=== PATIENT | male | born 1945 | race Caucasian/White ===

== ENCOUNTER 2016-10-08 14:38 | Inpatient (IN) | payer MEDICARE, OTHER ==
[~2016-10-08] VITALS: Ht 182.9 cm; Wt 84.3 kg
[2016-10-08 14:58] VITALS: BP 161/92; PULSE 96; RESP 22; O2SAT 99
[2016-10-08 15:45] LABS: Mean Corpuscular Hemoglobin 31.3 pg (27.0-35.0); Mean Corpuscular Volume 91.7 fL (81-100)
[2016-10-08 15:46] LABS: Platelet Count 60 bil/L (150-400)
[2016-10-08 15:47] LABS: Magnesium 1.4 mg/dL (1.6-2.6)
[2016-10-08 16:29] LABS: BASOPHILS % (AUTO) 0 % (0-3); EOSINOPHILS % (AUTO) 0 % (0-5); MONOCYTES % (AUTO) 8 % (4-12); NEUTROPHILS % (AUTO) 2 % (40-74)
[2016-10-08] MEDS ORDERED: Sodium Chloride LOK Flush 10 mL Syringe IVFLUSH PRN ×2 (16:40)
[2016-10-08] MEDS ORDERED: Vancomycin Dose per Pharmacist XX SCH (16:45)
[2016-10-08] MEDS: MEROPENEM IV ONE ×2 (16:45→19:00)
[2016-10-08 16:56] LABS: INR 1.32 ratio
[2016-10-08] MEDS ORDERED: Vancomycin Dose per Pharmacist XX ONE (17:04)
[2016-10-08] MEDS ORDERED: Vancomycin Inj 1,500 MG in 0.9% Sodium Chloride 500 ML IV ONE (17:05)
--- NOTE | 2016-10-08 17:06 | PCM.PHAPRO ---
Progress Patient is a 71 y.o. male receiving vancomycin. Concurrent abx include: meropenum. Based on patient parameters vancomycin will receive a one-time dose of 1500mg Please reconsult pharmacy if the patient is admitted and you wish for vancomycin therapy to continue. Thank you for the consult in the care of this patient. RTM PharmD Collin Cohen Oct 08, 2016 17:06
[2016-10-08] MEDS: SODIUM CHLORIDE 0.9% IV SCH ×2 (17:30→19:38)
[2016-10-08] MEDS: SODIUM BICARB IV SCH ×2 (17:30→19:38)
--- NOTE | 2016-10-08 17:34 | ED.REPORT ---
HPI-Abd Pain M 40 and Over Date of Service Oct 08, 2016 ED Provider: Dandre Garcia MD 71 year old male with a hx of HTN presents to the ED due to abdominal pain onset 2 days ago. Associated symptoms include hiccups, fatigue, cough, night sweats, trouble urinating, diarrhea, thirst, fever, and abdominal distension. Patient's relays that he developed a sinus infection in August and went on a course of Augmentin. His stomach irritation began at this time and the infection has never completely resolved. He was put on Doxycycline 10 days ago to try to relieve his symptoms which was not effective. He was seen by his PCP two days ago and his abdominal pain continues to increase in severity. Pt rates his current pain at 5/10 and is not exacerbated by movement. In the past week, he has lost 4 lbs; has decreased, darkly colored urination; intermittent fever; and night sweats. Pt's says that he is slow and confused which is quite abnormal. Nursing Notes Stated Complaint: ABDOMINAL PAIN Chief Complaint: Male Abdominal Pain Nursing Notes Reviewed: Yes ([employer] not reconciled) Allergies: Coded Allergies: atenolol (Verified Allergy, Severe, hives, 10/08/16) doxycycline (Verified Adverse Reaction, Severe, abdominal cramping, ) amlodipine (Verified Adverse Reaction, Intermediate, ankle swelling, ) cetirizine (Verified Adverse Reaction, Intermediate, prostate issues, 10/08) hydrochlorothiazide (Verified Adverse Reaction, Intermediate, headache, ) hydrocodone (Verified Adverse Reaction, Intermediate, upset stomach, ) lisinopril (Verified Adverse Reaction, Intermediate, low sodium, 10/08/16) piroxicam (Verified Adverse Reaction, Intermediate, low iron, 10/08/16) Scheduled Diltiazem ER (Cartia XT) 120 Mg Cap.er.24h 120 MG PO QAM Omeprazole (Omeprazole) 20 Mg Capsule.dr 20 MG PO QAM Scheduled PRN Acetaminophen (Tylenol Arthritis) 650 Mg Tablet.er 1,300 MG PO TID PRN PRN For Pain Clobetasol Propionate (Clobetasol Propionate) 15 Gm Oint...g. 1 APPLIC TOPICAL DAILY PRN PRN scalp itching Naproxen Sodium (Aleve) 220 Mg Capsule 220 MG PO BID PRN PRN For Pain Sildenafil Citrate (Viagra) 100 Mg Tablet 50 MG PO DAILY PRN PRN for sexual activity General Time Seen by MD: 16:16 Chief Complaint Abdominal pain Hx Obtained From: Patient, Spouse Arrived By: Walk-in Sudden in Onset?: Yes Onset Occurred: More than a week ago... 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 Skin: Reports Diaphoresis Psychiatric: Reports: Confusion Physical Exam Initial Vital Signs Vital Signs (First) Date Time Temp Pulse Resp B/P Pulse Ox O2 Delivery O2 Flow Rate FiO2 10/08/16 14:58 37.4 96 22 161/92 99 Initial VS: Reviewed, Vital signs normal (except for mild hypertension) Head / Eyes: Atraumatic, Normocephalic, PERRL Extremities: Vascular intact, Neuro intact, No swelling, No tenderness Skin: Warm, Dry, No cyanosis Neurologic: Alert, Oriented, Nonfocal Psychiatric: Mood/affect normal, Behavior normal, Normal thought content General/Constitutional: Awake, Alert, Cooperative, Not toxic appearing Alertness: Positive: Confused Respiratory / Chest: Atraumatic, Breath sounds NL, Breath sounds = bilat, No respiratory distress Cardiovascular: Heart rate NL, Regular rhythm, Heart sounds NL Abdomen: Atraumatic, Non-tender pt and say abdomen is distended but this is not clinically appartent don't appreciate any masses or hernias Back: Atraumatic, Inspection NL, Full range of motion Interpretation & Diagnostics Interpretation & Diagnostics: BRAIN CT IMPRESSION: 1. No acute intracranial process. 2. Mild to moderate atrophy and chronic microvascular ischemic changes. 3. Right maxillary sinus disease. Dictated by: Fernanda Gaines M.D. on 10/08/2016 at 18:00 Approved by: Fernanda Gaines M.D. on 10/08/2016 at 18:01 Lab Results Interpretation Result Diagram: 10/08/16 1516 10/08/16 1516 Test 10/08/16 15:16 10/08/16 18:05 10/08/16 18:14 White Blood Count 216.8th/mm3 (3.8-10.1) Red Blood Count 2.65mil/mm3 (4.40-5.80) Hemoglobin 8.3g/dL (13.8-17.2) Hematocrit 24.3% (41.0-50.0) Mean Corpuscular Volume 91.7fL (81-100) Mean Corpuscular Hemoglobin 31.3pg (27.0-35.0) Mean Corpuscular Hemoglobin Concent 34.2% (32.0-37.0) Red Cell Distribution Width 19.2% (12.3-15.4) Platelet Count 60bil/L (150-400) Neutrophils (%) (Auto) 2% (40-74) Lymphocytes (%) (Auto) 2% (14-46) Monocytes (%) (Auto) 8% (4-12) Eosinophils (%) (Auto) 0% (0-5) Basophils (%) (Auto) 0% (0-3) Blast Cells % 88% (0-0) Prothrombin Time 14.2sec (8.1-12.5) Prothromb Time International Ratio 1.32ratio Activated Partial Thromboplast Time 29.9sec (22.8-33.0) Fibrinogen 506mg/dL (157-380) Lactic Acid Level 2.3mmol/L (0.4-2.0) Magnesium Level 1.4mg/dL (1.6-2.6) Total Bilirubin 1.7mg/dL (0.0-1.2) Direct Bilirubin 0.8mg/dL (0.0-0.3) Aspartate Amino Transf (AST/SGOT) 45U/L (0-50) Alanine Aminotransferase (ALT/SGPT) 30U/L (0-44) Alkaline Phosphatase 128U/L (25-160) Lactate Dehydrogenase 580U/L (100-190) Total Protein 6.5g/dL (6.4-8.4) Albumin 3.6g/dL (3.4-5.0) Lipase 8U/L (13-60) Hold [place]re Top Tube Received (Received) Urine Color Dark yellow (YELLOW) Urine Appearance Hazy (CLEAR,HAZY) Urine pH 5.5 (5.0-8.0) Urine Specific Frostproof 1.010 (1.003-1.035) Urine Protein 30mg/dL (NEG,TRACE) Urine Glucose (UA) Negativemg/dL (NEGATIVE) Urine Ketones Tracemg/dL (NEGATIVE) Urine Occult Blood Trace (NEGATIVE) Urine Nitrite Negative (NEGATIVE) Urine Bilirubin Negative (NEGATIVE) Urine Urobilinogen 2.0mg/dL (NORMAL) Urine Leukocyte Esterase Negative (NEGATIVE) Urine RBC 0-2/hpf (0-2) Urine WBC 0-5/hpf (0-5) Urine Epithelial Cells Few/hpf (NONE-MOD) Urine Crystals None seen (NONE SEEN) Urine Bacteria Few/hpf (NONE-FEW) Urine Hyaline Casts Rare/lpf (NONE) Urine Granular Casts None seen (NONE SEEN) Urine Waxy Casts None seen (NONE SEEN) Urine Red Blood Cell Casts None seen (NONE SEEN) Urine White Blood Cell Casts None seen (NONE SEEN) Urine Mucus Present (None Seen) Urine Trichomonas None seen (NONE SEEN) Urine Yeast None (NONE SEEN) Urinalysis Comment None Urine Culture Reflexed Not indicated Lab Results Interpretation: CBC low there are severe leukocytosis, 80% blasts in the differential, and pathology called to indicate initials smear's indicates, anemia, thrombocytopenia CMP reveals significant hyponatremia, although there may be a component of pseudohyponatremia secondary to leukocytosis, renal function is normal LDH elevated Fibrinogen elevated Flow cytometry ordered Blood cultures pending Lactic acid marginally elevated CT Abd / Pelvis Interpretation IMPRESSION: 1. Mild dependent changes and trace effusions within the lungs bilaterally. 2. Hepatic steatosis. 3. Mild splenomegaly. 4. Minimal to mild scattered fluid within the abdomen and pelvis as above. 5. Unchanged hypodensity within the pancreatic uncinate process/head. Dictated by: Fernanda Gaines M.D. on 10/08/2016 at 18:06 Approved by: Fernanda Gaines M.D. on 10/08/2016 at 18:10 Study type: Abdominal CT no contrast Interpretation / Wet Read by: Interpret - Radiologist Re-Eval/Medical Decision Med Decision/Clinical Course This is a 71-year-old male presents complaining fevers, chills, sinus discomfort , and now abdominal pain. He has been treated with Augmentin due to sinus symptoms in August, the persisted and then treated with doxycycline which he discontinued to development of some abdominal cramping after 4 days, and that is been having fevers, chills and abdominal cramping and discomfort markedly more severe over the past 2 days. His is no little bit of trace confusional patient's able to give a good history. Has not markedly evident, he has been feeling much more profound fatigue. His chest pain shortness of breath. He has been having sweats that he associates with the fevers, but denies typical night sweats. He has noted mild weight loss. He is also complaining of fairly intractable hiccups past couple days, and then reports that they severely exacerbate the abdominal pain. He was seen by his PCP, referred to the surgeon and referred to the ED for further evaluation. He has normal vitals, but he appears very fatigued. He is not toxic, is not currently febrile, and his abdomen is clinically benign without signs of an acute surgical abdomen. The patient is white both say that his abdomen feels a little distended, but is not clear that clinically evident on my exam, and I do not appreciate overt ascites. I do not appreciate overt adenopathy. Patient's labs are dramatically abnormal, and severe leukocytosis and lasts are indicative of a new onset leukemia. Lab was sent to pathology, the pathologist review also indicates the presence of acute leukemia. Dr. Sai Allred from hematology oncology is involved, and called in with recommendations to facilitate the initial workup and treatment. Flow cytometry has been sent. Additional labs, including cultures are being drawn. The patient's been started on IV fluids with normal saline and 25 mEq of sodium bicarbonate per liter at a rate of 150 mL/h being initiated. Patient received some pain medicine and is significantly improved on reevaluation. When imaging is still reveals a right-sided sinusitis, and chest abdomen pelvis was without the definitive pathology evident on imaging. Dr. Balbuena recommended initiation of posterior 3 g, treatment with meropenem and vancomycin, along with the fluids. For the patient's intractable hiccups and some haloperidol was being administered. The PICC line is being requested, symptomatically recommends either us double or triple lumen PICC line to facilitate the anticipated course of therapy. The patient and are updated as to the findings of the leukemia. Dr. Schneider will see the patient in the morning. The patient is being admitted to the hospitalist service for continued management. Source of Hx: Old records Time of Eval: 18:27 Patient Status: Condition unchanged Re-Evaluation/Progress Note: Pt rechecked. Informed pt and of diagnosis of acute leukemia and initial plan of treatment. Pt will be started on antibiotics, pain meds, and chemotherapy immediately. Dr. Sai Balbuena will accept admit and will see the patient soon. Pt understands and agrees with plan. All questions addressed. Consultation : Referral / Consult Name: Sai Balbuena MD Consulted With: Hospitalist Call Returned at: 18:15 [employer]: Will see patient, Agrees with eval, Agrees with plan, Accepts admit Note: Case discussed with Dr. Balbuena. He will see patient and accept admit. Counseled Regarding: Diagnosis, Lab results, Need for admission Discharge & Departure Primary Impression: Acute leukemia Additional Impressions: Hyponatremia Sinusitis Sinusitis location: unspecified location Chronicity: unspecified Qualified Code: J32.9 - Chronic sinusitis, unspecified Abdominal pain Abdominal location: generalized Qualified Code: R10.84 - Generalized abdominal pain Singultus Disposition: ADMITTED TO HOSPITAL Vital Signs - All Vital Signs Date Time Temp Pulse Resp B/P Pulse Ox O2 Delivery O2 Flow Rate FiO2 10/08/16 14:58 37.4 96 22 161/92 99 )( All Prior VS Reviewed: Yes Condition: Stable Referrals: Bob Velarde MD (PCP) Afua Attestation Portion of this note were transcribed by Lopez Velásquez. I, Dr. Garcia, personally performed the history, physical exam, and medical decision-making: I reviewed and confirmed the accuracy for the information in the transcribed note. Signed by: afua Hernandez, 10/08/16 [id number] copies to: Bob Velarde MD, Matthew F MD Oct 08, 2016 17:34 LOPEZ VELÁSQUEZ 17, 2017 18:33 Counseled Regarding: Diagnosis, Lab results, Need for admission Discharge & Departure Primary Impression: Acute leukemia Additional Impressions: Hyponatremia Sinusitis Sinusitis location: unspecified location Chronicity: unspecified Qualified Code: J32.9 - Chronic sinusitis, unspecified Abdominal pain Abdominal location: generalized Qualified Code: R10.84 - Generalized abdominal pain Singultus Disposition: ADMITTED TO HOSPITAL Vital Signs - All Vital Signs Date Time Temp Pulse Resp B/P Pulse Ox O2 Delivery O2 Flow Rate FiO2 10/08/16 14:58 37.4 96 22 161/92 99 )( All Prior VS Reviewed: Yes Condition: Stable Referrals: Bob Velarde MD (PCP) Scribe Attestation Portion of this note were transcribed by Lopez Velásquez. I, Dr. Garcia, personally performed the history, physical exam, and medical decision-making: I reviewed and confirmed the accuracy for the information in the transcribed note. Signed by: afua Hernandez, 10/08/16 [id number] copies to: Bob Velarde MD, Matthew F MD Oct 08, 2016 17:34 LOPEZ VELÁSQUEZ Oct 08, 2016 18:33
[2016-10-08] MEDS ORDERED: ACET-2766 PO (17:36)
[2016-10-08] MEDS ORDERED: SILD100T PO (17:36)
[2016-10-08] MEDS ORDERED: NAPR220C11 PO (17:36)
[2016-10-08] MEDS ORDERED: CLOB15OI2 TOPICAL (17:36)
[2016-10-08] MEDS ORDERED: DILT120C52 PO (17:36)
[2016-10-08] MEDS ORDERED: OMEP20CA11 PO (17:36)
[2016-10-08] MEDS ORDERED: Ondansetron 2 mg/mL 2 mL Inj IVPUSH ONE (17:40)
--- NOTE | 2016-10-08 18:03 | DRSVH ---
PROCEDURE: CT BRAIN WITHOUT CONTRAST ([id number]) INDICATIONS: confusion TECHNIQUE: Noncontrast 4.5 mm thick angled axial sections acquired from the foramen magnum to the vertex, with c oronal reformats. COMPARISON: None. FINDINGS: Image quality: Excellent. CSF spaces: Basal cisterns are patent. No extra-axial fluid collections. The ventricles are symmet carolyn in size and shape. Brain: No intracranial bleeds or masses. There is cerebral volume loss for age, with resultant vent ricular and sulcal prominence. There are periventricular and deep white matter chronic small vessel ischemic changes. There is intracranial internal carotid artery atherosclerosis. Skull and face: Calvarium and visualized facial bones appear intact, without suspicious lesions. Sinuses: Prominent mucosal thickening and fluid are present within the right maxillary sinus. IMPRESSION: 1. No acute intracranial process. 2. Mild to moderate atrophy and chronic microvascular ischemic changes. 3. Right maxillary sinus disease. Dictated by: Fernanda Gaines M.D. on 10/08/2016 at 18:00 Approved by: Fernanda aGines M.D. on 10/08/2016 at 18:01
[2016-10-08] MEDS: HYDROmorphone 0.5 mg/0.5 mL iSecure Syringe IVPUSH PRN ×2 (18:12→21:42)
--- NOTE | 2016-10-08 18:12 | DRSVH ---
PROCEDURE: CT CHEST, ABDOMEN AND PELVIS WITH CONTRAST ([id number]) INDICATIONS: Fever, pain, bloodwork suggests new leukemia TECHNIQUE: After the administration of intravenous contrast, 5 mm thick sections acquired from the lung apices t o the symphysis. 5 mm coronal and sagittal reformats were performed, with additional 7 mm MIP reform ats through the lungs. For radiation dose reduction, the following was used: automated exposure con trol, adjustment of mA and/or kV according to patient size. COMPARISON: [facility], CT, ABDOMEN W&W/O CONTRAST, 08/17/2011, 12:34. FINDINGS: Image quality: Excellent. CHEST: Lungs and pleura: Mild dependent changes are present with trace effusions. Mediastinum: Heart size is normal. No pericardial effusion. No mediastinal or hilar adenopathy by size criteria. Thoracic aorta and central pulmonary arteries are normal in size. Esophagus is liliana l in caliber. No hiatal hernia. Chest wall: No axillary or supraclavicular adenopathy by size criteria. Thyroid gland is unremarkab le. ABDOMEN: Solid organs: Liver is mildly prominent with steatosis. The spleen is mildly enlarged without focal mass. Gallbladder is unremarkable. Biliary system is non dilated. Pancreas demonstrates an unchange d hypodense focus within hepatic head and uncinate process, compared to 08/17/11. No adrenal nodules. Kidneys demonstrate normal size and enhancement, without hydronephrosis. Peritoneum and bowel: Bowel loops demonstrate normal wall thickness and caliber. There is a minimal appearance of scattered fluid within the abdomen and dependent pelvis. It is seen most prominently in the left lower abdomen. Nodes and vessels: No retroperitoneal or mesenteric adenopathy by size criteria. Aorta and inferior vena cava are normal in size. Miscellaneous: No ventral hernias. PELVIS: Genitourinary: Bladder wall thickness is normal. Portions of the bladder are suboptimally evaluated secondary to metallic streak artifact from bilateral hip arthroplasties. Miscellaneous: No inguinal hernias or adenopathy. Bones: No suspicious bony lesions. No vertebral body compression fractures. IMPRESSION: 1. Mild dependent changes and trace effusions within the lungs bilaterally. 2. Hepatic steatosis. 3. Mild splenomegaly. 4. Minimal to mild scattered fluid within the abdomen and pelvis as above. 5. Unchanged hypodensity within the pancreatic uncinate process/head. Dictated by: Fernanda Gainse M.D. on 10/08/2016 at 18:06 Approved by: Fernanda Gaines M.D. on 10/08/2016 at 18:10
[2016-10-08] MEDS: Haloperidol 5 mg/mL Inj IVPUSH ONE ×2 (18:53→19:00)
[2016-10-08 18:58] LABS: APPEARANCE,URINE HAZY (CLEAR,HAZY); COLOR,URINE DARK YELLOW (YELLOW); OCCULT BLOOD,URINE TRACE (NEGATIVE); PH,URINE 5.5 (5.0-8.0)
[2016-10-08] MEDS ORDERED: HYDROmorphone 0.5 mg/0.5 mL iSecure Syringe IVPUSH PRN (19:30)
[2016-10-08] MEDS ORDERED: Ondansetron 2 mg/mL 2 mL Inj IVPUSH PRN ×2 (19:30)
[2016-10-08] MEDS ORDERED: Alum-Mag Hydrox-Simeth 30 mL Suspension PO PRN (19:30)
[2016-10-08 19:59] VITALS: BP 158/89; PULSE 98; RESP 20; O2SAT 99
[2016-10-08] MEDS ORDERED: Clobetasol Prop 0.05% 15 Gm Ointment TOPICAL PRN (20:00)
[2016-10-08] MEDS ORDERED: Sodium Chloride NAS 45 mL Spray NASAL ONE (20:00)
[2016-10-08] MEDS ORDERED: Sodium Chloride NAS 45 mL Spray NASAL PRN (20:00)
[2016-10-08 20:36] VITALS: BP 137/67; PULSE 99; RESP 20; O2SAT 92
[2016-10-08] MEDS ORDERED: Pantoprazole 4 mg/mL 10 mL Inj IVPUSH SCH (21:15)
[2016-10-08] MEDS ORDERED: Magnesium Sulf 2 Gm/50mL Water 2 GM in IV Premix 1 EACH IV ONE (21:20)
--- NOTE | 2016-10-08 23:38 | PCM.HPMED ---
Subjective Date of Service Oct 08, 2016 Primary Provider: Admitting Physician: May Hayward MD Primary Care Physician: Bob Velarde MD Attending Physician: May Hayward MD Chief Complaint: Fever HISTORY was OBTAINED FROM PATIENT / MEDITECH NOTES History of present illness 71-year-old man presented after 2 week history of sinus congestion/URI symptoms since 08/22/2016, no better with Augmentin and doxycycline stopped due to upset GI, then developed current 2 week history of abdominal discomfort cramping diffusely, bloating, vomiting not blood, diarrhea/ hiccoughs lasting 1+ hours, then developed fever for one day associated w/ confusion per - seen by PCP who sent them to the ER. One week history of 4 pound weight loss, dark urine, night sweats, intermittently confused per . Improved nasal breathing per after meropenem and vancomycin, no sore throat. In the ER 161/92, 92% on nasal cannula, afebrile, heart rate 99, respiratory rate 20, sodium bicarbonate, Dilaudid, Haldol, hydroxyurea, meropenem, vancomycin, Zofran, [facility], PICC line. ER doctor spoke to Dr. Balbuena oncologist, multiple studies and treatment for infection IV fluids were recommended Review of Systems - none of the following - F/C/sick contact / wt change/ STAPLES / no CP no acid reflux / bleeding/bruising / / yeast infections / rash ambulates edema shins due to diltiazem FAMILY HX grandmother unknonw cancer, CAD SOCIAL HX former smoker, intermittent EtOH MEDICATIONS Diltiazem ER (Cartia XT) 120 Mg Cap.er.24h 120 MG PO QAM - for BP Omeprazole (Omeprazole) 20 Mg Capsule. 20 MG PO QAM Scheduled PRN Acetaminophen (Tylenol Arthritis) 650 Mg Tablet.er 1,300 MG PO TID PRN PRN For Pain Clobetasol Propionate (Clobetasol Propionate) 15 Gm Oint...g. 1 APPLIC TOPICAL DAILY PRN PRN scalp itching Naproxen Sodium (Aleve) 220 Mg Capsule 220 MG PO BID PRN PRN For Pain Sildenafil Citrate (Viagra) 100 Mg Tablet 50 MG PO DAILY PRN PRN for sexual activity Past Medical/Surgical HX Hypospadias/erectile dysfunction/BPH History of cervical adenopathy 2003 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 Environmental sinus congestion allergies Hypertension Diverticulitis/acid reflux Arthritis/laminectomy Cataracts /hernia repairs 2 Sigmoidoscopy prior hyopnatremia mild due to HCTZ Allergies Coded Allergies: atenolol (Verified Allergy, Severe, hives, 10/08/16) doxycycline (Verified Adverse Reaction, Severe, abdominal cramping, ) amlodipine (Verified Adverse Reaction, Intermediate, ankle swelling, ) cetirizine (Verified Adverse Reaction, Intermediate, prostate issues, 10/08) hydrochlorothiazide (Verified Adverse Reaction, Intermediate, headache, ) hydrocodone (Verified Adverse Reaction, Intermediate, upset stomach, ) lisinopril (Verified Adverse Reaction, Intermediate, low sodium, 10/08/16) piroxicam (Verified Adverse Reaction, Intermediate, low iron, 10/08/16) PMH Social History Hx Substance Use: No Smoking Status: Former Smoker Exam Vital Signs Vital Sign - Last Date Time Temp Pulse Resp B/P Pulse Ox O2 Delivery O2 Flow Rate FiO2 10/08/16 20:36 37.5 99 20 137/67 92 Nasal Cannula 2.00 Lab and Diagnostics Labs Exam on admission 2L NC NAD A and O x 3 mood affect WNL very drowsy NC/AT no icterus no injected eyes EOMI PERRL // no oral lesions / hearing intact // THRUSH Supple neck CTAB equal chest rise / no accessory muscle use / speaks in full sentences / no rrw RRR S1 S2 / no mrg / 2+ radial pulses Soft nt nd + BS no hepatosplenomegaly No edema no cyanosis no ecchymosis of lower extremities No rash / no jaundice SHIPMAN Blood cultures pending Lactic acid 2.3 UA negative LFT lipase normal//INR 1.3// Bilirubin 1.7 LDH 580 Imaging PROCEDURE: CT CHEST, ABDOMEN AND PELVIS WITH CONTRAST ([id number]) INDICATIONS: Fever, pain, bloodwork suggests new leukemia TECHNIQUE: After the administration of intravenous contrast, 5 mm thick sections acquired from the lung apices to the symphysis. 5 mm coronal and sagittal reformats were performed, with additional 7 mm MIP reformats through the lungs. For radiation dose reduction, the following was used: automated exposure control, adjustment of mA and/or kV according to patient size. COMPARISON: [facility], CT, ABDOMEN W&W/O CONTRAST, 08/17/2011 , 12:34. FINDINGS: Image quality: Excellent. CHEST: Lungs and pleura: Mild dependent changes are present with trace effusions. Mediastinum: Heart size is normal. No pericardial effusion. No mediastinal or hilar adenopathy by size criteria. Thoracic aorta and central pulmonary arteries are normal in size. Esophagus is normal in caliber. No hiatal hernia. Chest wall: No axillary or supraclavicular adenopathy by size criteria. Thyroid gland is unremarkable. ABDOMEN: Solid organs: Liver is mildly prominent with steatosis. The spleen is mildly enlarged without focal mass. Gallbladder is unremarkable. Biliary system is non dilated. Pancreas demonstrates an unchanged hypodense focus within hepatic head and uncinate process, compared to 08/17/11. No adrenal nodules. Kidneys demonstrate normal size and enhancement, without hydronephrosis. Peritoneum and bowel: Bowel loops demonstrate normal wall thickness and caliber. There is a minimal appearance of scattered fluid within the abdomen and dependent pelvis. It is seen most prominently in the left lower abdomen. Nodes and vessels: No retroperitoneal or mesenteric adenopathy by size criteria. Aorta and inferior vena cava are normal in size. Miscellaneous: No ventral hernias. PELVIS: Genitourinary: Bladder wall thickness is normal. Portions of the bladder are suboptimally evaluated secondary to metallic streak artifact from bilateral hip arthroplasties. Miscellaneous: No inguinal hernias or adenopathy. Bones: No suspicious bony lesions. No vertebral body compression fractures. IMPRESSION: 1. Mild dependent changes and trace effusions within the lungs bilaterally. 2. Hepatic steatosis. 3. Mild splenomegaly. 4. Minimal to mild scattered fluid within the abdomen and pelvis as above. 5. Unchanged hypodensity within the pancreatic uncinate process/head. PROCEDURE: CT BRAIN WITHOUT CONTRAST ([id number]) INDICATIONS: confusion TECHNIQUE: Noncontrast 4.5 mm thick angled axial sections acquired from the foramen magnum to the vertex, with coronal reformats. COMPARISON: None. FINDINGS: Image quality: Excellent. CSF spaces: Basal cisterns are patent. No extra-axial fluid collections. The ventricles are symmetric in size and shape. Brain: No intracranial bleeds or masses. There is cerebral volume loss for age , with resultant ventricular and sulcal prominence. There are periventricular and deep white matter chronic small vessel ischemic changes. There is intracranial internal carotid artery atherosclerosis. Skull and face: Calvarium and visualized facial bones appear intact, without suspicious lesions. Sinuses: Prominent mucosal thickening and fluid are present within the right maxillary sinus. IMPRESSION: 1. No acute intracranial process. 2. Mild to moderate atrophy and chronic microvascular ischemic changes. 3. Right maxillary sinus disease. 05/2015 echo Interpretation Summary The left ventricle is normal in size, wall thickness, and systolic function without any focal wall motion abnormalities. The ejection fraction is estimated to be 60-65%. Assessment of diastolic parameters indicates a relaxation abnormality of the left ventricle, consistent with normal filling pressures. The right ventricle is normal in size, thickness and function. Pulmonary artery pressures cannot be estimated because of the lack of a measurable TR jet velocity. The left atrium is moderately dilated. Right atrial size is normal. There is mild mitral regurgitation. There is no other significant valvular heart disease. The aortic root is normal size. Result Diagram: 10/08/16 1516 10/08/16 1516 Assessment & Plan Active issues and reason for admission Acute leukemia, predominantly blasts, mild normocytic anemia with thrombocytopenia, associated lactic acidosis, manage for leukostasis, treating as infection, including thrush/sinusitis. -- Pending flow cytometry/smear pathology- Dr. Balbuena -- Vancomycin and meropenem bicarbonate drip hydroxyurea - Dr. Balbuena --IVF / PRN O2 / monitor hemorrhaging-hypoxia microcirculation Pseudohyponatremia due to elevated WBCs --pending serum osm --prior hx of mild hypona had been likely due to HCTZ at that time though --NS/bicarb gtt Low magnesium -- Replete infection sources pending for diarrhea treating Sinusitis/thrush --Urine nitrite was positive at PCP office today though in ER it was negative --ocean spray --pending c diff/sptum cx/resp viral/urine cx Abdominal pain w/ LLQ fluid on CT --pending fecal occult, monitor for ischemic bowel --hx of diverticulits not currently on CT --CT unremarkable w/ Hepatic steatosis. Mild splenomegaly.unchanged pancreatic focus. --normal lipase --Increase PPI IV, simethicone, maalox Chronic issues known prior to admission, present on admission Hypertension Diverticulitis/acid reflux Arthritis/laminectomy --- Continue diltiazem and hold naproxen Diet general DVT prophylaxis scd ambulate, thrombocytopenia and mild elevated INR Code full Disposition inpatient Assessment and plan were discussed with patient family. May Hayward MD Oct 08, 2016 21:52
[2016-10-08] MEDS ORDERED: Albuterol-Ipratropium 3 mL Inhalation Solution NEB PRN (23:40)
[2016-10-09] VITALS (11 sets, daily range): BP systolic 109–145; BP diastolic 63–80; PULSE 79–99; RESP 18–22; O2SAT 92–97
[2016-10-09] MEDS: Nystatin 100,000 Unit/mL 5 mL Suspension PO SCH ×5 (00:30→23:53)
[2016-10-09] MEDS: SODIUM BICARB IV SCH ×5 (04:11→21:36)
[2016-10-09] MEDS: SODIUM CHLORIDE 0.9% IV SCH ×5 (04:11→21:36)
[2016-10-09] MEDS: Meropenem Inj 500 MG in 0.9% Sodium Chloride 50 ML IV SCH ×3 (04:12→19:43)
--- NOTE | 2016-10-09 06:31 | NUR ---
Admit Admitted to 3012 from ED. Able to ambulate on arrival. Tele SR without c/o CP. 2L NC without SOB except with excessive nasal drainage. Tolerating PO intake without c/o n/v. Abd distended with c/o back pain for which prn Dilaudid was administered and effective. IV antibiotics and fluids administered per orders. Voiding concentrated urine per urinal. Personal belongings at bedside per patient request. Oriented to call light use with return demonstration.
[2016-10-09 06:46] LABS: EOSINOPHILS % (AUTO) 0 % (0-5); Mean Corpuscular Hemoglobin 31.1 pg (27.0-35.0); Mean Corpuscular Volume 90.5 fL (81-100); Platelet Count 51 bil/L (150-400)
[2016-10-09] MEDS ORDERED: Pantoprazole 20 mg ER24 Tablet PO SCH (07:30)
[2016-10-09 07:40] LABS: Magnesium 2.3 mg/dL (1.6-2.6); Phosphorus 3.3 mg/dL (2.5-4.9)
[2016-10-09] MEDS: Diltiazem CD 120 mg ER24 Capsule PO SCH (08:30)
[2016-10-09 08:46] LABS: BASOPHILS % (AUTO) 0 % (0-3); MONOCYTES % (AUTO) 5 % (4-12); NEUTROPHILS % (AUTO) 4 % (40-74)
[2016-10-09] MEDS: Pantoprazole 20 mg ER24 Tablet PO SCH ×2 (09:21→22:04)
--- NOTE | 2016-10-09 09:57 | CONS ---
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 He was in his usual state of good health until about six weeks ago when he developed sinus symptoms with congestion and associated upper respiratory symptoms. He was initially treated with Augmentin and later doxycycline, with minimal change in sinus symptoms. However, with antibiotics he developed GI upset with a crampy abdominal pain and bloating. Laboratory studies at an outside lab showed an elevated white cell count. He was meeting with Dr. Claude Pitt for a sinus evaluation, and complained of abdominal pain and difficulty breathing through his nose. He had also had fevers up to 101.4 degrees at home. He presented to the emergency department yesterday with these symptoms and was seen by Dr. Dandre Garcia. Laboratory studies while there revealed a total white cell count of 216.8 with 88% blasts, 8% monocytes, 2% neutrophils and 2% lymphocytes. Hemoglobin was 8.3 with hematocrit 24.3%, and platelets were 60,000. He denied any bleeding. Given his symptoms, he also underwent CT imaging of the chest, abdomen and pelvis with contrast. This showed mild dependent changes and trace infusions within the lungs bilaterally, as well as hepatic steatosis and mild splenomegaly. There is a small hypodensity in the pancreas, unchanged since July 2011. He is hospitalized for further management. PAST MEDICAL HISTORY: 1. Hypertension. 2. Lumbar surgery with fusion of L4, L5, S1. 3. Bilateral hip replacement. 4. Tonsillectomy. 5. Bilateral inguinal hernia repair. 6. Hypospadia. 7. Cataracts. 8. Hyponatremia. ALLERGIES: 1. ATENOLOL. 2. DOXYCYCLINE. 3. AMLODIPINE. 4. CETIRIZINE (ZYRTEC). 5. HYDROCHLOROTHIAZIDE. 6. HYDROCODONE. 7. LISINOPRIL. 8. PIROXICAM. MEDICATIONS: 1. Diltiazem 120 mg p.o. daily. 2. Simethicone 80 mg p.o. q.h.s. 3. Protonix 20 mg p.o. b.i.d. 4. Meropenem 500 mg IV q.8 h. 5. Nystatin suspension 5,000 units after meals and at bedtime. 6. DuoNeb inhaler p.r.n. 7. Clobetasol 0.05% ointment to scalp p.r.n. 8. Maalox p.r.n. 9. Ondansetron 48 mg IV or p.o. q.4 h. p.r.n. 10. Tylenol p.r.n. 11. Normal saline plus 1 amp bicarb per L at 150 mL/h. FAMILY HISTORY: Unspecified malignancy in his grandmother. SOCIAL HISTORY AND HABITS: The patient and his live in [place]. He was in the but denies any known exposure to radiation or asbestos. He also worked at the [employer] in [place] where he worked in the [employer]. 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 He smoked briefly in the service, but quit in 1964. He rarely drinks alcohol, perhaps most recently last summer. REVIEW OF SYSTEMS: He has had occasional headaches. No dizziness or disequilibrium. He has had some fevers above 101 degrees at home. No chills or sweats. No developing lymphadenopathy. No acute change in vision or hearing but he has had prior cataract surgery. He has had sinus stuffiness and pain over the past six weeks or so. No significant hoarseness or dysphagia. He has had some increased dyspnea on exertion but comfortable at rest. Rare cough, nonproductive. Occasional GE reflux symptoms. He has had nausea since his antibiotics. He has had abdominal bloating and discomfort, primarily cramping. He notes rare loose stool, but not diarrhea. No bleeding or atypical bruising. No dysuria. No significant edema. No acute arthritic complaints, although he has a history of low back pain with prior lumbar surgery. No depression or anxiety. Remaining review of systems is unremarkable. PHYSICAL EXAMINATION: This is a pleasant, healthy-appearing, slightly older gentleman in no acute distress. Vitals: T 36.7, P 83, R 18, BP 123/66, O2 saturation 97% on 2 L oxygen by nasal cannula. Height 72 inches. Weight 200 pounds (91 kg). BSA 2.16 m2. Performance status 0 (100%). HEENT: Pupils equally round, reactive to light. Extraocular muscles intact. Sclerae anicteric. Conjunctivae pale. Mucous membranes moist. No oral lesions. Nodes: Some shotty lymphadenopathy in the neck. No axillary or inguinal lymphadenopathy. Chest: A few basilar crackles, otherwise clear. Cardiac exam: Regular rate and rhythm with normal S1, S2. A 1/6 systolic ejection murmur across the precordium. Abdomen is soft. Mild diffuse tenderness without rebound or guarding. No palpable masses or organomegaly. Extremities: No edema, 2+ distal pulses. No calf tenderness. No cyanosis or clubbing. No petechiae or ecchymoses. Neuro: Alert and cooperative with no gross focal deficits. LABORATORIES: WBC 212.3, with approximately 90% blasts and 2% to 4% neutrophils, hemoglobin 7.5, hematocrit 21.8%, MCV 90, platelets 51,000. Sodium 117, potassium 4.0, BUN 19, creatinine 0.81, glucose 113, calcium 7.8. Albumin 3.6. Phosphorus 3.3, magnesium 2.3. AST 45, ALT 30, alkaline phosphatase 128. LDH 580 (normal 100-190). Uric acid 5.2 (normal). PT 14.2, INR 1.32, PTT 29.9. Fibrinogen 506 (high). ASSESSMENT AND PLAN: Strong suspicion for acute myelogenous leukemia: The patient presented with a 6-week history of sinus and upper respiratory symptoms, unresponsive to oral antibiotics with Augmentin and doxycycline, which led to increased abdominal bloating and discomfort. CT imaging from the emergency department shows no significant abnormality. However, he has a total white count of over 200,000. He received a single dose of hydroxyurea 3 g by mouth yesterday and will receive an additional 4 g by mouth today. He has worsening anemia. Type and cross. Transfuse 2 units irradiated Leukopoor packed red blood cells today after premedication with Tylenol 650 mg by mouth and hydrocortisone 50 mg IV. Await results of cytogenetics and FISH testing, which is being done in [place]. Results should be available later today, and I will discuss this with the patient and the Hospitalist team. This will help to classify his acute myeloid leukemia, which will determine the treatment approach. In addition, he needs bone marrow studies, which I will perform early Tuesday morning. However, anticipate starting intravenous chemotherapy as soon as his leukemic clone is classified. In the meantime, he needs a double-lumen peripherally inserted central catheter line as soon as possible to help administer ongoing and upcoming treatment. Alkalinize his blood and urine with 1 L of normal saline plus 1 amp of sodium bicarb per L at a rate of 150 mL/h. Start allopurinol in anticipation of possible tumor lysis syndrome. Monitor electrolytes and other parameters closely, with daily CBC, differential, platelets, CMP, phosphorus, magnesium and uric acid. Cardiac echo today will assess his left ventricular ejection fraction prior to anthracycline therapy. Fortunately, prior echocardiogram in May 2015, done to evaluate a murmur, was normal with a left ventricular ejection fraction of 60% to 65%. The patient's profound hyponatremia is entirely asymptomatic, and I suspect this is pseudohyponatremia associated with his profoundly abnormal hematologic findings. Manage closely per the Hospitalist team. Despite having a very high white count, he has very few neutrophils, and of these, many may not be functional. I would treat him as a febrile neutropenic, particularly in light of his recent fevers, and he is now on treatment with meropenem and vancomycin. We will continue to monitor this closely. The most likely treatment in this setting is a 7 + 3 regimen, which includes seven days of continuous infusion cytarabine 200 mg/m2 per day with idarubicin 12 mg/m2 IV push on each of the first three days of treatment. However, awaiting final classification of his disease, we will control his white cell count for the time being with daily hydroxyurea. A finding of acute promyelocytic leukemia would significantly change our treatment recommendations. Thank you very much for allowing us to participate in your patient's care. [facility]
[2016-10-09] MEDS ORDERED: Hydrocortisone 50 mg/mL 2 mL Inj IV ONE (11:25)
[2016-10-09] MEDS ORDERED: 0.9% Sodium Chloride 250 ML ONE ×2 (12:32→19:21)
--- NOTE | 2016-10-09 14:45 | DRSVH ---
[facility] [address] [place] [address] Echocardiogram Report Name: JEFF AMEZCUA LStudy Date: 10/09/2016 Height: 72 in Hospital Exam Location: [facility] Weight: 200 lb Gender: Male BSA: 2.1 m2 : 1945 Age: 71 yrs BP: 123/66 mmHg Reason For Study: Pre Chemo (ICD Code V67.2) Ordering Physician: Sai Balbuena Performed By: Dasia Parker Referring Physician: Bob Velarde Interpretation Summary The left ventricle is normal in size. Left ventricular systolic function is normal without focal wall motion abnormalities. The ejection fraction is estimated to be 60-65%. The right ventricle is normal in size and function. The right ventricular systolic pressure is estimated at 44 mmHg assuming a right atrial pressure of 3 mm Hg. The left atrium is moderately dilated. Right atrial size is normal. There is no significant valvular heart disease. The aortic root is normal size. There is a trivial pericardial effusion noted. There are no echocardiographic indications of cardiac tamponade. There is a moderate left-sided pleural effusion. Procedure: A two-dimensional transthoracic echocardiogram with color flow and Doppler was performed. The study quality was technically adequate. Comparison is made with the echocardiogram of 06/03/2015. The patient was in normal sinus rhythm during the exam. Left Ventricle: The left ventricle is normal in size. Left ventricular wall thickness is mildly increased. Left ventricular systolic function is normal without focal wall motion abnormalities. The ejection fraction is estimated to be 60-65%. Assessment of diastolic parameters indicates normal left ventricular diastolic function and normal filling pressures. Right Ventricle: The right ventricle is normal in size and function. Atria: The left atrium is moderately dilated. Right atrial size is normal. The interatrial septum is intact with no evidence for an atrial septal defect. There is no Doppler evidence for an interatrial shunt. Mitral Valve: The mitral valve leaflets are slightly calcified. There is mild mitral regurgitation. Aortic Valve: The aortic valve is trileaflet. The aortic valve is slightly calcified. The aortic valve opens well. No aortic regurgitation is present. Tricuspid Valve: The tricuspid valve is normal. There is mild tricuspid regurgitation. The right ventricular systolic pressure is estimated at 44 mmHg assuming a right atrial pressure of 3 mm Hg. Pulmonic Valve: The pulmonic valve is not well visualized. There is no significant valvular heart disease. Great Vessels: The aortic root is normal size. The ascending aorta is normal in size. The aortic arch is at the upper limits of normal in size. The IVC is of normal diameter and collapses greater than 50% with a sniff. This suggests a low right atrial pressure of 3 mm Hg. Pericardium/ Pleura There is a trivial pericardial effusion noted. There are no echocardiographic indications of cardiac tamponade. There is a moderate left-sided pleural effusion. MMode/2D Measurements & Calculations LVIDd: 4.4 cm LA dimension: 3.8 cm RA long axis LVOT diam: 2.2 cm LVIDs: 2.7 cm Ao root diam FS: 38.8 % LA A2 area: 25.9 cm RA area EPSS: 0.67 cm LA A4 area: 25.6 cm asc Aorta Diam IVSd: 1.1 cm LA length (vol) : 19.3 cm LVPWd: 1.2 cm RA vol Ao Arch Diam (Prox LA vol: 95.2 ml : 49.9 ml Trans): 3.3 cm LA vol index RA : 23.4 mm2 IVC diam: 2.0 cm LV orourke. diameter/BSA LV sys. diameter/BSA RVD1 (basal) (cm/m^2): 2.1 (cm/m^2): 1.3 Doppler Measurements & Calculations Ao V2 max MV E max alfredo MV E/A: 1.1 TR max alfredo : 243.5 cm/sec : 110.1 cm/sec Med Peak E' Alfredo : 318.8 cm/sec Ao max PG MV A max alfredo TR max PG : 23.7 mmHg : 96.1 cm/sec E/E' med: 10.1 : 40.7 mmHg Ao mean PG MV P1/2t: 52.7 msec Pulm A Revs Dur PA V2 max : 10.8 mmHg : 95.4 cm/sec LVOT Max Alfredo MV A dur: 0.08 sec PA mean PG : 144.2 cm/sec PA Accel Time EVAN(I,D): 2.5 cm : 0.11 sec sev ratio MV dec time MV P1/2t max alfredo Ao V2 mean LV V1 max PG : 0.18 sec : 150.4 cm/sec MVA(P1/2t): 4.2 cm2 Ao V2 VTI: 41.7 cm LV V1 VTI EVAN(V,D): 2.2 cm2 : 28.7 cm PA V2 mean EVAN indexed to BSA Pulm A Revs Dur - MV : 66.8 cm/sec (cm^2/m^2): 1.2 A Dur: 0.01 msec Reading Physician:TIFFANY
--- NOTE | 2016-10-09 15:23 | NUR ---
Social Work: Initial Assessment Data: Pt is a 71 y/o male admitted for new acute leukemia. Pt's PCP is Dr Velarde, pt's insurance is Medicare with [employer] supp. EMR reviewed. Readmit score not listed. SUPERVISOR SPEECH met with pt and family at bedside, role explained. Pt states that he lives in [place] with his spouse in a single story home where he uses no DME. Pt states he drives, has hx with [facility], no hx with SNF, no LTC or VA benefits. Pt states he is not a caregiver. Pt does not have AD/DPOA, accepted information provided by SUPERVISOR SPEECH. SUPERVISOR SPEECH will continue to follow for possible HH need. Assessment: Pt who is independent at baseline. Plan: Pt will d/c home via POV with spouse when medically stable. SUPERVISOR SPEECH will continue to follow for possible HH need. JAZMIN Chen Addendum: 10/09/16 at 1525 by JUAN CAMARENA Amended: Links added.
--- NOTE | 2016-10-09 16:57 | DRSVH ---
PROCEDURE: X-RAY PICC LINE PLACEMENT BY NURSE ([id number]) INDICATIONS: New onset Leukemia, chemo COMPARISON: None. FINDINGS: PICC was placed by the intravenous therapy team from the right side. Fluoroscopic spot fi lm demonstrates tip of PICC projects over the mid-SVC. IMPRESSION: Tip of PICC projects over the mid SVC. Dictated by: Fernanda Gaines M.D. on 10/09/2016 at 16:54 Approved by: Fernanda Gaines M.D. on 10/09/2016 at 16:56
[2016-10-09] MEDS ORDERED: Sodium Chloride LOK Flush 10 mL Syringe IVFLUSH PRN ×2 (17:15)
--- NOTE | 2016-10-09 17:19 | PCM.PNMED ---
Subjective Date of Service Oct 09, 2016 Subjective 71-year-old man presented after 2 week history of sinus congestion/URI symptoms since 08/22/2016, no better with Augmentin and doxycycline stopped due to upset GI , then developed current 2 week history of abdominal discomfort cramping diffusely, bloating, vomiting not blood, diarrhea/hiccoughs lasting 1+ hours, then developed fever for one day associated w/ confusion per . Overnight patient had no acute events. This morning patient reports feeling okay, this new diagnosis of Leukemia is a bit of a surprise to him. He states that he is feeling as well as can be expected. His reports that he is much less confused than he had been. His last episode of diarrhea was on and he has not had a bowel movement since that time, He states he has not eaten much either. He reports no headache, no abdominal pain, mild difficulty breathing due to his ongoing sinus issue. Exam Vital Signs Vital Sign - Last Date Time Temp Pulse Resp B/P Pulse Ox O2 Delivery O2 Flow Rate FiO2 10/09/16 05:54 87 10/09/16 01:08 36.8 22 109/63 92 Nasal Cannula 2.00 Intake and Output 10/08/16 10/08/16 10/09/16 Cumulative From/Thru 15:00 23:00 07:00 10/08/16 14:58 - 10/09/16 06:23 Intake Total 2429 ml 2429 ml Output Total 900 ml 900 ml Balance 1529 ml 1529 ml Intake Oral 400 ml 400 ml IV Total 2029 ml 2029 ml Output Urine Total 900 ml 900 ml # Bowel Movements 0 0 Exam General: No acute distress, well-developed, well-nourished, appropriately interactive HEENT: Normocephalic, atraumatic. External ears without defect. Pupils equal, round, and reactive to light and accommodation. Anicteric sclerae, moist conjunctivae, and no lid lag. Oropharynx free of erythema and cobble stoning with moist mucosa. No white exudates visualized Neck: Supple with full range of motion. No jugular venous distension. No bruits. No lymphadenopathy or thyromegaly. Cardiovascular: Regular rate and rhythm with II/ systolic murmur, rubs, or gallops appreciated Pulmonary: Clear to auscultation bilaterally with no crackles, wheezes, or rhonchi. Normal respiratory effort with no use of accessory muscles. Abdomen: Bowel tones present. Full feeling, nontender, nondistended. No hepatosplenomegaly or masses appreciated. Extremities: No clubbing, cyanosis, edema, or lymphadenopathy appreciated. Skin: Normal temperature, turgor, and texture; no rash, ulcers, or subcutaneous nodules appreciated. Neurological: Cranial nerves grossly intact. Normal muscle strength, tone, and bulk. No known gait impairment. Psychiatric: Normal mood and affect. Alert and oriented to person, place, and time. Lab and Diagnostics Result Diagram: 10/08/16 1516 10/08/16 2245 X-Rays, CTs and MRIs CT Chest abdomen pelvis with contrast IMPRESSION: 1. Mild dependent changes and trace effusions within the lungs bilaterally. 2. Hepatic steatosis. 3. Mild splenomegaly. 4. Minimal to mild scattered fluid within the abdomen and pelvis as above. 5. Unchanged hypodensity within the pancreatic uncinate process/head. Dictated by: Fernanda Gaines M.D. on 10/08/2016 at 18:06 CT brain without contrast IMPRESSION: 1. No acute intracranial process. 2. Mild to moderate atrophy and chronic microvascular ischemic changes. 3. Right maxillary sinus disease. Dictated by: Fernanda Gaines M.D. on 10/08/2016 at 18:00 Cardiac Echo Impressions Echocardiogram Report Interpretation Summary The left ventricle is normal in size. Left ventricular systolic function is normal without focal wall motion abnormalities. The ejection fraction is estimated to be 60-65%. The right ventricle is normal in size and function. The right ventricular systolic pressure is estimated at 44 mmHg assuming a right atrial pressure of 3 mm Hg. The left atrium is moderately dilated. Right atrial size is normal. There is no significant valvular heart disease. The aortic root is normal size. There is a trivial pericardial effusion noted. There are no echocardiographic indications of cardiac tamponade. There is a moderate left-sided pleural effusion. Assessment & Plan 71-year-old man presented after 2 week history of sinus congestion/URI symptoms since 08/22/2016, no better with Augmentin and doxycycline which was stopped due to upset GI, then developed current 2 week history of abdominal discomfort, cramping diffusely, bloating, vomiting not blood, diarrhea/hiccoughs lasting 1+ hours, then developed fever for one day associated w/ confusion per . Acute leukemia, predominantly blasts, mild normocytic anemia with thrombocytopenia, associated lactic acidosis, manage for leukostasis, treating as infection, including thrush/sinusitis. -- Pending flow cytometry/smear pathology- Dr. Balbuena -- Vancomycin and meropenem bicarbonate drip hydroxyurea - Dr. Balbuena -- IVF / PRN O2 / monitor hemorrhaging-hypoxia microcirculation -- Blood transfusion of 2 units of leuko-poor packed red blood cells to be given today. -- We will plan for bone marrow studies on Tuesday to be completed by Dr. 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 Balbuena of oncology following, we appreciate his input Pseudohyponatremia due to elevated WBCs -- Serum osmolality low at 247 -- prior hx of mild hyponatremia had been likely due to HCTZ at that time though -- NS/bicarb gtt when 150 mL/h -- Recheck chemistries in the morning Bacteremia, gram-negative variable rods, present on admission, active -- 2 blood culture bottles are growing gram variable rods. -- Patient on meropenem and vancomycin IV. Low magnesium -- 1.4 on admission, 2 g magnesium sulfate given IV which increased magnesium level to 2.6. -- Recheck magnesium in the morning infection sources pending for diarrhea treating Sinusitis/thrush --Urine nitrite was positive at PCP office today though in ER it was negative -- ocean nasal spray -- pending acquisition for stool PCR/sptum cx -- urine culture shows no growth to date -- Viral respiratory panel negative Abdominal pain w/ LLQ fluid on CT --pending acquisition for fecal occult, monitor for ischemic bowel, currently no abdominal pain --hx of diverticulits not currently on CT --CT unremarkable w/ Hepatic steatosis. Mild splenomegaly.unchanged pancreatic focus. --normal lipase --Increase PPI IV, simethicone, maalox Thrush, present on admission, improving -- No sign of white exudate on physical exam today however patient has been using nystatin swish and swallow. -- Risk of thrush with antibiotics will increase therefore continue nystatin for a few days. Chronic issues known prior to admission, present on admission Hypertension Diverticulitis/acid reflux Arthritis/laminectomy --- Continue diltiazem and hold naproxen Diet general DVT prophylaxis scd ambulate, thrombocytopenia and mild elevated INR Code full Disposition inpatient Assessment and plan were discussed with patient family. Pain Evaluation: Adequate Pain Control GI Prophylaxis: Proton Pump Inhibitor VTE Prophylaxis: Other (thrombocytopenic) Resuscitation Status: CPR: Attempt Resuscitation Attending Statement The patient was seen and examined together with Dr. Partida on 10-09-16 and I agree with the history, exam and plan as outlined in the note above. Rhiannon Partida DO Oct 09, 2016 07:15 Tram Friedman MD Oct 10, 2016 17:08
[2016-10-09] MEDS ORDERED: Hydrocortisone 50 mg/mL 2 mL Inj IVPUSH ONE (19:25)
--- NOTE | 2016-10-09 19:32 | NUR ---
PICC line placed Pt. transferred to PICC suite at 1600. Double lumen picc placed by FOURTH MATE. Back to room at 1640. Pt. doing well.
--- NOTE | 2016-10-09 20:16 | NUR ---
Blood transfusion First unit started at 2009. Patient premedicated with Tylenol and Hydrocortisone, per MD order. MD up to sign consent, patient signed before start. Two nurses verified patient and unit. Close monitoring in place. Addendum: 10/10/16 at 0034 by GLEN SCHULTZ RN Second unit finished at 19. Vital signs stable throughout, patient did not have seem to have any reactions to transfusions.
[2016-10-10] VITALS (9 sets, daily range): BP systolic 132–163; BP diastolic 73–90; PULSE 74–92; RESP 16–20; O2SAT 95–99
[2016-10-10] MEDS: SODIUM CHLORIDE 0.9% IV SCH ×3 (01:11→15:30)
[2016-10-10] MEDS ORDERED: 0.9% Sodium Chloride 250 ML ONE (01:11)
[2016-10-10] MEDS: SODIUM BICARB IV SCH ×3 (01:11→15:30)
[2016-10-10] MEDS: Meropenem Inj 500 MG in 0.9% Sodium Chloride 50 ML IV SCH ×3 (03:02→18:35)
[2016-10-10 03:43] LABS: Mean Corpuscular Hemoglobin 30.8 pg (27.0-35.0); Mean Corpuscular Volume 87.5 fL (81-100)
[2016-10-10 03:50] LABS: EOSINOPHILS % (AUTO) 0 % (0-5)
[2016-10-10 04:08] LABS: BASOPHILS % (AUTO) 0 % (0-3); MONOCYTES % (AUTO) 1 % (4-12); NEUTROPHILS % (AUTO) 2 % (40-74)
[2016-10-10 04:11] LABS: Platelet Count 30 bil/L (150-400)
[2016-10-10 04:12] LABS: Magnesium 2.5 mg/dL (1.6-2.6); Phosphorus 3.3 mg/dL (2.5-4.9)
--- NOTE | 2016-10-10 04:28 | NUR ---
Critical labs Patient's platelet count this morning, is 30, decreased from 51 yesterday. WBC is 81.3, decreased from 212 yesterday. MD paged with both results, no new order received and said that they will pass it on to the day oncologist. Patient is stable at this time.
[2016-10-10] MEDS: Diltiazem CD 120 mg ER24 Capsule PO SCH (08:17)
[2016-10-10] MEDS: Nystatin 100,000 Unit/mL 5 mL Suspension PO SCH ×4 (08:17→22:31)
[2016-10-10] MEDS: Pantoprazole 20 mg ER24 Tablet PO SCH ×2 (08:17→20:39)
--- NOTE | 2016-10-10 08:39 | PCM.PNMED ---
Subjective Date of Service Oct 10, 2016 Subjective Uneventful night, no bleeding no further fever. Dr Jiménez here discussing diagnosis with him, AML, to start chemotherapy. On Meropenem and Vanco. Family questions answered. Exam Vital Signs Vital Sign - Last Date Time Temp Pulse Resp B/P Pulse Ox O2 Delivery O2 Flow Rate FiO2 10/10/16 06:27 74 10/10/16 05:37 36.7 20 132/82 99 Room Air 10/09/16 18:03 1.00 Intake and Output 10/09/16 10/09/16 10/10/16 Cumulative From/Thru 15:00 23:00 07:00 10/08/16 14:58 - 10/10/16 06:05 Intake Total 4177 ml 795 ml 7401 ml Output Total 2040 ml 1550 ml 4490 ml Balance 2137 ml -755 ml 2911 ml Intake Oral 200 ml 400 ml 1000 ml IV Total 3706 ml 100 ml 5835 ml Packed Cells 271 ml 295 ml 566 ml Output Urine Total 2040 ml 1550 ml 4490 ml # Bowel Movements 0 0 Exam Eyes; demetri, eom intact ENMT; mouth cavity clear no evidence of yeast, hydrated CV; S1S2 present no murmur Resp; clear to auscultation GI, soft, benign, non-tender Skin; no lessions or rash Neuro; 2-12 intact, no motor or sensory defects noted Lab and Diagnostics Result Diagram: 10/10/16 0330 10/10/16 0330 X-Rays, CTs and MRIs CT Chest abdomen pelvis with contrast IMPRESSION: 1. Mild dependent changes and trace effusions within the lungs bilaterally. 2. Hepatic steatosis. 3. Mild splenomegaly. 4. Minimal to mild scattered fluid within the abdomen and pelvis as above. 5. Unchanged hypodensity within the pancreatic uncinate process/head. Dictated by: Fernanda Gaines M.D. on 10/08/2016 at 18:06 CT brain without contrast IMPRESSION: 1. No acute intracranial process. 2. Mild to moderate atrophy and chronic microvascular ischemic changes. 3. Right maxillary sinus disease. Dictated by: Fernanda Gaines M.D. on 10/08/2016 at 18:00 Cardiac Echo Impressions Echocardiogram Report Interpretation Summary The left ventricle is normal in size. Left ventricular systolic function is normal without focal wall motion abnormalities. The ejection fraction is estimated to be 60-65%. The right ventricle is normal in size and function. The right ventricular systolic pressure is estimated at 44 mmHg assuming a right atrial pressure of 3 mm Hg. The left atrium is moderately dilated. Right atrial size is normal. There is no significant valvular heart disease. The aortic root is normal size. There is a trivial pericardial effusion noted. There are no echocardiographic indications of cardiac tamponade. There is a moderate left-sided pleural effusion. Assessment & Plan 71-year-old man presented after 2 week history of sinus congestion/URI symptoms since 08/22/2016, no better with Augmentin and doxycycline which was stopped due to upset GI, then developed current 2 week history of abdominal discomfort, cramping diffusely, bloating, vomiting not blood, diarrhea/hiccoughs lasting 1+ hours, then developed fever for one day associated w/ confusion per . Acute leukemia, probably AML, present on admission, active -- Pending flow cytometry/smear pathology- Dr. Balbuena, -- bicarbonate drip hydroxyurea - Dr. Balbuena -- IVF / PRN O2 / monitor hemorrhaging-hypoxia microcirculation -- Blood transfusion of 2 units of leuko-poor packed red blood cells given 10-09 -- We will plan for bone marrow studies on Tuesday to be completed by Dr. 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 -- Patient on meropenem and vancomycin IV, day 2, continue await cultures Low magnesium, present on admission, active -- 1.4 on admission, 2 g magnesium sulfate given IV which increased magnesium level to 2.6. -- Recheck magnesium in the morning Abdominal pain w/ LLQ fluid on CT, present on admission, resolved --pending acquisition for fecal occult, monitor for ischemic bowel, currently no abdominal pain --hx of diverticulits not currently on CT --CT unremarkable w/ Hepatic steatosis. Mild splenomegaly.unchanged pancreatic focus. --normal lipase --Increase PPI IV, simethicone, maalox Thrush, present on admission, improving -- No sign of white exudate on physical exam today however patient has been using nystatin swish and swallow. -- Risk of thrush with antibiotics will increase therefore continue nystatin for a few days. Chronic issues known prior to admission, present on admission Hypertension Diverticulitis/acid reflux Arthritis/laminectomy --- Continue diltiazem and hold naproxen Diet general DVT prophylaxis scd ambulate, thrombocytopenia and mild elevated INR Code full Disposition inpatient Assessment and plan were discussed with patient family. GI Prophylaxis: Proton Pump Inhibitor VTE Prophylaxis: Other (thrombocytopenic) Resuscitation Status: CPR: Attempt Resuscitation Tram Friedman MD Oct 10, 2016 08:39 Disposition inpatient Assessment and plan were discussed with patient family. GI Prophylaxis: Proton Pump Inhibitor VTE Prophylaxis: Other (thrombocytopenic) Resuscitation Status: CPR: Attempt Resuscitation Tram Friedman MD Oct 10, 2016 08:39
--- NOTE | 2016-10-10 10:22 | PROG NOTE ---
[address] [address] PROGRESS NOTE PATIENT: JEFF AMEZCUA : 1945 MR#: [id number] ADMIT: 10/08/2016 JOB ID: [id number] DATE: 10/10/2016 SUBJECTIVE: The patient is a 71-year-old gentleman hospitalized with acute myelogenous leukemia. Initial white blood cell count was 216.8 with 88% blasts. Additional FISH testing for PML-ASHLEY was negative for t(15; 17). He has been on oral hydroxyurea, awaiting final hematologic testing. He had a double-lumen PICC line placed in the right arm yesterday. Cardiac echo showed an ejection fraction of 60% to 65%. He has been afebrile. He is in good spirits this morning, anticipating upcoming intravenous chemotherapy. OBJECTIVE: Vitals: T 36.7, P 74, R 20, BP 132/82. O2 saturation 99% on room air. HEENT: Conjunctivae pink, mucous membranes moist. No oral lesions. Chest clear. Cardiac exam regular rate and rhythm. Abdomen soft, nontender. Extremities no edema, 2+ distal pulses. LABORATORIES: WBC 81.3 with 97% blasts, 2% neutrophils, hemoglobin 14.8, hematocrit 42%, platelets 30,000. Sodium 135, potassium 3.7. BUN 21, creatinine 0.69. Glucose 135. Uric acid 6.9. AST 42, ALT 28, alkaline phosphatase 94. LDH 596. Total protein 5.4. Albumin 3.0. ASSESSMENT AND PLAN: Newly-diagnosed de josé miguel acute myelogenous leukemia: The patient presented with a white count of 216 with approximately 90% blasts. Testing for acute promyelocytic leukemia was negative for t(15; 17) by FISH. Bone marrow studies will be obtained tomorrow morning. Administer hydroxyurea 2 g by mouth today. Monitor daily CBC, differential, platelets, and CMP, including uric acid. Transfuse with 2 units irradiated leuko-poor packed red blood cells if hematocrit is less than 25%, or irradiated platelets if platelet count is less than 15,000 or he is bleeding. Anticipate initiation of 7 days continuous infusion cytarabine 200 mg/m2 per day plus idarubicin 12 mg/m2 IV push on each of the 1st 3 days. This will begin after bone marrow studies tomorrow. Monitor for evidence of tumor lysis syndrome. I had an extensive conversation with the patient and his , explaining that he will be in hospital for at least another 8 days and potentially substantially longer in the event of active infection with fevers. Note that blood cultures obtained on October 08, 2016 preliminarily show gram variable rods in 2 cultures. He is currently afebrile on broad-spectrum antibiotic coverage with meropenem. Continue to monitor. MTDD
--- NOTE | 2016-10-10 15:02 | NUR ---
Transfer to [facility] New diagnosis of AML. Oral chemos admin today, IV chemo starting tomorrow. Transfer to [facility] for treatments. Pt transported to room 1010 by RN and CLIENT SERVICE COORDINATOR via w/c. Meds and belongings transferred with pt. Family at bedside. Report given to Zuly Parada RN
[2016-10-11] VITALS (14 sets, daily range): BP systolic 134–178; BP diastolic 72–86; PULSE 16–88; RESP 14–22; O2SAT 96–98
[2016-10-11] MEDS: SODIUM CHLORIDE 0.9% IV SCH ×5 (02:18→21:52)
[2016-10-11] MEDS: SODIUM BICARB IV SCH ×3 (02:18→19:47)
[2016-10-11] MEDS: Meropenem Inj 500 MG in 0.9% Sodium Chloride 50 ML IV SCH (03:46)
--- NOTE | 2016-10-11 03:54 | NUR ---
Anxiety At beginning of shift patient was complaining of some tightness of the chest, and anxiety. Patient appeared very anxious, and was having difficulties sleeping. MD notified of these symptoms and ordered for 0.5mg IV ativan to be given now. Medication was given, and upon reassessment patient was sleeping, and appeared comfortable. When patient later awoke, he was asked about his chest tightness and anxiety, patient stated that he was able to receive relief. Patient is currently sleeping and appears comfortable. Will continue to monitor, and continue Q 1 hour checks.
[2016-10-11 06:45] LABS: Mean Corpuscular Hemoglobin 30.2 pg (27.0-35.0); Mean Corpuscular Volume 91.1 fL (81-100)
[2016-10-11 06:52] LABS: Magnesium 2.1 mg/dL (1.6-2.6); Phosphorus 2.4 mg/dL (2.5-4.9)
[2016-10-11 06:58] LABS: Platelet Count 26 bil/L (150-400)
[2016-10-11] MEDS ORDERED: Heparin 5,000 Unit/mL Inj ONE (07:23)
[2016-10-11 07:32] LABS: BASOPHILS % (AUTO) 0 % (0-3); EOSINOPHILS % (AUTO) 0 % (0-5); MONOCYTES % (AUTO) 2 % (4-12); NEUTROPHILS % (AUTO) 1 % (40-74)
--- NOTE | 2016-10-11 08:42 | PROG NOTE ---
[address] [address] PROGRESS NOTE PATIENT: JEFF AMEZCUA : 1945 MR#: [id number] ADMIT: 10/08/2016 JOB ID: [id number] DATE: 10/11/2016 SUBJECTIVE: The patient is a 71-year-old gentleman, hospitalized for diagnostic testing and treatment of acute myelogenous leukemia. FISH testing for acute promyelocytic leukemia was negative for the T (15;17) translocation. Cardiac echo showed an excellent ejection fraction of 60-65%. He has been afebrile. He complains of dry mouth. Bone marrow studies are being performed today. OBJECTIVE: Vitals: T 36.5, P 80, R 22, BP 178/86, O2 saturation 98% on room air. HEENT: Conjunctivae pale. Mucous membranes moist. No oral lesions. Nodes: No adenopathy in the neck, axilla, or groin. Chest: Clear to auscultation and percussion throughout. Cardiac exam: Regular rate and rhythm with normal S1, S2. Abdomen: Soft, nontender. Normoactive bowel tones. No splenomegaly or masses. Extremities: No edema. 2+ distal pulses. No calf tenderness. LABORATORIES: WBC 136.4, with 95% blasts, hemoglobin 8.8, hematocrit 26.5%, platelets 26,000. Sodium 130, potassium 4.0, BUN 13, creatinine 0.5, glucose 107, calcium 7.4, albumin 2.9, AST 52, ALT 42, alkaline phosphatase 87. ASSESSMENT AND PLAN: De josé miguel acute myelogenous leukemia: The patient presented with a white count of 216 with about 90% blasts. Testing for acute promyelocytic leukemia was negative by FISH testing for T (15;17). Bone marrow studies were obtained today. We will proceed with induction chemotherapy. He has a double-lumen PICC line. Administer cytarabine 200 mg/m2 per day for seven days, plus idarubicin 12 mg/m2 IV push on each of the first three days. Side effects and benefits have been discussed with the patient and his , who agreed to the recommended approach. Monitor for evidence of tumor lysis syndrome. He has increasing shortness of breath today, and falling hemoglobin/hematocrit. Type and cross. Transfuse 2 units irradiated packed red blood cells today after premedication with Tylenol 650 mg by mouth and hydrocortisone 50 mg IV. Continue broad-spectrum antibiotic coverage with meropenem. Note that the two blood cultures were positive for Pseudomonas aeruginosa.
--- NOTE | 2016-10-11 08:46 | PROG NOTE ---
[address] [address] PROGRESS NOTE PATIENT: JEFF AMEZCUA : 1945 MR#: [id number] ADMIT: 10/08/2016 JOB ID: [id number] DATE: 10/11/2016 PROCEDURE: Bone marrow biopsy and aspiration. INDICATION: Evaluation of acute leukemia. DESCRIPTION OF PROCEDURE: The patient was consented. After a brief time-out, he again agreed to the procedure. He was placed in the prone position. The right posterior iliac crest was prepped. He received lidocaine 1% subcutaneously, then down to the bone surface. After adequate local anesthesia, an [place] needle was introduced into the right posterior iliac crest and approximately 8 mL aspirate with spicules removed. Slides were prepared and additional specimen placed in tubes for flow cytometry, cytogenetics, and FISH studies for AML. A Jamshidi needle was then introduced into the right posterior iliac crest and a 0.2 cm core specimen extracted. Touch preps were made and the remainder of the specimen placed in formalin for pathologic review. The patient tolerated the procedure well with minimal blood loss. Results should be available later this week.
--- NOTE | 2016-10-11 09:12 | NUR ---
[facility] signed
[2016-10-11] MEDS: Diltiazem CD 120 mg ER24 Capsule PO SCH (09:35)
[2016-10-11] MEDS: Pantoprazole 20 mg ER24 Tablet PO SCH ×2 (09:36→20:01)
[2016-10-11] MEDS: Nystatin 100,000 Unit/mL 5 mL Suspension PO SCH ×4 (09:38→22:49)
[2016-10-11] MEDS ORDERED: hydrALAZINE 20 mg/mL Inj IV PRN (10:05)
[2016-10-11] MEDS ORDERED: 0.9% Sodium Chloride 250 ML ONE ×4 (11:18→22:18)
[2016-10-11] MEDS ORDERED: [UNRECOGNIZED DRUG - OTHER] IV ONE (13:40)
[2016-10-11] MEDS ORDERED: SODIUM CHLORIDE 0.9% IV ONE (13:40)
[2016-10-11] MEDS ORDERED: Dexamethasone 10 mg/mL Inj IV SCH (13:45)
[2016-10-11] MEDS ORDERED: Palonosetron 0.05 mg/mL 5 mL Inj IV ONE (13:45)
[2016-10-11] MEDS ORDERED: CYTARABINE IV SCH ×2 (14:00→18:30)
[2016-10-11] MEDS ORDERED: IDARUBICIN IV SCH (14:00)
[2016-10-11] MEDS ORDERED: SODIUM CHLORIDE 0.9% IV SCH ×3 (14:00→18:30)
[2016-10-11] MEDS: Meropenem Inj 2,000 MG in 0.9% Sodium Chloride 100 ML IV SCH ×2 (15:47→22:55)
--- NOTE | 2016-10-11 17:37 | PCM.PNMED ---
Subjective Date of Service Oct 11, 2016 Subjective Underwent bone marrow biopsy today. Will be transfused PRBCs irradiated. Will be premedicated with Tylenol and hydrocortisone. Platelet 26. WBC 136. Will be started on induction chemotherapy later today. Had anxiety and started on lorazepam. Elevated BP noted Exam Vital Signs Vital Sign - Last Date Time Temp Pulse Resp B/P Pulse Ox O2 Delivery O2 Flow Rate FiO2 10/11/16 15:35 36.8 87 16 162/74 10/11/16 14:01 96 Room Air 10/09/16 18:03 1.00 Intake and Output 10/10/16 10/10/16 10/11/16 Cumulative From/Thru 15:00 23:00 07:00 10/08/16 14:58 - 10/11/16 06:54 Intake Total 3584 ml 600 ml 79224 ml Output Total 1650 ml 375 ml 6515 ml Balance 1934 ml 225 ml 5070 ml Intake Oral 2300 ml 600 ml 3900 ml IV Total 1284 ml 7119 ml Packed Cells 566 ml Output Urine Total 1650 ml 375 ml 6515 ml # Bowel Movements 2 0 2 Exam Eyes; demetri, eom intact ENMT; mouth cavity clear no evidence of yeast, hydrated CV; S1S2 present no murmur Resp; clear to auscultation GI, soft, benign, non-tender Skin; no lessions or rash Neuro; 2-12 intact, no motor or sensory defects noted IVs and Medications Medications Reviewed: Medications were reviewed in detail Lab and Diagnostics Result Diagram: 10/11/16 0620 10/11/16 0620 X-Rays, CTs and MRIs CT Chest abdomen pelvis with contrast IMPRESSION: 1. Mild dependent changes and trace effusions within the lungs bilaterally. 2. Hepatic steatosis. 3. Mild splenomegaly. 4. Minimal to mild scattered fluid within the abdomen and pelvis as above. 5. Unchanged hypodensity within the pancreatic uncinate process/head. Dictated by: Fernanda Gaines M.D. on 10/08/2016 at 18:06 CT brain without contrast IMPRESSION: 1. No acute intracranial process. 2. Mild to moderate atrophy and chronic microvascular ischemic changes. 3. Right maxillary sinus disease. Dictated by: Fernanda Gaines M.D. on 10/08/2016 at 18:00 Cardiac Echo Impressions Echocardiogram Report Interpretation Summary The left ventricle is normal in size. Left ventricular systolic function is normal without focal wall motion abnormalities. The ejection fraction is estimated to be 60-65%. The right ventricle is normal in size and function. The right ventricular systolic pressure is estimated at 44 mmHg assuming a right atrial pressure of 3 mm Hg. The left atrium is moderately dilated. Right atrial size is normal. There is no significant valvular heart disease. The aortic root is normal size. There is a trivial pericardial effusion noted. There are no echocardiographic indications of cardiac tamponade. There is a moderate left-sided pleural effusion. Assessment & Plan 71-year-old man presented after 2 week history of sinus congestion/URI symptoms since 08/22/2016, no better with Augmentin and doxycycline which was stopped due to upset GI, then developed current 2 week history of abdominal discomfort, cramping diffusely, bloating, vomiting not blood, diarrhea/hiccoughs lasting 1+ hours, then developed fever for one day associated w/ confusion per . 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 Balbuena, status post bone marrow biopsy today 10/11 -- Continue bicarbonate drip a,allupirinol - Dr. Balbuena. Watch out for TLS. Will be started on induction chemotherapy today. Cytarabine and darubicin -- IVF / PRN O2 / monitor hemorrhaging-hypoxia microcirculation -- Blood transfusion of 2 units of leuko-poor packed red blood cells given 10-09. Will be given 2 more PRBCs today 10/11 -- Allopurinol started for treatment of tumor lysis syndrome -- transfuse platelets if < 15,000 or bleeding (all irradiated) -- transfuse blood if Hb< 25 (all irradiated) #Pseudohyponatremia due to elevated WBCs, [id number] on admission, resolving -- Serum osmolality was low at 247 -- prior hx of mild hyponatremia had been likely due to HCTZ at that time though -- NS/bicarb gtt when 150 mL/h -- resolving #Bacteremia, gram-negative variable rods, present on admission, active -- 2 blood culture bottles are growing gram variable rods. -- Patient on meropenem and vancomycin IV, day 2, continue await cultures -ID consulted #Low magnesium, present on admission, active -- 1.4 on admission, 2 g magnesium sulfate given IV which increased magnesium level to 2.6. -- Recheck magnesium in the morning #Abdominal pain w/ LLQ fluid on CT, present on admission, resolved --pending acquisition for fecal occult, monitor for ischemic bowel, currently no abdominal pain --hx of diverticulits not currently on CT --CT unremarkable w/ Hepatic steatosis. Mild splenomegaly.unchanged pancreatic focus. --normal lipase --Increase PPI IV, simethicone, maalox #Thrush, present on admission, improving -- No sign of white exudate on physical exam today however patient has been using nystatin swish and swallow. -- Risk of thrush with antibiotics will increase therefore continue nystatin for a few days. Chronic issues known prior to admission, present on admission Hypertension Diverticulitis/acid reflux Arthritis/laminectomy --- Continue diltiazem and hold naproxen Diet general DVT prophylaxis scd ambulate, thrombocytopenia and mild elevated INR Code full Disposition: Pending hospital course GI Prophylaxis: Proton Pump Inhibitor VTE Prophylaxis: Other (thrombocytopenic) VTE Mechanical Devices: Intermittant Pneumatic CD Resuscitation Status: CPR: Attempt Resuscitation Maksim Miller MD Oct 11, 2016 17:36
[2016-10-11] MEDS: Dexamethasone 10 mg/50 mL NS IV SCH ×2 (18:17)
--- NOTE | 2016-10-11 19:31 | NUR ---
Blood Pt received 2 units of irradiated PRBC, no reactions noted. Pt complaining of difficulty breathing, after first unit of blood pt breathing easily. Pt spent most of the afternoon sitting in chair, had bone biopsy this am, frequently up to the bathroom to void. Pt complained of back pain, gave Tylenol and a hot pack, pt stated pain much better.
[2016-10-11] MEDS: Acyclovir 800 mg Tablet PO SCH (20:42)
[2016-10-11] MEDS: IDARUBICIN IV SCH (20:46)
[2016-10-11] MEDS: CYTARABINE IV SCH (21:52)
[2016-10-11] MEDS: LORazepam 0.5 mg Tablet PO PRN (22:49)
[2016-10-12] VITALS (9 sets, daily range): BP systolic 139–169; BP diastolic 72–83; PULSE 60–86; RESP 16–18; O2SAT 92–99
--- NOTE | 2016-10-12 01:06 | CONS ---
[address] [address] CONSULTATION REPORT PATIENT: JEFF AMEZCUA : 1945 MR#: [id number] ADMIT: 10/08/2016 JOB ID: [id number] DATE OF SERVICE: 10/11/[address] Miller for this timely consult. REASON FOR CONSULT: Pseudomonas sepsis in a patient with AML, newly diagnosed. HISTORY OF PRESENT ILLNESS: The patient is a 71-year-old gentleman who was been in reasonably good health until several weeks ago when he developed the onset of what he believed was a chronic sinus infection. He described generalized weakness, fatigue and occasional sweats and just a progressive debility associated to some degree with some sinus pressure. He sought evaluation and was treated with consecutive courses of oral antibiotics including Augmentin, later doxycycline. These produced GI discomfort, bloating and increased abdominal girth but no resolution of his generalized weakness. Because of these ongoing symptoms, the patient was referred to ENT, but the ENT physician astutely saw that he was too ill and sent him to the emergency department where he was subsequently evaluated and found to have a white blood count greater than 200,000 due to AML. There was no prior history of any hematologic issues. It was notable that on the day of admission, October 08, that he had had some fever which may have been associated with confusion, according to his , along with the increased abdominal girth, one episode of diarrhea, dark urine and just generalized progressive weakness. Following his admission, the patient was emergently transfused because of anemia and was started on broad-spectrum antibiotics. I was contacted over the weekend because his blood cultures are growing Pseudomonas and recommended at that time that meropenem be initiated and I have been formally consulted today. Earlier in the day, I was asked about meropenem dosing and recommended it to be increased somewhat. This afternoon, I had the opportunity to evaluate the patient in detail. The patient reports she is already feeling considerably better than prior to the admission to the hospital. He has received some IV antibiotics as well as multiple units of blood and will be started on chemotherapy later this evening. He reports that he had been having intermittent fevers, chills and sweats going back several weeks though none of these sound especially severe but they were certainly chronic. In association with this, he had some degree of sinus congestion and perhaps at times some dry cough which was not especially severe and led to the diagnosis of presumptive sinusitis. The GI discomfort seems to have been much more recent and it is thought to be a reaction to antibiotics. PAST MEDICAL HISTORY: 1. Hypertension. 2. Diverticulitis. 3. Status post spine surgery for arthritis. 4. Hyponatremia secondary to hydrochlorothiazide. 5. Status post bilateral hip replacements. 6. History of BPH. 7. Possible distant history of herpes lesions on the lips. SOCIAL HISTORY: The patient is an ex-smoker but that was decades ago in the [employer] and none since. He does not drink any significant amount of alcohol. Does not use any illicit drugs. He traveled to [place] about three years ago and took an [employer] cruise recently, but otherwise no travel to the [facility], and no travel to [place], [place] or the developing world. FAMILY HISTORY: Negative for tuberculosis in his parents, grandparents or siblings. He has never been exposed to anyone with TB. Of note, his has had recurrent herpes labialis. REVIEW OF SYSTEMS: The patient has had some headaches, especially frontal headache in the past week. No change in vision, however. He has had an intermittent sore throat which has been fairly minimal. He has had some sinus pressure and drainage at times. No particular problem with the ears. No stiff neck. No sores within the mouth and no lesions on the lips. He has had minimal dry cough which has been an off and on problem for a couple of weeks. Just today for the first time, his cough was productive of some whitish sputum that was sent for a sample. At no point has there been hemoptysis, chest pain or significant shortness of breath though he has just been overall very tired. He does report fevers, chills and sweats intermittently for the past several weeks. He has had anorexia for weeks associated with some weight loss. He has noticed his abdomen has become distended over the past few days and he had one episode of diarrhea on or about the that has not recurred. There has been no vomiting. He has not had dysuria or urgency. He has not noticed swollen lymph nodes in his neck or his groin and no swelling or problems with the joints. Just since he came into the hospital, he has developed tenderness and pain at the site of an IV site in his left antecubital fossa. Also, since he has been here, a PICC line has been placed in his right upper extremity without difficulty. Rest of review of systems is negative. PHYSICAL EXAMINATION: Reveals a fairly comfortable gentleman sitting up in no acute distress. He weighs 90 kg. BMI 27. He is afebrile. Temperature 36.8. He has been afebrile since admission. Pulse 87, respiratory rate 16, blood pressure 162/74. He is saturating well on room air. Examination of the head reveals no evidence of trauma. The sinuses are currently nontender. Conjunctivae surprisingly pink, but, of course, he has just received a couple units of blood. His nose is without eschar or abnormality. His oral cavity is notable for palatal petechia which are quite prominent. There is no thrush seen, pharyngitis or gingival lesions. His teeth are in reasonably good repair. His neck is without adenopathy. His neck is completely supple. His lungs are clear to auscultation posteriorly. Cardiac tones: Regular rate and rhythm without any murmur or rub. A PICC is present in the right upper extremity and it is new. Left upper extremity has a 3 cm area of tender erythematous phlebitis which extends proximally from an IV or phlebotomy puncture site in the middle of the antecubital fossa. This area does not have any surrounding cellulitis and though it is mildly tender, I do not think it is likely to be infected. The abdomen is somewhat protuberant but without appreciable organomegaly, and I cannot palpate a spleen. There is no focal tenderness. No Gill catheter is present. There is no suprapubic tenderness. No inguinal adenopathy is appreciated. His extremities are free of edema. There is no cellulitis or skin breakdown. Peripheral pulses are intact throughout. Neurologically, the patient is intact. The overall impression of the patient is that he looks remarkably healthy for someone just diagnosed with AML who is bacteremic and getting blood transfusions. Will start chemo within the next few hours. LABORATORIES: Include white blood count 212,000 in the ED, now 136,000. Hematocrit is currently 26. Platelet count also 26. Differential white count shows essentially all blast cells. His creatinine is 0.5. AST 52, ALT 42, alk phos 87. Albumin 2.9. Urinalysis without white cells. Fungitell and galactomannan were ordered on the 18th at my suggestion when he 1st arrived and these are still pending. Two of four blood culture bottles from admission have grown Pseudomonas aeruginosa. This Pseudomonas is quite sensitive including completely sensitive to Cipro, meropenem, Zosyn and cefepime. It is also sensitive to aminoglycosides. Urine grew Enterococcus faecalis. That was in the setting, however, of no urinary symptoms and a urinalysis without white cells so it likely represents asymptomatic bacteriuria. The urine does have a penicillin susceptible Enterococcus. Respiratory viral panel is negative. A sputum culture was sent today and shows some mixed johnathan with no polys. X-rays were reviewed carefully and I went over them with the family in the room so they can see the pictures. His chest actually looks pretty clear, though there are some trace pleural effusions. The abdomen is notable for a mildly enlarged gallbladder. The pancreas has a density in it which has been present and not changed in six years. There is some minimal scattered fluid in between the abdomen and dependent pelvis. The bladder wall is normal and no suspicious bony lesions are seen. The liver is somewhat fatty. A brain CT was done because of his confusion he had in the ED and shows right maxillary sinus disease. IMPRESSION: This relatively healthy gentleman presented this past [place], three days ago, acute myeloid leukemia. He is clearly having a blast crisis here with essentially 200,000 blasts seen in his blood along with profound anemia and thrombocytopenia. He was confused and febrile when he initially presented to the ED and turns out to have Pseudomonas in his blood. CT scans show maxillary sinusitis which has been a working diagnosis for several weeks with this man and also some mild splenomegaly and some fluid in the abdomen which should not be there. At this point, the patient looks remarkably stable given the gravity of his current illness and the fact he is bacteremic with Pseudomonas. There has been discussion in the literature going back to the 1980s about whether one or two drugs would be appropriate for Pseudomonas sepsis in a patient like this. Most of the literature now is in agreement that a single drug is adequate unless there is Pseudomonas pneumonia, which there is not here, or the patient is in shock and doing poorly. This situation is quite the opposite here as the patient looks great despite everything else that is going on. This patient is likely in a high-risk category for fungal infections and will benefit from antifungal prophylaxis. Though this is a little controversial, I think most would suggest it for an acute leukemic about to start induction chemo. 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 RECOMMENDATIONS: 1. Will continue with meropenem 2 g q.8 h. which is the increased dose we started this afternoon. 2. I will not add any other antipsuedomonal drugs at this point. 3. Serum for herpes simplex virus 1 and 2 antibodies will be checked tomorrow. 4. Acyclovir 800 mg p.o. b.i.d. will be added as a prophylactic agent while we await the serologies for herpes simplex virus. 5. Posaconazole 200 mg at a suspension every 8 hours Will be added as antifungal prophylaxis. 6. I answered considerable questions from the patient, his and daughter and the total duration of this visit including this morning's discussion with the team amounts to greater than 70 minutes. MTDD
[2016-10-12] MEDS: SODIUM CHLORIDE 0.9% IV SCH ×4 (02:34→23:02)
[2016-10-12] MEDS: SODIUM BICARB IV SCH ×4 (02:34→23:02)
--- NOTE | 2016-10-12 05:33 | NUR ---
Chemo started Pt had first doses of both ordered chemotherapies, tolerating well. PICC line patent with brisk blood return. Started new peripheral IV to accommodate antibiotics. Denies significant pain. Increase in productive cough in am, pt reports feeling better as lungs are clearing up. Voiding high volumes, taking adequate PO. Discussed anticipated side effects of chemo, answered questions, discussed plan of care. Hourly rounding ongoing.
[2016-10-12] MEDS: Meropenem Inj 2,000 MG in 0.9% Sodium Chloride 100 ML IV SCH ×3 (06:32→23:05)
[2016-10-12 07:29] LABS: EOSINOPHILS % (AUTO) 0 % (0-5); Mean Corpuscular Hemoglobin 30.8 pg (27.0-35.0); Mean Corpuscular Volume 90.4 fL (81-100)
[2016-10-12 07:39] LABS: Magnesium 2.2 mg/dL (1.6-2.6)
[2016-10-12 07:48] LABS: Platelet Count 27 bil/L (150-400)
[2016-10-12 08:57] LABS: BASOPHILS % (AUTO) 0 % (0-3); MONOCYTES % (AUTO) 3 % (4-12); NEUTROPHILS % (AUTO) 1 % (40-74)
[2016-10-12] MEDS: POSACONAZOLE PO SCH ×3 (09:02→18:37)
[2016-10-12] MEDS: Diltiazem CD 120 mg ER24 Capsule PO SCH (09:03)
[2016-10-12] MEDS: Pantoprazole 20 mg ER24 Tablet PO SCH ×2 (09:03→22:12)
[2016-10-12] MEDS: Acyclovir 800 mg Tablet PO SCH (09:03)
[2016-10-12] MEDS: Nystatin 100,000 Unit/mL 5 mL Suspension PO SCH ×4 (09:06→22:12)
--- NOTE | 2016-10-12 09:43 | PROG NOTE ---
[address] [address] PROGRESS NOTE PATIENT: JEFF AMEZCUA : 1945 MR#: [id number] ADMIT: 10/08/2016 JOB ID: [id number] DATE: 10/12/2016 SUBJECTIVE: The patient is a 71-year-old gentleman hospitalized for newly diagnosed acute myelogenous leukemia. He began treatment with induction leonor-C plus idarubicin yesterday. No acute nausea or vomiting. He slept well last night. Bone marrow studies were done yesterday, and he subsequently received 2 units of packed red blood cells prior to initiation of his chemotherapy. He is breathing comfortably this morning. OBJECTIVE: Vitals: T 36.5, P 78, R 18, BP 146/82. HEENT: Conjunctivae slightly pale. Mucous membranes moist. No oral lesions. Nodes: No adenopathy in the neck or axillae. Chest: Clear. Cardiac exam: Regular rate and rhythm with normal S1, S2. Abdomen: Soft, nontender. No splenomegaly or masses. Extremities: No edema, 2+ distal pulses. No calf tenderness. LABORATORIES: WBC 55.6 with 1% neutrophils, 92% blasts, hemoglobin 11.2, hematocrit 32.9%, platelets 27,000. Sodium 132, potassium 5.0, BUN 13, creatinine 0.49, glucose 164, calcium 7.2. Albumin 3.1. Magnesium 2.2, phosphorus 3.4, AST 47, ALT 49, alkaline phosphatase 89. Uric acid pending. ASSESSMENT AND PLAN: De josé miguel acute myelogenous leukemia: The patient presented with a white count of 216 with about 90% blasts. Bone marrow studies were obtained yesterday. Await results. He has a double-lumen peripherally inserted central catheter. He is on treatment with cytarabine 100 mg/m2 per day for 7 days plus idarubicin 12 mg/m2 IV push on each of the first three days. This is day 2/7. No significant toxicities at this time. No evidence of tumor lysis syndrome. Hemoglobin and hematocrit improved with the recent transfusion support. No indication for further transfusion with red cells or platelets today, but he is likely to need both in the near future. White cell count is falling rapidly, as expected. Recent blood cultures were positive for Pseudomonas aeruginosa, and urine culture was positive for Enterococcus faecalis. Appreciate input from Dr. Hackett from infectious disease. The patient remains on meropenem, acyclovir and posaconazole. Await results of herpes simplex virus 1 and 2 antibodies. Continue to check daily CBC, differential, platelets, CMP, uric acid, phosphorus and magnesium, and correct electrolytes and other abnormalities appropriately.
[2016-10-12] MEDS: Sodium-Potassium Phosphorus Packet PO SCH ×4 (10:06→22:12)
[2016-10-12 11:07] LABS: PNH Viability 95% (.)
--- NOTE | 2016-10-12 12:53 | PROG NOTE ---
[address] [address] PROGRESS NOTE PATIENT: JEFF AMEZCUA : 1945 MR#: [id number] ADMIT: 10/08/2016 JOB ID: [id number] DATE: 10/12/2016 INFECTIOUS DISEASE FOLLOWUP NOTE: REASON FOR FOLLOWUP: AML with Pseudomonas sepsis. INTERVAL HISTORY: The patient is just finishing up his first day or so of chemotherapy. He reports that he slept great last night and is feeling better than he had been for the past few days. He denies any headache, sore throat, or trouble swallowing. He does still have a cough which is intermittently productive of some thin sputum. No chest pain or shortness of breath. No nausea, vomiting, diarrhea. No pain with defecation or urination. PHYSICAL EXAMINATION: Reveals an afebrile gentleman, in no acute distress. Temp 36.5, pulse 60, respiratory rate 18, blood pressure 162/81, saturating 99% on room air. Mental status unremarkable. Oral cavity without thrush or pharyngitis. The neck is supple. No adenopathy. His lungs are fairly clear posteriorly this morning. Cardiac tones regular rate and rhythm. PICC line in good position, without evidence of inflammation. Abdomen soft and nontender. No skin rash. LABORATORIES: Include a white count down to 56,000, platelets 27,000. Note that he functionally has no neutrophils. Creatinine 0.49. ALT is 49. Interestingly, his HSV-I and 2 IgG serologies are completely negative. Fungitell and galactomannan still pending. Micro studies include a sputum which is basically normal johnathan with very little in the way of white cells. Stool multiplex PCR negative. Nasopharyngeal multiplex PCR negative. Urine had enterococcal is present, but no white cells and no symptoms. Blood cultures have grown Pseudomonas aeruginosa from the . IMAGING: Includes a chest, abdomen, and pelvis CT that was done on the and showed trace effusions and dependent changes in the lungs with some hepatic steatosis and splenomegaly, and some scattered free fluid within the abdominal cavity. IMPRESSION: This patient seems considerably improved, even just over yesterday. He now is sitting up, having just taken a shower, and really looks great. I failed to mention, but the tenderness in his left antecubital fossa has largely resolved, though there is still a palpable vein in that area presumably due to some sterile phlebitis. At this point, we have good control of his Pseudomonas bacteremia but will need some blood cultures since he is neutropenic to go ahead and prove that his Pseudomonas bacteremia has resolved. Because his herpes simplex virus antibodies are negative, we can stop his acyclovir. RECOMMENDATIONS: 1. Blood cultures x2 will be repeated, one through the PICC and one through the skin, to make sure that his bacteremia has resolved. 2. Will stop his acyclovir as he does not need prophylaxis as he is not seropositive. 3. Will continue to very closely follow this patient with you.
[2016-10-12] MEDS: Dexamethasone 10 mg/50 mL NS IV SCH ×2 (14:59)
--- NOTE | 2016-10-12 15:23 | PCM.PNMED ---
Subjective Date of Service Oct 12, 2016 Subjective Patient seen and examined. Patient is on day two of induction chemotherapy. Patient is being treated with cytarabine and ivadrubicin. Patient has no complaints or any problems associated with new on set chemo/. Exam Vital Signs Vital Sign - Last Date Time Temp Pulse Resp B/P Pulse Ox O2 Delivery O2 Flow Rate FiO2 10/12/16 15:06 36.4 69 18 147/72 96 Room Air 10/09/16 18:03 1.00 Intake and Output 10/11/16 10/11/16 10/12/16 Cumulative From/Thru 15:00 23:00 07:00 10/08/16 14:58 - 10/12/16 05:43 Intake Total 4108 ml 1765 ml 3823 ml 67975 ml Output Total 2200 ml 2000 ml 2600 ml 05809 ml Balance 1908 ml -235 ml 1223 ml 7966 ml Intake Oral 2400 ml 1040 ml 1950 ml 9290 ml IV Total 1708 ml 100 ml 1873 ml 88856 ml Packed Cells 625 ml 1191 ml Output Urine Total 2200 ml 2000 ml 2600 ml 95044 ml # Voids 5 5 # Bowel Movements 0 0 0 2 Exam Exam General: No acute distress, well-developed, well-nourished, appropriately interactive HEENT: Normocephalic, atraumatic. External ears without defect. Pupils equal, round, and reactive to light and accommodation. Moist conjunctivae. Oropharynx with moist mucosa. Neck: Supple with full range of motion.No lymphadenopathy Cardiovascular: Regular rate and rhythm with no murmurs, rubs, or gallops appreciated Pulmonary: Clear to auscultation bilaterally with no crackles, wheezes, or rhonchi. Normal respiratory effort with no use of accessory muscles. Abdomen: Bowel tones present. Soft, nontender, nondistended. Ext: No swelling, no edema, Neuro: No focal neurological deficits Lab and Diagnostics Result Diagram: 10/12/16 0500 10/12/16 0500 X-Rays, CTs and MRIs CT Chest abdomen pelvis with contrast IMPRESSION: 1. Mild dependent changes and trace effusions within the lungs bilaterally. 2. Hepatic steatosis. 3. Mild splenomegaly. 4. Minimal to mild scattered fluid within the abdomen and pelvis as above. 5. Unchanged hypodensity within the pancreatic uncinate process/head. Dictated by: Fernanda Gaines M.D. on 10/08/2016 at 18:06 CT brain without contrast IMPRESSION: 1. No acute intracranial process. 2. Mild to moderate atrophy and chronic microvascular ischemic changes. 3. Right maxillary sinus disease. Dictated by: Fernanda Gaines M.D. on 10/08/2016 at 18:00 Cardiac Echo Impressions Echocardiogram Report Interpretation Summary The left ventricle is normal in size. Left ventricular systolic function is normal without focal wall motion abnormalities. The ejection fraction is estimated to be 60-65%. The right ventricle is normal in size and function. The right ventricular systolic pressure is estimated at 44 mmHg assuming a right atrial pressure of 3 mm Hg. The left atrium is moderately dilated. Right atrial size is normal. There is no significant valvular heart disease. The aortic root is normal size. There is a trivial pericardial effusion noted. There are no echocardiographic indications of cardiac tamponade. There is a moderate left-sided pleural effusion. Assessment & Plan 71-year-old man presented after 2 week history of sinus congestion/URI symptoms since 08/22/2016, no better with Augmentin and doxycycline which was stopped due to upset GI, then developed current 2 week history of abdominal discomfort, cramping diffusely, bloating, vomiting not blood, diarrhea/hiccoughs lasting 1+ hours, then developed fever for one day associated w/ confusion per . 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, present on admission, active -- Pending flow cytometry/smear pathology- bone marrow biopsy done yesterday -- Continue bicarbonate drip with allopurinol -- will obtain repeat BMP in the pm to monitor for electrolyte imbalances -- IVF / PRN O2 / monitor hemorrhaging-hypoxia microcirculation -- Pt had an appropriate response to the 2 units of PRBCs yesterday #Pseudohyponatremia due to elevated WBCs, [id number] on admission, resolving -- Serum osmolality was low at 247 -- prior hx of mild hyponatremia had been likely due to HCTZ at that time though -- NS/bicarb gtt when 150 mL/h -- resolving #Bacteremia, gram-negative variable rods, present on admission, active -- 2 blood culture bottles are growing gram variable rods. -- Patient on meropenem and vancomycin IV, day 2, continue await cultures -- Currently seen to be p. aerginosa. Meropenem is the appropriate drug #Electrolyte imbalances -- 1.4 on admission, 2 g magnesium sulfate given IV which increased magnesium level to 2.6. -- Recheck magnesium in the morning -- will repeat bmp in the evening #Thrush, present on admission, improving -- No sign of white exudate on physical exam today however patient has been using nystatin swish and swallow. -- Risk of thrush with antibiotics will increase therefore continue nystatin for a few days. Chronic issues known prior to admission, present on admission Hypertension Diverticulitis/acid reflux Arthritis/laminectomy --- Continue diltiazem and hold naproxen Diet general DVT prophylaxis scd ambulate, thrombocytopenia and mild elevated INR Code full Disposition: Pending hospital course GI Prophylaxis: Proton Pump Inhibitor VTE Prophylaxis: Other (thrombocytopenic) VTE Mechanical Devices: Intermittant Pneumatic CD Resuscitation Status: CPR: Attempt Resuscitation Wilfrido Ashton MD Oct 12, 2016 15:23
--- NOTE | 2016-10-12 15:54 | NUR ---
Social Work-continued d/c planning: Data:EMR Reviewed. Pt is on day 4 of hospitalization for new acute leukemia per H&P. Pt is not medically stable, anticipate several more days. Pt resides at home with his where he remains independent with ADLs. Pt has started chemotherapy treatment in [facility]. SW to follow up with pt regarding HH services. SW will continue to follow. Assessment:pt who is independent at baseline. Plan:Pt to discharge home when medically stable. R/O HH services. SW will continue to follow JAZMIN Elizabeth
--- NOTE | 2016-10-12 19:31 | NUR ---
Activity pt up in chair most the afternoon, washed up, walked a loop and a half in chew. Chemo running all shift, No complaints of nausea, Pt stated he was getting a little sore on his lips but the ChapStick was helping. Pt has some mile edema in legs encouraged elevation and use of SCDs
[2016-10-12] MEDS: LORazepam 0.5 mg Tablet PO PRN (22:15)
[2016-10-13] VITALS (12 sets, daily range): BP systolic 141–176; BP diastolic 68–85; PULSE 63–82; RESP 16–18; O2SAT 92–100
[2016-10-13] MEDS: SODIUM CHLORIDE 0.9% IV SCH ×5 (00:11→19:53)
[2016-10-13] MEDS: IDARUBICIN IV SCH (00:11)
[2016-10-13] MEDS: CYTARABINE IV SCH (01:09)
--- NOTE | 2016-10-13 04:27 | NUR ---
Chemo tolerance / fluid balance Pt tolerating chemo very well, denies GI upset. PICC line developed small amount of bleeding at insertion site, continues to flush and draw with ease. Education regarding mouth sores, NS rinses set up and encouraged. Pt continues to urinate large volume, lungs sounding more congested this am. Leg edema decreased in night, penile and scrotal swelling unimproved. Hourly rounding ongoing.
[2016-10-13 04:53] LABS: EOSINOPHILS % (AUTO) 0 % (0-5); Mean Corpuscular Hemoglobin 30.3 pg (27.0-35.0)
[2016-10-13 05:16] LABS: BASOPHILS % (AUTO) 0 % (0-3); MONOCYTES % (AUTO) 3 % (4-12); NEUTROPHILS % (AUTO) 1 % (40-74); Platelet Count 15 bil/L (150-400)
[2016-10-13 05:40] LABS: Magnesium 2.3 mg/dL (1.6-2.6); Phosphorus 3.5 mg/dL (2.5-4.9)
[2016-10-13] MEDS: SODIUM BICARB IV SCH ×3 (05:51→19:53)
[2016-10-13] MEDS: Meropenem Inj 2,000 MG in 0.9% Sodium Chloride 100 ML IV SCH ×3 (06:23→22:02)
[2016-10-13] MEDS: Pantoprazole 20 mg ER24 Tablet PO SCH ×2 (07:18→20:20)
[2016-10-13] MEDS: Diltiazem CD 120 mg ER24 Capsule PO SCH (07:18)
--- NOTE | 2016-10-13 08:20 | PROG NOTE ---
[address] [address] PROGRESS NOTE PATIENT: JEFF AMEZCUA : 1945 MR#: [id number] ADMIT: 10/08/2016 JOB ID: [id number] DATE: 10/13/2016 SUBJECTIVE: The patient is a 71-year-old gentleman hospitalized for induction chemotherapy for newly diagnosed acute myelogenous leukemia. He is on day two SIMÓN-C, which will be finished late this evening and due for day three idarubicin later today. No nausea or vomiting. No fevers. He is sleeping well. He still has some dyspnea with minimal exertion. He notes swelling, including in his penis. He denies any atypical bleeding or bruising. OBJECTIVE: Vitals: T 36.5, P 65, R 18, BP 163/82. O2 saturation 92% on room air. Weight 95.2 kg (baseline 91 kg). HEENT: Conjunctivae slightly pale. Mucous membranes moist. Nodes: No adenopathy in the neck or axilla. Chest: Slightly decreased at the bases. Cardiac examination: Regular rate and rhythm with normal S1, S2. Abdomen: Soft, nontender. Normoactive bowel tones. No splenomegaly or masses. Extremities: No edema. 2+ distal pulses. No calf tenderness. LABORATORIES: WBC 37.4 with 92% blasts, hemoglobin 10.1, hematocrit 30.3%, platelets 15,000. Sodium 132, potassium 5.3, BUN 17, creatinine 0.49, glucose 143, calcium 7.6, albumin 3.2. AST 50, ALT 65, alkaline phosphatase 81. Total bilirubin 0.9. Uric acid 4.7. ASSESSMENT AND PLAN: De josé miguel acute myelogenous leukemia: The patient presented with a white blood cell count over 200,000 with about 90% blasts. He is on induction chemotherapy, currently bag 2 cytarabine 100 mg/m2 per day for seven days plus due for day three idarubicin 12 mg/m2 IV push later today. Again, this is a seven day course of therapy. He may have some tumor lysis, manifested by falling white cell count, and rising potassium. As he is fluid overload, we will diurese with Lasix, which will not only remove excess fluid, but also help to correct his potassium excess. Continue to monitor closely. Blood pressure may be better controlled after diuresis as well. Decrease the rate of his bicarbonate drip to 75 cc/hour. No indication for red cell transfusion today, but with continued fall in platelets, transfuse 2 units irradiated platelets later today after premedication with Tylenol 650 mg by mouth and hydrocortisone 50 mg IV. Recent blood cultures from admission were positive for Pseudomonas aeruginosa, and urine culture was positive for Enterococcus faecalis. He is on broad-spectrum antibiotic coverage with meropenem and posaconazole. Appreciate Infectious Disease input from Dr. Hackett. Continue to check daily CBC, differential, platelets, CMP, uric acid, phosphorus and magnesium.
[2016-10-13] MEDS ORDERED: Hydrocortisone 50 mg/mL 2 mL Inj IV ONE (08:45)
[2016-10-13] MEDS ORDERED: Furosemide 10 mg/mL 4 mL Inj IVPUSH ONE (08:45)
[2016-10-13] MEDS: Sodium-Potassium Phosphorus Packet PO SCH ×4 (09:09→22:01)
[2016-10-13] MEDS: Nystatin 100,000 Unit/mL 5 mL Suspension PO SCH ×4 (09:09→22:01)
[2016-10-13] MEDS: POSACONAZOLE PO SCH ×3 (09:10→17:45)
--- NOTE | 2016-10-13 11:16 | PATH ---
SURGICAL PATHOLOGY Attending Physician:Sai Balbuena M.D. ( CASE STATUS: Signed Out PATIENT NAME: JEFF AMEZCUA PID: [id number] : 1945 DATE COLLECTED:10/11/2016 16:20 SPECIMEN: 1: Bone Marrow, Aspiration 2: Bone Marrow, Biopsy 3: Bone Marrow, peripheral smear CLINICAL HISTORY: AML FINAL DIAGNOSIS: Peripheral Blood: Marked leukocytosis with 95% blasts immunophenotypically characterized by flow cytometry as abnormal myeloid blasts. Normocytic anemia with rare nucleated RBC. Markedly decreased platelets. Bone Marrow, Aspiration and Biopsy: Acute myeloid leukemia with immunophenotypic characteristics determined by flow cytometry to be consistent with acute myeloid leukemia with minimal monocytic differentiation. Uninvolved marrow consists of markedly decreased trilineage hematopoiesis without identifiable ringed sideroblasts. ICD10: C92.00 NOTE: The peripheral blood and bone marrow morphology together with the accompanying flow cytometric analysis are diagnostic of acute myeloid leukemia which by immunophenotype expresses minimal monocytic differentiation. Further characterization of the AML subtype will require correlation with cytogenetics and the AML FISH panel. In addition, certain molecular markers may be helpful in further characterization with regard to prognosis. The diagnosis of AML was given to Dr. Balbuena by Dr. Santizo on 10/12/2016. Flow Interpretation: ([id number]) Bone marrow aspirate: Abnormal myeloid blasts comprising about 90% of the total marrow leukocytes analyzed consistent with acute myeloid leukemia; dyssynchronous granulocyte maturation; no identifiable abnormal lymphocyte population; see Comment. Flow Comment: Flow cytometric analysis of the bone marrow aspirate following lysis of erythrocytes shows a CD45 versus sidescatter cytogram which allows for separation of the total marrow leukocytes into the following mcgee: blast (94%), lymphocyte (2%), monocyte (1%) and mature granulocyte (3%). Within the blast gate are phenotypically abnormal myeloid blasts expressing uniform CD117, CD38(dim), CD34(dim), HLA-DR(dim) CD33 on a subset, CD4(dim), CD11c and CD64(dim). The blasts are negative for CD13, CD5, CD7 and CD56 as well as other lymphoid markers except for the dim CD4. These findings are diagnostic of acute myeloid leukemia. Mature granulocytes exhibit diminished expression of CD10 with dyssynchronous maturation as reflected by the marked leftward skewing of the CD13 versus CD16 plot. To summarize, the flow cytometric analysis demonstrates a marked increase in phenotypically abnormal myeloid blasts with low level expression of some monocytic markers. The abnormal myeloid blasts approach 90% of the total marrow cells analyzed based upon the uniform expression of CD117. The immunophenotype of the abnormal blasts is not typical of acute promyelocytic leukemia. Further characterization of the acute myeloid leukemia requires correlation of the flow cytometry results with the bone marrow morphology, cytogenetics and the AML FISH panel which are pending. According to Dr. Balbuena's clinical note, FISH performed in [place] was negative for a t(15;17) translocation. A diagnosis of acute myeloid leukemia, non-APL type, was conveyed to Dr. Balbuena by Dr. Santizo on 10/12/2016. No abnormal lymphocyte population was detected. GROSS DESCRIPTION: Received 20 Bone Marrow Aspiration Slides 2 Peripheral Blood Smears 1 Biopsy Core in Formalin 1 Aspirate Clot in Formalin 1 Lavender Top Tube 2 Green Top Tubes Accompanied with the specimen is a requisition for AML Profile, FISH. MICRO DESCRIPTION: Peripheral Blood: Review of the peripheral smear shows a marked leukocytosis with mostly blasts which are estimated at comprising about 90-95% of the total leukocytes. The blasts have a high N/C ratio with occasional nuclear indentations and rare binucleated forms. Sparse granularity is identified in a subset of the blasts. No Allen rods are identified. Few maturing granulocytes and rare lymphocytes are identified. Nucleated RBC are present, and platelets are markedly decreased. Bone Marrow: Sections from the marrow clot show only clotted blood. However, the bone core biopsy samples marrow in which the hematopoietic cellularity averages 80-90%. About 80-90% of the marrow cellularity is comprised of immature cells consistent with blasts which comprise about 85% of the total marrow cellularity. Megakaryocytes are identified, but these are markedly reduced as are the normal maturing erythroid colonies. An iron stain performed on a marrow clot section is noncontributory due to the absence of intact marrow particles for examination. An iron stain performed on a hemodilute aspirate smear shows no ringed sideroblasts. A outside sales account representative cell differential count performed on a bone core touch prep in which the marrow cellularity is enriched compared to that on the prepared aspirate smears, shows 5% maturing myeloid, 11%, erythroid, 3% lymphocytes and 81% blasts. ICD-9 CODES: CPT CODES: 1: 22051 2: 61693 3: 07669 PROCEDURE/ADDENDA: Addendum SPI Addendum Diagnosis Evaluate for PNH Viability: 95% (7AAD exclusion) Interpretation: Peripheral Blood: No evidence of paroxysmal nocturnal hemoglobinuria (PNH). TEST: Chromosome, Leukemia/Lymphoma Cytogentic Result: 46.XY[20] Interpretation: Normal Male Karyotype. TEST: AML FISH Panel FISH Result: Normal AML Panel Interpretation: The FISH study for the most common AML related chromosome changes was normal. DNA probes specific for oncogenes or chromosome regions at 5q33, 7q31, WRSG1E2/RUNX1, KMT2A, (MLL), PML/ASHLEY, and CBFB showed normal hybridization signals in all interphase cells examined. Addendum Comment Please see [facility] report [id number] for complete details. Please see LS report [phone] for complete details. Electronically Signed Out Jennifer Vazquez M.D.,[facility] Electronically Signed Out Nasim Santizo MD, PhD [facility] [address], [place] [address] Technical component performed at [facility], [address], [place], [address]
--- NOTE | 2016-10-13 11:38 | PROG NOTE ---
[address] [address] PROGRESS NOTE PATIENT: JEFF AMEZCUA : 1945 MR#: [id number] ADMIT: 10/08/2016 JOB ID: [id number] DATE: 10/13/2016 INFECTIOUS DISEASE FOLLOWUP NOTE: REASON FOR FOLLOWUP: Pseudomonas bacteremia in the setting of acute leukemia, undergoing induction chemotherapy. INTERVAL HISTORY: The patient reports that he was beginning to accumulate some edema in his lower extremities but the Lasix he has been given really helped. He has had no additional fevers, chills, or sweats. He has a dry cough but he is not short of breath. No chest pain, nausea, vomiting, or diarrhea. No dysuria. He is able to eat and drink without difficulty. PHYSICAL EXAMINATION: Reveals an afebrile gentleman. Temperature 36.2, pulse 64, respiratory rate 18, blood pressure 149/72. He is saturating well on room air. Mental status is clear. Oral cavity without pharyngitis. Neck without adenopathy. His PICC line in his right upper extremity appears benign, as does a peripheral IV in the same arm. His lungs are clear. Cardiac tones: Regular rate and rhythm without murmur. Abdomen soft and nontender. He does not have a Gill catheter. His legs are without significant edema this morning. LABORATORIES: Include a white count, which has dropped to 37,000, a platelet count which has dropped to 15, and he is getting platelets now. Creatinine of 0.49. His LFT are basically normal, except for a slightly increased ALT to 65. Albumin 3.2. Fungitell and galactomannan are still pending. Herpes titers were negative. Followup blood cultures are negative at this point. The initial blood cultures, of course, grew pseudomonas. IMPRESSION: This patient seems to be doing quite well, as he proceeds through the induction treatment of his acute myeloid leukemia. He is currently on meropenem and posaconazole, with meropenem aimed at the pseudomonas that was found in his blood and the posaconazole for prophylaxis of fungal infections. RECOMMENDATIONS: 1. Will continue with meropenem for probably at least a two week course depending on recovery of his white cells. 2. May continue on posaconazole for the long term care phlebotomist until we have gotten through this period of induction and consolidation chemotherapy. 3. It would be worthwhile to check a posaconazole level next week to make certain we have therapeutic posaconazole concentration.
--- NOTE | 2016-10-13 12:29 | PCM.PNMED ---
Subjective Date of Service Oct 13, 2016 Subjective Patient seen and examined this morning, patient is in good spirits. Patient was advised that he is not to have anyone come into his room without wearing a mask. Patient was seen to have low platelets this morning. Patient has not had any bleeding episodes, the ones he has had in the past few days have all been self limiting. Patient is otherwise doing well. Exam Vital Signs Vital Sign - Last Date Time Temp Pulse Resp B/P Pulse Ox O2 Delivery O2 Flow Rate FiO2 10/13/16 11:39 36.2 64 17 141/75 10/13/16 09:18 98 Room Air 10/09/16 18:03 1.00 Intake and Output 10/12/16 10/12/16 10/13/16 Cumulative From/Thru 15:00 23:00 07:00 10/08/16 14:58 - 10/13/16 06:24 Intake Total 3755 ml 3483 ml 70546 ml Output Total 2350 ml 2650 ml 44102 ml Balance 1405 ml 833 ml 24565 ml Intake Oral 1240 ml 1600 ml 71450 ml IV Total 2515 ml 1883 ml 51739 ml Packed Cells 1191 ml Output Urine Total 2350 ml 2650 ml 53615 ml # Voids 5 # Bowel Movements 0 0 2 Exam General: No acute distress, well-developed, well-nourished, appropriately interactive HEENT: Normocephalic, atraumatic. External ears without defect. Pupils equal, round, and reactive to light and accommodation. Moist conjunctivae. Oropharynx with moist mucosa.Chapped lips with no evidence of bleeding Neck: Supple with full range of motion.No lymphadenopathy Cardiovascular: Regular rate and rhythm with no murmurs, rubs, or gallops appreciated Pulmonary: Clear to auscultation bilaterally some scattered ronchi. Good air exchange. Normal respiratory effort with no use of accessory muscles. Abdomen: Bowel tones present. Soft, nontender, nondistended. Ext: No edema or loss of motor/.sensory function Lab and Diagnostics Result Diagram: 10/13/1644210/13/16442 X-Rays, CTs and MRIs CT Chest abdomen pelvis with contrast IMPRESSION: 1. Mild dependent changes and trace effusions within the lungs bilaterally. 2. Hepatic steatosis. 3. Mild splenomegaly. 4. Minimal to mild scattered fluid within the abdomen and pelvis as above. 5. Unchanged hypodensity within the pancreatic uncinate process/head. Dictated by: Fernanda Gaines M.D. on 10/08/2016 at 18:06 CT brain without contrast IMPRESSION: 1. No acute intracranial process. 2. Mild to moderate atrophy and chronic microvascular ischemic changes. 3. Right maxillary sinus disease. Dictated by: Fernanda Gaines M.D. on 10/08/2016 at 18:00 Cardiac Echo Impressions Echocardiogram Report Interpretation Summary The left ventricle is normal in size. Left ventricular systolic function is normal without focal wall motion abnormalities. The ejection fraction is estimated to be 60-65%. The right ventricle is normal in size and function. The right ventricular systolic pressure is estimated at 44 mmHg assuming a right atrial pressure of 3 mm Hg. The left atrium is moderately dilated. Right atrial size is normal. There is no significant valvular heart disease. The aortic root is normal size. There is a trivial pericardial effusion noted. There are no echocardiographic indications of cardiac tamponade. There is a moderate left-sided pleural effusion. Assessment & Plan 71-year-old man presented after 2 week history of sinus congestion/URI symptoms since 08/22/2016, no better with Augmentin and doxycycline which was stopped due to upset GI, then developed current 2 week history of abdominal discomfort, cramping diffusely, bloating, vomiting not blood, diarrhea/hiccoughs lasting 1+ hours, then developed fever for one day associated w/ confusion per . 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, present on admission, active -- Awaiting flow cytometery -- Continue bicarbonate drip with allopurinol @ 75 ml/hr -- will obtain repeat BMP in the pm to monitor for electrolyte imbalances -- IVF / PRN O2 / monitor hemorrhaging-hypoxia microcirculation -- Will continue to trend cbc for platelets and hgb #Pseudohyponatremia due to elevated WBCs, [id number] on admission, resolving -- Serum osmolality was low at 247 -- prior hx of mild hyponatremia had been likely due to HCTZ at that time though -- NS/bicarb gtt when 150 mL/h -- resolving #Bacteremia, gram-negative variable rods, present on admission, active -- 2 blood culture bottles are growing gram variable rods. -- Patient on meropenem and vancomycin IV, day 3 -- Currently seen to be p. aerginosa. Meropenem is the appropriate drug #Electrolyte imbalances -- 1.4 on admission, 2 g magnesium sulfate given IV which increased magnesium level to 2.6. -- Recheck magnesium in the morning -- will repeat bmp in the evening #Thrush, present on admission, improving -- No sign of white exudate on physical exam today however patient has been using nystatin swish and swallow. -- Risk of thrush with antibiotics will increase therefore continue nystatin for a few days. -- will start Posaconazole 200 mg at a suspension every 8 hours Chronic issues known prior to admission, present on admission Hypertension Diverticulitis/acid reflux Arthritis/laminectomy --- Continue diltiazem and hold naproxen Diet general DVT prophylaxis scd ambulate, thrombocytopenia and mild elevated INR Code full Disposition: Pending hospital course GI Prophylaxis: Proton Pump Inhibitor VTE Prophylaxis: Other (thrombocytopenic) VTE Mechanical Devices: Intermittant Pneumatic CD Resuscitation Status: CPR: Attempt Resuscitation Wilfrido Ashton MD Oct 13, 2016 12:28
[2016-10-13] MEDS ORDERED: 0.9% Sodium Chloride 250 ML ONE ×2 (12:45→21:41)
[2016-10-13] MEDS: Dexamethasone 10 mg/50 mL NS IV SCH ×2 (14:05)
--- NOTE | 2016-10-13 14:13 | NUR ---
Social Work-continued d/c planning: data:EMR Reviewed. Pt is on day 5 of hospitalization for new acute leukemia per h&P. Pt is not medically stable, anticipate at least 6 more days of chemotherapy. Pt is followed by Dr. Balbuena, oncology. SW followed up with pt and Rob at bedside, SW role explained. SW discussed HH with pt and , pt has history with HH, but pt and do not feel like they will need this at discharge. Pt has been up independent in his room.Pt's to provide transport home. SW provided phone number and plan on white board in room. No anticipated discharge needs. SW will continue to follow if needs arise. Assessment:Pt who is independent at baseline. Plan:Pt to discharge home with when medically stable via POV. No anticipated discharge needs. SW will continue to follow if needs arise. JAZMIN Elizabeth
--- NOTE | 2016-10-13 18:13 | NUR ---
edema/cough: Pt potassium elevated this am. Given Lasix and Kayexalate. Both of these were effective. Large amounts of urine, and bm x1. Pt has edema to lower legs and scrotal area. Both areas reduced with Lasix. Pt c/o bloating in stomach, and the changes in breathing associated with enlarged stomach. Pt had not had bm in 3 days prior. He also has developed a cough. Lungs do not sound "wet" and it seems to be more of a "bronchial" cough as described by patient. Continue to monitor.
[2016-10-13] MEDS: LORazepam 0.5 mg Tablet PO PRN (22:08)
[2016-10-14] VITALS (7 sets, daily range): BP systolic 146–183; BP diastolic 67–87; PULSE 68–79; RESP 16–17; O2SAT 94–98
[2016-10-14] MEDS: SODIUM CHLORIDE 0.9% IV SCH ×4 (01:15→23:51)
[2016-10-14] MEDS: IDARUBICIN IV SCH (01:15)
[2016-10-14] MEDS ORDERED: 0.9% Sodium Chloride 250 ML ONE (01:47)
[2016-10-14] MEDS: CYTARABINE IV SCH ×2 (02:04→23:51)
--- NOTE | 2016-10-14 03:20 | NUR ---
Chemo/BM Chemo initiated at 0115 for Idarubicin and 0204 for Cytarabine. Double check performed with second chemo RN. Blood return verified prior to both administrations. Patient continues to tolerate well. No s/sx of adverse reaction. Received Kayexalate earlier this evening. Continues to have frequent BM's. States abdominal discomfort/distention and SOB are resolving with each BM. Will continue Q1hour rounding.
[2016-10-14] MEDS: Meropenem Inj 2,000 MG in 0.9% Sodium Chloride 100 ML IV SCH ×2 (05:14→17:29)
[2016-10-14 05:54] LABS: BASOPHILS % (AUTO) 0 % (0-3); EOSINOPHILS % (AUTO) 0 % (0-5); MONOCYTES % (AUTO) 4 % (4-12); Mean Corpuscular Hemoglobin 30.1 pg (27.0-35.0); Mean Corpuscular Volume 90.4 fL (81-100); NEUTROPHILS % (AUTO) 0 % (40-74)
[2016-10-14 05:55] LABS: Platelet Count 30 bil/L (150-400)
[2016-10-14 05:58] LABS: Magnesium 2.1 mg/dL (1.6-2.6); Phosphorus 4.2 mg/dL (2.5-4.9)
[2016-10-14] MEDS: SODIUM BICARB IV SCH (06:22)
[2016-10-14] MEDS ORDERED: Zinc Oxide/Petrolatum White 57 Gm Ointment TOPICAL PRN (08:15)
--- NOTE | 2016-10-14 08:22 | PROG NOTE ---
[address] [address] PROGRESS NOTE PATIENT: JEFF AMEZCUA : 1945 MR#: [id number] ADMIT: 10/08/2016 JOB ID: [id number] DATE: 10/14/2016 SUBJECTIVE: The patient is a 71-year-old gentleman receiving induction chemotherapy for newly diagnosed acute myelogenous leukemia. Later today he will begin a day for SIMÓN-C, after completing three days of idarubicin on Tuesday, Tuesday and Tuesday. His main concern is swelling, up to and including his scrotum. No shortness of breath or chest pain. No fevers. No nausea or vomiting. No atypical bleeding or bruising. OBJECTIVE: Vitals: T 36.7, P 73, R 17, BP 183/81. O2 saturation 95% on room air. HEENT: Conjunctivae slightly pale. Mucous membranes moist. No oral lesions. Nodes: No adenopathy in the neck or axilla. Chest: Clear. Cardiac examination: Regular rate and rhythm with normal S1, S2. Abdomen: Soft, nontender, with normoactive bowel tones. No splenomegaly or masses. Extremities: 2+ bilateral lower extremity edema. 1+ distal pulses. No calf tenderness. LABORATORIES: WBC 11.0 with 83% blasts, 13% lymphocytes, hemoglobin 9.4, hematocrit 28.2%, platelets 30,000. Sodium 133, potassium 4.4, BUN 21, creatinine 0.46, glucose 127. AST 57, ALT 87, alkaline phosphatase 77. ASSESSMENT AND PLAN: De josé miguel acute myelogenous leukemia: The patient presented with an initial white blood cell count over 200,000 with about 90% blasts. Pathology was negative for acute promyelocytic leukemia. Bone marrow aspirates showed marked leukocytosis with 95% blasts immunophenotypically characterized as abnormal myeloid blasts. Additional FISH testing is pending. He is on induction chemotherapy with SIMÓN-C and idarubicin. He completed all three days of idarubicin this week Tuesday through Tuesday. Day 4 SIMÓN-C 100 mg/m2 per day will begin later this evening. He is tolerating therapy with no acute complaints. He had some hyperkalemia yesterday, consistent with mild tumor lysis syndrome, which has been corrected with diuresis and Kayexalate. He is fluid overloaded, and fluid rate has been decreased and we added Lasix 40 mg IV daily for the next three days. Continue to monitor. His chemotherapy will be completed early next week. If he is doing well at that time with no signs of active infection, he could potentially be discharged home. However, initial cultures showed Pseudomonas aeruginosa in his blood and Enterococcus faecalis in his urine, so he remains on broad-spectrum antibiotic coverage.
--- NOTE | 2016-10-14 08:36 | PCM.PNMED ---
Subjective Date of Service Oct 14, 2016 Subjective Patient resting in bed and appears comfortable. is at bedside. Exam Vital Signs Vital Sign - Last Date Time Temp Pulse Resp B/P Pulse Ox O2 Delivery O2 Flow Rate FiO2 10/14/16 05:56 73 10/14/16 05:21 36.7 17 183/81 95 Room Air 10/09/16 18:03 1.00 Intake and Output 10/13/16 10/13/16 10/14/16 Cumulative From/Thru 15:00 23:00 07:00 10/08/16 14:58 - 10/14/16 05:46 Intake Total 750 ml 1120 ml 2689 ml 28804 ml Output Total 3650 ml 1300 ml 58309 ml Balance 750 ml -2530 ml 1389 ml 9813 ml Intake Oral 1120 ml 1400 ml 59208 ml IV Total 150 ml 1289 ml 13841 ml Packed Cells 1191 ml Platelets 600 ml 600 ml Output Urine Total 3650 ml 1300 ml 75113 ml # Voids 5 # Bowel Movements 3 5 Exam Constitutional: Older gentleman in no acute distress Head: Normocephalic atraumatic Mouth: No visible lesions noted Chest: Clear to auscultation Cor: Regular rate and rhythm S1-S2 without murmur Abdomen: Soft nontender bowel sounds present Extremities: No pedal edema Skin: No rashes Neuro: Alert and oriented 3, motor strength is intact bilaterally Lab and Diagnostics Laboratory Tests 72 Hours Test 10/12/16 05:00 10/12/16 17:27 10/13/16 04:43 10/13/16 13:15 White Blood Count 55.6th/mm3 (3.8-10.1) 37.4th/mm3 (3.8-10.1) Red Blood Count 3.64mil/mm3 (4.40-5.80) 3.33mil/mm3 (4.40-5.80) Hemoglobin 11.2g/dL (13.8-17.2) 10.1g/dL (13.8-17.2) Hematocrit 32.9% (41.0-50.0) 30.3% (41.0-50.0) Mean Corpuscular Volume 90.4fL (81-100) 91.0fL (81-100) Mean Corpuscular Hemoglobin 30.8pg (27.0-35.0) 30.3pg (27.0-35.0) Mean Corpuscular Hemoglobin Concent 34.0% (32.0-37.0) 33.3% (32.0-37.0) Red Cell Distribution Width 19.4% (12.3-15.4) 18.4% (12.3-15.4) Platelet Count 27bil/L (150-400) 15bil/L (150-400) Neutrophils (%) (Auto) 1% (40-74) 1% (40-74) Lymphocytes (%) (Auto) 4% (14-46) 4% (14-46) Monocytes (%) (Auto) 3% (4-12) 3% (4-12) Eosinophils (%) (Auto) 0% (0-5) 0% (0-5) Basophils (%) (Auto) 0% (0-3) 0% (0-3) Blast Cells % 92% (0-0) 92% (0-0) Hematology Comments Rbc Sodium Level 132mEq/L (134-144) 128mEq/L (134-144) 132mEq/L (134-144) Potassium Level 5.0mEq/L (3.5-5.2) 5.1mEq/L (3.5-5.2) 5.3mEq/L (3.5-5.2) 4.5mEq/L (3.5-5.2) Chloride Level 100mEq/L (97-108) 97mEq/L (97-108) 99mEq/L (97-108) Carbon Dioxide Level 22mmol/L (18-29) 19mmol/L (18-29) 22mmol/L (18-29) Blood Urea Nitrogen 13mg/dL (8-27) 17mg/dL (8-27) 17mg/dL (8-27) Creatinine 0.49mg/dL (0.76-1.27) 0.40mg/dL (0.76-1.27) 0.49mg/dL (0.76-1.27) Estimat Glomerular Filtration Rate 177mL/min (>59) 224mL/min (>59) 177mL/min (>59) Glucose Level 164mg/dL (60-99) 134mg/dL (60-99) 143mg/dL (60-99) Calcium Level 7.2mg/dL (8.5-10.1) 7.6mg/dL (8.5-10.1) 7.6mg/dL (8.5-10.1) Phosphorus Level 3.4mg/dL (2.5-4.9) 3.5mg/dL (2.5-4.9) Magnesium Level 2.2mg/dL (1.6-2.6) 2.3mg/dL (1.6-2.6) Total Bilirubin 0.8mg/dL (0.0-1.2) 0.8mg/dL (0.0-1.2) 0.9mg/dL (0.0-1.2) Aspartate Amino Transf (AST/SGOT) 47U/L (0-50) 47U/L (0-50) 50U/L (0-50) Alanine Aminotransferase (ALT/SGPT) 49U/L (0-44) 52U/L (0-44) 65U/L (0-44) Alkaline Phosphatase 89U/L (25-160) 82U/L (25-160) 81U/L (25-160) Total Protein 5.8g/dL (6.4-8.4) 5.6g/dL (6.4-8.4) 5.6g/dL (6.4-8.4) Albumin 3.1g/dL (3.4-5.0) 3.2g/dL (3.4-5.0) 3.2g/dL (3.4-5.0) Uric Acid 4.7mg/dL (2.6-7.2) Test 10/14/16 05:20 White Blood Count 11.0th/mm3 (3.8-10.1) Red Blood Count 3.12mil/mm3 (4.40-5.80) Hemoglobin 9.4g/dL (13.8-17.2) Hematocrit 28.2% (41.0-50.0) Mean Corpuscular Volume 90.4fL (81-100) Mean Corpuscular Hemoglobin 30.1pg (27.0-35.0) Mean Corpuscular Hemoglobin Concent 33.3% (32.0-37.0) Red Cell Distribution Width 17.4% (12.3-15.4) Platelet Count 30bil/L (150-400) Neutrophils (%) (Auto) 0% (40-74) Lymphocytes (%) (Auto) 13% (14-46) Monocytes (%) (Auto) 4% (4-12) Eosinophils (%) (Auto) 0% (0-5) Basophils (%) (Auto) 0% (0-3) Blast Cells % 83% (0-0) Sodium Level 133mEq/L (134-144) Potassium Level 4.4mEq/L (3.5-5.2) Chloride Level 99mEq/L (97-108) Carbon Dioxide Level 23mmol/L (18-29) Blood Urea Nitrogen 21mg/dL (8-27) Creatinine 0.46mg/dL (0.76-1.27) Estimat Glomerular Filtration Rate 191mL/min (>59) Glucose Level 127mg/dL (60-99) Uric Acid 6.2mg/dL (2.6-7.2) Calcium Level 7.8mg/dL (8.5-10.1) Phosphorus Level 4.2mg/dL (2.5-4.9) Magnesium Level 2.1mg/dL (1.6-2.6) Total Bilirubin 1.0mg/dL (0.0-1.2) Aspartate Amino Transf (AST/SGOT) 57U/L (0-50) Alanine Aminotransferase (ALT/SGPT) 87U/L (0-44) Alkaline Phosphatase 77U/L (25-160) Total Protein 5.7g/dL (6.4-8.4) Albumin 3.4g/dL (3.4-5.0) Result Diagram: 10/14/1651910/14/16519 X-Rays, CTs and MRIs CT Chest abdomen pelvis with contrast IMPRESSION: 1. Mild dependent changes and trace effusions within the lungs bilaterally. 2. Hepatic steatosis. 3. Mild splenomegaly. 4. Minimal to mild scattered fluid within the abdomen and pelvis as above. 5. Unchanged hypodensity within the pancreatic uncinate process/head. Dictated by: Fernanda Gaines M.D. on 10/08/2016 at 18:06 CT brain without contrast IMPRESSION: 1. No acute intracranial process. 2. Mild to moderate atrophy and chronic microvascular ischemic changes. 3. Right maxillary sinus disease. Dictated by: Fernanda Gaines M.D. on 10/08/2016 at 18:00 Cardiac Echo Impressions Echocardiogram Report Interpretation Summary The left ventricle is normal in size. Left ventricular systolic function is normal without focal wall motion abnormalities. The ejection fraction is estimated to be 60-65%. The right ventricle is normal in size and function. The right ventricular systolic pressure is estimated at 44 mmHg assuming a right atrial pressure of 3 mm Hg. The left atrium is moderately dilated. Right atrial size is normal. There is no significant valvular heart disease. The aortic root is normal size. There is a trivial pericardial effusion noted. There are no echocardiographic indications of cardiac tamponade. There is a moderate left-sided pleural effusion. Assessment & Plan 71-year-old man presented after 2 week history of sinus congestion/URI symptoms since 08/22/2016, no better with Augmentin and doxycycline which was stopped due to upset GI, then developed current 2 week history of abdominal discomfort, cramping diffusely, bloating, vomiting not blood, diarrhea/hiccoughs lasting 1+ hours, then developed fever for one day associated w/ confusion per . 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 Normocytic anemia with rare nucleated RBC. Markedly decreased platelets. Bone Marrow, Aspiration and Biopsy: Acute myeloid leukemia with immunophenotypic characteristics determined by flow cytometry to be consistent with acute myeloid leukemia with minimal monocytic differentiation. Uninvolved marrow consists of markedly decreased trilineage hematopoiesis without identifiable ringed sideroblasts. -- Continue bicarbonate drip with allopurinol @ 75 ml/hr -- will obtain repeat BMP in the pm to monitor for electrolyte imbalances -- IVF / PRN O2 / monitor hemorrhaging-hypoxia microcirculation -- Will continue to trend cbc for platelets and hgb #Pseudohyponatremia due to elevated WBCs, [id number] on admission, resolving -- Serum osmolality was low at 247 -- prior hx of mild hyponatremia had been likely due to HCTZ at that time though -- resolving #Bacteremia, gram-negative variable rods, present on admission, active -- 2 blood culture bottles are growing gram variable rods. -- Patient on meropenem and vancomycin IV, day 3 -- Currently seen to be p. aerginosa. Meropenem is the appropriate drug #Electrolyte imbalances -- 1.4 on admission, 2 g magnesium sulfate given IV which increased magnesium level to 2.6. -- Recheck magnesium in the morning -- will repeat bmp in the evening #Thrush, present on admission, improving -- No sign of white exudate on physical exam today however patient has been using nystatin swish and swallow. -- Risk of thrush with antibiotics will increase therefore continue nystatin for a few days. -- will start Posaconazole 200 mg at a suspension every 8 hours Chronic issues known prior to admission, present on admission Hypertension Diverticulitis/acid reflux Arthritis/laminectomy --- Continue diltiazem and hold naproxen Diet general DVT prophylaxis scd ambulate, thrombocytopenia and mild elevated INR Code full Disposition: Pending hospital course GI Prophylaxis: Proton Pump Inhibitor VTE Prophylaxis: Other (thrombocytopenic) VTE Mechanical Devices: Intermittant Pneumatic CD Resuscitation Status: CPR: Attempt Resuscitation Time spent 30 minutes Adali Nava MD Oct 14, 2016 08:35
[2016-10-14] MEDS: POSACONAZOLE PO SCH ×3 (08:54→17:29)
[2016-10-14] MEDS: Nystatin 100,000 Unit/mL 5 mL Suspension PO SCH ×4 (08:54→21:26)
[2016-10-14] MEDS: Sodium-Potassium Phosphorus Packet PO SCH ×4 (08:54→21:26)
[2016-10-14] MEDS: Pantoprazole 20 mg ER24 Tablet PO SCH ×2 (08:55→21:26)
[2016-10-14] MEDS: Diltiazem CD 120 mg ER24 Capsule PO SCH (08:55)
[2016-10-14] MEDS: Furosemide 10 mg/mL 4 mL Inj IVPUSH SCH (10:08)
--- NOTE | 2016-10-14 15:28 | PROG NOTE ---
[address] [address] PROGRESS NOTE PATIENT: JEFF AMEZCUA : 1945 MR#: [id number] ADMIT: 10/08/2016 JOB ID: [id number] DATE: 10/14/2016 INFECTIOUS DISEASE FOLLOW UP NOTE: REASON FOR FOLLOW UP: Pseudomonas bacteremia in the setting of acute leukemia undergoing induction chemotherapy. The patient continues to do remarkably well. Today, he is sitting up and watching TV. He states he has no headache, sore throat, fevers, chills, cough, shortness of breath, nausea, vomiting, diarrhea or dysuria. He has tolerated all his chemo and antibiotics without any problems whatsoever at this point. PHYSICAL EXAMINATION: Reveals an afebrile man. Temperature 36.6, pulse 76, respiratory rate 16, blood pressure 163/80, saturating well on room air. His oral cavity is without any evidence of pharyngitis. His mental status is sharp. His lungs are clear on both sides. Cardiac tones: Regular rate and rhythm with 2/6 murmur as was heard before. Abdomen soft and nontender. No skin rashes noted. No problems with his central venous access. LABORATORIES: Include a white count done to 11,000, platelet count 30,000. Creatinine 0.46. LFTs with increase in ALT to 87, AST is 57, alk phos 77. Galactomannan and Fungitell have come back negative. HSV 1 and 2 antibodies are negative. Follow up blood cultures are negative. Recall his initial blood cultures on the grew Pseudomonas but repeats done two days ago are negative. No new imaging has been done. IMPRESSION: This patient is doing remarkably well during his induction for AML. He is currently on meropenem for broad-spectrum coverage and obviously targeted therapy as well for his Pseudomonas bacteremia. In addition, he is on posaconazole as prophylaxis against antifungal infections. RECOMMENDATIONS: 1. Continue with the meropenem for a minimum of two week total course for treatment of his Pseudomonas infection. If he is still neutropenic with an ANC less than 500, I would probably be inclined just to continue the meropenem until his neutrophil count comes back up to 500 which may, of course, be as long as two or three weeks. 2. I would continue posaconazole until we have a clarity as to what is going on in terms of his leukemic treatment and if he is in remission and so on. 3. I would check a posaconazole level next week. 4. Note that I will be out of town for 10 days commencing tomorrow morning. I can be reached by E-mail but probably not by telephone. Do not hesitate to contact me though by the [facility] E-mail if you need to about this or any other case and I will be returning to work October 26.
[2016-10-14] MEDS: Dexamethasone 10 mg/50 mL NS IV SCH ×2 (15:59)
--- NOTE | 2016-10-14 19:05 | NUR ---
Chemo/BM Pt continued chemo drug cytarabine, rate increased to 14ml/hr per MD to have drug finished by midnight. Pt tolerating well and having no adverse effects. Pt continued with diarrhea this shift r/t kayexalate. Last does d/c'd. Pt tolerating meals and intake improving.
[2016-10-14] MEDS: LORazepam 0.5 mg Tablet PO PRN (21:26)
[2016-10-15] VITALS (8 sets, daily range): BP systolic 133–156; BP diastolic 68–79; PULSE 62–77; RESP 16–17; O2SAT 97–100
[2016-10-15] MEDS: Meropenem Inj 2,000 MG in 0.9% Sodium Chloride 100 ML IV SCH ×4 (00:36→22:40)
--- NOTE | 2016-10-15 01:37 | NUR ---
Chemo/Edema Cytarabine hung @ 2350. Blood return verified prior to administration. Double check performed with second chemo RN. No a/e noted, tolerating well. Denies SOB, GI upset is improving from prior Kayexalate doses on 10/13. Continues to have edema from BL feet up to abdomen. States it hasn't improved much since yesterday, on scheduled Lasix. Up to BR independently, gait steady. Will continue Q1hour rounding.
[2016-10-15 05:41] LABS: Magnesium 2.4 mg/dL (1.6-2.6); Phosphorus 4.1 mg/dL (2.5-4.9)
[2016-10-15] MEDS: Diltiazem CD 120 mg ER24 Capsule PO SCH (08:09)
[2016-10-15] MEDS: POSACONAZOLE PO SCH ×3 (08:09→18:05)
[2016-10-15] MEDS: Furosemide 10 mg/mL 4 mL Inj IVPUSH SCH ×2 (08:09→17:11)
[2016-10-15] MEDS: Pantoprazole 20 mg ER24 Tablet PO SCH ×2 (08:10→22:39)
[2016-10-15] MEDS: Sodium-Potassium Phosphorus Packet PO SCH ×4 (08:10→22:41)
[2016-10-15] MEDS: Nystatin 100,000 Unit/mL 5 mL Suspension PO SCH ×4 (08:10→22:40)
--- NOTE | 2016-10-15 09:20 | PCM.PNMED ---
Subjective Date of Service Oct 15, 2016 Subjective Patient is feeling a little bit better today as his bowel movements, diarrhea have slowed down. Has no other complaints. Exam Vital Signs Vital Sign - Last Date Time Temp Pulse Resp B/P Pulse Ox O2 Delivery O2 Flow Rate FiO2 10/15/16 07:52 64 10/15/16 04:54 36.4 17 156/76 97 Room Air 10/09/16 18:03 1.00 Intake and Output 10/14/16 10/14/16 10/15/16 Cumulative From/Thru 15:00 23:00 07:00 10/08/16 14:58 - 10/15/16 05:05 Intake Total 1076 ml 2799 ml 46391 ml Output Total 2000 ml 1700 ml 25631 ml Balance -924 ml 1099 ml 9988 ml Intake Oral 1076 ml 2000 ml 83035 ml IV Total 799 ml 71314 ml Packed Cells 1191 ml Platelets 600 ml Output Urine Total 2000 ml 1700 ml 22685 ml # Voids 5 # Bowel Movements 6 0 11 Exam Constitutional: Male who is in no acute distress Head, normocephalic atraumatic Chest: Clear to auscultation Cor: Regular rate and rhythm S1-S2 Abdomen: Soft nontender bowel sounds present Extremities: 1+ lower extremity pedal edema Skin: No rashes or erythematous areas Psych: Mood and affect are appropriate Neuro: Alert and oriented 3, motor strength is intact bilaterally Lab and Diagnostics Laboratory Tests 72 Hours Test 10/12/16 17:27 10/13/16 04:43 10/13/16 13:15 10/14/16 05:20 Sodium Level 128mEq/L (134-144) 132mEq/L (134-144) 133mEq/L (134-144) Potassium Level 5.1mEq/L (3.5-5.2) 5.3mEq/L (3.5-5.2) 4.5mEq/L (3.5-5.2) 4.4mEq/L (3.5-5.2) Chloride Level 97mEq/L (97-108) 99mEq/L (97-108) 99mEq/L (97-108) Carbon Dioxide Level 19mmol/L (18-29) 22mmol/L (18-29) 23mmol/L (18-29) Blood Urea Nitrogen 17mg/dL (8-27) 17mg/dL (8-27) 21mg/dL (8-27) Creatinine 0.40mg/dL (0.76-1.27) 0.49mg/dL (0.76-1.27) 0.46mg/dL (0.76-1.27) Estimat Glomerular Filtration Rate 224mL/min (>59) 177mL/min (>59) 191mL/min (>59) Glucose Level 134mg/dL (60-99) 143mg/dL (60-99) 127mg/dL (60-99) Calcium Level 7.6mg/dL (8.5-10.1) 7.6mg/dL (8.5-10.1) 7.8mg/dL (8.5-10.1) Total Bilirubin 0.8mg/dL (0.0-1.2) 0.9mg/dL (0.0-1.2) 1.0mg/dL (0.0-1.2) Aspartate Amino Transf (AST/SGOT) 47U/L (0-50) 50U/L (0-50) 57U/L (0-50) Alanine Aminotransferase (ALT/SGPT) 52U/L (0-44) 65U/L (0-44) 87U/L (0-44) Alkaline Phosphatase 82U/L (25-160) 81U/L (25-160) 77U/L (25-160) Total Protein 5.6g/dL (6.4-8.4) 5.6g/dL (6.4-8.4) 5.7g/dL (6.4-8.4) Albumin 3.2g/dL (3.4-5.0) 3.2g/dL (3.4-5.0) 3.4g/dL (3.4-5.0) White Blood Count 37.4th/mm3 (3.8-10.1) 11.0th/mm3 (3.8-10.1) Red Blood Count 3.33mil/mm3 (4.40-5.80) 3.12mil/mm3 (4.40-5.80) Hemoglobin 10.1g/dL (13.8-17.2) 9.4g/dL (13.8-17.2) Hematocrit 30.3% (41.0-50.0) 28.2% (41.0-50.0) Mean Corpuscular Volume 91.0fL (81-100) 90.4fL (81-100) Mean Corpuscular Hemoglobin 30.3pg (27.0-35.0) 30.1pg (27.0-35.0) Mean Corpuscular Hemoglobin Concent 33.3% (32.0-37.0) 33.3% (32.0-37.0) Red Cell Distribution Width 18.4% (12.3-15.4) 17.4% (12.3-15.4) Platelet Count 15bil/L (150-400) 30bil/L (150-400) Neutrophils (%) (Auto) 1% (40-74) 0% (40-74) Lymphocytes (%) (Auto) 4% (14-46) 13% (14-46) Monocytes (%) (Auto) 3% (4-12) 4% (4-12) Eosinophils (%) (Auto) 0% (0-5) 0% (0-5) Basophils (%) (Auto) 0% (0-3) 0% (0-3) Blast Cells % 92% (0-0) 83% (0-0) Uric Acid 4.7mg/dL (2.6-7.2) 6.2mg/dL (2.6-7.2) Phosphorus Level 3.5mg/dL (2.5-4.9) 4.2mg/dL (2.5-4.9) Magnesium Level 2.3mg/dL (1.6-2.6) 2.1mg/dL (1.6-2.6) Test 10/15/16 05:00 Sodium Level 133mEq/L (134-144) Potassium Level 5.2mEq/L (3.5-5.2) Chloride Level 99mEq/L (97-108) Carbon Dioxide Level 23mmol/L (18-29) Blood Urea Nitrogen 24mg/dL (8-27) Creatinine 0.43mg/dL (0.76-1.27) Estimat Glomerular Filtration Rate 206mL/min (>59) Glucose Level 127mg/dL (60-99) Uric Acid 5.9mg/dL (2.6-7.2) Calcium Level 8.1mg/dL (8.5-10.1) Phosphorus Level 4.1mg/dL (2.5-4.9) Magnesium Level 2.4mg/dL (1.6-2.6) Total Bilirubin 1.2mg/dL (0.0-1.2) Aspartate Amino Transf (AST/SGOT) 43U/L (0-50) Alanine Aminotransferase (ALT/SGPT) 86U/L (0-44) Alkaline Phosphatase 69U/L (25-160) Total Protein 5.4g/dL (6.4-8.4) Albumin 3.1g/dL (3.4-5.0) Result Diagram: 10/14/16 0520 10/15/16 0500 X-Rays, CTs and MRIs CT Chest abdomen pelvis with contrast IMPRESSION: 1. Mild dependent changes and trace effusions within the lungs bilaterally. 2. Hepatic steatosis. 3. Mild splenomegaly. 4. Minimal to mild scattered fluid within the abdomen and pelvis as above. 5. Unchanged hypodensity within the pancreatic uncinate process/head. Dictated by: Fernanda Gaines M.D. on 10/08/2016 at 18:06 CT brain without contrast IMPRESSION: 1. No acute intracranial process. 2. Mild to moderate atrophy and chronic microvascular ischemic changes. 3. Right maxillary sinus disease. Dictated by: Fernanda Gaines M.D. on 10/08/2016 at 18:00 Cardiac Echo Impressions Echocardiogram Report Interpretation Summary The left ventricle is normal in size. Left ventricular systolic function is normal without focal wall motion abnormalities. The ejection fraction is estimated to be 60-65%. The right ventricle is normal in size and function. The right ventricular systolic pressure is estimated at 44 mmHg assuming a right atrial pressure of 3 mm Hg. The left atrium is moderately dilated. Right atrial size is normal. There is no significant valvular heart disease. The aortic root is normal size. There is a trivial pericardial effusion noted. There are no echocardiographic indications of cardiac tamponade. There is a moderate left-sided pleural effusion. Assessment & Plan 71-year-old man presented after 2 week history of sinus congestion/URI symptoms since 08/22/2016, no better with Augmentin and doxycycline which was stopped due to upset GI, then developed current 2 week history of abdominal discomfort, cramping diffusely, bloating, vomiting not blood, diarrhea/hiccoughs lasting 1+ hours, then developed fever for one day associated w/ confusion per . 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 Normocytic anemia with rare nucleated RBC. Markedly decreased platelets. Bone Marrow, Aspiration and Biopsy: Acute myeloid leukemia with immunophenotypic characteristics determined by flow cytometry to be consistent with acute myeloid leukemia with minimal monocytic differentiation. Uninvolved marrow consists of markedly decreased trilineage hematopoiesis without identifiable ringed sideroblasts. -- Continue bicarbonate drip with allopurinol @ 75 ml/hr -- will obtain repeat BMP in the pm to monitor for electrolyte imbalances -- IVF / PRN O2 / monitor hemorrhaging-hypoxia microcirculation -- Will continue to trend cbc for platelets and hgb #Pseudohyponatremia due to elevated WBCs, [id number] on admission, resolving -- Serum osmolality was low at 247 -- prior hx of mild hyponatremia had been likely due to HCTZ at that time though -- resolving #Bacteremia, gram-negative variable rods, present on admission, active -- 2 blood culture bottles are growing gram variable rods. -- Patient on meropenem and vancomycin IV, day 3 -- Currently seen to be p. aerginosa. Meropenem is the appropriate drug #Electrolyte imbalances -- 1.4 on admission, 2 g magnesium sulfate given IV which increased magnesium level to 2.6. -- Recheck magnesium in the morning -- will repeat bmp in the evening #Thrush, present on admission, improving -- No sign of white exudate on physical exam today however patient has been using nystatin swish and swallow. -- Risk of thrush with antibiotics will increase therefore continue nystatin for a few days. -- will start Posaconazole 200 mg at a suspension every 8 hours # Lower extremity edema, acute, present on admission Go ahead and increase diuresis with Lasix 40 mg IV twice a day from daily as patient is still retaining fluid Chronic issues known prior to admission, present on admission Hypertension Diverticulitis/acid reflux Arthritis/laminectomy --- Continue diltiazem and hold naproxen Diet general DVT prophylaxis scd ambulate, thrombocytopenia and mild elevated INR Code full Disposition: Pending hospital course GI Prophylaxis: Proton Pump Inhibitor VTE Prophylaxis: Other (thrombocytopenic) VTE Mechanical Devices: Intermittant Pneumatic CD Resuscitation Status: CPR: Attempt Resuscitation Time spent 30 minutes Adali Nava MD Oct 15, 2016 09:20
[2016-10-15 13:04] LABS: Mean Corpuscular Hemoglobin 30.4 pg (27.0-35.0); Mean Corpuscular Volume 92.9 fL (81-100)
[2016-10-15 13:05] LABS: Platelet Count 22 bil/L (150-400)
[2016-10-15 13:07] LABS: BASOPHILS % (AUTO) 0 % (0-3); EOSINOPHILS % (AUTO) 0 % (0-5); MONOCYTES % (AUTO) 3 % (4-12); NEUTROPHILS % (AUTO) 2 % (40-74)
--- NOTE | 2016-10-15 13:40 | PROG NOTE ---
[address] [address] PROGRESS NOTE PATIENT: JEFF AMEZCUA : 1945 MR#: [id number] ADMIT: 10/08/2016 JOB ID: [id number] DATE: 10/15/2016 SUBJECTIVE: The patient is a 71-year-old gentleman undergoing induction chemotherapy for newly diagnosed acute myelogenous leukemia. He was admitted on October 08, 2016 with a total white count of over 200,000, primarily blasts. Subsequent bone marrow studies confirmed acute myelogenous leukemia and he is on induction chemotherapy with SIMNÓ-C, completing day four SIMÓN-C today and beginning day five. He has had swelling in his lower extremities up to and including his scrotum, for which he is being diuresed. No shortness of breath at this time. No bleeding or atypical bruising. No fevers. No nausea or vomiting. OBJECTIVE: Vitals: T 36.7, P 69, R 16, BP 150/72. O2 saturation 98% on room air. HEENT. Conjunctivae pale. Mucous membranes moist. No oral lesions. Nodes: No adenopathy in the neck or axilla. Chest: Clear throughout. Cardiac examination: Regular rate and rhythm with normal S1, S2. Abdomen: Soft, nontender, with normoactive bowel tones. No splenomegaly or masses. Extremities: 1-2+ bilateral lower extremity edema. 1+ distal pulses. No calf tenderness. LABORATORIES: WBC 4.9 with 81% blasts, hemoglobin 8.5, hematocrit 26.0, platelets 22. Sodium 133, potassium 5.2, BUN 24, creatinine 0.43, glucose 127, calcium 8.1, albumin 3.1. AST 43, ALT 86, alkaline phosphatase 69. Total bilirubin 1.2. Uric acid 5.9. ASSESSMENT AND PLAN: De josé miguel acute myelogenous leukemia: The patient presented with an initial white cell count over 200,000 with over 90% blasts. Pathology showed evidence of acute myelogenous leukemia, without evidence of acute promyelocytic translocation. He had 95% blasts immunophenotypically on bone marrow studies. He completed three days of idarubicin Tuesday through Tuesday and is now finishing day four SIMÓN-C 100 mg/m2 per day, beginning day five this evening. No unexpected toxicities. White cell count has fallen substantially. Our goal is a white cell count of 0.0 with complete eradication of his blasts. Recent hyperkalemia has been corrected. Continue to monitor. Continue diuresis as needed. Once chemotherapy is complete early next week, he potentially could be discharged home. However, if he develops significant fevers with active infection, then he would need to remain in hospital. Note that initial cultures showed Pseudomonas aeruginosa in his blood and Enterococcus faecalis in his urine, so he would need to remain on broad-spectrum antibiotics even as an outpatient, until confirmation that infection has cleared. MTDD
[2016-10-15] MEDS ORDERED: 0.9% Sodium Chloride 250 ML ONE (16:27)
[2016-10-15] MEDS: Dexamethasone 10 mg/50 mL NS IV SCH ×2 (16:28)
--- NOTE | 2016-10-15 19:38 | NUR ---
Activity Pt encouraged to ambulate frequently throughout shift Pt OOB w/ multiple times. Steady gait, no complaints of SOB or dizziness. Bed down and locked, call light w/in reach and used appropriately
[2016-10-15] MEDS: LORazepam 0.5 mg Tablet PO PRN (22:15)
[2016-10-15] MEDS: SODIUM CHLORIDE 0.9% IV SCH (23:52)
[2016-10-15] MEDS: CYTARABINE IV SCH (23:52)
[2016-10-16] VITALS (13 sets, daily range): BP systolic 124–169; BP diastolic 39–85; PULSE 58–76; RESP 16–18; O2SAT 95–100
--- NOTE | 2016-10-16 00:02 | NUR ---
Chemo VSS, afebrile, denies pain, nausea or SOB. Tele; Sinus 65. Mild situational anxiety and need for sleep as expressed by patient. PO Ativan given. Picc line patent with with brisk blood return in line. Pharmacist on floor for double check of Cytarabine - to infuse at 11.8 ml per hour for bag to be completed in 24 hr period. Dexamethasone given daily as pre-med. Chemo infusion started at midnight. Care on-going.
[2016-10-16 05:25] LABS: Magnesium 2.2 mg/dL (1.6-2.6); Phosphorus 3.9 mg/dL (2.5-4.9)
[2016-10-16 05:35] LABS: Mean Corpuscular Hemoglobin 30.6 pg (27.0-35.0); Mean Corpuscular Volume 87.1 fL (81-100)
[2016-10-16 05:38] LABS: BASOPHILS % (AUTO) 0 % (0-3); EOSINOPHILS % (AUTO) 0.5 % (0-5); MONOCYTES % (AUTO) 17.7 % (4-12); NEUTROPHILS % (AUTO) 0.9 % (40-74); Platelet Count 14 bil/L (150-400)
[2016-10-16] MEDS: Meropenem Inj 2,000 MG in 0.9% Sodium Chloride 100 ML IV SCH ×3 (06:47→20:59)
[2016-10-16] MEDS: Sodium-Potassium Phosphorus Packet PO SCH ×2 (08:30→13:00)
[2016-10-16] MEDS: POSACONAZOLE PO SCH ×3 (09:15→17:22)
[2016-10-16] MEDS: Nystatin 100,000 Unit/mL 5 mL Suspension PO SCH ×4 (09:17→21:11)
[2016-10-16] MEDS: Furosemide 10 mg/mL 4 mL Inj IVPUSH SCH ×2 (09:17→14:44)
[2016-10-16] MEDS: Diltiazem CD 120 mg ER24 Capsule PO SCH (09:17)
[2016-10-16] MEDS: Pantoprazole 20 mg ER24 Tablet PO SCH ×2 (09:18→20:58)
[2016-10-16] MEDS ORDERED: Hydrocortisone 50 mg/mL 2 mL Inj IV ONE (11:05)
[2016-10-16] MEDS ORDERED: 0.9% Sodium Chloride 100 ML ONE (12:02)
[2016-10-16] MEDS: Dexamethasone 10 mg/50 mL NS IV SCH ×2 (13:19)
--- NOTE | 2016-10-16 14:29 | PCM.PNMED ---
Subjective Date of Service Oct 16, 2016 Subjective Patient has no complaints. He did have a normal bowel movement today. He does notice maybe a little bit of a raspy voice no postnasal drainage. He has been afebrile. Exam Vital Signs Vital Sign - Last Date Time Temp Pulse Resp B/P Pulse Ox O2 Delivery O2 Flow Rate FiO2 10/16/16 14:07 36.8 65 16 124/39 100 10/16/16 08:17 Room Air Intake and Output 10/15/16 10/15/16 10/16/16 Cumulative From/Thru 14:59 22:59 06:59 10/08/16 14:58 - 10/16/16 06:00 Intake Total 1859 ml 1485 ml 83046 ml Output Total 4700 ml 3050 ml 14471 ml Balance -2841 ml -1565 ml 5582 ml Intake Oral 1436 ml 1200 ml 63972 ml IV Total 423 ml 285 ml 13044 ml Packed Cells 1191 ml Platelets 600 ml Output Urine Total 4700 ml 3050 ml 64417 ml # Voids 5 # Bowel Movements 0 0 11 Exam Constitutional: Male who is in no acute distress Head, normocephalic atraumatic Chest: Clear to auscultation Cor: Regular rate and rhythm S1-S2 Abdomen: Soft nontender bowel sounds present Extremities: 1+ lower extremity pedal edema Skin: No rashes or erythematous areas Psych: Mood and affect are appropriate Neuro: Alert and oriented 3, motor strength is intact bilaterally IVs and Medications Medications Reviewed: Medications were reviewed in detail Lab and Diagnostics Result Diagram: 10/16/1644410/16/16444 X-Rays, CTs and MRIs CT Chest abdomen pelvis with contrast IMPRESSION: 1. Mild dependent changes and trace effusions within the lungs bilaterally. 2. Hepatic steatosis. 3. Mild splenomegaly. 4. Minimal to mild scattered fluid within the abdomen and pelvis as above. 5. Unchanged hypodensity within the pancreatic uncinate process/head. Dictated by: Fernanda Gaines M.D. on 10/08/2016 at 18:06 CT brain without contrast IMPRESSION: 1. No acute intracranial process. 2. Mild to moderate atrophy and chronic microvascular ischemic changes. 3. Right maxillary sinus disease. Dictated by: Fernanda Gaines M.D. on 10/08/2016 at 18:00 Cardiac Echo Impressions Echocardiogram Report Interpretation Summary The left ventricle is normal in size. Left ventricular systolic function is normal without focal wall motion abnormalities. The ejection fraction is estimated to be 60-65%. The right ventricle is normal in size and function. The right ventricular systolic pressure is estimated at 44 mmHg assuming a right atrial pressure of 3 mm Hg. The left atrium is moderately dilated. Right atrial size is normal. There is no significant valvular heart disease. The aortic root is normal size. There is a trivial pericardial effusion noted. There are no echocardiographic indications of cardiac tamponade. There is a moderate left-sided pleural effusion. Assessment & Plan 71-year-old man presented after 2 week history of sinus congestion/URI symptoms since 08/22/2016, no better with Augmentin and doxycycline which was stopped due to upset GI, then developed current 2 week history of abdominal discomfort, cramping diffusely, bloating, vomiting not blood, diarrhea/hiccoughs lasting 1+ hours, then developed fever for one day associated w/ confusion per . 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 Normocytic anemia with rare nucleated RBC. Markedly decreased platelets. Bone Marrow, Aspiration and Biopsy: Acute myeloid leukemia with immunophenotypic characteristics determined by flow cytometry to be consistent with acute myeloid leukemia with minimal monocytic differentiation. Uninvolved marrow consists of markedly decreased trilineage hematopoiesis without identifiable ringed sideroblasts. -- Continue bicarbonate drip with allopurinol @ 75 ml/hr -- will obtain repeat BMP in the pm to monitor for electrolyte imbalances -- IVF / PRN O2 / monitor hemorrhaging-hypoxia microcirculation -- Will continue to trend cbc for platelets and hgb -Patient had low platelets and Dr. Bower was notified by RN and given platelet transfusion today. # Hyponatremia, acute, not present on admission Sodium is a little bit low at 128 today believe due to IV Lasix diuresis Will monitor and maybe cut back on diuretic therapy tomorrow. Encourage salt intake with diet #Bacteremia, gram-negative variable rods, present on admission, active -- 2 blood culture bottles are growing gram variable rods. -- Patient on meropenem and vancomycin IV, day 3 -- Currently seen to be p. aerginosa. Meropenem is the appropriate drug #Electrolyte imbalances -- 1.4 on admission, 2 g magnesium sulfate given IV which increased magnesium level to 2.6. -- Recheck magnesium in the morning -- will repeat bmp in the evening #Thrush, present on admission, improving -- No sign of white exudate on physical exam today however patient has been using nystatin swish and swallow. -- Risk of thrush with antibiotics will increase therefore continue nystatin for a few days. -- will start Posaconazole 200 mg at a suspension every 8 hours # Lower extremity edema, acute, present on admission Go ahead and increase diuresis with Lasix 40 mg IV twice a day from daily as patient is still retaining fluid Chronic issues known prior to admission, present on admission Hypertension Diverticulitis/acid reflux Arthritis/laminectomy --- Continue diltiazem and hold naproxen Diet general DVT prophylaxis scd ambulate, thrombocytopenia and mild elevated INR Code full Disposition: Pending hospital course GI Prophylaxis: Proton Pump Inhibitor VTE Prophylaxis: Other (thrombocytopenic) VTE Mechanical Devices: Intermittant Pneumatic CD Resuscitation Status: CPR: Attempt Resuscitation Time spent 30 minutes Adali Nava MD Oct 16, 2016 14:29
--- NOTE | 2016-10-16 16:59 | NUR ---
Ambulation / Chemo / platelets Pt ambulating halls with at side. Steady gait, denies lightheaded dizzy or SOB. Chemo VSS, afebrile, denies pain, nausea or SOB. Tele; Sinus 50-70s with activity spikes up to 115s. Picc line patent with with brisk blood return in line. Cytarabine - to infuse at 11.8 ml per hour for bag to be completed in 24 hr period. Dexamethasone given daily as pre-med. Chemo infusion started at 0000 10/16/16. Platelets transfused 1 unit. No s/sx of reaction or sensitivity. Premedicated with APAP and Solu-Medrol as ordered. Care continues
[2016-10-16] MEDS: LORazepam 0.5 mg Tablet PO PRN (21:17)
[2016-10-16] MEDS: CYTARABINE IV SCH (23:56)
[2016-10-16] MEDS: SODIUM CHLORIDE 0.9% IV SCH (23:56)
[2016-10-17] VITALS (10 sets, daily range): BP systolic 119–160; BP diastolic 62–74; PULSE 65–75; RESP 16–18; O2SAT 97–100
--- NOTE | 2016-10-17 00:04 | NUR ---
ACTIVITY/GI/RESP; ambulating in the hallways with and mask on. No c/o sob or pain. Chemo infusing without problems. No c/o nausea or vomiting.
--- NOTE | 2016-10-17 03:47 | NUR ---
PICC; good blood return.
[2016-10-17 04:32] LABS: BASOPHILS % (AUTO) 0 % (0-3); EOSINOPHILS % (AUTO) 0 % (0-5); Mean Corpuscular Hemoglobin 30.5 pg (27.0-35.0)
[2016-10-17 04:51] LABS: Magnesium 2.3 mg/dL (1.6-2.6); Phosphorus 3.6 mg/dL (2.5-4.9)
[2016-10-17 04:54] LABS: Platelet Count 20 bil/L (150-400)
[2016-10-17 04:55] LABS: MONOCYTES % (AUTO) 4 % (4-12); NEUTROPHILS % (AUTO) 4 % (40-74)
[2016-10-17] MEDS: Meropenem Inj 2,000 MG in 0.9% Sodium Chloride 100 ML IV SCH ×3 (04:59→20:59)
--- NOTE | 2016-10-17 05:11 | NUR ---
PRESS LEADER; reports heart rate is 64, sinus rhythm.
[2016-10-17] MEDS: Nystatin 100,000 Unit/mL 5 mL Suspension PO SCH ×4 (08:49→20:49)
[2016-10-17] MEDS: POSACONAZOLE PO SCH ×3 (08:49→17:58)
[2016-10-17] MEDS: Pantoprazole 20 mg ER24 Tablet PO SCH ×2 (08:50→20:42)
[2016-10-17] MEDS: Diltiazem CD 120 mg ER24 Capsule PO SCH (08:50)
[2016-10-17] MEDS: Furosemide 10 mg/mL 4 mL Inj IVPUSH SCH (09:29)
--- NOTE | 2016-10-17 10:00 | NUR ---
Standing Blood Admin Order Per MD Bower: Standing order to transfuse 2 units irradiated PRBCs if Hgb drops below 7.5. Premed with APAP 650 PO, Benadryl 25mg PO, and Hydrocortisone 25mg IV prior to PRBC administration. Care continues
--- NOTE | 2016-10-17 10:59 | PCM.PNMED ---
Subjective Date of Service Oct 17, 2016 Subjective Patient has no specific complaints today. He has a small blister in the lower dose of his mild. Bowel movements are now normal. Extremity edema is markedly improved. Exam Vital Signs Vital Sign - Last Date Time Temp Pulse Resp B/P Pulse Ox O2 Delivery O2 Flow Rate FiO2 10/17/16 10:02 36.7 66 16 160/62 100 Room Air Intake and Output 10/16/16 10/16/16 10/17/16 Cumulative From/Thru 15:00 23:00 07:00 10/08/16 14:58 - 10/17/16 05:01 Intake Total 400 ml 2574 ml 350 ml 13392 ml Output Total 3400 ml 2050 ml 29978 ml Balance 400 ml -826 ml -1700 ml 3456 ml Intake Oral 1700 ml 150 ml 86132 ml IV Total 100 ml 874 ml 200 ml 36470 ml Packed Cells 1191 ml Platelets 300 ml 900 ml Output Urine Total 3400 ml 2050 ml 52810 ml # Voids 5 # Bowel Movements 0 11 Exam Constitutional: Male who is in no acute distress Head, normocephalic atraumatic Neck: No adenopathy Mouth: Small blood blister inside of his anterior lower buccal mucosa. No evidence of oral thrush. Chest: Clear to auscultation Cor: Regular rate and rhythm S1-S2 Abdomen: Soft nontender bowel sounds present Extremities: 1+ lower extremity pedal edema Skin: No rashes or erythematous areas Psych: Mood and affect are appropriate Neuro: Alert and oriented 3, motor strength is intact bilaterally Lab and Diagnostics Laboratory Tests 72 Hours Test 10/15/16 05:00 10/15/16 12:35 10/16/16 04:45 10/17/16 04:00 Sodium Level 133mEq/L (134-144) 128mEq/L (134-144) 131mEq/L (134-144) Potassium Level 5.2mEq/L (3.5-5.2) 5.3mEq/L (3.5-5.2) 4.8mEq/L (3.5-5.2) Chloride Level 99mEq/L (97-108) 95mEq/L (97-108) 96mEq/L (97-108) Carbon Dioxide Level 23mmol/L (18-29) 24mmol/L (18-29) 24mmol/L (18-29) Blood Urea Nitrogen 24mg/dL (8-27) 23mg/dL (8-27) 28mg/dL (8-27) Creatinine 0.43mg/dL (0.76-1.27) 0.43mg/dL (0.76-1.27) 0.48mg/dL (0.76-1.27) Estimat Glomerular Filtration Rate 206mL/min (>59) 206mL/min (>59) 182mL/min (>59) Glucose Level 127mg/dL (60-99) 131mg/dL (60-99) 135mg/dL (60-99) Uric Acid 5.9mg/dL (2.6-7.2) 4.7mg/dL (2.6-7.2) 4.2mg/dL (2.6-7.2) Calcium Level 8.1mg/dL (8.5-10.1) 8.4mg/dL (8.5-10.1) 8.6mg/dL (8.5-10.1) Phosphorus Level 4.1mg/dL (2.5-4.9) 3.9mg/dL (2.5-4.9) 3.6mg/dL (2.5-4.9) Magnesium Level 2.4mg/dL (1.6-2.6) 2.2mg/dL (1.6-2.6) 2.3mg/dL (1.6-2.6) Total Bilirubin 1.2mg/dL (0.0-1.2) 1.5mg/dL (0.0-1.2) 1.3mg/dL (0.0-1.2) Aspartate Amino Transf (AST/SGOT) 43U/L (0-50) 31U/L (0-50) 24U/L (0-50) Alanine Aminotransferase (ALT/SGPT) 86U/L (0-44) 73U/L (0-44) 62U/L (0-44) Alkaline Phosphatase 69U/L (25-160) 67U/L (25-160) 64U/L (25-160) Total Protein 5.4g/dL (6.4-8.4) 5.6g/dL (6.4-8.4) 5.4g/dL (6.4-8.4) Albumin 3.1g/dL (3.4-5.0) 3.4g/dL (3.4-5.0) 3.4g/dL (3.4-5.0) White Blood Count 4.9th/mm3 (3.8-10.1) 2.2th/mm3 (3.8-10.1) 1.1th/mm3 (3.8-10.1) Red Blood Count 2.80mil/mm3 (4.40-5.80) 2.94mil/mm3 (4.40-5.80) 2.56mil/mm3 (4.40-5.80) Hemoglobin 8.5g/dL (13.8-17.2) 9.0g/dL (13.8-17.2) 7.8g/dL (13.8-17.2) Hematocrit 26.0% (41.0-50.0) 25.6% (41.0-50.0) 23.3% (41.0-50.0) Mean Corpuscular Volume 92.9fL (81-100) 87.1fL (81-100) 91.0fL (81-100) Mean Corpuscular Hemoglobin 30.4pg (27.0-35.0) 30.6pg (27.0-35.0) 30.5pg (27.0-35.0) Mean Corpuscular Hemoglobin Concent 32.7% (32.0-37.0) 35.2% (32.0-37.0) 33.5% (32.0-37.0) Red Cell Distribution Width 16.7% (12.3-15.4) 16.5% (12.3-15.4) 15.7% (12.3-15.4) Platelet Count 22bil/L (150-400) 14bil/L (150-400) 20bil/L (150-400) Neutrophils (%) (Auto) 2% (40-74) 0.9% (40-74) 4% (40-74) Lymphocytes (%) (Auto) 14% (14-46) 80.9% (14-46) 44% (14-46) Monocytes (%) (Auto) 3% (4-12) 17.7% (4-12) 4% (4-12) Eosinophils (%) (Auto) 0% (0-5) 0.5% (0-5) 0% (0-5) Basophils (%) (Auto) 0% (0-3) 0% (0-3) 0% (0-3) Blast Cells % 81% (0-0) 48% (0-0) Result Diagram: 10/17/160 10/17/16399 X-Rays, CTs and MRIs CT Chest abdomen pelvis with contrast IMPRESSION: 1. Mild dependent changes and trace effusions within the lungs bilaterally. 2. Hepatic steatosis. 3. Mild splenomegaly. 4. Minimal to mild scattered fluid within the abdomen and pelvis as above. 5. Unchanged hypodensity within the pancreatic uncinate process/head. Dictated by: Fernanda Gaines M.D. on 10/08/2016 at 18:06 CT brain without contrast IMPRESSION: 1. No acute intracranial process. 2. Mild to moderate atrophy and chronic microvascular ischemic changes. 3. Right maxillary sinus disease. Dictated by: Fernanda Gaines M.D. on 10/08/2016 at 18:00 Cardiac Echo Impressions Echocardiogram Report Interpretation Summary The left ventricle is normal in size. Left ventricular systolic function is normal without focal wall motion abnormalities. The ejection fraction is estimated to be 60-65%. The right ventricle is normal in size and function. The right ventricular systolic pressure is estimated at 44 mmHg assuming a right atrial pressure of 3 mm Hg. The left atrium is moderately dilated. Right atrial size is normal. There is no significant valvular heart disease. The aortic root is normal size. There is a trivial pericardial effusion noted. There are no echocardiographic indications of cardiac tamponade. There is a moderate left-sided pleural effusion. Assessment & Plan 71-year-old man presented after 2 week history of sinus congestion/URI symptoms since 08/22/2016, no better with Augmentin and doxycycline which was stopped due to upset GI, then developed current 2 week history of abdominal discomfort, cramping diffusely, bloating, vomiting not blood, diarrhea/hiccoughs lasting 1+ hours, then developed fever for one day associated w/ confusion per . 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 Normocytic anemia with rare nucleated RBC. Markedly decreased platelets. Bone Marrow, Aspiration and Biopsy: Acute myeloid leukemia with immunophenotypic characteristics determined by flow cytometry to be consistent with acute myeloid leukemia with minimal monocytic differentiation. Uninvolved marrow consists of markedly decreased trilineage hematopoiesis without identifiable ringed sideroblasts. -- Continue bicarbonate drip with allopurinol @ 75 ml/hr -- will obtain repeat BMP in the pm to monitor for electrolyte imbalances -- IVF / PRN O2 / monitor hemorrhaging-hypoxia microcirculation -- Will continue to trend cbc for platelets and hgb Today is day 7 of induction with SIMÓN-C at 100 mg/m per day Patient completed 3 days of idarubicin on Tuesday, Tuesday, Tuesday # Hyponatremia, acute, not present on admission Sodium is a little bit low at 128 yesterday believe due to IV Lasix diuresis Will monitor and maybe cut back on diuretic therapy tomorrow. Encourage salt intake with diet Sodium 131 today and did get IV dose of Lasix today and will then DC #Bacteremia, gram-negative variable rods, present on admission, active -- 2 blood culture bottles are growing gram variable rods. -- Patient on meropenem and vancomycin IV, day 3 -- Currently seen to be p. aerginosa. Meropenem is the appropriate drug #Electrolyte imbalances Continue to monitor labs All looks fine today #Thrush, present on admission, improving -- No sign of white exudate on physical exam today however patient has been using nystatin swish and swallow. -- Risk of thrush with antibiotics will increase therefore continue nystatin for a few days. -- will start Posaconazole 200 mg at a suspension every 8 hours # Lower extremity edema, acute, present on admission Looks much better so will DC IV Lasix Chronic issues known prior to admission, present on admission Hypertension Diverticulitis/acid reflux Arthritis/laminectomy --- Continue diltiazem and hold naproxen Diet general DVT prophylaxis scd ambulate, thrombocytopenia and mild elevated INR Code full Disposition: Pending hospital course GI Prophylaxis: Proton Pump Inhibitor VTE Prophylaxis: Other (thrombocytopenic) VTE Mechanical Devices: Intermittant Pneumatic CD Resuscitation Status: CPR: Attempt Resuscitation Time spent 30 minutes Adali Nava MD Oct 17, 2016 10:59
--- NOTE | 2016-10-17 11:36 | NUR ---
JOANNA Signed. Caitlin Zepeda CERTIFIED [employer]
--- NOTE | 2016-10-17 11:42 | NUR ---
Social Work-Continued d/c planning Data:EMR Reviewed. Pt is on day 9 of hospitalization for new acute leukemia per h&P. Pt is not medically stable, anticipate 1-2 more days. Pt to receive his last dose of chemotherapy 10/18 at midnight. Pt is followed by Dr. Balbuena, oncology. SW followed up with pt and Rob at bedside. SW discussed discharge needs. Family continues to decline home health. They have lots of support from family and friends, and the pt remains independent with needs. Pt has been up independent in his room. Pt's to provide transport home. No anticipated discharge needs. SW will continue to follow if needs arise. Assessment:Pt who is independent at baseline. Plan:Pt to discharge home with when medically stable via POV. No anticipated discharge needs. SW will continue to follow if needs arise. Caitlin Zepeda, [employer]
--- NOTE | 2016-10-17 11:51 | NUR ---
DC Pt leaves on foot to home with self. A&OX4, Denies CP, SOB, Nausea. Pain controlled with Percocet. Denies lightheaded. Understands all discharge instructions, prescriptions in hand with pt, all belongings in hand. Care discontinued Addendum: 10/17/16 at 1217 by BRIJESH TOTH RN Wrong Pt Disregard
[2016-10-17] MEDS ORDERED: 0.9% Sodium Chloride 100 ML ONE (13:22)
[2016-10-17] MEDS: Dexamethasone 10 mg/50 mL NS IV SCH ×2 (13:29)
[2016-10-17] MEDS ORDERED: Hydrocortisone 50 mg/mL 2 mL Inj IVPUSH ONE (17:10)
[2016-10-17] MEDS ORDERED: diphenhydrAMINE 25 mg Capsule PO ONE (17:10)
[2016-10-17] MEDS ORDERED: diphenhydrAMINE 25 mg Capsule PO PRN (17:15)
[2016-10-17] MEDS ORDERED: Hydrocortisone 50 mg/mL 2 mL Inj IVPUSH PRN (17:20)
--- NOTE | 2016-10-17 18:32 | NUR ---
Ambulation / SOB / Fatigue / Chemo Pt ambulating halls with steady gait and at side. Pt c/o increased fatigue today and states that walking fast or more than a few laps he does feel slightly SOB. SPO2 99-100 on room air. HR remains 60-70s. Pt states that he drank more water which seemed to help as he believes that he was slightly dehydrated as well. D/T the increase fatigue and SOB and H/H was drawn. Chemo VSS, afebrile, denies pain, nausea or SOB. Tele; Sinus 60-70s. Picc line patent with with brisk blood return in line. Cytarabine - to infuse at 11.8 ml per hour for bag to be completed in 24 hr period. Dexamethasone given daily as pre-med. Chemo infusion started at 0000 10/17/16. Care continues
[2016-10-17] MEDS: LORazepam 0.5 mg Tablet PO PRN (21:08)
[2016-10-17] MEDS: SODIUM CHLORIDE 0.9% IV SCH (23:57)
[2016-10-17] MEDS: CYTARABINE IV SCH (23:57)
[2016-10-18] VITALS (18 sets, daily range): BP systolic 120–152; BP diastolic 59–77; PULSE 57–73; RESP 16–20; O2SAT 99–100
--- NOTE | 2016-10-18 03:10 | NUR ---
CHEMO infusing without problems at 11.8cc/hr. Last chemo bag is up. No c/o nausea or vomiting. Prune juice taken for bowels.
[2016-10-18] MEDS ORDERED: 0.9% Sodium Chloride 100 ML ONE (04:41)
[2016-10-18] MEDS: Meropenem Inj 2,000 MG in 0.9% Sodium Chloride 100 ML IV SCH ×3 (05:21→22:01)
[2016-10-18 05:34] LABS: Mean Corpuscular Volume 90.4 fL (81-100)
[2016-10-18 05:39] LABS: Platelet Count 21 bil/L (150-400)
--- NOTE | 2016-10-18 05:43 | NUR ---
LAB; values called to this rn; wbc 0.7, platelets 21,000, hgb 7.8 and hct 23.5. Blood drawn without problems from picc line.
[2016-10-18 06:09] LABS: Magnesium 2.2 mg/dL (1.6-2.6)
--- NOTE | 2016-10-18 08:57 | PROG NOTE ---
[address] [address] PROGRESS NOTE PATIENT: JEFF AMEZCUA : 1945 MR#: [id number] ADMIT: 10/08/2016 JOB ID: [id number] DATE: 10/18/2016 SUBJECTIVE: The patient is a 71-year-old gentleman, completing induction chemotherapy for newly diagnosed acute myelogenous leukemia. He was admitted on October 08, 2016, with a total white count of over 200,000, primarily blasts. Subsequent bone marrow studies confirmed acute myelogenous leukemia. He is completing his 7-day course of induction chemotherapy with idarubicin and leonor-C. His final 24 hour bag of leonor-C is currently infusing. Swelling in his lower extremities has significantly decreased after recent diuresis. He does feel a bit short of breath. No bleeding or atypical bruising. No recent fevers. He had initial blood cultures positive for Pseudomonas aeruginosa, and urine with Enterococcus faecalis. He is on broad-spectrum antibiotic coverage with meropenem and posaconazole. He has been afebrile for more than seven days. OBJECTIVE: Vitals: T 36.5, P 64, R 20, BP 152/76, O2 saturation 99% on room air. Weight 75.9 kg. HEENT: Conjunctivae pale. Mucous membranes slightly dry. No oral lesions. Nodes: No adenopathy in the neck or axilla. Chest: Clear. Cardiac exam: Regular rate and rhythm with normal S1, S2. Abdomen: Soft, nontender, with normoactive bowel tones. No splenomegaly or masses. Extremities: No edema. 2+ distal pulses. No calf tenderness. LABORATORIES: WBC 0.7, hemoglobin 7.8, hematocrit 23.5%, platelets 21,000. Sodium 127, potassium 4.8, BUN 23, creatinine 0.44, glucose 118. AST 30, ALT 71, alkaline phosphatase 63. Total bilirubin 1.4. Uric acid 3.1. ASSESSMENT AND PLAN: De josé miguel acute myelogenous leukemia: The patient presented with an initial white cell count over 200,000, with over 90% blasts. This is due to acute myelogenous leukemia, without evidence of acute promyelocytic translocation. He had 95% blasts immunophenotypically on bone marrow studies. He received three days of idarubicin on October 11 through October 13, 2016, and is now completing day 7 leonor-C 100 mg/m2 per day, which will finish around midnight tonight. White cell count has fallen from an initial level of 216.8, to today's level of 0.7. In addition, he has become anemic and thrombocytopenic. Type and cross. Transfuse 2 units irradiated packed red blood cells and 2 units irradiated platelets today after premedication with Tylenol 650 mg by mouth and hydrocortisone 50 mg IV. With the fall in his white cell count, we will discontinue allopurinol. With the decrease in his weight and normalization of his fluid status, discontinue diuresis. He will likely be discharged tomorrow on oral antibiotic coverage, but is likely to require readmission in the near future, as the vast majority of these patients develop febrile neutropenia during their prolonged neutropenic phase. Schedule CBC, differential, platelets and BMP each Tuesday, Tuesday and Tuesday as outpatient or after discharge.
[2016-10-18] MEDS ORDERED: Hydrocortisone 50 mg/mL 2 mL Inj IV SCH (09:00)
[2016-10-18] MEDS: POSACONAZOLE PO SCH ×3 (10:09→18:27)
[2016-10-18] MEDS: Pantoprazole 20 mg ER24 Tablet PO SCH ×2 (10:09→21:20)
[2016-10-18] MEDS: Diltiazem CD 120 mg ER24 Capsule PO SCH (10:09)
[2016-10-18] MEDS: Nystatin 100,000 Unit/mL 5 mL Suspension PO SCH ×4 (10:09→22:00)
--- NOTE | 2016-10-18 10:32 | NUR ---
Chemo/Blood Return/PreMedsBlood Cytarabine continues to infuse at 11.8ml/hr. Blood return checked and present through both lumens of Right PICC. Pt tolerating. Pt received premedications of PO Benadryl/ PO Tylenol/ IV SoluCortef prior to infusion. Pt aware of the need for blood products. Care continues. Addendum: 10/18/16 at 1710 by WHITNEY DOTY RN Chemo continues to infuse at 11.8ml/hr. No issues thus far this shift.
[2016-10-18] MEDS ORDERED: 0.9% Sodium Chloride 250 ML ONE ×3 (10:47→17:38)
--- NOTE | 2016-10-18 11:16 | NUR ---
Social Work- Readiness for Discharge Data: EMR reviewed. Pt is on day 10 of hospitalization for new acute leukemia per H&P. Pt's last dose of chemotherapy to be completed tonight at midnight, anticipate discharge tomorrow. Per RN notes, pt has been up independent in room. Per pt and , Rob, they have plenty of family support available at home. Pt to discharge home when medically stable, to transport. No anticipated discharge needs. SW continues to follow. Assessment: Pt who is independent at base. Plan: Pt to discharge home when medically stable, anticipate tomorrow. Pt to discharge home when medically stable, to transport. No anticipated discharge needs. SW continues to follow. JAZMIN Lombardi
--- NOTE | 2016-10-18 13:49 | PCM.PNMED ---
Subjective Date of Service Oct 18, 2016 Subjective Patient without any current complaints. Exam Vital Signs Vital Sign - Last Date Time Temp Pulse Resp B/P Pulse Ox O2 Delivery O2 Flow Rate FiO2 10/18/16 13:20 36.4 65 16 136/61 10/18/16 12:59 100 Room Air Intake and Output 10/17/16 10/17/16 10/18/16 Cumulative From/Thru 14:59 22:59 06:59 10/08/16 14:58 - 10/18/16 04:51 Intake Total 3540 ml 1582 ml 43072 ml Output Total 2152 ml 2150 ml 61381 ml Balance 1388 ml -568 ml 4276 ml Intake Oral 2949 ml 1372 ml 30562 ml IV Total 591 ml 210 ml 85519 ml Packed Cells 1191 ml Platelets 900 ml Output Urine Total 2152 ml 2150 ml 93949 ml # Voids 5 # Bowel Movements 0 0 11 Exam Head: Normocephalic atraumatic Eyes: PERRLA DC EOMI Mouth: No thrush,small blood blister on buccal mucosa noted below lip Chest: Clear to auscultation Cor: Regular rate and rhythm S1-S2 Abdomen: Soft nontender bowel sounds present Extremities: No pedal edema Skin no rashes Psych: Mood and affect appropriate Neuro: Alert and oriented 3, motor strength is intact bilaterally Lab and Diagnostics Result Diagram: 10/18/16 0515 10/18/16 0530 X-Rays, CTs and MRIs CT Chest abdomen pelvis with contrast IMPRESSION: 1. Mild dependent changes and trace effusions within the lungs bilaterally. 2. Hepatic steatosis. 3. Mild splenomegaly. 4. Minimal to mild scattered fluid within the abdomen and pelvis as above. 5. Unchanged hypodensity within the pancreatic uncinate process/head. Dictated by: Fernanda Gaines M.D. on 10/08/2016 at 18:06 CT brain without contrast IMPRESSION: 1. No acute intracranial process. 2. Mild to moderate atrophy and chronic microvascular ischemic changes. 3. Right maxillary sinus disease. Dictated by: Fernanda Gaines M.D. on 10/08/2016 at 18:00 Cardiac Echo Impressions Echocardiogram Report Interpretation Summary The left ventricle is normal in size. Left ventricular systolic function is normal without focal wall motion abnormalities. The ejection fraction is estimated to be 60-65%. The right ventricle is normal in size and function. The right ventricular systolic pressure is estimated at 44 mmHg assuming a right atrial pressure of 3 mm Hg. The left atrium is moderately dilated. Right atrial size is normal. There is no significant valvular heart disease. The aortic root is normal size. There is a trivial pericardial effusion noted. There are no echocardiographic indications of cardiac tamponade. There is a moderate left-sided pleural effusion. Assessment & Plan 71-year-old man presented after 2 week history of sinus congestion/URI symptoms since 08/22/2016, no better with Augmentin and doxycycline which was stopped due to upset GI, then developed current 2 week history of abdominal discomfort, cramping diffusely, bloating, vomiting not blood, diarrhea/hiccoughs lasting 1+ hours, then developed fever for one day associated w/ confusion per . 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 Normocytic anemia with rare nucleated RBC. Markedly decreased platelets. Bone Marrow, Aspiration and Biopsy: Acute myeloid leukemia with immunophenotypic characteristics determined by flow cytometry to be consistent with acute myeloid leukemia with minimal monocytic differentiation. Uninvolved marrow consists of markedly decreased trilineage hematopoiesis without identifiable ringed sideroblasts. -- Continue bicarbonate drip with allopurinol @ 75 ml/hr -- will obtain repeat BMP in the pm to monitor for electrolyte imbalances -- IVF / PRN O2 / monitor hemorrhaging-hypoxia microcirculation -- Will continue to trend cbc for platelets and hgb Today is day 7 of induction with SIMÓN-C at 100 mg/m per day Patient completed 3 days of idarubicin on Tuesday, Tuesday, Tuesday -Transfuse pRBCs and platelets (2 units of each) # Hyponatremia, acute, not present on admission Sodium is a little bit low at 128 yesterday believe due to IV Lasix diuresis Will monitor and maybe cut back on diuretic therapy tomorrow. Encourage salt intake with diet Sodium 131 yesterday and today is 128, off diuretics #Bacteremia, gram-negative variable rods, present on admission, active -- 2 blood culture bottles are growing gram variable rods. -- Patient on meropenem and vancomycin IV, day 3 -- Currently seen to be p. aerginosa. Meropenem is the appropriate drug #Electrolyte imbalances Continue to monitor labs All looks fine today #Thrush, present on admission, improving -- No sign of white exudate on physical exam today however patient has been using nystatin swish and swallow. -- Risk of thrush with antibiotics will increase therefore continue nystatin for a few days. -- will start Posaconazole 200 mg at a suspension every 8 hours # Lower extremity edema, acute, present on admission Looks much better so will DC IV Lasix Chronic issues known prior to admission, present on admission Hypertension Diverticulitis/acid reflux Arthritis/laminectomy --- Continue diltiazem and hold naproxen Diet general DVT prophylaxis scd ambulate, thrombocytopenia and mild elevated INR Code full Disposition: Pending hospital course GI Prophylaxis: Proton Pump Inhibitor VTE Prophylaxis: Other (thrombocytopenic) VTE Mechanical Devices: Intermittant Pneumatic CD Resuscitation Status: CPR: Attempt Resuscitation Time spent 30 minutes Adali Nava MD Oct 18, 2016 13:49
--- NOTE | 2016-10-18 14:18 | NUR ---
NUTRITION ASSESSMENT Assess: 71 YO M admitted for new acute leukemia. Pt with good PO intake. PMHX: Hypospadias, erectile dysfunction, BPH, HTN, diverticulitis, acid reflux, arthritis. DIET: General. PO 100%. LABS: Na 127, Cr 0.44, Glu 118, T.bili 1.4, ALT 71 MEDICATIONS: Reviewed. GI: 6 BM 10/14. SKIN: No issues noted. WEIGHT: 75.9 kg, BMI 22.7 kg/m2, Admit wt: 91.0 kg. ESTIMATED NEEDS: Calories: 3192-8430 g/day (25-30 kcal/kg BW) Protein: 76-114 g/day (1.0-1.5 g/kg BW) NUTRITION DIAGNOSIS: 1) No diagnosis at this time. INTERVENTION: 1) No intervention at this time. MONITOR/EVALUATE: PO intake, labs, nutrition status. Follow per low nutrition risk guidelines.
--- NOTE | 2016-10-18 17:09 | NUR ---
Blood Pt tolerated 2x units PLT without issue/reaction through second lumen of Right PICC. At this time, pt finishing 1st unit PRBC - no issue/reaction thus far. Upon completion will start second unit PRBC. Care continues.
[2016-10-18] MEDS: LORazepam 0.5 mg Tablet PO PRN (22:00)
[2016-10-19 00:15] VITALS: BP 177/76; PULSE 66; RESP 18; O2SAT 98
[2016-10-19 05:44] VITALS: BP 159/72; PULSE 77; RESP 18; O2SAT 99
[2016-10-19] MEDS: Meropenem Inj 2,000 MG in 0.9% Sodium Chloride 100 ML IV SCH (05:57)
[2016-10-19 06:24] LABS: BASOPHILS % (AUTO) 0 % (0-3); EOSINOPHILS % (AUTO) 0 % (0-5); MONOCYTES % (AUTO) 0 % (4-12); Mean Corpuscular Hemoglobin 29.9 pg (27.0-35.0); Mean Corpuscular Volume 88.4 fL (81-100); NEUTROPHILS % (AUTO) 13.3 % (40-74)
[2016-10-19 06:27] LABS: Platelet Count 39 bil/L (150-400)
--- NOTE | 2016-10-19 06:38 | NUR ---
Infusions RBCs ended transfusion with no reactions. Pt reports feeling well, ambulated several loops in hallway. Chemo infusion ended at midnight, pt tolerating very well. Minor blisters on interior of lower lip; continues to use saline rinses and Nystatin. IV antibiotics continue per orders. Hourly rounding ongoing.
[2016-10-19 06:49] LABS: Magnesium 2.1 mg/dL (1.6-2.6); Phosphorus 2.2 mg/dL (2.5-4.9)
--- NOTE | 2016-10-19 07:16 | PROG NOTE ---
[address] [address] PROGRESS NOTE PATIENT: JEFF AMEZCUA : 1945 MR#: [id number] ADMIT: 10/08/2016 JOB ID: [id number] DATE: 10/19/2016 SUBJECTIVE: The patient is a 71-year-old gentleman who completed induction chemotherapy for newly diagnosed acute myelogenous leukemia last night. He was admitted on October 08, 2016, with a total white count over 200,000, primarily blasts. Bone marrow studies confirmed acute myelogenous leukemia. He had initial fluid overload, corrected with diuresis. Hyperkalemia was also corrected with initial Kayexalate and subsequent diuresis. Blood cultures were positive for Pseudomonas aeruginosa and urine for Enterococcus faecalis. He has been on broad-spectrum antibiotic coverage with meropenem and posaconazole. He complains of a few blisters on his inner lip. He was transfused yesterday with 2 units packed red blood cells and 2 units of platelets. He denies any shortness of breath. No bleeding or atypical bruising. In general, he feels remarkably good. OBJECTIVE: Vitals: T 36.7, P 77, R 18, BP 159/72, weight 84.3 kg. HEENT: Conjunctivae slightly pale. Mucous membranes moist. He has a few vesicular lesions on the inner lower lip. Nodes: No adenopathy in the neck or axilla. Chest: Slightly decreased at the bases. Cardiac exam: Regular rate and rhythm with normal S1, S2. Abdomen: Soft, nontender, with normoactive bowel tones. Extremities: Trace pedal edema. 1+ distal pulses. No calf tenderness. LABORATORIES: WBC 0.6, with 13% neutrophils, 87% lymphocytes, hemoglobin 9.3, hematocrit 27.5%, platelets 39,000. ASSESSMENT AND PLAN: De josé miguel acute myelogenous leukemia: The patient presented with an initial white count over 200,000, with over 90% blasts. 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 FISH studies for APL were negative. He received three days of idarubicin from October 11 through October 13, and seven days of infusional leonor-C, completed around midnight last night. White cell count fell from an initial level of 216.8, to the current level of 0.6. He has required transfusion support with Leuko-poor irradiated packed red blood cells and platelets. No indication for transfusion support today. He had initial blood cultures that were positive for Pseudomonas aeruginosa, and has completed 10 days of antibiotic therapy with meropenem, remaining afebrile throughout. Given his stable clinical status, I believe he could be safely discharged to outpatient status, with followup [facility] tomorrow for laboratory studies including CBC, differential, platelets, and type and cross. CBC, differential, platelets should be repeated every Tuesday, Tuesday and Tuesday. Please schedule followup with Dr. Balbuena at the Cancer Center next Tuesday. The patient's IV antibiotics can be discontinued, but I recommend prescriptions as an outpatient for Cipro 500 mg by mouth twice daily and acyclovir 200 mg by mouth three times daily. He was advised to call immediately in the event of fevers or signs of active infection, in which case he would require hospitalization for management of febrile neutropenia. In addition, he was advised to call immediately in the event of severe shortness of breath, bleeding or bruising, which might require further transfusion support. Anticipate repeat bone marrow studies in about two weeks to assess remission status. In the event that he had evidence of residual leukemia, he would be readmitted to the hospital for re-induction chemotherapy. If he is in remission, then future consolidation chemotherapy would be arranged.
--- NOTE | 2016-10-19 08:48 | PCM.DIMED ---
Discharge Instructions Date of Service Oct 19, 2016 Dates of Hospitalization Oct 08, 2016 at 18:39 Discharge Diagnosis Discharge Diagnosis AML Diet Other (neutropenic) Patient Instructions Follow-up plan Patient is to follow-up with Dr. Balbuena in his office tomorrow per Dr. Balbuena's recommendations. Adali Nava MD Oct 19, 2016 08:48
[2016-10-19] MEDS ORDERED: NYST1000 PO (08:55)
[2016-10-19] MEDS ORDERED: POSA200O PO (08:55)
[2016-10-19] MEDS ORDERED: CIPR-231 PO (08:55)
[2016-10-19] MEDS ORDERED: PHOS250T PO (08:55)
[2016-10-19] MEDS ORDERED: ACYC200C PO (08:55)
--- NOTE | 2016-10-19 09:11 | PCM.DC.MED ---
Discharge Summary Date of Service Oct 19, 2016 Dates of Hospitalization Date of Hospital Admission Oct 08, 2016 at 18:39 Date of Discharge: Oct 19, 2016 Providers: Admitting Physician: May Hayward MD Primary Care Physician: Bob Velarde MD Attending Physician: May Hayward MD Diagnosis at Time of Discharge Diagnosis at Time of Discharge AML,Bactremia with pseudomonas aeruginosa Consultations Oncology, infectious disease Procedures XRay, CTs & MRIs CT Chest abdomen pelvis with contrast IMPRESSION: 1. Mild dependent changes and trace effusions within the lungs bilaterally. 2. Hepatic steatosis. 3. Mild splenomegaly. 4. Minimal to mild scattered fluid within the abdomen and pelvis as above. 5. Unchanged hypodensity within the pancreatic uncinate process/head. Dictated by: Fernanda Gaines M.D. on 10/08/2016 at 18:06 CT brain without contrast IMPRESSION: 1. No acute intracranial process. 2. Mild to moderate atrophy and chronic microvascular ischemic changes. 3. Right maxillary sinus disease. Dictated by: Fernanda Gaines M.D. on 10/08/2016 at 18:00 Cardiac Echo Impression Echocardiogram Report Interpretation Summary The left ventricle is normal in size. Left ventricular systolic function is normal without focal wall motion abnormalities. The ejection fraction is estimated to be 60-65%. The right ventricle is normal in size and function. The right ventricular systolic pressure is estimated at 44 mmHg assuming a right atrial pressure of 3 mm Hg. The left atrium is moderately dilated. Right atrial size is normal. There is no significant valvular heart disease. The aortic root is normal size. There is a trivial pericardial effusion noted. There are no echocardiographic indications of cardiac tamponade. There is a moderate left-sided pleural effusion. Hospital Course 71-year-old man presented after 2 week history of sinus congestion/URI symptoms since 08/22/2016, no better with Augmentin and doxycycline which was stopped due to upset GI, then developed current 2 week history of abdominal discomfort, cramping diffusely, bloating, vomiting not blood, diarrhea/hiccoughs lasting 1+ hours, then developed fever for one day associated w/ confusion per . 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 Normocytic anemia with rare nucleated RBC. Markedly decreased platelets. Bone Marrow, Aspiration and Biopsy: Acute myeloid leukemia with immunophenotypic characteristics determined by flow cytometry to be consistent with acute myeloid leukemia with minimal monocytic differentiation. Uninvolved marrow consists of markedly decreased trilineage hematopoiesis without identifiable ringed sideroblasts. -- Continue bicarbonate drip with allopurinol @ 75 ml/hr -- will obtain repeat BMP in the pm to monitor for electrolyte imbalances -- IVF / PRN O2 / monitor hemorrhaging-hypoxia microcirculation -- Will continue to trend cbc for platelets and hgb Yesterday was day 7 of induction with SIMÓN-C at 100 mg/m per day Patient completed 3 days of idarubicin on Tuesday, Tuesday, Tuesday -Per Oncology on day of discharge: ASSESSMENT AND PLAN: De josé miguel acute myelogenous leukemia: The patient presented with an initial white count over 200,000, with over 90% blasts. 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 FISH studies for APL were negative. He received three days of idarubicin from October 11 through October 13, and seven days of infusional simón-C, completed around midnight last night. White cell count fell from an initial level of 216.8, to the current level of 0.6. He has required transfusion support with Leuko-poor irradiated packed red blood cells and platelets. No indication for transfusion support today. He had initial blood cultures that were positive for Pseudomonas aeruginosa, and has completed 10 days of antibiotic therapy with meropenem, remaining afebrile throughout. Given his stable clinical status, I believe he could be safely discharged to outpatient status, with followup in the Cancer Center tomorrow for laboratory studies including CBC, differential, platelets, and type and cross. CBC, differential, platelets should be repeated every Tuesday, Tuesday and Tuesday. Please schedule followup with Dr. Balbuena at the Cancer Center next Tuesday. The patient's IV antibiotics can be discontinued, but I recommend prescriptions as an outpatient for Cipro 500 mg by mouth twice daily and acyclovir 200 mg by mouth three times daily. He was advised to call immediately in the event of fevers or signs of active infection, in which case he would require hospitalization for management of febrile neutropenia. In addition, he was advised to call immediately in the event of severe shortness of breath, bleeding or bruising, which might require further transfusion support. Anticipate repeat bone marrow studies in about two weeks to assess remission status. In the event that he had evidence of residual leukemia, he would be readmitted to the hospital for re-induction chemotherapy. If he is in remission, then future consolidation chemotherapy would be arranged. Sai Balbuena MD 10/19/16 0634 # Hyponatremia, acute, not present on admission Sodium is a little bit low at 128 yesterday believe due to IV Lasix diuresis Will monitor and maybe cut back on diuretic therapy tomorrow. Encourage salt intake with diet Sodium 131 yesterday and today is 128, off diuretics # Hypophosphatemia, acute, not present on admission Low phosphate day of discharge so we will initiate Neutra-Phos 250 mg by mouth twice a day #Bacteremia, gram-negative variable rods, present on admission, active -- 2 blood culture bottles are growing gram variable rods. -- Patient on meropenem and vancomycin IV, day 3 -- Currently seen to be p. aerginosa. Meropenem is the appropriate drug - Patient has completed 10 days of meropenem IV so will be sent home on Cipro 500 mg by mouth twice a day and to continue until otherwise notified by oncology #Electrolyte imbalances Continue to monitor labs All looks fine today #Thrush, present on admission, improving -- No sign of white exudate on physical exam today however patient has been using nystatin swish and swallow. -- Risk of thrush with antibiotics will increase therefore continue nystatin . -- will start Posaconazole 200 mg at a suspension every 8 hours # Lower extremity edema, acute, present on admission Looks much better so will DC IV Lasix Chronic issues known prior to admission, present on admission Hypertension Diverticulitis/acid reflux Arthritis/laminectomy --- Continue diltiazem and hold naproxen Diet neutropenic DVT prophylaxis scd ambulate, thrombocytopenia and mild elevated INR Code full Disposition: Home Exam Vital Signs (Last) Date Time Temp Pulse Resp B/P Pulse Ox O2 Delivery O2 Flow Rate FiO2 10/19/16 05:44 36.7 77 18 159/72 99 Room Air Exam Constitutional: In no acute distress Head: Normocephalic atraumatic Mouth: No lesions Chest: Clear to auscultation Cor: Regular rate and rhythm S1-S2 without murmur Abdomen: Soft nontender bowel sounds present Extremities: No pedal edema Psych: Mood and affect are appropriate Skin: No rashes noted Neuro: Alert and oriented 3, motor strength is intact bilaterally Test 10/08/16 15:16 10/08/16 18:05 10/08/16 18:14 10/08/16 22:45 Blood Smear Pathologist Review Prothrombin Time 14.2sec (8.1-12.5) Prothromb Time International Ratio 1.32ratio Activated Partial Thromboplast Time 29.9sec (22.8-33.0) Fibrinogen 506mg/dL (157-380) Direct Bilirubin 0.8mg/dL (0.0-0.3) Lipase 8U/L (13-60) Hold [place] Top Tube Received (Received) [facility] Specimen Peripheral blood (.) [facility] Submitting Diagnosis Comment (.) [facility] Red Blood Cells Sprcs (.) [facility] Granulocytes Comment (.) [facility] Monocytes Comment (.) [facility] Viability 95% (.) [facility] Comment Comment (.) [facility] Antibodies Performed Comment (.) [facility] Flow Differential Percent Comment (.) [facility] Food And Nutrition Professor Histogram (.) [facility] Interpretation Comment (.) Urine Color Dark yellow (YELLOW) Urine Appearance Hazy (CLEAR,HAZY) Urine pH 5.5 (5.0-8.0) Urine Specific [place] 1.010 (1.003-1.035) Urine Protein 30mg/dL (NEG,TRACE) Urine Glucose (UA) Negativemg/dL (NEGATIVE) Urine Ketones Tracemg/dL (NEGATIVE) Urine Occult Blood Trace (NEGATIVE) Urine Nitrite Negative (NEGATIVE) Urine Bilirubin Negative (NEGATIVE) Urine Urobilinogen 2.0mg/dL (NORMAL) Urine Leukocyte Esterase Negative (NEGATIVE) Urine RBC 0-2/hpf (0-2) Urine WBC 0-5/hpf (0-5) Urine Epithelial Cells Few/hpf (NONE-MOD) Urine Crystals None seen (NONE SEEN) Urine Bacteria Few/hpf (NONE-FEW) Urine Hyaline Casts Rare/lpf (NONE) Urine Granular Casts None seen (NONE SEEN) Urine Waxy Casts None seen (NONE SEEN) Urine Red Blood Cell Casts None seen (NONE SEEN) Urine White Blood Cell Casts None seen (NONE SEEN) Urine Mucus Present (None Seen) Urine Trichomonas None seen (NONE SEEN) Urine Yeast None (NONE SEEN) Urinalysis Comment None Urine Culture Reflexed Not indicated Osmolality 247 (275-300) Test 10/09/16 01:40 10/09/16 18:13 10/10/16 03:30 10/11/16 06:20 Hold Urine Received (Received) Fungal Antibodies 37pg/mL (.) Aspergillus galactomannan Antigen 0.05Index (0.00-0.49) Lactic Acid Level 1.0mmol/L (0.4-2.0) Lactate Dehydrogenase 596U/L (100-190) Nucleated Red Blood Cells 1/100 WBC (0-24) Herpes Simplex Virus I IgG Antibody < 0.91index (0.00-0.90) Herpes Simplex Virus II IgG Ab <0.91index (0.00-0.90) Test 10/12/16 05:00 10/17/16 04:00 10/19/16 06:00 Hematology Comments Rbc Blast Cells % 48% (0-0) White Blood Count 0.6th/mm3 (3.8-10.1) Red Blood Count 3.11mil/mm3 (4.40-5.80) Hemoglobin 9.3g/dL (13.8-17.2) Hematocrit 27.5% (41.0-50.0) Mean Corpuscular Volume 88.4fL (81-100) Mean Corpuscular Hemoglobin 29.9pg (27.0-35.0) Mean Corpuscular Hemoglobin Concent 33.8% (32.0-37.0) Red Cell Distribution Width 16.3% (12.3-15.4) Platelet Count 39bil/L (150-400) Neutrophils (%) (Auto) 13.3% (40-74) Lymphocytes (%) (Auto) 86.7% (14-46) Monocytes (%) (Auto) 0% (4-12) Eosinophils (%) (Auto) 0% (0-5) Basophils (%) (Auto) 0% (0-3) Sodium Level 129mEq/L (134-144) Potassium Level 4.4mEq/L (3.5-5.2) Chloride Level 98mEq/L (97-108) Carbon Dioxide Level 23mmol/L (18-29) Blood Urea Nitrogen 22mg/dL (8-27) Creatinine 0.42mg/dL (0.76-1.27) Estimat Glomerular Filtration Rate 212mL/min (>59) Glucose Level 86mg/dL (60-99) Uric Acid 2.4mg/dL (2.6-7.2) Calcium Level 8.3mg/dL (8.5-10.1) Phosphorus Level 2.2mg/dL (2.5-4.9) Magnesium Level 2.1mg/dL (1.6-2.6) Total Bilirubin 1.4mg/dL (0.0-1.2) Aspartate Amino Transf (AST/SGOT) 21U/L (0-50) Alanine Aminotransferase (ALT/SGPT) 52U/L (0-44) Alkaline Phosphatase 64U/L (25-160) Total Protein 5.3g/dL (6.4-8.4) Albumin 3.2g/dL (3.4-5.0) Discharge Medications Discharge Medications Acyclovir (Acyclovir) 200 Mg Capsule 200 MG PO TID Prescribed by: ADALI NAVA MD Ciprofloxacin (Cipro) 500 Mg Tablet 500 MG PO BID Prescribed by: ADALI NAVA MD Diltiazem ER (Cartia XT) 120 Mg Cap.er.24h 120 MG PO QAM (Reported) Nystatin (Nystatin) 100,000 Unit/1 Ml Oral.susp 500,000 UNIT PO PCHS Prescribed by: ADALI NAVA MD Omeprazole (Omeprazole) 20 Mg Capsule.dr 20 MG PO QAM (Reported) Phosphorus (Phospha 250 Neutral Tablet) 250 Mg Tablet 250 MG PO BID Prescribed by: ADALI NAVA MD Posaconazole (Noxafil) 200 Mg/5 Ml Oral.susp 200 MG PO TIDWM Prescribed by: ADALI NAVA MD As needed Acetaminophen (Tylenol Arthritis) 650 Mg Tablet.er 1,300 MG PO TID PRN PRN For Pain (Reported) Clobetasol Propionate (Clobetasol Propionate) 15 Gm Oint...g. 1 APPLIC TOPICAL DAILY PRN PRN scalp itching (Reported) Sildenafil Citrate (Viagra) 100 Mg Tablet 50 MG PO DAILY PRN PRN for sexual activity (Reported) Followup Plan Disposition: To home Follow-up plan Patient is to follow-up with Dr. Balbuena in his office tomorrow per Dr. Balbuena's recommendations. Discharge Diet: Other (neutropenic) Adali Nava MD Oct 19, 2016 09:11
[2016-10-19 09:25] VITALS: BP 150/69; PULSE 73; RESP 18; O2SAT 100
[2016-10-19] MEDS: POSACONAZOLE PO SCH (09:28)
[2016-10-19] MEDS: Pantoprazole 20 mg ER24 Tablet PO SCH (09:29)
[2016-10-19] MEDS: Nystatin 100,000 Unit/mL 5 mL Suspension PO SCH (09:29)
[2016-10-19] MEDS: Diltiazem CD 120 mg ER24 Capsule PO SCH (09:29)
--- NOTE | 2016-10-19 10:31 | NUR ---
Social Work- Discharge Data: EMR reviewed. Pt is on day 11 of hospitalization for new acute leukemia per H&P. Pt has completed chemotherapy and will discharge today. Pt to discharge home with to transport via POV. No discharge needs. Assessment: [place] who [place] base. Plan: Pt to discharge home today with to transport via POV. No discharge needs. JAZMIN Lombardi
--- NOTE | 2016-10-19 14:13 | NUR ---
Discharge Pt was discharged at 1400 Pt was given written and verbal instructions of medications and continued treatment, states understanding. Driven home by , prescriptions faxed to [facility]
--- NOTE | 2016-10-19 16:27 | NUR ---
Discharge Pt discharged to home with at 1400. A&OX3, SHIPMAN, 2x PICC to Right Arm - SL, VSS, No Pain, All personal belongings in hand at discharge.\ Hard copy scripts provided to pt - [facility]ed to [facility] per their request. Call to Dr. Balbuena office for followup appt - his MA stated she would call pt with appointment time. Care Notes and instructions provided on dx dc, new medications and s/sx to seek medical attention for. No unanswered questions/concerns left unanswered. Pt walked off unit to vehicle.
[2016-10-20] MEDS ORDERED: CHOL40003 PO (11:49)
[2016-11-29] MEDS ORDERED: CYAN250010 PO (16:42)
[2016-11-29] MEDS ORDERED: MULT-666 PO (16:42)
[2016-11-29] MEDS ORDERED: GLUC-120 PO (16:42)
[2016-11-29] MEDS ORDERED: OMEG300C3 PO (16:42)
[2016-11-29] MEDS ORDERED: UBID100C16 PO (16:42)
[2016-11-29] MEDS ORDERED: MAGN250T29 PO (16:42)
[2016-11-29] MEDS ORDERED: MAGN100T6 PO (16:42)
[2016-12-15] MEDS ORDERED: LEVO500T16 PO (10:23)
[2017-01-31] MEDS ORDERED: VIT1TABL83 PO (12:29)
[2017-01-31] MEDS ORDERED: ASCO-294 PO (12:29)
[2017-01-31] MEDS ORDERED: LORA1TAB PO (17:03)
== END 2016-10-19 14:00 | disposition home or self-care (01) | DRG 835 ==
LOC: SED 14:38 → MPC 18:39 → OSC 10-10 15:00
PROVIDERS: ADMIT Urology; ATTEND Urology
PROC: 30233N1 Transfusion of Nonautologous Red Blood Cells into Peripheral Vein, Percutaneous Approach (ICD-10-PCS; 2016-10-09)
PROC: 07DR3ZX Extraction of Iliac Bone Marrow, Percutaneous Approach, Diagnostic (ICD-10-PCS; principal; 2016-10-11)
PROC: 30233N1 Transfusion of Nonautologous Red Blood Cells into Peripheral Vein, Percutaneous Approach (ICD-10-PCS; 2016-10-11)
PROC: 3E03305 Introduction of Other Antineoplastic into Peripheral Vein, Percutaneous Approach (ICD-10-PCS; 2016-10-11)
PROC: 30233N1 Transfusion of Nonautologous Red Blood Cells into Peripheral Vein, Percutaneous Approach (ICD-10-PCS; 2016-10-13)
PROC: 30233R1 Transfusion of Nonautologous Platelets into Peripheral Vein, Percutaneous Approach (ICD-10-PCS; 2016-10-16)
PROC: 30233R1 Transfusion of Nonautologous Platelets into Peripheral Vein, Percutaneous Approach (ICD-10-PCS; 2016-10-18)
PROC: 30233N1 Transfusion of Nonautologous Red Blood Cells into Peripheral Vein, Percutaneous Approach (ICD-10-PCS; 2016-10-18)
DX: C92.50 Acute myelomonocytic leukemia, not having achieved remission (principal); E87.2 Acidosis; R78.81 Bacteremia; B37.0 Candidal stomatitis; E87.1 Hypo-osmolality and hyponatremia; I10 Essential (primary) hypertension; K21.9 Gastro-esophageal reflux disease without esophagitis; B96.5 Pseudomonas (aeruginosa) (mallei) (pseudomallei) as the cause of diseases classified elsewhere

== ENCOUNTER 2016-10-24 06:03 | Inpatient (IN) | payer MEDICARE, OTHER ==
[~2016-10-24] VITALS: Ht 180.3 cm; Wt 71.7 kg
[2016-10-24] VITALS (11 sets, daily range): BP systolic 142–166; BP diastolic 56–78; PULSE 84–100; RESP 16–20; O2SAT 96–100
[~2016-10-24 06:03] MED LIST: ACET-2766 PO; ACYC200C PO; CHOL40003 PO; CIPR-231 PO; CLOB15OI2 TOPICAL; DILT120C52 PO; NYST1000 PO; OMEP20CA11 PO; PHOS250T PO; POSA200O PO; SILD100T PO
--- NOTE | 2016-10-24 06:25 | ED.REPORT ---
HPI-Fever Date of Service Oct 24, 2016 ED Provider: Esteban Mendes MD A 71 year old male with a history of acute myelogenous leukemia and hypertension presents to the ED complaining of a fever that began yesterday. Associated symptoms include a "burning" rash on his neck, headache and oral sores. Patient was recently admitted on 10/08 for acute leukemia with a white count over 200,000. He completed 5 days of SIMÓN-C induction chemotherapy. Patient 's diagnosis was confirmed with bone marrow testing. Blood cultures were positive for gram negative bacteremia and patient took Cipro to completion. He was discharged on 10/19 in good condition with a plan to follow up with Dr. Balbuena. Patient's reports that he received a platelet transfusion 2 days ago at [facility]. He denies cough, sore throat, chest pain, SOB or abdominal pain. Nursing Notes Stated Complaint: FEVER, CHEMO PATIENT Chief Complaint: General Complaint Nursing Notes Reviewed: Yes Allergies: Coded Allergies: atenolol (Verified Allergy, Severe, hives, 10/08/16) doxycycline (Verified Adverse Reaction, Severe, abdominal cramping, ) amlodipine (Verified Adverse Reaction, Intermediate, ankle swelling, ) cetirizine (Verified Adverse Reaction, Intermediate, prostate issues, 10/08) hydrochlorothiazide (Verified Adverse Reaction, Intermediate, headache, ) hydrocodone (Verified Adverse Reaction, Intermediate, upset stomach, ) lisinopril (Verified Adverse Reaction, Intermediate, low sodium, 10/08/16) piroxicam (Verified Adverse Reaction, Intermediate, low iron, 10/08/16) Scheduled Acyclovir (Acyclovir) 200 Mg Capsule 200 MG PO TID Cholecalciferol (Vitamin D3) (Vitamin D3) 4,000 Unit Capsule 4,000 UNIT PO DAILY Ciprofloxacin (Cipro) 500 Mg Tablet 500 MG PO BID Diltiazem ER (Cartia XT) 120 Mg Cap.er.24h 120 MG PO QAM Nystatin (Nystatin) 100,000 Unit/1 Ml Oral.susp 500,000 UNIT PO PCHS Omeprazole (Omeprazole) 20 Mg Capsule.dr 20 MG PO QAM Phosphorus (Phospha 250 Neutral Tablet) 250 Mg Tablet 250 MG PO BID Posaconazole (Noxafil) 200 Mg/5 Ml Oral.susp 200 MG PO TIDWM Scheduled PRN Acetaminophen (Tylenol Arthritis) 650 Mg Tablet.er 1,300 MG PO TID PRN PRN For Pain Clobetasol Propionate (Clobetasol Propionate) 15 Gm Oint...g. 1 APPLIC TOPICAL DAILY PRN PRN scalp itching Sildenafil Citrate (Viagra) 100 Mg Tablet 50 MG PO DAILY PRN PRN for sexual activity General Time Seen by MD: 06:23 Chief Complaint Recent fever Hx Obtained From: Patient Arrived By: Walk-in Onset Occurred: Yesterday Symptom Duration: Since onset Location: : Neck Quality: Burning Severity: Current: Mild Severity: Maximum: Moderate Associated with: Reports: Headache, Rash (Neck burning due to rash), Denies: Abdominal pain, Chest pain, Cough, non-productive, Cough, productive , Shortness of breath, Sore throat Pertinent Negative: Pt denies other symptoms Recent Healthcare: Recent doctor visit, Recent hospitalization Past Medical History Past Medical History Acute myelogenous leukemia - Diagnosed 10/08/16 Hypertension Environmental allergies GERD History of cervical adenopathy 2003 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 Erectile dysfunction left vitreal detachment in 2008 Past Surgical History Rectum E Hernia repair the inguinal 2 in the right colonoscopy normal 2009 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 Physical Exam Initial Vital Signs Vital Signs (First) Date Time Temp Pulse Resp B/P Pulse Ox O2 Delivery O2 Flow Rate FiO2 10/24/16 06:05 38.2 99 16 151/78 100 Room Air Initial VS: Reviewed Head / Eyes: Atraumatic, Normocephalic, PERRL Extremities: Vascular intact, Neuro intact, No swelling, No tenderness General/Constitutional: Awake, Alert, No acute distress Neck: Atraumatic, Supple, No meningismus, Full range of motion Meningeal Signs / ROM: Negative: Brudzinski's positive, Kernig's positive Soft Tissue Neck: Positive: Skin erythematous... (Diffuse Anterior), Swelling present... (Diffuse), Negative: Fluctuance present... Respiratory / Chest: Atraumatic, Breath sounds NL, Breath sounds = bilat, No respiratory distress Cardiovascular: Heart rate NL, Regular rhythm, Heart sounds NL, No murmurs CARDIO: No lower extremity edema Skin: Atraumatic, Warm, Dry Neurologic: Oriented X3, Speech NL, No motor deficits, No sensory deficits ENT: Atraumatic, Airway patent, Mucous membranes moist, Pharynx NL (Oropharynx is clear ) Abdomen: Atraumatic, Soft, Non-tender, No guarding, No rebound Interpretation & Diagnostics NECK US Read by Radiology IMPRESSION: No sonographic evidence for neck abscess. Dictated by: Shawn Marcial M.D. on 10/24/2016 at 8:02 Lab Results Interpretation Result Diagram: 10/24/16 0630 10/24/16 0630 Test 10/24/16 06:30 10/24/16 07:53 10/24/16 08:11 10/24/16 08:20 White Blood Count 0.2th/mm3 (3.8-10.1) Red Blood Count 2.67mil/mm3 (4.40-5.80) Hemoglobin 7.9g/dL (13.8-17.2) Hematocrit 23.5% (41.0-50.0) Mean Corpuscular Volume 88.0fL (81-100) Mean Corpuscular Hemoglobin 29.6pg (27.0-35.0) Mean Corpuscular Hemoglobin Concent 33.6% (32.0-37.0) Red Cell Distribution Width 13.8% (12.3-15.4) Platelet Count 18bil/L (150-400) Neutrophils (%) (Auto) % (40-74) Lymphocytes (%) (Auto) % (14-46) Monocytes (%) (Auto) % (4-12) Eosinophils (%) (Auto) % (0-5) Basophils (%) (Auto) % (0-3) Hematology Comments Sodium Level 125mEq/L (134-144) Potassium Level 3.9mEq/L (3.5-5.2) Chloride Level 92mEq/L (97-108) Carbon Dioxide Level 20mmol/L (18-29) Blood Urea Nitrogen 13mg/dL (8-27) Creatinine 0.47mg/dL (0.76-1.27) Estimat Glomerular Filtration Rate 186mL/min (>59) Glucose Level 115mg/dL (60-99) Lactic Acid Level 1.3mmol/L (0.4-2.0) Calcium Level 8.5mg/dL (8.5-10.1) Magnesium Level 1.8mg/dL (1.6-2.6) Total Bilirubin 1.3mg/dL (0.0-1.2) Aspartate Amino Transf (AST/SGOT) 13U/L (0-50) Alanine Aminotransferase (ALT/SGPT) 27U/L (0-44) Alkaline Phosphatase 92U/L (25-160) Total Protein 6.1g/dL (6.4-8.4) Albumin 3.3g/dL (3.4-5.0) Procalcitonin 0.08ng/mL (0.00-0.08) Urine Color Yellow (YELLOW) Urine Appearance Clear (CLEAR,HAZY) Urine pH 7.0 (5.0-8.0) Urine Specific [place] 1.016 (1.003-1.035) Urine Protein 30mg/dL (NEG,TRACE) Urine Glucose (UA) Negativemg/dL (NEGATIVE) Urine Ketones Negativemg/dL (NEGATIVE) Urine Occult Blood Small (NEGATIVE) Urine Nitrite Negative (NEGATIVE) Urine Bilirubin Negative (NEGATIVE) Urine Urobilinogen Normalmg/dL (NORMAL) Urine Leukocyte Esterase Negative (NEGATIVE) Urine RBC 0-2/hpf (0-2) Urine WBC 0-5/hpf (0-5) Urine Epithelial Cells None/hpf (NONE-MOD) Urine Crystals None seen (NONE SEEN) Urine Bacteria None/hpf (NONE-FEW) Urine Hyaline Casts None/lpf (NONE) Urine Granular Casts None seen (NONE SEEN) Urine Waxy Casts None seen (NONE SEEN) Urine Red Blood Cell Casts None seen (NONE SEEN) Urine White Blood Cell Casts None seen (NONE SEEN) Urine Mucus None seen (None Seen) Urine Trichomonas None seen (NONE SEEN) Urine Yeast None (NONE SEEN) Urinalysis Comment None Urine Culture Reflexed Not indicated ECG Interpretation ECG Interpretation: Sinus Rhythm Rate [address] changes Time: 07:04 Interpreted by: ED physician X-Ray Chest Interpretation Chest Xray Interpretation: IMPRESSION: No acute cardiopulmonary disease. Dictated by: Shawn Marcial M.D. on 10/24/2016 at 7:29 Interpretation / Wet Read by: Interpret - Radiologist Re-Eval/Medical Decision Med Decision/Clinical Course 71-year-old male history of recent diagnosis AML in September discharged every after bacteremia and chemotherapy. Bacteremia with Pseudomonas. Patient reports fevers at home this week. Febrile to 102 here. Blood pressures are normal. Only other complaint is red and painful neck. On exam he has cellulitis of the anterior neck with no fluctuance. The PICC line site with very mild erythema. The blood cell count is 0.2. Platelets are 18. He was transfused platelets yesterday and they were previously 9. No active bleeding. Discussed with oncology and we will admit for neutropenic fever, cellulitis, thrombocytopenia. Patient was given meropenem and vancomycin. Blood cultures sent. Sent aspergillosis and fungisil as well. Ultrasound of the neck shows no abscess and no blood clots. Full code. Neutropenic precautions. Re-Evaluation/Progress #1: Time of Eval: 07:56 Patient Status: Condition improved Re-Evaluation/Progress Note: Patient is rechecked. There is slight erythema around the neck. He is informed of his lab results, CT results, EKG results, X-ray results and diagnosis. Re-Evaluation/Progress #2: Time of Eval: 08:54 Patient Status: Condition improved Re-Evaluation/Progress Note: Patient is rechecked. All of the patient's questions are addressed. He understands and agrees with the treatment plan to admit. Re-Evaluation/Progress #3: Time of Eval: 09:08 Patient Status: Condition improved Re-Evaluation/Progress Note: Patient is rechecked. Code status is discussed. Patient would like to be full code. Consultation #1: Referral / Consult Name: Jorge Stephens MD Call Returned at: 07:50 Dcs Engineer: Will see patient, Agrees with eval, Agrees with plan Note: Oncology Recommends admission and beginning galactomannan and fungisil Consultation #2: Referral / Consult Name: Eben Lucio MD Consulted With: Hospitalist Call Returned at: 08:49 Dcs Engineer: Will see patient, Agrees with eval, Agrees with plan, Accepts admit Counseled Regarding: Diagnosis, Lab results, Need for admission Discharge & Departure Impression: Primary Impression: Neutropenic fever Additional Impressions: Cellulitis Site of cellulitis: neck Qualified Code: L03.221 - Cellulitis of neck Thrombocytopenia Disposition: ADMITTED TO HOSPITAL Discharge Condition All VS Reviewed: Yes Condition: Stable Referrals: Bob Velarde MD (PCP) Sai Balbuena MD Attestation Portions of this note were transcribed by Jesi Guy. I, Dr. Mendes personally performed the history, physical exam and medical decision-making; I reviewed and confirmed the accuracy of the information in the transcribed note. Signed by: Panda Velasquez, 10/24/16 0930. copies to: Bob Velarde MD; Sai Balbuena MD, Ben M MD Oct 24, 2016 06:25 JESI GUY Oct 24, 2016 06:44
[2016-10-24] MEDS ORDERED: 0.9% Sodium Chloride 1,000 ML IV ONE (06:44)
[2016-10-24] MEDS ORDERED: Meropenem Inj 1,000 MG in 0.9% Sodium Chloride 100 ML IV ONE (06:45)
[2016-10-24] MEDS ORDERED: Vancomycin Dose per Pharmacist XX ONE (06:45)
[2016-10-24 06:57] LABS: Mean Corpuscular Hemoglobin 29.6 pg (27.0-35.0)
[2016-10-24] MEDS ORDERED: Vancomycin Inj 1,500 MG in 0.9% Sodium Chloride 500 ML IV ONE (07:05)
--- NOTE | 2016-10-24 07:31 | DRSVH ---
PROCEDURE: X-RAY CHEST ONE VIEW, PORTABLE ([id number]) INDICATIONS: 71 year-old male with neutropenic fevers. TECHNIQUE: One view of the chest was acquired. COMPARISON: None. FINDINGS: Surgical changes and devices: Right PICC is present, with tip in the upper superior vena cava. Lungs and pleura: No pleural effusions or pneumothorax. Lungs are clear. Mediastinum: Mediastinal contours appear normal. Heart size is normal. There is aortic atheroscler osis. Bones and chest wall: No suspicious bony lesions. Overlying soft tissues appear unremarkable. IMPRESSION: No acute cardiopulmonary disease. Dictated by: Shawn Marcial M.D. on 10/24/2016 at 7:29 Approved by: Shawn Marcial M.D. on 10/24/2016 at 7:29
[2016-10-24 07:33] LABS: Magnesium 1.8 mg/dL (1.6-2.6)
[2016-10-24 07:40] LABS: Platelet Count 18 bil/L (150-400)
--- NOTE | 2016-10-24 08:05 | DRSVH ---
PROCEDURE: US SOFT TISSUE OF HEAD OR NECK SONOGRAM INDICATIONS: 71 year-old male with neutropenic fevers and neck swelling. Assess for abscess. TECHNIQUE: Real-time scanning was performed of the neck region of interest, with image documentation. COMPARISON: None. FINDINGS: In the region of interest, no fluid collections identified to suggest abscess. Normal-appea ring sternocleidomastoid muscles are identified. No enlarged lymph nodes identified. IMPRESSION: No sonographic evidence for neck abscess. Dictated by: Shawn Marcial M.D. on 10/24/2016 at 8:02 Approved by: Shawn Marcial M.D. on 10/24/2016 at 8:03
[2016-10-24] MEDS ORDERED: Ondansetron 2 mg/mL 2 mL Inj IVPUSH PRN (09:15)
[2016-10-24 09:16] LABS: APPEARANCE,URINE CLEAR (CLEAR,HAZY); COLOR,URINE YELLOW (YELLOW); OCCULT BLOOD,URINE SMALL (NEGATIVE); UROBILINOGEN,URINE NORMAL (NORMAL)
[2016-10-24] MEDS: Vancomycin Dose per Pharmacist XX SCH (10:25)
[2016-10-24] MEDS ORDERED: oxyCODONE-Acetamin 10-325 mg Tablet PO PRN (11:00)
[2016-10-24] MEDS ORDERED: fentaNYL-PF 50 mCg/mL 2 mL Inj IVPUSH PRN (11:35)
[2016-10-24] MEDS ORDERED: ACYCLOVIR IV SCH (11:40)
[2016-10-24] MEDS ORDERED: SODIUM CHLORIDE 0.9% IV SCH (11:40)
--- NOTE | 2016-10-24 11:50 | PCM.HPMED ---
Subjective Date of Service Oct 24, 2016 Primary Provider: Admitting Physician: Eben Lucio MD Primary Care Physician: Bob Velarde MD Attending Physician: Eben Lucio MD Chief Complaint: fever, neck pain History of Present Illness: 71 yo M w/ recent hospitalization 10/08-10/19 with newly diagnosed AML s/p induction ctx, pseudomonas bacteremia, E.Fecalis UTI p/w fever with neck started 2days ago. Of note, pt was initially admitted on 10/08 with unresolving URI sx, not improved with oral abx, abdominal pain, vomiting, diarrhea, labs had [id number] with over 90% blasts, underwent BM biopsy, dxed AML, finished induction CTx, hospital course complicated by pseudomonas bacteremia,E.Fecalis UTI. pt was treated with vancomycin, meropenem, later switched to cipro 500 bid. Pt also received acyclovir, nystatin, posaconazole and d/zeeshan with these meds. Since patient left the hospital 5 days ago, patient was doing okay, eating well with good appetite, patient was taking all of his meds including ciprofloxacin, acyclovir, antifungals then starting having low-grade temperature since 3days ago, 100.4, few times, pt also noticed itchiness around his neck without difficulty swallowing, the past 2 days, itchiness has progressed to severe burning with redness, patient developed persistent fever at home up to 101.5 last night, called Dr. Stephens, recommended to come to ED. pt also had mild pain when he swallowed on Rt lower side of neck, but felt pain is more superficial, burning on his neck skin. denied posterior neck pain, headache, dizziness, cough, sputum, diarrhea-last BM 2days ago constipated, no back pain, no pain on s/p BMB area, no pain on PICC line site. pt denied sick contacts, family was very cautious about hygiene at home. no dysuria/urgency/frequency. In ED, VS 151/78, 99, 16,39.1, 100% on RA, pt looked distressed, labs showed worsening leukopenia wbc0.2, persistent severe thrombocytopenia 9 to 18k, mildly worsened hyponatremia, procal0.08, lactate1.3, stable creatinine. CXR/UA -unremarkable. BCX sent, received vancomycin, meropenem. US of neck didn't show abscess, no reactive LAD. During the interview on OSC, pt looked weak, wouldn't want to speak much, although not confused, c/o severe burning pain on neck, not controlled with [id number], ASSESSMENT AND PLAN from on 10/19 De josé miguel acute myelogenous leukemia: The patient presented with an initial white count over 200,000, with over 90% blasts. 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 FISH studies for APL were negative. He received three days of idarubicin from October 11 through October 13, and seven days of infusional leonor-C, completed around midnight last night. White cell count fell from an initial level of 216.8, to the current level of 0.6. He has required transfusion support with Leuko-poor irradiated packed red blood cells and platelets. No indication for transfusion support today. He had initial blood cultures that were positive for Pseudomonas aeruginosa, and has completed 10 days of antibiotic therapy with meropenem, remaining afebrile throughout. Given his stable clinical status, I believe he could be safely discharged to outpatient status, with [facility] for laboratory studies including CBC, differential, platelets, and type and cross. CBC, differential, platelets should be repeated every Tuesday, Tuesday and Tuesday. Please schedule followup with Dr. Balbuena at the [facility] next Tuesday. The patient's IV antibiotics can be discontinued, but I recommend prescriptions as an outpatient for Cipro 500 mg by mouth twice daily and acyclovir 200 mg by mouth three times daily. He was advised to call immediately in the event of fevers or signs of active infection, in which case he would require hospitalization for management of febrile neutropenia. In addition, he was advised to call immediately in the event of severe shortness of breath, bleeding or bruising, which might require further transfusion support. Anticipate repeat bone marrow studies in about two weeks to assess remission status. In the event that he had evidence of residual leukemia, he would be readmitted to the hospital for re-induction chemotherapy. If he is in remission, then future consolidation chemotherapy would be arranged. Review of Systems: Pertinent positives as noted in history of present illness. All other systems were reviewed and are negative Allergies Coded Allergies: atenolol (Verified Allergy, Severe, hives, 10/08/16) doxycycline (Verified Adverse Reaction, Severe, abdominal cramping, ) amlodipine (Verified Adverse Reaction, Intermediate, ankle swelling, ) cetirizine (Verified Adverse Reaction, Intermediate, prostate issues, 10/08) hydrochlorothiazide (Verified Adverse Reaction, Intermediate, headache, ) hydrocodone (Verified Adverse Reaction, Intermediate, upset stomach, ) lisinopril (Verified Adverse Reaction, Intermediate, low sodium, 10/08/16) piroxicam (Verified Adverse Reaction, Intermediate, low iron, 10/08/16) oxycodone (Verified Adverse Reaction, Unknown, causes insomnia, 10/24/16) Home Medications Scheduled Acyclovir (Acyclovir) 200 Mg Capsule 200 MG PO TID Cholecalciferol (Vitamin D3) (Vitamin D3) 4,000 Unit Capsule 4,000 UNIT PO DAILY Ciprofloxacin (Cipro) 500 Mg Tablet 500 MG PO BID Diltiazem ER (Cartia XT) 120 Mg Cap.er.24h 120 MG PO QAM Nystatin (Nystatin) 100,000 Unit/1 Ml Oral.susp 500,000 UNIT PO PCHS Omeprazole (Omeprazole) 20 Mg Capsule.dr 20 MG PO QAM Phosphorus (Phospha 250 Neutral Tablet) 250 Mg Tablet 250 MG PO BID Posaconazole (Noxafil) 200 Mg/5 Ml Oral.susp 200 MG PO TIDWM Scheduled PRN Acetaminophen (Tylenol Arthritis) 650 Mg Tablet.er 1,300 MG PO TID PRN PRN For Pain Clobetasol Propionate (Clobetasol Propionate) 15 Gm Oint...g. 1 APPLIC TOPICAL DAILY PRN PRN scalp itching Sildenafil Citrate (Viagra) 100 Mg Tablet 50 MG PO DAILY PRN PRN for sexual activity PMH PAST MEDICAL HISTORY: 1. Hypertension. 2. Diverticulitis. 3. Status post spine surgery for arthritis. 4. Hyponatremia secondary to hydrochlorothiazide. 5. Status post bilateral hip replacements. 6. History of BPH. 7. Possible distant history of herpes lesions on the lips. 8. AML, dxed in 10/12/2016 SOCIAL HISTORY: former smoker, ETOH-occ FAMILY HISTORY: Negative for tuberculosis in his parents, grandparents or siblings. He has never been exposed to anyone with TB. Of note, his has had recurrent herpes labialis. Social History Hx Alcohol Use: No Hx Substance Use: No Smoking Status: Former Smoker Exam Vital Signs Vital Sign - Last Date Time Temp Pulse Resp B/P Pulse Ox O2 Delivery O2 Flow Rate FiO2 10/24/16 09:32 36.7 85 20 160/71 100 Room Air Exam Distressed due to pain Erythema around anterior neck, tender/warm, no fluctuance, no meningismus, PERRLA, AAOX3, no rash throughout, no oral thrush RRR, nl s1, s2 no mrg CTAB, no w,c S,ND,NT,normoactive BS+ warm, no edema, pulses 2/2 LUE, PICC in place, non-tender Lab and Diagnostics Result Diagram: 10/24/1662910/24/16 0630 X-Rays, CTs and MRIs PROCEDURE: X-RAY CHEST ONE VIEW, PORTABLE ([id number]) INDICATIONS: 71 year-old male with neutropenic fevers. TECHNIQUE: One view of the chest was acquired. COMPARISON: None. FINDINGS: Surgical changes and devices: Right PICC is present, with tip in the upper superior vena cava. Lungs and pleura: No pleural effusions or pneumothorax. Lungs are clear. Mediastinum: Mediastinal contours appear normal. Heart size is normal. There is aortic atherosclerosis. Bones and chest wall: No suspicious bony lesions. Overlying soft tissues appear unremarkable. IMPRESSION: No acute cardiopulmonary disease. Dictated by: Shawn Marcial M.D. on 10/24/2016 at 7:29 Approved by: Shawn Marcial M.D. on 10/24/2016 at 7:29 Additional Diagnostics: PROCEDURE: US SOFT TISSUE OF HEAD OR NECK SONOGRAM INDICATIONS: 71 year-old male with neutropenic fevers and neck swelling. Assess for abscess. TECHNIQUE: Real-time scanning was performed of the neck region of interest, with image documentation. COMPARISON: None. FINDINGS: In the region of interest, no fluid collections identified to suggest abscess. Normal-appearing sternocleidomastoid muscles are identified. No enlarged lymph nodes identified. IMPRESSION: No sonographic evidence for neck abscess. Dictated by: Shawn Marcial M.D. on 10/24/2016 at 8:02 Approved by: Shawn Marcial M.D. on 10/24/2016 at 8:03 Assessment & Plan 71 yo M w/ recent hospitalization 10/08-10/19 with newly diagnosed AML s/p induction ctx, pseudomonas bacteremia p/w fever with neck started 2days ago. acute, active #sepsis, SIRS+ fever/severe leukopenia/tachycardia, possible source:neck soft tissue infection, probable atypical fungal/viral infection, persistent pseudomonas bacteremia. unlikely other infectious source-PICC seemed okay on exam, no oral thrush, CXR/UA unremarkable. no GI/respiratory sx. no signs of KLYSTROM TUBE TESTER infection. -continue vancomycin, meropenem 2g q8h, increased acyclovir to 800 bid, continue ppx dose of home antifungals -awaits infectious w/u BCX, galactomannan Ag, will send one set BCX from PICC, low threshold to discontinue PICC. -serial neck exam to monitor response -tylenol for fever -will try fentanyl given multiple opioid allergies -trends fever curve, procalcitonin. -IVF NS 100cc/hr #chronic [id number], thought to be secondary to hydrochlorothiazide, POA, currently not on HCTZ and mildly worsened, likely also component of recent chemo , stable, continue with NS, trends sodium q12h. #chronic anemia, POA, h/h mildly dropped from 2days ago <1g/dl, trends for now, target >7 transfuse as needed #thrombocytopenia, POA, [id number], no overt signs of bleeding, will give 1unit plt today #AML, dxed in 10/12/2016, appreciate Oncology input. chronic, stable #Hypertension, will resume dilt likely tomorrow if HD remains stable dispo:Patient will be admitted with inpatient status with expectation of inpatient therapy for more than 2 midnights diet:regular as tolerate dvt ppx:SCD Full Code Time spent 65min Eben Lucio MD Oct 24, 2016 11:07
[2016-10-24] MEDS: 0.9% Sodium Chloride 1,000 ML IV SCH ×2 (13:05→21:40)
[2016-10-24] MEDS ORDERED: Meropenem Inj 1,000 MG in IV Premix 1 EACH IV ONE (13:40)
--- NOTE | 2016-10-24 14:42 | PCM.CONPHA ---
Subjective Date of Service: Oct 24, 2016 Vancomycin dosing Reason for Pharmacy Consult: Vancomycin Dosing Assessment/Plan Assessment/Plan Patient is a 71 y.o. male receiving vancomycin for febrile neutropenia. Concurrent abx include: meropenem, acyclovir, and posaconazole. WBC count is 0.2 and the patient is febrile. Patient is 78 kg, 71 inches tall with a SCr of 0.47 mg/dL-- estimated CrCl of > 90 mL/min. Based on patient parameters vancomycin will be loaded with 1500mg and then dosed at 1250mg q12h with a target trough of 15-20 mcg/mL. Trough will be drawn prior to the 4th dose on 10/25 @ 2000. Pharmacy will follow daily and adjust as appropriate. Thank you for the consult in the care of this patient. RWErlin Fitzgerald PharmD Oct 24, 2016 14:42
[2016-10-24] MEDS: Meropenem Inj 2,000 MG in 0.9% Sodium Chloride 100 ML IV SCH ×2 (15:20→22:34)
[2016-10-24] MEDS: Nystatin 100,000 Unit/mL 59 mL Suspension PO SCH ×3 (15:38→19:46)
[2016-10-24] MEDS: POSACONAZOLE PO SCH ×2 (15:38→19:45)
[2016-10-24] MEDS ORDERED: 0.9% Sodium Chloride 250 ML ONE (16:07)
--- NOTE | 2016-10-24 16:14 | PROG NOTE ---
[address] [address] PROGRESS NOTE PATIENT: JEFF AMEZCUA : 1945 MR#: [id number] ADMIT: 10/24/2016 JOB ID: [id number] DATE: 10/24/2016 DIAGNOSIS: 1. Acute myeloid leukemia, status post induction chemotherapy. 2. Current admission for acute neutropenic infection with cellulitis of neck. HISTORY OF PRESENT ILLNESS: The patient is a 71-year-old gentleman with acute myeloid leukemia, normal cytogenetics, who recently received induction 7 + 3 chemotherapy. He was admitted to hospital from October 08 to October 19 for that, received his induction chemotherapy, and received IV antibiotic therapy for Pseudomonas bacteremia. This was demonstrated in two of four positive blood cultures on October 08. It was treated with 10-14 days of IV meropenem and at the time of discharge he was sent home on ciprofloxacin 500 mg b.i.d. He did well for few days after discharge although continued to have low-grade fever. Yesterday (Tuesday morning), he shaved his face and apparently irritated his neck, and within few hours developed itching that progressed to intense irritation later in the day, and the area became quite tender, red, and somewhat swollen. His symptoms are slightly worse in left side of neck as compared to right. His low-grade temperature also andrew and his contacted me twice overnight, and eventually was sent back to emergency department, and he has been admitted. His T-max is 102.5. He has been started on IV antibiotics with vancomycin and meropenem, but so far the pain, tenderness and erythema in his neck has not subsided yet. Currently on exam, he is somewhat lethargic because of recent morphine injection. Blood pressure 160/71, heart rate 85, current temperature 36.7 but it was 39.1 earlier in the day. O2 saturation is 100% on room air. HEENT: Normal without pharyngitis. Neck is supple, without palpable adenopathy, but the skin across lower anterior neck is swollen, red, and tender to touch, left worse than right. LABORATORY DATA: WBC count 200, hemoglobin 7.9, platelet count 18,000. ESR 52 and chemistry is normal except borderline bilirubin 1.3. Procalcitonin is borderline positive at 0.08. Neck ultrasound is negative for sonographic evidence of abscess. IMPRESSION AND RECOMMENDATIONS: 1. Acute cellulitis of lower anterior neck, probable due to shaving injury in a neutropenic patient. I agree with choice of vancomycin and meropenem, but I do not think IV acyclovir which has been initiated for this patient is indicated. The process appears to be bacterial cellulitis and not viral. I would recommend stopping IV acyclovir and resuming prophylactic oral dose of either valacyclovir or acyclovir. I also would recommend changing posiconazole to prophylactic dose of 300 mg once daily. 2. Acute myeloid leukemia, status post induction chemotherapy. Bone marrow biopsy will need to be done for assessment of response in the next 1-2 weeks. 3. The patient appears to have poor tolerance to morphine. I recommend tramadol for pain control. Dr. Balbuena will follow up tomorrow morning.
[2016-10-24] MEDS ORDERED: Meropenem Inj 1,000 MG in IV Premix 1 EACH IV SCH (16:30)
[2016-10-24] MEDS: Acyclovir 200 mg Capsule PO SCH (19:46)
[2016-10-24] MEDS: Vancomycin Inj 1,250 MG in 0.9% Sodium Chloride 250 ML IV SCH (19:46)
[2016-10-24] MEDS ORDERED: PHOSPHA PO SCH (20:30)
[2016-10-25] VITALS (15 sets, daily range): BP systolic 115–182; BP diastolic 59–75; PULSE 68–87; RESP 16–18; O2SAT 94–99
[2016-10-25 05:48] LABS: Magnesium 1.6 mg/dL (1.6-2.6); Phosphorus 2.5 mg/dL (2.5-4.9)
[2016-10-25 06:09] LABS: Mean Corpuscular Hemoglobin 29.5 pg (27.0-35.0); Mean Corpuscular Volume 86.5 fL (81-100)
[2016-10-25 06:10] LABS: Platelet Count 7 bil/L (150-400)
[2016-10-25] MEDS: Meropenem Inj 2,000 MG in 0.9% Sodium Chloride 100 ML IV SCH ×3 (07:14→22:55)
[2016-10-25] MEDS: 0.9% Sodium Chloride 1,000 ML IV SCH ×2 (07:40→20:02)
[2016-10-25] MEDS ORDERED: Potassium Chloride 20 mEq/15 mL 15mL Oral Soln PO ONE (07:50)
[2016-10-25] MEDS ORDERED: Magnesium Sulf 2 Gm/50mL Water 2 GM in IV Premix 1 EACH IV ONE (07:50)
[2016-10-25] MEDS ORDERED: Hydrocortisone 50 mg/mL 2 mL Inj IV ONE (08:05)
[2016-10-25] MEDS ORDERED: 0.9% Sodium Chloride 250 ML ONE ×4 (08:30→16:18)
[2016-10-25] MEDS: Vancomycin Dose per Pharmacist XX SCH (08:30)
[2016-10-25] MEDS: Pantoprazole 20 mg ER24 Tablet PO SCH (08:48)
[2016-10-25] MEDS: Diltiazem CD 120 mg ER24 Capsule PO SCH (08:48)
[2016-10-25] MEDS: Acyclovir 200 mg Capsule PO SCH ×3 (09:06→20:06)
[2016-10-25] MEDS: POSACONAZOLE PO SCH ×3 (09:10→17:30)
[2016-10-25] MEDS: Nystatin 100,000 Unit/mL 59 mL Suspension PO SCH ×4 (09:11→22:55)
--- NOTE | 2016-10-25 09:58 | PCM.PNMED ---
Subjective Date of Service Oct 25, 2016 Subjective pt felt much better today, less burning on neck, less warm fever trending down, last temp 5pm 37.6 yesterday switched acyclovir to ppx dose per tolerating puree diet, wiling to advance, no dysphagia/odynophasia noticed trending down h/h, plt, blood/PLT ordered this AM by night hospitalist Exam Vital Signs Vital Sign - Last Date Time Temp Pulse Resp B/P Pulse Ox O2 Delivery O2 Flow Rate FiO2 10/25/16 09:20 76 10/25/16 09:10 36.8 16 126/68 10/25/16 05:15 97 Room Air Intake and Output 10/24/16 10/24/16 10/25/16 Cumulative From/Thru 15:00 23:00 07:00 10/24/16 06:05 - 10/25/16 05:15 Intake Total 1000 ml 1654 ml 500 ml 3154 ml Output Total 900 ml 1750 ml 2650 ml Balance 1000 ml 754 ml -1250 ml 504 ml Intake Oral 1400 ml 500 ml 1900 ml IV Total 1000 ml 30 ml 1030 ml Platelets 224 ml 224 ml Output Urine Total 900 ml 1750 ml 2650 ml Exam comfortable Erythema around anterior neck, tender/warm, no fluctuance --improving today no meningismus, PERRLA, AAOX3, no rash throughout, no oral thrush RRR, nl s1, s2 no mrg CTAB, no w,c S,ND,NT,normoactive BS+ warm, no edema, pulses 2/2 LUE, PICC in place, non-tender IVs and Medications Medications Reviewed: Medications were reviewed in detail Lab and Diagnostics Result Diagram: 10/25/1651410/25/1615 X-Rays, CTs and MRIs PROCEDURE: X-RAY CHEST ONE VIEW, PORTABLE ([id number]) INDICATIONS: 71 year-old male with neutropenic fevers. TECHNIQUE: One view of the chest was acquired. COMPARISON: None. FINDINGS: Surgical changes and devices: Right PICC is present, with tip in the upper superior vena cava. Lungs and pleura: No pleural effusions or pneumothorax. Lungs are clear. Mediastinum: Mediastinal contours appear normal. Heart size is normal. There is aortic atherosclerosis. Bones and chest wall: No suspicious bony lesions. Overlying soft tissues appear unremarkable. IMPRESSION: No acute cardiopulmonary disease. Dictated by: Shawn Marcial M.D. on 10/24/2016 at 7:29 Approved by: Shawn Marcial M.D. on 10/24/2016 at 7:29 Additional Diagnostics PROCEDURE: US SOFT TISSUE OF HEAD OR NECK SONOGRAM INDICATIONS: 71 year-old male with neutropenic fevers and neck swelling. Assess for abscess. TECHNIQUE: Real-time scanning was performed of the neck region of interest, with image documentation. COMPARISON: None. FINDINGS: In the region of interest, no fluid collections identified to suggest abscess. Normal-appearing sternocleidomastoid muscles are identified. No enlarged lymph nodes identified. IMPRESSION: No sonographic evidence for neck abscess. Dictated by: Shawn Marcial M.D. on 10/24/2016 at 8:02 Approved by: Shawn Marcial M.D. on 10/24/2016 at 8:03 Assessment & Plan 71 yo M w/ recent hospitalization 10/08-10/19 with newly diagnosed AML s/p induction ctx, pseudomonas bacteremia p/w fever with neck started 2days ago. acute, active #sepsis, SIRS+ fever/severe leukopenia/tachycardia, possible source:neck soft tissue infection with micro injury from shaving, unlikely other infectious source-PICC seemed okay on exam, no oral thrush, CXR/UA unremarkable. no GI/ respiratory sx. no signs of SHIRT OPERATOR infection. -continue vancomycin, meropenem 2g q8h for now, continue ppx dose acyclovir to 200 tid, continue ppx dose of home antifungals, likely d/c meropenem if BCX neg -awaits infectious w/u BCX, galactomannan Ag, BCX from PICC, -serial neck exam to monitor response -tylenol for fever -continue fentanyl prn given multiple opioid allergies -trends fever curve, procalcitonin. -IVF NS 100cc/hr #chronic [id number], thought to be secondary to hydrochlorothiazide, POA, currently not on HCTZ and mildly worsened, likely also component of recent chemo , stable, continue with NS, trends sodium q12h. #chronic anemia, POA, h/h mildly dropped from 2days ago <1g/dl, trends for now, target >7 transfuse as needed #thrombocytopenia, POA, no overt signs of bleeding, s/p 1unit 10/24, will give 1more unit today plt<10k #AML, dxed in 10/12/2016, appreciate Oncology input. chronic, stable #Hypertension, will resume dilt likely tomorrow if HD remains stable dispo:likely prolonged 4-5more days on iv abx diet:regular as tolerate dvt ppx:SCD Full Code VTE Mechanical Devices: Intermittant Pneumatic CD Time spent 35min Eben Lucio MD Oct 25, 2016 09:58
[2016-10-25] MEDS: Vancomycin Inj 1,250 MG in 0.9% Sodium Chloride 250 ML IV SCH (12:47)
[2016-10-25] MEDS ORDERED: Sodium Chloride LOK Flush 10 mL Syringe IVFLUSH PRN ×2 (17:40)
--- NOTE | 2016-10-25 18:09 | PROG NOTE ---
[address] [address] PROGRESS NOTE PATIENT: JEFF AMEZCUA : 1945 MR#: [id number] ADMIT: 10/24/2016 JOB ID: [id number] DATE: 10/25/2016 SUBJECTIVE: The patient is a 71-year-old gentleman, who recently completed induction chemotherapy for newly-diagnosed acute myelogenous leukemia. Initial white blood cell count was over 200,000. He received seven days of Mariaa-C and three days of idarubicin. He has become transfusion dependent and neutropenic. He was admitted over the weekend when he developed pain and swelling in the left neck with associated fever up to 39.1 degrees centigrade on October 24, 2016. Blood cultures over the weekend have been negative to date. He was started on broad-spectrum antibiotic coverage with meropenem, posaconazole, acyclovir, and vancomycin. He is feeling quite a bit better this morning. The area over his neck appeared to be involved by cellulitis, possibly induced by his electric razor. This area is much less inflamed today. He feels good. He has had some difficulty swallowing, which is improving. He anticipates a swallowing evaluation later today. OBJECTIVE: Vitals T 36.9, P 87, R 18, BP 126/66. O2 saturation 97% on room air. HEENT: Conjunctivae pale. Mucous membranes moist. No oral lesions. Nodes: No adenopathy in the neck or axilla. Chest: Clear. Cardiac exam: Regular rate and rhythm with normal S1, S2. Abdomen: Soft, nontender. Normoactive bowel tones. No splenomegaly or masses. Extremities: Trace lower extremity edema, 1+ distal pulses. No calf tenderness. LABORATORIES: WBC 0.1, hemoglobin 5.9, hematocrit 17.3%, platelets 7000. Sodium 125, potassium 3.3, BUN 10, creatinine 0.48, glucose 104. AST 10, ALT 21, alkaline phosphatase 82. ASSESSMENT AND PLAN: Active cellulitis with febrile neutropenia in the setting of recent induction chemotherapy for acute myelogenous leukemia: Agree with broad-spectrum antibiotics with meropenem, vancomycin, posaconazole, and acyclovir. Await results of recent cultures. Anticipate further input from Infectious Disease and the hospitalist team. Hematologic parameters show profound cytopenias. Type and cross. Transfuse 2 units irradiated packed red blood cells and 2 units irradiated platelets today after premedication with Tylenol 650 mg by mouth and hydrocortisone 50 mg IV. Avoid use of G-CSF, as this could stimulate a leukemic clone. We will recommend daily CBC, differential, and platelets, and correction of electrolyte abnormalities. The patient is likely to remain neutropenic for the next two weeks. As he begins recovery, anticipate repeat bone marrow studies to assess remission status. Thank you very much for allowing us to participate in your patient's care.
[2016-10-26] VITALS (15 sets, daily range): BP systolic 112–151; BP diastolic 61–81; PULSE 59–80; RESP 15–18; O2SAT 95–100
[2016-10-26] MEDS ORDERED: Vancomycin Inj 1,250 MG in 0.9% Sodium Chloride 250 ML IV SCH (00:30)
[2016-10-26] MEDS ORDERED: Vancomycin Inj 500 MG in 0.9% Sodium Chloride 250 ML IV ONE (01:30)
--- NOTE | 2016-10-26 01:52 | PCM.PHAPRO ---
Progress Date of Service: Oct 26, 2016 Vancomycin dosing Vancomycin dosing per pharmacy Indication: febrile neutropenia Vancomycin trough goal: 15-20 Labs: Weight: 78 kg Height: 180.34 cm SCr: 0.48 WBC: 0.1 Trough: 6.6 Trough seems unusually low -- suspect lab error. Dose due at 1230 has already been hung so unable to redraw trough. Since patient is high risk with febrile neutropenia, will give additional loading dose now. As patient is already receiving vanco 1250 mg, will add another 500 mg for total dose of 1750 mg now. Redraw trough prior to NEXT dose (trough scheduled for 10/26 @1200) to ensure that trough is trending appropriately. Pharmacy to continue to monitor and dose vancomycin. Thank you, Leif Jones Pharmacist Leif Jones Oct 26, 2016 01:52
[2016-10-26] MEDS: 0.9% Sodium Chloride 1,000 ML IV SCH ×3 (03:40→23:40)
[2016-10-26 05:31] LABS: Mean Corpuscular Hemoglobin 29.3 pg (27.0-35.0); Mean Corpuscular Volume 85.1 fL (81-100)
[2016-10-26 05:32] LABS: Platelet Count 20 bil/L (150-400)
[2016-10-26 05:45] LABS: Magnesium 1.9 mg/dL (1.6-2.6); Phosphorus 1.4 mg/dL (2.5-4.9)
[2016-10-26] MEDS: Meropenem Inj 2,000 MG in 0.9% Sodium Chloride 100 ML IV SCH ×3 (07:53→23:22)
[2016-10-26] MEDS ORDERED: Hydrocortisone 50 mg/mL 2 mL Inj IV PRN (08:15)
--- NOTE | 2016-10-26 08:17 | PROG NOTE ---
[address] [address] PROGRESS NOTE PATIENT: JEFF AMEZCUA : 1945 MR#: [id number] ADMIT: 10/24/2016 JOB ID: [id number] DATE: 10/26/2016 SUBJECTIVE: The patient is a 71-year-old gentleman, hospitalized with acute cellulitis of the neck. He has febrile neutropenia in the setting of pancytopenia from recent induction chemotherapy for acute myelogenous leukemia. He is on broad-spectrum antibiotic coverage with meropenem 2 g IV q.8 h., vancomycin 1250 mg IV q.12 h., acyclovir 200 mg p.o. t.i.d., and posaconazole 200 mg p.o. t.i.d. He has been afebrile, and blood cultures from admission were negative. He had pain and swelling in the neck. Ultrasound of the neck on October 24, 2016, showed no sonographic evidence of neck abscess. In addition, chest film showed no acute cardiopulmonary disease. He complains of worsening discomfort in the neck and a widening area of erythema on his upper chest. He slept poorly last night. OBJECTIVE: Vitals: T 36.8, P 76, R 17, BP 137/65, O2 saturation 97% on room air. Weight 81.2 kg (up 3 kg from admission). HEENT. Conjunctivae pale. Mucous membranes moist. No oral lesions. Nodes: He has some shotty adenopathy in the neck. No axillary or inguinal lymphadenopathy. Neck: He has a couple areas of thickening in both the right and left neck, worrisome for abscess formation, surrounded by deep erythema and warmth. Mild erythema extends down to the upper chest. Chest: Clear. No wheezes or crackles. Cardiac exam: Regular rate and rhythm with normal S1, S2. Abdomen: Soft, nontender. Normoactive bowel tones. No splenomegaly or masses. Extremities: Trace pedal edema. 2+ distal pulses. No calf tenderness. LABORATORIES: WBC 0.2, hemoglobin 7.3, hematocrit 21.2%, platelets 20,000. Sodium 130, potassium 3.5, BUN 13, creatinine 0.46, glucose 116. AST 10, ALT 20, alkaline phosphatase 84. Calcium 7.6, albumin 2.8. ASSESSMENT AND PLAN: Cellulitis of the neck and upper chest in the setting of pancytopenia from recent induction chemotherapy for acute myelogenous leukemia: Blood cultures from admission have been negative. Nonetheless, cellulitis appears to be poorly controlled. Continue meropenem, vancomycin, acyclovir and posaconazole. Await input from Infectious Disease. He had some response to transfusion support yesterday. Given his profound cytopenias and likelihood of worsening anemia/thrombocytopenia, arrange transfusion today with 2 units irradiated packed red blood cells and 2 units irradiated platelets after premedication with Tylenol 650 mg by mouth and hydrocortisone 50 mg IV. As always, avoid G-CSF in this setting given the risk of stimulation of a leukemic clone. Monitor daily CBC, differential, and platelets. Correct electrolyte deficiencies. Address nutritional status, as his albumin is quite depleted. Monitor fluid status, as he has gained about 3 kg since admission. During his prior hospitalization, he required diuresis. The patient's white blood cell count is not likely to recover for another 10-14 days. During that time, I would not discontinue antibiotics, as the risk of overwhelming sepsis in the setting of neutropenia is significant.
[2016-10-26] MEDS: Pantoprazole 20 mg ER24 Tablet PO SCH (08:24)
[2016-10-26] MEDS: POSACONAZOLE PO SCH ×3 (08:25→17:57)
[2016-10-26] MEDS: Nystatin 100,000 Unit/mL 59 mL Suspension PO SCH ×4 (08:25→21:01)
[2016-10-26] MEDS: Acyclovir 200 mg Capsule PO SCH ×3 (08:25→21:01)
[2016-10-26] MEDS: Diltiazem CD 120 mg ER24 Capsule PO SCH (08:25)
[2016-10-26] MEDS: Vancomycin Dose per Pharmacist XX SCH (08:30)
[2016-10-26 10:46] LABS: BASOPHILS % (AUTO) 0 % (0-3); EOSINOPHILS % (AUTO) 0 % (0-5); MONOCYTES % (AUTO) 9 % (4-12); NEUTROPHILS % (AUTO) 0 % (40-74)
[2016-10-26] MEDS ORDERED: 0.9% Sodium Chloride 250 ML ONE ×4 (11:05→20:37)
[2016-10-26] MEDS ORDERED: Vancomycin Serum Trough XX ONE ×2 (12:00)
--- NOTE | 2016-10-26 14:07 | PCM.PNMED ---
Subjective Date of Service Oct 26, 2016 Subjective pt was afebrile, clinically stable overnight noticed, spreading erythema on anterior chest from neck, pain is getting better on neck, no new discharge/ulcer, rash throughout, no cough, sputum, PICC dressed by IV nurse, no signs of infection noticed. eating with relatively good appetite, ID is aware of the case also saw patient this AM Exam Vital Signs Vital Sign - Last Date Time Temp Pulse Resp B/P Pulse Ox O2 Delivery O2 Flow Rate FiO2 10/26/16 12:29 36.7 63 16 112/61 10/26/16 10:19 99 Room Air Intake and Output 10/25/16 10/25/16 10/26/16 Cumulative From/Thru 15:00 23:00 07:00 10/24/16 06:05 - 10/26/16 06:07 Intake Total 2159 ml 1877 ml 3499 ml 76502 ml Output Total 375 ml 750 ml 3775 ml Balance 2159 ml 1502 ml 2749 ml 6914 ml Intake Oral 400 ml 2000 ml 4300 ml IV Total 1659 ml 1177 ml 1499 ml 5365 ml Packed Cells 300 ml 300 ml Platelets 500 ml 724 ml Output Urine Total 375 ml 750 ml 3775 ml # Bowel Movements 2 0 2 Exam comfortable Erythema around anterior neck, tender/warm, no fluctuance, more erythema on anterior chest-nontender/warm no meningismus, PERRLA, AAOX3, no rash throughout, no oral thrush RRR, nl s1, s2 no mrg CTAB, no w,c S,ND,NT,normoactive BS+ warm, no edema, pulses 2/2 LUE, PICC in place, non-tender IVs and Medications Medications Reviewed: Medications were reviewed in detail Lab and Diagnostics Result Diagram: 10/26/16 0500 10/26/16 0500 X-Rays, CTs and MRIs PROCEDURE: X-RAY CHEST ONE VIEW, PORTABLE ([id number]) INDICATIONS: 71 year-old male with neutropenic fevers. TECHNIQUE: One view of the chest was acquired. COMPARISON: None. FINDINGS: Surgical changes and devices: Right PICC is present, with tip in the upper superior vena cava. Lungs and pleura: No pleural effusions or pneumothorax. Lungs are clear. Mediastinum: Mediastinal contours appear normal. Heart size is normal. There is aortic atherosclerosis. Bones and chest wall: No suspicious bony lesions. Overlying soft tissues appear unremarkable. IMPRESSION: No acute cardiopulmonary disease. Dictated by: Shawn Marcial M.D. on 10/24/2016 at 7:29 Approved by: Shawn Marcial M.D. on 10/24/2016 at 7:29 Additional Diagnostics PROCEDURE: US SOFT TISSUE OF HEAD OR NECK SONOGRAM INDICATIONS: 71 year-old male with neutropenic fevers and neck swelling. Assess for abscess. TECHNIQUE: Real-time scanning was performed of the neck region of interest, with image documentation. COMPARISON: None. FINDINGS: In the region of interest, no fluid collections identified to suggest abscess. Normal-appearing sternocleidomastoid muscles are identified. No enlarged lymph nodes identified. IMPRESSION: No sonographic evidence for neck abscess. Dictated by: Shawn Marcial M.D. on 10/24/2016 at 8:02 Approved by: Shawn Marcial M.D. on 10/24/2016 at 8:03 Assessment & Plan 71 yo M w/ recent hospitalization 10/08-10/19 with newly diagnosed AML s/p induction ctx, pseudomonas bacteremia p/w fever with neck started 2days ago. acute, active #sepsis, SIRS+ fever/severe leukopenia/tachycardia, possible source:neck soft tissue infection with micro injury from shaving, possibly staph or strep, unlikely other infectious source-PICC seemed okay on exam, no oral thrush, CXR/ UA unremarkable. no GI/respiratory sx. 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 -clinically improved with stable hemodynamics, diffuse erythema is likely from bacterial debri responding to abx. -appreciate ID input regarding abx of choice -started vancomycin, meropenem 2g q8h, ppx dose acyclovir to 200 tid and antifungals, -awaits infectious w/u BCX, galactomannan Ag, BCX from PICC, -serial neck exam to monitor response -tylenol for fever -continue fentanyl prn given multiple opioid allergies -trends fever curve, procalcitonin. -IVF NS 100cc/hr #chronic [id number], thought to be secondary to hydrochlorothiazide, POA, currently not on HCTZ and mildly worsened, likely also component of recent chemo , stable, continue with NS, trends sodium q12h. #chronic anemia, POA, h/h mildly dropped from 2days ago <1g/dl, trends for now, target >7 transfuse as needed #thrombocytopenia, POA, no overt signs of bleeding, s/p 1unit 10/24, 10/25, ordered more units per Oncology as plt20k #AML, dxed in 10/12/2016, appreciate Oncology input. chronic, stable #Hypertension,resumed dilt as HD remains stable dispo:likely prolonged, cannot determine the course yet diet:regular as tolerate dvt ppx:SCD Full Code VTE Mechanical Devices: Intermittant Pneumatic CD Time spent 35min Eben Lucio MD Oct 26, 2016 14:07
[2016-10-26] MEDS: Vancomycin Inj 1,500 MG in 0.9% Sodium Chloride 500 ML IV SCH (14:16)
[2016-10-26] MEDS: Sodium Chloride NAS 45 mL Spray NASAL PRN (15:57)
[2016-10-26] MEDS: LORazepam 1 mg Tablet PO PRN (21:01)
[2016-10-27] VITALS (9 sets, daily range): BP systolic 136–179; BP diastolic 64–77; PULSE 65–78; RESP 16–20; O2SAT 97–99
--- NOTE | 2016-10-27 00:03 | CONS ---
[address] [address] CONSULTATION REPORT PATIENT: JEFF AMEZCUA : 1945 MR#: [id number] ADMIT: 10/24/2016 JOB ID: [id number] DATE OF SERVICE: 10/26/[address] Lucio for this timely consult. REASON FOR CONSULTATION: Febrile neutropenia with neck infection. HISTORY OF PRESENT ILLNESS: The patient is a 71-year-old gentleman who is well known to me from an admission which started back on October 08. At that time, the patient had just been diagnosed with acute leukemia with a white blood count of over 200,000; even having some vague symptoms which were thought to be secondary to possibly a sinus infection and received some antibiotics prior to his CBC which showed that he had acute leukemia. The patient had some significant fevers back in mid September and subsequently was admitted here of course with the acute leukemia to start chemotherapy. At that time, he was found to have positive blood cultures for Pseudomonas, as well as some degree of sinusitis. I saw the patient in consultation on October 12 and recommended the use of meropenem at high doses as his primary drug for his Pseudomonas sepsis. We also checked herpes simplex antibodies for type 1 and 2 at that time, and found they were negative so I recommended that his acyclovir prophylaxis be dropped as he is not at risk for reactivation of herpes simplex. Also, during that evaluation, I had recommended posaconazole 200 mg suspension every 8 hours for antifungal prophylaxis be continued throughout the initial treatment of his leukemia. I subsequently saw the patient again on October 13 and before I left on vacation on October 15. During the time that I was absent, the patient was felt to have improved sufficiently to be discharged and he was sent out on October 19. At that time, he was sent out with oral posaconazole prophylaxis, as well as Cipro, for treatment of his Pseudomonas sepsis. At the time of discharge, his neutrophil count was suffering right at 0. The patient and his report that during his five days or so at home he did quite well up until approximately October 23, when he started to develop erythema and tenderness around his lower anterior neck bilaterally. This was associated with some low-grade fevers up to about 100.5, and they contacted their oncologist and was recommended they report back to the emergency department on October 24. At that time, in the emergency department he was found to have a much higher fever and the decision was made to readmit him for recrudescent febrile neutropenia with probable anterior neck infection. The patient notes that in addition to the swelling and tenderness around his lower anterior neck, he was actually feeling a bit short of breath and was noting both fever and chills. His further observed that during this period of time he was starting to become confused at times and when he was not confused he was sleeping excessively, which was of great concern to her. Despite the fact he was feeling a bit short of breath, he had no significant cough, with only an occasional dry nonproductive hack, but no sustained coughing. He has had some loose stools since the diagnosis of his acute leukemia but only about a couple loose stools per day, and no nausea or vomiting. Subsequent to his readmission on the , he was placed back on meropenem, as well as vancomycin, and again on acyclovir for reasons that still are not clear. He has improved considerably over the past couple days while receiving the vanc, meropenem, and continuing the posaconazole prophylaxis, as well as the low-dose acyclovir. PAST MEDICAL HISTORY: 1. AML diagnosed last month. 2. Pseudomonas sepsis October 08, 2016. 3. Hypertension. 4. Diverticulitis. 5. Status post lumbar spine surgery five years ago. 6. History of hyponatremia secondary to hydrochlorothiazide. 7. Status post bilateral hip replacements. 8. BPH. SOCIAL HISTORY: The patient is an ex-smoker who has not smoked for many decades. He does not drink significantly and does not use illicit drugs. He took a trip to [place] three years ago and was on an [employer] cruise lately, but otherwise no extensive travel. FAMILY HISTORY: Negative for TB in his parents, grandparents or siblings. REVIEW OF SYSTEMS: Was done in its entirety. The patient does not have any significant headache or change in vision. He does not have significant sore throat, odynophagia or dysphagia. He has had some sinus symptoms but they seemed to have actually improved recently. No stiff neck. He denies sores in the mouth, though his lips have been chapped lately. The patient says he has an occasional dry cough but nothing that is sustained or significant, and no purulence or pleuritic chest pain noted. No substernal chest pain either. He has had up to three loose stools per day the diagnosis of his leukemia two and a half weeks ago. No dysuria, urgency or frequency. He notes his testicles are aching bilaterally and he thinks they are somewhat swollen. He has not had swelling of the scrotum. He does not have pain around his anus when he defecates. He has not had swelling of any of the joints. He has noticed some diffuse weakness which has been progressive. No swelling of the lower extremities. No numbness or unusual tingling in the lower extremities. Remainder of the review of systems is negative. PHYSICAL EXAMINATION: Reveals a mildly ill gentleman sitting up in a chair next to his bed. His temperature is 36.6, pulse 61, respiratory rate 16, blood pressure 126/70. He is alert, oriented, and able to give a good history. His notes that a couple days ago though he was not so alert. Examination of the head: No trauma. Eyes have conjunctival pallor, but without hemorrhage or conjunctivitis. Nose appears normal. No eschar or abnormality. Ears likewise normal. Oral cavity without thrush, pharyngitis, or hairy leukoplakia. The submandibular area is actually benign, as is his lateral neck. The lower anterior neck just above the clavicles is notable for diffuse erythema with a shallow excoriated lesion on either side of the neck at about the insertion of the sternocleidomastoid. The erythema on the lower anterior neck extends down onto the anterior chest about 8 cm below the xiphoid notch. This area blanches and is erythematous, but it is not especially tender, nor is it warm. The patient has full range of motion of his neck. His lungs are clear. Cardiac tones: Regular rate and rhythm without murmur. His abdomen is soft and nontender without organomegaly. There is no distention or ascites. No suprapubic tenderness is present. The patient does not have a Gill catheter. His back is straight and there is a well-healed scar over the lumbar spine. I examined carefully the perianal tissues. There is no evidence of abscess or skin breakdown. I did not of course perform a rectal exam on this very neutropenic gentleman. Examination of scrotum reveals no swelling. I did palpate his testes and they did not appear to be swollen, though the right one is a bit larger than the left. They are moderately tender to palpation bilaterally though, perhaps more so than one would expect in a normal exam. The lower extremities are without evidence of synovitis, edema or cellulitis. He has good strength throughout all four extremities and is able to get up and down from a chair without any difficulty. No focal motor weakness or neuropathy is noted. When he was first admitted on readmitted on October 24, his temperature was 39.1 degrees. He subsequently has defervesced and he has been afebrile now for two days. His pulse is 61, respiratory rate 16, blood pressure 126/70. He has been saturating well on room air. LABORATORIES: White blood count on readmission was 200 and today it is 200 as well, but it is 0% polys as he has essentially 100% lymphocytes in his peripheral smear. Platelets are stable at 20,000, hematocrit is 21, and he is currently receiving a transfusion. Creatinine 0.46, bilirubin 0.9 total. AST and ALT are normal. Albumin 2.8. Procalcitonin 0.08. His blood cultures from readmission are negative. Recall that his prior blood cultures of course grew Pseudomonas and those date back to his diagnosis of leukemia on October 08. IMAGING: Includes ultrasound of the neck on the which shows no evidence for neck abscess. Chest x-ray also done that same day shows no infiltrate. IMPRESSION: This is a patient who was diagnosed with AML back on October 08, which is now approximately 19 days ago. He initially presented with over 200,000 cells in white cells, which are of course largely blasts, and was given chemotherapy. He subsequent developed profound neutropenia with a neutrophil count which is stable at right around 0. He was found to have Pseudomonas sepsis at the very presentation of his AML and that was treated with intravenous meropenem while he was in the hospital and then transitioned to oral Cipro on an outpatient basis. Despite good compliance with the Cipro, as well as prophylactic posaconazole he was sent home with, he developed a bilateral anterior lower neck infection. The patient and his speculate this was due to razor injury and I think this is likely the case. The patient was using an electric razor apparently at home and may have been a little rough on his rather fragile skin, especially given the fact that he had a neutrophil count of 0 at the time. It does not appear in any way that this infection of the lower anterior neck proceeded from any sort of dental infection as his oral cavity is benign and these lesions are really far below that level. Likewise, I see no evidence for upper mediastinitis or any other deeper process, and think this is a fairly superficial infection at this point. The patient is now into his third week of basically having no functional neutrophils and is at very high risk of infections even beyond the Pseudomonas sepsis he had originally in this neck infection. It may be that we simply need to keep him in the hospital now until his neutrophil count recovers as sending him home with a neutrophil count of 0 is quite hazardous, even with the prophylactic antibiotics on board. RECOMMENDATIONS: 1. I would discontinue the acyclovir because it was noted during his recent admission his herpes simplex 1 and 2 serologies are negative. 2. I would continue with the high-dose meropenem, though I am not totally sanguine about it as that is the drug we used before, but it is a reasonable place to start I suppose. 3. I agree completely with the vancomycin he has been receiving intravenously for treatment of what could represent a methicillin-resistant Staphylococcus aureus type infection of the nares. 4. MRSA screen of the nares will be ordered. 5. Will continue to very closely follow this patient with you.
[2016-10-27] MEDS: Vancomycin Inj 1,500 MG in 0.9% Sodium Chloride 500 ML IV SCH ×2 (02:51→15:20)
[2016-10-27 05:46] LABS: Mean Corpuscular Hemoglobin 29.5 pg (27.0-35.0); Mean Corpuscular Volume 84.7 fL (81-100); Platelet Count 43 bil/L (150-400)
[2016-10-27 06:07] LABS: Magnesium 1.8 mg/dL (1.6-2.6); Phosphorus 1.7 mg/dL (2.5-4.9)
[2016-10-27] MEDS: Acyclovir 200 mg Capsule PO SCH (07:49)
[2016-10-27] MEDS: Meropenem Inj 2,000 MG in 0.9% Sodium Chloride 100 ML IV SCH ×3 (08:01→22:57)
[2016-10-27] MEDS: 0.9% Sodium Chloride 1,000 ML IV SCH ×2 (08:01→19:40)
[2016-10-27] MEDS: Diltiazem CD 120 mg ER24 Capsule PO SCH (08:02)
[2016-10-27] MEDS: Pantoprazole 20 mg ER24 Tablet PO SCH (08:02)
[2016-10-27] MEDS: Nystatin 100,000 Unit/mL 59 mL Suspension PO SCH ×4 (08:03→22:56)
[2016-10-27] MEDS: POSACONAZOLE PO SCH ×3 (08:03→17:38)
[2016-10-27] MEDS: Vancomycin Dose per Pharmacist XX SCH (08:04)
--- NOTE | 2016-10-27 09:22 | PCM.PHAPRO ---
Progress Date of Service: Oct 26, 2016 Vancomycin dosing Vancomycin dosing per pharmacy Indication: febrile neutropenia Vancomycin trough goal: 15-20 Labs: Weight: 78 kg Height: 180.34 cm SCr: 0.48 Trough seems unusually low -- suspect lab error. Dose due at 0030 has already been hung so unable to redraw trough. Since patient is high risk with febrile neutropenia, will give additional loading dose now. As patient is already receiving vanco 1250 mg, will add another 500 mg for total dose of 1750 mg now. Second trough draw @1200 on 10/26/16 which was still low at 8.1. Will increase dose to 1500 mg q12h with the next trough draw on 10/27/16 @1400 prior to 1430 dose. Pharmacy to continue to monitor and dose vancomycin. Thank you, Cher Virk PharmD Oct 27, 2016 09:22
--- NOTE | 2016-10-27 09:57 | PROG NOTE ---
[address] [address] PROGRESS NOTE PATIENT: JEFF AMEZCUA : 1945 MR#: [id number] ADMIT: 10/24/2016 JOB ID: [id number] DATE: 10/27/2016 SUBJECTIVE: The patient is a 71-year-old gentleman hospitalized with cellulitis of the neck in the setting of febrile neutropenia and pancytopenia from recent induction chemotherapy for acute myelogenous leukemia. He is on broad-spectrum antibiotic coverage with meropenem and vancomycin. He has been afebrile. Areas of erythema over the neck and upper chest are beginning to subside slightly he believes. He is swallowing better. He still feels a bit weak. He received transfusion yesterday with 2 units irradiated packed red blood cells and 2 units irradiated platelets. OBJECTIVE: Vitals: T 36.5, P 69, R 18, BP 151/73, O2 saturation 97% on room air. HEENT: Conjunctivae pink. Mucous membranes moist. No significant oral lesions. Chest: Clear. Cardiac examination: Regular rate and rhythm. Abdomen: Soft, nontender. Extremities: 1+ lower extremity edema. Skin: Erythema over the neck bilaterally extends onto the upper chest, but has decreased in dimension by about 6 cm since yesterday. He has an area of fluctuance in the neck bilaterally, which are warm and tender. LABORATORIES: WBC 0.4, hemoglobin 8.7, hematocrit 25%, platelets 43,000. Sodium 133, potassium 3.3, BUN 15, creatinine 0.4, glucose 99, AST 16, ALT 29, alkaline phosphatase 87. ASSESSMENT AND PLAN: Cellulitis of the neck and upper chest in the setting of pancytopenia from recent induction chemotherapy for acute myelogenous leukemia: Blood cultures from admission show no growth at two days. Nasal swab for MRSA screening is pending. Appreciate input from Dr. Hackett regarding antibiotic coverage. Continue meropenem and vancomycin. Acyclovir could be discontinued, as previous cultures were negative. No indication for transfusion support today. White blood cell count is rising. Although this could be an encouraging recovery from neutropenia, I am concerned with his early recovery, as this could indicate residual leukemia. For now, continue to monitor. Once his absolute neutrophil count is above 1000, anticipate repeat marrow studies to assess for remission status. If he is not in complete remission, we would proceed immediately to re-induction chemotherapy with an additional seven days of SIMÓN-C and three days of idarubicin. Continue to monitor nutritional status, as albumin is quite decreased. This may be contributing to his edema, which will be addressed by the hospitalist team.
--- NOTE | 2016-10-27 10:32 | PROG NOTE ---
[address] [address] PROGRESS NOTE PATIENT: JEFF AMEZCUA : 1945 MR#: [id number] ADMIT: 10/24/2016 JOB ID: [id number] DATE: 10/27/2016 INFECTIOUS DISEASE FOLLOWUP NOTE: REASON FOR FOLLOWUP: Neck soft tissue infection in a patient with AML and absolute neutropenia. INTERVAL HISTORY: The patient reports that overnight he has felt fairly well. He has had no significant fevers, chills, or sweats. No headache. No trouble swallowing. No significant cough, shortness of breath, chest pain, nausea, vomiting, diarrhea, dysuria, or painful defecation. PHYSICAL EXAMINATION: Reveals an afebrile gentleman, in no acute distress. His temperature is 36.6, his pulse is 66, his respiratory rate 17, blood pressure 148/72, saturating 99% on room air. He looks quite well. Mental status is sharp. Eyes without conjunctivitis or scleral icterus. Oral cavity negative. Lungs clear to auscultation bilaterally. Cardiac tones without new murmur. PICC line in good position without inflammation. Abdomen: Soft and nontender. The erythematous rash over the lower anterior neck persists but may have faded slightly overnight. This rash extends a bit down onto the chest, as it did yesterday when I first saw the patient, but it is certainly no worse. LABORATORIES: Include a white count of 400. There is no diff today but yesterday, I request a manual diff and that showed that all the cells basically are lymphocytes with no neutrophils, for an ANC of exactly 0. Creatinine 0.4. His LFT are normal. Albumin 2.8. Procalcitonin 0.08. Fungitell and galactomannan are pending. Blood cultures are all negative. A MRSA screen is pending. Will be available later tonight. 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 He initially presented actually was pseudomonas sepsis at the time of discovery of acute myeloid leukemia. He received his induction chemotherapy, as well as IV meropenem, and did well and was sent home on oral Cipro only to come back to the hospital with this neck infection. It seems likely that his anterior neck infection is secondary to aggressive electric razor shaving of the neck while profoundly neutropenic. We are treating him with meropenem plus vancomycin at this point, as well as posaconazole prophylaxis for serious fungal infection. RECOMMENDATIONS: 1. Will continue with the vancomycin, meropenem and posaconazole. 2. We await the MRSA screen of the nares. If this is negative and we have no other evidence for MRSA infection, we will probably drop the vancomycin over the next day or two but I would continue for today at least. 3. As noted yesterday, I see no particular reason to give the patient acyclovir prophylaxis, as he has HSV 1 and 2 negative.
--- NOTE | 2016-10-27 11:34 | PCM.PNMED ---
Subjective Date of Service Oct 27, 2016 Subjective pt is doing well, no fever, eating well looked strong, good appetite, less pain on his neck. ID consulted yesterday. pt stated his scrotum seems swollen. nontender Exam Vital Signs Vital Sign - Last Date Time Temp Pulse Resp B/P Pulse Ox O2 Delivery O2 Flow Rate FiO2 10/27/16 11:01 65 10/27/16 09:35 36.6 17 148/72 99 Room Air Intake and Output 10/26/16 10/26/16 10/27/16 Cumulative From/Thru 15:00 23:00 07:00 10/24/16 06:05 - 10/27/16 05:55 Intake Total 625 ml 3070 ml 2775 ml 22892 ml Output Total 700 ml 1310 ml 5785 ml Balance 625 ml 2370 ml 1465 ml 75780 ml Intake Oral 520 ml 600 ml 5420 ml IV Total 90 ml 2250 ml 1875 ml 9580 ml Packed Cells 300 ml 300 ml 900 ml Platelets 535 ml 1259 ml Output Urine Total 700 ml 1310 ml 5785 ml # Bowel Movements 0 2 Exam comfortable Erythema around anterior neck, tender/warm, no fluctuance, more erythema on anterior chest-nontender/warm no meningismus, PERRLA, AAOX3, no rash throughout, no oral thrush RRR, nl s1, s2 no mrg CTAB, no w,c S,ND,NT,normoactive BS+ warm, no edema, pulses 2/2 LUE, PICC in place, non-tender normal appearing scrotum -no edema, erythema, tenderness, IVs and Medications Medications Reviewed: Medications were reviewed in detail Lab and Diagnostics Result Diagram: 10/27/1652910/27/16 0530 X-Rays, CTs and MRIs PROCEDURE: X-RAY CHEST ONE VIEW, PORTABLE ([id number]) INDICATIONS: 71 year-old male with neutropenic fevers. TECHNIQUE: One view of the chest was acquired. COMPARISON: None. FINDINGS: Surgical changes and devices: Right PICC is present, with tip in the upper superior vena cava. Lungs and pleura: No pleural effusions or pneumothorax. Lungs are clear. Mediastinum: Mediastinal contours appear normal. Heart size is normal. There is aortic atherosclerosis. Bones and chest wall: No suspicious bony lesions. Overlying soft tissues appear unremarkable. IMPRESSION: No acute cardiopulmonary disease. Dictated by: Shawn Marcial M.D. on 10/24/2016 at 7:29 Approved by: Shawn Marcial M.D. on 10/24/2016 at 7:29 Additional Diagnostics PROCEDURE: US SOFT TISSUE OF HEAD OR NECK SONOGRAM INDICATIONS: 71 year-old male with neutropenic fevers and neck swelling. Assess for abscess. TECHNIQUE: Real-time scanning was performed of the neck region of interest, with image documentation. COMPARISON: None. FINDINGS: In the region of interest, no fluid collections identified to suggest abscess. Normal-appearing sternocleidomastoid muscles are identified. No enlarged lymph nodes identified. IMPRESSION: No sonographic evidence for neck abscess. Dictated by: Shawn Marcial M.D. on 10/24/2016 at 8:02 Approved by: Shawn Marcial M.D. on 10/24/2016 at 8:03 Assessment & Plan 71 yo M w/ recent hospitalization 10/08-10/19 with newly diagnosed AML s/p induction ctx, pseudomonas bacteremia p/w fever with neck started 2days ago. acute, active #sepsis, SIRS+ fever/severe leukopenia/tachycardia,likely source:neck soft tissue infection with micro injury from shaving, possibly staph or strep, unlikely other infectious source-PICC seemed okay on exam, no oral thrush, CXR/ UA unremarkable. no GI/respiratory sx. no signs of [employer] infection. -clinically improved with stable hemodynamics, diffuse erythema is likely from bacterial debri responding to abx. -appreciate ID input regarding abx of choice -started vancomycin, meropenem 2g q8h, ppx dose acyclovir to 200 tid and antifungals, stop acyclovir 10/27 given negative HSV serology, -awaits infectious w/u BCX, galactomannan Ag, BCX from PICC, MRSA swab -serial neck exam to monitor response -tylenol for fever -continue fentanyl prn given multiple opioid allergies -trends fever curve, procalcitonin. -IVF NS 100cc/hr #chronic [id number], thought to be secondary to hydrochlorothiazide, POA, currently not on HCTZ and mildly worsened, likely also component of recent chemo , stable, continue with NS, trends sodium q12h. #chronic anemia, POA, h/h mildly dropped from 2days ago <1g/dl, trends for now, target >7 transfuse as needed #thrombocytopenia, POA, no overt signs of bleeding, s/p 1unit 10/24, 10/25, ordered more units per Oncology as [id number] #AML with sever neutropenia, dxed in 10/12/2016, appreciate Oncology input, awaits ANC to be elevated chronic, stable #Hypertension,resumed dilt as HD remains stable dispo:likely prolonged, cannot determine the course yet diet:regular as tolerate dvt ppx:SCD Full Code VTE Mechanical Devices: Intermittant Pneumatic CD Time spent 35min Eben Lucio MD Oct 27, 2016 11:13
[2016-10-27] MEDS ORDERED: Vancomycin Serum Trough XX ONE (14:00)
--- NOTE | 2016-10-27 16:17 | PCM.PHAPRO ---
Progress Date of Service: Oct 27, 2016 Vancomycin dosing Vanco per Rx Trough remain subtherapeutic, same as yesterday, at 8.1 Increase dose to 1750mg q12h Since 1500mg dose is already being infused, will start 1750mg dose @ 9 hr interval - "pseudo-reload" Next trough @ 12 noon on 10/29 Bk Sears PharmD Oct 27, 2016 16:17
--- NOTE | 2016-10-27 20:07 | DRSVH ---
PROCEDURE: US TESTICULAR SONOGRAM WITH DOPPLER INDICATIONS: PAIN TECHNIQUE: Real-time scanning was performed of the scrotum and testicles, with image documentation. Color and p ulse Doppler interrogation was performed of both testicles. COMPARISON: None. FINDINGS: Right: Testicle is normal in size at 2.7 x 2.0 x 2.2 cm, and homogenous in echotexture. Epididymis is enlarged and demonstrates heterogeneous echotexture with increased vascularity. Small hydrocele. N o varicocele. Overlying scrotal skin is normal in thickness. Left: Testicle is normal in size at 3.0 x 1.9 x 2.2 cm, and homogeneous in echotexture. Epididymis is n enlarged and demonstrates heterogeneous echotexture with increased vascularity. Small hydrocele. No varicocele. Overlying scrotal skin is normal in thickness. Doppler: Color and pulse Doppler demonstrate normal and symmetric arterial flow in both testicles. Increased vascularity is seen within the bilateral epididymides. IMPRESSION: Findings consistent with bilateral epididymitis. Small bilateral hydroceles. Dictated by: Karen Mccain M.D. on 10/27/2016 at 20:04 Approved by: Karen Mccain M.D. on 10/27/2016 at 20:06
[2016-10-27] MEDS: LORazepam 1 mg Tablet PO PRN (21:21)
[2016-10-28] VITALS (7 sets, daily range): BP systolic 148–162; BP diastolic 70–78; PULSE 62–75; RESP 16–18; O2SAT 92–97
[2016-10-28] MEDS: Vancomycin Inj 1,750 MG in 0.9% Sodium Chloride 500 ML IV SCH ×2 (00:30→12:24)
[2016-10-28] MEDS: 0.9% Sodium Chloride 1,000 ML IV SCH (04:20)
[2016-10-28 06:28] LABS: Mean Corpuscular Hemoglobin 29.9 pg (27.0-35.0); Mean Corpuscular Volume 86.4 fL (81-100); Platelet Count 35 bil/L (150-400)
[2016-10-28 06:48] LABS: Magnesium 1.7 mg/dL (1.6-2.6); Phosphorus 1.9 mg/dL (2.5-4.9)
[2016-10-28] MEDS: Meropenem Inj 2,000 MG in 0.9% Sodium Chloride 100 ML IV SCH ×3 (07:46→23:02)
[2016-10-28] MEDS: Pantoprazole 20 mg ER24 Tablet PO SCH (07:56)
[2016-10-28] MEDS: POSACONAZOLE PO SCH ×3 (07:57→18:00)
[2016-10-28] MEDS: Diltiazem CD 120 mg ER24 Capsule PO SCH (07:57)
[2016-10-28] MEDS: Nystatin 100,000 Unit/mL 59 mL Suspension PO SCH ×4 (07:58→21:27)
[2016-10-28] MEDS: Vancomycin Dose per Pharmacist XX SCH (07:59)
[2016-10-28] MEDS ORDERED: Potassium Chloride 20 mEq/15 mL 15mL Oral Soln PO ONE (09:00)
[2016-10-28] MEDS ORDERED: Magnesium Sulf 2 Gm/50mL Water 2 GM in IV Premix 1 EACH IV ONE (09:00)
[2016-10-28] MEDS ORDERED: 0.9% Sodium Chloride 250 ML ONE (10:31)
--- NOTE | 2016-10-28 10:41 | PROG NOTE ---
[address] [address] PROGRESS NOTE PATIENT: JEFF AMEZCUA : 1945 MR#: [id number] ADMIT: 10/24/2016 JOB ID: [id number] DATE: 10/28/2016 INFECTIOUS DISEASE FOLLOWUP NOTE: REASON FOR FOLLOWUP: Leukemia with absolute neutropenia, recent pseudomonas sepsis and now with a neck soft tissue infection. INTERVAL HISTORY: Overnight, the patient reports he has had some low-grade temperatures by his description but without chills or rigors. He has had no headache. No visual change. No sores in the mouth and no sore throat. He has no cough, shortness of breath, or chest pain. He has noted some fullness of his lower abdomen, as well as continued pain in his testicles more so on the right than the left. He has had some loose bowel movements but not frequent bowel movements and no dysuria. PHYSICAL EXAMINATION: Reveals an afebrile gentleman. His T-max the last several days is 37.6. Pulse 62, respiratory rate 16, blood pressure 153/74, saturating 92% on room air. His temperature today 36.9. Mental status is completely clear. I saw him and his walking around the [place] without any difficulty whatsoever just prior to my examining the patient. His eyes are without conjunctival abnormality except for some pallor. No scleral icterus is noted. The nose is without eschar. Oral cavity without thrush, petechia, ulceration, or other abnormality. His lower anterior neck erythema and minimal tenderness are little changed overnight. There is no evidence of progression of this infectious process. His lungs are quite clear posteriorly. Cardiac tones with soft systolic murmur as heard before. Abdomen is slightly distended in a diffuse pattern but nontender even to deep palpation. The patient does not have a rash. LABORATORIES: Include white count 400 today. No diff has been done. Platelets 35,000. Creatinine 0.39. ALT is 49, which has bumped up a bit. AST remains at 26, albumin 2.8. Procalcitonin was low four days ago. It has not been repeated. A vancomycin trough done yesterday afternoon was 8, which is actually too low. Urinalysis without white cells. Fungitell and galactomannan are negative. MRSA screen negative. All blood cultures are negative. IMAGING: Includes a testicular ultrasound, which was done because of his testicular pain. It somewhat surprisingly shows bilateral epididymitis. IMPRESSION: This patient continues to do reasonably well despite his longstanding absolute neutropenia with a neutrophil count which has been recently right at 0. Recall that when he was first diagnosed with leukemia, he had pseudomonas sepsis, which we treated with a prolonged course of meropenem. He then did well for a few days as an outpatient with a neutrophil count of 0, of course, and then developed this anterior neck infection probably due to close shaving with an electric razor. He is now being treated with vancomycin, meropenem and prophylactic posaconazole, and tolerating all that therapy quite well. His neck is stable and perhaps even slightly improved since admission. His abdominal distention, I suspect, is related to fluid and perhaps some degree of bowel wall edema but I do not see any evidence for ongoing colitis by symptoms or exam and certainly, no evidence of typhlitis. The finding of bilateral epididymitis is fairly bizarre. Bilateral epididymitis is unusual and can be associated with some autoimmune processes like Behcet syndrome, as well as possibly tuberculosis, brucellosis, or occasionally other odd infectious processes but none of these seem very likely in this patient. I did a literature search, was unable the find any evidence connecting the bilateral epididymitis to any of the drugs he has been receiving, as I wonder if this could be a reaction either to the leukemic process itself or some of the medicines he has received for leukemia or even some his antibiotics but I see no evidence for that. RECOMMENDATIONS: 1. Given that he is MRSA negative, I think it is reasonable to consider dropping the vancomycin at this point but I will keep it going at least overnight with a plan to perhaps drop it tomorrow if the patient continues to look stable. 2. Will continue with the meropenem. 3. Will continue to closely watch the patient's testes and bilateral epididymitis, as well as his abdominal distention. 4. I encouraged the patient to continue walking and he certainly did so without any difficulty today making two rapid trips around the [place] without any difficulty whatsoever. 5. Will continue to closely follow this patient with you.
--- NOTE | 2016-10-28 15:28 | PCM.PNMED ---
Subjective Date of Service Oct 28, 2016 Subjective patient was found to have bilateral epidymitis on testicular US remained clinically stable, denied scrotal pain this AM c/o mild swelling on legs. Exam Vital Signs Vital Sign - Last Date Time Temp Pulse Resp B/P Pulse Ox O2 Delivery O2 Flow Rate FiO2 10/28/16 12:52 37.2 72 18 159/78 95 Room Air Intake and Output 10/27/16 10/27/16 10/28/16 Cumulative From/Thru 15:00 23:00 07:00 10/24/16 06:05 - 10/28/16 06:10 Intake Total 1582 ml 2309 ml 22907 ml Output Total 1150 ml 2150 ml 9085 ml Balance 432 ml 159 ml 57019 ml Intake Oral 1200 ml 6620 ml IV Total 1582 ml 1109 ml 54518 ml Packed Cells 900 ml Platelets 1259 ml Output Urine Total 1150 ml 2150 ml 9085 ml # Bowel Movements 0 2 Exam comfortable Erythema around anterior neck, tender/warm, no fluctuance, more erythema on anterior chest-nontender/warm no meningismus, PERRLA, AAOX3, no rash throughout, no oral thrush RRR, nl s1, s2 no mrg CTAB, no w,c S,ND,NT,normoactive BS+ warm, trace edema, pulses 2/2 LUE, PICC in place, non-tender normal appearing scrotum -no edema, erythema, tenderness, IVs and Medications Medications Reviewed: Medications were reviewed in detail Lab and Diagnostics Result Diagram: 10/28/1660410/28/16 06 X-Rays, CTs and MRIs PROCEDURE: X-RAY CHEST ONE VIEW, PORTABLE ([id number]) INDICATIONS: 71 year-old male with neutropenic fevers. TECHNIQUE: One view of the chest was acquired. COMPARISON: None. FINDINGS: Surgical changes and devices: Right PICC is present, with tip in the upper superior vena cava. Lungs and pleura: No pleural effusions or pneumothorax. Lungs are clear. Mediastinum: Mediastinal contours appear normal. Heart size is normal. There is aortic atherosclerosis. Bones and chest wall: No suspicious bony lesions. Overlying soft tissues appear unremarkable. IMPRESSION: No acute cardiopulmonary disease. Dictated by: Shawn Marcial M.D. on 10/24/2016 at 7:29 Approved by: Shawn Marcial M.D. on 10/24/2016 at 7:29 Additional Diagnostics PROCEDURE: US SOFT TISSUE OF HEAD OR NECK SONOGRAM INDICATIONS: 71 year-old male with neutropenic fevers and neck swelling. Assess for abscess. TECHNIQUE: Real-time scanning was performed of the neck region of interest, with image documentation. COMPARISON: None. FINDINGS: In the region of interest, no fluid collections identified to suggest abscess. Normal-appearing sternocleidomastoid muscles are identified. No enlarged lymph nodes identified. IMPRESSION: No sonographic evidence for neck abscess. Dictated by: Shawn Marcial M.D. on 10/24/2016 at 8:02 Approved by: Shawn Marcial M.D. on 10/24/2016 at 8:03 Assessment & Plan 71 yo M w/ recent hospitalization 10/08-10/19 with newly diagnosed AML s/p induction ctx, pseudomonas bacteremia p/w fever with neck started 2days ago. acute, active #sepsis, SIRS+ fever/severe leukopenia/tachycardia,likely source:neck soft tissue infection with micro injury from shaving, possibly staph or strep, unlikely other infectious source-PICC seemed okay on exam, no oral thrush, CXR/ UA unremarkable. no GI/respiratory sx. no signs of [employer] infection. on 10/28 newly found bilateral epididymitis on US testicle, unclear clinical significance of this. -clinically improved with stable hemodynamics, diffuse erythema is likely from bacterial debri responding to abx. -appreciate ID input regarding abx of choice -started vancomycin, meropenem 2g q8h, ppx dose acyclovir to 200 tid and antifungals, stop acyclovir 10/27 given negative HSV serology, stopped vancomycin on 10/28 with negative MRSA swab. -awaits infectious w/u BCX, galactomannan Ag, BCX from PICC, -serial neck exam to monitor response -tylenol for fever -continue fentanyl prn given multiple opioid allergies -trends fever curve, procalcitonin. -s/p IVF NS 100cc/hr stopped today given possible fluid overload, -monitor serial scrotal exam, will consider input if it worsens. #chronic [id number], thought to be secondary to hydrochlorothiazide, POA, currently not on HCTZ and mildly worsened, likely also component of recent chemo , stable, continue with NS, trends sodium q12h. #chronic anemia, POA, h/h mildly dropped from 2days ago <1g/dl, trends for now, target >7 transfuse as needed #thrombocytopenia, POA, no overt signs of bleeding, s/p 1unit 10/24, 10/25, ordered more units per Oncology as [id number] #AML with sever neutropenia, dxed in 10/12/2016, appreciate Oncology input, awaits ANC to be elevated chronic, stable #Hypertension,resumed dilt as HD remains stable dispo:likely prolonged, cannot determine the course yet diet:regular as tolerate dvt ppx:SCD Full Code VTE Mechanical Devices: Intermittant Pneumatic CD Time spent 35min Eben Lucio MD Oct 28, 2016 15:28
--- NOTE | 2016-10-28 17:06 | PROG NOTE ---
[address] [address] PROGRESS NOTE PATIENT: JEFF AMEZCUA : 1945 MR#: [id number] ADMIT: 10/24/2016 JOB ID: [id number] DATE: 10/28/2016 SUBJECTIVE: The patient is a 71-year-old gentleman with cellulitis of the neck in the setting of pancytopenia from recent induction chemotherapy for acute myelogenous leukemia. He is on broad-spectrum antibiotics with meropenem, vancomycin and posaconazole. He had blood cultures and MRSA screening which since admission have been negative. He had a low-grade temperature elevation last night. He denies any shaking chills. No nausea or vomiting. He is a bit weak, but has been up walking in the [place] with his on a couple of occasions. OBJECTIVE: Vitals: T max 37.6, P 75, R 16, BP 153/70, O2 saturation 92% on room air. HEENT: Conjunctivae slightly pale. Mucous membranes moist. No oral lesions. Nodes: No adenopathy in the neck, axilla, or groin. Chest is clear. Cardiac exam: Regular rate and rhythm with normal S1, S2. Abdomen: Soft, nontender. Normoactive bowel tones. Genitourinary: Scrotal swelling with tenderness of the testes. Extremities: Trace pedal edema. 2+ distal pulses. No calf tenderness. LABORATORIES: WBC 0.4, hemoglobin 9.0, hematocrit 26%, platelets 35,000. Sodium 133, potassium 3.2, BUN 12, creatinine 0.39, glucose 101. AST 26, ALT 49, alkaline phosphatase 103. IMAGING: Testicular ultrasound (October 27, 2016): Bilateral epididymitis. ASSESSMENT AND PLAN: 1. Cellulitis of the neck and upper chest in the setting of pancytopenia from recent induction chemotherapy for acute myelogenous leukemia: Blood cultures this admission showed no growth. Nasal swab for methicillin-resistant Staphylococcus aureus screening was negative. The patient remains on broad-spectrum antibiotic coverage, with no significant fevers at this time. However, he remains neutropenic and should remain on antibiotic coverage until recovery from his neutropenia. An area of erythema associated with his neck cellulitis is decreasing. He has a couple somewhat fluctuant lesions in the neck bilaterally. No definite indication for incision and drainage at this time, which should be avoided if possible given his neutropenia. No indication for transfusion support today. However, if hematocrit is less than 25% or platelets less than 15,000, then he should be transfused with 2 units irradiated packed red blood cells or 2 units irradiated platelets. As white blood cell count gradually improves, we will schedule a repeat bone marrow studies next week. If he is not in complete remission, we would proceed immediately to re-induction chemotherapy with an additional seven days of Mariaa-C and three days of idarubicin. Will monitor and correct electrolyte abnormalities. 2. The etiology of his epididymitis is unclear. The testes, which are a sanctuary site for leukemia cells, might be associated with similar findings. I will research this further.
[2016-10-28] MEDS: LORazepam 1 mg Tablet PO PRN (21:26)
[2016-10-28] MEDS: Nystatin 100,000 Unit/mL 5 mL Suspension PO SCH (21:46)
[2016-10-29] VITALS (8 sets, daily range): BP systolic 136–168; BP diastolic 69–77; PULSE 67–77; RESP 16–18; O2SAT 92–99
[2016-10-29] MEDS: Vancomycin Inj 1,750 MG in 0.9% Sodium Chloride 500 ML IV SCH ×2 (00:38→13:34)
[2016-10-29 06:18] LABS: Mean Corpuscular Hemoglobin 29.2 pg (27.0-35.0); Mean Corpuscular Volume 86.6 fL (81-100)
[2016-10-29 06:22] LABS: Platelet Count 20 bil/L (150-400)
[2016-10-29 06:36] LABS: Magnesium 1.9 mg/dL (1.6-2.6); Phosphorus 1.7 mg/dL (2.5-4.9)
--- NOTE | 2016-10-29 07:33 | PCM.PNMED ---
Subjective Date of Service Oct 29, 2016 Subjective The patient is a 71-year-old gentleman with cellulitis of the neck after a close shave with a razor, in the setting of pancytopenia from recent induction chemotherapy for acute myelogenous leukemia. He has been afebrile overnight, and slept comfortably through the night. He has been able to walk around the halls without any difficulty and states that overall he feels well. Today he reports that his testicular swelling has been improving and he has been experiencing less pain with changing positions or sitting. Review of Systems Constitutional: Denies Chills, Fever, Sweats, Weakness Neck: Denies Mass, Pain, Swelling Cardiovascular: Denies Chest Pain, Palpitations Respiratory: Denies Cough, Shortness of Breath, Wheezing Gastrointestinal: Denies Abdominal Pain, Change in Appetite, Constipation, Diarrhea, Nausea, Vomiting Genitourinary: Reports bilateral testicular swelling and pain, improved since yesterday. Musculoskeletal: Denies Ankle Pain, Back Pain, Knee Pain, Neck Pain, Shoulder Pain Skin: Reports: Rash on upper chest Neurological: Denies Confusion, Dizziness Exam Vital Signs Vital Sign - Last Date Time Temp Pulse Resp B/P Pulse Ox O2 Delivery O2 Flow Rate FiO2 10/29/16 05:36 73 10/29/16 05:14 37.1 18 155/75 93 Room Air Intake and Output 10/28/16 10/28/16 10/29/16 Cumulative From/Thru 15:00 23:00 07:00 10/24/16 06:05 - 10/29/16 06:13 Intake Total 2042 ml 1476 ml 91257 ml Output Total 2150 ml 2220 ml 83676 ml Balance -108 ml -744 ml 43000 ml Intake Oral 910 ml 800 ml 8330 ml IV Total 1132 ml 676 ml 17024 ml Packed Cells 900 ml Platelets 1259 ml Output Urine Total 2150 ml 2220 ml 59719 ml # Bowel Movements 2 Exam General: Alert, Oriented X3, Cooperative, No acute distress HEENT: Normocephalic, atraumatic. External ears normal. PERRLA, EOMI. Anicteric sclerae. Conjunctivae slightly pale. Nodes: No adenopathy in the neck, axilla, or groin. Mouth: Mouth normal, Mucous membranes moist/pink Neck: Neck supple with full range of motion. Two areas of erythema on anterior neck appears stable. Chest& Lungs: Clear to auscultation bilaterally with no crackles, wheezes, or rhonchi. Cardiovascular: Regular rate/rhythm, Normal S1, Normal S2, No murmurs/rubs/ gallops Abdomen: Non-tender, Non-distended, No masses, Normoactive bowel tones, Soft Genitourinary: Scrotal swelling with tenderness of the testes, improved. Musculoskeletal: Normal strength and range of motion Extremities: Mild-moderate lower extremity pitting edema bilaterally. 2+ distal pulses. Neurological: Grossly neurologically intact. Normal speech Lab and Diagnostics Result Diagram: 10/29/1653110/29/16531 X-Rays, CTs and MRIs PROCEDURE: X-RAY CHEST ONE VIEW, PORTABLE ([id number]) INDICATIONS: 71 year-old male with neutropenic fevers. TECHNIQUE: One view of the chest was acquired. COMPARISON: None. FINDINGS: Surgical changes and devices: Right PICC is present, with tip in the upper superior vena cava. Lungs and pleura: No pleural effusions or pneumothorax. Lungs are clear. Mediastinum: Mediastinal contours appear normal. Heart size is normal. There is aortic atherosclerosis. Bones and chest wall: No suspicious bony lesions. Overlying soft tissues appear unremarkable. IMPRESSION: No acute cardiopulmonary disease. Dictated by: Shawn Marcial M.D. on 10/24/2016 at 7:29 Approved by: Shawn Marcial M.D. on 10/24/2016 at 7:29 Additional Diagnostics PROCEDURE: US SOFT TISSUE OF HEAD OR NECK SONOGRAM INDICATIONS: 71 year-old male with neutropenic fevers and neck swelling. Assess for abscess. TECHNIQUE: Real-time scanning was performed of the neck region of interest, with image documentation. COMPARISON: None. FINDINGS: In the region of interest, no fluid collections identified to suggest abscess. Normal-appearing sternocleidomastoid muscles are identified. No enlarged lymph nodes identified. IMPRESSION: No sonographic evidence for neck abscess. Dictated by: Shawn Marcial M.D. on 10/24/2016 at 8:02 Approved by: Shawn Marcial M.D. on 10/24/2016 at 8:03 Assessment & Plan 1. Cellulitis of the neck and upper chest. Stable. Patient presents with cellulitis in the setting of pancytopenia from recent induction chemotherapy for acute myelogenous leukemia. Blood cultures show no growth at this time. Nasal swab for MRSA was negative; per Dr. Hackett, vancomycin will likely be discontinued today. Given his prior history of Pseudomonas sepsis, he will continue on broad-spectrum coverage with meropenem until he recovers from his neutropenia, as well as posaconazole. He has been completely afebrile for more than 24 hours and clinically improving. The areas of cellulitis appear stable at this time, and there is no indication at this time for incision and drainage. 2. Bilateral epididymitis. Improving. It is uncertain what caused this; none of the medications he is on appear to be related to any sort of epididymitis and other infectious and autoimmune causes are highly unlikely in this patient. We will continue to monitor this as it appears to be spontaneously improving. 3. Pancytopenia His WBC count is improving gradually at this time. His hemoglobin and hematocrit are somewhat stable, but his platelets have dropped to 20,000 today. Recommend infusion with irradiated PRBCs if his hematocrit is less than 25% and infusion with irradiated platelets if his platelet count drops below 15,000. If his white blood cell count continues to improve throughout the weekend, we may anticipate scheduling a bone marrow biopsy as soon as Tuesday or Tuesday. VTE Mechanical Devices: Intermittant Pneumatic CD Patrick Castillo Oct 29, 2016 07:33 2. Bilateral epididymitis. Improving. - Of unclear etiology. This patient continues to do reasonably well despite his longstanding absolute neutropenia with a neutrophil count which has been recently right at 0. Recall that when he was first diagnosed with leukemia, he had pseudomonas sepsis, which we treated with a prolonged course of meropenem. He then did well for a few days as an outpatient with a neutrophil count of 0, of course, and then developed this anterior neck infection probably due to close shaving with an electric razor. He is now being treated with vancomycin, meropenem and prophylactic posaconazole, and tolerating all that therapy quite well. His neck is stable and perhaps even slightly improved since admission. His abdominal distention, I suspect, is related to fluid and perhaps some degree of bowel wall edema but I do not see any evidence for ongoing colitis by symptoms or exam and certainly, no evidence of typhlitis. The finding of bilateral epididymitis is fairly bizarre. Bilateral epididymitis is unusual and can be associated with some autoimmune processes like Behcet syndrome, as well as possibly tuberculosis, brucellosis, or occasionally other odd infectious processes but none of these seem very likely in this patient. I did a literature search, was unable the find any evidence connecting the bilateral epididymitis to any of the drugs he has been receiving, as I wonder if this could be a reaction either to the leukemic process itself or some of the medicines he has received for leukemia or even some his antibiotics but I see no evidence for that. RECOMMENDATIONS: 1. Given that he is MRSA negative, I think it is reasonable to consider dropping the vancomycin at this point but I will keep it going at least overnight with a plan to perhaps drop it tomorrow if the patient continues to look stable. 2. Will continue with the meropenem. 3. Will continue to closely watch the patient's testes and bilateral epididymitis, as well as his abdominal distention. 4. I encouraged the patient to continue walking and he certainly did so without any difficulty today making two rapid trips around the [place] without any difficulty whatsoever. 5. Will continue to closely follow this patient with you. VTE Mechanical Devices: Intermittant Pneumatic CD Patrick Castillo Oct 29, 2016 07:33
[2016-10-29] MEDS: Vancomycin Dose per Pharmacist XX SCH (08:30)
[2016-10-29 08:46] LABS: MONOCYTES % (AUTO) 10 % (4-12); NEUTROPHILS % (AUTO) 0 % (40-74)
--- NOTE | 2016-10-29 08:51 | PROG NOTE ---
[address] [address] PROGRESS NOTE PATIENT: JEFF AMEZCUA : 1945 MR#: [id number] ADMIT: 10/24/2016 JOB ID: [id number] DATE: 10/29/2016 INFECTIOUS DISEASE FOLLOWUP NOTE: REASON FOR FOLLOWUP: Febrile neutropenia. INTERVAL HISTORY: The patient reports he continues to feel fairly well. He has no fevers, chills, or sweats. No sore throat. No cough or shortness of breath. No problems with his PICC line. No nausea, vomiting, or diarrhea. He still has bilateral testicular or epididymal pain, which is perhaps slightly better over the last day or two. No skin rash noted. PHYSICAL EXAMINATION: Reveals an afebrile gentleman who has been afebrile now for five days. He is currently 37.1, pulse 73, respiratory rate 18, blood pressure 155/75, saturating well on room air. Mental status is completely clear. Eyes without conjunctivitis. Oral cavity without pharyngitis. Lungs are clear. The cardiac tones, regular rate and rhythm. PICC line is benign. Abdomen soft and nontender. No tenderness, hepatosplenomegaly and specifically, no right lower quadrant tenderness. His testicles were examined. His testicles are slightly swollen and perhaps slightly tender more on the left than the right. He does have bilateral epididymitis by my exam, though fairly mild. Lower extremities without edema. LABORATORIES: Include white count up to 500, and I have called the lab and ask for a formal diff, which is pending. Twenty thousand platelets are noted. Creatinine 0.43. Albumin 2.6. Urinalysis without white cells. Fungitell has come back at 140, which is a surprising value. Recall that during his previous admission that was negative. MRSA screen and blood cultures are negative. IMAGING: Includes the ultrasound of the testes done two days ago which shows bilateral epididymitis. IMPRESSION: The patient continues to do well overall clinically. I failed to mention in my physical that his lower neck, which was the site of the infection that brought him back to the hospital, is somewhat improved, though still with erythema and two pustular lesions on either side. Though overall his clinical condition is stable, I am concerned about the unexplained bump in his Fungitell level which might suggest a significant brewing fungal process. The patient has no pulmonary symptoms at all, and I doubt that his bilateral epididymitis is on the basis of a fungal process. With respect to his bilateral epididymitis, I was able to find a few articles with patients with ALL, where they have leukemic infiltration of the epididymis, and I think that is a possible consideration here, though this patient has acute myeloid leukemia rather than ALL. More likely, I suspect is reaction to meds, and the possibility of a fungal infection seems very remote. RECOMMENDATIONS: 1. Posaconazole level will be ordered today. 2. Will continue for now with the meropenem and posaconazole the patient has been receiving. 3. Repeat Fungitell will be ordered this morning. 4. Repeat galactomannan will be ordered. 5. Cryptococcal antigen will be ordered. 6. In view of the patient's overall healthy appearance, I have resisted the temptation to add or change antibiotics based on these lab findings and will rather observe the patient going forward with concern regarding his elevated Fungitell, as well as his bilateral epididymitis.
[2016-10-29] MEDS: Nystatin 100,000 Unit/mL 5 mL Suspension PO SCH ×4 (08:58→20:50)
[2016-10-29] MEDS: POSACONAZOLE PO SCH ×3 (08:58→18:21)
[2016-10-29] MEDS: Pantoprazole 20 mg ER24 Tablet PO SCH (09:07)
[2016-10-29] MEDS: Meropenem Inj 2,000 MG in 0.9% Sodium Chloride 100 ML IV SCH ×3 (09:07→23:42)
[2016-10-29] MEDS: Diltiazem CD 180 mg ER24 Capsule PO SCH (09:07)
--- NOTE | 2016-10-29 10:23 | PCM.PNMED ---
Subjective Date of Service Oct 29, 2016 Subjective pt feels his scrotal pain is better, denied fever, chills no pain on his neck. Exam Vital Signs Vital Sign - Last Date Time Temp Pulse Resp B/P Pulse Ox O2 Delivery O2 Flow Rate FiO2 10/29/16 08:00 68 10/29/16 05:14 37.1 18 155/75 93 Room Air Intake and Output 10/28/16 10/28/16 10/29/16 Cumulative From/Thru 15:00 23:00 07:00 10/24/16 06:05 - 10/29/16 06:13 Intake Total 2042 ml 1476 ml 06384 ml Output Total 2150 ml 2220 ml 96834 ml Balance -108 ml -744 ml 91172 ml Intake Oral 910 ml 800 ml 8330 ml IV Total 1132 ml 676 ml 52377 ml Packed Cells 900 ml Platelets 1259 ml Output Urine Total 2150 ml 2220 ml 07983 ml # Bowel Movements 2 Exam comfortable Erythema around anterior neck, crusted indurated scabbed ucler one in Rt and one in left, nontender, no meningismus, PERRLA, AAOX3, no rash throughout, no oral thrush RRR, nl s1, s2 no mrg CTAB, no w,c S,ND,NT,normoactive BS+ warm, trace edema, pulses 2/2 LUE, PICC in place, non-tender deferred scrotal exam today IVs and Medications Medications Reviewed: Medications were reviewed in detail Lab and Diagnostics Result Diagram: 10/29/16 0532 10/29/16 0532 X-Rays, CTs and MRIs PROCEDURE: X-RAY CHEST ONE VIEW, PORTABLE ([id number]) INDICATIONS: 71 year-old male with neutropenic fevers. TECHNIQUE: One view of the chest was acquired. COMPARISON: None. FINDINGS: Surgical changes and devices: Right PICC is present, with tip in the upper superior vena cava. Lungs and pleura: No pleural effusions or pneumothorax. Lungs are clear. Mediastinum: Mediastinal contours appear normal. Heart size is normal. There is aortic atherosclerosis. Bones and chest wall: No suspicious bony lesions. Overlying soft tissues appear unremarkable. IMPRESSION: No acute cardiopulmonary disease. Dictated by: Shawn Marcial M.D. on 10/24/2016 at 7:29 Approved by: Shawn Marcial M.D. on 10/24/2016 at 7:29 Additional Diagnostics PROCEDURE: US SOFT TISSUE OF HEAD OR NECK SONOGRAM INDICATIONS: 71 year-old male with neutropenic fevers and neck swelling. Assess for abscess. TECHNIQUE: Real-time scanning was performed of the neck region of interest, with image documentation. COMPARISON: None. FINDINGS: In the region of interest, no fluid collections identified to suggest abscess. Normal-appearing sternocleidomastoid muscles are identified. No enlarged lymph nodes identified. IMPRESSION: No sonographic evidence for neck abscess. Dictated by: Shawn Marcial M.D. on 10/24/2016 at 8:02 Approved by: Shawn Marcial M.D. on 10/24/2016 at 8:03 Assessment & Plan 71 yo M w/ recent hospitalization 10/08-10/19 with newly diagnosed AML s/p induction ctx, pseudomonas bacteremia p/w fever with neck started 2days ago. acute, active #sepsis, SIRS+ fever/severe leukopenia/tachycardia,likely source:neck soft tissue infection with micro injury from shaving, possibly staph or strep, unlikely other infectious source-PICC seemed okay on exam, no oral thrush, CXR/ UA unremarkable. no GI/respiratory sx. no signs of ODD SHOE EXAMINER infection. on 10/28 newly found bilateral epididymitis on US testicle, unclear clinical significance of this. -clinically improved with stable hemodynamics, -appreciate ID input regarding abx of choice -started vancomycin, meropenem 2g q8h, ppx dose acyclovir to 200 tid and antifungals, stop acyclovir 10/27 given negative HSV serology, plan to vancomycin with negative MRSA swab per ID. -awaits infectious w/u BCX, galactomannan Ag, BCX from PICC, so far ngtd -serial neck exam to monitor response -tylenol for fever -continue fentanyl prn given multiple opioid allergies -trends fever curve, procalcitonin. -s/p IVF NS 100cc/hr stopped 10/28 given possible fluid overload, -monitor serial scrotal exam, will consider input if it worsens. #chronic [id number], thought to be secondary to hydrochlorothiazide, POA, currently not on HCTZ and mildly worsened, likely also component of recent chemo , stable, continue with NS, trends sodium q12h. #chronic anemia, POA, h/h mildly dropped from 2days ago <1g/dl, trends for now, target >7 transfuse as needed #thrombocytopenia, POA, no overt signs of bleeding, s/p 1unit 10/24, 10/25, ordered more units per Oncology as [id number] #AML with sever neutropenia, dxed in 10/12/2016, CBC showed concerning 20% blast , appreciate Oncology input, chronic, stable #Hypertension,resumed dilt as HD remains stable dispo:likely prolonged, cannot determine the course yet diet:regular as tolerate dvt ppx:SCD Full Code VTE Mechanical Devices: Intermittant Pneumatic CD Time spent 35min Eben Lucio MD Oct 29, 2016 10:23
[2016-10-29] MEDS ORDERED: Vancomycin Serum Trough XX ONE (12:00)
--- NOTE | 2016-10-29 14:06 | PROG NOTE ---
[address] [address] PROGRESS NOTE PATIENT: JEFF AMEZCUA : 1945 MR#: [id number] ADMIT: 10/24/2016 JOB ID: [id number] DATE: 10/29/2016 ONCOLOGY INPATIENT PROGRESS NOTE: SUBJECTIVE: The patient is a 71-year-old gentleman hospitalized with cellulitis of the neck and upper chest in the setting of pancytopenia from recent induction chemotherapy for acute myelogenous leukemia. He was originally hospitalized on about October 09, 2016 with a total white count of 216.8 with 88% blasts, subsequently confirmed as acute myelogenous leukemia. He received seven days of induction chemotherapy with leonor-C and idarubicin at that time, with expected pancytopenia and transfusion dependence. He had a white cell alban of 0.1 on October 25, 2016, but subsequently his total white cell count has been slowly rising. He was discharged from his induction chemotherapy regimen on October 19, 2016, but readmitted on October 24, 2016 with the above findings of pancytopenia and bilateral neck cellulitis, for which he remains on broad-spectrum antibiotics. Laboratory studies earlier today show a total white blood cell count of 0.5, but with 20% circulating blasts. OBJECTIVE: Vitals T 36.7, P 67, R 18, BP 156/74, O2 saturation 99% on room air. HEENT: Conjunctivae slightly pale. Mucous membranes moist. No oral lesions. Neck: No significant adenopathy. He has moderate erythema over the neck bilaterally, no longer extending onto the chest, and a couple of bilateral areas of fluctuance in the neck bilaterally which remain slightly warm and tender. Chest: Clear throughout. No wheezes or crackles. Cardiac: Regular rate and rhythm, with normal S1 and S2. Abdomen: Soft, nontender, with normoactive bowel tones. No splenomegaly or masses. Genitourinary: Mild scrotal edema. Extremities: 1+ bilateral lower extremity edema. 1+ distal pulses. No calf tenderness. LABORATORIES: WBC 0.5 with 20% blasts and 70% lymphocytes. There were no neutrophils identified. Hemoglobin 8.7, hematocrit 25.8%, platelets 20,000. Sodium 131, potassium 3.5, BUN 10, creatinine 0.43, glucose 99. AST 18, ALT 46, alkaline phosphatase 105. 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 He developed pancytopenia and has been receiving intermittent transfusions with irradiated leuko-poor blood products for hematocrit less than 25% and platelets less than 15,000. No indication for transfusion support today. However, peripheral blood, which nadired three days ago, has shown a gradual increase in his total white blood cell count, currently 0.5, with no neutrophils, but 20% circulating blasts. No need to do upcoming bone marrow studies, as the circulating blasts confirm evidence of residual leukemia. Proceed with immediate re-induction chemotherapy. I started him on IV fluids with normal saline plus one amp sodium bicarbonate per liter at a rate of 75 mL per hour. We will restart chemotherapy with leonor-C 100 mg/m2 IV daily for seven days and idarubicin 12 mg/m2 IV for the first three days beginning tomorrow (October 30, 2016). I discussed the indications for retreatment with the patient and his , and they agreed to proceed. He will likely remain transfusion dependent. He is profoundly neutropenic and will need to remain on broad-spectrum antibiotics. Continue to appreciate the assistance of Dr. Hackett and the hospitalist team.
[2016-10-29] MEDS: SODIUM BICARB IV SCH (14:53)
[2016-10-29] MEDS: SODIUM CHLORIDE 0.9% IV SCH (14:53)
--- NOTE | 2016-10-29 14:58 | PCM.PHAPRO ---
Progress Date of Service: Oct 29, 2016 Vancomycin dosing A/ - 71 y/o male day 5 inpatient for febrile neutropenia. He received induction chemotherapy in Sep for acute myeloma leukemia. - Vancomycin trough is still low today @10.8. Cultures showed NGTD and negative MRSA, however Dr. Hackett recommended to keep Vancomycin going for now as patient is going to receive induction chemotherapy tomorrow, Dr. Balbuena follows. P/ - Give one time Vancomycin 1.75G @1930 today (8 hrs after last dose), and then 1.25G iv q8h starts @0530 tomorrow. Trough level ordered @1300 on 10/30. Hopefully, with new regimen, trough would reach to 15 or higher Pharmacy will continue to follow. Thank you Washington Hernandez, PharmD, [facility] Nirmal Hernandez Oct 29, 2016 14:58
[2016-10-29] MEDS ORDERED: Vancomycin Inj 1,750 MG in 0.9% Sodium Chloride 500 ML IV ONE (19:30)
[2016-10-29] MEDS: LORazepam 1 mg Tablet PO PRN (20:50)
[2016-10-30] VITALS (11 sets, daily range): BP systolic 139–163; BP diastolic 68–73; PULSE 63–76; RESP 16–18; O2SAT 94–97
[2016-10-30 05:12] LABS: Mean Corpuscular Hemoglobin 29.5 pg (27.0-35.0); Mean Corpuscular Volume 86.3 fL (81-100)
[2016-10-30 05:14] LABS: Platelet Count 17 bil/L (150-400)
[2016-10-30] MEDS: Vancomycin Inj 1,250 MG in 0.9% Sodium Chloride 250 ML IV SCH ×3 (05:34→21:23)
[2016-10-30] MEDS ORDERED: 0.9% Sodium Chloride 250 ML ONE ×2 (08:04→13:27)
[2016-10-30] MEDS: Meropenem Inj 2,000 MG in 0.9% Sodium Chloride 100 ML IV SCH ×3 (08:10→23:40)
[2016-10-30] MEDS: Pantoprazole 20 mg ER24 Tablet PO SCH (08:10)
[2016-10-30] MEDS: Diltiazem CD 180 mg ER24 Capsule PO SCH (08:10)
[2016-10-30] MEDS: POSACONAZOLE PO SCH ×3 (08:11→17:39)
[2016-10-30] MEDS: Nystatin 100,000 Unit/mL 5 mL Suspension PO SCH ×4 (08:11→20:32)
[2016-10-30] MEDS: Vancomycin Dose per Pharmacist XX SCH (08:30)
[2016-10-30 09:08] LABS: Cryptococcal Ag Negative (Negative)
[2016-10-30] MEDS ORDERED: [UNRECOGNIZED DRUG - OTHER] IV ONE (11:30)
[2016-10-30] MEDS ORDERED: SODIUM CHLORIDE 0.9% IV ONE (11:30)
[2016-10-30] MEDS ORDERED: Palonosetron 0.05 mg/mL 5 mL Inj IV ONE (11:30)
--- NOTE | 2016-10-30 11:51 | PCM.PNMED ---
Subjective Date of Service Oct 30, 2016 Subjective no overnight event, scrotum still swollen, but nontender plan to start 7days re-induction chemo leonor-C/idarubicin per today Exam Vital Signs Vital Sign - Last Date Time Temp Pulse Resp B/P Pulse Ox O2 Delivery O2 Flow Rate FiO2 10/30/16 09:16 72 10/30/16 08:10 36.8 18 163/69 96 Room Air Intake and Output 10/29/16 10/29/16 10/30/16 Cumulative From/Thru 15:00 23:00 07:00 10/24/16 06:05 - 10/30/16 05:36 Intake Total 2041 ml 2686 ml 56962 ml Output Total 2000 ml 2000 ml 59214 ml Balance 41 ml 686 ml 63158 ml Intake Oral 1040 ml 1000 ml 49351 ml IV Total 1001 ml 1686 ml 68699 ml Packed Cells 900 ml Platelets 1259 ml Output Urine Total 2000 ml 2000 ml 45033 ml # Bowel Movements 2 Exam comfortable Erythema around anterior neck, crusted indurated scabbed ucler one in Rt and one in left, nontender, no meningismus, PERRLA, AAOX3, no rash throughout, no oral thrush RRR, nl s1, s2 no mrg CTAB, no w,c S,ND,NT,normoactive BS+ warm, trace edema, pulses 2/2 LUE, PICC in place, non-tender deferred scrotal exam today IVs and Medications Medications Reviewed: Medications were reviewed in detail Lab and Diagnostics Result Diagram: 10/30/16 0500 10/30/16 0500 X-Rays, CTs and MRIs PROCEDURE: X-RAY CHEST ONE VIEW, PORTABLE ([id number]) INDICATIONS: 71 year-old male with neutropenic fevers. TECHNIQUE: One view of the chest was acquired. COMPARISON: None. FINDINGS: Surgical changes and devices: Right PICC is present, with tip in the upper superior vena cava. Lungs and pleura: No pleural effusions or pneumothorax. Lungs are clear. Mediastinum: Mediastinal contours appear normal. Heart size is normal. There is aortic atherosclerosis. Bones and chest wall: No suspicious bony lesions. Overlying soft tissues appear unremarkable. IMPRESSION: No acute cardiopulmonary disease. Dictated by: Shawn Marcial M.D. on 10/24/2016 at 7:29 Approved by: Shawn Marcial M.D. on 10/24/2016 at 7:29 Additional Diagnostics PROCEDURE: US SOFT TISSUE OF HEAD OR NECK SONOGRAM INDICATIONS: 71 year-old male with neutropenic fevers and neck swelling. Assess for abscess. TECHNIQUE: Real-time scanning was performed of the neck region of interest, with image documentation. COMPARISON: None. FINDINGS: In the region of interest, no fluid collections identified to suggest abscess. Normal-appearing sternocleidomastoid muscles are identified. No enlarged lymph nodes identified. IMPRESSION: No sonographic evidence for neck abscess. Dictated by: Shawn Marcial M.D. on 10/24/2016 at 8:02 Approved by: Shawn Marcial M.D. on 10/24/2016 at 8:03 Assessment & Plan 71 yo M w/ recent hospitalization 10/08-10/19 with newly diagnosed AML s/p induction ctx, pseudomonas bacteremia p/w fever with neck started 2days ago. acute, active #sepsis, SIRS+ fever/severe leukopenia/tachycardia,likely source:neck soft tissue infection with micro injury from shaving, possibly staph or strep, unlikely other infectious source-PICC seemed okay on exam, no oral thrush, CXR/ UA unremarkable. no GI/respiratory sx. no signs of CHANGE RELEASE MANAGER infection. -clinically stable with stable hemodynamics, afebrile -appreciate ID input regarding abx of choice -started vancomycin, meropenem 2g q8h, ppx dose acyclovir to 200 tid and antifungals, stop acyclovir 10/27 given negative HSV serology, possibly stop vancomycin, defer to ID. -awaits infectious w/u BCX, galactomannan Ag, BCX from PICC, so far ngtd -serial neck exam to monitor response -tylenol for fever -continue fentanyl prn given multiple opioid allergies -trends fever curve, procalcitonin. -s/p IVF NS 100cc/hr stopped 10/28 given possible fluid overload, -monitor serial scrotal exam, will consider input if it worsens. #chronic , thought to be secondary to hydrochlorothiazide, POA, currently not on HCTZ and mildly worsened, likely also component of recent chemo , stable, continue with NS, trends sodium qd #chronic anemia, POA, h/h mildly dropped from 2days ago <1g/dl, trends for now, target >7 transfuse as needed #thrombocytopenia, POA, no overt signs of bleeding, s/p 1unit 10/24, 10/25, transfuse plt as needed per oncology #AML with sever neutropenia, dxed in 10/12/2016, CBC on 10/29 showed concerning 20 % blast, start reinduction chemo 10/30 for 7days. #Newly found bilateral epididymitis on US testicle, on 10/28, unclear clinical significance of this, possible leukemic infiltration, stable, unlikely new source of infection and patient also covered well with abx. chronic, stable #Hypertension,resumed dilt as HD remains stable dispo:likely prolonged>7days, cannot determine the course yet diet:regular as tolerate dvt ppx:SCD Full Code VTE Mechanical Devices: Intermittant Pneumatic CD Time spent 35min Eben Lucio MD Oct 30, 2016 11:51
[2016-10-30] MEDS: Dexamethasone 10 mg/50 mL NS IV SCH ×2 (12:00)
[2016-10-30] MEDS ORDERED: Vancomycin Serum Trough XX ONE (13:00)
[2016-10-30] MEDS: IDARUBICIN IV SCH (13:39)
[2016-10-30] MEDS: SODIUM CHLORIDE 0.9% IV SCH ×2 (13:39→14:49)
--- NOTE | 2016-10-30 14:21 | PCM.PHAPRO ---
Progress Date of Service: Oct 30, 2016 Vancomycin dosing Vancomycin dosing per pharmacy Indication: febrile neutropenia Vancomycin trough goal: 15-20 Pertinent information: - MRSA screen neg -- Dr. Hackett recommends to continue vancomycin for now. - Patient received additional loading dose of vancomycin 1750 mg at 2042 last night. - Started vancomycin 1250 mg Q8H at 0500 this morning. Trough: 11.9 Trough is subtherapeutic but trending up. Unclear why trough was drawn so soon after bolus last night and new dose of 1250 mg Q8H. Continue vancomycin 1250 mg Q8H, will redraw trough on 10/31/16 at 0500. Pharmacy to continue to monitor and dose vancomycin daily. Thank you, Leif Jones Pharmacist Leif Jones Oct 30, 2016 14:21
[2016-10-30] MEDS: CYTARABINE IV SCH (14:49)
[2016-10-30] MEDS: LORazepam 1 mg Tablet PO PRN (20:48)
[2016-10-31] VITALS (7 sets, daily range): BP systolic 143–160; BP diastolic 72–77; PULSE 60–73; RESP 16–20; O2SAT 94–99
[2016-10-31] MEDS ORDERED: Vancomycin Serum Trough XX ONE (05:00)
[2016-10-31] MEDS: Vancomycin Inj 1,250 MG in 0.9% Sodium Chloride 250 ML IV SCH ×3 (06:12→21:20)
[2016-10-31 06:25] LABS: Magnesium 1.8 mg/dL (1.6-2.6); Phosphorus 2.5 mg/dL (2.5-4.9)
[2016-10-31 07:04] LABS: BASOPHILS % (AUTO) 0 % (0-3); EOSINOPHILS % (AUTO) 0 % (0-5); MONOCYTES % (AUTO) 21.7 % (4-12); Mean Corpuscular Hemoglobin 29.6 pg (27.0-35.0); Mean Corpuscular Volume 85.9 fL (81-100); NEUTROPHILS % (AUTO) 8.7 % (40-74)
--- NOTE | 2016-10-31 07:29 | PCM.PHAPRO ---
Progress Date of Service: Oct 31, 2016 Vancomycin dosing Vancomycin dosing per pharmacy Indication: febrile neutropenia Vancomycin trough goal: 15-20 Pertinent information: - MRSA screen neg -- Dr. Hackett recommends to continue vancomycin for now. - Most recently receiving vancomycin 1250 mg Q8H. - Other antimicrobials: meropenem, posaconazole - SCr appears stable. Trough: 14.6 Trough is trending up and is almost at therapeutic levels. Will leave dose unchanged for now. Continue vancomycin 1250 mg Q8H, will redraw trough on 11/02/16 at 1300. Pharmacy to continue to monitor daily and dose vancomycin. Thank you, Leif Jones Pharmacist Leif Jones Oct 31, 2016 07:29
[2016-10-31 07:45] LABS: Platelet Count 19 bil/L (150-400)
[2016-10-31] MEDS: Vancomycin Dose per Pharmacist XX SCH (07:47)
[2016-10-31] MEDS: Pantoprazole 20 mg ER24 Tablet PO SCH (07:57)
[2016-10-31] MEDS: Nystatin 100,000 Unit/mL 5 mL Suspension PO SCH ×4 (07:57→21:19)
[2016-10-31] MEDS: Diltiazem CD 180 mg ER24 Capsule PO SCH (07:57)
[2016-10-31] MEDS: Meropenem Inj 2,000 MG in 0.9% Sodium Chloride 100 ML IV SCH ×3 (07:57→23:36)
[2016-10-31] MEDS: POSACONAZOLE PO SCH ×3 (07:58→17:48)
[2016-10-31] MEDS: Dexamethasone 10 mg/50 mL NS IV SCH ×2 (11:42)
[2016-10-31] MEDS: Nystatin 100,000 Unit/Gm 15 Gm Powder TOPICAL PRN ×2 (11:42→21:23)
[2016-10-31] MEDS ORDERED: 0.9% Sodium Chloride 250 ML ONE ×3 (12:34→16:16)
[2016-10-31] MEDS: SODIUM CHLORIDE 0.9% IV SCH ×2 (12:47→16:29)
[2016-10-31] MEDS: IDARUBICIN IV SCH (12:47)
--- NOTE | 2016-10-31 16:12 | PCM.PNMED ---
Subjective Date of Service Oct 31, 2016 Subjective Patient was seen and examined at bedside today. Patient denies any chest pain, shortness of breath, nausea, vomiting, diarrhea. Patient states that his scrotal edema has improved however reports that his lower extremity edema has increased.. Patient also complains of a rash in the inguinal area. Patient also states that the masses in his neck seemed to have improved as well. Exam Vital Signs Vital Sign - Last Date Time Temp Pulse Resp B/P Pulse Ox O2 Delivery O2 Flow Rate FiO2 10/31/16 14:03 36.5 65 18 146/72 94 Room Air Intake and Output 10/30/16 10/30/16 10/31/16 Cumulative From/Thru 15:00 23:00 07:00 10/24/16 06:05 - 10/31/16 05:33 Intake Total 1911 ml 600 ml 72599 ml Output Total 3050 ml 2650 ml 08332 ml Balance -1139 ml -2050 ml 8651 ml Intake Oral 837 ml 600 ml 34356 ml IV Total 1074 ml 96139 ml Packed Cells 900 ml Platelets 1259 ml Output Urine Total 3050 ml 2650 ml 60957 ml # Bowel Movements 0 2 Exam Physical Exam: GEN: Patient was awake, alert, responding appropriately to questions HEENT: PERRLA, EOMI, Neck soft supple, no masses located on the SCM are improving compared to yesterday according to patient and nursing, trachea midline, nomocephalic/atraumatic CV: +S1/S2, RRR, no murmur auscultated Respiratory: CTAB, no wheezes, rales, rhonchi GI: +bowel sounds x4, soft, compressible, non TTP : Minimal scrotal edema, positive macular papular rash in the inguinal area bilaterally right greater than left EXT: no c/c +2 pitting edema bilaterally lower extremities Neuro: CN II-XII grossly intact Psych: mood and affect were appropriate IVs and Medications Medications Reviewed: Medications were reviewed in detail Lab and Diagnostics Result Diagram: 10/31/1654410/31/16544 X-Rays, CTs and MRIs PROCEDURE: X-RAY CHEST ONE VIEW, PORTABLE ([id number]) INDICATIONS: 71 year-old male with neutropenic fevers. TECHNIQUE: One view of the chest was acquired. COMPARISON: None. FINDINGS: Surgical changes and devices: Right PICC is present, with tip in the upper superior vena cava. Lungs and pleura: No pleural effusions or pneumothorax. Lungs are clear. Mediastinum: Mediastinal contours appear normal. Heart size is normal. There is aortic atherosclerosis. Bones and chest wall: No suspicious bony lesions. Overlying soft tissues appear unremarkable. IMPRESSION: No acute cardiopulmonary disease. Dictated by: Shawn Marcial M.D. on 10/24/2016 at 7:29 Approved by: Shawn Marcial M.D. on 10/24/2016 at 7:29 Additional Diagnostics PROCEDURE: US SOFT TISSUE OF HEAD OR NECK SONOGRAM INDICATIONS: 71 year-old male with neutropenic fevers and neck swelling. Assess for abscess. TECHNIQUE: Real-time scanning was performed of the neck region of interest, with image documentation. COMPARISON: None. FINDINGS: In the region of interest, no fluid collections identified to suggest abscess. Normal-appearing sternocleidomastoid muscles are identified. No enlarged lymph nodes identified. IMPRESSION: No sonographic evidence for neck abscess. Dictated by: Shawn Marcial M.D. on 10/24/2016 at 8:02 Approved by: Shawn Marcial M.D. on 10/24/2016 at 8:03 Assessment & Plan 71 yo M w/ recent hospitalization 10/08-10/19 with newly diagnosed AML s/p induction ctx, pseudomonas bacteremia p/w fever with neck started 2days ago. acute, active Sepsis, SIRS+ fever/severe leukopenia/tachycardia,likely source:neck soft tissue infection with micro injury from shaving, possibly staph or strep, unlikely other infectious source-PICC seemed okay on exam, no oral thrush, CXR/ UA unremarkable. no GI/respiratory sx. no signs of DIRECTOR OF WOMEN'S SERVICES infection. -clinically stable with stable hemodynamics, afebrile -Infectious disease has been consulted - appreciate ID input regarding abx of choice -Continue vancomycin, meropenem 2g q8h, ppx dose acyclovir to 200 tid and antifungals, stop acyclovir 10/27 given negative HSV serology, possibly stop vancomycin, defer to ID. -Blood culture negative 5 days - MRSA negative awaits -Cryptococcus antigen negative -Galactomannan Ag, and fungal antibodies culture pending -serial neck exam to monitor response -tylenol for fever -continue fentanyl prn given multiple opioid allergies -trends fever curve, procalcitonin. -s/p IVF NS 100cc/hr stopped 10/28 given possible fluid overload, -monitor serial scrotal exam, will consider input if it worsens but currently seems to be improving Chronic hyponatremia-possibly secondary to hydrochlorothiazide, POA, currently not on HCTZ and mildly worsened, likely also component of recent chemo - Sodium 125 on admission -Currently stable current sodium is 136, thought to be secondary - Discontinue normal saline Chronic anemia, POA -h/h mildly dropped from 2days ago <1g/dl, -Currently stable H&H is 8.8/25.5 -We will transfuse as needed if hemoglobin drops below 7 Thrombocytopenia, POA -White blood cell count on admission was 0.4 currently 0.2 -No overt signs of bleeding, s/p 1unit 10/24, 10/25, transfuse plt as needed per oncology AML with severe neutropenia, dxed in 10/12/2016, CBC on 10/29 showed concerning 20 % blast, start reinduction chemo 10/30 for 7days. Newly found bilateral epididymitis on US testicle, on 10/28, unclear clinical significance of this, possible leukemic infiltration, stable, unlikely new source of infection and patient also covered well with abx. chronic, stable Hypertension,resumed dilt as HD remains stable -Blood pressure currently 146/72 -Continue home dose of diltiazem 180 mg PO daily dispo:likely prolonged>7days, cannot determine the course yet. The patient will most likely need 7 days of inpatient chemotherapy according to oncology. Patient will continue on IV antibiotics until further recommendations are made by infectious disease. diet:regular as tolerate dvt ppx:SCD Full Code VTE Mechanical Devices: Intermittant Pneumatic CD Time spent Greater than 35 minutes Shi Luna DO Oct 31, 2016 16:00
[2016-10-31] MEDS: CYTARABINE IV SCH (16:29)
[2016-10-31] MEDS: LORazepam 1 mg Tablet PO PRN (21:20)
[2016-11-01] VITALS (9 sets, daily range): BP systolic 134–160; BP diastolic 50–76; PULSE 55–98; RESP 16–18; O2SAT 97–100
[2016-11-01] MEDS: SODIUM CHLORIDE 0.9% IV SCH ×5 (00:30→17:03)
[2016-11-01] MEDS: SODIUM BICARB IV SCH ×3 (00:30→08:40)
[2016-11-01 04:56] LABS: Mean Corpuscular Hemoglobin 29.2 pg (27.0-35.0); Mean Corpuscular Volume 85.8 fL (81-100)
[2016-11-01] MEDS: Vancomycin Inj 1,250 MG in 0.9% Sodium Chloride 250 ML IV SCH ×3 (05:00→21:44)
[2016-11-01] MEDS: Pantoprazole 20 mg ER24 Tablet PO SCH (06:50)
[2016-11-01] MEDS: Meropenem Inj 2,000 MG in 0.9% Sodium Chloride 100 ML IV SCH ×2 (06:50→16:08)
--- NOTE | 2016-11-01 08:12 | PROG NOTE ---
[address] [address] PROGRESS NOTE PATIENT: JEFF AMEZCUA : 1945 MR#: [id number] ADMIT: 10/24/2016 JOB ID: [id number] DATE: 11/01/2016 SUBJECTIVE: The patient is a 71-year-old gentleman, hospitalized with cellulitis of the neck and upper chest in the setting of pancytopenia from recent induction chemotherapy for acute myelogenous leukemia. He had originally been hospitalized on October 09, 2016, with a total white count of 216.8 with 88% blasts, subsequently confirmed pathologically as acute myelogenous leukemia. He received seven days of induction chemotherapy with leonor-C and idarubicin at that time. Recent laboratory studies showed the persistent presence of about 20% blasts in his circulating red cells, and he began re-induction chemotherapy with another seven days of leonor-C and three days of idarubicin starting on Sunday, October 30, 2016. He has been tolerating this well. No nausea or vomiting. No fevers over the weekend. He notes some increased swelling in his lower extremities. He has had a mild rash in the groin. He denies any shortness of breath or chest pain. He is experiencing hair loss. OBJECTIVE: Vitals: T 37.1, P 72, R 18, BP 160/73, O2 saturation 97% on room air. Weight 87.5 kg (approximately 6 kg above baseline). HEENT: Conjunctivae pale. Mucous membranes moist. Moderate hair loss from chemotherapy. Neck: Erythema and areas of fluctuance have mostly resolved. Chest: Clear. Cardiac exam: Regular rate and rhythm. Abdomen: Benign. Extremities: 1-2+ bilateral lower extremity edema extending up to almost the knee. Neuro: Alert and cooperative, with no gross focal deficits. LABORATORIES: WBC 0.1, hemoglobin 8.6, hematocrit 25.3%, MCV 86, platelets 27,000. ASSESSMENT AND PLAN: Acute myelogenous leukemia: The patient received initial induction chemotherapy with 7+3 beginning on October 11, 2016. With evidence of residual leukemia, he began re-induction chemotherapy with seven days of leonor-C and three days of idarubicin on Sunday, October 30, 2016. This is day three, which is the final day of idarubicin in the current cycle, and day three of seven continuous infusion leonor-C. He is tolerating treatment well. We are gratified to see his white cell count at 0.1, and expected to remain at this or 0 for 2-3 weeks, during which time he will likely remain in hospital. Continue broad-spectrum antibiotics, which include meropenem and vancomycin. Appreciate input from the Infectious Disease team. Note that prior cultures have been positive for Pseudomonas aeruginosa in his blood and Enterococcus faecalis in the urine. Cultures during the current hospitalization have been negative, but he did have active cellulitis of the neck at the time of admission. No indication for transfusion support today, but please transfuse with irradiated blood products only when necessary.
[2016-11-01] MEDS: Nystatin 100,000 Unit/mL 5 mL Suspension PO SCH ×4 (08:41→21:44)
[2016-11-01] MEDS: POSACONAZOLE PO SCH ×3 (08:41→18:07)
[2016-11-01] MEDS: Diltiazem CD 180 mg ER24 Capsule PO SCH (08:41)
[2016-11-01] MEDS: Nystatin 100,000 Unit/Gm 15 Gm Powder TOPICAL PRN (08:51)
[2016-11-01] MEDS: Mupirocin 2% 22 Gm Ointment TOPICAL SCH ×2 (10:23→20:11)
[2016-11-01] MEDS: Dexamethasone 10 mg/50 mL NS IV SCH ×2 (11:48)
[2016-11-01] MEDS ORDERED: 0.9% Sodium Chloride 250 ML ONE (12:40)
[2016-11-01] MEDS: IDARUBICIN IV SCH (13:31)
--- NOTE | 2016-11-01 15:23 | PCM.PNMED ---
Subjective Date of Service Nov 01, 2016 Subjective Patient was seen and examined at bedside today. Patient denies any chest pain, shortness of breath, nausea, vomiting, diarrhea. Patient states that his lower extremity and genital edema is significantly improved. Patient also states that he feels that he is having more energy. Exam Vital Signs Vital Sign - Last Date Time Temp Pulse Resp B/P Pulse Ox O2 Delivery O2 Flow Rate FiO2 11/01/16 15:10 36.7 55 16 145/75 99 Room Air Intake and Output 10/31/16 10/31/16 11/01/16 Cumulative From/Thru 15:00 23:00 07:00 10/24/16 06:05 - 11/01/16 06:49 Intake Total 1052 ml 1258 ml 1711 ml 03604 ml Output Total 2500 ml 3475 ml 68111 ml Balance 1052 ml -1242 ml -1764 ml 6697 ml Intake Oral 800 ml 300 ml 67924 ml IV Total 1052 ml 458 ml 1411 ml 55696 ml Packed Cells 900 ml Platelets 1259 ml Output Urine Total 2500 ml 3475 ml 96770 ml # Bowel Movements 0 2 Exam Physical Exam: GEN: Patient was awake, alert, responding appropriately to questions HEENT: PERRLA, EOMI, Neck soft supple, trachea midline, nomocephalic/atraumatic , cellulitic lesions on the bilateral SCM improved from yesterday flattening with positive scaling CV: +S1/S2, RRR, no murmur auscultated Respiratory: CTAB, no wheezes, rales, rhonchi GI: +bowel sounds x4, soft, compressible, mild TTP : Scrotal exam within normal limits no edema noted Skin: Macular inguinal rash improved significantly EXT: no c/c/e right lower extremity, +1 pitting edema in the left lower extremity however this is improved from yesterday Neuro: CN II-XII grossly intact Psych: mood and affect were appropriate IVs and Medications Medications Reviewed: Medications were reviewed in detail Lab and Diagnostics Result Diagram: 11/01/1642911/01/16 043 X-Rays, CTs and MRIs PROCEDURE: X-RAY CHEST ONE VIEW, PORTABLE ([id number]) INDICATIONS: 71 year-old male with neutropenic fevers. TECHNIQUE: One view of the chest was acquired. COMPARISON: None. FINDINGS: Surgical changes and devices: Right PICC is present, with tip in the upper superior vena cava. Lungs and pleura: No pleural effusions or pneumothorax. Lungs are clear. Mediastinum: Mediastinal contours appear normal. Heart size is normal. There is aortic atherosclerosis. Bones and chest wall: No suspicious bony lesions. Overlying soft tissues appear unremarkable. IMPRESSION: No acute cardiopulmonary disease. Dictated by: Shawn Marcial M.D. on 10/24/2016 at 7:29 Approved by: Shawn Marcial M.D. on 10/24/2016 at 7:29 Additional Diagnostics PROCEDURE: US SOFT TISSUE OF HEAD OR NECK SONOGRAM INDICATIONS: 71 year-old male with neutropenic fevers and neck swelling. Assess for abscess. TECHNIQUE: Real-time scanning was performed of the neck region of interest, with image documentation. COMPARISON: None. FINDINGS: In the region of interest, no fluid collections identified to suggest abscess. Normal-appearing sternocleidomastoid muscles are identified. No enlarged lymph nodes identified. IMPRESSION: No sonographic evidence for neck abscess. Dictated by: Shawn Marcial M.D. on 10/24/2016 at 8:02 Approved by: Shawn Marcial M.D. on 10/24/2016 at 8:03 Assessment & Plan 71 yo M w/ recent hospitalization 10/08-10/19 with newly diagnosed AML s/p induction ctx, pseudomonas bacteremia p/w fever with neck started 2days ago. acute, active Sepsis, SIRS+ fever/severe leukopenia/tachycardia,likely source:neck soft tissue infection with micro injury from shaving, possibly staph or strep, unlikely other infectious source-PICC seemed okay on exam, no oral thrush, CXR/ UA unremarkable. no GI/respiratory sx. no signs of STANDARDS ANALYST infection. -clinically stable with stable hemodynamics, afebrile -Infectious disease has been consulted - appreciate ID input regarding abx of choice -Continue vancomycin, meropenem 2g q8h, ppx dose acyclovir to 200 tid and antifungals, stop acyclovir 10/27 given negative HSV serology, possibly stop vancomycin, defer to ID. -Blood culture negative 5 days - MRSA negative awaits -Cryptococcus antigen negative -Galactomannan Ag, and fungal antibodies culture pending -serial neck exam to monitor response -tylenol for fever -continue fentanyl prn given multiple opioid allergies -trends fever curve, procalcitonin. -s/p IVF NS 100cc/hr stopped 10/28 given possible fluid overload, -monitor serial scrotal exam, will consider input if it worsens but currently seems to be improving -Bactroban cream twice a day to cellulitic lesions on the neck bilaterally Volume overload -Patient is now having lower extremity edema however his overall edema has improved but this is most likely secondary to the high amounts of volumes in the patient's medications that are currently necessary -We will start Lasix 40 mg daily by mouth and see how the patient tolerates this. -We will continue to follow and manage Inguinal rash most likely fungal (improved) -Continue nystatin powder Chronic hyponatremia-possibly secondary to hydrochlorothiazide, POA, currently not on HCTZ and mildly worsened, likely also component of recent chemo - Sodium 125 on admission -Currently stable current sodium is 136 - Discontinue normal saline Chronic anemia, POA -h/h mildly dropped from 2days ago <1g/dl, -Currently stable H&H is 8.8/25.5 -We will transfuse as needed if hemoglobin drops below 7 Thrombocytopenia, POA -White blood cell count on admission was 0.4 currently 0.1 -No overt signs of bleeding, s/p 1unit 10/24, 10/25, transfuse plt as needed per oncology AML with severe neutropenia, dxed in 10/12/2016, CBC on 10/29 showed concerning 20 % blast, start reinduction chemo 10/30 for 7days. Newly found bilateral epididymitis on US testicle, on 10/28, unclear clinical significance of this, possible leukemic infiltration, stable, unlikely new source of infection and patient also covered well with abx. chronic, stable Hypertension,resumed dilt as HD remains stable -Blood pressure currently 146/72 -Continue home dose of diltiazem 180 mg PO daily Disposition: The patient remains neutropenic with a white blood cell count of 0.1. The patient does seem to be improving overall his platelet count is now increased to 27. The patient's case was discussed with Dr. Balbuena with oncology he states that the patient will most likely be here for another 3 weeks. It was discussed with the patient may need transfusion of platelets and PRBC. We will continue to monitor and follow with recommendations from oncology. Patient seems to be progressing well diet:regular as tolerate dvt ppx:SCD Full Code VTE Mechanical Devices: Intermittant Pneumatic CD Shi Luna DO Nov 01, 2016 15:23
--- NOTE | 2016-11-01 16:03 | PROG NOTE ---
[address] [address] PROGRESS NOTE PATIENT: JEFF AMEZCUA : 1945 MR#: [id number] ADMIT: 10/24/2016 JOB ID: [id number] DATE: 11/01/2016 REASON FOR FOLLOWUP: Prolonged neutropenia with previous Pseudomonas sepsis and ongoing anterior neck infection. INTERVAL HISTORY: Recall that on Tuesday I had seen the patient and was wondering about his white count which had bumped back to 500. I was actually hopeful that this was the start of a return of good neutrophils and so I called the lab and asked for a differential on the 500 white cells, but unfortunately, it turned out, that 20% were blast cells. I relayed this information to Dr. Balbuena, who came back to the hospital and told the patient that his induction therapy for leukemia had failed and restarted him on a re-induction protocol. The patient and his tell me that after this initial sobering news, they have recovered and are now feeling positive about the new therapy. Over the weekend, despite the starting of his re-induction chemotherapy for AML, the patient continued to feel reasonably well. He denies fevers, chills, or sweats. He has no significant headache. No visual complaint, no sore throat. No trouble swallowing. No cough, shortness of breath, chest pain, nausea, vomiting, or diarrhea. He notes that his anterior neck continues to rapidly improve and is almost back to normal. LABORATORIES: Include a white count of 37.1, pulse 61, respiratory rate 18, blood pressure 160/73. He is saturating well on room air. He is in no acute distress and is just finishing up lunch. Sinuses nontender. Oral cavity without thrush or hairy leukoplakia. His anterior neck erythema is almost gone, and he has a supple neck. His lungs quite clear posteriorly. Cardiac tones with a 1/6 murmur heard best at the right upper area. The abdomen is benign. Mild edema of the lower extremities. Otherwise negative. Labs include a white count now down to 100, platelet count 27,000, hematocrit 26, creatinine 0.4. LFTs normal except for an ALT of 50. Procalcitonin basically zero. Urinalysis without white cells. Followup posaconazole level from the is pending and we eagerly await that result. Crypto antigen from the 10th is negative. Repeat Fungitell and galactomannan are pending. Recall that his initial Fungitell was 140, which was somewhat surprising, as we had no evidence for an ongoing fungal process. MRSA screen negative. Blood cultures negative. His last chest x-ray was on the and was negative. IMPRESSION: This has been an unfortunate turn of events for this gentleman who turns out to have failed his induction chemotherapy and has now restarted another course. Though he has an elevated Fungitell which is quite worrisome from the , and we await the repeat from the , I do not see any evidence of an ongoing fungal process at this point, and he remains on posaconazole prophylaxis. We await the posaconazole level. At this point, I see no evidence for ongoing infection but we are going to maintain the broad-spectrum antibiotics with meropenem and posaconazole as the patient will likely be neutropenic for an extended period and has recently been diagnosed not only with cellulitis of the neck as well as Pseudomonas bacteremia. RECOMMENDATIONS: 1. Will go ahead and discontinue the vancomycin at this point, as the patient has completed a more than one day course and we have no proof of MRSA. Obviously, we should not continue the vancomycin for the entire duration of his neutropenia which may now extend for a for very long period of time. 2. Will continue meropenem, though I am obviously concerned about the possibility of selecting resistant organisms. 3. Will continue with Bactroban. 4. Continue with posaconazole prophylaxis while we await the posaconazole level.
[2016-11-01] MEDS: CYTARABINE IV SCH (17:03)
[2016-11-01] MEDS: LORazepam 1 mg Tablet PO PRN (21:44)
[2016-11-02] VITALS (7 sets, daily range): BP systolic 144–170; BP diastolic 71–98; PULSE 51–89; RESP 16–20; O2SAT 97–100
[2016-11-02 05:58] LABS: Mean Corpuscular Hemoglobin 29.4 pg (27.0-35.0)
[2016-11-02 06:00] LABS: Platelet Count 28 bil/L (150-400)
--- NOTE | 2016-11-02 07:27 | PROG NOTE ---
[address] [address] PROGRESS NOTE PATIENT: JEFF AMEZCUA : 1945 MR#: [id number] ADMIT: 10/24/2016 JOB ID: [id number] DATE: 11/02/2016 SUBJECTIVE: The patient is a 71-year-old gentleman with acute myelogenous leukemia, hospitalized for management of cellulitis of the neck and upper chest in the setting of pancytopenia from prior induction chemotherapy. He has been on broad-spectrum antibiotics. Subsequent laboratory studies showed 20% circulating peripheral blasts, and he has been started on re-induction chemotherapy, currently beginning day 4 leonor-C. He has completed three days of idarubicin without incident. No nausea or vomiting. No fevers above 38 degrees centigrade since October 24, 2016. Cultures during this hospitalization has shown no growth. MRSA screen was negative. He has required transfusion support with irradiated blood products. He denies any shortness of breath at this time. He denies any bleeding or atypical bruising. Edema is improving with mild diuresis. OBJECTIVE: Vitals: T 36.7, P 51, R 17, BP 155/71. HEENT: Conjunctivae slightly pale. Modest hair loss. Mucous membranes moist. No oral lesions. Nodes: No adenopathy in the neck or axilla. Neck: Erythema and areas of fluctuance appear to be stable. Chest: Clear throughout. Cardiac exam: Regular rate and rhythm with normal S1, S2. Abdomen: Soft, nontender, with normoactive bowel tones. Extremities: Trace lower extremity edema. Neuro: Alert and cooperative. LABORATORIES: WBC 0.1, hemoglobin 8.6, hematocrit 25.2%, platelets 28,000. Sodium 138, potassium 4.1, BUN 17, creatinine 0.4, glucose 109. AST 33, ALT 72, alkaline phosphatase 98. ASSESSMENT AND PLAN: Acute myelogenous leukemia: The patient received initial induction chemotherapy with 7+3, beginning on October 11, 2016. With evidence of residual leukemia, he began re-induction chemotherapy with 7+3 on October 30, 2016. He has completed three days of idarubicin, and is about to begin day 4 leonor-C later today. He continues to tolerate treatment well. Infection in the neck is improved. He remains on meropenem and posaconazole. Cultures have been negative. No indication for transfusion support today. Continue to monitor closely.
[2016-11-02] MEDS: Diltiazem CD 180 mg ER24 Capsule PO SCH (08:30)
[2016-11-02] MEDS: Mupirocin 2% 22 Gm Ointment TOPICAL SCH ×2 (09:09→19:45)
[2016-11-02] MEDS: SODIUM CHLORIDE 0.9% IV SCH ×2 (09:10→15:17)
[2016-11-02] MEDS: Meropenem Inj 2,000 MG in 0.9% Sodium Chloride 100 ML IV SCH ×5 (09:10→22:16)
[2016-11-02] MEDS: SODIUM BICARB IV SCH (09:10)
[2016-11-02] MEDS: Nystatin 100,000 Unit/Gm 15 Gm Powder TOPICAL PRN (09:10)
[2016-11-02] MEDS: Pantoprazole 20 mg ER24 Tablet PO SCH (09:11)
[2016-11-02] MEDS: Nystatin 100,000 Unit/mL 5 mL Suspension PO SCH ×4 (11:16→22:15)
[2016-11-02] MEDS: POSACONAZOLE PO SCH ×3 (11:16→18:20)
[2016-11-02] MEDS ORDERED: Vancomycin Serum Trough XX ONE (13:00)
--- NOTE | 2016-11-02 14:36 | PROG NOTE ---
[address] [address] PROGRESS NOTE PATIENT: JEFF AMEZCUA : 1945 MR#: [id number] ADMIT: 10/24/2016 JOB ID: [id number] DATE: 11/02/2016 REASON FOR FOLLOW UP: Prolonged neutropenia with Pseudomonas sepsis, followed by a cellulitic episode. INTERVAL HISTORY: Overnight, the patient has felt quite well. No fevers, chills, or sweats. No headache, sore throat, cough, shortness of breath, nausea, vomiting, or diarrhea. No dysuria. He and his noticed a small papular lesion in the inguinal fold adjacent to his scrotum on the left earlier today, but when they went back to look for it again, they could not find it and they asked me to examine that area. PHYSICAL EXAMINATION: Reveals an afebrile gentleman. He has been afebrile throughout this stay, which started back on October 26. Temp 36.7 this afternoon. Pulse 60, respiratory rate 18, blood pressure 153/73, saturating 100% on room air. No acute distress. Mental status. Sharp. Oral cavity: No thrush or pharyngitis. Left eye has a conjunctival hemorrhage which is new, but the visual acuity of the left eye is intact. Neck is supple. Lungs clear. Cardiac tones with 2/6 murmur heard best in the aortic area, as before. PICC line in good position without inflammation. Abdomen: Soft and nontender, without organomegaly. Examination of the scrotum and testes is completely normal and I find no papular or other lesion in the inguinal folds on either left or the right, after careful inspection. The perineum appears entirely normal. The perianal area was also carefully inspected and is benign appearing. LABORATORIES: Include a white count 100 today. Diff not done, of course. Platelet count 28,000, hematocrit 25. Creatinine 0.4. LFTs normal except ALT 72. Albumin 3.0. Procalcitonin yesterday basically zero. The Fungitell repeat came back from October 29 finally, and it is actually zero. Recall that earlier last week, his Fungitell was 140, which was of great concern, and now we have a negative repeat, which is very reassuring. Galactomannan and crypto antigen negative. Micro studies remain all negative, including blood cultures and MRSA screen. No new imaging has been done in the past few days. IMPRESSION: The patient continues to be quite stable despite the need for re-induction as he did not get a remission with his first induction cycle. At this point, we continue to wait and watch and anticipate it will be a couple weeks of profound neutropenia before he regains his white count. He remains at extremely high risk, of course, for fungal infection, as well as a bacterial superinfection and other complications associated with prolonged agranulocytosis. RECOMMENDATIONS: Will continue with our current antibiotics, meropenem and fluconazole. No indication for additional antibiotics at this point, and it is very reassuring that his Fungitell has normalized. Will repeat a Fungitell and galactomannan within the next couple days as part of our ongoing monitoring, and we still await the posaconazole level.
[2016-11-02] MEDS: CYTARABINE IV SCH (15:17)
[2016-11-02] MEDS: Dexamethasone 10 mg/50 mL NS IV SCH ×2 (15:18)
--- NOTE | 2016-11-02 17:12 | PCM.PNMED ---
Subjective Date of Service Nov 02, 2016 Subjective Patient was seen and examined at bedside today. Patient denies any chest pain, shortness of breath, nausea, vomiting, diarrhea. Patient states that his lower extremity swelling is still present but his genital swelling/edema has improved significantly in his back down to normal. Exam Vital Signs Vital Sign - Last Date Time Temp Pulse Resp B/P Pulse Ox O2 Delivery O2 Flow Rate FiO2 11/02/16 15:39 36.7 16 144/78 99 Room Air 11/02/16 13:33 60 Intake and Output 11/01/16 11/01/16 11/02/16 Cumulative From/Thru 15:00 23:00 07:00 10/24/16 06:05 - 11/02/16 05:43 Intake Total 2972 ml 74361 ml Output Total 1660 ml 14089 ml Balance 1312 ml 8009 ml Intake Oral 1500 ml 98657 ml IV Total 1472 ml 67038 ml Packed Cells 900 ml Platelets 1259 ml Output Urine Total 1660 ml 87665 ml # Bowel Movements 2 Exam Physical Exam: GEN: Patient was awake, alert, responding appropriately to questions HEENT: PERRLA, EOMI, Neck soft supple, trachea midline, nomocephalic/atraumatic CV: +S1/S2, RRR, no murmur auscultated Respiratory: CTAB, no wheezes, rales, rhonchi GI: +bowel sounds x4, soft, compressible, non TTP : Rash in the inguinal area significantly improved, no genital swelling or edema EXT: no c/c +2 pitting edema bilaterally Neuro: CN II-XII grossly intact Psych: mood and affect were appropriate IVs and Medications Medications Reviewed: Medications were reviewed in detail Lab and Diagnostics Result Diagram: 11/02/1647 11/02/16546 X-Rays, CTs and MRIs PROCEDURE: X-RAY CHEST ONE VIEW, PORTABLE ([id number]) INDICATIONS: 71 year-old male with neutropenic fevers. TECHNIQUE: One view of the chest was acquired. COMPARISON: None. FINDINGS: Surgical changes and devices: Right PICC is present, with tip in the upper superior vena cava. Lungs and pleura: No pleural effusions or pneumothorax. Lungs are clear. Mediastinum: Mediastinal contours appear normal. Heart size is normal. There is aortic atherosclerosis. Bones and chest wall: No suspicious bony lesions. Overlying soft tissues appear unremarkable. IMPRESSION: No acute cardiopulmonary disease. Dictated by: Shawn Marcial M.D. on 10/24/2016 at 7:29 Approved by: Shawn Marcial M.D. on 10/24/2016 at 7:29 Additional Diagnostics PROCEDURE: US SOFT TISSUE OF HEAD OR NECK SONOGRAM INDICATIONS: 71 year-old male with neutropenic fevers and neck swelling. Assess for abscess. TECHNIQUE: Real-time scanning was performed of the neck region of interest, with image documentation. COMPARISON: None. FINDINGS: In the region of interest, no fluid collections identified to suggest abscess. Normal-appearing sternocleidomastoid muscles are identified. No enlarged lymph nodes identified. IMPRESSION: No sonographic evidence for neck abscess. Dictated by: Shawn Marcial M.D. on 10/24/2016 at 8:02 Approved by: Shawn Marcial M.D. on 10/24/2016 at 8:03 Assessment & Plan 71 yo M w/ recent hospitalization 10/08-10/19 with newly diagnosed AML s/p induction ctx, pseudomonas bacteremia p/w fever with neck started 2days ago. acute, active Sepsis, SIRS+ fever/severe leukopenia/tachycardia,likely source:neck soft tissue infection with micro injury from shaving, possibly staph or strep, unlikely other infectious source-PICC seemed okay on exam, no oral thrush, CXR/ UA unremarkable. no GI/respiratory sx. no signs of EQUIP TECH infection. -clinically stable with stable hemodynamics, afebrile -Infectious disease has been consulted - appreciate ID input regarding abx of choice -Continue vancomycin, meropenem 2g q8h, ppx dose acyclovir to 200 tid and antifungals, stop acyclovir 10/27 given negative HSV serology, possibly stop vancomycin, defer to ID. -Blood culture negative 5 days - MRSA negative awaits -Cryptococcus antigen negative -Galactomannan Ag, and fungal antibodies culture pending -serial neck exam to monitor response -tylenol for fever -continue fentanyl prn given multiple opioid allergies -trends fever curve, procalcitonin. -s/p IVF NS 100cc/hr stopped 10/28 given possible fluid overload, -monitor serial scrotal exam, will consider input if it worsens but currently seems to be improving -Bactroban cream twice a day to cellulitic lesions on the neck bilaterally Volume overload -Patient still has +2 pitting edema however genital swelling has resolved -Continue Lasix 40 mg daily by mouth daily -We will continue to follow and manage Inguinal rash most likely fungal (improved) -Continue nystatin powder Chronic hyponatremia-possibly secondary to hydrochlorothiazide, POA, currently not on HCTZ and mildly worsened, likely also component of recent chemo - Sodium 125 on admission -Currently stable current sodium is 136 - Discontinue normal saline Chronic anemia, POA -h/h mildly dropped from 2days ago <1g/dl, -Currently stable H&H is 8.8/25.5 -We will transfuse as needed if hemoglobin drops below 7 Thrombocytopenia, POA -White blood cell count on admission was 0.4 currently 0.1 -No overt signs of bleeding, s/p 1unit 10/24, 10/25, transfuse plt as needed per oncology AML with severe neutropenia, dxed in 10/12/2016, CBC on 10/29 showed concerning 20 % blast, start reinduction chemo 10/30 for 7days. Newly found bilateral epididymitis on US testicle, on 10/28, unclear clinical significance of this, possible leukemic infiltration, stable, unlikely new source of infection and patient also covered well with abx. chronic, stable Hypertension,resumed dilt as HD remains stable -Blood pressure currently 146/72 -Continue home dose of diltiazem 180 mg PO daily Disposition: Patient is responding to treatment well. Patient will continue his treatment for the next 2-1/2 weeks as per oncology. diet:regular as tolerate dvt ppx:SCD Full Code VTE Mechanical Devices: Intermittant Pneumatic CD Time spent Greater than 35 minutes Shi Luna DO Nov 02, 2016 17:11
[2016-11-02] MEDS: LORazepam 1 mg Tablet PO PRN (22:24)
[2016-11-03] VITALS (8 sets, daily range): BP systolic 149–169; BP diastolic 74–85; PULSE 54–66; RESP 15–20; O2SAT 96–100
[2016-11-03 05:13] LABS: Mean Corpuscular Hemoglobin 29.8 pg (27.0-35.0); Mean Corpuscular Volume 85.8 fL (81-100)
[2016-11-03 05:14] LABS: Platelet Count 24 bil/L (150-400)
[2016-11-03] MEDS: Nystatin 100,000 Unit/Gm 15 Gm Powder TOPICAL PRN ×2 (08:07→21:21)
[2016-11-03] MEDS: POSACONAZOLE PO SCH ×3 (08:07→17:19)
[2016-11-03] MEDS: Mupirocin 2% 22 Gm Ointment TOPICAL SCH ×2 (08:07→21:23)
[2016-11-03] MEDS: Diltiazem CD 180 mg ER24 Capsule PO SCH (08:08)
[2016-11-03] MEDS: Pantoprazole 20 mg ER24 Tablet PO SCH (08:08)
--- NOTE | 2016-11-03 09:18 | PROG NOTE ---
[address] [address] PROGRESS NOTE PATIENT: JEFF AMEZCUA : 1945 MR#: [id number] ADMIT: 10/24/2016 JOB ID: [id number] DATE: 11/03/2016 INFECTIOUS DISEASE FOLLOW UP NOTE: REASON FOR FOLLOWUP: Persistent neutropenia in a patient with recent septic episodes. INTERVAL HISTORY: Today, the patient feels relatively well. He has noticed some burning on the penis where he has a dribbling of urine and he attributes this to the chemotherapy being renally excreted and producing this inflammation of the penis and scrotum which I think is a reasonable explanation. He has solved this problem by promptly washing off any of this dribbling. Otherwise, he has no fevers, no chills, no sweats. No sore throat, trouble swallowing, cough, chest pain, nausea, vomiting or diarrhea. PHYSICAL EXAMINATION: Reveals an afebrile gentleman, temperature 36.7, pulse 65, respiratory rate 20, blood pressure 161/85, saturating well on room air. Examination of mental status reveals it to be clear. The oral cavity is benign. Lungs quite clear. Cardiac tones without new murmur. PICC line in good position. Abdomen soft and nontender. No skin rash. Mental status, as mentioned, is normal. LABORATORIES: Include a white count of 100, platelets 24,000. Creatinine 0.37. ALT 73, AST 26. Albumin 3. The new Fungitell returned yesterday as was mentioned in yesterday's note and was negative which was reassuring. MRSA screen and blood cultures negative. A posaconazole level has returned at 0.5. This is an adequate level for prophylaxis in a patient such as this. IMPRESSION: This patient seems to be doing surprisingly well despite his extremely long period of neutropenia which kicked off when he was discovered to have acute leukemia with a total white count about quarter million and Pseudomonas sepsis. Despite this very difficult start, the patient has done surprisingly well. Even though he failed his initial induction and is now undergoing a re-induction, he has remained free of serious infection. The infection of the anterior neck was likely due to Staph or strep and has resolved with appropriate antibiotics. RECOMMENDATIONS: 1. Will continue with meropenem and prophylactic posaconazole for the time being. 2. This case discussed in person with both Dr. Luna and Dr. Balbuena of Hem/Onc this morning. 3. ID will continue to follow this complex case with you.
[2016-11-03] MEDS ORDERED: 0.9% Sodium Chloride 250 ML ONE ×2 (09:50→15:56)
[2016-11-03] MEDS: Nystatin 100,000 Unit/mL 5 mL Suspension PO SCH ×4 (09:53→21:19)
[2016-11-03] MEDS: SODIUM BICARB IV SCH ×2 (09:54→23:07)
[2016-11-03] MEDS: SODIUM CHLORIDE 0.9% IV SCH ×3 (09:54→23:07)
[2016-11-03] MEDS: Meropenem Inj 2,000 MG in 0.9% Sodium Chloride 100 ML IV SCH ×3 (09:54→23:06)
--- NOTE | 2016-11-03 13:07 | PROG NOTE ---
[address] [address] PROGRESS NOTE PATIENT: JEFF AMEZCUA : 1945 MR#: [id number] ADMIT: 10/24/2016 JOB ID: [id number] DATE: 11/03/2016 SUBJECTIVE: The patient is a 71-year-old gentleman with acute myelogenous leukemia, undergoing re-induction chemotherapy for acute myelogenous leukemia. The current hospitalization began on October 24, 2016, when he presented with fevers and evidence of cellulitis across his neck and upper chest. He has been on broad-spectrum antibiotics, currently meropenem 2 g IV 8 hours and posaconazole 200 mg by mouth three times daily. Findings over the neck area have improved significantly. Cultures during this hospitalization have been negative. During his prior induction chemotherapy, he had evidence of blood cultures positive for Pseudomonas and urine positive for Enterococcus faecalis. He has been afebrile since October 24, 2016. Peripheral blood during this hospitalization showed evidence of a total white count of 0.5 with 20% blasts on October 29, 2016, and he is now undergoing re-induction chemotherapy. No nausea or vomiting. He feels a bit weak, but still managed to walk at least a mile in the halls with his the other day. OBJECTIVE: Vitals: T 36.7, P 65, R 20, BP 161/85. O2 saturation 97% on room air. HEENT: Conjunctivae slightly pale. Mucous membranes moist. No oral lesions. Nodes: No adenopathy in the neck or axilla. Chest: Clear throughout. Cardiac examination: Regular rate and rhythm with normal S1, S2. Abdomen: Soft, nontender, with normoactive bowel tones. No splenomegaly or masses. Extremities: Trace lower extremity edema. 2+ distal pulses. LABORATORIES: WBC 0.1, hemoglobin 8.4, hematocrit 24.2%, platelets 24,000. Sodium 136, potassium 3.9, BUN 19, creatinine 0.37. Glucose 127. AST 26, ALT 73, alkaline phosphatase 91. Calcium 7.8, albumin 3.0, uric acid 2.1. ASSESSMENT AND PLAN: Acute myelogenous leukemia: The patient received initial induction chemotherapy with 7 + 3 beginning on October 11, 2016. Due to evidence of residual leukemia, he began a re-induction chemotherapy with 7 + 3 on October 30, 2016. He is beginning day five SIMÓN-C later today. No evidence of systemic infection. Localized cellulitis over the neck is much improved. Continue antibiotics under the guidance of Dr. Jorge Luis Hackett. Cultures this hospitalization have been negative. He has borderline indication for transfusion support today, but without any acute shortness of breath, and recently good energy, we will not transfuse packed red blood cells until later this week. Continue to monitor closely.
[2016-11-03] MEDS: Dexamethasone 10 mg/50 mL NS IV SCH ×2 (15:25)
--- NOTE | 2016-11-03 16:09 | PCM.PNMED ---
Subjective Date of Service Nov 03, 2016 Subjective Patient was seen and examined at bedside today. Patient denies any chest pain, shortness of breath, nausea, vomiting, diarrhea. Exam Vital Signs Vital Sign - Last Date Time Temp Pulse Resp B/P Pulse Ox O2 Delivery O2 Flow Rate FiO2 11/03/16 14:06 36.6 66 15 152/74 100 Room Air Intake and Output 11/02/16 11/02/16 11/03/16 Cumulative From/Thru 15:00 23:00 07:00 10/24/16 06:05 - 11/03/16 06:19 Intake Total 200 ml 2970 ml 200 ml 77632 ml Output Total 2750 ml 1500 ml 2200 ml 63559 ml Balance -2550 ml 1470 ml -2000 ml 4929 ml Intake Oral 200 ml 1680 ml 200 ml 49022 ml IV Total 1290 ml 58417 ml Packed Cells 900 ml Platelets 1259 ml Output Urine Total 2750 ml 1500 ml 2200 ml 77046 ml # Bowel Movements 2 Exam Physical Exam: GEN: Patient was awake, alert, responding appropriately to questions HEENT: PERRLA, EOMI, Neck soft supple, trachea midline, nomocephalic/atraumatic CV: +S1/S2, RRR, no murmur auscultated Respiratory: CTAB, no wheezes, rales, rhonchi GI: +bowel sounds x4, soft, compressible, non TTP : Patient's inguinal rash has improved significantly no signs of scrotal edema EXT: no c/c +1 pitting edema improved from yesterday Neuro: CN II-XII grossly intact Psych: mood and affect were appropriate IVs and Medications Medications Reviewed: Medications were reviewed in detail Lab and Diagnostics Result Diagram: 11/03/1644411/03/16444 X-Rays, CTs and MRIs PROCEDURE: X-RAY CHEST ONE VIEW, PORTABLE ([id number]) INDICATIONS: 71 year-old male with neutropenic fevers. TECHNIQUE: One view of the chest was acquired. COMPARISON: None. FINDINGS: Surgical changes and devices: Right PICC is present, with tip in the upper superior vena cava. Lungs and pleura: No pleural effusions or pneumothorax. Lungs are clear. Mediastinum: Mediastinal contours appear normal. Heart size is normal. There is aortic atherosclerosis. Bones and chest wall: No suspicious bony lesions. Overlying soft tissues appear unremarkable. IMPRESSION: No acute cardiopulmonary disease. Dictated by: Shawn Marcial M.D. on 10/24/2016 at 7:29 Approved by: Shawn Marcial M.D. on 10/24/2016 at 7:29 Additional Diagnostics PROCEDURE: US SOFT TISSUE OF HEAD OR NECK SONOGRAM INDICATIONS: 71 year-old male with neutropenic fevers and neck swelling. Assess for abscess. TECHNIQUE: Real-time scanning was performed of the neck region of interest, with image documentation. COMPARISON: None. FINDINGS: In the region of interest, no fluid collections identified to suggest abscess. Normal-appearing sternocleidomastoid muscles are identified. No enlarged lymph nodes identified. IMPRESSION: No sonographic evidence for neck abscess. Dictated by: Shawn Marcial M.D. on 10/24/2016 at 8:02 Approved by: Shawn Marcial M.D. on 10/24/2016 at 8:03 Assessment & Plan 71 yo M w/ recent hospitalization 10/08-10/19 with newly diagnosed AML s/p induction ctx, pseudomonas bacteremia p/w fever with neck started 2days ago. acute, active Sepsis, SIRS+ fever/severe leukopenia/tachycardia,likely source:neck soft tissue infection with micro injury from shaving, possibly staph or strep, unlikely other infectious source-PICC seemed okay on exam, no oral thrush, CXR/ UA unremarkable. no GI/respiratory sx. no signs of MOTHER SUPERIOR infection. -clinically stable with stable hemodynamics, afebrile -Infectious disease has been consulted - appreciate ID input regarding abx of choice -Continue vancomycin, meropenem 2g q8h, ppx dose acyclovir to 200 tid and antifungals, stop acyclovir 10/27 given negative HSV serology, possibly stop vancomycin, defer to ID. -Blood culture negative 5 days - MRSA negative awaits -Cryptococcus antigen negative -Galactomannan Ag, and fungal antibodies culture pending -serial neck exam to monitor response -tylenol for fever -continue fentanyl prn given multiple opioid allergies -trends fever curve, procalcitonin. -s/p IVF NS 100cc/hr stopped 10/28 given possible fluid overload, -monitor serial scrotal exam, will consider input if it worsens but currently seems to be improving -Bactroban cream twice a day to cellulitic lesions on the neck bilaterally Hypertension - Blood pressure 163/80 -Start hydralazine 25 mg IV 4 times a day -We will continue to monitor Volume overload -Patient still has +1 pitting edema genital swelling has resolved -Continue Lasix 40 mg daily by mouth daily -We will continue to follow and manage Inguinal rash most likely fungal (resolved) -Continue nystatin powder Chronic hyponatremia-possibly secondary to hydrochlorothiazide, POA, currently not on HCTZ and mildly worsened, likely also component of recent chemo (resolved ) - Sodium 125 on admission -Currently stable current sodium is 136 - Discontinue normal saline Chronic anemia, POA -h/h mildly dropped from 2days ago <1g/dl, -Currently stable H&H is 8.8/25.5 -We will transfuse as needed if hemoglobin drops below 7 Thrombocytopenia, POA -White blood cell count on admission was 0.4 currently 0.1 -No overt signs of bleeding, s/p 1unit 10/24, 10/25, transfuse plt as needed per oncology AML with severe neutropenia, dxed in 10/12/2016, CBC on 10/29 showed concerning 20 % blast, start reinduction chemo 10/30 for 7days. Newly found bilateral epididymitis on US testicle, on 10/28, unclear clinical significance of this, possible leukemic infiltration, stable, unlikely new source of infection and patient also covered well with abx. chronic, stable Hypertension,resumed dilt as HD remains stable -Blood pressure currently 146/72 -Continue home dose of diltiazem 180 mg PO daily Disposition: Patient is responding to treatment well. The patient's blood pressure seems to be increasing steadily will begin treating the hypertension with hydralazine and adjust as medically necessary. Patient will continue his treatment for the next 2-1/2 weeks as per oncology. diet:regular as tolerate dvt ppx:SCD Full Code VTE Mechanical Devices: Intermittant Pneumatic CD Time spent Greater than 35 minutes Shi Luna DO Nov 03, 2016 16:09
[2016-11-03] MEDS: CYTARABINE IV SCH (16:18)
[2016-11-03] MEDS: LORazepam 1 mg Tablet PO PRN (21:20)
[2016-11-04] VITALS (10 sets, daily range): BP systolic 134–168; BP diastolic 69–82; PULSE 53–66; RESP 14–17; O2SAT 99–100
[2016-11-04 04:24] LABS: Mean Corpuscular Hemoglobin 29.3 pg (27.0-35.0); Mean Corpuscular Volume 85.2 fL (81-100); Platelet Count 28 bil/L (150-400)
[2016-11-04 04:31] LABS: Phosphorus 3.1 mg/dL (2.5-4.9)
[2016-11-04 04:45] LABS: BASOPHILS % (AUTO) 0 % (0-3); EOSINOPHILS % (AUTO) 0 % (0-5); MONOCYTES % (AUTO) 0 % (4-12); NEUTROPHILS % (AUTO) 0 % (40-74)
[2016-11-04] MEDS: Pantoprazole 20 mg ER24 Tablet PO SCH (06:03)
[2016-11-04] MEDS: Meropenem Inj 2,000 MG in 0.9% Sodium Chloride 100 ML IV SCH ×3 (06:03→23:18)
[2016-11-04] MEDS: Mupirocin 2% 22 Gm Ointment TOPICAL SCH ×2 (08:06→21:20)
[2016-11-04] MEDS: Nystatin 100,000 Unit/mL 5 mL Suspension PO SCH ×4 (08:06→21:27)
[2016-11-04] MEDS: Diltiazem CD 180 mg ER24 Capsule PO SCH (08:06)
[2016-11-04] MEDS: POSACONAZOLE PO SCH ×3 (08:06→17:40)
--- NOTE | 2016-11-04 08:41 | PROG NOTE ---
[address] [address] PROGRESS NOTE PATIENT: JEFF AMEZCUA : 1945 MR#: [id number] ADMIT: 10/24/2016 JOB ID: [id number] DATE: 11/04/2016 INFECTIOUS DISEASE FOLLOWUP NOTE: REASON FOR FOLLOWUP: Neutropenia with pseudomonas sepsis followed by anterior neck infection. INTERVAL HISTORY: The patient continues to be free of fevers, chills, or sweats. He has no headache, no sore throat. No significant cough. No abdominal pain. No nausea, vomiting, or diarrhea. PHYSICAL EXAMINATION: Reveals an afebrile gentleman, temp 37.2, pulse 53, respiratory rate 16, blood pressure 165/77. He is saturating 100% on room air and is very comfortable. The patient is sitting up in bed, awake, alert. Eyes without conjunctivitis. The anterior neck lesions are almost completely healed at this point. There is no tenderness or warmth there. Lungs quite clear posteriorly. Cardiac tones with a 2/6 murmur heard at the right upper chest as before. The abdomen is soft and nontender. The extremities very well perfused. The minimal lower extremity edema he had previously has almost resolved. LABORATORIES: Include a white count 100, platelet count 28,000. Creatinine 0.47. LFT normal except for an ALT of 68, albumin 3.3. Procalcitonin was last done a few days ago and was basically 0. Fungitell and galactomannan done on the have returned negative. No new cultures. His blood cultures from the are all negative. IMAGING: We have no recent imaging. IMPRESSION: This patient continues to do quite well as he undergoes re-induction for his acute myeloid leukemia. Recall that after the initial induction the patient came back with blasts and now has been reinduced. He has been absolutely neutropenic for well over a month at this point with the prospect of remaining neutropenic for at least a couple more weeks. At this point, I think our best bet is to continue with the meropenem, though we may think about modifying the antibiotics next week. RECOMMENDATIONS: 1. Will continue with meropenem and posaconazole. 2. Note that the posaconazole level came back at 0.5 which is right in the ballpark we wanted for prophylaxis. 3. Repeat galactomannan and Fungitell will be ordered today. 4. Note that I will be out of town for the next three days but can be reached by telephone or text message as needed about this or any other patients. I will be back Tuesday morning.
[2016-11-04] MEDS: Nystatin 100,000 Unit/Gm 15 Gm Powder TOPICAL PRN ×2 (12:01→21:20)
[2016-11-04] MEDS: SODIUM CHLORIDE 0.9% IV SCH ×2 (13:36→16:09)
[2016-11-04] MEDS: SODIUM BICARB IV SCH (13:36)
[2016-11-04] MEDS ORDERED: 0.9% Sodium Chloride 250 ML ONE (14:43)
--- NOTE | 2016-11-04 14:44 | PCM.PNMED ---
Subjective Date of Service Nov 04, 2016 Subjective Patient was seen and examined at bedside today. Patient denies any chest pain, shortness of breath, nausea, vomiting, diarrhea. Exam Vital Signs Vital Sign - Last Date Time Temp Pulse Resp B/P Pulse Ox O2 Delivery O2 Flow Rate FiO2 11/04/16 11:41 36.6 65 17 168/74 100 Room Air Intake and Output 11/03/16 11/03/16 11/04/16 Cumulative From/Thru 15:00 23:00 07:00 10/24/16 06:05 - 11/04/16 06:12 Intake Total 2589 ml 2763 ml 11104 ml Output Total 3000 ml 3100 ml 71592 ml Balance -411 ml -337 ml 4181 ml Intake Oral 1400 ml 1500 ml 54251 ml IV Total 1189 ml 1263 ml 61255 ml Packed Cells 900 ml Platelets 1259 ml Output Urine Total 3000 ml 3100 ml 78870 ml # Bowel Movements 1 3 Exam Physical Exam: GEN: Patient was awake, alert, responding appropriately to questions HEENT: PERRLA, EOMI, Neck soft supple, trachea midline, nomocephalic/atraumatic CV: +S1/S2, RRR, no murmur auscultated Respiratory: CTAB, no wheezes, rales, rhonchi GI: +bowel sounds x4, soft, compressible, non TTP EXT: no c/c/ +2 pitting edema bilaterally improved Neuro: CN II-XII grossly intact Psych: mood and affect were appropriate IVs and Medications Medications Reviewed: Medications were reviewed in detail Lab and Diagnostics Result Diagram: 11/04/16 0400 11/04/16 0400 X-Rays, CTs and MRIs PROCEDURE: X-RAY CHEST ONE VIEW, PORTABLE ([id number]) INDICATIONS: 71 year-old male with neutropenic fevers. TECHNIQUE: One view of the chest was acquired. COMPARISON: None. FINDINGS: Surgical changes and devices: Right PICC is present, with tip in the upper superior vena cava. Lungs and pleura: No pleural effusions or pneumothorax. Lungs are clear. Mediastinum: Mediastinal contours appear normal. Heart size is normal. There is aortic atherosclerosis. Bones and chest wall: No suspicious bony lesions. Overlying soft tissues appear unremarkable. IMPRESSION: No acute cardiopulmonary disease. Dictated by: Shawn Marcial M.D. on 10/24/2016 at 7:29 Approved by: Shawn Marcial M.D. on 10/24/2016 at 7:29 Additional Diagnostics PROCEDURE: US SOFT TISSUE OF HEAD OR NECK SONOGRAM INDICATIONS: 71 year-old male with neutropenic fevers and neck swelling. Assess for abscess. TECHNIQUE: Real-time scanning was performed of the neck region of interest, with image documentation. COMPARISON: None. FINDINGS: In the region of interest, no fluid collections identified to suggest abscess. Normal-appearing sternocleidomastoid muscles are identified. No enlarged lymph nodes identified. IMPRESSION: No sonographic evidence for neck abscess. Dictated by: Shawn Marcial M.D. on 10/24/2016 at 8:02 Approved by: Shawn Marcial M.D. on 10/24/2016 at 8:03 Assessment & Plan 71 yo M w/ recent hospitalization 10/08-10/19 with newly diagnosed AML s/p induction ctx, pseudomonas bacteremia p/w fever with neck started 2days ago. acute, active Sepsis, SIRS+ fever/severe leukopenia/tachycardia,likely source:neck soft tissue infection with micro injury from shaving, possibly staph or strep, unlikely other infectious source-PICC seemed okay on exam, no oral thrush, CXR/ UA unremarkable. no GI/respiratory sx. no signs of [employer] infection. -clinically stable with stable hemodynamics, afebrile -Infectious disease has been consulted - appreciate ID input regarding abx of choice -Continue vancomycin, meropenem 2g q8h, ppx dose acyclovir to 200 tid and antifungals, stop acyclovir 10/27 given negative HSV serology, possibly stop vancomycin, defer to ID. -Blood culture negative 5 days - MRSA negative awaits -Cryptococcus antigen negative -Galactomannan Ag, and fungal antibodies culture pending -serial neck exam to monitor response -tylenol for fever -continue fentanyl prn given multiple opioid allergies -trends fever curve, procalcitonin. -s/p IVF NS 100cc/hr stopped 10/28 given possible fluid overload, -monitor serial scrotal exam, will consider input if it worsens but currently seems to be improving -Bactroban cream twice a day to cellulitic lesions on the neck bilaterally Hypertension - Blood pressure 168/74 -Increase hydralazine to 30 mg PO 4 times a day -We will continue to monitor Volume overload -Patient still has +1 pitting edema genital swelling has resolved -Continue Lasix 40 mg daily by mouth daily -We will continue to follow and manage improving daily Inguinal rash most likely fungal (resolved) -Continue nystatin powder Chronic hyponatremia-possibly secondary to hydrochlorothiazide, POA, currently not on HCTZ and mildly worsened, likely also component of recent chemo (resolved ) - Sodium 125 on admission -Currently stable current sodium is 138 - Discontinue normal saline Chronic anemia, POA -h/h mildly dropped from 2days ago <1g/dl, -Currently stable H&H is 8.8/25.5 -We will transfuse as needed if hemoglobin drops below 7 Thrombocytopenia, POA -White blood cell count on admission was 0.4 currently 0.1 -No overt signs of bleeding, s/p 1unit 10/24, 10/25, transfuse plt as needed per oncology AML with severe neutropenia, dxed in 10/12/2016, CBC on 10/29 showed concerning 20 % blast, start reinduction chemo 10/30 for 7days. Newly found bilateral epididymitis on US testicle, on 10/28, unclear clinical significance of this, possible leukemic infiltration, stable, unlikely new source of infection and patient also covered well with abx. chronic, stable Hypertension,resumed dilt as HD remains stable -Blood pressure currently 146/72 -Continue home dose of diltiazem 180 mg PO daily Disposition: Patient is responding to treatment well. The patient's blood pressure seems to be increasing steadily we will increase his blood pressure medications and adjust as medically necessary. Patient will continue his treatment for the next 2-1/2 weeks as per oncology. diet:regular as tolerate dvt ppx:SCD Full Code VTE Mechanical Devices: Intermittant Pneumatic CD Time spent Greater than 35 minutes Shi Luna DO Nov 04, 2016 14:44
[2016-11-04] MEDS: Dexamethasone 10 mg/50 mL NS IV SCH ×2 (15:07)
[2016-11-04] MEDS: CYTARABINE IV SCH (16:09)
[2016-11-04] MEDS: LORazepam 1 mg Tablet PO PRN (21:20)
--- NOTE | 2016-11-04 23:12 | PROG NOTE ---
[address] [address] PROGRESS NOTE PATIENT: JEFF AMEZCUA : 1945 MR#: [id number] ADMIT: 10/24/2016 JOB ID: [id number] DATE: 11/04/2016 SUBJECTIVE: The patient is a 71-year-old gentleman with acute myelogenous leukemia, undergoing re-induction chemotherapy for acute myelogenous leukemia. Please refer to prior notes for full history. He is due to begin day six Mariaa-C later today. He notes some ongoing hair loss. He has had some edema, improved with diuresis. No fevers since admission. At that time, he had evidence of cellulitis over the neck and upper chest, which has mostly resolved. He remains on broad-spectrum antibiotic coverage with meropenem 2 g IV every 8 hours and posaconazole 200 mg by mouth three times daily. No significant pain. No shortness of breath. No bleeding or atypical bruising. OBJECTIVE: Vitals: T 36.9, P 61, R 14, BP 147/77. HEENT: Conjunctivae slightly pale. Mucous membranes moist. Neck: Erythema in the neck is improved. Chest: Clear. Cardiac exam: Regular rate and rhythm with normal S1, S2. Abdomen: Soft, nontender. No splenomegaly or masses. Extremities: Trace lower extremity edema. 2+ distal pulses. LABORATORIES: WBC 0.1, hemoglobin 9.1, hematocrit 26.5%, platelets 28,000. Sodium 138, potassium 4.1, BUN 19, creatinine 0.47, glucose 132, AST 20, ALT 68, alkaline phosphatase 95, total bilirubin 0.5. ASSESSMENT AND PLAN: Acute myelogenous leukemia: Initial induction chemotherapy with seven 4 plus 3 began on October 11, 2016. Due to evidence of residual leukemia, he began re-induction chemotherapy with 7 plus 3 on October 30, 2016. Day six Mariaa-C starts approximately three o'clock this afternoon. White blood cell count has fallen to 0.1. Hemoglobin and hematocrit are significantly decreased, but without indication for transfusion support at this time. Please use irradiated blood products if needed. Continue broad-spectrum antibiotics under the guidance of Dr. Jorge Luis Hackett. Cultures this hospitalization remain negative. He will complete his current course of re-induction chemotherapy on Tuesday afternoon. Anticipate continued hospitalization until recovery of his neutropenia, which may be 2-3 weeks after completion of his chemotherapy.
[2016-11-05] VITALS (9 sets, daily range): BP systolic 140–164; BP diastolic 68–86; PULSE 51–59; RESP 16–18; O2SAT 99–100
[2016-11-05] MEDS: SODIUM CHLORIDE 0.9% IV SCH ×3 (02:06→16:15)
[2016-11-05] MEDS: SODIUM BICARB IV SCH ×2 (02:06→16:04)
[2016-11-05] MEDS: Pantoprazole 20 mg ER24 Tablet PO SCH (06:21)
[2016-11-05] MEDS: Meropenem Inj 2,000 MG in 0.9% Sodium Chloride 100 ML IV SCH ×3 (06:22→23:04)
[2016-11-05 06:43] LABS: Mean Corpuscular Hemoglobin 28.9 pg (27.0-35.0); Mean Corpuscular Volume 86.2 fL (81-100)
[2016-11-05 06:57] LABS: Platelet Count 22 bil/L (150-400)
[2016-11-05] MEDS: POSACONAZOLE PO SCH ×3 (08:23→16:50)
[2016-11-05] MEDS: Mupirocin 2% 22 Gm Ointment TOPICAL SCH ×2 (08:24→21:44)
[2016-11-05] MEDS: Nystatin 100,000 Unit/mL 5 mL Suspension PO SCH ×4 (08:24→21:49)
[2016-11-05] MEDS: Nystatin 100,000 Unit/Gm 15 Gm Powder TOPICAL PRN (08:43)
[2016-11-05] MEDS: Sodium Chloride NAS 45 mL Spray NASAL PRN (08:43)
[2016-11-05] MEDS: Diltiazem CD 180 mg ER24 Capsule PO SCH (08:51)
--- NOTE | 2016-11-05 13:07 | PCM.PNMED ---
Subjective Date of Service Nov 05, 2016 Subjective Oncology Progress Note Patient is a 71-year-old gentleman with acute myelogenous leukemia, undergoing re-induction chemotherapy who was admitted for cellulitis of the neck after a close shave with a razor. He is on day 7 of Mariaa-C today.He has not had any fevers since admission. He is continuing broad spectrum antibiotic coverage with meropenem and posaconazole. Today, he reports some lower extremity edema, worse on the left leg, but denies any leg pain, chest pain, or shortness of breath. He also denies coughing, wheezing, fevers, chills, nausea, vomiting, weakness, or syncope. Exam Vital Signs Vital Sign - Last Date Time Temp Pulse Resp B/P Pulse Ox O2 Delivery O2 Flow Rate FiO2 11/05/16 11:53 36.7 56 16 160/81 100 Room Air Intake and Output 11/04/16 11/04/16 11/05/16 Cumulative From/Thru 15:00 23:00 07:00 10/24/16 06:05 - 11/05/16 06:19 Intake Total 2435 ml 2305 ml 46419 ml Output Total 1900 ml 2600 ml 58012 ml Balance 535 ml -295 ml 4421 ml Intake Oral 1130 ml 1200 ml 19171 ml IV Total 1305 ml 1105 ml 76336 ml Packed Cells 900 ml Platelets 1259 ml Output Urine Total 1900 ml 2600 ml 00552 ml # Bowel Movements 0 3 Exam General: Alert, Oriented X3, Cooperative, No acute distress HEENT: Normocephalic, atraumatic. External ears normal. PERRLA, EOMI. Anicteric sclerae. Mouth: Mouth normal, Mucous membranes moist/pink Neck: Neck supple with full range of motion. Two areas of erythema on anterior neck have improved significantly and appear stable. Chest& Lungs: Clear to auscultation bilaterally with no crackles, wheezes, or rhonchi. Cardiovascular: Regular rate/rhythm, Normal S1, Normal S2, No murmurs/rubs/ gallops Abdomen: Non-tender, Non-distended, No masses, Normoactive bowel tones, Soft Musculoskeletal: Normal strength and range of motion Extremities: Mild lower extremity pitting edema bilaterally, L>R. 2+ distal pulses. Neurological: Grossly neurologically intact. Normal speech Lab and Diagnostics Result Diagram: 11/05/1615 11/05/16514 X-Rays, CTs and MRIs PROCEDURE: X-RAY CHEST ONE VIEW, PORTABLE ([id number]) INDICATIONS: 71 year-old male with neutropenic fevers. TECHNIQUE: One view of the chest was acquired. COMPARISON: None. FINDINGS: Surgical changes and devices: Right PICC is present, with tip in the upper superior vena cava. Lungs and pleura: No pleural effusions or pneumothorax. Lungs are clear. Mediastinum: Mediastinal contours appear normal. Heart size is normal. There is aortic atherosclerosis. Bones and chest wall: No suspicious bony lesions. Overlying soft tissues appear unremarkable. IMPRESSION: No acute cardiopulmonary disease. Dictated by: Shawn Marcial M.D. on 10/24/2016 at 7:29 Approved by: Shawn Marcial M.D. on 10/24/2016 at 7:29 Additional Diagnostics PROCEDURE: US SOFT TISSUE OF HEAD OR NECK SONOGRAM INDICATIONS: 71 year-old male with neutropenic fevers and neck swelling. Assess for abscess. TECHNIQUE: Real-time scanning was performed of the neck region of interest, with image documentation. COMPARISON: None. FINDINGS: In the region of interest, no fluid collections identified to suggest abscess. Normal-appearing sternocleidomastoid muscles are identified. No enlarged lymph nodes identified. IMPRESSION: No sonographic evidence for neck abscess. Dictated by: Shawn Marcial M.D. on 10/24/2016 at 8:02 Approved by: Shawn Marcial M.D. on 10/24/2016 at 8:03 Assessment & Plan 1. Acute myelogenous leukemia. - Initial induction chemotherapy with seven 4 plus 3 began on October 11, 2016. He began re-induction chemotherapy on October 30, 2016 as his peripheral blood showed 20% circulating blasts, indicating residual leukemia. He is currently on day 7 of MARIAA-C. He will complete is current course of re-induction chemotherapy tomorrow afternoon. WBC remains at 0.1. Hb and Hct fairly stable at 8.8 and 26.2 respectively. Platelets 22 today, down from 28. - Continue to monitor CBC daily - Please use irradiated blood products if required - Re-induction chemotherapy to complete tomorrow - Anticipate continued hospitalization until recovery of neutropenia - likely 2- 3 weeks after completion of chemotherapy. 2. Cellulitis of the neck and upper chest. Stable. Patient presented with cellulitis in the setting of pancytopenia from recent induction chemotherapy for acute myelogenous leukemia. His neck lesions appear stable and are healing well. Blood cultures show no growth at this time. Nasal swab for MRSA was negative. He will continue on broad-spectrum coverage with meropenem and posaconazole until he recovers from his neutropenia. - Continue meropenem and posaconazole per Dr. Hackett VTE Mechanical Devices: Intermittant Pneumatic CD Patrick Castillo Nov 05, 2016 13:07
[2016-11-05] MEDS: Dexamethasone 10 mg/50 mL NS IV SCH ×2 (14:50)
[2016-11-05] MEDS: CYTARABINE IV SCH (16:15)
--- NOTE | 2016-11-05 16:49 | PCM.PNMED ---
Subjective Date of Service Nov 05, 2016 Subjective Patient was seen and examined at bedside today. Patient denies any chest pain, shortness of breath, nausea, vomiting, diarrhea. Exam Vital Signs Vital Sign - Last Date Time Temp Pulse Resp B/P Pulse Ox O2 Delivery O2 Flow Rate FiO2 11/05/16 16:08 36.8 59 16 142/73 100 Room Air Intake and Output 11/04/16 11/04/16 11/05/16 Cumulative From/Thru 15:00 23:00 07:00 10/24/16 06:05 - 11/05/16 06:19 Intake Total 2435 ml 2305 ml 91597 ml Output Total 1900 ml 2600 ml 78405 ml Balance 535 ml -295 ml 4421 ml Intake Oral 1130 ml 1200 ml 12039 ml IV Total 1305 ml 1105 ml 97873 ml Packed Cells 900 ml Platelets 1259 ml Output Urine Total 1900 ml 2600 ml 19314 ml # Bowel Movements 0 3 Exam Physical Exam: GEN: Patient was awake, alert, responding appropriately to questions HEENT: PERRLA, EOMI, Neck soft supple, trachea midline, neck lesions currently healing CV: +S1/S2, RRR, no murmur auscultated Respiratory: CTAB, no wheezes, rales, rhonchi GI: +bowel sounds x4, soft, compressible, non TTP EXT: no c/c/e, +1 pitting edema improved from yesterday Neuro: CN II-XII grossly intact Psych: mood and affect were appropriate IVs and Medications Medications Reviewed: Medications were reviewed in detail Lab and Diagnostics Result Diagram: 11/05/1651411/05/16514 X-Rays, CTs and MRIs PROCEDURE: X-RAY CHEST ONE VIEW, PORTABLE ([id number]) INDICATIONS: 71 year-old male with neutropenic fevers. TECHNIQUE: One view of the chest was acquired. COMPARISON: None. FINDINGS: Surgical changes and devices: Right PICC is present, with tip in the upper superior vena cava. Lungs and pleura: No pleural effusions or pneumothorax. Lungs are clear. Mediastinum: Mediastinal contours appear normal. Heart size is normal. There is aortic atherosclerosis. Bones and chest wall: No suspicious bony lesions. Overlying soft tissues appear unremarkable. IMPRESSION: No acute cardiopulmonary disease. Dictated by: Shawn Marcial M.D. on 10/24/2016 at 7:29 Approved by: Shawn Marcial M.D. on 10/24/2016 at 7:29 Additional Diagnostics PROCEDURE: US SOFT TISSUE OF HEAD OR NECK SONOGRAM INDICATIONS: 71 year-old male with neutropenic fevers and neck swelling. Assess for abscess. TECHNIQUE: Real-time scanning was performed of the neck region of interest, with image documentation. COMPARISON: None. FINDINGS: In the region of interest, no fluid collections identified to suggest abscess. Normal-appearing sternocleidomastoid muscles are identified. No enlarged lymph nodes identified. IMPRESSION: No sonographic evidence for neck abscess. Dictated by: Shawn Marcial M.D. on 10/24/2016 at 8:02 Approved by: Shawn Marcial M.D. on 10/24/2016 at 8:03 Assessment & Plan 71 yo M w/ recent hospitalization 10/08-10/19 with newly diagnosed AML s/p induction ctx, pseudomonas bacteremia p/w fever with neck started 2days ago. acute, active Sepsis, SIRS+ fever/severe leukopenia/tachycardia,likely source:neck soft tissue infection with micro injury from shaving, possibly staph or strep, unlikely other infectious source-PICC seemed okay on exam, no oral thrush, CXR/ UA unremarkable. no GI/respiratory sx. no signs of LVN infection. -clinically stable with stable hemodynamics, afebrile -Infectious disease has been consulted - appreciate ID input regarding abx of choice -Continue vancomycin, meropenem 2g q8h, ppx dose acyclovir to 200 tid and antifungals, stop acyclovir 10/27 given negative HSV serology, possibly stop vancomycin, defer to ID. -Blood culture negative 5 days - MRSA negative awaits -Cryptococcus antigen negative -Galactomannan Ag, and fungal antibodies culture pending -serial neck exam to monitor response -tylenol for fever -continue fentanyl prn given multiple opioid allergies -trends fever curve, procalcitonin. -s/p IVF NS 100cc/hr stopped 10/28 given possible fluid overload, -monitor serial scrotal exam, will consider input if it worsens but currently seems to be improving -Bactroban cream twice a day to cellulitic lesions on the neck bilaterally Hypertension - Blood pressure 168/74 -Increase hydralazine to 20 mg PO 3 times a day, 30 mg 2 at bedtime -We will continue to monitor Volume overload -Patient still has +1 pitting edema genital swelling has resolved -Continue Lasix 40 mg daily by mouth daily -We will continue to follow and manage improving daily Inguinal rash most likely fungal (resolved) -Continue nystatin powder Chronic hyponatremia-possibly secondary to hydrochlorothiazide, POA, currently not on HCTZ and mildly worsened, likely also component of recent chem - Sodium 125 on admission -Today's sodium is 133 yesterday it was stable at 138 -We will do a one-time bolus of 500 normal saline IV Chronic anemia, POA -h/h mildly dropped from 2days ago <1g/dl, -Currently stable H&H is 8.8/25.5 -We will transfuse as needed if hemoglobin drops below 7 Thrombocytopenia, POA -White blood cell count on admission was 0.4 currently 0.1 -No overt signs of bleeding, s/p 1unit 10/24, 10/25, transfuse plt as needed per oncology AML with severe neutropenia, dxed in 10/12/2016, CBC on 10/29 showed concerning 20 % blast, start reinduction chemo 10/30 for 7days. Newly found bilateral epididymitis on US testicle, on 10/28, unclear clinical significance of this, possible leukemic infiltration, stable, unlikely new source of infection and patient also covered well with abx. chronic, stable Hypertension,resumed dilt as HD remains stable -Blood pressure currently 146/72 -Continue home dose of diltiazem 180 mg PO daily Disposition: Patient is responding to treatment well. Patient's blood pressure does seem to be increasing but specifically at night. We will increase the patient's nighttime dose to 30 mg of hydralazine and continue the other 3 dosages at 20 mg daily. Patient did have some hyponatremia and we will give him a one-time bolus of 500 mL of normal saline. diet:regular as tolerate dvt ppx:SCD Full Code VTE Mechanical Devices: Intermittant Pneumatic CD Time spent greater than 35min Shi Luna DO Nov 05, 2016 16:49
[2016-11-05] MEDS ORDERED: 0.9% Sodium Chloride 500 ML IV ONE (16:50)
[2016-11-05] MEDS: LORazepam 1 mg Tablet PO PRN (21:47)
[2016-11-06] VITALS (7 sets, daily range): BP systolic 133–152; BP diastolic 70–80; PULSE 52–90; RESP 16–22; O2SAT 97–100
[2016-11-06 05:53] LABS: Mean Corpuscular Hemoglobin 29.2 pg (27.0-35.0); Mean Corpuscular Volume 86.1 fL (81-100)
[2016-11-06 05:58] LABS: Platelet Count 24 bil/L (150-400)
[2016-11-06] MEDS: Pantoprazole 20 mg ER24 Tablet PO SCH (06:31)
[2016-11-06] MEDS: Meropenem Inj 2,000 MG in 0.9% Sodium Chloride 100 ML IV SCH ×3 (06:32→22:43)
[2016-11-06] MEDS: SODIUM BICARB IV SCH ×2 (08:42→22:42)
[2016-11-06] MEDS: SODIUM CHLORIDE 0.9% IV SCH ×2 (08:42→22:42)
[2016-11-06] MEDS ORDERED: 0.9% Sodium Chloride 250 ML ONE (10:35)
[2016-11-06] MEDS: POSACONAZOLE PO SCH ×3 (10:40→16:49)
[2016-11-06] MEDS: Nystatin 100,000 Unit/mL 5 mL Suspension PO SCH ×4 (10:40→21:26)
[2016-11-06] MEDS: Diltiazem CD 180 mg ER24 Capsule PO SCH (10:41)
[2016-11-06] MEDS: Mupirocin 2% 22 Gm Ointment TOPICAL SCH ×2 (12:08→21:26)
[2016-11-06] MEDS ORDERED: 0.9% Sodium Chloride 500 ML IV ONE (14:30)
--- NOTE | 2016-11-06 14:30 | PCM.PNMED ---
Subjective Date of Service Nov 06, 2016 Subjective Patient was seen and examined at bedside today. Patient denies any chest pain, shortness of breath, nausea, vomiting, diarrhea. Exam Vital Signs Vital Sign - Last Date Time Temp Pulse Resp B/P Pulse Ox O2 Delivery O2 Flow Rate FiO2 11/06/16 12:59 36.8 66 18 152/73 100 Room Air Intake and Output 11/05/16 11/05/16 11/06/16 Cumulative From/Thru 15:00 23:00 07:00 10/24/16 06:05 - 11/06/16 06:55 Intake Total 930 ml 3003 ml 95582 ml Output Total 2700 ml 3225 ml 96849 ml Balance -1770 ml -222 ml 2429 ml Intake Oral 930 ml 240 ml 40400 ml IV Total 2763 ml 49260 ml Packed Cells 900 ml Platelets 1259 ml Output Urine Total 2700 ml 3225 ml 63646 ml # Voids 6 6 # Bowel Movements 3 0 6 Exam Physical Exam: GEN: Patient was awake, alert, responding appropriately to questions HEENT: PERRLA, EOMI, Neck soft supple cellulitic lesions currently healing, trachea midline, nomocephalic/atraumatic CV: +S1/S2, RRR, no murmur auscultated Respiratory: CTAB, no wheezes, rales, rhonchi GI: +bowel sounds x4, soft, compressible, non TTP EXT: no c/c trace edema in the left lower extremity only Neuro: CN II-XII grossly intact Psych: mood and affect were appropriate IVs and Medications Medications Reviewed: Medications were reviewed in detail Lab and Diagnostics Result Diagram: 11/06/16 0500 11/06/16 0500 X-Rays, CTs and MRIs PROCEDURE: X-RAY CHEST ONE VIEW, PORTABLE ([id number]) INDICATIONS: 71 year-old male with neutropenic fevers. TECHNIQUE: One view of the chest was acquired. COMPARISON: None. FINDINGS: Surgical changes and devices: Right PICC is present, with tip in the upper superior vena cava. Lungs and pleura: No pleural effusions or pneumothorax. Lungs are clear. Mediastinum: Mediastinal contours appear normal. Heart size is normal. There is aortic atherosclerosis. Bones and chest wall: No suspicious bony lesions. Overlying soft tissues appear unremarkable. IMPRESSION: No acute cardiopulmonary disease. Dictated by: Shawn Marcial M.D. on 10/24/2016 at 7:29 Approved by: Shawn Marcial M.D. on 10/24/2016 at 7:29 Additional Diagnostics PROCEDURE: US SOFT TISSUE OF HEAD OR NECK SONOGRAM INDICATIONS: 71 year-old male with neutropenic fevers and neck swelling. Assess for abscess. TECHNIQUE: Real-time scanning was performed of the neck region of interest, with image documentation. COMPARISON: None. FINDINGS: In the region of interest, no fluid collections identified to suggest abscess. Normal-appearing sternocleidomastoid muscles are identified. No enlarged lymph nodes identified. IMPRESSION: No sonographic evidence for neck abscess. Dictated by: Shawn Marcial M.D. on 10/24/2016 at 8:02 Approved by: Shawn Marcial M.D. on 10/24/2016 at 8:03 Assessment & Plan 71 yo M w/ recent hospitalization 10/08-10/19 with newly diagnosed AML s/p induction ctx, pseudomonas bacteremia p/w fever with neck started 2days ago. acute, active Sepsis, SIRS+ fever/severe leukopenia/tachycardia,likely source:neck soft tissue infection with micro injury from shaving, possibly staph or strep, unlikely other infectious source-PICC seemed okay on exam, no oral thrush, CXR/ UA unremarkable. no GI/respiratory sx. no signs of RN NEW GRADUATE infection. -clinically stable with stable hemodynamics, afebrile -Infectious disease has been consulted - appreciate ID input regarding abx of choice -Continue vancomycin, meropenem 2g q8h, ppx dose acyclovir to 200 tid and antifungals, stop acyclovir 10/27 given negative HSV serology, possibly stop vancomycin, defer to ID. -Blood culture negative 5 days - MRSA negative awaits -Cryptococcus antigen negative -Galactomannan Ag, and fungal antibodies culture pending -serial neck exam to monitor response -tylenol for fever -continue fentanyl prn given multiple opioid allergies -trends fever curve, procalcitonin. -s/p IVF NS 100cc/hr stopped 10/28 given possible fluid overload, -monitor serial scrotal exam, will consider input if it worsens but currently seems to be improving -Bactroban cream twice a day to cellulitic lesions on the neck bilaterally Hypertension - Blood pressure 168/74 -Increase hydralazine to 30 mg PO 3 times a day, 40 mg at bedtime -We will continue to monitor Volume overload -Patient still has +1 pitting edema genital swelling has resolved -Continue Lasix 40 mg daily by mouth daily -We will continue to follow and manage improving daily Inguinal rash most likely fungal (resolved) -Continue nystatin powder Chronic hyponatremia-possibly secondary to hydrochlorothiazide, POA, currently not on HCTZ and mildly worsened, likely also component of recent chem - Sodium 125 on admission -Today's sodium is 135 yesterday it was stable at 133 -We will do a one-time bolus of 500 normal saline IV today 11/06/2016 Chronic anemia, POA -h/h mildly dropped from 2days ago <1g/dl, -Currently stable H&H is 8.8/25.5 -We will transfuse as needed if hemoglobin drops below 7 Thrombocytopenia, POA -White blood cell count on admission was 0.4 currently 0.1 -No overt signs of bleeding, s/p 1unit 10/24, 10/25, transfuse plt as needed per oncology AML with severe neutropenia, dxed in 10/12/2016, CBC on 10/29 showed concerning 20 % blast, start reinduction chemo 10/30 for 7days. Newly found bilateral epididymitis on US testicle, on 10/28, unclear clinical significance of this, possible leukemic infiltration, stable, unlikely new source of infection and patient also covered well with abx. chronic, stable Hypertension,resumed dilt as HD remains stable -Blood pressure currently 146/72 -Continue home dose of diltiazem 180 mg PO daily Disposition: Patient is responding to treatment well. We will continue to increase the patient's blood pressure medication and manage the patient's hypertension. Patient's hyponatremia has resolved patient sodium is currently 135 we will bolus patient another 500 mL of normal saline today. diet:regular as tolerate dvt ppx:SCD Full Code VTE Mechanical Devices: Intermittant Pneumatic CD Time spent 30 minutes Shi Luna DO Nov 06, 2016 14:30
[2016-11-06] MEDS: LORazepam 1 mg Tablet PO PRN (21:24)
[2016-11-07] VITALS (8 sets, daily range): BP systolic 111–130; BP diastolic 60–70; PULSE 60–71; RESP 16–20; O2SAT 98–100
[2016-11-07] MEDS: Pantoprazole 20 mg ER24 Tablet PO SCH (06:02)
[2016-11-07] MEDS: Meropenem Inj 2,000 MG in 0.9% Sodium Chloride 100 ML IV SCH ×3 (06:03→23:46)
[2016-11-07 06:44] LABS: Mean Corpuscular Hemoglobin 29.1 pg (27.0-35.0); Mean Corpuscular Volume 85.6 fL (81-100)
[2016-11-07 07:42] LABS: Platelet Count 13 bil/L (150-400)
[2016-11-07] MEDS: POSACONAZOLE PO SCH ×3 (10:26→18:37)
[2016-11-07] MEDS: Diltiazem CD 180 mg ER24 Capsule PO SCH (10:26)
[2016-11-07] MEDS: Nystatin 100,000 Unit/mL 5 mL Suspension PO SCH ×4 (10:26→20:49)
[2016-11-07] MEDS: Mupirocin 2% 22 Gm Ointment TOPICAL SCH ×2 (11:30→20:49)
--- NOTE | 2016-11-07 12:46 | PCM.PNMED ---
Subjective Date of Service Nov 07, 2016 Subjective Patient was seen and examined at bedside today. Patient denies any chest pain, shortness of breath, nausea, vomiting, diarrhea. Exam Vital Signs Vital Sign - Last Date Time Temp Pulse Resp B/P Pulse Ox O2 Delivery O2 Flow Rate FiO2 11/07/16 09:48 64 11/07/16 04:52 36.2 16 129/67 100 Room Air Intake and Output 11/06/16 11/06/16 11/07/16 Cumulative From/Thru 15:00 23:00 07:00 10/24/16 06:05 - 11/07/16 05:00 Intake Total 2683 ml 1045 ml 23908 ml Output Total 2800 ml 82453 ml Balance -117 ml 1045 ml 3357 ml Intake Oral 836 ml 67193 ml IV Total 1847 ml 1045 ml 00654 ml Packed Cells 900 ml Platelets 1259 ml Output Urine Total 2800 ml 87575 ml # Voids 6 # Bowel Movements 6 Exam Physical Exam: GEN: Patient was awake, alert, responding appropriately to questions HEENT: PERRLA, EOMI, Neck soft supple, trachea midline, nomocephalic/atraumatic CV: +S1/S2, RRR, no murmur auscultated Respiratory: CTAB, no wheezes, rales, rhonchi GI: +bowel sounds x4, soft, compressible, non TTP EXT: no c/c/e Neuro: CN II-XII grossly intact Psych: mood and affect were appropriate Lab and Diagnostics Result Diagram: 11/07/16 0545 11/07/16 0545 X-Rays, CTs and MRIs PROCEDURE: X-RAY CHEST ONE VIEW, PORTABLE ([id number]) INDICATIONS: 71 year-old male with neutropenic fevers. TECHNIQUE: One view of the chest was acquired. COMPARISON: None. FINDINGS: Surgical changes and devices: Right PICC is present, with tip in the upper superior vena cava. Lungs and pleura: No pleural effusions or pneumothorax. Lungs are clear. Mediastinum: Mediastinal contours appear normal. Heart size is normal. There is aortic atherosclerosis. Bones and chest wall: No suspicious bony lesions. Overlying soft tissues appear unremarkable. IMPRESSION: No acute cardiopulmonary disease. Dictated by: Shawn Marcial M.D. on 10/24/2016 at 7:29 Approved by: Shawn Marcial M.D. on 10/24/2016 at 7:29 Additional Diagnostics PROCEDURE: US SOFT TISSUE OF HEAD OR NECK SONOGRAM INDICATIONS: 71 year-old male with neutropenic fevers and neck swelling. Assess for abscess. TECHNIQUE: Real-time scanning was performed of the neck region of interest, with image documentation. COMPARISON: None. FINDINGS: In the region of interest, no fluid collections identified to suggest abscess. Normal-appearing sternocleidomastoid muscles are identified. No enlarged lymph nodes identified. IMPRESSION: No sonographic evidence for neck abscess. Dictated by: Shawn Marcial M.D. on 10/24/2016 at 8:02 Approved by: Shawn Marcial M.D. on 10/24/2016 at 8:03 Assessment & Plan 71 yo M w/ recent hospitalization 10/08-10/19 with newly diagnosed AML s/p induction ctx, pseudomonas bacteremia p/w fever with neck started 2days ago. acute, active Sepsis, SIRS+ fever/severe leukopenia/tachycardia,likely source:neck soft tissue infection with micro injury from shaving, possibly staph or strep, unlikely other infectious source-PICC seemed okay on exam, no oral thrush, CXR/ UA unremarkable. no GI/respiratory sx. no signs of UNIT NURSE infection. -clinically stable with stable hemodynamics, afebrile -Infectious disease has been consulted - appreciate ID input regarding abx of choice -Continue vancomycin, meropenem 2g q8h, ppx dose acyclovir to 200 tid and antifungals, stop acyclovir 10/27 given negative HSV serology, possibly stop vancomycin, defer to ID. -Blood culture negative 5 days - MRSA negative awaits -Cryptococcus antigen negative -Galactomannan Ag, and fungal antibodies culture pending -serial neck exam to monitor response -tylenol for fever -continue fentanyl prn given multiple opioid allergies -trends fever curve, procalcitonin. -s/p IVF NS 100cc/hr stopped 10/28 given possible fluid overload, -monitor serial scrotal exam, will consider input if it worsens but currently seems to be improving -Bactroban cream twice a day to cellulitic lesions on the neck bilaterally Hypertension - Blood pressure 129/67 -Continue hydralazine to 30 mg PO 3 times a day, 40 mg at bedtime -Continue diltiazem 180 mg daily -We will continue to monitor Volume overload (resolved) -Patient still has +1 pitting edema genital swelling has resolved -Continue Lasix 40 mg daily by mouth daily -We will continue to follow and manage improving daily Inguinal rash most likely fungal (resolved) -Continue nystatin powder Chronic hyponatremia-possibly secondary to hydrochlorothiazide, POA, currently not on HCTZ and mildly worsened, likely also component of recent chem ( resolving) - Sodium 125 on admission -Today's sodium is 133 yesterday it was stable at 135 -We will do a one-time bolus of 500 normal saline IV today 11/06/2016 -Continue to monitor Chronic anemia, POA -h/h mildly dropped from 2days ago <1g/dl, -Currently stable H&H is 8.8/25.5 -We will transfuse as needed if hemoglobin drops below 7 Thrombocytopenia, POA - Platelets are currently 13 a drop from 24 yesterday we will repeat white blood count today -No overt signs of bleeding, s/p 1unit 10/24, 10/25, transfuse plt as needed per oncology -We will contact oncology today and possibly transfuse the patient platelets based on the repeat results AML with severe neutropenia, dxed in 10/12/2016, CBC on 10/29 showed concerning 20 % blast, start reinduction chemo 10/30 for 7days. -White blood cell count on admission was 0.4 currently 0.2 Newly found bilateral epididymitis on US testicle, on 10/28, unclear clinical significance of this, possible leukemic infiltration, stable, unlikely new source of infection and patient also covered well with abx. Disposition: Patient is responding to treatment well. Patient did have low platelets today we are repeating this platelet count. If the platelets are below 15 we will contact oncology for possible transfusion of platelets. At this time the patient's blood pressure seems to be well controlled we will continue with the addition of hydralazine 30 mg 3 times a day and 40 mg daily at bedtime. The patient's volume status seems to be allergic control we will continue to give the patient 40 mg of Lasix daily and discontinue this medication once the patient is stable. diet:regular as tolerate dvt ppx:SCD Full Code VTE Mechanical Devices: Intermittant Pneumatic CD Time spent Greater than 35 minutes Shi Luna DO Nov 07, 2016 12:46
[2016-11-07] MEDS: SODIUM CHLORIDE 0.9% IV SCH (15:11)
[2016-11-07] MEDS: SODIUM BICARB IV SCH (15:11)
[2016-11-07] MEDS ORDERED: 0.9% Sodium Chloride 250 ML ONE (20:53)
[2016-11-07] MEDS: LORazepam 1 mg Tablet PO PRN (20:57)
[2016-11-08] VITALS (14 sets, daily range): BP systolic 117–138; BP diastolic 54–74; PULSE 59–78; RESP 15–20; O2SAT 99–100
--- NOTE | 2016-11-08 05:34 | PCM.PNMED ---
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 His neutrophil count and white cell count as well as platelet count continues to be a concern. He is on meropenem and posconazole for prophylaxis. He has a PICC line, has elio some neck pain at the time of admission. Today he tells me that he cut his neck while shaving at home after getting discharged last time from the hospital and ended up having an infection. Currently this has healed up, he is feeling better after receiving 2 units of RBC,, 2 units of irradiated platelets today. He is being seen by ID and understands that he is on prophylactic antibiotics and antifungal treatment. He denies constipation, fevers, chills, nausea vomiting. Exam Vital Signs Vital Sign - Last Date Time Temp Pulse Resp B/P Pulse Ox O2 Delivery O2 Flow Rate FiO2 11/08/16 05:02 37.1 78 16 126/64 99 Room Air Intake and Output 11/07/16 11/07/16 11/08/16 Cumulative From/Thru 15:00 23:00 07:00 10/24/16 06:05 - 11/08/16 03:13 Intake Total 600 ml 2687 ml 44196 ml Output Total 3775 ml 1500 ml 09508 ml Balance -3175 ml 1187 ml 1369 ml Intake Oral 600 ml 1720 ml 09596 ml IV Total 967 ml 91974 ml Packed Cells 900 ml Platelets 1259 ml Output Urine Total 3775 ml 1500 ml 82363 ml # Voids 7 13 # Bowel Movements 0 6 Exam Eyes: [place] conjunctivae. No ptosis, PERRL Neck: No masses, trachea midline, no thyromegaly. Scarring is noted from his shaving injury bilaterally Lungs: CTA with normal respiratory effort CV: RRR, no murmurs/rubs/gallops, normal PMI GI: Soft, non-tender with no hepatosplenomegaly MSK: no digital cyanosis Skin: Warm and dry. He has isolated rash on the dorsum of his upper extremities Psych: A&O X3, with approprate affect IVs and Medications Medications Reviewed: Medications were reviewed in detail Lab and Diagnostics Laboratory Tests Test 11/08/16 05:20 11/08/16 15:00 White Blood Count 0.1th/mm3 (3.8-10.1) Red Blood Count 2.67mil/mm3 (4.40-5.80) Hemoglobin 7.7g/dL (13.8-17.2) Hematocrit 23.1% (41.0-50.0) Mean Corpuscular Volume 86.5fL (81-100) Mean Corpuscular Hemoglobin 28.8pg (27.0-35.0) Mean Corpuscular Hemoglobin Concent 33.3% (32.0-37.0) Red Cell Distribution Width 12.7% (12.3-15.4) Platelet Count 7bil/L (150-400) Neutrophils (%) (Auto) % (40-74) Lymphocytes (%) (Auto) % (14-46) Monocytes (%) (Auto) % (4-12) Eosinophils (%) (Auto) % (0-5) Basophils (%) (Auto) % (0-3) Sodium Level 133mEq/L (134-144) Potassium Level 3.7mEq/L (3.5-5.2) Chloride Level 100mEq/L (97-108) Carbon Dioxide Level 24mmol/L (18-29) Blood Urea Nitrogen 19mg/dL (8-27) Creatinine 0.42mg/dL (0.76-1.27) Estimat Glomerular Filtration Rate 212mL/min (>59) Glucose Level 91mg/dL (60-99) Calcium Level 7.7mg/dL (8.5-10.1) Total Bilirubin 0.8mg/dL (0.0-1.2) Aspartate Amino Transf (AST/SGOT) 12U/L (0-50) Alanine Aminotransferase (ALT/SGPT) 31U/L (0-44) Alkaline Phosphatase 82U/L (25-160) Total Protein 4.5g/dL (6.4-8.4) Albumin 3.0g/dL (3.4-5.0) Microbiology 10/24/16 Blood Culture - Final, Complete NO GROWTH AFTER 5 DAYS 10/26/16 MRSA Screen - Final, Complete Result Diagram: 11/07/16 1201 11/07/16 1716 X-Rays, CTs and MRIs PROCEDURE: X-RAY CHEST ONE VIEW, PORTABLE ([id number]) INDICATIONS: 71 year-old male with neutropenic fevers. TECHNIQUE: One view of the chest was acquired. COMPARISON: None. FINDINGS: Surgical changes and devices: Right PICC is present, with tip in the upper superior vena cava. Lungs and pleura: No pleural effusions or pneumothorax. Lungs are clear. Mediastinum: Mediastinal contours appear normal. Heart size is normal. There is aortic atherosclerosis. Bones and chest wall: No suspicious bony lesions. Overlying soft tissues appear unremarkable. IMPRESSION: No acute cardiopulmonary disease. Dictated by: hSawn Marcial M.D. on 10/24/2016 at 7:29 Approved by: Shawn Marcial M.D. on 10/24/2016 at 7:29 Additional Diagnostics PROCEDURE: US SOFT TISSUE OF HEAD OR NECK SONOGRAM INDICATIONS: 71 year-old male with neutropenic fevers and neck swelling. Assess for abscess. TECHNIQUE: Real-time scanning was performed of the neck region of interest, with image documentation. COMPARISON: None. FINDINGS: In the region of interest, no fluid collections identified to suggest abscess. Normal-appearing sternocleidomastoid muscles are identified. No enlarged lymph nodes identified. IMPRESSION: No sonographic evidence for neck abscess. Dictated by: Shawn Marcial M.D. on 10/24/2016 at 8:02 Approved by: Shawn Marcial M.D. on 10/24/2016 at 8:03 Assessment & Plan 71 yo M w/ recent hospitalization 10/08-10/19 with newly diagnosed AML s/p induction ctx, pseudomonas bacteremia p/w fever with neck started 2days ago. acute, active Sepsis, SIRS+ fever/severe leukopenia/tachycardia,likely source:neck soft tissue infection with micro injury from shaving, possibly staph or strep, unlikely other infectious source-PICC seemed okay on exam, no oral thrush, CXR/ UA unremarkable. no GI/respiratory sx. no signs of CAR DRIVER infection. -clinically stable with stable hemodynamics, afebrile -Infectious disease has been consulted - appreciate ID input regarding abx of choice : They have recommended the patient to be on meropenem, posconazole -Blood culture negative to date - MRSA negative -Cryptococcus antigen negative -Galactomannan Ag, and fungal antibodies culture : negative - Plan to contact Dr. Hackett with any changes in his vitals , fever or infection status - -continue fentanyl prn given multiple opioid allergies -Patient was on IV fluids but stopped due to concern for volume overload -Consider checking epididymitis on a periodic basis -Bactroban cream twice a day to cellulitic lesions on the neck bilaterally Hypertension -Continue hydralazine to 30 mg PO 3 times a day, 40 mg at bedtime -Continue diltiazem 180 mg daily -We will continue to monitor Volume overload (resolved) -Patient has not complained about this today -Continue Lasix 40 mg daily by mouth daily -We will continue to follow and manage improving daily Inguinal rash most likely fungal (resolved) -Continue nystatin powder Chronic hyponatremia-possibly secondary to hydrochlorothiazide, POA, currently not on HCTZ and mildly worsened, likely also component of recent chem ( resolving) - Resolved Chronic anemia, POA -Patient received 2 units of PRBC on 11/08/16 Thrombocytopenia, POA - Platelets are 7 today, he was transfused 1 unit of platelets AML with severe neutropenia, dxed in 10/12/2016, CBC on 10/29 showed concerning 20 % blast, he has completed reinduction chemo that was done for 7 days, started on 10/30/16. -White blood cell count on admission was 0.4 currently 0.1 Newly found bilateral epididymitis on US testicle, on 10/28, unclear clinical significance of this, possible leukemic infiltration, stable, unlikely new source of infection and patient also covered well with abx. Disposition: Patient has received blood, platelets today. He will be monitored until his cell counts normalize in the hospital for oncology diet:regular as tolerate dvt ppx:SCD Full Code VTE Prophylaxis: Other (not needed platelets are 7) VTE Mechanical Devices: Intermittant Pneumatic CD Amanda Currie DO Nov 08, 2016 05:34
[2016-11-08] MEDS: Pantoprazole 20 mg ER24 Tablet PO SCH (06:09)
[2016-11-08] MEDS: Meropenem Inj 2,000 MG in 0.9% Sodium Chloride 100 ML IV SCH ×3 (06:10→23:00)
[2016-11-08 06:18] LABS: Mean Corpuscular Hemoglobin 28.8 pg (27.0-35.0); Mean Corpuscular Volume 86.5 fL (81-100)
[2016-11-08 06:37] LABS: Platelet Count 7 bil/L (150-400)
[2016-11-08] MEDS ORDERED: Hydrocortisone 50 mg/mL 2 mL Inj IV SCH ×2 (07:50→12:55)
--- NOTE | 2016-11-08 08:10 | PROG NOTE ---
[address] [address] PROGRESS NOTE PATIENT: JEFF AMEZCUA : 1945 MR#: [id number] ADMIT: 10/24/2016 JOB ID: [id number] DATE: 11/08/2016 SUBJECTIVE: The patient is a 71-year-old gentleman with acute myelogenous leukemia. He just completed re-induction chemotherapy for acute myelogenous leukemia on Sunday, November 06, 2016. He is in good spirits. No fevers. Edema has resolved. He remains on broad-spectrum antibiotics including meropenem and posaconazole. No shortness of breath. No bleeding or atypical bruising. OBJECTIVE: Vitals: T 37.1, P 78, R 16, BP 126/84, O2 saturation 99% on room air. HEENT: Alopecia. Conjunctivae pale. Mucous membranes moist, with no significant mucositis. Neck: Minimal erythema. Prior lesions appear to be healing. Nodes: No adenopathy in the neck or axilla. Chest: Clear throughout. Cardiac exam: Regular rate and rhythm with normal S1, S2. No murmurs appreciated. Abdomen: Soft, nontender. Normoactive bowel tones. Extremities: No edema. 2+ distal pulses. No calf tenderness. LABORATORIES: WBC 0.1, hemoglobin 7.7, hematocrit 23.1%, platelets 7000. Sodium 133, potassium 3.7, BUN 19, creatinine 0.42, glucose 91. AST 12, ALT 31, alkaline phosphatase 82. ASSESSMENT AND PLAN: Acute myelogenous leukemia: Initial induction chemotherapy with 7+3 began on October 11, 2016. He had evidence of residual leukemia, and received an additional seven days of re-induction chemotherapy with 7+3, from October 30, 2016, through November 06, 2016. He has associated pancytopenia. Type and cross. Transfuse 2 units irradiated packed red blood cells and 2 units irradiated platelets today after premedication with Tylenol 650 mg by mouth and hydrocortisone 50 mg IV. Continue broad-spectrum antibiotic coverage with meropenem and posaconazole. Discontinue sodium bicarbonate IV drip. Monitor electrolytes closely. Continue to adjust his antihypertensive regimen as required. Anticipate continued hospitalization until recovery of his neutropenia, which may still be two or more weeks from today. Once his white cells begin to recover, we will perform repeat bone marrow studies to confirm remission status. If he is not in remission, then there is very little hope for subsequent remission, and I would have him evaluated further at the [facility]. However, if he achieves remission, then he is an excellent candidate for future consolidation chemotherapy. Recent data shows the addition of androgens (norethandrolone) in the maintenance phase can significantly improve long-term survival. MTDD
[2016-11-08] MEDS: Nystatin 100,000 Unit/mL 5 mL Suspension PO SCH ×4 (09:33→23:06)
[2016-11-08] MEDS: Diltiazem CD 180 mg ER24 Capsule PO SCH (09:33)
[2016-11-08] MEDS: Mupirocin 2% 22 Gm Ointment TOPICAL SCH ×2 (09:33→23:07)
[2016-11-08] MEDS: POSACONAZOLE PO SCH ×3 (09:33→18:46)
[2016-11-08] MEDS ORDERED: 0.9% Sodium Chloride 250 ML ONE ×3 (12:47→19:48)
--- NOTE | 2016-11-08 19:03 | PROG NOTE ---
[address] [address] PROGRESS NOTE PATIENT: JEFF AMEZCUA : 1945 MR#: [id number] ADMIT: 10/24/2016 JOB ID: [id number] DATE: 11/08/2016 REASON FOR FOLLOWUP: Prolonged neutropenia with recent Pseudomonas sepsis. INTERVAL HISTORY: Over the weekend, the patient has felt reasonably well. He finished up his chemotherapy on November 06 and now we are in the waiting phase as we anticipate the recovery of his bone marrow in 10-14 days. The patient reports no fevers, chills, or sweats. No headaches. No shortness of breath, cough or chest pain. No nausea, vomiting, or diarrhea. He had three bowel movements two days ago, none yesterday and three more today. His appetite remains reasonably good. No significant swelling in the lower extremities. PHYSICAL EXAMINATION: Reveals an afebrile man. Temperature 36.8, pulse 75, respiratory rate 16, blood pressure 128/67. He is in no acute distress. Examination of the mental status reveals it to be clear. Oral cavity without thrush or pharyngitis. Neck: Inflammation anteriorly has completely resolved. Lungs quite clear. Cardiac tones with increasing murmur, now 3/6 systolic murmur heard across the precordium. Abdomen: Soft and nontender. No Gill catheter. No peripheral edema. No tenderness of the extremities. LABORATORIES: Include white blood count 100, platelet count has dropped to 7000 and he is receiving platelets at this time. Creatinine 0.42. LFTs normal. Albumin 3.0. Urinalysis without white cells. The most recent fungitell and galactomannan were done on the . These have come back negative. Fungitell 39, galactomannan 0.07. All blood cultures remain negative. No new imaging. IMPRESSION: The patient continues in this very long process of induction therapy for his leukemia as he failed the initial attempt and has now just two days ago completed his re-induction. RECOMMENDATIONS: 1. Will continue with meropenem and prophylactic posaconazole. 2. Should the patient develop any fevers, chills, pulmonary or additional GI symptoms, prompt re-evaluation with blood cultures, appropriate radiographs and changes in antibiotics will be indicated. Please notify me immediately if any of the above occur. 3. Note that I will continue to see the patient daily until his bone marrow recovers.
--- NOTE | 2016-11-08 21:52 | DRSVH ---
PROCEDURE: X-RAY CHEST ONE VIEW, PORTABLE ([id number]) INDICATIONS: picc placement TECHNIQUE: One view of the chest was acquired. COMPARISON: [facility], CR, XR CHEST 1VW (PORTABLE), 10/24/2016, 6:47. FINDINGS: Surgical changes and devices: There is a right PICC, the tip of which is near the confluence of the b rachiocephalic veins, slightly retracted from the prior study dated 10/24/16. Lungs and pleura: No pleural effusions or pneumothorax. Lungs are clear. Mediastinum: Mediastinal contours appear normal. Heart size is normal. Bones and chest wall: No suspicious bony lesions. Overlying soft tissues appear unremarkable. IMPRESSION: Slight retraction of right PICC. No acute cardiopulmonary findings. Dictated by: Val Banks M.D. on 11/08/2016 at 21:50 Approved by: Val Banks M.D. on 11/08/2016 at 21:50
[2016-11-08] MEDS: LORazepam 1 mg Tablet PO PRN (23:08)
[2016-11-09] VITALS (12 sets, daily range): BP systolic 115–147; BP diastolic 61–72; PULSE 61–93; RESP 16–18; O2SAT 97–100
[2016-11-09] MEDS ORDERED: 0.9% Sodium Chloride 250 ML ONE ×2 (02:36→14:41)
--- NOTE | 2016-11-09 05:52 | PCM.PNMED ---
Subjective Date of Service Nov 09, 2016 Subjective Patient is seen and examined. He denies sore lites fevers, chills, diarrhea and nausea vomiting, urinary symptoms. He is ambulating in the hallways with his . He states that he had an episode of some one accidentally puncturing PRBC bag, it did not cause him any pain as he was not Thooked up to it. He did receive a second unit and subsequently. He states that his epididymitis has resolved he is not currently having any symptoms Exam Vital Signs Vital Sign - Last Date Time Temp Pulse Resp B/P Pulse Ox O2 Delivery O2 Flow Rate FiO2 11/09/16 03:15 37.1 61 16 134/70 11/08/16 21:04 99 Room Air Intake and Output 11/08/16 11/08/16 11/09/16 Cumulative From/Thru 14:59 22:59 06:59 10/24/16 06:05 - 11/09/16 02:45 Intake Total 772 ml 2431 ml 40553 ml Output Total 1905 ml 1200 ml 17788 ml Balance -1133 ml 1231 ml 2484 ml Intake Oral 575 ml 2000 ml 35468 ml IV Total 127 ml 331 ml 07377 ml Packed Cells 900 ml Platelets 70 ml 100 ml 1429 ml Output Urine Total 1905 ml 1200 ml 62739 ml # Voids 13 # Bowel Movements 5 11 Exam General: Sitting in chair in no acute distress HEENT: Normocephalic atraumatic. Dried scabs can be seen on either side of his neck anteriorly Neck: Negative for JVD, trachea central Heart: Regular rate and rhythm no S3-S4 Lungs clear to auscultation bilaterally no crackles wheezes Abdomen flat, nondistended, normal bowel sounds Psych: Negative for anxiety Neuro: No focal deficits Skin: Right-sided PICC line site shows no sign of infection or erythema IVs and Medications Medications Reviewed: Medications were reviewed in detail Lab and Diagnostics Laboratory Tests Test 11/09/16 06:40 White Blood Count 0.2th/mm3 (3.8-10.1) Red Blood Count 3.18mil/mm3 (4.40-5.80) Hemoglobin 9.1g/dL (13.8-17.2) Hematocrit 27.0% (41.0-50.0) Mean Corpuscular Volume 84.9fL (81-100) Mean Corpuscular Hemoglobin 28.6pg (27.0-35.0) Mean Corpuscular Hemoglobin Concent 33.7% (32.0-37.0) Red Cell Distribution Width 13.0% (12.3-15.4) Platelet Count 34bil/L (150-400) Neutrophils (%) (Auto) % (40-74) Lymphocytes (%) (Auto) % (14-46) Monocytes (%) (Auto) % (4-12) Eosinophils (%) (Auto) % (0-5) Basophils (%) (Auto) % (0-3) Sodium Level 136mEq/L (134-144) Potassium Level 3.7mEq/L (3.5-5.2) Chloride Level 101mEq/L (97-108) Carbon Dioxide Level 24mmol/L (18-29) Blood Urea Nitrogen 13mg/dL (8-27) Creatinine 0.42mg/dL (0.76-1.27) Estimat Glomerular Filtration Rate 212mL/min (>59) Glucose Level 93mg/dL (60-99) Calcium Level 8.1mg/dL (8.5-10.1) Total Bilirubin 1.1mg/dL (0.0-1.2) Aspartate Amino Transf (AST/SGOT) 12U/L (0-50) Alanine Aminotransferase (ALT/SGPT) 26U/L (0-44) Alkaline Phosphatase 79U/L (25-160) Total Protein 4.7g/dL (6.4-8.4) Albumin 3.1g/dL (3.4-5.0) Microbiology 10/24/16 Blood Culture - Final, Complete NO GROWTH AFTER 5 DAYS 10/26/16 MRSA Screen - Final, Complete Result Diagram: 11/08/16 0520 11/08/16 0520 X-Rays, CTs and MRIs PROCEDURE: X-RAY CHEST ONE VIEW, PORTABLE ([id number]) INDICATIONS: 71 year-old male with neutropenic fevers. TECHNIQUE: One view of the chest was acquired. COMPARISON: None. FINDINGS: Surgical changes and devices: Right PICC is present, with tip in the upper superior vena cava. Lungs and pleura: No pleural effusions or pneumothorax. Lungs are clear. Mediastinum: Mediastinal contours appear normal. Heart size is normal. There is aortic atherosclerosis. Bones and chest wall: No suspicious bony lesions. Overlying soft tissues appear unremarkable. IMPRESSION: No acute cardiopulmonary disease. Dictated by: Shawn Marcial M.D. on 10/24/2016 at 7:29 Approved by: Shawn Marcial M.D. on 10/24/2016 at 7:29 Additional Diagnostics PROCEDURE: US SOFT TISSUE OF HEAD OR NECK SONOGRAM INDICATIONS: 71 year-old male with neutropenic fevers and neck swelling. Assess for abscess. TECHNIQUE: Real-time scanning was performed of the neck region of interest, with image documentation. COMPARISON: None. FINDINGS: In the region of interest, no fluid collections identified to suggest abscess. Normal-appearing sternocleidomastoid muscles are identified. No enlarged lymph nodes identified. IMPRESSION: No sonographic evidence for neck abscess. Dictated by: Shawn Marcial M.D. on 10/24/2016 at 8:02 Approved by: Shawn Marcial M.D. on 10/24/2016 at 8:03 Assessment & Plan 71 yo M w/ recent hospitalization 10/08-10/19 with newly diagnosed AML s/p induction ctx, pseudomonas bacteremia p/w fever with neck started 2days ago. acute, active Sepsis, SIRS+ fever/severe leukopenia/tachycardia,likely source:neck soft tissue infection with micro injury from shaving, possibly staph or strep, unlikely other infectious source-PICC seemed okay on exam, no oral thrush, CXR/ UA unremarkable. no GI/respiratory sx. no signs of RUBBISH COLLECTOR infection. -clinically stable with stable hemodynamics, afebrile -Infectious disease has been consulted - appreciate ID input regarding abx of choice : They have recommended the patient to be on meropenem, posconazolem for prophylaxis -Blood culture negative to date - MRSA negative -Cryptococcus antigen negative -Galactomannan Ag, and fungal antibodies negative so far. A new set is ordered today - Plan to contact Dr. Hackett with any changes in his vitals , fever or infection status -Patient's neck appears completely healed up -continue fentanyl prn given multiple opioid allergies -Patient was on IV fluids but stopped due to concern for volume overload -Consider checking epididymitis on a periodic basis Hypertension -Continue hydralazine to 30 mg PO 3 times a day, 40 mg at bedtime -Continue diltiazem 180 mg daily -Continue to monitor Volume overload (resolved) -Patient has not complained about this today -Continue Lasix 40 mg daily by mouth daily -We will continue to follow and manage improving daily Inguinal rash most likely fungal (resolved) -Continue nystatin powder Chronic hyponatremia-possibly secondary to hydrochlorothiazide, POA, currently not on HCTZ and mildly worsened, likely also component of recent chem - Resolved Chronic anemia, POA -Patient received 2 units of PRBC on 11/08/16 Thrombocytopenia, POA - he was transfused 1 unit of platelets -Counter improving, 34 today -- Continue to monitor with daily labs AML with severe neutropenia, dxed in 10/12/2016, CBC on 10/29 showed concerning 20 % blast, he has completed reinduction chemo that was done for 7 days, started on 10/30/16. -White blood cell count on admission was 0.4 currently 0. 2 PICC line finding: notified by infusion services that the patient's PICC line is out by 4 cm now at the brachiocephalic junction. Left a message for oncology. Newly found bilateral epididymitis on US testicle, on 10/28, unclear clinical significance of this, possible leukemic infiltration, stable, unlikely new source of infection and patient also covered well with abx. Disposition: He will be monitored until his cell counts normalize in the hospital for oncology diet:regular as tolerate dvt ppx:SCD Full Code VTE Prophylaxis: Other (not needed platelets are 7) VTE Mechanical Devices: Intermittant Pneumatic CD Resuscitation Status: CPR: Attempt Resuscitation Amanda Currie DO Nov 09, 2016 05:52
[2016-11-09] MEDS: Meropenem Inj 2,000 MG in 0.9% Sodium Chloride 100 ML IV SCH ×3 (06:33→22:17)
[2016-11-09 07:02] LABS: Mean Corpuscular Hemoglobin 28.6 pg (27.0-35.0); Mean Corpuscular Volume 84.9 fL (81-100)
[2016-11-09 07:03] LABS: Platelet Count 34 bil/L (150-400)
[2016-11-09] MEDS: Diltiazem CD 180 mg ER24 Capsule PO SCH (08:22)
[2016-11-09] MEDS: Pantoprazole 20 mg ER24 Tablet PO SCH (08:22)
[2016-11-09] MEDS: POSACONAZOLE PO SCH ×3 (09:05→18:23)
[2016-11-09] MEDS: Nystatin 100,000 Unit/mL 5 mL Suspension PO SCH ×4 (09:05→22:17)
--- NOTE | 2016-11-09 09:05 | PROG NOTE ---
[address] [address] PROGRESS NOTE PATIENT: JEFF AMEZCUA : 1945 MR#: [id number] ADMIT: 10/24/2016 JOB ID: [id number] DATE: 11/09/2016 SUBJECTIVE: The patient is a 71-year-old gentleman with acute myelogenous leukemia. He did not achieve complete remission with initial induction chemotherapy in September, and just completed re-induction chemotherapy from October 30, 2016 through November 06, 2016. He has been transfusion dependent due to recent treatment. He received 2 units of packed red blood cells and 2 units of platelets yesterday. Apparently one of the red blood cell units was spiked, and bled onto the floor and sheets. This caused the patient significant distress. The unit was taken down and replaced with a separate unit. He has had no fevers overnight. No shortness of breath or chest pain. No rashes. He remains on broad-spectrum antibiotics with meropenem and posaconazole, monitored closely by the infectious disease team. OBJECTIVE: Vitals: T 36.8, P 61, R 18, BP 132/68. HEENT: Conjunctivae slightly pale. Mucous membranes moist. No oral lesions. Nodes: No adenopathy in the neck or axilla. Chest: Clear. No wheezes. Cardiac examination: Regular rate and rhythm with normal S1, S2. Abdomen: Soft, nontender with normoactive bowel tones. Extremities: No significant edema, 2+ distal pulses. No calf tenderness. No petechiae or ecchymoses. LABORATORIES: WBC 0.2, hemoglobin 9.1, hematocrit 27%, platelets 34,000. Sodium 136, potassium 3.7, BUN 13, creatinine 0.42, glucose 93, AST 12, ALT 26, alkaline phosphatase 79. ASSESSMENT AND PLAN: Acute myelogenous leukemia: Clinically stable. Re-induction chemotherapy was completed on November 06, 2016. He has expected pancytopenia. He received 2 units of packed red blood cells and 2 units of platelets yesterday. He had a reasonable clinical response. Based on laboratory studies this morning, no indication for further transfusion support at this time. Continue to monitor daily. Continue broad-spectrum antibiotics. Once his white cells begin to recover, we will perform bone marrow studies to confirm remission status.
[2016-11-09] MEDS: Mupirocin 2% 22 Gm Ointment TOPICAL SCH ×2 (10:09→20:41)
--- NOTE | 2016-11-09 13:07 | PROG NOTE ---
[address] [address] PROGRESS NOTE PATIENT: JEFF AMEZCUA : 1945 MR#: [id number] ADMIT: 10/24/2016 JOB ID: [id number] DATE: 11/09/2016 INFECTIOUS DISEASE FOLLOWUP NOTE: REASON FOR FOLLOWUP: Persistent neutropenia. INTERVAL HISTORY: The patient reports no change overnight. He continues to be free of fevers, chills, or sweats. He has no headache, no sore throat. No cough, no shortness of breath, and no pleuritic chest pain. No associated nausea, vomiting, diarrhea. No dysuria. No swelling of the extremities. No problems with his PICC line. PHYSICAL EXAMINATION: Reveals an afebrile gentleman, temperature 36.7, pulse 73, respiratory rate 16, blood pressure 131/72. He is saturating well on room air. Mental status completely normal. Oropharynx without any thrush or pharyngitis. Lungs are clear posteriorly. Cardiac tones without change. Abdomen benign. Right upper extremity PICC line in good position. LABORATORIES: Include a white count still 200. No diff has been obtained. Hematocrit 27, platelet count 34,000. Creatinine 0.42. LFTs are normal. Galactomannan and Fungitell are once again pending, but we have three other values over the course of the month that have all been negative. A chest x-ray was done yesterday, and I am not exactly sure why, but it does show that the PICC came out a little bit, so I suspect this x-ray was ordered because the PICC may have fallen out slightly. There is no infiltrate seen. IMPRESSION: This patient continues to be relatively stable despite profound and ongoing neutropenia. He remains at extremely high risk while we wait for recovery of his white count, but at this point I see no indication to change antibiotics or order additional diagnostic studies. RECOMMENDATIONS: 1. Will continue with meropenem and prophylactic posaconazole. 2. I will continue to follow this patient closely until his bone marrow recovers.
[2016-11-09] MEDS: LORazepam 1 mg Tablet PO PRN (22:17)
[2016-11-10] VITALS (8 sets, daily range): BP systolic 115–147; BP diastolic 67–74; PULSE 71–86; RESP 16–18; O2SAT 94–99
--- NOTE | 2016-11-10 05:30 | PCM.PNMED ---
Subjective Date of Service Nov 10, 2016 Subjective Patient is seen and examined. He appears to be in good spirits. His and patient are talking at length about the progress is the making. feels that he is still not eating very well. Patient has lost 10 pounds apparently in the last several days days, dietary consult is also ordered today. Appears his oncologist is aware of his PICC line issue. He reassured patient that he can continue to receive his blood and IV antibiotics. He shows a small scrape geovanni over his left foot and states that he is using me by [facility] per Dr. winn 's recommendation. He denies any new pain with his previous epididymitis, denies fevers, chills, diarrhea. No other concerns today Exam Vital Signs Vital Sign - Last Date Time Temp Pulse Resp B/P Pulse Ox O2 Delivery O2 Flow Rate FiO2 11/10/16 00:20 36.7 78 16 147/74 98 Room Air Intake and Output 11/09/16 11/09/16 11/10/16 Cumulative From/Thru 15:00 23:00 07:00 10/24/16 06:05 - 11/10/16 02:16 Intake Total 444 ml 1419 ml 01507 ml Output Total 1625 ml 99376 ml Balance 444 ml -206 ml 2071 ml Intake Oral 1297 ml 56423 ml IV Total 444 ml 122 ml 65263 ml Packed Cells 1200 ml Platelets 1429 ml Output Urine Total 1625 ml 58431 ml # Voids 13 # Bowel Movements 0 11 Exam Gen.: No acute distress sitting in chair covered and bedsheets HEENT: Normocephalic/atraumatic Skin: His PICC line site, neck lesions, foot abrasions all look clean and noninfected Heart: Regular rate and rhythm no S3-S4 sounds Lungs clear to auscultation bilaterally no crackles or wheezes appreciated Abdomen nontender, nondistended, normal bowel sounds Psych: Affect neutral mood pleasant Neuro no focal deficits Lab and Diagnostics Laboratory Tests Test 11/10/16 05:25 White Blood Count 0.2th/mm3 (3.8-10.1) Red Blood Count 3.16mil/mm3 (4.40-5.80) Hemoglobin 9.2g/dL (13.8-17.2) Hematocrit 26.6% (41.0-50.0) Mean Corpuscular Volume 84.2fL (81-100) Mean Corpuscular Hemoglobin 29.1pg (27.0-35.0) Mean Corpuscular Hemoglobin Concent 34.6% (32.0-37.0) Red Cell Distribution Width 13.2% (12.3-15.4) Platelet Count 26bil/L (150-400) Neutrophils (%) (Auto) % (40-74) Lymphocytes (%) (Auto) % (14-46) Monocytes (%) (Auto) % (4-12) Eosinophils (%) (Auto) % (0-5) Basophils (%) (Auto) % (0-3) Sodium Level 131mEq/L (134-144) Potassium Level 3.9mEq/L (3.5-5.2) Chloride Level 98mEq/L (97-108) Carbon Dioxide Level 23mmol/L (18-29) Blood Urea Nitrogen 16mg/dL (8-27) Creatinine 0.52mg/dL (0.76-1.27) Estimat Glomerular Filtration Rate 166mL/min (>59) Glucose Level 93mg/dL (60-99) Calcium Level 8.1mg/dL (8.5-10.1) Total Bilirubin 0.9mg/dL (0.0-1.2) Aspartate Amino Transf (AST/SGOT) 12U/L (0-50) Alanine Aminotransferase (ALT/SGPT) 22U/L (0-44) Alkaline Phosphatase 85U/L (25-160) Total Protein 4.9g/dL (6.4-8.4) Albumin 3.1g/dL (3.4-5.0) Microbiology 10/24/16 Blood Culture - Final, Complete NO GROWTH AFTER 5 DAYS 10/26/16 MRSA Screen - Final, Complete Result Diagram: 11/09/16 0640 11/09/16 0640 X-Rays, CTs and MRIs PROCEDURE: X-RAY CHEST ONE VIEW, PORTABLE ([id number]) INDICATIONS: 71 year-old male with neutropenic fevers. TECHNIQUE: One view of the chest was acquired. COMPARISON: None. FINDINGS: Surgical changes and devices: Right PICC is present, with tip in the upper superior vena cava. Lungs and pleura: No pleural effusions or pneumothorax. Lungs are clear. Mediastinum: Mediastinal contours appear normal. Heart size is normal. There is aortic atherosclerosis. Bones and chest wall: No suspicious bony lesions. Overlying soft tissues appear unremarkable. IMPRESSION: No acute cardiopulmonary disease. Dictated by: Shawn Marcial M.D. on 10/24/2016 at 7:29 Approved by: Shawn Marcial M.D. on 10/24/2016 at 7:29 Additional Diagnostics PROCEDURE: US SOFT TISSUE OF HEAD OR NECK SONOGRAM INDICATIONS: 71 year-old male with neutropenic fevers and neck swelling. Assess for abscess. TECHNIQUE: Real-time scanning was performed of the neck region of interest, with image documentation. COMPARISON: None. FINDINGS: In the region of interest, no fluid collections identified to suggest abscess. Normal-appearing sternocleidomastoid muscles are identified. No enlarged lymph nodes identified. IMPRESSION: No sonographic evidence for neck abscess. Dictated by: Shawn Marcial M.D. on 10/24/2016 at 8:02 Approved by: Shawn Marcial M.D. on 10/24/2016 at 8:03 Assessment & Plan 71 yo M w/ recent hospitalization 10/08-10/19 with newly diagnosed AML s/p induction ctx, pseudomonas bacteremia p/w fever with neck started 2days ago. acute, active Sepsis, SIRS+ fever/severe leukopenia/tachycardia,likely source:neck soft tissue infection with micro injury from shaving, possibly staph or strep, unlikely other infectious source-PICC seemed okay on exam, no oral thrush, CXR/ UA unremarkable. no GI/respiratory sx. 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 -clinically stable with stable hemodynamics, afebrile -Infectious disease has been consulted - appreciate ID input regarding abx of choice : They have recommended the patient to be on meropenem, posconazolem for prophylaxis -Blood culture negative to date - MRSA negative -Cryptococcus antigen negative -Galactomannan Ag, and fungal antibodies negative so far. Yesterday's lab results showed normal Galactomannan Ag, fungal antibodies are pending - Plan to contact Dr. Hackett with any changes in his vitals , fever or infection status -Patient's neck appears completely healed up -continue fentanyl prn given multiple opioid allergies -Patient was on IV fluids but stopped due to concern for volume overload -Consider checking epididymitis on a periodic basis: Have discussed this with patient and told him we will be checking it tomorrow and he is agreeable to the plan Hypertension -Patient's hydralazine was reduced to 10 mg 3 times a day and 10 mg daily at bedtime due to drop in blood pressure this a.m. -Continue diltiazem 180 mg daily -Continue to monitor Volume overload (resolved) -Continue Lasix 40 mg daily by mouth daily -We will continue to follow and manage improving daily Inguinal rash most likely fungal (resolved) -Continue nystatin powder Chronic hyponatremia-possibly secondary to hydrochlorothiazide, POA, currently not on HCTZ and mildly worsened, likely also component of recent chem - Resolved Chronic anemia, POA -Patient received 2 units of PRBC on 11/08/16 Thrombocytopenia, POA - he was transfused 1 unit of platelets -- Continue to monitor with daily labs AML with severe neutropenia, dxed in 10/12/2016, CBC on 10/29 showed concerning 20 % blast, he has completed reinduction chemo that was done for 7 days, started on 10/30/16. -White blood cell count on admission was 0.4 currently 0. 2 PICC line finding: notified by infusion services that the patient's PICC line is out by 4 cm now at the brachiocephalic junction. Left a message for oncology. The [facility] oncologist is aware of the conversation he had with the patient. Newly found bilateral epididymitis on US testicle, on 10/28, unclear clinical significance of this, possible leukemic infiltration, stable, unlikely new source of infection and patient also covered well with abx. -- Plan to recheck tomorrow Disposition: He will be monitored until his cell counts normalize in the hospital for oncology diet:regular as tolerate dvt ppx:SCD Full Code VTE Prophylaxis: Other (not needed platelets are 7) VTE Mechanical Devices: Intermittant Pneumatic CD Resuscitation Status: CPR: Attempt Resuscitation Amanda Currie DO Nov 10, 2016 05:30
[2016-11-10 05:40] LABS: Mean Corpuscular Hemoglobin 29.1 pg (27.0-35.0); Mean Corpuscular Volume 84.2 fL (81-100)
[2016-11-10 05:45] LABS: Platelet Count 26 bil/L (150-400)
[2016-11-10] MEDS: Meropenem Inj 2,000 MG in 0.9% Sodium Chloride 100 ML IV SCH ×2 (06:23→15:18)
[2016-11-10] MEDS: POSACONAZOLE PO SCH ×3 (09:03→17:40)
[2016-11-10] MEDS: Diltiazem CD 180 mg ER24 Capsule PO SCH (09:03)
[2016-11-10] MEDS: Mupirocin 2% 22 Gm Ointment TOPICAL SCH ×2 (09:03→21:11)
[2016-11-10] MEDS: Pantoprazole 20 mg ER24 Tablet PO SCH (09:03)
[2016-11-10] MEDS: Nystatin 100,000 Unit/mL 5 mL Suspension PO SCH ×4 (09:03→21:16)
--- NOTE | 2016-11-10 11:51 | PROG NOTE ---
[address] [address] PROGRESS NOTE PATIENT: JEFF AMEZCUA : 1945 MR#: [id number] ADMIT: 10/24/2016 JOB ID: [id number] DATE: 11/10/2016 INFECTIOUS DISEASE FOLLOW UP NOTE: REASON FOR FOLLOW UP: Neutropenia with recent pseudomonal sepsis as well as a soft tissue infection of the neck. INTERVAL HISTORY: Overnight, the patient has remained relatively stable. He denies fevers, chills or sweats. No sore throat or cough. He has no nausea or vomiting. He continues to pass small amounts of mucus per rectum when he urinates, and this is an irritating problem which has been going on for a few days, but he is not having any gross diarrhea. No dysuria is noted. He has noted the appearance of small blister-like agents over his dorsal feet bilaterally at the site where he had some ill fitting sandals and he has now switched to sandals which fit better. PHYSICAL EXAMINATION: Reveals an afebrile gentleman, temperature 36.7, pulse 78, respiratory rate 16, blood pressure 134/78, saturating well on room air. Examination of the head without trauma. Eyes without conjunctivitis. Oral cavity without thrush or hairy leukoplakia. The anterior neck lesions have healed up quite well. His lungs are clear. His cardiac tones with 2/6 murmur as has been heard previously. His abdomen is basically benign. The dorsal feet each have very small abrasions just a couple mm across with the left dorsal foot being the worst of the two. There is no evidence that these are infected at this point. LABORATORIES: Include a white count of 200, platelet count 26,000, creatinine 0.52. Galactomannan and Fungitell repeat assays are pending. No new imaging is available. IMPRESSION: This patient seems to be doing well in his very long period of neutropenia as he has just completed his second induction for AML after the first induction therapy failed. At this point, I see no evidence for infection or maintaining him on meropenem as broad-spectrum coverage because his neutrophil count is 0 and he recently had both Pseudomonas sepsis and soft tissue infection of his neck. He is also on posaconazole for prophylaxis. RECOMMENDATIONS: 1. Continue posaconazole and meropenem. 2. Will continue to closely follow with you.
--- NOTE | 2016-11-10 13:00 | CCA NOTE ---
[facility] [address] [address] MEDICAL ONCOLOGY OFFICE NOTE PATIENT: JEFF AMEZCUA : 1945 MR#: [id number] DATE: 10/24/2016 JOB ID: [id number] DATE: 11/10/2016 SUBJECTIVE: The patient is a 71-year-old gentleman with acute myelogenous leukemia. He just completed a course of re-induction chemotherapy with SIMÓN-C and idarubicin from October 30, 2016 through November 06, 2016. He has been transfusion-dependent. He feels pretty good today. No fevers overnight. No transfusions yesterday. No rashes. He remains on broad-spectrum antibiotics with meropenem and posaconazole. OBJECTIVE: Vitals: T 36.7, P 78, R 16, BP 134/72. HEENT: Conjunctivae slightly pale. Mucous membranes moist. No oral lesions. Nodes: No adenopathy in the neck, axilla or groin. Chest: Clear. Cardiac examination: Regular rate and rhythm with normal S1, S2. Abdomen: Soft, nontender, with normoactive bowel tones. No splenomegaly or masses. Extremities: No edema. 2+ distal pulses. No calf tenderness. No petechiae or ecchymoses. LABORATORIES: WBC 0.2, hemoglobin 9.2, hematocrit 26.6%, platelets 26,000. Sodium 131, potassium 3.9, BUN 16, creatinine 0.52, glucose 93, AST 12, ALT 22, alkaline phosphatase 85. 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 He is pancytopenic, but without definitive indication for transfusion support today. All blood products should be irradiated. Avoid G-CSF, as this could potentially stimulate a leukemic clone. On recovery of his white cells, anticipate repeat bone marrow studies to confirm remission status. In the meantime, continue to monitor hematologic parameters daily. Continue broad-spectrum antibiotics, which are being managed by the Infectious Disease team.
[2016-11-10] MEDS: LORazepam 1 mg Tablet PO PRN (21:10)
[2016-11-11] VITALS (10 sets, daily range): BP systolic 109–146; BP diastolic 62–78; PULSE 72–77; RESP 14–18; O2SAT 98–99
[2016-11-11] MEDS: Meropenem Inj 2,000 MG in 0.9% Sodium Chloride 100 ML IV SCH ×3 (00:03→16:24)
--- NOTE | 2016-11-11 05:19 | PCM.PNMED ---
Subjective Date of Service Nov 11, 2016 Subjective Patient is seen and examined. He states he has not seen the dietary services as yet. His platelets are below 15 today. White count is 0.1. States he is ambulating well in the hallways with his . He continues to feel cold when he sits in his chair. He does not believe his rashes on his feet have gotten worse. Denies fevers, chills, nausea, white vomiting, diarrhea no other concerns expressed Exam Vital Signs Vital Sign - Last Date Time Temp Pulse Resp B/P Pulse Ox O2 Delivery O2 Flow Rate FiO2 11/11/16 04:53 36.7 77 16 134/70 99 Room Air Intake and Output 11/10/16 11/10/16 11/11/16 Cumulative From/Thru 15:00 23:00 07:00 10/24/16 06:05 - 11/11/16 04:52 Intake Total 945 ml 1840 ml 02176 ml Output Total 900 ml 2050 ml 33416 ml Balance 45 ml -210 ml 1556 ml Intake Oral 720 ml 1840 ml 96430 ml IV Total 225 ml 47945 ml Packed Cells 1200 ml Platelets 1429 ml Output Urine Total 900 ml 2050 ml 93191 ml # Voids 13 # Bowel Movements 0 0 11 Exam Gen.: No acute distress sitting in chair HEENT: normocephalic, atraumatic Heart: Regular rate and rhythm no S3-S4 sounds lungs: Clear to to auscultation Skin: Negative for infection or erythema over the neck, his PICC line site looks clean and dry, small areas of erythema over his feet if he is stable nonpruritic Abdomen : Nontender nondistended normal bowel sounds are present exam: Nontender to palpation negative for scrotal swellingor epididymal swelling. Exam was performed with nurse as escort. was present as well Neuro: No focal deficits Psych: Negative for anxiety IVs and Medications IV Fluids None Medications Reviewed: Medications were reviewed in detail Lab and Diagnostics Laboratory Tests Test 11/11/16 08:15 White Blood Count 0.1th/mm3 (3.8-10.1) Red Blood Count 3.14mil/mm3 (4.40-5.80) Hemoglobin 9.0g/dL (13.8-17.2) Hematocrit 26.5% (41.0-50.0) Mean Corpuscular Volume 84.4fL (81-100) Mean Corpuscular Hemoglobin 28.7pg (27.0-35.0) Mean Corpuscular Hemoglobin Concent 34.0% (32.0-37.0) Red Cell Distribution Width 13.1% (12.3-15.4) Platelet Count 13bil/L (150-400) Neutrophils (%) (Auto) % (40-74) Lymphocytes (%) (Auto) % (14-46) Monocytes (%) (Auto) % (4-12) Eosinophils (%) (Auto) % (0-5) Basophils (%) (Auto) % (0-3) Hematology Comments Sodium Level 130mEq/L (134-144) Potassium Level 4.2mEq/L (3.5-5.2) Chloride Level 96mEq/L (97-108) Carbon Dioxide Level 22mmol/L (18-29) Blood Urea Nitrogen 15mg/dL (8-27) Creatinine 0.49mg/dL (0.76-1.27) Estimat Glomerular Filtration Rate 177mL/min (>59) Glucose Level 101mg/dL (60-99) Calcium Level 8.2mg/dL (8.5-10.1) Total Bilirubin 0.9mg/dL (0.0-1.2) Aspartate Amino Transf (AST/SGOT) 13U/L (0-50) Alanine Aminotransferase (ALT/SGPT) 24U/L (0-44) Alkaline Phosphatase 95U/L (25-160) Total Protein 5.2g/dL (6.4-8.4) Albumin 3.3g/dL (3.4-5.0) Microbiology 10/24/16 Blood Culture - Final, Complete NO GROWTH AFTER 5 DAYS 10/26/16 MRSA Screen - Final, Complete Result Diagram: 11/10/1652411/10/16524 X-Rays, CTs and MRIs PROCEDURE: X-RAY CHEST ONE VIEW, PORTABLE ([id number]) INDICATIONS: 71 year-old male with neutropenic fevers. TECHNIQUE: One view of the chest was acquired. COMPARISON: None. FINDINGS: Surgical changes and devices: Right PICC is present, with tip in the upper superior vena cava. Lungs and pleura: No pleural effusions or pneumothorax. Lungs are clear. Mediastinum: Mediastinal contours appear normal. Heart size is normal. There is aortic atherosclerosis. Bones and chest wall: No suspicious bony lesions. Overlying soft tissues appear unremarkable. IMPRESSION: No acute cardiopulmonary disease. Dictated by: Shawn Marcial M.D. on 10/24/2016 at 7:29 Approved by: Shawn Marcial M.D. on 10/24/2016 at 7:29 Additional Diagnostics PROCEDURE: US SOFT TISSUE OF HEAD OR NECK SONOGRAM INDICATIONS: 71 year-old male with neutropenic fevers and neck swelling. Assess for abscess. TECHNIQUE: Real-time scanning was performed of the neck region of interest, with image documentation. COMPARISON: None. FINDINGS: In the region of interest, no fluid collections identified to suggest abscess. Normal-appearing sternocleidomastoid muscles are identified. No enlarged lymph nodes identified. IMPRESSION: No sonographic evidence for neck abscess. Dictated by: Shawn Marcial M.D. on 10/24/2016 at 8:02 Approved by: Shawn Marcial M.D. on 10/24/2016 at 8:03 Assessment & Plan 71 yo M w/ recent hospitalization 10/08-10/19 with newly diagnosed AML s/p induction ctx, pseudomonas bacteremia p/w fever with neck started 2days ago. acute, active Sepsis, SIRS+ fever/severe leukopenia/tachycardia,likely source:neck soft tissue infection with micro injury from shaving, possibly staph or strep, unlikely other infectious source-PICC seemed okay on exam, no oral thrush, CXR/ UA unremarkable. no GI/respiratory sx. no signs of [employer] WORK[employer] infection. -clinically stable with stable hemodynamics, afebrile -Infectious disease has been consulted - appreciate ID input regarding abx of choice : They have recommended the patient to be on meropenem, posconazolem for prophylaxis -Blood culture negative to date - MRSA negative -Cryptococcus antigen negative -Galactomannan Ag, and fungal antibodies negative so far. Last set of lab results showed normal Galactomannan Ag, fungal antibodies are negative - Plan to contact Dr. Hackett with any changes in his vitals , fever or infection status -Patient's neck appears completely healed up -continue fentanyl prn given multiple opioid allergies -Patient was on IV fluids but stopped due to concern for volume overload -Consider checking epididymitis on a periodic basis: Recheck this today and he did not appear to have any erythema, swelling, tenderness Hypertension -Patient's hydralazine was reduced to 10 mg 3 times a day and 10 mg daily at bedtime due to drop in blood pressure this a.m. -Continue diltiazem 180 mg daily -Continue to monitor Volume overload (resolved) -Continue Lasix 40 mg daily by mouth daily -We will continue to follow and manage improving daily Inguinal rash most likely fungal (resolved) -Continue nystatin powder Chronic hyponatremia-possibly secondary to hydrochlorothiazide, POA, currently not on HCTZ and mildly worsened, likely also component of recent chem - Resolved Chronic anemia, POA -Patient received 2 units of PRBC on 11/08/16 Thrombocytopenia, POA - he was transfused 2 unit of platelets today -- Continue to monitor with daily labs AML with severe neutropenia, dxed in 10/12/2016, CBC on 10/29 showed concerning 20 % blast, he has completed reinduction chemo that was done for 7 days, started on 10/30/16. -White blood cell count on admission was 0.4 currently 0. 1 PICC line finding: notified by infusion services that the patient's PICC line is out by 4 cm now at the brachiocephalic junction. Left a message for oncology. The [facility] oncologist is aware of the conversation he had with the patient. Newly found bilateral epididymitis on US testicle, on 10/28, unclear clinical significance of this, possible leukemic infiltration, stable, unlikely new source of infection and patient also covered well with abx. -- Negative for acute infectious findings Disposition: He will be monitored until his cell counts normalize in the hospital for oncology diet:regular as tolerate dvt ppx:SCD Full Code Pain Evaluation: Adequate Pain Control VTE Prophylaxis: Other (not needed platelets are 7) VTE Mechanical Devices: Intermittant Pneumatic CD Resuscitation Status: CPR: Attempt Resuscitation Amanda Currie DO Nov 11, 2016 05:19
[2016-11-11] MEDS: POSACONAZOLE PO SCH ×3 (08:32→18:13)
[2016-11-11] MEDS: Pantoprazole 20 mg ER24 Tablet PO SCH (08:32)
[2016-11-11] MEDS: Nystatin 100,000 Unit/mL 5 mL Suspension PO SCH ×4 (08:33→22:05)
[2016-11-11] MEDS: Mupirocin 2% 22 Gm Ointment TOPICAL SCH ×2 (08:33→22:05)
[2016-11-11] MEDS: Diltiazem CD 180 mg ER24 Capsule PO SCH (08:33)
[2016-11-11 08:56] LABS: Mean Corpuscular Hemoglobin 28.7 pg (27.0-35.0); Mean Corpuscular Volume 84.4 fL (81-100)
[2016-11-11 08:57] LABS: Platelet Count 13 bil/L (150-400)
--- NOTE | 2016-11-11 09:10 | PROG NOTE ---
[address] [address] PROGRESS NOTE PATIENT: JEFF AMEZCUA : 1945 MR#: [id number] ADMIT: 10/24/2016 JOB ID: [id number] DATE: 11/11/2016 SUBJECTIVE: The patient is a 71-year-old gentleman with acute myelogenous leukemia, status post re-induction chemotherapy. He is pancytopenic. Laboratory studies today are pending. In general he feels pretty good. No fevers. No significant edema. He is breathing comfortably. No bleeding or atypical bruising. OBJECTIVE: Vitals: T 36.7, P 77, R 16, BP 134/70. HEENT: Conjunctivae slightly pale. Mucous membranes moist. No oral lesions. Nodes: No adenopathy in the neck or axilla. Chest: Clear. Cardiac exam: Regular rate and rhythm. Abdomen: Soft, nontender with normoactive bowel tones. No splenomegaly or masses. Extremities: No edema. 2+ distal pulses. No calf tenderness. No significant petechiae. LABORATORIES: Labs pending. 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 The patient has been pancytopenic. Await today's laboratory studies. If platelets are less than 15, hematocrit less than 25% or he has symptomatic thrombocytopenia/anemia, then arrange transfusion with irradiated blood products. Avoid G-CSF, as this could potentially stimulate a leukemic clone. Continue broad-spectrum antibiotics while we await recovery of his neutrophils, which should occur in the next 1-2 weeks. At that time we will repeat bone marrow studies to assess remission status. In the event that he is not in remission, referral to the [facility] for additional treatment would be recommended. However, if he is in remission, then he could be discharged once stable, anticipating future consolidation chemotherapy. Cc: Dr. Jesus RUSS
--- NOTE | 2016-11-11 10:43 | PROG NOTE ---
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 INTERVAL HISTORY: The patient continues to feel reasonably well. He denies any fevers, chills, headaches, sinus pains, sore throat, cough, shortness of breath or chest pain. No nausea, vomiting or diarrhea though he does have a bit of mucousy discharge from his rectal discharge occasionally. His small abrasions on his dorsal feet are painless and are being closely watched. PHYSICAL EXAMINATION: Reveals an afebrile gentleman, temperature 36.7, pulse 73, respiratory rate 16, blood pressure 134/78. He is saturating well on room air. He gradually appears more tired and is clearly losing a little bit of weight but he is nontoxic and alert this morning. Eyes without conjunctivitis. Oral cavity: No thrush or hairy leukoplakia. Neck: Supple. The anterior neck inflammatory lesions he had previously have basically resolved. His lungs quite clear posteriorly. Cardiac tones with soft systolic murmur unchanged. Right upper extremity PICC line benign. Abdomen: Slightly distended but entirely soft and nontender. No suprapubic fullness. On his left dorsal foot, he has a 9 mm erythematous lesion which was caused by trauma from sandals that were not fitting quite right. This appears uninfected. There is no purulence or warmth with respect to this area. On the right foot, there is about a 2 mm lesion in the same place secondary also to his sandals. This is completely unimpressive. LABORATORIES: Include white count 100 still, 13,000 platelets. Creatinine 0.49. LFTs are normal. Albumin 3.3. Urinalysis without white cells. Vanco trough 15. Fungitell has once again returned negative from the . Galactomannan repeat is pending. No new blood cultures have been recorded. A MRSA screen negative. IMAGING: Last done on the shows a clear chest. IMPRESSION: This patient continues to be profoundly neutropenic following his second attempted induction for AML. Recall that during his September admission he had Pseudomonas sepsis and during this admission he had a cellulitis of the neck which has resolved. At this point, we are maintaining broad-spectrum antibiotics with meropenem. I reviewed the literature. Some authors and experts have suggested that when there is prolonged neutropenia with the initial source of infection (in this case the Pseudomonas sepsis and the neck cellulitis) has resolved, one could consider switching to an oral quinolone such as levofloxacin and watching the patient with a low neutrophil count on a quinolone antibiotic. This is not a settled discussion in the literature, however, and I am a little uncomfortable narrowing the coverage with his neutrophil count remaining at 0. RECOMMENDATIONS: 1. Will continue with meropenem at this time. 2. Continue to closely watch the patient with the hope that later next week he will have some return of functional white blood cells. 3. I answered the questions from the patient and his and will continue our observation on meropenem and prophylactic posaconazole at this point.
[2016-11-11] MEDS ORDERED: 0.9% Sodium Chloride 250 ML ONE (17:35)
[2016-11-12] VITALS (10 sets, daily range): BP systolic 129–159; BP diastolic 62–83; PULSE 66–76; RESP 16–20; O2SAT 98
[2016-11-12] MEDS ORDERED: 0.9% Sodium Chloride 250 ML ONE ×3 (00:07→09:16)
[2016-11-12] MEDS: Meropenem Inj 2,000 MG in 0.9% Sodium Chloride 100 ML IV SCH ×4 (00:17→23:07)
[2016-11-12 03:35] LABS: Mean Corpuscular Hemoglobin 28.7 pg (27.0-35.0); Mean Corpuscular Volume 84.6 fL (81-100); Platelet Count 47 bil/L (150-400)
[2016-11-12] MEDS: Pantoprazole 20 mg ER24 Tablet PO SCH (06:05)
[2016-11-12] MEDS: Diltiazem CD 180 mg ER24 Capsule PO SCH (09:56)
[2016-11-12] MEDS: POSACONAZOLE PO SCH ×3 (09:56→17:22)
[2016-11-12] MEDS: Nystatin 100,000 Unit/mL 5 mL Suspension PO SCH ×4 (09:57→21:10)
[2016-11-12] MEDS: Mupirocin 2% 22 Gm Ointment TOPICAL SCH ×2 (09:57→21:10)
--- NOTE | 2016-11-12 16:29 | PROG NOTE ---
[address] [address] PROGRESS NOTE PATIENT: JEFF AMEZCUA : 1945 MR#: [id number] ADMIT: 10/24/2016 JOB ID: [id number] DATE: 11/12/2016 REASON FOR FOLLOWUP: Continued profound neutropenia in a patient with recent Pseudomonas sepsis and neck infection. INTERVAL HISTORY: Over the past 24 hours, there have been a couple of developments. One is that the patient has continued to have minimal stools on a frequent basis, which are interspersed with occasional larger normal bowel movements. The other concern is that he has developed some erythema of both hands and especially around both wrists, which he and his believes is due to overuse of hand sanitizers. They are concerned, however, as this rash is similar to the one he had over his anterior neck for which he was readmitted. The patient has had no fevers or chills, however. No sore throat. No significant cough. No chest pain, nausea, vomiting, diarrhea or dysuria. His frequent, very tiny bowel movements are actually more mucus than diarrhea and he occasionally has normal bowel movements. PHYSICAL EXAMINATION: Reveals an afebrile gentleman, temperature 36.8, pulse 70, respiratory rate 18, blood pressure 151/73. He is in no acute distress. Examination of the mental status: Normal. Oral cavity benign. lungs relatively clear. Cardiac tones without new murmur. PICC line in good position and free of inflammation. Abdomen soft and nontender. His wrists, and to a lesser extent, his hands, show a papular erythematous-type eruption, which could be due to contact dermatitis and is oddly symmetrical, suggesting perhaps it is due to something involving the use of both the hands. I carefully examined the rest of his body and there is no evidence of drug rash anywhere. LABORATORY STUDIES: Include white count which is stuck at 100, platelet count 47,000, creatinine 0.54. LFTs are normal. Serology: Negative Fungitell and galactomannan. That is our 4th set of negative. Fungitell and galactomannan studies. No new micro is available and no new imaging. IMPRESSION: This gentleman continues, after many weeks now, to be absolutely neutropenic with a neutrophil count right at zero. He had documented Pseudomonas sepsis when this all started and he was diagnosed with acute myeloid leukemia and then he was sent home while still neutropenic and readmitted with a neck infection. At this point, he seems to be doing fairly well, though I am a bit concerned about the rash on his hands. It does have the appearance of a contact-type dermatitis, however, and I hope that that is the explanation. We will need to closely watch to make sure. I am also a little concerned about his mucousy-type stools, though I think Clostridium difficile is unlikely, but it is probably reasonable to check a sample just to make sure. RECOMMENDATIONS: 1. Will continue to follow his hands and wrists very closely. 2. Continue with meropenem and posaconazole. 3. Will check the stool for C. difficile by PCR.
[2016-11-12] MEDS: 0.9% Sodium Chloride 1,000 ML IV SCH (19:40)
--- NOTE | 2016-11-12 19:42 | PCM.PNMED ---
Subjective Date of Service Nov 12, 2016 Subjective Patient is examined. is present for this meeting. He states that he started having real bad day area last night and this a.m. it slowed down but he still developed having 8-9 stools. PCR is ordered for C. difficile. Has not been collected yet. His mood has been depressed and we discussed possible medications to fix his mood. He says that he will consider them and give it some more time. He has been ambulating in the hallways. Denies overnight fevers and chills Rashes. Exam Vital Signs Vital Sign - Last Date Time Temp Pulse Resp B/P Pulse Ox O2 Delivery O2 Flow Rate FiO2 11/12/16 13:19 36.8 70 18 151/73 11/12/16 00:11 98 Room Air Intake and Output 11/11/16 11/11/16 11/12/16 Cumulative From/Thru 15:00 23:00 07:00 10/24/16 06:05 - 11/12/16 06:54 Intake Total 108 ml 1971 ml 654 ml 09770 ml Output Total 1900 ml 1200 ml 59631 ml Balance 108 ml 71 ml -546 ml 1339 ml Intake Oral 1360 ml 400 ml 84897 ml IV Total 108 ml 254 ml 21309 ml Packed Cells 1200 ml Platelets 611 ml 2040 ml Output Urine Total 1900 ml 1200 ml 41948 ml # Voids 13 # Bowel Movements 1 1 13 Exam Gen.: No acute distress sitting in chair wearing layers of clothes HEENT: Normocephalic atraumatic Neck: Negative for JVD trachea central healed up scabs over his razor cuts Heart: Regular rate and rhythm no S3-S4 sounds Lungs: Clear to auscultation no rales or wheezes Abdomen round: Nontender hyperactive bowel sounds are present Extremities negative for edema Skin: Rash on both feet much improved Neuro: No focal deficits IVs and Medications IV Fluids Started him on 100 mL/h normal saline Medications Reviewed: Medications were reviewed in detail Lab and Diagnostics Result Diagram: 11/12/1630911/12/16309 X-Rays, CTs and MRIs PROCEDURE: X-RAY CHEST ONE VIEW, PORTABLE ([id number]) INDICATIONS: 71 year-old male with neutropenic fevers. TECHNIQUE: One view of the chest was acquired. COMPARISON: None. FINDINGS: Surgical changes and devices: Right PICC is present, with tip in the upper superior vena cava. Lungs and pleura: No pleural effusions or pneumothorax. Lungs are clear. Mediastinum: Mediastinal contours appear normal. Heart size is normal. There is aortic atherosclerosis. Bones and chest wall: No suspicious bony lesions. Overlying soft tissues appear unremarkable. IMPRESSION: No acute cardiopulmonary disease. Dictated by: Shawn Marcial M.D. on 10/24/2016 at 7:29 Approved by: Shawn Marcial M.D. on 10/24/2016 at 7:29 Additional Diagnostics PROCEDURE: US SOFT TISSUE OF HEAD OR NECK SONOGRAM INDICATIONS: 71 year-old male with neutropenic fevers and neck swelling. Assess for abscess. TECHNIQUE: Real-time scanning was performed of the neck region of interest, with image documentation. COMPARISON: None. FINDINGS: In the region of interest, no fluid collections identified to suggest abscess. Normal-appearing sternocleidomastoid muscles are identified. No enlarged lymph nodes identified. IMPRESSION: No sonographic evidence for neck abscess. Dictated by: Shawn Marcial M.D. on 10/24/2016 at 8:02 Approved by: Shawn Marcial M.D. on 10/24/2016 at 8:03 Assessment & Plan 71 yo M w/ recent hospitalization 10/08-10/19 with newly diagnosed AML s/p induction ctx, pseudomonas bacteremia p/w fever with neck started 2days ago. acute, active Sepsis, SIRS+ fever/severe leukopenia/tachycardia,likely source:neck soft tissue infection with micro injury from shaving, possibly staph or strep, unlikely other infectious source-PICC seemed okay on exam, no oral thrush, CXR/ UA unremarkable. no GI/respiratory sx. 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 -clinically stable with stable hemodynamics, afebrile -Infectious disease has been consulted - appreciate ID input regarding abx of choice : They have recommended the patient to be on meropenem, posconazolem for prophylaxis -Blood culture negative to date - MRSA negative -Cryptococcus antigen negative -Galactomannan Ag, and fungal antibodies negative so far. Last set of lab results showed normal Galactomannan Ag, fungal antibodies are negative - Plan to contact Dr. aHckett with any changes in his vitals , fever or infection status -Patient's neck appears completely healed up -continue fentanyl prn given multiple opioid allergies -Started patient on 100 mL/h normal saline -Consider checking epididymitis on a periodic basis: Recheck this yesterday and he did not appear to have any erythema, swelling, tenderness Hypertension -Patient's hydralazine was reduced to 10 mg 3 times a day and 10 mg daily at bedtime due to drop in blood pressure this a.m. -Continue diltiazem 180 mg daily -Continue to monitor Volume overload (resolved) -Continue Lasix 40 mg daily by mouth daily -We will continue to follow and manage in the light of restarting IV fluids Inguinal rash most likely fungal (resolved) -Continue nystatin powder Chronic hyponatremia-possibly secondary to hydrochlorothiazide, POA, currently not on HCTZ and mildly worsened, likely also component of recent chem - Resolved Chronic anemia, POA -Patient received 2 units of PRBC on 11/08/16 Thrombocytopenia, POA - he was transfused several units of platelets -- Continue to monitor with daily labs AML with severe neutropenia, dxed in 10/12/2016, CBC on 10/29 showed concerning 20 % blast, he has completed reinduction chemo that was done for 7 days, started on 10/30/16. -White blood cell count on admission was 0.4 currently 0. 1 PICC line finding: notified by infusion services that the patient's PICC line is out by 4 cm now at the brachiocephalic junction. Left a message for oncology. The patient's oncologist is aware of the conversation he had with the patient. Newly found bilateral epididymitis on US testicle, on 10/28, unclear clinical significance of this, possible leukemic infiltration, stable, unlikely new source of infection and patient also covered well with abx. -- Negative for acute infectious findings Disposition: He will be monitored until his cell counts normalize in the hospital for oncology diet:regular as tolerate dvt ppx:SCD Full Code VTE Prophylaxis: Other (not needed platelets are 7) VTE Mechanical Devices: Intermittant Pneumatic CD Resuscitation Status: CPR: Attempt Resuscitation Amanda Currie DO Nov 12, 2016 19:42
[2016-11-12] MEDS: LORazepam 1 mg Tablet PO PRN (21:11)
[2016-11-13] VITALS (7 sets, daily range): BP systolic 129–162; BP diastolic 66–77; PULSE 68–75; RESP 16; O2SAT 95–99
[2016-11-13] MEDS: 0.9% Sodium Chloride 1,000 ML IV SCH ×2 (04:49→15:03)
[2016-11-13 05:22] LABS: Mean Corpuscular Hemoglobin 28.9 pg (27.0-35.0); Mean Corpuscular Volume 83.2 fL (81-100); Platelet Count 27 bil/L (150-400)
[2016-11-13 05:48] LABS: BASOPHILS % (AUTO) 0 % (0-3); EOSINOPHILS % (AUTO) 0 % (0-5); MONOCYTES % (AUTO) 0 % (4-12); NEUTROPHILS % (AUTO) 7.1 % (40-74)
--- NOTE | 2016-11-13 07:49 | PROG NOTE ---
[address] [address] PROGRESS NOTE PATIENT: JEFF AMEZCUA : 1945 MR#: [id number] ADMIT: 10/24/2016 JOB ID: [id number] DATE: 11/13/2016 SUBJECTIVE: The patient is a 71-year-old gentleman with acute myelogenous leukemia, status post re-induction chemotherapy, which began on October 30, 2016. He completed a 7 + 3 on November 06, 2016. Hematologic parameters have shown pancytopenia. He has been transfusion dependent. He has not had any positive blood cultures, although he has previous blood cultures positive for Pseudomonas aeruginosa and urine for Enterococcus faecalis. In the last 24 hours, he has developed frequent semi loose stools. Testing for C. difficile is pending. Otherwise he has no acute concerns. No rashes. Redness and irritation in the neck and upper chest are much improved. OBJECTIVE: Vitals: T 37.0, P 71, R 16, BP 146/70. HEENT: Conjunctivae slightly pale. Mucous membranes moist. No oral lesions. Nodes: No adenopathy in the neck or axilla. Chest: Clear. No wheezes. Cardiac examination: Regular rate and rhythm with normal S1, S2. Abdomen: Soft, nontender. Normoactive bowel tones. No splenomegaly or masses. Extremities: No edema. 2+ distal pulses. No calf tenderness. LABORATORIES: WBC 0.1 with 7% neutrophils and 93% lymphocytes. There were no blasts. Hemoglobin 9.8, hematocrit 28.2%, platelets 27,000. 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 It has been two weeks since he began his re-induction chemotherapy with seven days of SIMÓN-C and three days of idarubicin. As expected, he is pancytopenic. No indication for transfusion support today. Please transfuse if hematocrit is less than 25%, platelets are less than 15,000, or he has symptomatic anemia/thrombocytopenia. All blood products should be irradiated. Avoid G-CSF. Continue broad-spectrum antibiotics. Await results of C. difficile testing, and adjust his regimen appropriately. If C. difficile test is negative, he could take Imodium or Lomotil to control his frequent bowel movements. Anticipate repeat bone marrow studies as his hematologic parameters begin to increase in the next 7-10 days.
[2016-11-13] MEDS: Nystatin 100,000 Unit/mL 5 mL Suspension PO SCH ×4 (09:06→22:19)
[2016-11-13] MEDS: Pantoprazole 20 mg ER24 Tablet PO SCH (09:06)
[2016-11-13] MEDS: POSACONAZOLE PO SCH ×3 (09:06→17:35)
[2016-11-13] MEDS: Meropenem Inj 2,000 MG in 0.9% Sodium Chloride 100 ML IV SCH ×3 (09:06→22:57)
[2016-11-13] MEDS: Mupirocin 2% 22 Gm Ointment TOPICAL SCH ×2 (09:06→20:17)
[2016-11-13] MEDS: Diltiazem CD 180 mg ER24 Capsule PO SCH (09:06)
--- NOTE | 2016-11-13 20:46 | PCM.PNMED ---
Subjective Date of Service Nov 13, 2016 Subjective He got the good news from his oncologist that there is no cancer in his white blood cells. He also says his diarrhea is not sudden he had has been intermittent. He was unable to give a stool specimen since his last try. Apparently his left scientology was collected in a incorrect container due to change rules and does a step but unable to send it to the lab. Fluids are stopped p.m. He is a rash on both feet has improved. He states that he does not need any medications for his more as he got the good news. He is very appreciative of care in this hospital and his oncologist told him he will need 2 more of each of 5 day visits to the hospital for further treatment. His oncologist also plans to do a bone marrow week from Tuesday. He has no other concerns Exam Vital Signs Vital Sign - Last Date Time Temp Pulse Resp B/P Pulse Ox O2 Delivery O2 Flow Rate FiO2 11/13/16 01:00 Intake and Output 11/12/16 11/12/16 11/13/16 Cumulative From/Thru 15:00 23:00 07:00 10/24/16 06:05 - 11/13/16 02:16 Intake Total 878 ml 1237 ml 85987 ml Output Total 900 ml 93880 ml Balance 878 ml 337 ml 2554 ml Intake Oral 1237 ml 50407 ml IV Total 278 ml 43445 ml Packed Cells 600 ml 1800 ml Platelets 2040 ml Output Urine Total 900 ml 95685 ml # Voids 13 # Bowel Movements 6 19 Exam Gen.: Sitting up in chair dressed in several layers of clothing HEENT: Normocephalic, atraumatic Heart: Regular rate and rhythm grade 1+ systolic murmur with radiation to neck Lungs: CTA, no crackles or wheezes Abdomen: Nontender, nondistended, normal bowel sounds Extremities: Negative for erythema and edema Skin: Negative for rash on his both feet Psych: Improvement in his mood Neuro no focal deficits IVs and Medications Medications Reviewed: Medications were reviewed in detail Lab and Diagnostics Result Diagram: 11/13/16 0450 11/12/16 0310 X-Rays, CTs and MRIs PROCEDURE: X-RAY CHEST ONE VIEW, PORTABLE ([id number]) INDICATIONS: 71 year-old male with neutropenic fevers. TECHNIQUE: One view of the chest was acquired. COMPARISON: None. FINDINGS: Surgical changes and devices: Right PICC is present, with tip in the upper superior vena cava. Lungs and pleura: No pleural effusions or pneumothorax. Lungs are clear. Mediastinum: Mediastinal contours appear normal. Heart size is normal. There is aortic atherosclerosis. Bones and chest wall: No suspicious bony lesions. Overlying soft tissues appear unremarkable. IMPRESSION: No acute cardiopulmonary disease. Dictated by: Shawn Marcial M.D. on 10/24/2016 at 7:29 Approved by: Shawn Marcial M.D. on 10/24/2016 at 7:29 Additional Diagnostics PROCEDURE: US SOFT TISSUE OF HEAD OR NECK SONOGRAM INDICATIONS: 71 year-old male with neutropenic fevers and neck swelling. Assess for abscess. TECHNIQUE: Real-time scanning was performed of the neck region of interest, with image documentation. COMPARISON: None. FINDINGS: In the region of interest, no fluid collections identified to suggest abscess. Normal-appearing sternocleidomastoid muscles are identified. No enlarged lymph nodes identified. IMPRESSION: No sonographic evidence for neck abscess. Dictated by: Shawn Marcial M.D. on 10/24/2016 at 8:02 Approved by: Shawn Marcial M.D. on 10/24/2016 at 8:03 Assessment & Plan 71 yo M w/ recent hospitalization 10/08-10/19 with newly diagnosed AML s/p induction ctx, pseudomonas bacteremia p/w fever with neck started 2days ago. acute, active Sepsis, SIRS+ fever/severe leukopenia/tachycardia,likely source:neck soft tissue infection with micro injury from shaving, possibly staph or strep, unlikely other infectious source-PICC seemed okay on exam, no oral thrush, CXR/ UA unremarkable. no GI/respiratory sx. 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 -clinically stable with stable hemodynamics, afebrile -Infectious disease has been consulted - appreciate ID input regarding abx of choice : They have recommended the patient to be on meropenem, posconazolem for prophylaxis -Blood culture negative to date - MRSA negative -Cryptococcus antigen negative -Galactomannan Ag, and fungal antibodies negative so far. Last set of lab results showed normal Galactomannan Ag, fungal antibodies are negative - Plan to contact Dr. Hackett with any changes in his vitals , fever or infection status -Patient's neck appears completely healed up -continue fentanyl prn given multiple opioid allergies -Discontinued IV fluids -Consider checking epididymitis on a periodic basis: Recheck this yesterday and he did not appear to have any erythema, swelling, tenderness Hypertension -Patient's hydralazine was reduced to 10 mg 3 times a day and 10 mg daily at bedtime due to drop in blood pressure this a.m. -Continue diltiazem 180 mg daily -Continue to monitor Volume overload (resolved) -Continue Lasix 40 mg daily by mouth daily Inguinal rash most likely fungal (resolved) -Continue nystatin powder Chronic hyponatremia-possibly secondary to hydrochlorothiazide, POA, currently not on HCTZ and mildly worsened, likely also component of recent chem - Continue to monitor Chronic anemia, POA -Patient received 2 units of PRBC on 11/08/16 Thrombocytopenia, POA - he was transfused several units of platelets -- Continue to monitor with daily labs AML with severe neutropenia, dxed in 10/12/2016, CBC on 10/29 showed concerning 20 % blast, he has completed reinduction chemo that was done for 7 days, started on 10/30/16. -White blood cell count on admission was 0.4 currently 0. 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 It has been two weeks since he began his re-induction chemotherapy with seven days of SIMÓN-C and three days of idarubicin. As expected, he is pancytopenic. No indication for transfusion support today. Please transfuse if hematocrit is less than 25%, platelets are less than 15,000, or he has symptomatic anemia/thrombocytopenia. All blood products should be irradiated. Avoid G-CSF. Continue broad-spectrum antibiotics. Await results of C. difficile testing, and adjust his regimen appropriately. If C. difficile test is negative, he could take Imodium or Lomotil to control his frequent bowel movements. Anticipate repeat bone marrow studies as his hematologic parameters begin to increase in the next 7-10 days." PICC line finding: notified by infusion services that the patient's PICC line is out by 4 cm now at the brachiocephalic junction. Left a message for oncology. The patient's oncologist is aware of the conversation he had with the patient. Newly found bilateral epididymitis on US testicle, on 10/28, unclear clinical significance of this, possible leukemic infiltration, stable, unlikely new source of infection and patient also covered well with abx. -- Negative for acute infectious findings Disposition: He will be monitored until his cell counts normalize in the hospital for oncology diet:regular as tolerate dvt ppx:SCD Full Code VTE Prophylaxis: Other (not needed platelets are 7) VTE Mechanical Devices: Intermittant Pneumatic CD Resuscitation Status: CPR: Attempt Resuscitation Amanda Currie DO Nov 13, 2016 05:26
[2016-11-13] MEDS: LORazepam 1 mg Tablet PO PRN (22:19)
[2016-11-14] VITALS (7 sets, daily range): BP systolic 122–167; BP diastolic 73–86; PULSE 72–77; RESP 12–18; O2SAT 97–99
[2016-11-14] MEDS: Meropenem Inj 2,000 MG in 0.9% Sodium Chloride 100 ML IV SCH ×2 (06:14→14:21)
[2016-11-14 06:29] LABS: Mean Corpuscular Hemoglobin 28.7 pg (27.0-35.0); Mean Corpuscular Volume 82.8 fL (81-100)
[2016-11-14 06:32] LABS: Platelet Count 22 bil/L (150-400)
[2016-11-14] MEDS: POSACONAZOLE PO SCH ×3 (09:25→17:28)
[2016-11-14] MEDS: Nystatin 100,000 Unit/mL 5 mL Suspension PO SCH ×4 (09:25→21:03)
[2016-11-14] MEDS: Diltiazem CD 180 mg ER24 Capsule PO SCH (09:26)
[2016-11-14] MEDS: Pantoprazole 20 mg ER24 Tablet PO SCH (09:26)
[2016-11-14] MEDS: Mupirocin 2% 22 Gm Ointment TOPICAL SCH ×2 (09:26→21:04)
--- NOTE | 2016-11-14 14:29 | PROG NOTE ---
[address] [address] PROGRESS NOTE PATIENT: JEFF AMEZCUA : 1945 MR#: [id number] ADMIT: 10/24/2016 JOB ID: [id number] DATE: 11/14/2016 SUBJECTIVE: The patient is a 71-year-old gentleman with acute myelogenous leukemia, status post re-induction chemotherapy. This is this day 15. Hematologic parameters continue to show pancytopenia. He has been transfusion-dependent. He has not had any positive blood or stool cultures, although he previously had blood culture positive for Pseudomonas aeruginosa and urine for Enterococcus faecalis. Stool testing for C. difficile is still pending, after yesterday's sample was provided in the wrong collection device. He denies any fevers or chills. He is staying active, walking over a mile a day, usually with his . OBJECTIVE: Vitals: T 36.8, P 75, R 14, BP 131/75. O2 saturation 98% on room air. HEENT: Conjunctivae slightly pale. Mucous membranes moist. Chest clear. Cardiac exam: Regular rate and rhythm. Abdomen: Soft, nontender, with normoactive bowel tones. No splenomegaly or masses. Extremities: No edema. 2+ distal pulses. No calf tenderness. LABORATORIES: WBC 0.1, hemoglobin 10.0, hematocrit 28.8%, platelets 22,000. ASSESSMENT AND PLAN: Acute myelogenous leukemia, day 15 status post re-induction chemotherapy: Clinically stable. No indication for transfusion support today. Continue broad-spectrum antibiotics. Await results of C. difficile testing after additional stool specimen is provided. Anticipate bone marrow studies once his hematologic parameters begin to recover. CC: Dr. Amanda Currie
--- NOTE | 2016-11-14 19:07 | PCM.PNMED ---
Subjective Date of Service Nov 14, 2016 Subjective Patient is seen and examined. He states that his diarrhea has resolved. Now he has a rash on his chest and also on the top of his abdomen. He complains of no other problems. His rash does not itch or burn. He had no fevers or chills overnight. His mood has been good No other concerns today Exam Vital Signs Vital Sign - Last Date Time Temp Pulse Resp B/P Pulse Ox O2 Delivery O2 Flow Rate FiO2 11/14/16 06:18 37.5 75 18 129/74 97 Room Air Intake and Output 11/13/16 11/13/16 11/14/16 Cumulative From/Thru 15:00 23:00 07:00 10/24/16 06:05 - 11/14/16 06:19 Intake Total 2428 ml 1281 ml 21448 ml Output Total 1000 ml 1850 ml 48375 ml Balance 1428 ml -569 ml 2660 ml Intake Oral 1100 ml 850 ml 04367 ml IV Total 1328 ml 431 ml 79502 ml Packed Cells 1800 ml Platelets 2040 ml Output Urine Total 1000 ml 1850 ml 03540 ml # Voids 3 16 # Bowel Movements 0 21 Exam Gen.: No acute distress sitting up in chair covered in several layers of clothing HEENT: Normocephalic, atraumatic Heart: Regular rate and rhythm, grade 1+ systolic murmur with radiation to neck Lungs: Clear to auscultation bilaterally no crackles or wheezes appreciated Abdomen: Nontender nondistended normal bowel sounds Skin: PICC line site is clean without erythema or pruritus, he does have a blanchable, diffuse macular, erythematous rash over his chest and also over the top of his abdomen. He seems to have a couple of days macules on his arm as well and is neuro: No focal deficits Psych: Negative for anxiety and depression IVs and Medications IV Fluids None Medications Reviewed: Medications were reviewed in detail Lab and Diagnostics Laboratory Tests Test 11/14/16 05:30 White Blood Count 0.1th/mm3 (3.8-10.1) Red Blood Count 3.48mil/mm3 (4.40-5.80) Hemoglobin 10.0g/dL (13.8-17.2) Hematocrit 28.8% (41.0-50.0) Mean Corpuscular Volume 82.8fL (81-100) Mean Corpuscular Hemoglobin 28.7pg (27.0-35.0) Mean Corpuscular Hemoglobin Concent 34.7% (32.0-37.0) Red Cell Distribution Width 13.2% (12.3-15.4) Platelet Count 22bil/L (150-400) Neutrophils (%) (Auto) % (40-74) Lymphocytes (%) (Auto) % (14-46) Monocytes (%) (Auto) % (4-12) Eosinophils (%) (Auto) % (0-5) Basophils (%) (Auto) % (0-3) Microbiology 10/24/16 Blood Culture - Final, Complete NO GROWTH AFTER 5 DAYS 10/26/16 MRSA Screen - Final, Complete Result Diagram: 11/13/16 0450 11/13/16 1154 X-Rays, CTs and MRIs PROCEDURE: X-RAY CHEST ONE VIEW, PORTABLE ([id number]) INDICATIONS: 71 year-old male with neutropenic fevers. TECHNIQUE: One view of the chest was acquired. COMPARISON: None. FINDINGS: Surgical changes and devices: Right PICC is present, with tip in the upper superior vena cava. Lungs and pleura: No pleural effusions or pneumothorax. Lungs are clear. Mediastinum: Mediastinal contours appear normal. Heart size is normal. There is aortic atherosclerosis. Bones and chest wall: No suspicious bony lesions. Overlying soft tissues appear unremarkable. IMPRESSION: No acute cardiopulmonary disease. Dictated by: Shawn Marcial M.D. on 10/24/2016 at 7:29 Approved by: Shawn Marcial M.D. on 10/24/2016 at 7:29 Additional Diagnostics PROCEDURE: US SOFT TISSUE OF HEAD OR NECK SONOGRAM INDICATIONS: 71 year-old male with neutropenic fevers and neck swelling. Assess for abscess. TECHNIQUE: Real-time scanning was performed of the neck region of interest, with image documentation. COMPARISON: None. FINDINGS: In the region of interest, no fluid collections identified to suggest abscess. Normal-appearing sternocleidomastoid muscles are identified. No enlarged lymph nodes identified. IMPRESSION: No sonographic evidence for neck abscess. Dictated by: Shawn Marcial M.D. on 10/24/2016 at 8:02 Approved by: Shawn Marcial M.D. on 10/24/2016 at 8:03 Assessment & Plan 71 yo M w/ recent hospitalization 10/08-10/19 with newly diagnosed AML s/p induction ctx, pseudomonas bacteremia p/w fever with neck started 2days ago. acute, active Sepsis, SIRS+ fever/severe leukopenia/tachycardia,likely source:neck soft tissue infection with micro injury from shaving, possibly staph or strep, unlikely other infectious source-PICC seemed okay on exam, no oral thrush, CXR/ UA unremarkable. no GI/respiratory sx. no signs of [employer]ICE SU[employer]OCIATE infection. -clinically stable with stable hemodynamics, afebrile -Infectious disease has been consulted - appreciate ID input regarding abx of choice : They have recommended the patient to be on meropenem, posconazolem for prophylaxis -Blood culture negative to date - MRSA negative -Cryptococcus antigen negative -Galactomannan Ag, and fungal antibodies negative so far. Last set of lab results showed normal Galactomannan Ag, fungal antibodies are negative - Plan to contact Dr. Hackett with any changes in his vitals , fever or infection status -Patient's neck appears completely healed up -continue fentanyl prn given multiple opioid allergies -Discontinued IV fluids -Consider checking epididymitis on a periodic basis: Rechecked this on 11/13/16 and he did not appear to have any erythema, swelling, tenderness Diarrhea onset 11/12/16: Appears to have resolved after 2 days. Stool culture ordered is still outstanding Macular diffuse rash over chest and abdomen onset 11/14/16: -- This appears to be related to his recent diarrhea, likely due to viral infection. Could be due to drug rash per Dr. Hackett, he asked for meropenem to be discontinued as this may have caused the rash. -- Started Levaquin by mouth [address] Hackett. Hypertension -Patient's hydralazine was reduced to 10 mg 3 times a day and 10 mg daily at bedtime due to drop in blood pressure this a.m. -Continue diltiazem 180 mg daily -Continue to monitor Volume overload (resolved) -Continue Lasix 40 mg daily by mouth daily Inguinal rash most likely fungal (resolved) -Continue nystatin powder Chronic hyponatremia-possibly secondary to hydrochlorothiazide, POA, currently not on HCTZ and mildly worsened, likely also component of recent chem - Continue to monitor Chronic anemia, POA -Patient received 2 units of PRBC on 11/08/16 Thrombocytopenia, POA - he was transfused several units of platelets -- Continue to monitor with daily labs AML with severe neutropenia, dxed in 10/12/2016, CBC on 10/29 showed concerning 20 % blast, he has completed reinduction chemo that was done for 7 days, started on 10/30/16. -White blood cell count on admission was 0.4 currently 0. 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 It has been two weeks since he began his re-induction chemotherapy with seven days of SIMÓN-C and three days of idarubicin. As expected, he is pancytopenic. No indication for transfusion support today. Please transfuse if hematocrit is less than 25%, platelets are less than 15,000, or he has symptomatic anemia/thrombocytopenia. All blood products should be irradiated. Avoid G-CSF. Continue broad-spectrum antibiotics. Await results of C. difficile testing, and adjust his regimen appropriately. If C. difficile test is negative, he could take Imodium or Lomotil to control his frequent bowel movements. Anticipate repeat bone marrow studies as his hematologic parameters begin to increase in the next 7-10 days." PICC line finding: notified by infusion services that the patient's PICC line is out by 4 cm now at the brachiocephalic junction. Left a message for oncology. The patient's oncologist is aware of the conversation he had with the patient. Newly found bilateral epididymitis on US testicle, on 10/28, unclear clinical significance of this, possible leukemic infiltration, stable, unlikely new source of infection and patient also covered well with abx. -- Negative for acute infectious findings Disposition: He will be monitored until his cell counts normalize in the hospital for oncology diet:regular as tolerate dvt ppx:SCD Full Code VTE Prophylaxis: Other (not needed platelets are 7) VTE Mechanical Devices: Intermittant Pneumatic CD Resuscitation Status: CPR: Attempt Resuscitation Amanda Currie DO Nov 14, 2016 06:22
[2016-11-14] MEDS: LORazepam 1 mg Tablet PO PRN (21:13)
[2016-11-15] VITALS (7 sets, daily range): BP systolic 105–169; BP diastolic 64–75; PULSE 63–79; RESP 16; O2SAT 97–100
[2016-11-15 05:20] LABS: Mean Corpuscular Hemoglobin 28.6 pg (27.0-35.0); Mean Corpuscular Volume 83.4 fL (81-100)
[2016-11-15 05:22] LABS: Platelet Count 17 bil/L (150-400)
[2016-11-15] MEDS: levoFLOXacin 750 mg Tablet PO SCH (08:42)
[2016-11-15] MEDS: Diltiazem CD 180 mg ER24 Capsule PO SCH (08:42)
[2016-11-15] MEDS: POSACONAZOLE PO SCH ×3 (08:42→17:06)
[2016-11-15] MEDS: Nystatin 100,000 Unit/mL 5 mL Suspension PO SCH ×4 (08:43→20:51)
[2016-11-15] MEDS: Pantoprazole 20 mg ER24 Tablet PO SCH (08:43)
[2016-11-15] MEDS: Mupirocin 2% 22 Gm Ointment TOPICAL SCH ×2 (08:44→20:53)
[2016-11-15] MEDS ORDERED: Hydrocortisone 50 mg/mL 2 mL Inj IV SCH (09:05)
--- NOTE | 2016-11-15 11:49 | PROG NOTE ---
[address] [address] PROGRESS NOTE PATIENT: JEFF AMEZCUA : 1945 MR#: [id number] ADMIT: 10/24/2016 JOB ID: [id number] ONCOLOGY PROGRESS NOTE: DATE: 11/15/2016 SUBJECTIVE: Patient is a 71-year-old gentleman with acute myelogenous leukemia, status post re-induction chemotherapy. Hematologic parameters continue to show pancytopenia. He has been transfusion-dependent. Overnight, he had a fever to 38.3 centigrade. Note that cultures during the current hospitalization have been negative, although he previously had a blood culture positive for Pseudomonas aeruginosa and urine for Enterococcus faecalis. He has had frequent loose stools over the weekend. Testing for C. difficile is pending. He has been active, but notes that his lower back pain is beginning to act up, radiating into his right leg. He has had prior low back surgery. OBJECTIVE: Vitals: T 38.3, P 79, R 16, BP 120/69. HEENT: Conjunctivae slightly pale. Mucous membranes moist. No oral lesions. Nodes: No adenopathy in the neck, axilla, or groin. Skin: He has an erythematous macular papular rash primarily over the chest, with a few scattered lesions on the extremities that may be associated with hair follicles. Chest: Clear throughout, no wheezes. Cardiac exam: Regular rate and rhythm with normal S1, S2. Abdomen: Soft, nontender. Normoactive bowel tones. Extremities: No edema. 2+ distal pulses. No calf tenderness. LABORATORIES: WBC 0.1, hemoglobin 9.5, hematocrit 27.7%, platelets 17,000. Sodium 129, potassium 3.6, BUN 12, creatinine 0.53, glucose 104, AST 25, ALT 44, alkaline phosphatase 125. ASSESSMENT AND PLAN: Acute myelogenous leukemia, day 16 status post re-induction chemotherapy: Clinically stable. Platelets continue to fall. Type and cross. Transfuse 2 units irradiated platelets today after premedication with Tylenol 650 mg by mouth and hydrocortisone 50 mg IV. Fever spike overnight is worrisome. Obtain a random blood culture at this time, and repeat blood cultures x2 if temperature rises above 38 degrees centigrade. He is on Levaquin 750 mg by mouth daily and posaconazole 200 mg by mouth three times daily. Meropenem was discontinued yesterday prior to his fever. Await results of C. difficile testing of stool. I anticipate that his white blood cell count and other hematologic parameters will gradually begin to improve in the next 7-10 days. As this begins to occur, we will schedule repeat bone marrow studies to assess remission status.
[2016-11-15] MEDS ORDERED: 0.9% Sodium Chloride 250 ML ONE (12:10)
--- NOTE | 2016-11-15 14:29 | PROG NOTE ---
[address] [address] PROGRESS NOTE PATIENT: JEFF AMEZCUA : 1945 MR#: [id number] ADMIT: 10/24/2016 JOB ID: [id number] DATE: 11/15/2016 REASON FOR FOLLOWUP: Prolonged neutropenia with Pseudomonas sepsis followed by soft tissue infection. INTERVAL HISTORY: Over the weekend, there have been some developments which I was called about. The patient has developed a rash which is across the anterior midchest. This rash is neither painful nor pruritic but was of great concern, of course, to the nursing staff as well as the physicians data acquisition technician. I was contacted about this by telephone yesterday and recommended that we switch from meropenem to levofloxacin out of concern that he was developing a meropenem drug rash, though I am no longer as concerned about that today. The patient notes that this rash has come on over the last couple days and has not been painful or pruritic as noted above. There has been no drainage from it. He also denies any ongoing headache, any sore throat or sores in the mouth, any trouble swallowing, cough, shortness of breath, or chest pain. He has had no nausea or nausea, and the small mucousy stools that have troubled him earlier have gone away. No dysuria and no troubles in the extremities that he is aware of. His PICC line continues to function fairly well. PHYSICAL EXAMINATION: Reveals a gentleman who was febrile this morning to 38.3. This is the highest fever throughout the second of his neutropenic admissions. His temperature right now 37.2, pulse 74, respiratory rate 16, blood pressure 105/64. He is saturating 97% on room air. The patient's mental status is entirely normal. His oral cavity is without thrush, oral ulcers, or pharyngitis. His neck is supple and without adenopathy. The anterior lower neck cellulitis he had previously has resolved. His lungs are clear. His cardiac tones are regular rate and rhythm without murmur. His PICC line in the right upper extremity appears benign. His abdomen is soft and nontender. He does not have a Gill catheter. The rash consists of 20 or so purplish, erythematous papular lesions scattered along the mid chest bilaterally. These are not vesicular and do not have a substance to them when they are palpated. They are not associated with EKG leads or other applied devices. The left dorsal foot has about a 4 mm erythematous, very shallow ulceration without surrounding cellulitis or tenderness. This is from an ill-fitting slipper he wore earlier. LABORATORY STUDIES: Include white count still 100, and that is all lymphocytes. Hematocrit 27, platelet count 17,000. Creatinine 0.53. LFTs are normal. Albumin 2.9. Urine without white cells, not surprisingly. Micro studies include a negative Fungitell and galactomannan x4. A MRSA screen of the nares negative, and blood cultures negative. Chest x-ray last done a week ago was basically normal. IMPRESSION: We are now well into our second month of absolute neutropenia in this very ill but surprisingly clinically stable gentleman. Yesterday was really his first documented temperature, and it was short lived and has not recurred. There are many possible causes for fever here, including the administration of blood products, drug fever, or this could be an early sign of a potentially life-threatening infection. The differential diagnosis for fevers, of course, in a neutropenic patient would be very broad. I would be concerned certainly about infection about the peripherally inserted central catheter line, as well as the possibility of an emerging pneumonia, typhlitis, disseminated viral or fungal infection and many other worrisome possibilities. At this point, the patient looks remarkably nontoxic, and I am hoping that this single isolated low-grade fever spike is of no great importance or perhaps was related to some sensitization to platelets or other blood products. RECOMMENDATIONS: 1. Blood cultures x2 will be obtained today. I note that a single blood culture set was ordered previously, but I would prefer to go ahead and simply collect two additional sets through the skin, and these will be fungal blood cultures to be obtained through the skin and the PICC. 2. Galactomannan and Fungitell will be repeated today. 3. Will continue with our current antibiotic regimen which includes levofloxacin, as well as oral posaconazole, but will quickly change this should the patient have additional fevers or deteriorate in any way. My next choice for antibiotics would likely include a combination of Zosyn, levo, and daptomycin unless there are pulmonary infiltrates, in which case we would use vancomycin in lieu of the daptomycin. Please do not hesitate to call me on this patient at any time should he develop fevers or signs of toxicity.
--- NOTE | 2016-11-15 17:37 | PCM.PNMED ---
Subjective Date of Service Nov 15, 2016 Subjective Low-grade fever, broke with a sweat. Denies chest pain, dyspnea, nausea or vomiting Exam Vital Signs Vital Sign - Last Date Time Temp Pulse Resp B/P Pulse Ox O2 Delivery O2 Flow Rate FiO2 11/15/16 17:06 36.7 65 16 133/74 100 Room Air Intake and Output 11/14/16 11/14/16 11/15/16 Cumulative From/Thru 15:00 23:00 07:00 10/24/16 06:05 - 11/15/16 06:29 Intake Total 1100 ml 595 ml 00272 ml Output Total 1600 ml 1425 ml 15281 ml Balance -500 ml -830 ml 1330 ml Intake Oral 1100 ml 200 ml 36299 ml IV Total 395 ml 18946 ml Packed Cells 1800 ml Platelets 2040 ml Output Urine Total 1600 ml 1425 ml 67571 ml # Voids 16 # Bowel Movements 0 0 21 Exam Gen.- A+ O 3 no apparent distress. Thin male sitting up in chair Eyes- open conjunctiva clear, pupils equal nonicteric ENT- ears normal, nose normal Neck- supple/trach midline CVS-normal rate Lungs-normal rate and effort no accessory muscle GI-abdomen flat Musc- moving 4 no obvious deformity Neuro- cranial nerves II through XII intact to gross examination, nonfocal Skin- warm and dry, no rashes/lesions/wounds noted Psych- pleasant and appropriate, Lab and Diagnostics Result Diagram: 11/15/16 0500 11/15/16 0500 X-Rays, CTs and MRIs PROCEDURE: X-RAY CHEST ONE VIEW, PORTABLE ([id number]) INDICATIONS: 71 year-old male with neutropenic fevers. TECHNIQUE: One view of the chest was acquired. COMPARISON: None. FINDINGS: Surgical changes and devices: Right PICC is present, with tip in the upper superior vena cava. Lungs and pleura: No pleural effusions or pneumothorax. Lungs are clear. Mediastinum: Mediastinal contours appear normal. Heart size is normal. There is aortic atherosclerosis. Bones and chest wall: No suspicious bony lesions. Overlying soft tissues appear unremarkable. IMPRESSION: No acute cardiopulmonary disease. Dictated by: Shawn Marcial M.D. on 10/24/2016 at 7:29 Approved by: Shawn Marcial M.D. on 10/24/2016 at 7:29 Additional Diagnostics PROCEDURE: US SOFT TISSUE OF HEAD OR NECK SONOGRAM INDICATIONS: 71 year-old male with neutropenic fevers and neck swelling. Assess for abscess. TECHNIQUE: Real-time scanning was performed of the neck region of interest, with image documentation. COMPARISON: None. FINDINGS: In the region of interest, no fluid collections identified to suggest abscess. Normal-appearing sternocleidomastoid muscles are identified. No enlarged lymph nodes identified. IMPRESSION: No sonographic evidence for neck abscess. Dictated by: Shawn Marcial M.D. on 10/24/2016 at 8:02 Approved by: Shawn Marcial M.D. on 10/24/2016 at 8:03 Assessment & Plan 71 yo M w/ recent hospitalization 10/08-10/19 with newly diagnosed AML s/p induction ctx, pseudomonas bacteremia p/w fever with neck started 2days ago. 11/15 meeting medically complex patient who is currently stable #Neutropenic fever, recent pseudomonal bacteremia- Levaquin/posaconazole 11/15 -clinically stable with stable hemodynamics, afebrile -Infectious disease for antibiotic/antifungal's -Blood culture negative to date - MRSA negative -Cryptococcus antigen negative -Galactomannan Ag, and fungal antibodies negative so far. Last set of lab results showed normal Galactomannan Ag, fungal antibodies are negative -Consider checking epididymitis on a periodic basis: Rechecked this on 11/13/16 and he did not appear to have any erythema, swelling, tenderness # Diarrhea onset 11/12/16: Appears to have resolved after 2 days. Stool culture ordered is still outstanding # Macular diffuse rash over chest and abdomen onset 11/14/16: Much improved 11/15 -- This appears to be related to his recent diarrhea, likely due to viral infection. Could be due to drug rash per Dr. Hackett, he asked for meropenem to be discontinued as this may have caused the rash. -- Started Levaquin by mouth [address] Hackett. Hypertension -Patient's hydralazine was reduced to 10 mg 3 times a day and 10 mg daily at bedtime due to drop in blood pressure this a.m. -Continue diltiazem 180 mg daily -Continue to monitor Volume overload (resolved) -Continue Lasix 40 mg daily by mouth daily Inguinal rash most likely fungal (resolved) -Continue nystatin powder Chronic hyponatremia-possibly secondary to hydrochlorothiazide, POA, currently not on HCTZ and mildly worsened, likely also component of recent chem - Continue to monitor Chronic anemia, POA -Patient received 2 units of PRBC on 11/08/16 Thrombocytopenia, POA - he was transfused several units of platelets -- Continue to monitor with daily labs AML with severe neutropenia, dxed in 10/12/2016, CBC on 10/29 showed concerning 20 % blast, he has completed reinduction chemo that was done for 7 days, started on 10/30/16. -White blood cell count on admission was 0.4 currently 0. 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 It has been two weeks since he began his re-induction chemotherapy with seven days of SIMÓN-C and three days of idarubicin. As expected, he is pancytopenic. No indication for transfusion support today. Please transfuse if hematocrit is less than 25%, platelets are less than 15,000, or he has symptomatic anemia/thrombocytopenia. All blood products should be irradiated. Avoid G-CSF. Continue broad-spectrum antibiotics. Await results of C. difficile testing, and adjust his regimen appropriately. If C. difficile test is negative, he could take Imodium or Lomotil to control his frequent bowel movements. Anticipate repeat bone marrow studies as his hematologic parameters begin to increase in the next 7-10 days." PICC line finding: notified by infusion services that the patient's PICC line is out by 4 cm now at the brachiocephalic junction. Left a message for oncology. The patient's oncologist is aware of the conversation he had with the patient. Newly found bilateral epididymitis on US testicle, on 10/28, unclear clinical significance of this, possible leukemic infiltration, stable, unlikely new source of infection and patient also covered well with abx. -- Negative for acute infectious findings Disposition: He will be monitored until his cell counts normalize in the hospital for oncology diet:regular as tolerate dvt ppx:SCD Full Code VTE Prophylaxis: Other (not needed platelets are 7) VTE Mechanical Devices: Intermittant Pneumatic CD Resuscitation Status: CPR: Attempt Resuscitation Vlad Renner MD Nov 15, 2016 17:32
[2016-11-15] MEDS: LORazepam 1 mg Tablet PO PRN (20:51)
[2016-11-16 05:51] VITALS: BP 133/71; PULSE 86; RESP 16; O2SAT 96
[2016-11-16 05:57] LABS: Mean Corpuscular Hemoglobin 28.1 pg (27.0-35.0); Mean Corpuscular Volume 83.2 fL (81-100); Platelet Count 43 bil/L (150-400)
--- NOTE | 2016-11-16 07:19 | PROG NOTE ---
[address] [address] PROGRESS NOTE PATIENT: JEFF AMEZCUA : 1945 MR#: [id number] ADMIT: 10/24/2016 JOB ID: [id number] DATE: 11/16/2016 SUBJECTIVE: The patient is a 71-year-old gentleman with acute myelogenous leukemia, status post re-induction chemotherapy. Hematologic parameters continue to show pancytopenia, and he remains transfusion-dependent. He had no significant fevers overnight. Cultures are negative to date during the current hospitalization, but note that he previously had blood cultures positive for Pseudomonas aeruginosa and urine for Enterococcal faecalis during a prior admission. Stools have slowed. In fact, he has not had a bowel movement in about three days. Testing for C. difficile was not obtained. He slept well last night and is doing well today. He received 2 units of platelets yesterday. No bleeding or atypical bruising. OBJECTIVE: Vitals: T 36.8, P 86, P 68, R 16, BP 133/71. HEENT: Conjunctivae slightly pale. Mucous membranes moist. No oral lesions. Nodes: No adenopathy in the neck, axilla, or groin. Chest: Clear. Cardiac exam: Regular rate and rhythm. Abdomen: Soft and nontender. Normoactive bowel tones. Extremities: Trace pedal edema. 2+ distal pulses. No calf tenderness. LABORATORIES: WBC 0.1, hemoglobin 9.2, hematocrit 27.2%, platelets 43,000. ASSESSMENT AND PLAN: Acute myelogenous leukemia, day 17 status post re-induction chemotherapy: Clinically stable. Although pancytopenic, there are no indications for transfusion support today. No further fevers over night. Continue to monitor closely and adjust antibiotics if necessary. He is currently on Levaquin 750 mg by mouth daily and posaconazole 200 mg by mouth three times daily. When white blood cell count and other hematologic parameters begin to improve, anticipate repeat bone marrow studies to assess remission status.
[2016-11-16] MEDS: levoFLOXacin 750 mg Tablet PO SCH (08:04)
[2016-11-16] MEDS: Pantoprazole 20 mg ER24 Tablet PO SCH (08:04)
[2016-11-16] MEDS: POSACONAZOLE PO SCH ×3 (08:04→18:25)
[2016-11-16] MEDS: Nystatin 100,000 Unit/mL 5 mL Suspension PO SCH ×4 (08:04→22:16)
[2016-11-16] MEDS: Diltiazem CD 180 mg ER24 Capsule PO SCH (08:04)
[2016-11-16 12:00] VITALS: BP 130/85
[2016-11-16] MEDS: Mupirocin 2% 22 Gm Ointment TOPICAL SCH ×2 (12:41→22:02)
--- NOTE | 2016-11-16 15:45 | PCM.PNMED ---
Subjective Date of Service Nov 16, 2016 Subjective Healing all right, no fever overnight. No chest pain no dyspnea no nausea or vomiting or diarrhea Exam Vital Signs Vital Sign - Last Date Time Temp Pulse Resp B/P Pulse Ox O2 Delivery O2 Flow Rate FiO2 11/16/16 12:00 130/85 11/16/16 05:51 36.8 86 16 96 Room Air Intake and Output 11/15/16 11/15/16 11/16/16 Cumulative From/Thru 15:00 23:00 07:00 10/24/16 06:05 - 11/16/16 05:50 Intake Total 450 ml 2275 ml 1200 ml 69919 ml Output Total 3075 ml 1300 ml 13308 ml Balance 450 ml -800 ml -100 ml 880 ml Intake Oral 2275 ml 1200 ml 47650 ml IV Total 98161 ml Packed Cells 1800 ml Platelets 450 ml 2490 ml Output Urine Total 3075 ml 1300 ml 07127 ml # Voids 16 # Bowel Movements 0 0 21 Exam Gen.- A+ O 3 no apparent distress. Thin male sitting up in chair Eyes- open conjunctiva clear, pupils equal nonicteric ENT- ears normal, nose normal Neck- supple/trach midline CVS-normal rate Lungs-normal rate and effort no accessory muscle GI-abdomen flat Musc- moving 4 no obvious deformity Neuro- cranial nerves II through XII intact to gross examination, nonfocal Skin- warm and dry, no rashes/lesions/wounds noted small petechia noted on dorsal aspect of feet somewhat stable/improved versus 11/15 Psych- pleasant and appropriate, Lab and Diagnostics Result Diagram: 11/16/16 0530 11/15/16 0500 X-Rays, CTs and MRIs PROCEDURE: X-RAY CHEST ONE VIEW, PORTABLE ([id number]) INDICATIONS: 71 year-old male with neutropenic fevers. TECHNIQUE: One view of the chest was acquired. COMPARISON: None. FINDINGS: Surgical changes and devices: Right PICC is present, with tip in the upper superior vena cava. Lungs and pleura: No pleural effusions or pneumothorax. Lungs are clear. Mediastinum: Mediastinal contours appear normal. Heart size is normal. There is aortic atherosclerosis. Bones and chest wall: No suspicious bony lesions. Overlying soft tissues appear unremarkable. IMPRESSION: No acute cardiopulmonary disease. Dictated by: Shawn Marcial M.D. on 10/24/2016 at 7:29 Approved by: Shawn Marcial M.D. on 10/24/2016 at 7:29 Additional Diagnostics PROCEDURE: US SOFT TISSUE OF HEAD OR NECK SONOGRAM INDICATIONS: 71 year-old male with neutropenic fevers and neck swelling. Assess for abscess. TECHNIQUE: Real-time scanning was performed of the neck region of interest, with image documentation. COMPARISON: None. FINDINGS: In the region of interest, no fluid collections identified to suggest abscess. Normal-appearing sternocleidomastoid muscles are identified. No enlarged lymph nodes identified. IMPRESSION: No sonographic evidence for neck abscess. Dictated by: Shawn Marcial M.D. on 10/24/2016 at 8:02 Approved by: Shawn Marcial M.D. on 10/24/2016 at 8:03 Assessment & Plan 71 yo M w/ recent hospitalization 10/08-10/19 with newly diagnosed AML s/p induction ctx, pseudomonas bacteremia p/w fever with neck started 2days ago. 11/15 meeting medically complex patient who is currently stable #Neutropenic fever, recent pseudomonal bacteremia- Levaquin/posaconazole 11/15- per ID thank you Dr. Hackett following -Blood cultures negative to date - MRSA negative -Cryptococcus antigen negative -Galactomannan Ag, and fungal antibodies negative so far. Last set of lab results showed normal Galactomannan Ag, fungal antibodies are negative -Consider checking epididymitis on a periodic basis: Rechecked this on 11/13/16 and he did not appear to have any erythema, swelling, tenderness Chronic hyponatremia-possibly secondary to hydrochlorothiazide, POA, - Continue to monitor every few days Hypertension -Patient's hydralazine was reduced to 10 mg 3 times a day and 10 mg daily at bedtime due to drop in blood pressure in a.m. -Continue diltiazem 180 mg daily # Diarrhea onset 11/12/16: Appears to have resolved after 2 days. Stool culture ordered is still outstanding # Macular diffuse rash over chest and abdomen onset 11/14/16: Much improved 11/15 -- This appears to be related to his recent diarrhea, likely due to viral infection. Could be due to drug rash per Dr. Hackett, he asked for meropenem to be discontinued as this may have caused the rash. -- Started Levaquin by mouth [address] Hackett. Chronic anemia, POA -Patient received 2 units of PRBC on 11/08/16 Thrombocytopenia, POA - he was transfused several units of platelets -- Continue to monitor with daily labs AML with severe neutropenia, dxed in 10/12/2016, CBC on 10/29 showed concerning 20 % blast, he has completed induction chemo that was done for 7 days, started on . -Per oncology thank you Dr. Ferreira, I believe bone marrow is planned for Wednesday 11/22 PICC line finding: notified by infusion services that the patient's PICC line is out by 4 cm now at the brachiocephalic junction. Left a message for oncology. The patient's oncologist is aware of the conversation he had with the patient. Newly found bilateral epididymitis on US testicle, on 10/28, unclear clinical significance of this, possible leukemic infiltration, stable, unlikely new source of infection and patient also covered well with abx. -- Negative for acute infectious findings Disposition: He will be monitored until his cell counts normalize in the hospital for oncology diet:regular as tolerate dvt ppx:SCD Full Code VTE Prophylaxis: Other (not needed platelets are 7) VTE Mechanical Devices: Intermittant Pneumatic CD Resuscitation Status: CPR: Attempt Resuscitation Vlad Renner MD Nov 16, 2016 15:45
--- NOTE | 2016-11-16 16:36 | PROG NOTE ---
[address] [address] PROGRESS NOTE PATIENT: JEFF AMEZCUA : 1945 MR#: [id number] ADMIT: 10/24/2016 JOB ID: [id number] DATE: 11/16/2016 INFECTIOUS DISEASE FOLLOW UP NOTE: REASON FOR FOLLOWUP: Prolonged neutropenia with recent fevers and prior Pseudomonas sepsis. INTERVAL HISTORY: Overnight, the patient has felt quite stable. He has had no fevers, chills or sweats. No visual complaint. No sores in the mouth. No trouble swallowing. No cough, shortness of breath or chest pain. The skin lesions present over the xiphoid area of his anterior chest have not changed and they remain nonpainful and nonpruritic. He has noticed the development of a nodule at around the PICC exit site, but this is nontender and has not given him any problems. He has had no dysuria. He did have a large bowel movement today which was mostly solid and no pain with defecation. PHYSICAL EXAMINATION: Reveals an afebrile gentleman, temperature 36.8, pulse 86, respiratory rate 16, blood pressure 130/85. He is in no acute distress. Head is benign appearing. His oral cavity is negative. His neck is supple. The anterior lower neck cellulitis seen previously has resolved. Lungs are clear. Cardiac tones with a subtle 1/6 murmur as heard before intermittently. The area around the xiphoid still has 10-15 of the mckinley-colored papular lesions which are nontender and nonpruritic and non excoriated. Abdomen is benign. He has no Gill catheter. His PICC has a translucent covering over it and there is a minimal amount of erythema right at the tip of the PICC which is probably no more than 5 mm across. This is not tender nor is it purulent. LABORATORIES: Include white count stuck at 100, hematocrit 27, platelets 43,000. Creatinine 0.53, albumin 2.9. Repeat Fungitell and galactomannan ordered yesterday still pending. Fungal blood cultures pending and those were ordered yesterday afternoon and negative at 24 hours basically. MRSA screen negative. No recent imaging. IMPRESSION: This patient continues to be stable despite an extraordinary period of neutropenia. We switched from meropenem to levo over the weekend out of concern for a possible drug rash, but I see no evidence of the rash present around the xiphoid area in any way constitutes a drug reaction. That said, the switch is probably reasonable as he has not had any fevers except a single spike to 38.3 in many days. I see no evidence for a pulmonary or a GI infection. The mild erythematous nodule around the PICC line will need to be watched closely. If we lost the PICC line at this point, it would not be a disaster because we are giving only oral antibiotics with levo and posaconazole and the patient could presumably receive whatever platelets or red cell transfusion he needs through peripheral IVs until hopefully we get the return of his bone marrow in the next week or so. RECOMMENDATIONS: 1. No change the antibiotics today. 2. Will continue to closely watch the PICC exit site. 3. Will follow this patient very closely with you.
[2016-11-16 16:50] VITALS: BP 155/77; PULSE 80
[2016-11-16 20:13] VITALS: BP 145/76; PULSE 78; RESP 18; O2SAT 98
[2016-11-16] MEDS: LORazepam 1 mg Tablet PO PRN (22:14)
[2016-11-17 04:24] VITALS: BP 140/71; PULSE 65; RESP 16; O2SAT 96
[2016-11-17 07:29] LABS: Mean Corpuscular Hemoglobin 28.4 pg (27.0-35.0); Mean Corpuscular Volume 82.3 fL (81-100)
[2016-11-17 07:55] LABS: Platelet Count 27 bil/L (150-400)
--- NOTE | 2016-11-17 08:06 | PROG NOTE ---
[address] [address] PROGRESS NOTE PATIENT: JEFF AMEZCUA : 1945 MR#: [id number] ADMIT: 10/24/2016 JOB ID: [id number] DATE: 11/17/2016 SUBJECTIVE: The patient is a 71-year-old gentleman with acute myelogenous leukemia, status post re-induction chemotherapy. He is doing fine this morning. No acute complaints. No fevers overnight. No new rashes. No bleeding or atypical bruising. OBJECTIVE: Vitals: T 37.1, P 65, R 16, BP 140/71, O2 saturation 96% on room air. HEENT: Conjunctivae slightly pale. Mucous membranes moist. Chest: Clear. Cardiac exam: Regular rate and rhythm. Abdomen: Benign. Extremities: No edema. 2+ distal pulses. LABORATORIES: WBC 0.1, hemoglobin 9.0, hematocrit 26.1, platelets 27K. Sodium 128, potassium 3.4, BUN 12, creatinine 0.59, glucose 101. AST 19, ALT 45, alkaline phosphatase 142. ASSESSMENT AND PLAN: Acute myelogenous leukemia, day 18 status post re-induction chemotherapy: Clinically stable. Based on current hematologic parameters, no requirement for transfusion support today. All future blood products should be irradiated. He has been neutropenic. Continue Levaquin 750 mg by mouth daily and posaconazole 200 mg by mouth three times daily. When hematologic parameters begin to improve, anticipate repeat bone marrow studies. MTDD
[2016-11-17 08:51] VITALS: BP 137/79; PULSE 75; RESP 16; O2SAT 98
[2016-11-17] MEDS: Diltiazem CD 180 mg ER24 Capsule PO SCH (09:25)
[2016-11-17] MEDS: Nystatin 100,000 Unit/mL 5 mL Suspension PO SCH ×4 (09:26→20:25)
[2016-11-17] MEDS: Pantoprazole 20 mg ER24 Tablet PO SCH (09:26)
[2016-11-17] MEDS: levoFLOXacin 750 mg Tablet PO SCH (09:26)
[2016-11-17] MEDS: POSACONAZOLE PO SCH ×3 (09:27→17:31)
[2016-11-17] MEDS: Mupirocin 2% 22 Gm Ointment TOPICAL SCH ×2 (09:28→20:25)
--- NOTE | 2016-11-17 10:56 | PROG NOTE ---
[address] [address] PROGRESS NOTE PATIENT: JEFF AMEZCUA : 1945 MR#: [id number] ADMIT: 10/24/2016 JOB ID: [id number] DATE: 11/17/2016 INFECTIOUS DISEASE FOLLOW UP NOTE: REASON FOR FOLLOW UP: Prolonged neutropenia with recent Pseudomonas sepsis. INTERVAL HISTORY: The patient has felt relatively well today. He continues to be discouraged by the lack of white cell return. He has had no fevers, chills or sweats. No significant cough, shortness of breath or chest pain. No nausea, vomiting, diarrhea or dysuria. He has had a few loose stools which tend to occur about every other day but would not meet the classic definition of diarrhea. There is still a small erythematous area at the exit site of his PICC which the patient is concerned about but which is painless. He still also has a small lesion on his left dorsal foot which he is watching closely. PHYSICAL EXAMINATION: Reveals a consistently afebrile gentleman, temperature 37.1, pulse 75, respiratory rate 16, blood pressure 137/79, saturating well on room air. He looks a bit tired but otherwise well. Eyes without conjunctivitis. Oral cavity without thrush. Dentition appears fine. In the anterior neck, the cellulitis has resolved. Lungs quite clear posteriorly. Cardiac tones: 2/6 murmur along the left lower sternal border as before. Abdomen: Soft and nontender. The PICC line has a small about 7 mm erythematous nodule at the entrance site into the skin. There is also some diffuse excoriation underneath the translucent dressing of the PICC consistent with contact dermatitis. The left foot has a 1 cm erythematous macular area at the site of the prior abrasion. There is no sign of spreading erythema or tenderness there, certainly no purulence. LABORATORIES: Include white count stable at 100, platelets 27,000 today. Creatinine stable 0.59. LFTs basically normal though the ALT has climbed recently to 45. Albumin 2.9. Urinalysis without white cells. Crypto antigen negative. Recent Fungitell and galactomannan are negative with a repeat pending from the . Micro studies include negative fungal blood cultures from the . There is no recent imaging. IMPRESSION: This patient continues to be free of infection but I continue to watch with interest the erythematous bump at the entrance site of the right upper extremity PICC as well as a lesion on his left dorsal foot. I am also a bit concerned about his loose stools but this sounds unlike an inflammatory or invasive diarrhea as he is having a large loose bowel movement or to every second or third day, but otherwise no abdominal symptoms whatsoever. RECOMMENDATIONS: 1. Will continue levo as well as posaconazole. 2. Stool PCR panel will be ordered. 3. If there are more issues with respect to his PICC line such as more inflammation or erythema or development of tenderness, I would simply pull the PICC line and manage this patient. for the remainder of his neutropenia, which hopefully will not be too long, with peripheral IVs.
--- NOTE | 2016-11-17 13:51 | PCM.PNMED ---
Subjective Date of Service Nov 17, 2016 Subjective Some diarrhea was reported by staff but not by patient. Patient denies any symptoms no chest pain, no dyspnea, no nausea and no not no vomiting Exam Vital Signs Vital Sign - Last Date Time Temp Pulse Resp B/P Pulse Ox O2 Delivery O2 Flow Rate FiO2 11/17/16 08:51 37.1 75 16 137/79 98 Room Air Intake and Output 11/16/16 11/16/16 11/17/16 Cumulative From/Thru 15:00 23:00 07:00 10/24/16 06:05 - 11/17/16 06:19 Intake Total 120 ml 1104 ml 500 ml 38227 ml Output Total 850 ml 1300 ml 47331 ml Balance 120 ml 254 ml -800 ml 454 ml Intake Oral 1000 ml 400 ml 05858 ml IV Total 120 ml 104 ml 100 ml 41463 ml Packed Cells 1800 ml Platelets 2490 ml Output Urine Total 850 ml 1300 ml 42784 ml # Voids 16 # Bowel Movements 3 0 24 Exam Gen.- A+ O 3 no apparent distress. Thin male sitting up in chair Eyes- open conjunctiva clear, pupils equal nonicteric ENT- ears normal, nose normal Neck- supple/trach midline CVS-rrr (-) murmur/gallop Lungs-normal rate and effort no accessory muscle, CTA no wheezes or rhonchi GI-nabs/nt Musc- moving 4 no obvious deformity Neuro- cranial nerves II through XII intact to gross examination, nonfocal Skin- warm and dry, no rashes/lesions/wounds noted small petechia noted on dorsal aspect of feet somewhat stable/improving/resolving Psych- pleasant and appropriate, Lab and Diagnostics Result Diagram: 11/17/1652911/17/16 0530 X-Rays, CTs and MRIs PROCEDURE: X-RAY CHEST ONE VIEW, PORTABLE ([id number]) INDICATIONS: 71 year-old male with neutropenic fevers. TECHNIQUE: One view of the chest was acquired. COMPARISON: None. FINDINGS: Surgical changes and devices: Right PICC is present, with tip in the upper superior vena cava. Lungs and pleura: No pleural effusions or pneumothorax. Lungs are clear. Mediastinum: Mediastinal contours appear normal. Heart size is normal. There is aortic atherosclerosis. Bones and chest wall: No suspicious bony lesions. Overlying soft tissues appear unremarkable. IMPRESSION: No acute cardiopulmonary disease. Dictated by: Shawn Marcial M.D. on 10/24/2016 at 7:29 Approved by: Shawn Marcial M.D. on 10/24/2016 at 7:29 Additional Diagnostics PROCEDURE: US SOFT TISSUE OF HEAD OR NECK SONOGRAM INDICATIONS: 71 year-old male with neutropenic fevers and neck swelling. Assess for abscess. TECHNIQUE: Real-time scanning was performed of the neck region of interest, with image documentation. COMPARISON: None. FINDINGS: In the region of interest, no fluid collections identified to suggest abscess. Normal-appearing sternocleidomastoid muscles are identified. No enlarged lymph nodes identified. IMPRESSION: No sonographic evidence for neck abscess. Dictated by: Shawn Marcial M.D. on 10/24/2016 at 8:02 Approved by: Shawn Marcial M.D. on 10/24/2016 at 8:03 Assessment & Plan 71 yo M w/ recent hospitalization 10/08-10/19 with newly diagnosed AML s/p induction ctx, pseudomonas bacteremia p/w fever with neck started 2days ago. 11/15 meeting medically complex patient who is currently stable 11/17 patient continues to be stable. Platelets trickled down, some diarrhea and a little bit frustrated that C. difficile has not been obtained properly.. Continuing to wait for marrow recovery. Repeat bone marrow per heme/ on, antibiotics per infectious disease thank you. #Neutropenic fever, recent pseudomonal bacteremia- Levaquin/posaconazole 11/15- per ID thank you Dr. Hackett following -Blood cultures negative to date - MRSA negative -Cryptococcus antigen negative -Galactomannan Ag, and fungal antibodies negative so far. Last set of lab results showed normal Galactomannan Ag, fungal antibodies are negative -Consider checking epididymitis on a periodic basis: Rechecked this on 11/13/16 and he did not appear to have any erythema, swelling, tenderness Thrombocytopenia, POA - he was transfused several units of platelets -- Continue to monitor with daily labs Chronic anemia, POA -Patient received 2 units of PRBC on 11/08/16 -Continues to trickled down as we await marrow recovery Chronic hyponatremia-possibly secondary to hydrochlorothiazide, POA, - Continue to monitor every few days Hypertension -Patient's hydralazine was reduced to 10 mg 3 times a day and 10 mg daily at bedtime due to drop in blood pressure in a.m. -Continue diltiazem 180 mg daily # Diarrhea onset 11/12/16: Appears to have resolved after 2 days. Stool culture ordered is still outstanding # Macular diffuse rash over chest and abdomen onset 11/14/16: Much improved 11/15 -- This appears to be related to his recent diarrhea, likely due to viral infection. Could be due to drug rash per Dr. Hackett, he asked for meropenem to be discontinued as this may have caused the rash. -- Started Levaquin by mouth [address] Hackett. 11/15- AML with severe neutropenia, dxed in 10/12/2016, CBC on 10/29 showed concerning 20 % blast, he has completed induction chemo that was done for 7 days, started on . -Per oncology thank you Dr. Ferreira, I believe bone marrow is planned for Wednesday 11/22 PICC line finding: notified by infusion services that the patient's PICC line is out by 4 cm now at the brachiocephalic junction. Left a message for oncology. The patient's oncologist is aware of the conversation he had with the patient. Newly found bilateral epididymitis on US testicle, on 10/28, unclear clinical significance of this, possible leukemic infiltration, stable, unlikely new source of infection and patient also covered well with abx. -- Negative for acute infectious findings Disposition: He will be monitored until his cell counts normalize in the hospital for oncology diet:regular as tolerate dvt ppx:SCD Full Code VTE Prophylaxis: Other (not needed platelets are 7) VTE Mechanical Devices: Intermittant Pneumatic CD Resuscitation Status: CPR: Attempt Resuscitation Vlad Renner MD Nov 17, 2016 13:51
[2016-11-17 13:53] VITALS: BP 124/69; PULSE 76; RESP 16; O2SAT 97
[2016-11-17] MEDS: Alum-Mag Hydrox-Simeth 30 mL Suspension PO PRN ×2 (14:08→20:34)
[2016-11-17 16:22] VITALS: BP 131/71; PULSE 81; RESP 18; O2SAT 99
[2016-11-17] MEDS: LORazepam 1 mg Tablet PO PRN (20:25)
[2016-11-17 20:45] VITALS: BP 146/75; PULSE 82; RESP 16; O2SAT 99
[2016-11-18 05:28] VITALS: BP 141/69; PULSE 78; RESP 16; O2SAT 97
[2016-11-18 06:05] LABS: Mean Corpuscular Hemoglobin 28.6 pg (27.0-35.0); Mean Corpuscular Volume 82.3 fL (81-100)
[2016-11-18 06:21] LABS: Platelet Count 20 bil/L (150-400)
[2016-11-18 08:49] VITALS: BP 121/70; PULSE 85; RESP 16; O2SAT 98
[2016-11-18] MEDS: POSACONAZOLE PO SCH ×3 (08:57→17:09)
[2016-11-18] MEDS: Diltiazem CD 180 mg ER24 Capsule PO SCH (09:06)
[2016-11-18] MEDS: levoFLOXacin 750 mg Tablet PO SCH (09:06)
[2016-11-18] MEDS: Nystatin 100,000 Unit/mL 5 mL Suspension PO SCH ×4 (09:06→21:41)
[2016-11-18] MEDS: Pantoprazole 20 mg ER24 Tablet PO SCH (11:00)
[2016-11-18] MEDS: Mupirocin 2% 22 Gm Ointment TOPICAL SCH ×2 (11:01→21:40)
--- NOTE | 2016-11-18 12:45 | PROG NOTE ---
[address] [address] PROGRESS NOTE PATIENT: JEFF AMEZCUA : 1945 MR#: [id number] ADMIT: 10/24/2016 JOB ID: [id number] DATE: 11/18/2016 REASON FOR FOLLOWUP: Prolonged neutropenia with Pseudomonas sepsis and cellulitis in the past. INTERVAL HISTORY: Overnight, the patient has felt well. No fevers. No chills. No sweats. No cough, shortness of breath, chest pain, issues with the PICC line, nausea, vomiting, diarrhea, or dysuria. He had a formed stool today which is the first one in several days. PHYSICAL EXAMINATION: Reveals a comfortable gentleman. His temperatures have been a bit higher though. Temperature 37.8 last night and 37.7 this morning. Pulse 85, respiratory rate 16, blood pressure 121/70. He is comfortable, alert, and saturating well on room air. Examination of the oral cavity is entirely unremarkable. His mental status is normal. His neck cellulitis is completely resolved. His right PICC line was carefully examined. There is about a 7 mm erythematous nodule or bump at the entrance site of the PICC. It otherwise looks benign. There is also some diffuse irritation under the translucent dressing over the PICC. The patient's lungs are clear. Cardiac tones with 2/6 murmur heard best along the right upper sternal border. The abdomen is entirely soft and nontender. There is no skin rash except for scattered petechia over the extremities. LABORATORIES: Include a white count still 100, platelet count 20,000, creatinine 0.59. ALT slightly up to 45. Albumin 2.9. Urinalysis without white cells. Recent galactomannan and Fungitell done on the have come back, and they are both zero. Stool C. diff for PCR was done today and was negative. Fungal blood cultures from three days ago are pending and negative. All other blood cultures negative from this admission, though during his prior admission with febrile neutropenia, his blood cultures grew Pseudomonas. No recent radiographs. IMPRESSION: The patient continues to be profoundly neutropenic, now about 12 days status post last of his re-induction chemotherapy, and we await anxiously the return of white cells. My concerns are the little bump at the peripherally inserted central catheter line, as well as a small erythematous lesion on the dorsal foot. His loose stools seemed to resolved, and we did finally get a Clostridium difficile which was negative. At this point, I see no reason to alter his antibiotics, but I am a bit concerned about the increase in his temperatures, though he has still not had any over 100.4. RECOMMENDATIONS: 1. Will continue levo plus posaconazole prophylaxis. 2. Will continue to closely watch his PICC line, and if there are any troubles, it can simply be pulled at this juncture. 3. Also continue to closely watch his left dorsal foot lesion, as well as, of coarse, his oral cavity, lungs, and abdomen.
[2016-11-18 12:54] VITALS: BP 135/70; PULSE 82; O2SAT 98
--- NOTE | 2016-11-18 13:11 | PROG NOTE ---
[address] [address] PROGRESS NOTE PATIENT: JEFF AMEZCUA : 1945 MR#: [id number] ADMIT: 10/24/2016 JOB ID: [id number] DATE: 11/18/2016 SUBJECTIVE: The patient is a 71-year-old gentleman with acute myelogenous leukemia, status post re-induction chemotherapy. It has been 19 days since he started re-induction chemotherapy. He had low-grade fevers on a couple occasions overnight, controlled with Tylenol. He did not have any associated chills or shortness of breath. He feels fine. He notes a skin tear on the right arm associated with his PICC line dressing, which was tightly stretched. No bleeding or atypical bruising. No new rashes. OBJECTIVE: Vitals: T-max 37.8, P 78, R 16, BP 141/69. O2 saturation 97% on room air. HEENT: Conjunctivae slightly pale. Mucous membranes moist. No oral lesions. Nodes: No adenopathy in the neck, axilla, or groin. Chest: Clear throughout. No wheezes. Cardiac exam: Regular rate and rhythm with normal S1, S2. Abdomen: Soft, nontender. Normoactive bowel tones. Extremities: No edema. 2+ distal pulses. No calf tenderness. He does have a slight skin tear associated with the dressing over his right arm PICC line site. LABORATORIES: WBC 0.1, hemoglobin 8.9, hematocrit 25.6%, MCV 82, platelets 20,000. ASSESSMENT AND PLAN: Acute myelogenous leukemia, day 19 status post re-induction chemotherapy: Clinically stable. He is borderline for transfusion support, but without any acute shortness of breath or bleeding, we will not transfuse today. All future blood products should be irradiated. He remains profoundly neutropenic. Continue Levaquin 750 mg by mouth daily. I would have low threshold for expanding his antibiotic coverage if he continues to have low-grade or more significant fevers. Cultures during the current hospitalization have been negative, although he had previous low blood culture positive for Pseudomonas aeruginosa and urine for enterococcus faecalis. Current Clostridium difficile testing from stool was negative. Anticipate recovery of his immune system in the next seven days or so. At that time, anticipate repeat bone marrow studies to confirm remission status.
--- NOTE | 2016-11-18 13:19 | PCM.PNMED ---
Subjective Date of Service Nov 18, 2016 Subjective No complaints of chest pain, dyspnea, nausea or vomiting. He has not had an episode of loose stool/diarrhea for over 24 hours Exam Vital Signs Vital Sign - Last Date Time Temp Pulse Resp B/P Pulse Ox O2 Delivery O2 Flow Rate FiO2 11/18/16 12:54 82 135/70 98 11/18/16 12:49 37.2 11/18/16 08:49 16 Room Air Intake and Output 11/17/16 11/17/16 11/18/16 Cumulative From/Thru 15:00 23:00 07:00 10/24/16 06:05 - 11/18/16 05:32 Intake Total 1216 ml 200 ml 59795 ml Output Total 1000 ml 2275 ml 08970 ml Balance 216 ml -2075 ml -1405 ml Intake Oral 1040 ml 200 ml 18691 ml IV Total 176 ml 47032 ml Packed Cells 1800 ml Platelets 2490 ml Output Urine Total 1000 ml 2275 ml 14850 ml # Voids 16 # Bowel Movements 24 Exam Gen.- A+ O 3 no apparent distress. Thin male sitting up in chair Eyes- open conjunctiva clear, pupils equal nonicteric ENT- ears normal, nose normal Neck- supple/trach midline CVS- Normal rate Lungs-normal rate and effort no accessory muscle, GI-nabs/nt Musc- moving 4 no obvious deformity Neuro- cranial nerves II through XII intact to gross examination, nonfocal Skin- warm and dry, no rashes/lesions/wounds noted Psych- pleasant and appropriate, Lab and Diagnostics Result Diagram: 11/18/16 0556 11/17/16 0530 X-Rays, CTs and MRIs PROCEDURE: X-RAY CHEST ONE VIEW, PORTABLE ([id number]) INDICATIONS: 71 year-old male with neutropenic fevers. TECHNIQUE: One view of the chest was acquired. COMPARISON: None. FINDINGS: Surgical changes and devices: Right PICC is present, with tip in the upper superior vena cava. Lungs and pleura: No pleural effusions or pneumothorax. Lungs are clear. Mediastinum: Mediastinal contours appear normal. Heart size is normal. There is aortic atherosclerosis. Bones and chest wall: No suspicious bony lesions. Overlying soft tissues appear unremarkable. IMPRESSION: No acute cardiopulmonary disease. Dictated by: Shawn Marcial M.D. on 10/24/2016 at 7:29 Approved by: Shawn Marcial M.D. on 10/24/2016 at 7:29 Additional Diagnostics PROCEDURE: US SOFT TISSUE OF HEAD OR NECK SONOGRAM INDICATIONS: 71 year-old male with neutropenic fevers and neck swelling. Assess for abscess. TECHNIQUE: Real-time scanning was performed of the neck region of interest, with image documentation. COMPARISON: None. FINDINGS: In the region of interest, no fluid collections identified to suggest abscess. Normal-appearing sternocleidomastoid muscles are identified. No enlarged lymph nodes identified. IMPRESSION: No sonographic evidence for neck abscess. Dictated by: Shawn Marcial M.D. on 10/24/2016 at 8:02 Approved by: Shawn Marcial M.D. on 10/24/2016 at 8:03 Assessment & Plan 71 yo M w/ recent hospitalization 10/08-10/19 with newly diagnosed AML s/p induction ctx, pseudomonas bacteremia p/w fever with neck started 2days ago. 11/15 meeting medically complex patient who is currently stable 11/17 patient continues to be stable. Platelets trickled down, some diarrhea and a little bit frustrated that C. difficile has not been obtained properly.. Continuing to wait for marrow recovery. Repeat bone marrow per heme/ on, antibiotics per infectious disease thank you. 11/18 low-grade fever once overnight, no other symptoms, heme/on low tolerance to expand antibiotic prophylaxis, ID following major concern PICC line site, no action at present. Continuing to await bone marrow recovery. #Neutropenic fever, recent pseudomonal bacteremia- Levaquin/posaconazole 11/15- per ID thank you Dr. Hackett following -Blood cultures negative to date - MRSA negative -Cryptococcus antigen negative -Galactomannan Ag, and fungal antibodies negative so far. Last set of lab results showed normal Galactomannan Ag, fungal antibodies are negative -Consider checking epididymitis on a periodic basis: Rechecked this on 11/13/16 and he did not appear to have any erythema, swelling, tenderness Thrombocytopenia, POA - he was transfused several units of platelets -- Continue to monitor with daily labs Chronic anemia, POA -Patient received 2 units of PRBC on 11/08/16 -Continues to trickled down as we await marrow recovery Chronic hyponatremia-possibly secondary to hydrochlorothiazide, POA, - Continue to monitor every few days Hypertension -Patient's hydralazine was reduced to 10 mg 3 times a day and 10 mg daily at bedtime due to drop in blood pressure in a.m. -Continue diltiazem 180 mg daily # Diarrhea onset 11/12/16: Appears to have resolved after 2 days. Stool culture ordered is still outstanding # Macular diffuse rash over chest and abdomen onset 11/14/16: Much improved 11/15 -- This appears to be related to his recent diarrhea, likely due to viral infection. Could be due to drug rash per Dr. Hackett, he asked for meropenem to be discontinued as this may have caused the rash. -- Started Levaquin by mouth [address] Hackett. 11/15- AML with severe neutropenia, dxed in 10/12/2016, CBC on 10/29 showed concerning 20 % blast, he has completed induction chemo that was done for 7 days, started on . -Per oncology thank you Dr. Ferreira, I believe bone marrow is planned for Wednesday 11/22 PICC line finding: notified by infusion services that the patient's PICC line is out by 4 cm now at the brachiocephalic junction. Left a message for oncology. The patient's oncologist is aware of the conversation he had with the patient. Newly found bilateral epididymitis on US testicle, on 10/28, unclear clinical significance of this, possible leukemic infiltration, stable, unlikely new source of infection and patient also covered well with abx. -- Negative for acute infectious findings Disposition: He will be monitored until his cell counts normalize in the hospital for oncology diet:regular as tolerate dvt ppx:SCD Full Code VTE Prophylaxis: Other (not needed platelets are 7) VTE Mechanical Devices: Intermittant Pneumatic CD Resuscitation Status: CPR: Attempt Resuscitation Vlad Renner MD Nov 18, 2016 13:19
[2016-11-18 16:52] VITALS: BP 133/77; PULSE 77; RESP 16; O2SAT 99
[2016-11-18 20:30] VITALS: BP 147/80; PULSE 84; RESP 16; O2SAT 99
[2016-11-18] MEDS: LORazepam 1 mg Tablet PO PRN (21:42)
[2016-11-19] VITALS (11 sets, daily range): BP systolic 116–154; BP diastolic 63–77; PULSE 68–82; RESP 16–18; O2SAT 97–100
[2016-11-19] MEDS: Pantoprazole 20 mg ER24 Tablet PO SCH (06:11)
[2016-11-19] MEDS: levoFLOXacin 750 mg Tablet PO SCH ×2 (06:11→07:58)
[2016-11-19 06:45] LABS: Mean Corpuscular Hemoglobin 28.8 pg (27.0-35.0); Mean Corpuscular Volume 82.5 fL (81-100)
[2016-11-19 06:50] LABS: Platelet Count 13 bil/L (150-400)
[2016-11-19] MEDS: POSACONAZOLE PO SCH ×3 (07:58→16:49)
[2016-11-19] MEDS: Nystatin 100,000 Unit/mL 5 mL Suspension PO SCH ×4 (07:58→21:27)
[2016-11-19] MEDS: Diltiazem CD 180 mg ER24 Capsule PO SCH (07:58)
[2016-11-19] MEDS: Mupirocin 2% 22 Gm Ointment TOPICAL SCH ×2 (07:58→21:27)
[2016-11-19] MEDS: Multivit-Miner-Folic Acid-Iron Tablet PO SCH ×2 (10:25→12:35)
--- NOTE | 2016-11-19 10:40 | PROG NOTE ---
[address] [address] PROGRESS NOTE PATIENT: JEFF AMEZCUA : 1945 MR#: [id number] ADMIT: 10/24/2016 JOB ID: [id number] DATE: 11/19/2016 INFECTIOUS DISEASE FOLLOW UP NOTE: REASON FOR FOLLOW UP: Prolonged neutropenia with history of Pseudomonas sepsis. INTERVAL HISTORY: Today, the patient just feels more tired and perhaps a bit more discouraged. He is not having any overt fevers, chills or sweats. No significant headache, sinus complaints or sore throat. No cough, nausea, vomiting or diarrhea. He notes his stools are now well-formed and without abnormality. His PICC line continues to be irritating around the dressing but is otherwise not bothering him. He has no dysuria or pain with defecation. His left dorsal foot lesion is improving. PHYSICAL EXAMINATION: Reveals a gentleman whose temperatures are now going to 37.8 routinely but no higher. Currently 36.5, pulse 79, respiratory rate 16, blood pressure 116/63. He is saturating well on room air. He looks more tired and appears thinner each day as well to me, but he is awake and alert. His eyes with conjunctival pallor. No scleral icterus. Oral cavity without thrush or pharyngitis. Neck infection is completely resolved. His lungs quite clear posteriorly. Cardiac tones with 2/6 murmur as before. The right upper extremity PICC line has some irritation around the dressing margins and there is a mild erythematous bump or papule at the entrance site but is not changing day by day nor is it tender. The abdomen is soft and nontender. The left dorsal foot erythematous lesion is gradually receding. LABORATORIES: Include a white count which is stuck at 100, platelet count 13,000. Creatinine 0.63. ALT is 77 and it is climbing now. An alkaline phos is also climbing and is now 187. Albumin 3.0. The Fungitell and galactomannan from the are negative. Stool C. difficile negative. Many pending blood cultures all negative. No new imaging. IMPRESSION: The patient continues to do surprisingly well despite now a couple months of absolute and almost complete neutropenia. He is not having any temperatures greater than 38 degrees nor does he have any significant pulmonary or gastrointestinal symptoms. Two things are of some concern today and one is his dropping sodium and the other is the rising alk phos and ALT. At this point, I am not certain that either of these developments justifies any change in antimicrobials but I remain quite concerned. RECOMMENDATIONS: 1. Will continue with the levo and posaconazole. 2. Fungitell and galactomannan will be checked today. 3. Should the patient's LFTs rise tomorrow, especially an increase in the alk phos, I would obtain a right upper quadrant ultrasound looking for acalculous cholecystitis. 4. Should the patient spike a fever over the weekend, I would ask that I be notified, and at that point, will initiate a workup which will include additional imaging of the chest as well as additional fungal blood cultures and other studies as indicated. CHINAD
[2016-11-19] MEDS ORDERED: 0.9% Sodium Chloride 250 ML IV ONE (12:55)
[2016-11-19] MEDS ORDERED: diphenhydrAMINE 25 mg Capsule PO ONE (12:55)
--- NOTE | 2016-11-19 13:02 | PCM.PNMED ---
Subjective Date of Service Nov 19, 2016 Subjective Patient reports that he is somewhat lethargic and drowsy today. No chest pain, no dyspnea, no nausea vomiting or diarrhea Exam Vital Signs Vital Sign - Last Date Time Temp Pulse Resp B/P Pulse Ox O2 Delivery O2 Flow Rate FiO2 11/19/16 12:28 37.2 79 18 123/73 99 Room Air Intake and Output 11/18/16 11/18/16 11/19/16 Cumulative From/Thru 15:00 23:00 07:00 10/24/16 06:05 - 11/19/16 05:54 Intake Total 760 ml 520 ml 55817 ml Output Total 950 ml 1625 ml 45250 ml Balance -190 ml -1105 ml -2700 ml Intake Oral 760 ml 520 ml 58109 ml IV Total 45497 ml Packed Cells 1800 ml Platelets 2490 ml Output Urine Total 950 ml 1625 ml 23428 ml # Voids 16 # Bowel Movements 1 0 25 Exam Gen.- A+ O 3 no apparent distress. Thin male sitting up in chair Eyes- open conjunctiva clear, pupils equal nonicteric ENT- ears normal, nose normal Neck- supple/trach midline CVS-rrr (-) murmur/gallop Lungs-normal rate and effort no accessory muscle, CTA no wheezes or rhonchi GI-nabs/nt Musc- moving 4 no obvious deformity Neuro- cranial nerves II through XII intact to gross examination, nonfocal Skin- warm and dry, no rashes/lesions/wounds noted small petechia noted on dorsal aspect of feet somewhat stable/improving/resolving Psych- pleasant and appropriate, Lab and Diagnostics Result Diagram: 11/19/16 0510 11/19/16 0415 X-Rays, CTs and MRIs PROCEDURE: X-RAY CHEST ONE VIEW, PORTABLE ([id number]) INDICATIONS: 71 year-old male with neutropenic fevers. TECHNIQUE: One view of the chest was acquired. COMPARISON: None. FINDINGS: Surgical changes and devices: Right PICC is present, with tip in the upper superior vena cava. Lungs and pleura: No pleural effusions or pneumothorax. Lungs are clear. Mediastinum: Mediastinal contours appear normal. Heart size is normal. There is aortic atherosclerosis. Bones and chest wall: No suspicious bony lesions. Overlying soft tissues appear unremarkable. IMPRESSION: No acute cardiopulmonary disease. Dictated by: Shawn Marcial M.D. on 10/24/2016 at 7:29 Approved by: Shawn Marcial M.D. on 10/24/2016 at 7:29 Additional Diagnostics PROCEDURE: US SOFT TISSUE OF HEAD OR NECK SONOGRAM INDICATIONS: 71 year-old male with neutropenic fevers and neck swelling. Assess for abscess. TECHNIQUE: Real-time scanning was performed of the neck region of interest, with image documentation. COMPARISON: None. FINDINGS: In the region of interest, no fluid collections identified to suggest abscess. Normal-appearing sternocleidomastoid muscles are identified. No enlarged lymph nodes identified. IMPRESSION: No sonographic evidence for neck abscess. Dictated by: Shawn Marcial M.D. on 10/24/2016 at 8:02 Approved by: Shawn Marcial M.D. on 10/24/2016 at 8:03 Assessment & Plan 71 yo M w/ recent hospitalization 10/08-10/19 with newly diagnosed AML s/p induction ctx, pseudomonas bacteremia p/w fever with neck started 2days ago. 11/15 meeting medically complex patient who is currently stable 11/17 patient continues to be stable. Platelets trickled down, some diarrhea and a little bit frustrated that C. difficile has not been obtained properly.. Continuing to wait for marrow recovery. Repeat bone marrow per heme/ on, antibiotics per infectious disease thank you. 11/18 low-grade fever once overnight, no other symptoms, heme/on low tolerance to expand antibiotic prophylaxis, ID following major concern PICC line site, no action at present. Continuing to await bone marrow recovery. 11/19 still low-grade fever, if LFTs bump checked for cholecystitis 11/20 labs ordered, transfusing 1 unit PRBCs and 1 unit aphareised platelets pt symptomatic , checking cbc for plt bump 1hr s/p plts. Pt denies epidydimits sx. Complaints of fatigue may be related to anemia but also possibly hyponatremia. Chronic hyponatremia- - hydrochlorothiazide, on admit - Continue to monitor every few days -Checking Bnp, urine, NA, probably SIADH patient does not appear volume overloaded, 11/19 -Patient persistently fluid negative i/os may be dehydration 11/19 if urine sodium all less than 10 we will give IV fluids 11/19 Thrombocytopenia, POA - he was transfused several units of platelets, 1more U 11/19 plts 13, no overt bleeding petechiae stable/improving on feet -- Continue to monitor with daily labs Chronic anemia, POA -Patient received 2 units of PRBC on 11/08/16, 1 unit 11/19 -Continues to trickled down as we await marrow recovery #Neutropenic fever, recent pseudomonal bacteremia- Levaquin/posaconazole 11/15- per ID thank you Dr. Hackett following -Blood cultures negative to date - MRSA negative -Cryptococcus antigen negative -Galactomannan Ag, and fungal antibodies negative so far. Last set of lab results showed normal Galactomannan Ag, fungal antibodies are negative -Consider checking epididymitis on a periodic basis: Rechecked this on 11/13/16 and he did not appear to have any erythema, swelling, tenderness Hypertension SBP 123-134 11/19 -Patient's hydralazine was reduced to 10 mg 3 times a day and 10 mg daily at bedtime due to drop in blood pressure in a.m. -Continue diltiazem 180 mg daily # Diarrhea onset 11/12/16: Appears to have resolved after 2 days. Stool culture ordered is still outstanding # Macular diffuse rash over chest and abdomen onset 11/14/16: Much improved 11/15 -- This appears to be related to his recent diarrhea, likely due to viral infection. Could be due to drug rash per Dr. Hackett, he asked for meropenem to be discontinued as this may have caused the rash. -- Started Levaquin by mouth [address] Hackett. 11/15- AML with severe neutropenia, dxed in 10/12/2016, CBC on 10/29 showed concerning 20 % blast, he has completed induction chemo that was done for 7 days, started on . -Per oncology thank you Dr. Ferreira, I believe bone marrow is planned for Wednesday 11/22 PICC line finding: notified by infusion services that the patient's PICC line is out by 4 cm now at the brachiocephalic junction. Left a message for oncology. The patient's oncologist is aware of the conversation he had with the patient. Newly found bilateral epididymitis on US testicle, on 10/28, unclear clinical significance of this, possible leukemic infiltration, stable, unlikely new source of infection and patient also covered well with abx. -- Negative for acute infectious findings Disposition: He will be monitored until his cell counts normalize in the hospital for oncology diet:regular as tolerate dvt ppx:SCD Full Code VTE Prophylaxis: Other (not needed platelets are 7) VTE Mechanical Devices: Intermittant Pneumatic CD Resuscitation Status: CPR: Attempt Resuscitation Vlad Renner MD Nov 19, 2016 13:02
[2016-11-19] MEDS ORDERED: 0.9% Sodium Chloride 250 ML ONE (20:36)
[2016-11-19] MEDS: LORazepam 1 mg Tablet PO PRN (21:27)
[2016-11-19] MEDS: 0.9% NaCl + KCl 20 mEq/L 1,000 ML IV SCH (21:27)
[2016-11-19 23:45] LABS: Mean Corpuscular Hemoglobin 28.7 pg (27.0-35.0); Mean Corpuscular Volume 81.2 fL (81-100)
[2016-11-20 05:20] VITALS: BP 145/67; PULSE 84; RESP 18; O2SAT 95
[2016-11-20] MEDS: 0.9% NaCl + KCl 20 mEq/L 1,000 ML IV SCH (05:23)
[2016-11-20 05:48] LABS: Mean Corpuscular Hemoglobin 28.3 pg (27.0-35.0); Mean Corpuscular Volume 81.9 fL (81-100)
[2016-11-20 05:51] LABS: Platelet Count 26 bil/L (150-400)
--- NOTE | 2016-11-20 07:32 | PCM.PNMED ---
Subjective Date of Service Nov 20, 2016 Subjective pt afebrile overnight, s/p platelets/prbc - sodium improved to 132 today - denies cp/sob/f this AM Exam Vital Signs Vital Sign - Last Date Time Temp Pulse Resp B/P Pulse Ox O2 Delivery O2 Flow Rate FiO2 11/20/16 05:20 36.6 84 18 145/67 95 Room Air Intake and Output 11/19/16 11/19/16 11/20/16 Cumulative From/Thru 14:59 22:59 06:59 10/24/16 06:05 - 11/20/16 05:45 Intake Total 3229 ml 3161 ml 991728 ml Output Total 750 ml 2525 ml 298931 ml Balance 2479 ml 636 ml 415 ml Intake Oral 2585 ml 1875 ml 14275 ml IV Total 94 ml 1286 ml 41180 ml Packed Cells 300 ml 2100 ml Platelets 250 ml 2740 ml Output Urine Total 750 ml 2525 ml 698299 ml # Voids 16 # Bowel Movements 1 26 Exam Gen.- A+ O 3 no apparent distress. Eyes- open conjunctiva clear, pupils equal nonicteric ENT- ears normal, nose normal Neck- supple/trach midline CVS-rrr (-) murmur/gallop Lungs-normal rate and effort no accessory muscle, CTA no wheezes or rhonchi GI-nabs/nt Musc- moving 4 no obvious deformity Neuro- cranial nerves II through XII intact to gross examination, nonfocal Skin- warm and dry, no rashes/lesions/wounds noted small petechia noted on dorsal aspect of feet somewhat stable/improving/resolving Psych- pleasant and appropriate, IVs and Medications Medications Reviewed: Medications were reviewed in detail Lab and Diagnostics Result Diagram: 11/20/1652911/20/1630 X-Rays, CTs and MRIs PROCEDURE: X-RAY CHEST ONE VIEW, PORTABLE ([id number]) INDICATIONS: 71 year-old male with neutropenic fevers. TECHNIQUE: One view of the chest was acquired. COMPARISON: None. FINDINGS: Surgical changes and devices: Right PICC is present, with tip in the upper superior vena cava. Lungs and pleura: No pleural effusions or pneumothorax. Lungs are clear. Mediastinum: Mediastinal contours appear normal. Heart size is normal. There is aortic atherosclerosis. Bones and chest wall: No suspicious bony lesions. Overlying soft tissues appear unremarkable. IMPRESSION: No acute cardiopulmonary disease. Dictated by: Shawn Marcial M.D. on 10/24/2016 at 7:29 Approved by: Shawn Marcial M.D. on 10/24/2016 at 7:29 Additional Diagnostics PROCEDURE: US SOFT TISSUE OF HEAD OR NECK SONOGRAM INDICATIONS: 71 year-old male with neutropenic fevers and neck swelling. Assess for abscess. TECHNIQUE: Real-time scanning was performed of the neck region of interest, with image documentation. COMPARISON: None. FINDINGS: In the region of interest, no fluid collections identified to suggest abscess. Normal-appearing sternocleidomastoid muscles are identified. No enlarged lymph nodes identified. IMPRESSION: No sonographic evidence for neck abscess. Dictated by: Shawn Marcial M.D. on 10/24/2016 at 8:02 Approved by: Shawn Marcial M.D. on 10/24/2016 at 8:03 Assessment & Plan 71 yo M w/ recent hospitalization 10/08-10/19 with newly diagnosed AML s/p induction ctx, pseudomonas bacteremia p/w fever with neck started 2days ago. 11/15 meeting medically complex patient who is currently stable 11/17 patient continues to be stable. Platelets trickled down, some diarrhea and a little bit frustrated that C. difficile has not been obtained properly.. Continuing to wait for marrow recovery. Repeat bone marrow per heme/ on, antibiotics per infectious disease thank you. 11/18 low-grade fever once overnight, no other symptoms, heme/on low tolerance to expand antibiotic prophylaxis, ID following major concern PICC line site, no action at present. Continuing to await bone marrow recovery. 11/19 still low-grade fever, if LFTs bump checked for cholecystitis 11/20 labs ordered, transfusing 1 unit PRBCs and 1 unit aphareised platelets pt symptomatic , checking cbc for plt bump 1hr s/p plts. Pt denies epidydimits sx. Complaints of fatigue may be related to anemia but also possibly hyponatremia. Chronic hyponatremia- - hydrochlorothiazide, on admit - Continue to monitor every few days -Checking Bnp, Ur Na 35, probably SIADH patient does not appear volume overloaded, 11/19 -stoppe fluids with correction from 124--> 132 on 11/20 Thrombocytopenia, POA - he was transfused several units of platelets, 1more U 3/31 plts 13, no overt bleeding petechiae stable/improving on feet -- Continue to monitor with daily labs Chronic anemia, POA -Patient received 2 units of PRBC on 11/08/16, 1 unit 11/19 -Continues to trickled down as we await marrow recovery #Neutropenic fever, recent pseudomonal bacteremia- Levaquin/posaconazole 11/15- per ID thank you Dr. Hackett following -Blood cultures negative to date - MRSA negative -Cryptococcus antigen negative -Galactomannan Ag, and fungal antibodies negative so far. Last set of lab results showed normal Galactomannan Ag, fungal antibodies are negative -Consider checking epididymitis on a periodic basis: Rechecked this on 11/13/16 and he did not appear to have any erythema, swelling, tenderness Hypertension SBP 123-134 11/19 -Patient's hydralazine was reduced to 10 mg 3 times a day and 10 mg daily at bedtime due to drop in blood pressure in a.m. -Continue diltiazem 180 mg daily # Diarrhea onset 11/12/16: Appears to have resolved after 2 days. Stool culture ordered is still outstanding # Macular diffuse rash over chest and abdomen onset 11/14/16: Much improved 11/15 -- This appears to be related to his recent diarrhea, likely due to viral infection. Could be due to drug rash per Dr. Hackett, he asked for meropenem to be discontinued as this may have caused the rash. -- Started Levaquin by mouth [address] Hackett. 11/15- AML with severe neutropenia, dxed in 10/12/2016, CBC on 10/29 showed concerning 20 % blast, he has completed induction chemo that was done for 7 days, started on . -Per oncology thank you Dr. Ferreira, I believe bone marrow is planned for Wednesday 11/22 PICC line finding: notified by infusion services that the patient's PICC line is out by 4 cm now at the brachiocephalic junction. Left a message for oncology. The patient's oncologist is aware of the conversation he had with the patient. Newly found bilateral epididymitis on US testicle, on 10/28, unclear clinical significance of this, possible leukemic infiltration, stable, unlikely new source of infection and patient also covered well with abx. -- Negative for acute infectious findings Disposition: He will be monitored until his cell counts normalize in the hospital for oncology diet:regular as tolerate dvt ppx:SCD Full Code Pain Evaluation: Adequate Pain Control GI Prophylaxis: Proton Pump Inhibitor VTE Prophylaxis: Other (low plateletet/bleeding risk) VTE Mechanical Devices: Intermittant Pneumatic CD Resuscitation Status: CPR: Attempt Resuscitation Time spent 40 minutes spent with eval and mgmt Jag Serrano DO Nov 20, 2016 07:32
[2016-11-20] MEDS: levoFLOXacin 750 mg Tablet PO SCH (09:10)
[2016-11-20] MEDS: Diltiazem CD 180 mg ER24 Capsule PO SCH (09:10)
[2016-11-20] MEDS: Pantoprazole 20 mg ER24 Tablet PO SCH (09:10)
[2016-11-20] MEDS: Nystatin 100,000 Unit/mL 5 mL Suspension PO SCH ×4 (09:13→21:20)
[2016-11-20] MEDS: Mupirocin 2% 22 Gm Ointment TOPICAL SCH ×2 (09:13→21:25)
[2016-11-20] MEDS: POSACONAZOLE PO SCH ×3 (09:13→17:53)
[2016-11-20 10:08] VITALS: BP 143/64; PULSE 18; PULSE 78; RESP 18; O2SAT 97
[2016-11-20] MEDS: Multivit-Miner-Folic Acid-Iron Tablet PO SCH (15:11)
[2016-11-20 16:08] VITALS: BP 146/73; PULSE 76; RESP 18; O2SAT 99
[2016-11-20 20:25] VITALS: BP 137/82; PULSE 82; RESP 16; O2SAT 99
[2016-11-20] MEDS: LORazepam 1 mg Tablet PO PRN (21:20)
[2016-11-21 05:30] LABS: Mean Corpuscular Volume 81.5 fL (81-100)
[2016-11-21 05:31] LABS: Platelet Count 25 bil/L (150-400)
[2016-11-21] MEDS: Pantoprazole 20 mg ER24 Tablet PO SCH (06:27)
[2016-11-21 06:32] VITALS: BP 112/56; PULSE 83; RESP 16; O2SAT 98
[2016-11-21] MEDS ORDERED: Potassium Chloride 20 mEq SR Tablet PO ONE (07:25)
--- NOTE | 2016-11-21 07:31 | PCM.PNMED ---
Subjective Date of Service Nov 21, 2016 Subjective no acute events overnight, no reports of f/cp/sob/n/v - mild improv in counts this wknd. Exam Vital Signs Vital Sign - Last Date Time Temp Pulse Resp B/P Pulse Ox O2 Delivery O2 Flow Rate FiO2 11/21/16 06:32 36.5 83 16 112/56 98 Room Air Intake and Output 11/20/16 11/20/16 11/21/16 Cumulative From/Thru 15:00 23:00 07:00 10/24/16 06:05 - 11/21/16 06:32 Intake Total 325 ml 1667 ml 1250 ml 406048 ml Output Total 1300 ml 2600 ml 473083 ml Balance 325 ml 367 ml -1350 ml -243 ml Intake Oral 1667 ml 1250 ml 39299 ml IV Total 325 ml 20111 ml Packed Cells 2100 ml Platelets 2740 ml Output Urine Total 1300 ml 2600 ml 671017 ml # Voids 16 # Bowel Movements 0 26 Exam Gen.- A+ O 3 no apparent distress. Eyes- open conjunctiva clear, pupils equal nonicteric ENT- ears normal, nose normal Neck- supple/trach midline CVS-rrr (-) murmur/gallop Lungs-normal rate and effort no accessory muscle, CTA no wheezes or rhonchi GI-nabs/nt Musc- moving 4 no obvious deformity Neuro- cranial nerves II through XII intact to gross examination, nonfocal Skin- warm and dry, no rashes/lesions/wounds noted small petechia noted on dorsal aspect of feet somewhat stable/improving/resolving Psych- pleasant and appropriate IVs and Medications Medications Reviewed: Medications were reviewed in detail Lab and Diagnostics Result Diagram: 11/21/1651411/21/16514 X-Rays, CTs and MRIs PROCEDURE: X-RAY CHEST ONE VIEW, PORTABLE ([id number]) INDICATIONS: 71 year-old male with neutropenic fevers. TECHNIQUE: One view of the chest was acquired. COMPARISON: None. FINDINGS: Surgical changes and devices: Right PICC is present, with tip in the upper superior vena cava. Lungs and pleura: No pleural effusions or pneumothorax. Lungs are clear. Mediastinum: Mediastinal contours appear normal. Heart size is normal. There is aortic atherosclerosis. Bones and chest wall: No suspicious bony lesions. Overlying soft tissues appear unremarkable. IMPRESSION: No acute cardiopulmonary disease. Dictated by: Shawn Marcial M.D. on 10/24/2016 at 7:29 Approved by: Shawn Marcial M.D. on 10/24/2016 at 7:29 Additional Diagnostics PROCEDURE: US SOFT TISSUE OF HEAD OR NECK SONOGRAM INDICATIONS: 71 year-old male with neutropenic fevers and neck swelling. Assess for abscess. TECHNIQUE: Real-time scanning was performed of the neck region of interest, with image documentation. COMPARISON: None. FINDINGS: In the region of interest, no fluid collections identified to suggest abscess. Normal-appearing sternocleidomastoid muscles are identified. No enlarged lymph nodes identified. IMPRESSION: No sonographic evidence for neck abscess. Dictated by: Shawn Marcial M.D. on 10/24/2016 at 8:02 Approved by: Shawn Marcial M.D. on 10/24/2016 at 8:03 Assessment & Plan 71 yo M w/ recent hospitalization 10/08-10/19 with newly diagnosed AML s/p induction ctx, pseudomonas bacteremia p/w fever with neck started 2days ago. 11/15 meeting medically complex patient who is currently stable 11/17 patient continues to be stable. Platelets trickled down, some diarrhea and a little bit frustrated that C. difficile has not been obtained properly.. Continuing to wait for marrow recovery. Repeat bone marrow per heme/ on, antibiotics per infectious disease thank you. 11/18 low-grade fever once overnight, no other symptoms, heme/on low tolerance to expand antibiotic prophylaxis, ID following major concern PICC line site, no action at present. Continuing to await bone marrow recovery. 11/19 still low-grade fever, if LFTs bump checked for cholecystitis / labs ordered, transfusing 1 unit PRBCs and 1 unit aphareised platelets pt symptomatic , checking cbc for plt bump 1hr s/p plts. Pt denies epidydimits sx. Complaints of fatigue may be related to anemia but also possibly hyponatremia. Chronic hyponatremia- - hydrochlorothiazide, on admit - Continue to monitor every few days -Checking Bnp, Ur Na 35, probably SIADH patient does not appear volume overloaded, 11/19 -stoppe fluids with correction from 124--> 132 Thrombocytopenia, POA - he was transfused several units of platelets, 1more U 11/19 plts 13, no overt bleeding petechiae stable/improving on feet -- Continue to monitor with daily labs Chronic anemia, POA -Patient received 2 units of PRBC on 11/08/16, 1 unit 11/19 -Continues to trickled down as we await marrow recovery Neutropenic fever, recent pseudomonal bacteremia- Levaquin/posaconazole 11/15- per ID thank you Dr. Hackett following -Blood cultures negative to date - MRSA negative -Cryptococcus antigen negative -Galactomannan Ag, and fungal antibodies negative so far. Last set of lab results showed normal Galactomannan Ag, fungal antibodies are negative -Consider checking epididymitis on a periodic basis: clinically improved - Rechecked this on 11/13/16 and he did not appear to have any erythema, swelling, tenderness Hypertension SBP 123-134 11/19 -Patient's hydralazine was reduced to 10 mg 3 times a day and 10 mg daily at bedtime due to drop in blood pressure in a.m. -Continue diltiazem 180 mg daily Diarrhea onset 11/12/16: Appears to have resolved after 2 days. Stool culture ordered is still outstanding Macular diffuse rash over chest and abdomen onset 11/14/16: Much improved 11/15 -- This appears to be related to his recent diarrhea, likely due to viral infection. Could be due to drug rash per Dr. Hackett, he asked for meropenem to be discontinued as this may have caused the rash. -- Started Levaquin by mouth [address] Hackett 11/15 AML with severe neutropenia, dxed in 10/12/2016, CBC on 10/29 showed concerning 20 % blast, he has completed induction chemo that was done for 7 days, started on . -Per oncology thank you Dr. Ferreira, I believe bone marrow is planned for Wednesday 11/22 PICC line finding: notified by infusion services that the patient's PICC line is out by 4 cm now at the brachiocephalic junction. Left a message for oncology. The patient's oncologist is aware of the conversation he had with the patient. Newly found bilateral epididymitis on US testicle, on 10/28, unclear clinical significance of this, possible leukemic infiltration, stable, unlikely new source of infection and patient also covered well with abx. - Negative for acute infectious findings Disposition: He will be monitored until his cell counts normalize in the hospital for oncology diet:regular as tolerate dvt ppx:SCD GI Prophylaxis: Proton Pump Inhibitor VTE Prophylaxis: Other (low plateletet/bleeding risk) VTE Mechanical Devices: Intermittant Pneumatic CD Resuscitation Status: CPR: Attempt Resuscitation Time spent 30 minutes spent with eval and Jag Fajardo DO Nov 21, 2016 07:31
[2016-11-21] MEDS: Multivit-Miner-Folic Acid-Iron Tablet PO SCH (09:29)
[2016-11-21] MEDS: levoFLOXacin 750 mg Tablet PO SCH (09:29)
[2016-11-21] MEDS: Diltiazem CD 180 mg ER24 Capsule PO SCH (09:29)
[2016-11-21] MEDS: Nystatin 100,000 Unit/mL 5 mL Suspension PO SCH ×4 (09:29→20:40)
[2016-11-21] MEDS: POSACONAZOLE PO SCH (09:29)
[2016-11-21 11:23] LABS: NEUTROPHILS % (AUTO) 60 % (40-74)
[2016-11-21 11:24] LABS: BASOPHILS % (AUTO) 0 % (0-3); EOSINOPHILS % (AUTO) 0 % (0-5); MONOCYTES % (AUTO) 0 % (4-12)
[2016-11-21] MEDS: Mupirocin 2% 22 Gm Ointment TOPICAL SCH ×2 (11:33→20:40)
[2016-11-21 11:40] VITALS: BP 127/71; PULSE 72; RESP 16; O2SAT 99
[2016-11-21] MEDS ORDERED: POSACONAZOLE PO SCH (12:10)
--- NOTE | 2016-11-21 16:21 | PROG NOTE ---
[address] [address] PROGRESS NOTE PATIENT: JEFF AMEZCUA : 1945 MR#: [id number] ADMIT: 10/24/2016 JOB ID: [id number] DATE: 11/21/2016 REASON FOR FOLLOWUP: Prolonged neutropenia with Pseudomonas sepsis and cellulitis. INTERVAL HISTORY: Overnight, the patient has felt relatively well. He did have a very prolonged and voluminous bowel movement today, but this continues in a pattern he has had here in the hospital, where he goes a day or two without any stools and then has a very long bowel movement. He and his report this happens to him occasionally at home as well and is often made better by Imodium. He has no fevers, no chills, no sweats. No headache, sore throat, cough, shortness of breath or chest pain. He has had no nausea or vomiting and his appetite is quite good. When I first met them this morning, they were walking around the chew and he was without any difficulty in performing that activity. PHYSICAL EXAMINATION: Reveals a completely afebrile and comfortable gentleman. Temp 36.7, pulse 72, respiratory rate 16, blood pressure 127/71. He is in no acute distress. His oral cavity benign. His lungs quite clear. Cardiac tones without murmur. PICC line appears functional and without new tenderness. The abdomen is completely soft and nontender including the right upper quadrant. LABORATORIES: Include a white count of 300. I called the lab and asked them to do a differential and it turns out to be 60% neutrophils for a calculated ANC of 180. Platelets are stable at 25,000. Creatinine 0.55. LFTs continue to rise, which is of some concern. His AST has now reached 64. ALT 117 and alk phos 211. Procalcitonin 0.19. Repeat Fungitell and galactomannan are pending. C. diff and blood cultures negative. No new imaging. IMPRESSION: The patient appears to have a significant uptake in his neutrophil count which has been stuck at zero for weeks. He now appears to have 180 neutrophils without any blasts and this is great news. 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 This is clearly a nosocomial event and I wonder if it is due to some of our medications. Possibility of hepatosplenic Candidiasis exists, but I think it is unlikely as he has been on posaconazole prophylaxis, and I wonder if posaconazole itself could be the cause as it can cause a cholestatic hepatitis. RECOMMENDATIONS: 1. Ultrasound right upper quadrant will be done tomorrow. 2. I would stop the Tylenol which he has on a p.r.n. basis with his rising LFTs. 3. I have stopped the posaconazole. The patient is on the cusp of having a reasonable and neutrophil count and I think the risk of fungal infections has dropped off markedly and I worry that the posaconazole is actually causing his cholestatic hepatitis. 4. All of this is discussed with the patient and his .
[2016-11-21 20:27] VITALS: BP 133/79; PULSE 78; RESP 18; O2SAT 100
[2016-11-21] MEDS: LORazepam 1 mg Tablet PO PRN (20:59)
[2016-11-22 04:32] LABS: Mean Corpuscular Hemoglobin 28.6 pg (27.0-35.0); Mean Corpuscular Volume 81.6 fL (81-100)
[2016-11-22 05:50] VITALS: BP 135/65; PULSE 78; RESP 16; O2SAT 99
[2016-11-22] MEDS: Pantoprazole 20 mg ER24 Tablet PO SCH (06:10)
[2016-11-22] MEDS: levoFLOXacin 750 mg Tablet PO SCH (06:10)
[2016-11-22 06:12] VITALS: BP 119/68
[2016-11-22] MEDS ORDERED: Magnesium Sulf 2 Gm/50mL Water 2 GM in IV Premix 1 EACH IV ONE (07:15)
[2016-11-22] MEDS ORDERED: 0.9% Sodium Chloride 100 ML ONE (07:22)
--- NOTE | 2016-11-22 07:24 | PCM.PNMED ---
Subjective Date of Service Nov 22, 2016 Subjective no acute events overnight - denies f/c/cp/sob - replace mag today, await liver panel but denies sig abdom pain or nausea, u/s abdom/BM bx planned for today. counts continue toimprove Exam Vital Signs Vital Sign - Last Date Time Temp Pulse Resp B/P Pulse Ox O2 Delivery O2 Flow Rate FiO2 11/22/16 06:12 119/68 11/22/16 05:50 37.1 78 16 99 Room Air Intake and Output 11/21/16 11/21/16 11/22/16 Cumulative From/Thru 14:59 22:59 06:59 10/24/16 06:05 - 11/22/16 05:50 Intake Total 1400 ml 960 ml 705166 ml Output Total 1150 ml 1650 ml 394081 ml Balance 250 ml -690 ml -683 ml Intake Oral 1400 ml 960 ml 62279 ml IV Total 13257 ml Packed Cells 2100 ml Platelets 2740 ml Output Urine Total 1150 ml 1650 ml 067306 ml # Voids 16 # Bowel Movements 2 0 28 Exam Gen.- A+ O 3 no apparent distress. Eyes- open conjunctiva clear, pupils equal nonicteric ENT- ears normal, nose normal Neck- supple/trach midline CVS-rrr (-) murmur/gallop Lungs-normal rate and effort no accessory muscle, CTA no wheezes or rhonchi GI-nabs/nt Musc- moving 4 no obvious deformity Neuro- cranial nerves II through XII intact to gross examination, nonfocal Skin- warm and dry, no rashes/lesions/wounds noted small petechia noted on dorsal aspect of feet somewhat stable/improving/resolving Psych- pleasant and appropriate IVs and Medications Medications Reviewed: Medications were reviewed in detail Lab and Diagnostics Result Diagram: 11/22/16 0400 11/22/16 0400 X-Rays, CTs and MRIs PROCEDURE: X-RAY CHEST ONE VIEW, PORTABLE ([id number]) INDICATIONS: 71 year-old male with neutropenic fevers. TECHNIQUE: One view of the chest was acquired. COMPARISON: None. FINDINGS: Surgical changes and devices: Right PICC is present, with tip in the upper superior vena cava. Lungs and pleura: No pleural effusions or pneumothorax. Lungs are clear. Mediastinum: Mediastinal contours appear normal. Heart size is normal. There is aortic atherosclerosis. Bones and chest wall: No suspicious bony lesions. Overlying soft tissues appear unremarkable. IMPRESSION: No acute cardiopulmonary disease. Dictated by: Shawn Marcial M.D. on 10/24/2016 at 7:29 Approved by: Shawn Marcial M.D. on 10/24/2016 at 7:29 Additional Diagnostics PROCEDURE: US SOFT TISSUE OF HEAD OR NECK SONOGRAM INDICATIONS: 71 year-old male with neutropenic fevers and neck swelling. Assess for abscess. TECHNIQUE: Real-time scanning was performed of the neck region of interest, with image documentation. COMPARISON: None. FINDINGS: In the region of interest, no fluid collections identified to suggest abscess. Normal-appearing sternocleidomastoid muscles are identified. No enlarged lymph nodes identified. IMPRESSION: No sonographic evidence for neck abscess. Dictated by: Shawn Marcial M.D. on 10/24/2016 at 8:02 Approved by: Shawn Marcial M.D. on 10/24/2016 at 8:03 Assessment & Plan 71 yo M w/ recent hospitalization 10/08-10/19 with newly diagnosed AML s/p induction ctx, pseudomonas bacteremia p/w fever with neck started 2days ago. 11/15 meeting medically complex patient who is currently stable 11/17 patient continues to be stable. Platelets trickled down, some diarrhea and a little bit frustrated that C. difficile has not been obtained properly.. Continuing to wait for marrow recovery. Repeat bone marrow per heme/ on, antibiotics per infectious disease thank you. 11/18 low-grade fever once overnight, no other symptoms, heme/on low tolerance to expand antibiotic prophylaxis, ID following major concern PICC line site, no action at present. Continuing to await bone marrow recovery. 11/19 still low-grade fever, if LFTs bump checked for cholecystitis / labs ordered, transfusing 1 unit PRBCs and 1 unit aphareised platelets pt symptomatic , checking cbc for plt bump 1hr s/p plts. Pt denies epidydimits sx. Complaints of fatigue may be related to anemia but also possibly hyponatremia. Chronic hyponatremia- - hydrochlorothiazide, on admit - Continue to monitor every few days -Checking Bnp, Ur Na 35, probably SIADH patient does not appear volume overloaded, 11/19 -stoppe fluids with correction from 124--> 132 Thrombocytopenia, POA - he was transfused several units of platelets, 1more U 11/19 plts 13, no overt bleeding petechiae stable/improving on feet -- Continue to monitor with daily labs Chronic anemia, POA -Patient received 2 units of PRBC on 11/08/16, 1 unit 11/19 -Continues to trickled down as we await marrow recovery Neutropenic fever, recent pseudomonal bacteremia- Levaquin/posaconazole 11/15- per ID thank you Dr. Hackett following -posaconazole dc'd 11/21 as possible etiology for cholestatic labs -Blood cultures negative to date - MRSA negative -Cryptococcus antigen negative -Galactomannan Ag, and fungal antibodies negative so far. Last set of lab results showed normal Galactomannan Ag, fungal antibodies are negative -Consider checking epididymitis on a periodic basis: clinically improved - Rechecked this on 11/13/16 and he did not appear to have any erythema, swelling, tenderness Hypertension SBP 123-134 11/19 -Patient's hydralazine was reduced to 10 mg 3 times a day and 10 mg daily at bedtime due to drop in blood pressure in a.m. -Continue diltiazem 180 mg daily Diarrhea onset 11/12/16: Appears to have resolved after 2 days. Stool culture ordered is still outstanding Macular diffuse rash over chest and abdomen onset 11/14/16: Much improved 11/15 -- This appears to be related to his recent diarrhea, likely due to viral infection. Could be due to drug rash per Dr. Hackett, he asked for meropenem to be discontinued as this may have caused the rash. -- Started Levaquin by mouth [address] Hackett 11/15 AML with severe neutropenia, dxed in 10/12/2016, CBC on 10/29 showed concerning 20 % blast, he has completed induction chemo that was done for 7 days, started on . -Per oncology thank you Dr. Ferreira, bone marrow is planned for Wednesday 11/22, counts improving PICC line finding: notified by infusion services that the patient's PICC line is out by 4 cm now at the brachiocephalic junction. Left a message for oncology. The patient's oncologist is aware of the conversation he had with the patient. Newly found bilateral epididymitis on US testicle, on 10/28, unclear clinical significance of this, possible leukemic infiltration, stable, unlikely new source of infection and patient also covered well with abx. - Negative for acute infectious findings Disposition: He will be monitored until his cell counts normalize in the hospital for oncology diet:regular as tolerate dvt ppx:SCD Pain Evaluation: Adequate Pain Control GI Prophylaxis: Proton Pump Inhibitor VTE Prophylaxis: Other (low plateletet/bleeding risk) VTE Mechanical Devices: Intermittant Pneumatic CD Resuscitation Status: CPR: Attempt Resuscitation Time spent 30 minutes spent with eval/mgmt Jag Serrano DO Nov 22, 2016 07:24
[2016-11-22 07:55] LABS: Bilirubin, Direct < 0.2 mg/dL (0.0-0.3)
--- NOTE | 2016-11-22 08:07 | PROG NOTE ---
[address] [address] PROGRESS NOTE PATIENT: JEFF AMEZCUA : 1945 MR#: [id number] ADMIT: 10/24/2016 JOB ID: [id number] DATE: 11/22/2016 SUBJECTIVE: The patient is a 71-year-old gentleman with acute myelogenous leukemia, status post re-induction chemotherapy. Today is day 23 since he started re-induction chemotherapy. He had a few low-grade fevers over the weekend, but no associated cough, shortness of breath or chills. He has had a slight elevation in his liver enzymes, and is undergoing an abdominal ultrasound this morning. His posaconazole was discontinued. He remains on antibiotic coverage with Levaquin. His blood cultures this hospitalization have been negative to date. Additional blood fungal culture is pending. Note that he previously had blood cultures positive for Pseudomonas aeruginosa during a previous hospitalization, and urine positive for Enterococcus faecalis. Recent bowel movements have been semi-firm. Testing for Clostridium difficile was negative. OBJECTIVE: Vitals: T 37.1, P 78, R 16, BP 135/65, O2 saturation 99% on room air. HEENT: Conjunctivae slightly pale. Mucous membranes moist. No oral lesions. Nodes: No adenopathy in the neck, axilla, or groin. Chest: Clear throughout. No wheezes. Cardiac exam: Regular rate and rhythm with normal S1, S2. Abdomen: Soft, nontender. Normoactive bowel tones. No splenomegaly or masses. Extremities: No edema. 2+ distal pulses. LABORATORIES: WBC 0.6, hemoglobin 9.0, hematocrit 25.7%, platelets 35,000. Sodium 131, potassium 3.8, BUN 9, creatinine 0.59, glucose 107. Liver enzymes-pending. ASSESSMENT AND PLAN: Acute myelogenous leukemia, day 23 status post re-induction chemotherapy: Clinically stable. No definite indication for transfusion support. Continue to monitor. Neutropenia is beginning to rapidly resolve. We will arrange for bone marrow biopsy and aspirate studies either later today or tomorrow. Those results, which would be available in approximately one week, will determine future management. However, I believe that as he is rapidly recovering, he will likely be able to be discharged home either tomorrow or the following day, unless a complication from his transaminitis were to delay discharge.
[2016-11-22] MEDS: Nystatin 100,000 Unit/mL 5 mL Suspension PO SCH ×4 (08:48→21:12)
[2016-11-22] MEDS: Multivit-Miner-Folic Acid-Iron Tablet PO SCH (08:48)
[2016-11-22] MEDS: Diltiazem CD 180 mg ER24 Capsule PO SCH (08:49)
[2016-11-22] MEDS: Mupirocin 2% 22 Gm Ointment TOPICAL SCH ×2 (08:49→21:12)
--- NOTE | 2016-11-22 09:06 | DRSVH ---
PROCEDURE: US ABDOMEN ([id number]) INDICATIONS: cholestatic hepatitis TECHNIQUE: Real-time scanning was performed of the abdominal and retroperitoneal organs, with image documentatio n. COMPARISON: CT CAP 10/08/2016; CT abdomen 08/17/2011; CT abdomen and pelvis 08/15/2009 FINDINGS: Liver: Liver is normal in size and homogeneous in echotexture. Gallbladder: Gallbladder is not well distended. No filling defects or wall thickening seen. Biliary ducts: Intrahepatic bile ducts are non-dilated. Extrahepatic bile duct caliber measures 6 m m. Normal is 6-7 mm or less in diameter, or 10 mm or less post-cholecystectomy. Pancreas: As noted on prior CT exams, there is a 2.0 cm maximum diameter hypoechoic filling defect in the head of pancreas/uncinate process. Spleen: Spleen is mildly enlarged at 13.8 cm and homogeneous in echotexture. Kidneys: Kidneys are normal in size and echotexture. Right kidney measures 12.7 cm long; left kidne y measures 13.2 cm long. Renal cortices measure 1.5 CM right and 1.9 CM left. No hydronephrosis or n ephrolithiasis. No solid masses. Aorta: Visualized aorta is normal in caliber at less than 3 cm. Iliacs: Proximal common iliac arteries are normal in caliber at less than 2.5 cm. IVC: Intrahepatic inferior vena cava is patent. Miscellaneous: No free abdominal fluid. IMPRESSION: 1. Pancreatic cyst in the uncinate process region is again noted. The cystic area in the junction of body and tail on prior CT imaging is not seen sonographically. 2. Mild splenomegaly, unchanged. Dictated by: Yonis Cannon M.D. on 11/22/2016 at 8:53 Approved by: Yonis Cannon M.D. on 11/22/2016 at 9:05
[2016-11-22 12:05] VITALS: BP 113/66; PULSE 78; RESP 18; O2SAT 100
[2016-11-22 13:07] VITALS: BP 119/65; PULSE 75; RESP 18; O2SAT 100
[2016-11-22] MEDS ORDERED: Heparin 1,000 Units/mL 2 mL Inj INJ SCH (14:00)
--- NOTE | 2016-11-22 15:13 | PROCED ---
[address] [address] PROCEDURE NOTE PATIENT: JEFF AMEZCUA : 1945 MR#: [id number] ADMIT: 10/24/2016 JOB ID: [id number] DATE OF SERVICE: 11/22/2016 POSTOPERATIVE DIAGNOSIS(ES): PREOPERATIVE DIAGNOSIS(ES): SURGEON: Sai Balbuena MD. PROCEDURE: Bone marrow biopsy and aspiration. INDICATION: Evaluation of acute myelogenous leukemia, status post re-induction chemotherapy. The patient was consented. After a brief time-out, he again agreed to the procedure and signed the appropriate consent. He was placed in the prone position. The left posterior iliac crest was prepped. He received lidocaine 1% injected subcutaneously, then down to the bone surface. An [place] needle was introduced into the left posterior iliac crest and approximately 12 mL aspirate with spicules removed. Slides were prepared and additional specimen placed in tubes for flow cytometry and cytogenetics. A Jamsh[place] needle was then introduced into the left posterior iliac crest and a 1.5 cm core specimen extracted. Touch preps were made and the remainder of the specimen placed in formalin for pathologic review. The patient tolerated the procedure well with no acute complications. Results should be available in about seven days.
--- NOTE | 2016-11-22 16:53 | PROG NOTE ---
[address] [address] PROGRESS NOTE PATIENT: JEFF AMEZCUA : 1945 MR#: [id number] ADMIT: 10/24/2016 JOB ID: [id number] DATE: 11/22/2016 REASON FOR FOLLOWUP: Prolonged neutropenia with Pseudomonas sepsis and cellulitis as complications, now with cholestatic hepatitis. INTERVAL HISTORY: The patient reports he is feeling reasonably well today and is starting to get anxious about what will hopefully be discharge in the next few days. He has no fevers, chills, sweats. No sore throat, cough, chest pain, nausea, vomiting, or diarrhea. He has absolutely no right upper quadrant pain. PHYSICAL EXAMINATION: Reveals a consistently afebrile gentleman, temp 37.1, pulse 78, respiratory rate 16, blood pressure 119/68, saturating well on room air, and in no acute distress. Oral cavity: Benign. The anterior neck cellulitis benign-appearing. PICC line with the same nodule at the entrance site, as well as some diffuse excoriations underneath the tape but otherwise looks okay and it flushes well according to the nurses. Neck without new cellulitis. Lungs clear. Cardiac tones without new murmur, a 2/6 murmur still present. Abdomen benign. LABORATORIES: Include a white count which has now jumped to 600. Note that yesterday's was 60% polys, so his neutrophil count is probably 3-400 today. Platelets are also going up now, 35,000. Creatinine 0.59. His LFTs are still worsening. His ALT has gone from 117 to 143 and his alk phos from 211 to 226. Repeat Fungitell and galactomannan are pending. Stool for C. difficile on November 18 was negative. Recent fungal blood cultures negative. The abdominal ultrasound I ordered yesterday showed nothing wrong with the liver and gallbladder. Pancreatic cyst was again seen and mild splenomegaly. IMPRESSION: Overall, the patient is doing great as his white count rapidly increases, and hopefully he will be ready for discharge in the next day or two as his white count goes above 500. We can then allay our concerns about his PICC line by removing it and stopping his remaining antibiotics. My only concern about the patient the last couple days has been his cholestatic hepatitis. This can rarely be due to posaconazole so I stopped that yesterday and ordered the ultrasound, which did not show any structural abnormalities such as hepatosplenic candidiasis or gallbladder or biliary tract disease. RECOMMENDATIONS: 1. Will continue to follow his LFTs on a daily basis. 2. Will continue to follow his CBC with diff on a daily basis now to see when he breaks about 500. 3. Once his neutrophil count is over 500, will stop the levofloxacin. 4. Unless Dr. Balbuena has any objection, once his neutrophil count is up and he is no longer platelet dependent, we should pull his PICC line as there is a great deal of irritation now under the dressing and I am concerned that that could become more of a problem than a benefit in the near future. 5. I will continue to follow this patient with you on a daily basis.
[2016-11-22 16:56] VITALS: BP 126/73; PULSE 77; O2SAT 100
[2016-11-22 19:45] VITALS: BP 158/83; PULSE 75; RESP 16; O2SAT 99
[2016-11-22] MEDS: LORazepam 1 mg Tablet PO PRN (21:11)
[2016-11-23 05:23] VITALS: BP 131/75; PULSE 87; RESP 16; O2SAT 98
[2016-11-23 05:48] LABS: Mean Corpuscular Hemoglobin 28.1 pg (27.0-35.0); Mean Corpuscular Volume 82.9 fL (81-100)
--- NOTE | 2016-11-23 07:28 | PCM.PNMED ---
Subjective Date of Service Nov 23, 2016 Subjective no acute events overnight - no reports of cp/sob/f - counts continue to improve Exam Vital Signs Vital Sign - Last Date Time Temp Pulse Resp B/P Pulse Ox O2 Delivery O2 Flow Rate FiO2 11/23/16 05:23 37.1 87 16 131/75 98 Room Air Intake and Output 11/22/16 11/22/16 11/23/16 Cumulative From/Thru 15:00 23:00 07:00 10/24/16 06:05 - 11/23/16 05:22 Intake Total 84 ml 1600 ml 1600 ml 056446 ml Output Total 1800 ml 2050 ml 527351 ml Balance 84 ml -200 ml -450 ml -1249 ml Intake Oral 1600 ml 1600 ml 47892 ml IV Total 84 ml 43899 ml Packed Cells 2100 ml Platelets 2740 ml Output Urine Total 1800 ml 2050 ml 489810 ml # Voids 16 # Bowel Movements 0 28 Exam Gen.- A+ O 3 no apparent distress. Eyes- open conjunctiva clear, pupils equal nonicteric ENT- ears normal, nose normal Neck- supple/trach midline CVS-rrr (-) murmur/gallop Lungs-no accessory muscle, CTA no wheezes or rhonchi GI- ntnd, soft, no rebound tenderness Musc- moving 4 no obvious deformity Neuro- cranial nerves II through XII intact to gross examination, nonfocal Skin- warm and dry, no rashes/lesions/wounds noted small petechia noted on dorsal aspect of feet somewhat stable/improving/resolving Psych- pleasant and appropriate IVs and Medications Medications Reviewed: Medications were reviewed in detail Lab and Diagnostics Result Diagram: 11/23/1651911/23/1620 X-Rays, CTs and MRIs PROCEDURE: X-RAY CHEST ONE VIEW, PORTABLE ([id number]) INDICATIONS: 71 year-old male with neutropenic fevers. TECHNIQUE: One view of the chest was acquired. COMPARISON: None. FINDINGS: Surgical changes and devices: Right PICC is present, with tip in the upper superior vena cava. Lungs and pleura: No pleural effusions or pneumothorax. Lungs are clear. Mediastinum: Mediastinal contours appear normal. Heart size is normal. There is aortic atherosclerosis. Bones and chest wall: No suspicious bony lesions. Overlying soft tissues appear unremarkable. IMPRESSION: No acute cardiopulmonary disease. Dictated by: Shawn Marcial M.D. on 10/24/2016 at 7:29 Approved by: Shawn Marcial M.D. on 10/24/2016 at 7:29 Additional Diagnostics PROCEDURE: US SOFT TISSUE OF HEAD OR NECK SONOGRAM INDICATIONS: 71 year-old male with neutropenic fevers and neck swelling. Assess for abscess. TECHNIQUE: Real-time scanning was performed of the neck region of interest, with image documentation. COMPARISON: None. FINDINGS: In the region of interest, no fluid collections identified to suggest abscess. Normal-appearing sternocleidomastoid muscles are identified. No enlarged lymph nodes identified. IMPRESSION: No sonographic evidence for neck abscess. Dictated by: Shawn Marcial M.D. on 10/24/2016 at 8:02 Approved by: Shawn Marcial M.D. on 10/24/2016 at 8:03 Assessment & Plan 71 yo M w/ recent hospitalization 10/08-10/19 with newly diagnosed AML s/p induction ctx, pseudomonas bacteremia p/w fever with neck started 2days ago. 11/15 meeting medically complex patient who is currently stable 11/17 patient continues to be stable. Platelets trickled down, some diarrhea and a little bit frustrated that C. difficile has not been obtained properly.. Continuing to wait for marrow recovery. Repeat bone marrow per heme/ on, antibiotics per infectious disease thank you. 11/18 low-grade fever once overnight, no other symptoms, heme/on low tolerance to expand antibiotic prophylaxis, ID following major concern PICC line site, no action at present. Continuing to await bone marrow recovery. 11/19 still low-grade fever, if LFTs bump checked for cholecystitis 11/20 labs ordered, transfusing 1 unit PRBCs and 1 unit aphareised platelets pt symptomatic , checking cbc for plt bump 1hr s/p plts. Pt denies epidydimits sx. Complaints of fatigue may be related to anemia but also possibly hyponatremia. AML with severe neutropenia, dxed in 10/12/2016, CBC on 10/29 showed concerning 20 % blast, he has completed induction chemo that was done for 7 days, started on . -Per oncology thank you Dr. Ferreira, bone marrow is planned for Wednesday 11/22, counts improving Chronic hyponatremia- resolved 11/23 - hydrochlorothiazide, on admit - Continue to monitor every few days -Checking Bnp, Ur Na 35, probably SIADH patient does not appear volume overloaded, 11/19 -stoppe fluids with correction from 124--> 134 Thrombocytopenia, POA - he was transfused several units of platelets, 1more U 11/19 plts 13, no overt bleeding petechiae stable/improving on feet -- Continue to monitor with daily labs Chronic anemia, POA -Patient received 2 units of PRBC on 11/08/16, 1 unit 11/19 -Continues to trickled down as we await marrow recovery Neutropenic fever, recent pseudomonal bacteremia- Levaquin/posaconazole 11/15- per ID thank you Dr. Hackett following -posaconazole dc'd 11/21 as possible etiology for cholestatic labs -Blood cultures negative to date - MRSA negative -Cryptococcus antigen negative -Galactomannan Ag, and fungal antibodies negative -Consider checking epididymitis on a periodic basis: clinically improved - Rechecked this on 11/13/16 and he did not appear to have any erythema, swelling, tenderness Hypertension SBP 123-134 11/19 -Patient's hydralazine was reduced to 10 mg 3 times a day and 10 mg daily at bedtime due to drop in blood pressure in a.m. -Continue diltiazem 180 mg daily Diarrhea onset 11/12/16: Appears to have resolved after 2 days. Stool culture ordered is still outstanding Macular diffuse rash over chest and abdomen onset 11/14/16: Much improved 11/15 -- This appears to be related to his recent diarrhea, likely due to viral infection. possible drug rash per Dr. Hackett, he asked for meropenem to be discontinued as this may have caused the rash. -- Started Levaquin by mouth [address] Hackett 11/15, plan to dc once anc> 500 PICC line finding: notified by infusion services that the patient's PICC line is out by 4 cm now at the brachiocephalic junction. Left a message for oncology. The patient's oncologist is aware of the conversation he had with the patient. Newly found bilateral epididymitis on US testicle, on 10/28, unclear clinical significance of this, possible leukemic infiltration, stable, unlikely new source of infection and patient also covered well with abx. - Negative for acute infectious findings Disposition: He will be monitored until his cell counts normalize in the hospital for oncology diet:regular as tolerate dvt ppx:SCD Pain Evaluation: Adequate Pain Control GI Prophylaxis: Proton Pump Inhibitor VTE Prophylaxis: Other (low plateletet/bleeding risk) VTE Mechanical Devices: Intermittant Pneumatic CD Resuscitation Status: CPR: Attempt Resuscitation Time spent 30 minutes spent with eval and mgmt Jag Serrano DO Nov 23, 2016 07:28
[2016-11-23] MEDS ORDERED: Pantoprazole 20 mg ER24 Tablet PO SCH (07:30)
[2016-11-23 07:49] LABS: EOSINOPHILS % (AUTO) 0 % (0-5)
[2016-11-23 08:39] LABS: BASOPHILS % (AUTO) 0 % (0-3); MONOCYTES % (AUTO) 21 % (4-12); NEUTROPHILS % (AUTO) 34 % (40-74)
--- NOTE | 2016-11-23 08:45 | PROG NOTE ---
[address] [address] PROGRESS NOTE PATIENT: JEFF AMEZCUA : 1945 MR#: [id number] ADMIT: 10/24/2016 JOB ID: [id number] DATE: 11/23/2016 SUBJECTIVE: The patient is a 71-year-old gentleman with acute myelogenous leukemia, status post re-induction chemotherapy. Today is day 24 since he started re-induction treatment. No fevers. No acute concerns. He underwent bone marrow biopsy and aspirate studies yesterday. Results are still pending. Cultures have been negative. OBJECTIVE: Vitals: T 37.1, P 87, R 16, BP 131/75. HEENT: Conjunctivae slightly pale. Mucous membranes moist. No oral lesions. Nodes: No adenopathy in the neck, axilla, or groin. Chest: Clear. Cardiac exam: Regular rate and rhythm with normal S1, S2. Abdomen: Soft, nontender, with normoactive bowel tones. No splenomegaly or masses. Extremities: No edema. 2+ distal pulses. No calf tenderness. LABORATORIES: WBC 1.0, neutrophils-pending, hemoglobin 9.5, hematocrit 27.7%, platelets 67,000. BUN 9, creatinine 0.62, glucose 107. ASSESSMENT AND PLAN: Acute myelogenous leukemia, day 24 status post re-induction chemotherapy: Clinically stable. Hematologic parameters are recovering. Await differential of his white cell count. Await results of bone marrow studies from yesterday. The neutropenia is resolving. If his absolute neutrophil count is over 500, then all antibiotics could be discontinued, and his PICC line removed. I anticipate he will be discharged home. In that event, please schedule laboratory studies in the [facility] on , including CBC differential, platelets and CMP. In addition, please schedule a followup visit next Tuesday, November 29, 2016, in the [facility] with either Dr. Balbuena or the nurse practitioner.
[2016-11-23] MEDS: Multivit-Miner-Folic Acid-Iron Tablet PO SCH (09:29)
[2016-11-23] MEDS: Diltiazem CD 180 mg ER24 Capsule PO SCH (09:29)
[2016-11-23] MEDS: Nystatin 100,000 Unit/mL 5 mL Suspension PO SCH ×2 (09:30→13:29)
--- NOTE | 2016-11-23 11:57 | PCM.DIMED ---
Discharge Instructions Date of Service Nov 23, 2016 Dates of Hospitalization Oct 24, 2016 at 08:54 Discharge Diagnosis Discharge Diagnosis Newly diagnosed AML on 10/12, status post induction therapy Pancytopenia status post induction chemotherapy started on 10/30 Neutropenic fever with recent pseudomonal bacteremia Thrombocytopenia necessitating transfusion of platelets and neutropenia Hypertension Acute diarrhea, resolved Macular diffuse rash possibly medication induced Acute epididymitis on ultrasound, 10/28, resolved Medication Instructions Stop antibiotics per infectious disease and Dr. Balbuena of oncology Await results of bone marrow studies from yesterday. The neutropenia is resolving. Schedule laboratory studies in the Cancer Center on , including CBC differential, platelets and CMP. schedule a followup visit next Tuesday, November 29, 2016, in the Cancer Center with either Dr. Balbuena or the nurse practitioner. Test Results X-Rays, CTs and MRIs PROCEDURE: X-RAY CHEST ONE VIEW, PORTABLE ([id number]) INDICATIONS: 71 year-old male with neutropenic fevers. TECHNIQUE: One view of the chest was acquired. COMPARISON: None. FINDINGS: Surgical changes and devices: Right PICC is present, with tip in the upper superior vena cava. Lungs and pleura: No pleural effusions or pneumothorax. Lungs are clear. Mediastinum: Mediastinal contours appear normal. Heart size is normal. There is aortic atherosclerosis. Bones and chest wall: No suspicious bony lesions. Overlying soft tissues appear unremarkable. IMPRESSION: No acute cardiopulmonary disease. Dictated by: Shawn Marcial M.D. on 10/24/2016 at 7:29 Approved by: Shawn Marcial M.D. on 10/24/2016 at 7:29 Additional Diagnostics PROCEDURE: US SOFT TISSUE OF HEAD OR NECK SONOGRAM INDICATIONS: 71 year-old male with neutropenic fevers and neck swelling. Assess for abscess. TECHNIQUE: Real-time scanning was performed of the neck region of interest, with image documentation. COMPARISON: None. FINDINGS: In the region of interest, no fluid collections identified to suggest abscess. Normal-appearing sternocleidomastoid muscles are identified. No enlarged lymph nodes identified. IMPRESSION: No sonographic evidence for neck abscess. Dictated by: Shawn Marcial M.D. on 10/24/2016 at 8:02 Approved by: Shawn Marcial M.D. on 10/24/2016 at 8:03 Diet No restrictions Activity No restrictions Call your provider Fever or Chills, Shortness of breath, Bleeding, Chest pain, Vomitting, Excessive diarrhea, Weakness (unilateral) Patient Instructions Stop antibiotics per infectious disease and Dr. Balbuena of oncology Await results of bone marrow studies from yesterday and will be discussed a follow-up visit, see below. The neutropenia is resolving after your induction chemotherapy. Schedule laboratory studies in the Cancer Center on , including CBC differential, platelets and CMP. schedule a followup visit next Tuesday, November 29, 2016, in the Cancer Center with either Dr. Balbuena or the nurse practitioner. Follow-up plan As above, follow-up with the [facility] on , 11/25, including a blood test: CBC differential, platelets and CMP. Also, please schedule a followup visit next Tuesday, November 29, 2016, in the [facility] with either Dr. Balbuena or the nurse practitioner. Follow-up Provider: Sai Balbuena MD Follow-up with PCP in: Other (please schedule a f/u on ) Jag Serrano DO Nov 23, 2016 11:49
[2016-11-23] MEDS ORDERED: LORA-303 PO (11:59)
[2016-11-23 12:28] VITALS: BP 125/68; PULSE 77; RESP 16; O2SAT 100
--- NOTE | 2016-11-23 13:14 | PCM.DC.MED ---
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 Jorge Luis Hackett infectious disease Dr. Amos oncology Procedures XRay, CTs & MRIs PROCEDURE: X-RAY CHEST ONE VIEW, PORTABLE ([id number]) INDICATIONS: 71 year-old male with neutropenic fevers. TECHNIQUE: One view of the chest was acquired. COMPARISON: None. FINDINGS: Surgical changes and devices: Right PICC is present, with tip in the upper superior vena cava. Lungs and pleura: No pleural effusions or pneumothorax. Lungs are clear. Mediastinum: Mediastinal contours appear normal. Heart size is normal. There is aortic atherosclerosis. Bones and chest wall: No suspicious bony lesions. Overlying soft tissues appear unremarkable. IMPRESSION: No acute cardiopulmonary disease. Dictated by: Shawn Marcial M.D. on 10/24/2016 at 7:29 Approved by: Shawn Marcial M.D. on 10/24/2016 at 7:29 Abdominal ultrasound IMPRESSION: 1. Pancreatic cyst in the uncinate process region is again noted. The cystic area in the junction of body and tail on prior CT imaging is not seen sonographically. 2. Mild splenomegaly, unchanged. Dictated by: Yonis Cannon M.D. on 11/22/2016 at 8:53 Other Diagnostics PROCEDURE: US SOFT TISSUE OF HEAD OR NECK SONOGRAM INDICATIONS: 71 year-old male with neutropenic fevers and neck swelling. Assess for abscess. TECHNIQUE: Real-time scanning was performed of the neck region of interest, with image documentation. COMPARISON: None. FINDINGS: In the region of interest, no fluid collections identified to suggest abscess. Normal-appearing sternocleidomastoid muscles are identified. No enlarged lymph nodes identified. IMPRESSION: No sonographic evidence for neck abscess. Dictated by: Shawn Marcial M.D. on 10/24/2016 at 8:02 Approved by: Shawn Marcial M.D. on 10/24/2016 at 8:03 Brief History History of present illness as per admitting physician: 71 yo M w/ recent hospitalization 10/08-10/19 with newly diagnosed AML s/p induction ctx, pseudomonas bacteremia, E.Fecalis UTI p/w fever with neck started 2days ago. Of note, pt was initially admitted on 10/08 with unresolving URI sx, not improved with oral abx, abdominal pain, vomiting, diarrhea, labs had [id number] with over 90% blasts, underwent BM biopsy, dxed AML, finished induction CTx, hospital course complicated by pseudomonas bacteremia,E.Fecalis UTI. pt was treated with vancomycin, meropenem, later switched to cipro 500 bid. Pt also received acyclovir, nystatin, posaconazole and d/zeeshan with these meds. Since patient left the hospital 5 days ago, patient was doing okay, eating well with good appetite, patient was taking all of his meds including ciprofloxacin, acyclovir, antifungals then starting having low-grade temperature since 3days ago, 100.4, few times, pt also noticed itchiness around his neck without difficulty swallowing, the past 2 days, itchiness has progressed to severe burning with redness, patient developed persistent fever at home up to 101.5 last night, called Dr. Stephens, recommended to come to ED. pt also had mild pain when he swallowed on Rt lower side of neck, but felt pain is more superficial, burning on his neck skin. denied posterior neck pain, headache, dizziness, cough, sputum, diarrhea-last BM 2days ago constipated, no back pain, no pain on s/p BMB area, no pain on PICC line site. pt denied sick contacts, family was very cautious about hygiene at home. no dysuria/urgency/frequency. In ED, VS 151/78, 99, 16,39.1, 100% on RA, pt looked distressed, labs showed worsening leukopenia wbc0.2, persistent severe thrombocytopenia 9 to 18k, mildly worsened hyponatremia, procal0.08, lactate1.3, stable creatinine. CXR/UA -unremarkable. BCX sent, received vancomycin, meropenem. US of neck didn't show abscess, no reactive LAD. During the interview on OSC, pt looked weak, wouldn't want to speak much, although not confused, c/o severe burning pain on neck, not controlled with [id number], ASSESSMENT AND PLAN from on 10/19 De josé miguel acute myelogenous leukemia: The patient presented with an initial white count over 200,000, with over 90% blasts. 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 FISH studies for APL were negative. He received three days of idarubicin from October 11 through October 13, and seven days of infusional leonor-C, completed around midnight last night. White cell count fell from an initial level of 216.8, to the current level of 0.6. He has required transfusion support with Leuko-poor irradiated packed red blood cells and platelets. No indication for transfusion support today. He had initial blood cultures that were positive for Pseudomonas aeruginosa, and has completed 10 days of antibiotic therapy with meropenem, remaining afebrile throughout. Given his stable clinical status, I believe he could be safely discharged to outpatient status, with followup in the Cancer Center tomorrow for laboratory studies including CBC, differential, platelets, and type and cross. CBC, differential, platelets should be repeated every Tuesday, Tuesday and Tuesday. Please schedule followup with Dr. Balubena at the Cancer Center next Tuesday. The patient's IV antibiotics can be discontinued, but I recommend prescriptions as an outpatient for Cipro 500 mg by mouth twice daily and acyclovir 200 mg by mouth three times daily. He was advised to call immediately in the event of fevers or signs of active infection, in which case he would require hospitalization for management of febrile neutropenia. In addition, he was advised to call immediately in the event of severe shortness of breath, bleeding or bruising, which might require further transfusion support. Anticipate repeat bone marrow studies in about two weeks to assess remission status. In the event that he had evidence of residual leukemia, he would be readmitted to the hospital for re-induction chemotherapy. If he is in remission, then future consolidation chemotherapy would be arranged. Hospital Course 71 yo M w/ recent hospitalization 10/08-10/19 with newly diagnosed AML s/p induction ctx, pseudomonas bacteremia p/w fever with neck started 2days ago. 11/15 meeting medically complex patient who is currently stable 11/17 patient continues to be stable. Platelets trickled down, Continuing to wait for marrow recovery. Repeat bone marrow per heme/on, antibiotics per infectious disease thank you. 11/18 low-grade fever once overnight, no other symptoms, heme/on low tolerance to expand antibiotic prophylaxis, ID following major concern PICC line site, no action at present. Continuing to await bone marrow recovery. 11/19 still low-grade fever, if LFTs bump checked for cholecystitis 11/20 labs ordered, transfusing 1 unit PRBCs and 1 unit aphareised platelets pt symptomatic , checking cbc for plt bump 1hr s/p plts. Pt denies epidydimits sx. Complaints of fatigue may be related to anemia but also possibly hyponatremia. AML with severe neutropenia, dxed in 10/12/2016, CBC on 10/29 showed concerning 20 % blast, he has completed induction chemo that was done for 7 days, started on . -Per oncology thank you Dr. Ferreira, bone marrow completed Wednesday 11/22, counts improving - await bone marrow results next week in follow-up, currently patient is hemodynamically stable with adequate oxygenation and is afebrile. Both infectious disease and oncology have considered patient stable enough for discharge and all antibiotics and antifungals and antivirals have been stopped. -Patient will have follow-up at the cancer center this and Dr. Balbuena would like patient to follow up on November 29's office with himself or with a nurse practitioner. Follow-up CBC with differential, CMP will be ordered at discharge with a paper lab slip to be completed for visit at the cancer center - Patient were referred to the cancer resource Center and continue follow- up with support groups are recommended. Also have given patient short course of Ativan when necessary for sleep/anxiety in the evenings Chronic hyponatremia- resolved 11/23 - hydrochlorothiazide, on admit - Continue to monitor every few days -Checking Bnp, Ur Na 35, probably SIADH patient does not appear volume overloaded, 11/19 -stoppe fluids with correction from 124--> 134 LFT elevation, possibly secondary to posaconazole, now discontinued - Patient with alkaline phosphatase and LFT elevation, negative ultrasound for cholecystitis/stones - We will follow and trend, repeat CMP at follow-up visit, but given no clinical symptoms of right upper quadrant pain and clinical improvement, the patient was deemed stable for discharge today Thrombocytopenia, POA - he was transfused several units of platelets, 1more U 11/19 plts 13 increasing to 67 at the day of discharge, no overt bleeding petechiae stable/ improving on feet -- Repeat platelets with CBC for this appointment at cancer Center Chronic anemia, POA -Patient received 2 units of PRBC on 11/08/16, 1 unit 11/19 -Continues to trickled down as we await marrow recovery Neutropenic fever, recent pseudomonal bacteremia- Levaquin/posaconazole 11/15- per ID thank you Dr. Hackett during hospitalization and patient did not have any positive blood cultures, afebrile time of discharge, last low-grade fever was on 11/20 -posaconazole dc'd 11/21 as possible etiology for cholestatic labs -Blood cultures negative to date - MRSA negative -Cryptococcus antigen negative -Galactomannan Ag, and fungal antibodies negative Hypertension SBP 123-134 11/19 -Patient's hydralazine was reduced to 10 mg 3 times a day and 10 mg daily at bedtime due to drop in blood pressure in a.m. -Continue diltiazem 180 mg daily Diarrhea onset 11/12/16: Appears to have resolved after 2 days. Stool culture ordered is still outstanding Macular diffuse rash over chest and abdomen onset 11/14/16: Much improved 11/15 -- This appears to be related to his recent diarrhea, likely due to viral infection. possible drug rash per Dr. Hackett, he asked for meropenem to be discontinued as this may have caused the rash. -- Started Levaquin by mouth [address] Hackett 11/15, plan to dc once anc> [address] - [address] for patient was admitted, discontinued at discharge Acute bilateral epididymitis on US testicle, on 10/28, unclear clinical significance of this, possible leukemic infiltration, stable, unlikely new source of infection and patient also covered well with abx. - Negative for acute infectious findings - clinically improved - Rechecked this on 11/13/16 and he did not appear to have any erythema, swelling, tenderness Patient will be discharged home with , with follow-up as noted above. Exam Vital Signs (Last) Date Time Temp Pulse Resp B/P Pulse Ox O2 Delivery O2 Flow Rate FiO2 4/4/17 12:28 36.8 77 16 125/68 100 Room Air Exam Gen.- A+ O 3 no apparent distress. Eyes- open conjunctiva clear, pupils equal nonicteric ENT- ears normal, nose normal Neck- supple/trach midline CVS-rrr (-) murmur/gallop Lungs-no accessory muscle, CTA no wheezes or rhonchi GI- ntnd, soft, no rebound tenderness Musc- moving 4 no obvious deformity Neuro- cranial nerves II through XII intact to gross examination, nonfocal Skin- warm and dry, no rashes/lesions/wounds noted small petechia noted on dorsal aspect of feet somewhat stable/improving/resolving Psych- pleasant and appropriate Test 10/24/16 06:30 10/24/16 08:20 10/29/16 05:32 10/29/16 11:02 Erythrocyte Sedimentation Rate 52mm/hr (0-30) Lactic Acid Level 1.3mmol/L (0.4-2.0) C-Reactive Protein 5.7mg/dL (0.0-0.5) Urine Color Yellow (YELLOW) Urine Appearance Clear (CLEAR,HAZY) Urine pH 7.0 (5.0-8.0) Urine Specific Bricelyn 1.016 (1.003-1.035) Urine Protein 30mg/dL (NEG,TRACE) Urine Glucose (UA) Negativemg/dL (NEGATIVE) Urine Ketones Negativemg/dL (NEGATIVE) Urine Occult Blood Small (NEGATIVE) Urine Nitrite Negative (NEGATIVE) Urine Bilirubin Negative (NEGATIVE) Urine Urobilinogen Normalmg/dL (NORMAL) Urine Leukocyte Esterase Negative (NEGATIVE) Urine RBC 0-2/hpf (0-2) Urine WBC 0-5/hpf (0-5) Urine Epithelial Cells None/hpf (NONE-MOD) Urine Crystals None seen (NONE SEEN) Urine Bacteria None/hpf (NONE-FEW) Urine Hyaline Casts None/lpf (NONE) Urine Granular Casts None seen (NONE SEEN) Urine Waxy Casts None seen (NONE SEEN) Urine Red Blood Cell Casts None seen (NONE SEEN) Urine White Blood Cell Casts None seen (NONE SEEN) Urine Mucus None seen (None Seen) Urine Trichomonas None seen (NONE SEEN) Urine Yeast None (NONE SEEN) Urinalysis Comment None Urine Culture Reflexed Not indicated Blast Cells % 20% (0-0) Posaconazole Level 0.5ug/mL (.) Test 10/29/16 15:32 10/30/16 13:28 10/31/16 05:45 11/04/16 04:00 Cryptococcus Antigen Negative (Negative) Hold Urine Received (Received) Vancomycin Level Trough 14.6mcg/mL Phosphorus Level 3.1mg/dL (2.5-4.9) Test 11/06/16 05:00 11/19/16 04:15 11/19/16 10:30 11/19/16 16:57 Uric Acid 1.7mg/dL (2.6-7.2) Gamma Glutamyl Transpeptidase 72IU/L (0-65) Procalcitonin 0.19ng/mL (0.00-0.08) Aspergillus galactomannan Antigen 0.05Index (0.00-0.49) Urine Random Sodium 37mEq/L Test 11/20/16 05:30 11/21/16 05:15 11/22/16 04:00 11/23/16 05:20 Pro-B-Type Natriuretic Peptide 453.9pg/mL (0-376) Hematology Comments Magnesium Level 1.5mg/dL (1.6-2.6) Total Bilirubin 0.4mg/dL (0.0-1.2) Direct Bilirubin < 0.2mg/dL (0.0-0.3) Aspartate Amino Transf (AST/SGOT) 64U/L (0-50) Alanine Aminotransferase (ALT/SGPT) 143U/L (0-44) Alkaline Phosphatase 226U/L (25-160) Total Protein 5.1g/dL (6.4-8.4) Albumin 3.0g/dL (3.4-5.0) White Blood Count 1.0th/mm3 (3.8-10.1) Red Blood Count 3.34mil/mm3 (4.40-5.80) Hemoglobin 9.4g/dL (13.8-17.2) Hematocrit 27.7% (41.0-50.0) Mean Corpuscular Volume 82.9fL (81-100) Mean Corpuscular Hemoglobin 28.1pg (27.0-35.0) Mean Corpuscular Hemoglobin Concent 33.9% (32.0-37.0) Red Cell Distribution Width 13.1% (12.3-15.4) Platelet Count 67bil/L (150-400) Neutrophils (%) (Auto) 34% (40-74) Lymphocytes (%) (Auto) 23% (14-46) Monocytes (%) (Auto) 21% (4-12) Eosinophils (%) (Auto) 0% (0-5) Basophils (%) (Auto) 0% (0-3) Absolute Neutrophils (auto) 0.5th/mm3 (1.4-7.0) Band Neutrophils % 7% (1-5) Metamyelocytes % 5% (0-0) Myelocytes % 10% (0-0) Sodium Level 134mEq/L (134-144) Potassium Level 3.7mEq/L (3.5-5.2) Chloride Level 98mEq/L (97-108) Carbon Dioxide Level 22mmol/L (18-29) Blood Urea Nitrogen 9mg/dL (8-27) Creatinine 0.62mg/dL (0.76-1.27) Estimat Glomerular Filtration Rate 135mL/min (>59) Glucose Level 107mg/dL (60-99) Calcium Level 8.6mg/dL (8.5-10.1) Microbiology Results Negative C. difficile on 11/18 Negative blood cultures and negative MRSA screen Discharge Medications Discharge Medications Cholecalciferol (Vitamin D3) (Vitamin D3) 4,000 Unit Capsule 4,000 UNIT PO DAILY (Reported) Diltiazem ER (Cartia XT) 120 Mg Cap.er.24h 120 MG PO QAM (Reported) Omeprazole (Omeprazole) 20 Mg Capsule.dr 20 MG PO QAM (Reported) Phosphorus (Phospha 250 Neutral Tablet) 250 Mg Tablet 250 MG PO BID Prescribed by: NICOLETTE PEÑA MD As needed Acetaminophen (Tylenol Arthritis) 650 Mg Tablet.er 1,300 MG PO TID PRN PRN For Pain (Reported) Clobetasol Propionate (Clobetasol Propionate) 15 Gm Oint...g. 1 APPLIC TOPICAL DAILY PRN PRN scalp itching (Reported) Lorazepam (Ativan) 1 Mg Tablet 0.5 MG PO HS PRN PRN Insomnia Prescribed by: EDDIE BUTTS DO Sildenafil Citrate (Viagra) 100 Mg Tablet 50 MG PO DAILY PRN PRN for sexual activity (Reported) Additional med instructions Stop antibiotics per infectious disease and Dr. Balbuena of oncology Await results of bone marrow studies from yesterday. The neutropenia is resolving. Schedule laboratory studies in the Cancer Center on , including CBC differential, platelets and CMP. schedule a followup visit next Tuesday, November 29, 2016, in the [facility] with either Dr. Balbuena or the nurse practitioner. Followup Plan Follow-up plan As above, follow-up with the Cancer Center on , 11/25, including a blood test: CBC differential, platelets and CMP. Also, please schedule a followup visit next Tuesday, November 29, 2016, in the [facility] with either Dr. Balbuena or the nurse practitioner. Discharge Diet: No restrictions Discharge Activity: No restrictions Patient Instructions Stop antibiotics per infectious disease and Dr. Balbuena of oncology Await results of bone marrow studies from yesterday and will be discussed a follow-up visit, see below. The neutropenia is resolving after your induction chemotherapy. Schedule laboratory studies in the Cancer Center on , including CBC differential, platelets and CMP. schedule a followup visit next Tuesday, November 29, 2016, in the Cancer Center with either Dr. Balbuena or the nurse practitioner. Follow-up Provider: Sai Balbuena MD Follow-up with PCP in: Other (please schedule a f/u on ) Time spent 45 minutes to evaluation management including discharge of this patient copies to: Bob Velarde MD; Sai Balbuena MD, David DO Nov 23, 2016 13:14
--- NOTE | 2016-11-23 13:17 | PROG NOTE ---
[address] [address] PROGRESS NOTE PATIENT: JEFF AMEZCUA : 1945 MR#: [id number] ADMIT: 10/24/2016 JOB ID: [id number] DATE: 11/23/2016 INFECTIOUS DISEASE FOLLOW UP NOTE: REASON FOR FOLLOW UP: Protracted neutropenia with episodes of sepsis. INTERVAL HISTORY: Today, the patient is in a fine mood. He is sitting up eating lunch. He denies fevers, chills or problems with the PICC line. No cough. No shortness of breath. No nausea, vomiting, diarrhea, and especially no right upper quadrant pain. PHYSICAL EXAMINATION: Reveals a comfortable gentleman sitting up. He is afebrile. Temperature 37.1, pulse 87, respiratory rate 16, blood pressure 131/75. He is saturating well on room air. Oral cavity unremarkable. Lungs clear. Abdomen soft and nontender. Liver extends about 1 cm below the right costal margin and is nontender. LABORATORIES: Include a white count which is now up to 1000, neutrophil count is 500 and there is also plenty of metamyelocytes and myelocytes in the blood indicative of recovering bone marrow. His platelets have also jumped dramatically in the last couple days, now 67,000. Creatinine stable at 0.62. His ALT continues to be elevated, now 143 which is a new high. His alk phos is 227 which is also increasing. The follow up galactomannan is negative. One last Fungitell is pending. There are no new cultures and they have all been reviewed. No new imaging since the ultrasound of the right upper quadrant which did not disclose any reason for his cholestatic hepatitis. IMPRESSION: This patient's white blood cells have finally recovered to the point where he has a neutrophil count of 500 and he is essentially ready for discharge. I remember we stopped the posaconazole prophylaxis prematurely a couple days ago out of concern that it might be causing his rising LFTs, but they continue to worsen so I doubt that his cholestatic hepatitis is on the basis of the antifungal drug. Likewise his levo has just been stopped as he is no longer neutropenic, though I do not think it is the cause of his cholestatic hepatitis. If it reverses in the next few days, I suppose that could be the etiology. This patient seemed out of the cottrell and his neutropenia and all antibiotics and antifungal drugs can safely be discontinued and that has already happened. With respect to his alk phos and cholestatic hepatitis, that will need to be followed as an outpatient. RECOMMENDATIONS: 1. No additional antibiotics. They have all been stopped. 2. Dr. Balbuena will be following the patient up in a couple days to check on his follow up bone marrow as well as his white count. 3. The PICC line will be pulled today. 4. Continued followup of his cholestatic hepatitis is, of course, indicated, and if worse came to worse, I suppose a liver biopsy would be the ultimate way to address this but hopefully, some watchful waiting and removal of all possible offending medications will lead to a correction. 5. ID will sign off. It has been a delight to care for this man during his 47 day odyssey which started off with Pseudomonas bacteremia in the setting of profound neutropenia.
[2016-11-23 13:37] LABS: Bilirubin, Direct < 0.2 mg/dL (0.0-0.3)
--- NOTE | 2016-11-24 11:32 | PATH ---
SURGICAL PATHOLOGY Attending Physician:Sai Balbuena M.D. ( CASE STATUS: Signed Out PATIENT NAME: JEFF AMEZCUA PID: [id number] : 1945 DATE COLLECTED:11/22/2016 18:45 SPECIMEN: 1: Bone Marrow, Aspiration 2: Bone Marrow, Biopsy 3: Bone Marrow, peripheral smear CLINICAL HISTORY: ACUTE MYELOBLASTIC LEUKEMIA, AML S/P RE-INDUCTION CHEMO, 7+3 FINAL DIAGNOSIS: Peripheral Blood: Pancytopenia with rare immature granulocytes and no identifiable blasts. Normal RBC and platelet morphology. Bone Marrow, Aspiration and Biopsy: Normocellular marrow with left-shifted myeloid and erythroid maturation and mildly atypical megakaryocytes consistent with reactive/regenerative changes. No increase in [id number] and [id number] blasts. Adequate stainable iron without ringed sideroblasts. No morphologic, immunophenotypic or flow cytometric evidence of persistent acute myeloid leukemia. ICD10 C92.00 NOTE: The bone marrow biopsy shows a regenerating marrow with normal cellularity and reactive/regenerative changes. There is no evidence of acute myeloid leukemia. In the current marrow, there is no definitive morphologic evidence of myelodysplasia, but given the flow cytometric findings of immunophenotypic abnormalities in the maturing granulocyte population, it is not possible to entirely exclude the possibility of a background myelodysplastic syndrome. Correlation with the patient' s prior clinical and hematologic history would be helpful in this evaluation. Flow Interpretation: [id number] Bone marrow aspirate: No immunophenotypic evidence of the abnormal myeloid blast population identified in the bone marrow prior to chemotherapy; immunophenotypic abnormalities in the maturing granulocyte population at least partially due to a chemotherapy effect; persistence of an underlying myelodysplastic syndrome cannot be totally excluded; see Comment. Flow Comment: Flow cytometric analysis of the bone marrow aspirate after lysis of the erythroid population shows 9% lymphocytes, 8% monocytes, 80% maturing granulocytes and 11.4% cells in the blast gate as determined from the CD45/sidescatter plot. The maturing myeloid population exhibits dysmaturational abnormalities which are best demonstrated by the CD13/CD16 plot. Additionally, there is aberrant expression of CD56 on about 50% of the maturing granulocytes, and CD10 expression on maturing granulocytes is markedly diminished whereas CD64 expression is increased. Blasts expressing CD34 comprise 3.6% of the total leukocytes analyzed. The abnormal myeloid blast population identified in the bone marrow prior to treatment and characterized by uniform expression of CD117 with abnormal decreased expression of CD34, CD38 and HLA-DR (see prior flow cytometry report [id number] from 10/11/2016) is not detected in the current analysis. No abnormal lymphocyte population is identified. The dysmaturational changes observed in the maturing granulocyte population together with aberrant expression of CD56 and diminished expression of CD10 and increased expression of CD64 are consistent with either a background of myelodysplasia or reactive/regenerative changes due to chemotherapy. Correlation with the marrow morphology is helpful in distinguishing between these two possibilities. Refer to the bone marrow report [id number] in which the details of the flow cytometric analysis are included. GROSS DESCRIPTION: RECEIVED: 20 BONE MARROW ASPIRATION SLIDES 2 PERIPHERAL BLOOD SMEARS 1 BIOPSY CORE IN FORMALIN 1 ASPIRATE CLOT IN FORMALIN 1 LAVENDER TOP TUBE 2 GREEN TOP TUBES ACCOMPANIED WITH THE SPECIMEN IS A REQUISITION FOR FLOW CYTOMETRY MICRO DESCRIPTION: Peripheral Blood: Review of the peripheral smear shows a marked pancytopenia with decreases in all hematopoietic lineages. Mature granulocytes are markedly decreased, and rare immature granulocytes are present, but no blasts are identified. Platelet and RBC morphology exhibit no significant morphologic abnormality. Bone Marrow: Sections from the marrow clot and from the bone core biopsy show marrow in which the overall hematopoietic cellularity averages 35%-40%. Megakaryocytes are increased and show reactive/regenerative changes with increased variation of megakaryocyte size and variable lobation of megakaryocyte nuclei. Clear-cut dysplastic megakaryocytes are not identified. Clusters of immature cells that would suggest an increase in blasts are not identified. The biopsy touch prep is preferred for cytologic evaluation of the marrow elements. The myeloid maturation is left shifted without dysplastic changes. Erythroid precursors exhibit a left shift, but no dyserythropoiesis is identified. A service center representative cell differential count shows 68.0% maturing myeloid, 26.9% erythroid, 1.0% lymphocytes, 0.5% plasma cells, and 3.5% blasts. IMMUNOHISTOCHEMISTRY: Immunohistochemistry is performed on the bone core biopsy to quantitate the abnormal myeloid blast markers that were identified in the patient's diagnostic bone marrow biopsy (see prior case [id number]). STAINRESULT CD34:Positive in up to 2%-3% of marrow cells. CD117: Positive in up to 2%-3% of marrow cells. ICD-9 CODES: CPT CODES: 1: 35917, 11012, 52509, 08880 2: 25994, 74887, 47185, 83053, 54863 3: 40961 Electronically Signed Out Nasim Santizo MD, PhD [facility] [address], [place] [address] Technical component performed at [facility], [address], [place], [address]
[2016-11-29] MEDS ORDERED: UBID100C16 PO (16:42)
[2016-11-29] MEDS ORDERED: CYAN250010 PO (16:42)
[2016-11-29] MEDS ORDERED: MAGN250T29 PO (16:42)
[2016-11-29] MEDS ORDERED: OMEG300C3 PO (16:42)
[2016-11-29] MEDS ORDERED: MULT-666 PO (16:42)
[2016-11-29] MEDS ORDERED: MAGN100T6 PO (16:42)
[2016-11-29] MEDS ORDERED: GLUC-120 PO (16:42)
[2016-12-15] MEDS ORDERED: LEVO500T16 PO (10:23)
[2017-01-31] MEDS ORDERED: ASCO-294 PO (12:29)
[2017-01-31] MEDS ORDERED: VIT1TABL83 PO (12:29)
[2017-01-31] MEDS ORDERED: LORA1TAB PO (17:03)
== END 2016-11-23 15:15 | disposition home or self-care (01) | DRG 808 ==
LOC: SED 06:03 → OSC 08:54
PROVIDERS: ADMIT Internal Medicine; ATTEND Internal Medicine
PROC: 30243R1 Transfusion of Nonautologous Platelets into Central Vein, Percutaneous Approach (ICD-10-PCS; principal; 2016-10-24)
PROC: 30243R1 Transfusion of Nonautologous Platelets into Central Vein, Percutaneous Approach (ICD-10-PCS; 2016-10-25)
PROC: 30243N1 Transfusion of Nonautologous Red Blood Cells into Central Vein, Percutaneous Approach (ICD-10-PCS; 2016-10-25)
PROC: 30243R1 Transfusion of Nonautologous Platelets into Central Vein, Percutaneous Approach (ICD-10-PCS; 2016-10-26)
PROC: 30243N1 Transfusion of Nonautologous Red Blood Cells into Central Vein, Percutaneous Approach (ICD-10-PCS; 2016-10-26)
PROC: 3E04305 Introduction of Other Antineoplastic into Central Vein, Percutaneous Approach (ICD-10-PCS; 2016-10-30)
PROC: 3E04305 Introduction of Other Antineoplastic into Central Vein, Percutaneous Approach (ICD-10-PCS; 2016-10-31)
PROC: 3E04305 Introduction of Other Antineoplastic into Central Vein, Percutaneous Approach (ICD-10-PCS; 2016-11-01)
PROC: 3E04305 Introduction of Other Antineoplastic into Central Vein, Percutaneous Approach (ICD-10-PCS; 2016-11-02)
PROC: 3E04305 Introduction of Other Antineoplastic into Central Vein, Percutaneous Approach (ICD-10-PCS; 2016-11-03)
PROC: 3E04305 Introduction of Other Antineoplastic into Central Vein, Percutaneous Approach (ICD-10-PCS; 2016-11-04)
PROC: 3E04305 Introduction of Other Antineoplastic into Central Vein, Percutaneous Approach (ICD-10-PCS; 2016-11-05)
PROC: 30243R1 Transfusion of Nonautologous Platelets into Central Vein, Percutaneous Approach (ICD-10-PCS; 2016-11-08)
PROC: 30243N1 Transfusion of Nonautologous Red Blood Cells into Central Vein, Percutaneous Approach (ICD-10-PCS; 2016-11-08)
PROC: 30243N1 Transfusion of Nonautologous Red Blood Cells into Central Vein, Percutaneous Approach (ICD-10-PCS; 2016-11-09)
PROC: 30243R1 Transfusion of Nonautologous Platelets into Central Vein, Percutaneous Approach (ICD-10-PCS; 2016-11-11)
PROC: 30243N1 Transfusion of Nonautologous Red Blood Cells into Central Vein, Percutaneous Approach (ICD-10-PCS; 2016-11-12)
PROC: 30243R1 Transfusion of Nonautologous Platelets into Central Vein, Percutaneous Approach (ICD-10-PCS; 2016-11-15)
PROC: 30243R1 Transfusion of Nonautologous Platelets into Central Vein, Percutaneous Approach (ICD-10-PCS; 2016-11-19)
PROC: 30243N1 Transfusion of Nonautologous Red Blood Cells into Central Vein, Percutaneous Approach (ICD-10-PCS; 2016-11-19)
PROC: 07DR3ZX Extraction of Iliac Bone Marrow, Percutaneous Approach, Diagnostic (ICD-10-PCS; 2016-11-22)
DX: D70.1 Agranulocytosis secondary to cancer chemotherapy (principal); A41.52 Sepsis due to Pseudomonas; L03.221 Cellulitis of neck; C92.Z0 Other myeloid leukemia not having achieved remission; E87.1 Hypo-osmolality and hyponatremia; R50.81 Fever presenting with conditions classified elsewhere; I10 Essential (primary) hypertension; D69.59 Other secondary thrombocytopenia; D64.81 Anemia due to antineoplastic chemotherapy; T45.1X5A Adverse effect of antineoplastic and immunosuppressive drugs, initial encounter; E87.79 Other fluid overload; B35.6 Tinea cruris; N45.1 Epididymitis; R19.7 Diarrhea, unspecified; K75.89 Other specified inflammatory liver diseases

== ENCOUNTER 2016-12-09 12:15 | Inpatient (IN) | payer MEDICARE, OTHER ==
[2016-12-09] VITALS (7 sets, daily range): BP systolic 128–153; BP diastolic 48–80; PULSE 67–79; RESP 18–19; O2SAT 96–100
[~2016-12-09] VITALS: Ht 180.3 cm; Wt 74.8 kg
[~2016-12-09 12:15] MED LIST changes: -ACYC200C PO; -CIPR-231 PO; +CYAN250010 PO; +GLUC-120 PO; +LORA-303 PO; +MAGN100T6 PO; +MULT-666 PO; -NYST1000 PO; +OMEG300C3 PO; -POSA200O PO; +UBID100C16 PO
[2016-12-09] MEDS ORDERED: CYAN500 PO (12:53)
[2016-12-09] MEDS ORDERED: MELA3TAB11 PO (12:54)
[2016-12-09] MEDS ORDERED: Ondansetron 2 mg/mL 2 mL Inj IVPUSH PRN (14:20)
[2016-12-09] MEDS ORDERED: LORazepam 0.5 mg Tablet PO PRN (14:20)
--- NOTE | 2016-12-09 14:21 | NUR ---
Admit To [facility] room 1018. I assumed care of pt at 13:30. Alert and oriented, denies pain and nausea. Pharmacist entering med orders. Hospitalist paged to inform of arrival.
[2016-12-09] MEDS ORDERED: oxyCODONE-Acetamin 10-325 mg Tablet PO PRN (14:25)
[2016-12-09] MEDS ORDERED: Polyethylene Glycol (PEG) 17 Gm Powder PO PRN (14:55)
[2016-12-09] MEDS ORDERED: Alum-Mag Hydrox-Simeth 30 mL Suspension PO PRN (14:55)
[2016-12-09] MEDS ORDERED: Palonosetron 0.05 mg/mL 5 mL Inj IV ONE (15:00)
[2016-12-09] MEDS ORDERED: SODIUM CHLORIDE 0.9% IV ONE (15:00)
[2016-12-09] MEDS ORDERED: Clobetasol Prop 0.05% 15 Gm Ointment TOPICAL PRN (15:00)
[2016-12-09] MEDS ORDERED: [UNRECOGNIZED DRUG - OTHER] IV ONE (15:00)
[2016-12-09] MEDS ORDERED: Sodium Chloride LOK Flush 10 mL Syringe IVFLUSH PRN (15:10)
--- NOTE | 2016-12-09 15:18 | CONS ---
[address] [address] CONSULTATION REPORT PATIENT: JEFF AMEZCUA : 1945 MR#: [id number] ADMIT: 12/09/2016 JOB ID: [id number] DATE OF SERVICE: 12/09/2016 ONCOLOGY INPATIENT CONSULTATION: HISTORY OF PRESENT ILLNESS: The patient is a 71-year-old gentleman hospitalized for consolidation chemotherapy for acute myelogenous leukemia in remission. He was in his usual state of good health until the beginning of this year when he developed sinus symptoms with congestion and upper respiratory findings. He failed to respond to oral antibiotics, and subsequently had laboratory studies when fever andrew to over 100 degrees. Blood count on October 08, 2016 was 216.8, comprised almost entirely of myeloid blasts. He received induction chemotherapy with 7 days of SIMÓN-C and 3 days of idarubicin, followed by additional induction chemotherapy with another 7 days of SIMÓN-C and 3 days of idarubicin. He achieved a complete remission after his second course of induction chemotherapy. He had prolonged hospitalizations with episodes of febrile neutropenia. He had blood cultures from early in his course positive for Pseudomonas aeruginosa and a urine culture positive for enterococcus faecalis. His bone marrow aspirate on November 22, 2016 showed a normocellular marrow with left-shifted myeloid and erythroid maturation and mildly atypical megakaryocytes consistent with regenerative changes, but no evidence of CD 34 or CD 117-positive blasts. He is here today to begin consolidation chemotherapy with 5 days of SIMÓN-C and 2 days of idarubicin. No acute concerns at this time. PAST MEDICAL HISTORY: 1. 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 2. Hypertension. 3. Lumbar surgery with fusion of L4-L5-S1. 4. Bilateral hip replacement. 5. Tonsillectomy. 6. Bilateral inguinal hernia repair. 7. Hypospadia. 8. Cataracts. 9. Hyponatremia. ALLERGIES: 1. ATENOLOL. 2. DOXYCYCLINE. 3. AMLODIPINE. 4. CETIRIZINE. 5. HYDROCHLOROTHIAZIDE. 6. HYDROCODONE. 7. LISINOPRIL. 8. PIROXICAM. MEDICATIONS: 1. Compazine 10 mg p.o. q.4 hours p.r.n. 2. Zofran 8 mg IV q.6 hours p.r.n. 3. Lorazepam 0.6 mg p.o. or IV every 6 hours p.r.n. 4. Oxycodone/APAP 10/325 one tablet p.o. q.4 hours p.r.n. 5. Pantoprazole 20 mg p.o. daily. 6. Phospha 250 mg p.o. b.i.d. 7. Multivitamin daily. 8. Cholecalciferol 4000 units p.o. daily. 9. Diltiazem CD ER 120 mg p.o. daily. 10. Cyanocobalamin 2500 mcg p.o. daily. FAMILY HISTORY: Unspecified malignancy in his grandmother. SOCIAL HISTORY AND HABITS: The patient and his live in [place]. He was formerly in the and later worked at the [employer] in [place] where he worked in the [employer]. 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 He smoked briefly in the service, but quit in 1964. He rarely drinks alcohol, perhaps once or twice a year. REVIEW OF SYSTEMS: Rare headaches. No dizziness or disequilibrium. No recent fevers. No chills or sweats. No developing lymphadenopathy. No acute change in vision or hearing. No hoarseness or dysphagia. No shortness of breath or chest pain. Rare cough. Mild increased dyspnea with exertion. Rare GE reflux symptoms. No nausea, vomiting, diarrhea or constipation at this time. No bleeding or atypical bruising. No dysuria. No significant edema, but he has had edema during prior hospitalizations. No acute back pain, although he has a history of low back pain with prior lumbar surgery. No depression or anxiety. Remaining review of systems is unremarkable. PHYSICAL EXAMINATION: This is a pleasant, slightly older gentleman, in no acute distress. Vitals: T 36.5, P 79, R 19, BP 134/80. O2 saturation 99% on room air. HEENT: Conjunctivae slightly pale. Mucous membranes moist. No oral lesions. Nodes: No adenopathy in the neck, axilla or groin. Chest: Clear to auscultation and percussion throughout. Cardiac examination: Regular rate and rhythm with normal S1, S2. No murmurs, rubs or gallops. Abdomen: Soft, nontender. Normoactive bowel tones. No splenomegaly or masses. Extremities: There is a new PICC line in the left arm with some associated ecchymoses, 2+ distal pulses. No calf tenderness. No cyanosis or clubbing. No petechiae. Neuro: Alert and cooperative with no gross focal deficits. LABORATORIES: (December 06, 2016) WBC 5.8 with 49% neutrophils, 12% lymphocytes, 28% monocytes, 3% basophils, hemoglobin 11.1, hematocrit 34.6%, platelets 289,000. Sodium 137, potassium 4.3, BUN 12, creatinine 0.59, glucose 105. AST 21, ALT 23, alkaline phosphatase 123, total protein 6.0, albumin 3.9. 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 Bone marrow studies about three weeks ago show no evidence of residual leukemia. Nonetheless, without further consolidation chemotherapy, most of these patients will relapse. The best opportunity to achieve and maintain a complete remission is to administer consolidation chemotherapy. Premedicate with Aloxi, dexamethasone, and Emend. He will receive idarubicin 12 mg/m2 for a total dose of 24 mg idarubicin IV over 30 minutes on days 1 and 2, as well as cytarabine (SIMÓN-C) 100 mg/m2 for a total dose of 200 mg over 24 hours daily on days 1 through 5 of the current regimen. His last infusion of SIMÓN-C should be completed on December 14, 2016. If he is stable at that time, anticipate discharge at that time to continue monitoring and treatment in the outpatient setting. MTDD
[2016-12-09] MEDS: 0.9% Sodium Chloride 1,000 ML IV SCH (15:27)
[2016-12-09] MEDS: Dexamethasone Inj 10 MG in 0.9% Sodium Chloride 50 ML IV SCH (15:29)
[2016-12-09 15:43] LABS: Mean Corpuscular Hemoglobin 29.1 pg (27.0-35.0); Mean Corpuscular Volume 92.2 fL (81-100)
[2016-12-09] MEDS: SODIUM CHLORIDE 0.9% IV SCH ×2 (17:03→18:00)
[2016-12-09] MEDS: IDARUBICIN IV SCH (17:03)
[2016-12-09] MEDS: CYTARABINE IV SCH (18:00)
--- NOTE | 2016-12-09 18:10 | NUR ---
Chemo Premeds and Idarubicin administered. Cytarabine started. Medications checked with scrap chargerHAO. VSS, no s/s adverse effects. PICC line blood return checked prior to admin; patent.
[2016-12-09] MEDS: PHOSPHA NEUTRAL PO SCH (20:30)
[2016-12-09] MEDS: LORazepam 1 mg Tablet PO SCH (21:29)
--- NOTE | 2016-12-09 21:53 | PCM.HPMED ---
Subjective Date of Service Dec 09, 2016 Primary Provider: Admitting Physician: Amanda Currie DO Primary Care Physician: Bob Velarde MD Attending Physician: Amanda Currie DO Admit Status: Direct Admit Chief Complaint: Consolidation leukemia therapy History of Present Illness: This is a pleasant 71-year-old gentleman with past medical history of AML, HTN, BPH presenting as a direct admit for consolidation therapy. Dr. Sai Balbuena is his oncologist. Dr. Balbuena feels that Bone marrow studies about three weeks ago show no evidence of residual leukemia. Nonetheless, without further consolidation chemotherapy, most of these patients will relapse. The best opportunity to achieve and maintain a complete remission is to administermconsolidation chemotherapy. He is here for 5 days of therapy. His last set of labs were done on 12/06/16 and showed no concern for thrombocytopenia , his platelets and white count have recovered nicely. Patient currently denies fevers, chills, abdominal pain, back pain. He does have a mild rash over his arms and in the groin area say see it does not particularly itch. He denies diarrhea currently. He denies headaches nausea vomiting numbness and urinary symptoms all other ROS negative except as stated here in the history of present illness. Review of Systems: All review of systems negative except as stated in the history of present illness Allergies Coded Allergies: atenolol (Verified Allergy, Severe, hives, 12/09/16) doxycycline (Verified Adverse Reaction, Severe, abdominal cramping, ) amlodipine (Verified Adverse Reaction, Intermediate, ankle swelling, ) cetirizine (Verified Adverse Reaction, Intermediate, prostate issues, 12/09) hydrochlorothiazide (Verified Adverse Reaction, Intermediate, headache, ) hydrocodone (Verified Adverse Reaction, Intermediate, upset stomach, ) lisinopril (Verified Adverse Reaction, Intermediate, low sodium, 12/09/16) piroxicam (Verified Adverse Reaction, Intermediate, low iron, 12/09/16) oxycodone (Verified Adverse Reaction, Unknown, causes insomnia, 12/09/16) PMH Pertinent for AML, hypertension, hypospadias, rash, diverticular low cysts, BPH , hyponatremia, herpes labialis Surgical History Pertinent for bilateral hip replacements, spinal surgery for arthritis lash fusion of L4 L5-S1, bilateral inguinal hernia repair, tonsillectomy Family History Unspecified malignancy in grandmother Social History Hx Alcohol Use: No Hx Substance Use: No Smoking Status: Former Smoker Living Arrangement: with Family (this in [place]) Exam Vital Signs Vital Sign - Last Date Time Temp Pulse Resp B/P Pulse Ox O2 Delivery O2 Flow Rate FiO2 12/09/16 20:16 36.7 69 18 132/70 96 Room Air Exam General: NAD, laying in bed, pleasant and comfortable HEENT: NCAT, Eyes: [place] conjunctivae. No ptosis, PERRL Neck: No masses, trachea midline, no thyromegaly Lungs: CTA with normal respiratory effort, no crackles or wheezes CV: RRR, no murmurs/rubs/gallops, normal PMI GI: Soft, non-tender with no hepatosplenomegaly MSK: Normal gait and station, no digital cyanosis Skin: Warm and dry. Blanchable diffuse mild rash over arms and groin area Psych: A&O X3, with approprate affect Lab and Diagnostics Result Diagram: 12/09/16 1520 12/09/16 1520 Assessment & Plan Acute diagnosis #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 Dr. Sai Balbuena -- CBC CMP daily -- Enoxaparin 40 subcutaneous for DVT prophylaxis -- Premedicate with Aloxi, dexamethasone, and Emend. "He will receive idarubicin 12 mg/m2 for a total dose of 24 mg idarubicin IV over 30 minutes on days one and two, as well as cytarabine (SIMÓN-C) 100 mg/m2 for a total dose of 200 mg over 24 hours daily on days one through five of the current regimen. His last bag of SIMÓN-C should be completed on December 14, 2016." -- Continue patient's home medication oxycodone when necessary #2 hypertension, chronic -- Plan to continue patient's home medication Cardizem #3, present on admission: -- Patient will receive dexamethasone as part of his chemotherapy may help with the rash -- We will consider Zantac #4 insomnia chronic -- At bedtime melatonin -- Ativan when necessary #5 patient is on cyanocobalamin /B 12: Plan to continue CODE STATUS: Full code Diet: Gen. diet IV fluids locked Disposition: To home following 5 days of consolidation therapy with idarubicin and cytarabine per Dr. Balbuena GI Prophylaxis: Proton Pump Inhibitor Resuscitation Status: CPR: Attempt Resuscitation Amanda Currie DO Dec 09, 2016 21:53
[2016-12-10] VITALS (13 sets, daily range): BP systolic 128–160; BP diastolic 67–84; PULSE 65–77; RESP 16–18; O2SAT 98–100
[2016-12-10 04:54] LABS: BASOPHILS % (AUTO) 0.2 % (0-3); EOSINOPHILS % (AUTO) 0.1 % (0-5); MONOCYTES % (AUTO) 3.4 % (4-12); Mean Corpuscular Hemoglobin 29.6 pg (27.0-35.0); Mean Corpuscular Volume 90.3 fL (81-100); NEUTROPHILS % (AUTO) 88.4 % (40-74); Platelet Count 226 bil/L (150-400)
[2016-12-10 05:01] LABS: APPEARANCE,URINE CLEAR (CLEAR,HAZY); COLOR,URINE YELLOW (YELLOW); OCCULT BLOOD,URINE NEGATIVE (NEGATIVE); UROBILINOGEN,URINE NORMAL (NORMAL)
--- NOTE | 2016-12-10 05:07 | NUR ---
Chemo Chemo infusion continues, pt tolerating without problems. Pt is ambulatory independent in room, no c/o pain. Set up with saline rinses for oral care. Provided printed information for stem cell harvest and transplant related to pt questions. Hourly rounding ongoing.
[2016-12-10] MEDS: Pantoprazole 20 mg ER24 Tablet PO SCH (06:44)
[2016-12-10] MEDS: PHOSPHA NEUTRAL PO SCH ×2 (08:30→20:30)
[2016-12-10] MEDS ORDERED: CHOLECALCIFEROL 4000 UNIT PO SCH (08:30)
--- NOTE | 2016-12-10 09:05 | PROG NOTE ---
[address] [address] PROGRESS NOTE PATIENT: JEFF AMEZCUA : 1945 MR#: [id number] ADMIT: 12/09/2016 JOB ID: [id number] DATE: 12/10/2016 SUBJECTIVE: The patient is a 71-year-old gentleman with acute myelogenous leukemia in remission, hospitalized for consolidation chemotherapy with leonor-C and idarubicin. He received his initial treatment beginning last evening. He is doing well, with no acute concerns. No fevers. No nausea or vomiting. He has had some mild bruising associated with placement of a PICC line in his upper left arm yesterday. OBJECTIVE: Vitals: T 36.5, P 67, R 16, BP 148/84. HEENT: Conjunctivae slightly pale. Mucous membranes moist. No oral lesions. Nodes: No adenopathy in the neck or axillae. Chest: Clear throughout. Cardiac exam: Regular rate and rhythm with normal S1, S2. Abdomen: Soft, nontender. Normoactive bowel tones. Extremities: PICC line in the left arm, 2+ distal pulses. No calf tenderness. LABORATORIES: WBC 10.3 with 88% neutrophils, 5% lymphocytes, 3% monocytes, hemoglobin 11.0, hematocrit 33.5%, platelets 226,000. BUN 16, creatinine 0.48, glucose 150, calcium 10.2. Albumin 4.0, AST 21, ALT 21, alkaline phosphatase 102. 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 Proceed with scheduled treatment. He will receive day 2 of 2 idarubicin 12 mg/m2 for a total dose of 24 mg idarubicin IV over 30 minutes later today, and begin day 2of 5 continuous infusion leonor-C 100 mg/m2 per day for a total dose of 200 mg leonor-C over 24 hours daily. Bag two begins later today. His infusion should be completed late on December 14, 2016, at which time he will likely be discharged home, unless he is experiencing significant toxicities. There is some question as to whether he requires Lovenox injections during this hospitalization. I feel that as long as he does not exhibit any significant swelling in the left arm and continues to do walk regularly, there is no absolute indication for anticoagulation. MTDD
[2016-12-10] MEDS: Diltiazem CD 120 mg ER24 Capsule PO SCH (10:37)
[2016-12-10] MEDS: 0.9% Sodium Chloride 1,000 ML IV SCH (11:13)
[2016-12-10] MEDS: Omega-3 Fatty Acids 1,000 mg Capsule PO SCH (14:15)
[2016-12-10] MEDS: Dexamethasone Inj 10 MG in 0.9% Sodium Chloride 50 ML IV SCH (17:15)
[2016-12-10] MEDS: SODIUM CHLORIDE 0.9% IV SCH ×2 (17:53→18:59)
[2016-12-10] MEDS: IDARUBICIN IV SCH (17:53)
--- NOTE | 2016-12-10 18:06 | NUR ---
Social Work- Initial Assessment Data & Assessment: See Initial Assessment.EMR reviewed Pt is a case management readmission. Pt is a 71 year old male admitted 12/10/16 for consolidation Cytarabine per H&P. Pt's insurance is Medicare and [employer]. SW spoke with patient's , Carole Cummings [phone], at bedside regarding discharge plan, SW role explained and initial assessment complete. Patient's re-admit score is 4 highrisk. Pt has no VA or LTC benefits. Pt resides at home with his where he is independent with ADLs. Pt [place] walker at base and does not drive. Pt has used [facility] in the past and has no SNF history. Patient does not have any anticipated discharge needs. Pt to discharge home with via POV. SW provided phone number and plan on whiteboard. No anticipated discharge needs. SW will continue to follow if needs arise. Plan: Patient likely to discharge home no needs via POV. SW will continue to follow. Yaneli Moctezuma LMSW, VAISHALI Addendum: 12/10/16 at 1816 by YANELI SEGOVIA Amended: Links added.
--- NOTE | 2016-12-10 18:08 | NUR ---
Chemo Dexamethasone given. Idarubicin infusing. Medication checked with halina Farley RN. PICC line checked for blood return prior to administration of medications. VSS. No signs or symptoms of adverse reaction. Call light and tray table within reach. Will continue to monitor patient hourly.
[2016-12-10] MEDS: CYTARABINE IV SCH (18:59)
--- NOTE | 2016-12-10 21:01 | PCM.PNMED ---
Subjective Date of Service Dec 10, 2016 Subjective Patient is seen and examined. Negative for overnight fevers, chills, abdominal pain, diarrhea. His rash has improved after dexamethasone administration as part of chemotherapy Exam Vital Signs Vital Sign - Last Date Time Temp Pulse Resp B/P Pulse Ox O2 Delivery O2 Flow Rate FiO2 12/10/16 20:12 36.7 69 18 160/82 99 Room Air Intake and Output 12/09/16 12/09/16 12/10/16 Cumulative From/Thru 15:00 23:00 07:00 12/09/16 12:51 - 12/10/16 06:45 Intake Total 660 ml 1591 ml 2251 ml Output Total 625 ml 2550 ml 3175 ml Balance 35 ml -959 ml -924 ml Intake Oral 660 ml 400 ml 1060 ml IV Total 1191 ml 1191 ml Output Urine Total 625 ml 2550 ml 3175 ml # Bowel Movements 0 0 0 Exam General: NAD, sitting up in chair HEENT: NCAT, Eyes: [place] conjunctivae. No ptosis, PERRL Neck: No masses, trachea midline, no thyromegaly Lungs: CTA with normal respiratory effort, no crackles or wheezes CV: RRR, no murmurs/rubs/gallops, normal PMI GI: Soft, non-tender with no hepatosplenomegaly MSK: Normal gait and station, no digital cyanosis Skin: Warm and dry. Psych: A&O X3, with appropriate affect Neuro: No focal deficits IVs and Medications IV Fluids None Medications Reviewed: Medications were reviewed in detail Lab and Diagnostics Result Diagram: 12/10/1643912/10/16439 Assessment & Plan Acute diagnosis #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 Dr. Sai Balbuena -- CBC CMP daily -- Enoxaparin 40 subcutaneous for DVT prophylaxis: Dr. Amos discontinued this -- Premedicate with Aloxi, dexamethasone, and Emend. "He will receive idarubicin 12 mg/m2 for a total dose of 24 mg idarubicin IV over 30 minutes on days one and two, as well as cytarabine (SIMÓN-C) 100 mg/m2 for a total dose of 200 mg over 24 hours daily on days one through five of the current regimen. His last bag of SIMÓN-C should be completed on December 14, 2016." -- Continue patient's home medication oxycodone when necessary #2 hypertension, chronic -- Plan to continue patient's home medication Cardizem -- Plan to increase Cardizem versus add lisinopril back in tomorrow as patient was hypertensive today #3 rash, present on admission: -- Patient will receive dexamethasone as part of his chemotherapy may help with the rash -- Resolved #4 insomnia chronic -- At bedtime melatonin -- Ativan PO when necessary #5 patient is on cyanocobalamin /B 12: Plan to continue CODE STATUS: Full code Diet: Gen. diet IV fluids locked Disposition: To home following 5 days of consolidation therapy with idarubicin and cytarabine per Dr. Balbuena GI Prophylaxis: Proton Pump Inhibitor VTE Mechanical Devices: Intermittant Pneumatic CD Resuscitation Status: CPR: Attempt Resuscitation Amanda Currie DO Dec 10, 2016 21:00
[2016-12-10] MEDS: LORazepam 1 mg Tablet PO SCH (21:17)
[2016-12-11] VITALS (7 sets, daily range): BP systolic 122–165; BP diastolic 69–84; PULSE 58–88; RESP 16–18; O2SAT 98–99
--- NOTE | 2016-12-11 03:49 | NUR ---
Chemo 24 hour chemo infusion started at beginning of shift, double checked with off-going RN. Brisk blood return verified and checked Q8 hours. Vitals stable, no adverse reactions. Pt ambulating independently in hallway with family. Hourly rounding ongoing.
[2016-12-11] MEDS: 0.9% Sodium Chloride 1,000 ML IV SCH ×2 (05:09→23:12)
[2016-12-11 05:40] LABS: BASOPHILS % (AUTO) 0 % (0-3); EOSINOPHILS % (AUTO) 0 % (0-5); MONOCYTES % (AUTO) 3.2 % (4-12); Mean Corpuscular Hemoglobin 29.5 pg (27.0-35.0); Mean Corpuscular Volume 90.8 fL (81-100); NEUTROPHILS % (AUTO) 92.6 % (40-74); Platelet Count 196 bil/L (150-400)
[2016-12-11] MEDS: Pantoprazole 20 mg ER24 Tablet PO SCH (07:02)
[2016-12-11] MEDS: PHOSPHA NEUTRAL PO SCH ×2 (08:30→19:18)
[2016-12-11] MEDS: Diltiazem CD 120 mg ER24 Capsule PO SCH (10:12)
[2016-12-11] MEDS: Omega-3 Fatty Acids 1,000 mg Capsule PO SCH (10:12)
--- NOTE | 2016-12-11 12:23 | NUR ---
Social Work-readiness for discharge: Data:EMR reviewed. Pt is on day 2 of hospitalization for consolidation per h&P. Pt is not medically stable at anticipate 2 more days. Pt is on day 3 of 5 days of chemotherapy. Pt has been up ambulating in the hallways with his . Pt and confirm home no needs. Pt's family to provide transport home when medically stable. No anticipated discharge needs. SW will continue to follow if needs arise. Assessment:Pt who is independent at baseline. Plan:Pt to discharge home when medically stable via POV. No anticipated discharge needs. SW will continue to follow if needs arise. JAZMIN Elizabeth
[2016-12-11] MEDS ORDERED: 0.9% Sodium Chloride 100 ML ONE (17:31)
[2016-12-11] MEDS: Dexamethasone Inj 10 MG in 0.9% Sodium Chloride 50 ML IV SCH (17:48)
[2016-12-11] MEDS: CYTARABINE IV SCH (18:18)
[2016-12-11] MEDS: SODIUM CHLORIDE 0.9% IV SCH (18:18)
--- NOTE | 2016-12-11 19:15 | NUR ---
Chemo Patient on day 3 of 5 of Cytarabine infusion. Cytarabine 100 mg/m2 = 200 mg in 250 mls of NS over 24 hours. Vitals taken and recorded. Discussed with patient side effects to report or any change in how he is feeling to let nurse know . Chemo dose checked with another chemo nurse . Patient up ambulating in hallway denies any adverse side effects at this time.
[2016-12-11] MEDS: LORazepam 1 mg Tablet PO SCH (20:55)
--- NOTE | 2016-12-11 21:08 | PCM.PNMED ---
Subjective Date of Service Dec 11, 2016 Subjective Patient is gaby nd examined. He has no complaints. He is tolerating the chemotherapy well so far. Day #3 today. Developed a rash over neck and top of his shoulders this does not itch. Denies fevers chills since he just wants to take a nap. He has taken losartan that administered this morning seemed to lower his blood pressure Exam Vital Signs Vital Sign - Last Date Time Temp Pulse Resp B/P Pulse Ox O2 Delivery O2 Flow Rate FiO2 12/11/16 05:35 66 12/11/16 04:56 36.8 18 164/81 99 Room Air Intake and Output 12/10/16 12/10/16 12/11/16 Cumulative From/Thru 15:00 23:00 07:00 12/09/16 12:51 - 12/11/16 05:25 Intake Total 1633 ml 607 ml 4491 ml Output Total 1975 ml 5150 ml Balance -342 ml 607 ml -659 ml Intake Oral 720 ml 1780 ml IV Total 913 ml 607 ml 2711 ml Output Urine Total 1975 ml 5150 ml # Bowel Movements 0 0 Exam General: NAD, laying in bed HEENT: NCAT Eyes: [place] conjunctivae. 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 Dr. Sai Balbuena -- CBC CMP daily -- Enoxaparin 40 subcutaneous for DVT prophylaxis: Dr. Amos discontinued this -- Premedicate with Aloxi, dexamethasone, and Emend. "He will receive idarubicin 12 mg/m2 for a total dose of 24 mg idarubicin IV over 30 minutes on days one and two, as well as cytarabine (SIMÓN-C) 100 mg/m2 for a total dose of 200 mg over 24 hours daily on days one through five of the current regimen. His last bag of SIMÓN-C should be completed on December 14, 2016." -- Continue patient's home medication oxycodone when necessary #2 hypertension, chronic -- Plan to continue patient's home medication Cardizem -- Patient is given 25 mg of losartan today for blood pressure control seemed to help #3 rash, present on admission: -- Patient will receive dexamethasone as part of his chemotherapy may help with the rash -- -- Rash 12/11 this is a different appearance, cytarabine and idarubicin both have side effects of rash will continue to monitor patient is asymptomatic currently #4 insomnia chronic -- At bedtime melatonin -- Ativan PO when necessary #5 patient is on cyanocobalamin /B 12: Plan to continue CODE STATUS: Full code Diet: Gen. diet IV fluids locked Disposition: To home following 5 days of consolidation therapy with idarubicin and cytarabine per Dr. Balbuena Pain Evaluation: Adequate Pain Control GI Prophylaxis: Proton Pump Inhibitor VTE Mechanical Devices: Intermittant Pneumatic CD Resuscitation Status: CPR: Attempt Resuscitation Amanda Currie DO Dec 11, 2016 05:44
--- NOTE | 2016-12-11 22:30 | NUR ---
ACTIVITY/PAIN/GI/RESP; up ambulating in hallway multiple times this pm with . Denies pain, nausea or sob. Chemo infusing well at 11cc/hr per picc line.
[2016-12-12] VITALS (9 sets, daily range): BP systolic 140–159; BP diastolic 66–82; PULSE 57–65; RESP 15–18; O2SAT 98–100
--- NOTE | 2016-12-12 02:48 | NUR ---
BUYING AGENT; reports: sinus [place] with heart rate of 58.
--- NOTE | 2016-12-12 04:43 | NUR ---
BLOOD; drawn without problems from picc line and sent to the lab.
[2016-12-12 04:47] LABS: BASOPHILS % (AUTO) 0 % (0-3); EOSINOPHILS % (AUTO) 0 % (0-5); MONOCYTES % (AUTO) 5.1 % (4-12); Mean Corpuscular Hemoglobin 29.8 pg (27.0-35.0); Mean Corpuscular Volume 90.9 fL (81-100); Platelet Count 160 bil/L (150-400)
[2016-12-12] MEDS: Pantoprazole 20 mg ER24 Tablet PO SCH (06:16)
[2016-12-12] MEDS: PHOSPHA NEUTRAL PO SCH ×2 (08:05→20:30)
[2016-12-12] MEDS: Diltiazem CD 120 mg ER24 Capsule PO SCH (08:05)
[2016-12-12] MEDS: Omega-3 Fatty Acids 1,000 mg Capsule PO SCH (08:05)
--- NOTE | 2016-12-12 11:53 | DRSVH ---
PROCEDURE: X-RAY CHEST ONE VIEW, PORTABLE ([id number]) INDICATIONS: CONFIRM PICC TIP PLACEMENT TECHNIQUE: One view of the chest was acquired. COMPARISON: None. FINDINGS: Surgical changes and devices: PICC line projects in the distal SVC via a left-sided approach. Lungs and pleura: No pleural effusions or pneumothorax. Lungs are clear. Mediastinum: Mediastinal contours appear normal. Heart size is normal. Bones and chest wall: No suspicious bony lesions. Overlying soft tissues appear unremarkable. IMPRESSION: PICC line projects to distal SVC. Dictated by: Emilee Biggs MD, PhD on 12/12/2016 at 11:51 Approved by: Emilee Biggs MD, PhD on 12/12/2016 at 11:52
--- NOTE | 2016-12-12 14:33 | NUR ---
JOANNA signed by JAZMIN Carr
[2016-12-12] MEDS: Dexamethasone Inj 10 MG in 0.9% Sodium Chloride 50 ML IV SCH (16:44)
[2016-12-12] MEDS: 0.9% Sodium Chloride 1,000 ML IV SCH (18:16)
[2016-12-12] MEDS: SODIUM CHLORIDE 0.9% IV SCH (18:23)
[2016-12-12] MEDS: CYTARABINE IV SCH (18:23)
--- NOTE | 2016-12-12 18:30 | NUR ---
Chemo Cytarabine infusing. Next bag hung at 18:25. PICC line placement confirmed by Xray and positive blood return in both lumens. Mild rash on anterior torso and frequent bowel movements, otherwise no s/s possible adverse effects.
[2016-12-12] MEDS ORDERED: 0.9% Sodium Chloride 500 ML IV ONE (18:35)
[2016-12-12] MEDS: LORazepam 1 mg Tablet PO SCH (21:09)
--- NOTE | 2016-12-12 21:53 | PCM.PNMED ---
Subjective Date of Service Dec 12, 2016 Subjective Patient is seen and examined. His visiting with the couple who are his friends. States that he took some MiraLAX yesterday that made him have a large bowel movement. He has a history of periods of loose stool during his stay here , stool cultures have always been negative or by the time the stool culture was ordered he stopped having loose stools. This rash has completely resolved. Patient has no other concerns Exam Vital Signs Vital Sign - Last Date Time Temp Pulse Resp B/P Pulse Ox O2 Delivery O2 Flow Rate FiO2 12/12/16 05:32 63 12/12/16 00:45 36.8 16 156/73 98 Room Air Intake and Output 12/11/16 12/11/16 12/12/16 Cumulative From/Thru 15:00 23:00 07:00 12/09/16 12:51 - 12/12/16 04:43 Intake Total 2548 ml 543 ml 8182 ml Output Total 2250 ml 9170 ml Balance 298 ml 543 ml -988 ml Intake Oral 1680 ml 4060 ml IV Total 868 ml 543 ml 4122 ml Output Urine Total 2250 ml 9170 ml # Bowel Movements 2 2 Exam General: NAD, sitting up in chair HEENT: NCAT, Eyes: [place] conjunctivae. No ptosis, PERRL Neck: No masses, trachea midline, no thyromegaly Lungs: CTA with normal respiratory effort, no crackles or wheezes CV: RRR, no murmurs/rubs/gallops, normal PMI GI: Nondistended, negative for pain MSK: , no digital cyanosis Skin: Warm and dry. 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 Dr. Sai Balbuena -- CBC CMP daily -- Enoxaparin 40 subcutaneous for DVT prophylaxis: Dr. Amos discontinued this -- Premedicate with Aloxi, dexamethasone, and Emend. "He will receive idarubicin 12 mg/m2 for a total dose of 24 mg idarubicin IV over 30 minutes on days one and two, as well as cytarabine (SIMÓN-C) 100 mg/m2 for a total dose of 200 mg over 24 hours daily on days one through five of the current regimen. His last bag of SIMÓN-C should be completed on December 14, 2016." -- Continue patient's home medication oxycodone when necessary #2 hypertension, chronic -- Plan to continue patient's home medication Cardizem -- Increase losartan to 50 mg daily #3 rash, present on admission: -- Patient will receive dexamethasone as part of his chemotherapy may help with the rash -- Resolved -- Rash 12/11 this is a different appearance, cytarabine and idarubicin both have side effects of rash will continue to monitor patient is asymptomatic currently. Resolved on 12/12 , Dexamethasone probably helped #4 insomnia chronic -- At bedtime melatonin -- Ativan PO when necessary #5 patient is on cyanocobalamin /B 12: Plan to continue #6 elevated BUN, acute: This could be due to the chemotherapy itself and cell lysis, possibly due to dehydration. Give him a small 500 mL bolus CODE STATUS: Full code Diet: Gen. diet IV fluids locked Disposition: To home following 5 days of consolidation therapy with idarubicin and cytarabine per Dr. Balbuena GI Prophylaxis: Proton Pump Inhibitor VTE Mechanical Devices: Intermittant Pneumatic CD Resuscitation Status: CPR: Attempt Resuscitation Amanda Currie DO Dec 12, 2016 05:42
--- NOTE | 2016-12-12 22:37 | NUR ---
ACTIVITY; remained in his room up in chair with this evening. States not a lot of energy today. "I think my white blood count is coming down further". pt stated. No c/o nausea or vomiting. No c/o pain. Chemo infusing without problems. 500cc bolus of normal saline was given earlier per order.
--- NOTE | 2016-12-13 04:40 | NUR ---
LAB; blood drawn from picc without any problems.
[2016-12-13 04:43] LABS: Mean Corpuscular Hemoglobin 29.9 pg (27.0-35.0); Mean Corpuscular Volume 89.8 fL (81-100); NEUTROPHILS % (AUTO) 90.3 % (40-74); Platelet Count 151 bil/L (150-400)
[2016-12-13 04:44] LABS: BASOPHILS % (AUTO) 0 % (0-3); EOSINOPHILS % (AUTO) 0 % (0-5); MONOCYTES % (AUTO) 4.1 % (4-12)
[2016-12-13 04:50] VITALS: BP 149/77; PULSE 63; RESP 16; O2SAT 99
--- NOTE | 2016-12-13 05:23 | NUR ---
PSYCH; slept well during the night without c/o.
[2016-12-13] MEDS: Pantoprazole 20 mg ER24 Tablet PO SCH (05:55)
--- NOTE | 2016-12-13 07:30 | NUR ---
Chemo Cytarabine infusing. Orders from Dr Balbuena to increase rate of infusion to allow for bag to finish by 15:00 or 16:00 today. Rate increased to 14.[address] Balbuena at bedside and aware of rate change.
[2016-12-13 09:27] VITALS: PULSE 64
--- NOTE | 2016-12-13 09:29 | PROG NOTE ---
[address] [address] PROGRESS NOTE PATIENT: JEFF AMEZCUA : 1945 MR#: [id number] ADMIT: 12/09/2016 JOB ID: [id number] DATE: 12/13/2016 SUBJECTIVE: The patient is a 71-year-old gentleman with acute myelogenous leukemia in remission, hospitalized for consolidation chemotherapy with leonor-C and idarubicin. He is on day four of his five day infusion. No significant nausea or vomiting. No fevers. No bleeding. No significant edema. OBJECTIVE: Vitals: T 36.8, P 63, R 16, BP 149/77, O2 saturation 99% on room air. HEENT: Conjunctivae pink. Mucous membranes moist. No oral lesions. Nodes: No adenopathy in the neck, axilla, or groin. Chest: Clear. Cardiac exam: Regular rate and rhythm with normal S1, S2. Abdomen: Soft, nontender. Normoactive bowel tones. Extremities: PICC line in the left arm. 2+ distal pulses. No calf tenderness. LABORATORIES: WBC 2.7 with 90% neutrophils, hemoglobin 9.7, hematocrit 29.1%, platelets 151,000. Sodium 138, potassium 4.2, BUN 20, creatinine 0.44, glucose 148. AST 21, ALT 27, alkaline phosphatase 74. ASSESSMENT AND PLAN: Acute myelogenous leukemia, in complete remission following induction and re-induction chemotherapy: Clinically stable. He has received two days of idarubicin during this hospitalization and is now completing bag 4 of 5 continuous infusion leonor-C 100 mg/m2 for a total dose of 200 mg leonor-C over 24 hours daily. Bag five will be completed late tomorrow afternoon. I instructed nursing staff to adjust the rate so that he will complete his infusions between three and four in the afternoon. If he remains stable, anticipate discharge home tomorrow evening. No indication for transfusion support at this time. After discharge, please arrange laboratory studies in the Cancer Center on , December 16, 2016, with CBC, differential, platelets and CMP at that time. In addition, he will be scheduled for a doctor visit on December 20, 2016, with Dr. Balbuena. He will need a PICC line dressing change at that time, and additional labs including CBC, differential, platelets, and CMP. CC: Amanda Currie DO
[2016-12-13 09:42] VITALS: BP 161/78; PULSE 63; RESP 17; O2SAT 99
[2016-12-13] MEDS: Diltiazem CD 120 mg ER24 Capsule PO SCH (09:53)
[2016-12-13] MEDS: Omega-3 Fatty Acids 1,000 mg Capsule PO SCH (09:53)
[2016-12-13] MEDS: PHOSPHA NEUTRAL PO SCH ×2 (09:53→19:55)
[2016-12-13 14:08] VITALS: BP 120/75; PULSE 75; RESP 16; O2SAT 100
[2016-12-13] MEDS ORDERED: 0.9% Sodium Chloride 250 ML ONE (17:15)
--- NOTE | 2016-12-13 17:50 | NUR ---
Infusion delay Pharmacy informed me that Cytarabine is not available at this time, dose is currently being delivered from [place]. Kee, pharmacist informed patient and his of delay. parking supervisor and hospice community liaison also aware. Dr Balbuena phoned, ordered infusion to run over 22 hours from time it is started. Faxed order to pharmacy. Awaiting chemo and premeds at this time.
[2016-12-13 19:29] VITALS: BP 130/64; PULSE 70; RESP 16
[2016-12-13] MEDS: Dexamethasone Inj 10 MG in 0.9% Sodium Chloride 50 ML IV SCH (19:30)
[2016-12-13] MEDS: CYTARABINE IV SCH (19:33)
[2016-12-13] MEDS: SODIUM CHLORIDE 0.9% IV SCH (19:33)
[2016-12-13] MEDS: 0.9% Sodium Chloride 1,000 ML IV SCH (19:54)
[2016-12-13 20:00] VITALS: BP 136/71; PULSE 65; PULSE 67; RESP 16; O2SAT 99
--- NOTE | 2016-12-13 21:09 | PCM.PNMED ---
Subjective Date of Service Dec 13, 2016 Subjective Patient is seen and examined later in the day. Dr. Conley was hoping to send him home tomorrow in the evening early enough however, it appears his chemotherapy for tonight is delayed for a bit and they will be starting at around 7 PM. He denies any new rashes, fevers chills, or any other concerns. Asked me to look at his leg edema Exam Vital Signs Vital Sign - Last Date Time Temp Pulse Resp B/P Pulse Ox O2 Delivery O2 Flow Rate FiO2 12/12/16 20:15 36.7 62 16 147/70 98 Room Air Intake and Output 12/12/16 12/12/16 12/13/16 Cumulative From/Thru 15:00 23:00 07:00 12/09/16 12:51 - 12/13/16 04:39 Intake Total 3548 ml 559 ml 26536 ml Output Total 1250 ml 29097 ml Balance 2298 ml 559 ml -1281 ml Intake Oral 2200 ml 6360 ml IV Total 1348 ml 559 ml 6029 ml Output Urine Total 1250 ml 89459 ml # Bowel Movements 2 4 Exam Gen.: No acute distress sitting up in chair talking to HEENT normocephalic, atraumatic Heart: Regular rate and rhythm no S3-S4 murmurs Lungs: Clear to auscultation bilaterally no crackles or wheezes Abdomen nondistended Extremities very trace edema bilaterally Neuro: No focal deficits psych: No anxiety IVs and Medications IV Fluids None Medications Reviewed: Medications were reviewed in detail Lab and Diagnostics Result Diagram: 12/13/16 0435 12/13/16 0435 Assessment & Plan Acute diagnosis #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 Dr. Sai Balbuena -- CBC CMP daily -- Enoxaparin 40 subcutaneous for DVT prophylaxis: Dr. Amos discontinued this -- Premedicate with Aloxi, dexamethasone, and Emend. "He will receive idarubicin 12 mg/m2 for a total dose of 24 mg idarubicin IV over 30 minutes on days one and two, as well as cytarabine (SIMÓN-C) 100 mg/m2 for a total dose of 200 mg over 24 hours daily on days one through five of the current regimen. His last bag of SIMÓN-C should be completed on December 14, 2016." -- Continue patient's home medication oxycodone when necessary #2 hypertension, chronic -- Plan to continue patient's home medication Cardizem -- Increase losartan to 50 mg daily, tolerating it well so far -- To address his concerns with the trace leg edema I suggested that he discusses increasing losartan instead of continuing Cardizem with his PCP. He is agreeable to this plan #3 rash, present on admission: -- Patient will receive dexamethasone as part of his chemotherapy may help with the rash -- Resolved -- Rash 12/11 this is a different appearance, cytarabine and idarubicin both have side effects of rash will continue to monitor patient is asymptomatic currently. Resolved on 12/12 , Dexamethasone probably helped #4 insomnia chronic -- At bedtime melatonin -- Ativan PO when necessary #5 patient is on cyanocobalamin /B 12: Plan to continue #6 elevated BUN, acute: This could be due to the chemotherapy itself and cell lysis, possibly due to dehydration. Give him a small 500 mL bolus -- We will consider bolusing him tomorrow a.m. based on his labs #7 leukocytopenia, anemia -- This is due to chemotherapy, continue to monitor. Follow Dr. Conley's recommendations -- May consider iron supplementation if he is already not on it CODE STATUS: Full code Diet: Gen. diet IV fluids locked Disposition: To home following this the day of consolidation therapy tomorrow Pain Evaluation: Adequate Pain Control GI Prophylaxis: Proton Pump Inhibitor VTE Mechanical Devices: Intermittant Pneumatic CD Resuscitation Status: CPR: Attempt Resuscitation Amanda Currie DO Dec 13, 2016 05:46
[2016-12-13] MEDS: LORazepam 1 mg Tablet PO SCH (21:37)
[2016-12-14 00:36] VITALS: BP 148/79; PULSE 69; RESP 16; O2SAT 100
--- NOTE | 2016-12-14 03:50 | NUR ---
Chemo Premed and chemo started at earliest time available from pharmacy, chemo infusion begun by 193 set to run for 22 hours. PICC line with brisk blood return. Anticipate discharge in evening when chemo is complete. Pt is tolerating dose without incident. Pt ambulated multiple times in hallway, reports adequate energy. Reports one small mouth ulcer relieved with NS mouth rinses. Hourly rounding ongoing.
[2016-12-14] MEDS ORDERED: LOSA50TA3 PO (05:25)
[2016-12-14] MEDS ORDERED: LORA-303 PO (05:25)
[2016-12-14 05:51] VITALS: BP 143/81; PULSE 62; RESP 16; O2SAT 98
[2016-12-14] MEDS: Pantoprazole 20 mg ER24 Tablet PO SCH (05:58)
[2016-12-14 06:07] LABS: BASOPHILS % (AUTO) 0 % (0-3); EOSINOPHILS % (AUTO) 0 % (0-5); MONOCYTES % (AUTO) 0.8 % (4-12); Mean Corpuscular Hemoglobin 29.3 pg (27.0-35.0); Mean Corpuscular Volume 88.9 fL (81-100); NEUTROPHILS % (AUTO) 94.4 % (40-74); Platelet Count 164 bil/L (150-400)
[2016-12-14] MEDS: PHOSPHA NEUTRAL PO SCH (08:30)
[2016-12-14 09:25] VITALS: PULSE 60
[2016-12-14] MEDS: Diltiazem CD 120 mg ER24 Capsule PO SCH (10:04)
[2016-12-14] MEDS: Omega-3 Fatty Acids 1,000 mg Capsule PO SCH (10:06)
--- NOTE | 2016-12-14 10:17 | NUR ---
JOANNA signed by pt JAZMIN Carr
--- NOTE | 2016-12-14 10:36 | NUR ---
Social Work-readiness for discharge: Data:EMR reviewed. Pt is on day 5 of hospitalization for consolidation per h&P. Pt will likely be medically stable later today or tomorrow. Pt is on final day of chemotherapy. Pt has been up ambulating in the hallways with his , no needs identified. to provide transport home at discharge. No anticipated discharge needs. SW will continue to follow if needs arise. Assessment:Pt who is independent at baseline. Plan:Pt to discharge home when medically stable via POV. No anticipated discharge needs. SW will continue to follow if needs arise. JAZMIN Elizaebth
[2016-12-14 11:36] VITALS: BP 139/75; PULSE 71; RESP 19; O2SAT 100
--- NOTE | 2016-12-14 13:07 | PCM.DIMED ---
Discharge Instructions Date of Service Dec 14, 2016 Dates of Hospitalization Dec 09, 2016 at 12:15 Discharge Diagnosis Discharge Diagnosis AML Consolidation cytarabin/idarubicin Therapy, HTN, BPH Diet Heart Healthy Activity No restrictions Call your provider Fever or Chills, Shortness of breath, Bleeding, Chest pain, Vomitting, Excessive diarrhea, Weakness (unilateral) Patient Instructions Follow-up plan F/U with PCP in 2 weeks After discharge, please arrange laboratory studies in the Cancer Center on , December 16, 2016, with CBC, differential, platelets and CMP at that time. In addition, he will be scheduled for a doctor visit on December 20, 2016, with Dr. Balbuena. He will need a PICC line dressing change at that time, and additional labs including CBC, differential, platelets, and CMP CBC, differential, platelets, and CMP.prior to 12/16/16 CBC, differential, platelets, and CMP. prior to visit with Dr. Balbuena on 12/20/16 . Please also forward results to Dr. Balbuena and PCP Amanda Currie DO Dec 14, 2016 13:07
--- NOTE | 2016-12-14 13:15 | PCM.DC.MED ---
Discharge Summary Date of Service Dec 14, 2016 Dates of Hospitalization Date of Hospital Admission Dec 09, 2016 at 12:15 Date of Discharge: Dec 14, 2016 Providers: Admitting Physician: Amanda Jason DO Primary Care Physician: Bob Velarde MD Attending Physician: Amanda Jason DO Diagnosis at Time of Discharge Diagnosis at Time of Discharge AML Consolidation cytarabin/idarubicin Therapy, HTN, BPH Consultations Hemonc Brief History This is a pleasant 71-year-old gentleman with past medical history of AML, HTN, BPH presenting as a direct admit for consolidation therapy. Dr. Sai Balbuena is his oncologist. Dr. Balbuena feels that Bone marrow studies about three weeks ago show no evidence of residual leukemia. Nonetheless, without further consolidation chemotherapy, most of these patients will relapse. The best opportunity to achieve and maintain a complete remission is to administermconsolidation chemotherapy. He is here for 5 days of therapy. His last set of labs were done on 12/06/16 and showed no concern for thrombocytopenia , his platelets and white count have recovered nicely. Patient currently denies fevers, chills, abdominal pain, back pain. He does have a mild rash over his arms and in the groin area say see it does not particularly itch. He denies diarrhea currently. He denies headaches nausea vomiting numbness and urinary symptoms all other ROS negative except as stated here in the history of present illness. Hospital Course Acute diagnosis #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 Dr. Sai Balbuena -- CBC CMP daily -- Enoxaparin 40 subcutaneous for DVT prophylaxis: Discontinued per Dr. Balbuena. -- Premedicate with Aloxi, dexamethasone, and Emend. "He will receive idarubicin 12 mg/m2 for a total dose of 24 mg idarubicin IV over 30 minutes on days one and two, as well as cytarabine (SIMÓN-C) 100 mg/m2 for a total dose of 200 mg over 24 hours daily on days one through five of the current regimen. His last bag of SIMÓN-C should be completed on December 14, 2016." -- Continue patient's home medication oxycodone when necessary -- The patient successfully completed 5 days of therapy. He is eating normal diet and ablating in the hallways. He is wanting to to go home. #2 hypertension, chronic -- Plan to continue patient's home medication Cardizem -- Increase losartan to 50 mg daily, tolerating it well so far -- To address his concerns with the trace leg edema I suggested that he discusses increasing losartan instead of continuing Cardizem with his PCP. He is agreeable to this plan. -- He was given Losartan script and we asked that the f/u lab work be forwarded to the PCP #3 rash, present on admission: -- Patient will receive dexamethasone as part of his chemotherapy may help with the rash -- Resolved -- Rash 12/11 this is a different appearance, cytarabine and idarubicin both have side effects of rash will continue to monitor patient is asymptomatic currently. Resolved on 12/12 , Dexamethasone probably helped -- Resolved on the day of discharge #4 insomnia chronic -- At bedtime melatonin -- Ativan PO when necessary home med #5 patient is on cyanocobalamin /B 12: Plan to continue #6 elevated BUN, acute: This could be due to the chemotherapy itself and cell lysis, possibly due to dehydration. Give him a small 500 mL bolus -- He is given IV hydration as needed #7 leukocytopenia, anemia -- This is due to chemotherapy, continue to monitor. Follow Dr. Valdes recommendations -- Patient has f/u labs for Onc/PCP F/U CODE STATUS: Full code Diet: Gen. diet Exam Vital Signs (Last) Date Time Temp Pulse Resp B/P Pulse Ox O2 Delivery O2 Flow Rate FiO2 12/14/16 11:36 36.6 71 19 139/75 100 Room Air Exam Gen.: No acute distress sitting up in chair talking to HEENT normocephalic, atraumatic Heart: Regular rate and rhythm no S3-S4 murmurs Lungs: Clear to auscultation bilaterally no crackles or wheezes Abdomen nondistended Extremities very trace edema bilaterally Neuro: No focal deficits psych: No anxiety Test 12/10/16 04:40 12/14/16 06:00 Urine Color Yellow (YELLOW) Urine Appearance Clear (CLEAR,HAZY) Urine pH 7.0 (5.0-8.0) Urine Specific [place] 1.010 (1.003-1.035) Urine Protein Negativemg/dL (NEG,TRACE) Urine Glucose (UA) Negativemg/dL (NEGATIVE) Urine Ketones Negativemg/dL (NEGATIVE) Urine Occult Blood Negative (NEGATIVE) Urine Nitrite Negative (NEGATIVE) Urine Bilirubin Negative (NEGATIVE) Urine Urobilinogen Normalmg/dL (NORMAL) Urine Leukocyte Esterase Negative (NEGATIVE) Urine RBC 0-2/hpf (0-2) Urine WBC 0-5/hpf (0-5) Urine Epithelial Cells None/hpf (NONE-MOD) Urine Crystals None seen (NONE SEEN) Urine Bacteria None/hpf (NONE-FEW) Urine Hyaline Casts None/lpf (NONE) Urine Granular Casts None seen (NONE SEEN) Urine Waxy Casts None seen (NONE SEEN) Urine Red Blood Cell Casts None seen (NONE SEEN) Urine White Blood Cell Casts None seen (NONE SEEN) Urine Mucus None seen (None Seen) Urine Trichomonas None seen (NONE SEEN) Urine Yeast None (NONE SEEN) Urinalysis Comment None Urine Culture Reflexed Not indicated White Blood Count 2.5th/mm3 (3.8-10.1) Red Blood Count 3.34mil/mm3 (4.40-5.80) Hemoglobin 9.8g/dL (13.8-17.2) Hematocrit 29.7% (41.0-50.0) Mean Corpuscular Volume 88.9fL (81-100) Mean Corpuscular Hemoglobin 29.3pg (27.0-35.0) Mean Corpuscular Hemoglobin Concent 33.0% (32.0-37.0) Red Cell Distribution Width 16.1% (12.3-15.4) Platelet Count 164bil/L (150-400) Neutrophils (%) (Auto) 94.4% (40-74) Lymphocytes (%) (Auto) 4.8% (14-46) Monocytes (%) (Auto) 0.8% (4-12) Eosinophils (%) (Auto) 0% (0-5) Basophils (%) (Auto) 0% (0-3) Sodium Level 139mEq/L (134-144) Potassium Level 4.4mEq/L (3.5-5.2) Chloride Level 103mEq/L (97-108) Carbon Dioxide Level 24mmol/L (18-29) Blood Urea Nitrogen 20mg/dL (8-27) Creatinine 0.44mg/dL (0.76-1.27) Estimat Glomerular Filtration Rate 201mL/min (>59) Glucose Level 140mg/dL (60-99) Calcium Level 9.4mg/dL (8.5-10.1) Total Bilirubin 0.6mg/dL (0.0-1.2) Aspartate Amino Transf (AST/SGOT) 21U/L (0-50) Alanine Aminotransferase (ALT/SGPT) 29U/L (0-44) Alkaline Phosphatase 76U/L (25-160) Total Protein 5.4g/dL (6.4-8.4) Albumin 3.8g/dL (3.4-5.0) Discharge Medications Discharge Medications Cholecalciferol (Vitamin D3) (Vitamin D3) 4,000 Unit Capsule 4,000 UNIT PO DAILY (Reported) Cyanocobalamin (Vitamin B12) 500 Mcg Tablet 1,000 MCG PO DAILY (Reported) Diltiazem ER (Cartia XT) 120 Mg Cap.er.24h 120 MG PO QAM (Reported) Gluc 2Kcl/Chondr/Ratna Hy/Hy AC (Glucosamine & Chondroitin Cap) 1 Each Capsule 1 EACH PO DAILY (Reported) Levofloxacin (Levaquin) 500 Mg Tablet 500 MG PO DAILY (Reported) Lorazepam (Ativan) 1 Mg Tablet 1 MG PO HS Prescribed by: AMANDA JASON DO Losartan Potassium (Cozaar) 50 Mg Tablet 50 MG PO DAILY Prescribed by: AMANDA JASON DO Magnesium Citrate (Magnesium Citrate) 100 Mg Tablet 100 MG PO DAILY (Reported) Multivitamin (Once Daily) 1 Each Tablet 1 EACH PO DAILY (Reported) [place]-3 Fatty Acids (Fish Oil) 300 Mg Capsule 900 MG PO DAILY (Reported) Omeprazole (Omeprazole) 20 Mg Capsule.dr 20 MG PO QAM (Reported) Ubidecarenone (Coq-10) 100 Mg Capsule 100 MG PO DAILY (Reported) As needed Acetaminophen (Tylenol Arthritis) 650 Mg Tablet.er 1,300 MG PO DAILY PRN PRN For Pain (Reported) Clobetasol Propionate (Clobetasol Propionate) 15 Gm Oint...g. 1 APPLIC TOPICAL DAILY PRN PRN scalp itching (Reported) Sildenafil Citrate (Viagra) 100 Mg Tablet 50 MG PO DAILY PRN PRN for sexual activity (Reported) Miscellaneous Medications Melatonin (Melatonin) 3 Mg Tablet.er 3 MG PO (Reported) Followup Plan Follow-up plan F/U with PCP in 2 weeks After discharge, please arrange laboratory studies in the Cancer Center on November, with CBC, differential, platelets and CMP at that time. In addition, he will be scheduled for a doctor visit on December 20, 2016, with Dr. Balbuena. He will need a PICC line dressing change at that time, and additional labs including CBC, differential, platelets, and CMP CBC, differential, platelets, and CMP.prior to 12/16/16 CBC, differential, platelets, and CMP. prior to visit with Dr. Balbuena on 12/20/16 . Please also forward results to Dr. Balbuena and PCP Discharge Diet: Heart Healthy Discharge Activity: No restrictions Amanda Jason DO Dec 14, 2016 13:15
[2016-12-14] MEDS: 0.9% Sodium Chloride 1,000 ML IV SCH (14:05)
--- NOTE | 2016-12-14 15:24 | NUR ---
Social Work- discharge: Data:EMR reviewed. Pt is on day 5 of hospitalization for consolidation per h&P. Pt is medically stable for discharge. Pt is on final day of chemotherapy. Pt has been up ambulating in the hallways with his , no needs identified. Pt and agreeable to discharge home. to provide transport home at discharge. No anticipated discharge needs. All updated and agreeable to plan. Assessment:Pt who is independent at baseline. Plan:Pt to discharge home today via POV. No anticipated discharge needs. All updated and agreeable to plan. JAZMIN Elizabeth
--- NOTE | 2016-12-14 16:22 | PROG NOTE ---
[address] [address] PROGRESS NOTE PATIENT: JEFF AMEZCUA : 1945 MR#: [id number] ADMIT: 12/09/2016 JOB ID: [id number] DATE: 12/14/2016 SUBJECTIVE: The patient is a 71-year-old gentleman with acute myelogenous leukemia in remission, hospitalized for consolidation chemotherapy with SIMÓN-C and idarubicin. He is completing his final 24 hour infusion of SIMÓN-C today. No acute concerns. No fevers. No significant nausea. OBJECTIVE: Vitals: T 36.7, P 62, R 16, BP 143/81. O2 saturation 98% on room air. HEENT: Conjunctivae slightly pale. Mucous membranes moist. No oral lesions. Nodes: No adenopathy in the neck or axilla. Chest: Clear throughout. Cardiac examination: Regular rate and rhythm with normal S1, S2. Abdomen: Soft, nontender. Normoactive bowel tones. No splenomegaly or masses. Extremities: PICC line in the left arm. 2+ distal pulses. No calf tenderness. LABORATORIES: WBC 2.5, hemoglobin 9.8, hematocrit 29.7%, platelets 164,000. BUN 20, creatinine 0.44, glucose 140. AST 21, ALT 29, alkaline phosphatase 76. 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 No indication for growth factor support or transfusions. Complete his final infusion with SIMÓN-C later today. Unless there are subsequent complications, anticipate that he will be discharged home this evening. Given that he is coming into a prolonged neutropenic phase, please discharge him on Levaquin 500 mg by mouth daily as prophylactic antibiotic coverage. Arrange laboratory studies including CBC, differential and platelets, and in the Cancer Center this week, , December 16, 2016, and schedule followup with Dr. Balbuena at the Cancer Center next Tuesday, December 20, 2016. Check CBC, differential, platelets and CMP at that time. He is likely to require transfusion support in the near future. He is at risk for developing profound neutropenia, which could predispose to infectious complications. He was advised to call immediately in the event of any significant fevers or signs of infection. Please do not remove his PICC line at the time of discharge, as this will be required for further transfusion support, and potentially for additional IV antibiotics in the near future.
[2016-12-14 16:57] VITALS: BP 137/68; PULSE 66; RESP 17; O2SAT 100
--- NOTE | 2016-12-14 19:40 | NUR ---
Discharge Patient discharged home with today after chemo finished. Pt will follow up with oncologist as directed and primary Dr in 2 weeks. Pt knows to have labs drawn on 12/16/16. Pt aware of s/s to report or seek help for s/p chemo infusion. Patient given verbal and written home care instructions. Pt denied any further questions.
[2016-12-15] MEDS ORDERED: LEVO500T16 PO (10:23)
[2017-01-31] MEDS ORDERED: ASCO-294 PO (12:29)
[2017-01-31] MEDS ORDERED: VIT1TABL83 PO (12:29)
[2017-01-31] MEDS ORDERED: LORA1TAB PO (17:03)
== END 2016-12-14 18:19 | disposition home or self-care (01) | DRG 847 ==
LOC: OSC 12:15
PROVIDERS: ADMIT Family Medicine; ATTEND Family Medicine
DX: Z51.11 Encounter for antineoplastic chemotherapy (principal); C92.Z1 Other myeloid leukemia, in remission; I10 Essential (primary) hypertension; N40.0 Benign prostatic hyperplasia without lower urinary tract symptoms; G47.00 Insomnia, unspecified; D70.1 Agranulocytosis secondary to cancer chemotherapy; D64.81 Anemia due to antineoplastic chemotherapy; Z87.891 Personal history of nicotine dependence

== ENCOUNTER 2016-12-24 10:03 | Inpatient (IN) | payer MEDICARE, OTHER ==
[~2016-12-24] VITALS: Ht 182.9 cm; Wt 71.7 kg
[2016-12-24] VITALS (7 sets, daily range): BP systolic 141–164; BP diastolic 67–83; PULSE 76–93; RESP 13–16; O2SAT 98–100
[~2016-12-24 10:03] MED LIST changes: -CYAN250010 PO; +CYAN500 PO; +LEVO500T16 PO; +LOSA50TA3 PO; +MELA3TAB11 PO; -PHOS250T PO
--- NOTE | 2016-12-24 10:31 | ED.REPORT ---
HPI-General Illness Date of Service December 24, 2016 ED Provider: Esteban Mendes MD A 71 year old male with a medical history including AML in remission, hypertension, and GERD presents to the ED with nose redness and pain onset yesterday afternoon. Associated symptoms include sore throat and fever (101.6 early this morning). The patient also reports multiple days of rhinorrhea ( resolved) and headache. He was seen by his oncologist yesterday for lightheadedness and SOB and received 2 units of platelets and RBCs. His WBC was 0.67 on Tuesday and 0.21 yesterday. His neutrophils were 0.0 yesterday. The patient denies cough, abdominal pain, dysuria, bleeding, or other symptoms. He has taken Tylenol and Aleve this morning. He is taking Levaquin daily. The patient was discharged 11 days ago from [facility] after admission for AML consolidation cytarabin/idarubicin therapy. Nursing Notes Stated Complaint: POSSIBLE INFECTION SENT BY Chief Complaint: General Complaint Nursing Notes Reviewed: Yes Allergies: Coded Allergies: atenolol (Verified Allergy, Severe, hives, 12/09/16) doxycycline (Verified Adverse Reaction, Severe, abdominal cramping, ) amlodipine (Verified Adverse Reaction, Intermediate, ankle swelling, ) cetirizine (Verified Adverse Reaction, Intermediate, prostate issues, 12/09) hydrochlorothiazide (Verified Adverse Reaction, Intermediate, headache, ) hydrocodone (Verified Adverse Reaction, Intermediate, upset stomach, ) lisinopril (Verified Adverse Reaction, Intermediate, low sodium, 12/09/16) piroxicam (Verified Adverse Reaction, Intermediate, low iron, 12/09/16) oxycodone (Verified Adverse Reaction, Unknown, causes insomnia, 12/09/16) Scheduled Cholecalciferol (Vitamin D3) (Vitamin D3) 4,000 Unit Capsule 4,000 UNIT PO DAILY Cyanocobalamin (Vitamin B12) 500 Mcg Tablet 1,000 MCG PO DAILY Diltiazem ER (Cartia XT) 120 Mg Cap.er.24h 120 MG PO QAM Gluc 2Kcl/Chondr/Ratna Hy/Hy AC (Glucosamine & Chondroitin Cap) 1 Each Capsule 1 EACH PO DAILY Levofloxacin (Levaquin) 500 Mg Tablet 500 MG PO DAILY Lorazepam (Ativan) 1 Mg Tablet 1 MG PO HS Magnesium Citrate (Magnesium Citrate) 100 Mg Tablet 100 MG PO DAILY Melatonin (Melatonin) 3 Mg Tablet.er 3 MG PO HS Multivitamin (Once Daily) 1 Each Tablet 1 EACH PO DAILY [place]-3 Fatty Acids (Fish Oil) 300 Mg Capsule 900 MG PO DAILY Omeprazole (Omeprazole) 20 Mg Capsule.dr 20 MG PO QAM Ubidecarenone (Coq-10) 100 Mg Capsule 100 MG PO DAILY Scheduled PRN Acetaminophen (Tylenol Arthritis) 650 Mg Tablet.er 1,300 MG PO DAILY PRN PRN For Pain Clobetasol Propionate (Clobetasol Propionate) 15 Gm Oint...g. 1 APPLIC TOPICAL DAILY PRN PRN scalp itching Naproxen Sodium (Aleve) 220 Mg Capsule 220 MG PO BID PRN PRN For Pain Sildenafil Citrate (Viagra) 100 Mg Tablet 50 MG PO DAILY PRN PRN for sexual activity General Time Seen by MD: 10:26 Chief Complaint Other (Nose Redness and Pain) Hx Obtained From: Patient Arrived By: Walk-in Sudden in Onset?: Yes Onset Occurred: Yesterday Symptom Duration: Since onset Location: : Head: Neck (Throat): Nose Quality: Painful Severity: Current: Moderate Severity: Maximum: Moderate Pertinent Negative: Relieved by nothing Context Related History: Reports Cancer Recent Healthcare: Recent doctor visit, Recent hospitalization Similar Sx Previous: Yes Past Medical History Past Medical History Acute myelogenous leukemia - Diagnosed 10/08/16 Hypertension Environmental allergies GERD History of cervical adenopathy 2003 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 Erectile dysfunction left vitreal detachment in 2008 Past Surgical History Rectum E Hernia repair the inguinal 2 in the right colonoscopy normal 2008 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 Physical Exam Vital Signs Vital Signs Date Time Temp Pulse Resp B/P Pulse Ox O2 Delivery O2 Flow Rate FiO2 12/24/16 14:05 38.3 82 16 155/67 98 Room Air 12/24/16 11:43 76 13 141/74 99 Room Air 12/24/16 10:16 37.3 83 16 146/83 100 Room Air Initial VS: Reviewed Skin: Warm, Dry Neurologic: Alert, Oriented Psychiatric: Mood/affect normal, Behavior normal General/Constitutional: Awake, Alert Head / Eyes: Atraumatic, Normocephalic ENT: Airway patent, Mucous membranes moist, Pharynx NL Mild erythema left nare Respiratory / Chest: Breath sounds NL, Breath sounds = bilat, No respiratory distress Cardiovascular: Heart rate NL, Regular rhythm, Heart sounds NL Abdomen: Soft, Non-tender Upper Extremities Upper Extremity / MS: Full range of motion Port in left upper extremity Mild surrounding erythema Interpretation & Diagnostics Lab Results Interpretation Result Diagram: 12/24/16 1115 12/24/16 1145 Test 12/24/16 11:15 12/24/16 11:45 12/24/16 12:04 White Blood Count 0.2th/mm3 (3.8-10.1) Red Blood Count 2.87mil/mm3 (4.40-5.80) Hemoglobin 8.6g/dL (13.8-17.2) Hematocrit 23.7% (41.0-50.0) Mean Corpuscular Volume 82.6fL (81-100) Mean Corpuscular Hemoglobin 30.0pg (27.0-35.0) Mean Corpuscular Hemoglobin Concent 36.3% (32.0-37.0) Red Cell Distribution Width 14.1% (12.3-15.4) Platelet Count 44bil/L (150-400) Neutrophils (%) (Auto) 6.6% (40-74) Lymphocytes (%) (Auto) 80.0% (14-46) Monocytes (%) (Auto) 0% (4-12) Eosinophils (%) (Auto) 6.7% (0-5) Basophils (%) (Auto) 6.7% (0-3) Sodium Level 133mEq/L (134-144) Potassium Level 4.0mEq/L (3.5-5.2) Chloride Level 96mEq/L (97-108) Carbon Dioxide Level 23mmol/L (18-29) Blood Urea Nitrogen 16mg/dL (8-27) Creatinine 0.45mg/dL (0.76-1.27) Estimat Glomerular Filtration Rate 196mL/min (>59) Glucose Level 113mg/dL (60-99) Lactic Acid Level 0.8mmol/L (0.4-2.0) Calcium Level 9.5mg/dL (8.5-10.1) Magnesium Level 1.6mg/dL (1.6-2.6) Total Bilirubin 0.9mg/dL (0.0-1.2) Aspartate Amino Transf (AST/SGOT) 23U/L (0-50) Alanine Aminotransferase (ALT/SGPT) 30U/L (0-44) Alkaline Phosphatase 96U/L (25-160) Troponin T 0.019ug/L (0.0-0.011) Total Protein 5.8g/dL (6.4-8.4) Albumin 4.0g/dL (3.4-5.0) Urine Color Yellow (YELLOW) Urine Appearance Hazy (CLEAR,HAZY) Urine pH 7.0 (5.0-8.0) Urine Specific [place] 1.015 (1.003-1.035) Urine Protein Negativemg/dL (NEG,TRACE) Urine Glucose (UA) Negativemg/dL (NEGATIVE) Urine Ketones Negativemg/dL (NEGATIVE) Urine Occult Blood Negative (NEGATIVE) Urine Nitrite Negative (NEGATIVE) Urine Bilirubin Negative (NEGATIVE) Urine Urobilinogen Normalmg/dL (NORMAL) Urine Leukocyte Esterase Negative (NEGATIVE) Urine RBC 0-2/hpf (0-2) Urine WBC 0-5/hpf (0-5) Urine Epithelial Cells Occasional/hpf (NONE-MOD) Urine Crystals None seen (NONE SEEN) Urine Bacteria Few/hpf (NONE-FEW) Urine Hyaline Casts None/lpf (NONE) Urine Granular Casts Occasional (NONE SEEN) Urine Waxy Casts None seen (NONE SEEN) Urine Red Blood Cell Casts None seen (NONE SEEN) Urine White Blood Cell Casts None seen (NONE SEEN) Urine Mucus Present (None Seen) Urine Trichomonas None seen (NONE SEEN) Urine Yeast None (NONE SEEN) Urinalysis Comment None Urine Culture Reflexed Not indicated X-Ray Chest Interpretation Chest Xray Interpretation: IMPRESSION: No acute cardiopulmonary abnormality. Left-sided PICC line in place. Dictated by: Yonis Cannon M.D. on 12/24/2016 at 11:39 View: Portable Interpretation / Wet Read by: Interpret - Radiologist Re-Eval/Medical Decision Med Decision/Clinical Course 71-year-old male history of AML in remission on consolidative chemotherapy 10 days status post discharge for consolidative chemotherapy presenting with neutropenic fever. Patient had transfusion for PRBCs and platelets yesterday at outpatient transfusion facility. He reports developing left nose redness and pain last night and sore throat. Fever to 101 this morning. He spiked a fever while in our ER. On exam with left nares possible developing early cellulitis. His port with mild surrounding erythema no overt cellulitis at this point. Otherwise benign exam. He is neutropenic. Discussed with oncologist who agrees with admission from neutropenic fever. Discussed with infectious disease recommends starting with meropenem 1 drug therapy at this time. Broaden if deterioration clinically. Of note, patient did have pseudomonas bacteremia on previous admission which was sensitive to meropenem. Admitted. Source of Hx: Old records Time of Eval: 13:33 Patient Status: Condition improved Re-Evaluation/Progress Note: Discussed with patient x-ray and lab results, diagnosis, and plan for admit. Patient agrees with plan for care and all questions were addressed. Code status discussed in the presence of his . Patient is FULL CODE. Consultation #1: Referral / Consult Name: Jorge Stephens MD Requested Call at: 12:38 Call Returned at: 13:10 Wine Cellar Worker: Agrees with eval, Agrees with plan Note: Oncology: Recommends admission Consultation #2: Referral / Consult Name: Jorge Luis Hackett MD Call Returned at: 13:13 Wine Cellar Worker: Will see patient, Agrees with eval, Agrees with plan Note: Infectious Disease: Recommends meropenem Consultation #3: Referral / Consult Name: Eben Lucio MD Consulted With: Hospitalist Call Returned at: 13:28 Wine Cellar Worker: Agrees with eval, Agrees with plan, Accepts admit Counseled Regarding: Diagnosis, Lab results, Need for follow-up, When/why to return to ED Discharge & Departure Primary Impression: Neutropenic fever Disposition: ADMITTED TO HOSPITAL Discharge Condition All VS Reviewed: Yes Condition: Improved Referrals: Bob Velarde MD (PCP) Scribe Attestation Portions of this note were transcribed by Zeny Hill. I, Dr. Mendes, personally performed the history, physical exam, and medical decision-making; I reviewed and confirmed the accuracy of the information in the transcribed note. Signed by: Panda Haile, 12/24/2016, 14:57 copies to: Bob Velarde MD, Ben M MD December 24, 2016 10:31 ZENY HILL December 24, 2016 11:07
--- NOTE | 2016-12-24 11:42 | DRSVH ---
PROCEDURE: X-RAY CHEST ONE VIEW, PORTABLE ([id number]) INDICATIONS: neutropenic fever TECHNIQUE: One view of the chest was acquired. COMPARISON: 12/12/2016 FINDINGS: Surgical changes and devices: Left-sided PICC line with tip overlying the SVC. Lungs and pleura: No pleural effusions or pneumothorax. Lungs are clear. Mediastinum: Mediastinal contours appear normal. Heart size is normal. Bones and chest wall: No suspicious bony lesions. Overlying soft tissues appear unremarkable. IMPRESSION: No acute cardiopulmonary abnormality. Left-sided PICC line in place. Dictated by: Yonis Cannon M.D. on 12/24/2016 at 11:39 Approved by: Yonis Cannon M.D. on 12/24/2016 at 11:41
[2016-12-24 12:01] LABS: BASOPHILS % (AUTO) 6.7 % (0-3); EOSINOPHILS % (AUTO) 6.7 % (0-5); MONOCYTES % (AUTO) 0 % (4-12); Mean Corpuscular Volume 82.6 fL (81-100); NEUTROPHILS % (AUTO) 6.6 % (40-74); Platelet Count 44 bil/L (150-400)
[2016-12-24 12:31] LABS: TROPONIN T 0.019 ug/L (0.0-0.011)
[2016-12-24 12:37] LABS: APPEARANCE,URINE HAZY (CLEAR,HAZY); COLOR,URINE YELLOW (YELLOW); OCCULT BLOOD,URINE NEGATIVE (NEGATIVE); UROBILINOGEN,URINE NORMAL (NORMAL)
[2016-12-24 12:42] LABS: Magnesium 1.6 mg/dL (1.6-2.6)
[2016-12-24] MEDS ORDERED: Meropenem Inj 1,000 MG in 0.9% Sodium Chloride 100 ML IV ONE (13:20)
[2016-12-24] MEDS ORDERED: NAPR220C11 PO (13:34)
[2016-12-24] MEDS ORDERED: Ondansetron 2 mg/mL 2 mL Inj IVPUSH PRN (13:35)
[2016-12-24] MEDS ORDERED: Meropenem Inj 1,000 MG in 0.9% Sodium Chloride 50 ML IV ONE (13:43)
--- NOTE | 2016-12-24 14:31 | PCM.HPMED ---
Subjective Date of Service December 24, 2016 Primary Provider: Admitting Physician: Primary Care Physician: Bob Velarde MD Attending Physician: Chief Complaint: fever History of Present Illness: 71yo M w/ acute myelogenous leukemia in remission, recent complicated hospitalization in [facility] with neutropenic fever, pseudmonas bactremia, cellulitis. then pt was hospitalized for consolidation chemotherapy with simón-C and idarubicin, discharged about 10 days ago. pt was seen by while he got transfusion in Cancer center with 2 units packed red blood cells and 2 units of platelets after premedication with Tylenol 650 mg by mouth and hydrocortisone 50 mg IV. After patient went home, pt felt okay, noticed some pain on his nose, pt had dinner well, good appetite, no n/v. pt denied diarrhea , cough, sputum. then pt woke up 3am with fever, 100, pt called oncall Oncologist, who recommended tylenol, pt took 2tab but later in the morning, [id number]. decided to come to hospital. noticed that his nose became more red and tender. Therefore, pt used topical antibiotics twice yesterday for his nose. pt denied pimple any shaving or skin breaks around his nose. pt also had some white, thin watery runny nose this week but was not worsened. Pt otherwise denied neck pain or dysphagia, ear discharge. PICC line was dressed yesterday. denied sick contacts, travel, chest pain, SOB. scrotal swelling. ED VS [id number], 83, 16, 100%on RA, patient had fever 38.3, received one dose meropenem. CBC yesterday was WBC 0.2, hemoglobin 7.4, hematocrit 21.1%, platelets 22,000. today showed WBC0.2, neut6.6%. CXR unremarkable.Dr.Lucas- Mancia spoke to , , recommended meropenem. Review of Systems: Pertinent positives as noted in history of present illness. All other systems were reviewed and are negative Allergies Coded Allergies: atenolol (Verified Allergy, Severe, hives, 12/09/16) doxycycline (Verified Adverse Reaction, Severe, abdominal cramping, ) amlodipine (Verified Adverse Reaction, Intermediate, ankle swelling, ) cetirizine (Verified Adverse Reaction, Intermediate, prostate issues, 12/09) hydrochlorothiazide (Verified Adverse Reaction, Intermediate, headache, ) hydrocodone (Verified Adverse Reaction, Intermediate, upset stomach, ) lisinopril (Verified Adverse Reaction, Intermediate, low sodium, 12/09/16) piroxicam (Verified Adverse Reaction, Intermediate, low iron, 12/09/16) oxycodone (Verified Adverse Reaction, Unknown, causes insomnia, 12/09/16) Home Medications Scheduled Cholecalciferol (Vitamin D3) (Vitamin D3) 4,000 Unit Capsule 4,000 UNIT PO DAILY Cyanocobalamin (Vitamin B12) 500 Mcg Tablet 1,000 MCG PO DAILY Diltiazem ER (Cartia XT) 120 Mg Cap.er.24h 120 MG PO QAM Gluc 2Kcl/Chondr/Ratna Hy/Hy AC (Glucosamine & Chondroitin Cap) 1 Each Capsule 1 EACH PO DAILY Levofloxacin (Levaquin) 500 Mg Tablet 500 MG PO DAILY Lorazepam (Ativan) 1 Mg Tablet 1 MG PO HS Magnesium Citrate (Magnesium Citrate) 100 Mg Tablet 100 MG PO DAILY Melatonin (Melatonin) 3 Mg Tablet.er 3 MG PO HS Multivitamin (Once Daily) 1 Each Tablet 1 EACH PO DAILY [place]-3 Fatty Acids (Fish Oil) 300 Mg Capsule 900 MG PO DAILY Omeprazole (Omeprazole) 20 Mg Capsule.dr 20 MG PO QAM Ubidecarenone (Coq-10) 100 Mg Capsule 100 MG PO DAILY Scheduled PRN Acetaminophen (Tylenol Arthritis) 650 Mg Tablet.er 1,300 MG PO DAILY PRN PRN For Pain Clobetasol Propionate (Clobetasol Propionate) 15 Gm Oint...g. 1 APPLIC TOPICAL DAILY PRN PRN scalp itching Naproxen Sodium (Aleve) 220 Mg Capsule 220 MG PO BID PRN PRN For Pain Sildenafil Citrate (Viagra) 100 Mg Tablet 50 MG PO DAILY PRN PRN for sexual activity PMH PMH Pertinent for AML, hypertension, hypospadias, rash, diverticular low cysts, BPH , hyponatremia, herpes labialis Surgical History Pertinent for bilateral hip replacements, spinal surgery for arthritis lash fusion of L4 L5-S1, bilateral inguinal hernia repair, tonsillectomy Family History Unspecified malignancy in grandmother Social History Hx Alcohol Use: No Hx Substance Use: No Smoking Status: Former Smoker Exam Vital Signs Vital Sign - Last Date Time Temp Pulse Resp B/P Pulse Ox O2 Delivery O2 Flow Rate FiO2 12/24/16 11:43 76 13 141/74 99 Room Air 12/24/16 10:16 37.3 Exam NAD, comfortably laying down on the bed no JVD, MMM, no cervical lymphadenopathy, NOSE: mild erythem/swelling/tenderness on tip of nose, no ulcers, skin breaks, mild erythematous nasal mucosa bilaterally RRR, nl s1, s2 no mrg CTAB, no w,c S,ND,NT,normoactive BS+ warm, no edema, pulses 2/2 Lab and Diagnostics Result Diagram: 12/24/16 1115 12/24/16 1145 X-Rays, CTs and MRIs PROCEDURE: X-RAY CHEST ONE VIEW, PORTABLE ([id number]) INDICATIONS: neutropenic fever TECHNIQUE: One view of the chest was acquired. COMPARISON: 12/12/2016 FINDINGS: Surgical changes and devices: Left-sided PICC line with tip overlying the SVC. Lungs and pleura: No pleural effusions or pneumothorax. Lungs are clear. Mediastinum: Mediastinal contours appear normal. Heart size is normal. Bones and chest wall: No suspicious bony lesions. Overlying soft tissues appear unremarkable. IMPRESSION: No acute cardiopulmonary abnormality. Left-sided PICC line in place. Dictated by: Yonis Cannon M.D. on 12/24/2016 at 11:39 Approved by: Yonis Cannon M.D. on 12/24/2016 at 11:41 Assessment & Plan Acute, active #neutropenic fever, POA, source of infection: possibley nasal cellulitis, infection related to blood products, possible viral URI. No SIRS, HD stable. UA neg. -will finish routine infectious w/u, resp PCR, BCX -appreciate ID input -trend fever curve, tylenol prn, -continue meropenem 2g q8h for now #chronic anemia, thrombocytopenia, POA, with AML in remission, s/p consolidation chemo of 5days of idarubicin IV, cytarabine (SIMÓN-C) 12/14. s/p 2units pRBC, 2PLT 12/23 -appreciate for blood products, further management, -PICC in place, dressed 12/23, seemed intact, no signs of infiltration chronic, stable #2 hypertension, continue patient's home medication Cardizem, losartan to 50 mg daily, 4 insomnia chronic, At bedtime melatonin, Ativan PO when necessary home med #5 patient is on cyanocobalamin /B 12: Plan to continue dispo:Patient will be admitted with inpatient status with expectation of inpatient therapy for more than 2 midnights diet:general diet dvt ppx:HSQ Full code Time spent 65min Eben Lucio MD December 24, 2016 13:37
[2016-12-24] MEDS ORDERED: Clobetasol Prop 0.05% 15 Gm Ointment TOPICAL PRN (14:45)
--- NOTE | 2016-12-24 16:00 | CONS ---
[address] [address] CONSULTATION REPORT PATIENT: JEFF AMEZCUA : 1945 MR#: [id number] ADMIT: 12/24/2016 JOB ID: [id number] INFECTIOUS DISEASE CONSULTATION: DATE OF SERVICE: 12/24/[address] Tyler Mancia and Dr. Lucio for this timely consult. REASON FOR CONSULTATION: Febrile neutropenia. HISTORY OF PRESENT ILLNESS: The patient is an unfortunate, 71-year-old gentleman who was diagnosed in September 2016 with AML. At the time of his initial presentation and evaluation, he was febrile and had multiple blood cultures which grew Pseudomonas. He was subsequently hospitalized for approximately 47 days with complications related to his AML and its treatment and extremely prolonged pancytopenia. He finally resolved his neutropenia, his fevers and other complications ended and he was discharged in good condition back on November 23. At that time, his pancytopenia had resolved, he was feeling well and we had stopped his posaconazole fungal prophylaxis a couple days before he was actually ready for discharge because he had developed an unexplained cholestatic hepatitis. We had also at that time, stopped his levofloxacin as well as his meropenem, as we were concerned about levo perhaps causing elevated LFTs and we did not think he needed it any longer. In any event, the patient was discharged home on about November 23 in good condition. The only proven infection during that long hospital stay was Pseudomonas in the blood and we found no evidence of herpes; as his HSV 1 and 2 serologies were negative. The patient was readmitted to this hospital for consolidation chemo during the week of December 09 until December 14. This was uncomplicated and even at the end of his induction chemo the patient had reasonable white cells and no fever. He had been prophylaxed however with Levaquin through his period of consolidation. Yesterday, he was seen by Dr. Balbuena in Oncology. At that time, was known that his white count had dropped to 200 because of consolidation chemo but he was clinically stable and without infection. He was given some red cells as well as platelets and the plan was to follow up in a week or so. Since his visit yesterday to [facility] when he was feeling relatively well, the patient has developed multiple symptoms overnight. He was awakened early this morning with fever and a severe headache which was a new symptom. The Hem/Onc on-crew caller was called and he was told to take Tylenol and observe his fever curve. Because of persistent fever, headache and the development of painful erythema of the nose, the patient called back Hem/Onc and was advised to come to the emergency department and be admitted, and they in turn, contacted me. Patient also notes he some URI type symptoms with rhinitis, sore throat, and these symptoms have been going on for a few days but they have been very mild. He has not had any significant shaking chills, though he feels quite cold at this point. No major sweats. Headache as noted but no confusion. He has had some mild sore throat but has been able to eat. He has had some degree of anorexia. No significant cough. No chest pain or shortness of breath; though he was a little short of breath prior to transfusions yesterday. He denies earaches. He has not had nausea, vomiting or diarrhea, though he does report some very mild right lower quadrant abdominal pain. No dysuria, urgency, frequency. No diarrhea. No swelling of the joints. No skin rash. No painful defecation. No sinus symptoms. PAST MEDICAL HISTORY: 1. AML diagnosed September 2016. 2. Pseudomonas sepsis, September 2016. 3. Hypertension. 4. Diverticulitis. 5. Status post lumbar spine surgery. 6. History of hydrochlorothiazide induced hyponatremia. 7. Status post bilateral hip replacements. 8. BPH. SOCIAL HISTORY: The patient is an ex-smoker but has not smoked for many years. He was last in [facility], about three years ago. No extensive travel history. He does not drink alcohol. Does not use illicit drugs. FAMILY HISTORY: Negative for TB in first or second-degree relatives. REVIEW OF SYSTEMS: The patient reports the headache just started within the last 24 hours in association with fever and a sensation of being cold but no shaking chills, rigors, or sweats. He has had no change in vision. No confusion. He has had a mild sore throat which actually predates his other symptoms. There has been no odynophagia or dysphagia. No stiffness of the neck. No significant cough, shortness of breath or chest pain. He has some exertional dyspnea related to his anemia from his leukemia however. He does have some very mild right lower quadrant pain subjectively. No nausea, vomiting, diarrhea, though he has had anorexia. No dysuria, urgency, or frequency. No painful defecation. No diarrhea. No swollen joints. No problems with his left upper extremity PICC line and no notable skin rash. No neurologic symptoms.Remainder of the ROS unremarkable. PHYSICAL EXAMINATION: Reveals a febrile somewhat ill-appearing gentleman, who looks much different than when I saw him walk into the chew last week when he was getting consolidation chemo. Temperature 38.3 right now, pulse 88, respiratory rate 16, blood pressure 115/67. He is saturating well on room air. In no acute distress. Examination of the head reveals no trauma. No temporal wasting. Eyes without conjunctivitis or scleral icterus. His nose is grossly erythematous, particularly on the left side of his nose, he has a tender erythematous rash which would appear to fulfill the definition of vestibulitis. There are no herpetic type lesions to go along with Costa sign nor is there any dark or necrotic mucosa within the nose to suggest mucor. His palate is likewise unremarkable. There is no ischemic or dark lesions of the palate. He has no evidence of pharyngitis. His teeth are reasonably intact. No gingivitis. Neck is supple. He does have palatal petechia which he has throughout his illness as a manifestation of his thrombocytopenia presumably. His lungs are reasonably clear. Cardiac tones regular rate and rhythm without murmur. Left upper extremity PICC line is mildly erythematous at its insertion site which has been the case literally as long as he has had that PICC line. His abdomen is soft and nontender except in the right lower quadrant where there is some very minimal tenderness to deep palpation. He does not have a Gill catheter. His suprapubic area is benign. No tenderness or fullness. No swelling of any of the joints. No skin rashes noted. He is neurologically intact though he feels weak overall because of his fever and malaise. No other notable skin lesions such as ecthyma are noted. LABORATORY STUDIES: Include white count 700 four days ago without a diff, and 200 yesterday and today with the diff showing only 7% neutrophils for a total neutrophil count of about 20. Creatinine 0.45. LFTs normal. Albumin 4. Urinalysis without white cells. During the last admission, we had multiple Fungitell and galactomannan assays all of which are negative. Micro includes two blood cultures drawn this morning in the ER. During the last admission, we had the initial blood cultures positive for Pseudomonas followed by a long series of negative blood cultures. The urine grew Enterococcus faecalis early in his stay. MRSA screen was done and was negative during the last admission, and his C. difficile PCR was also negative. IMAGING: From today includes a chest x-ray, which is clear. IMPRESSION: This is a challenging case of a gentleman who had a 47 day hospital stay for the acute induction of acute myeloid leukemia that started in September. He went home in early November and did well until he got consolidation chemo and got through that quite well and finished it more than a week ago. Unfortunately as his counts have nadired following the consolidation chemotherapy, he has developed additional fevers. The differential diagnosis for these fevers is broad and includes the usual bacterial viral and fungal suspects. Clues here include his red nose which could be consistent with Staphylococcus aureus vestibulitis, an incipient VZV infection or even conceivably mucor, though I see no evidence for that at this point. Likewise, the patient has had URI symptoms suggesting that he could have a viral infection though one would never initially tumble to the idea that a febrile neutropenic episode is viral because at a much higher risk and danger of having a bacterial infection. It is possible the patient could have a deep-seated fungal infection as we stopped posaconazole prophylaxis a little over a month ago. Possibility he is bacteremic due to his PICC line or perhaps from translocation of bacteria in the gut also exist. RECOMMENDATIONS: 1. Will check a respiratory viral PCR panel. 2. MRSA screen of the nares. 3. Blood cultures are pending. 4. Chest x-ray has been done and reviewed and since he has no symptoms I see no reason to jump to a CT scan at this time. 5. His initial antibiotic in the ER was meropenem alone, but in view of the fact that he was on levofloxacin at home, the literature suggests that we will need antibiotic that would cover for highly resistant viridans Strep. In this case, I think vancomycin would be a reasonable choice and will ask the pharmacy to add vanco. 6. Will continue with meropenem. 7. Given his negative serologies for HSV 1 and 2, we do not need to cover for the possibility of herpes in the nose, though if he did develop a blister over the nose, it would probably represent early stages of ocular zoster and we would want to add immediately high-dose IV acyclovir. 8. Antifungal prophylaxis might reasonably be considered, but I am inclined not to given the fact we got in troubles with cholestatic hepatitis presumably due to posaconazole on his last admission. So will hold off for a bit while we await additional data. I think waiting a little bit to add antifungal therapy is especially a good idea here as we have the nose infection which I think it is the root of his neutropenic fever at this point. 9. Fungitell and galactomannan should be rechecked today. MTDD
[2016-12-24] MEDS: Vancomycin Dose per Pharmacist XX SCH (16:40)
--- NOTE | 2016-12-24 16:46 | PCM.CONPHA ---
Subjective Date of Service: December 24, 2016 Requesting Provider: Jorge Luis Hackett MD neutropenic fever History of Present Illness recent diagnosed AML in Sep, resultant of 47 days of hospitalization Reason for Pharmacy Consult: Vancomycin Dosing Objective Vital Signs Date Time Temp Pulse Resp B/P Pulse Ox O2 Delivery O2 Flow Rate FiO2 12/24/16 15:21 38.9 93 16 164/68 98 Room Air 12/24/16 15:14 38.3 82 16 155/67 98 Room Air 12/24/16 14:05 38.3 82 16 155/67 98 Room Air 12/24/16 11:43 76 13 141/74 99 Room Air 12/24/16 10:16 37.3 83 16 146/83 100 Room Air Weight (Kilograms): 80 Height (Feet): 6 Height (Inches): 0 Test 12/24/16 11:15 12/24/16 11:45 12/24/16 12:04 White Blood Count 0.2th/mm3 (3.8-10.1) Red Blood Count 2.87mil/mm3 (4.40-5.80) Hemoglobin 8.6g/dL (13.8-17.2) Hematocrit 23.7% (41.0-50.0) Mean Corpuscular Volume 82.6fL (81-100) Mean Corpuscular Hemoglobin 30.0pg (27.0-35.0) Mean Corpuscular Hemoglobin Concent 36.3% (32.0-37.0) Red Cell Distribution Width 14.1% (12.3-15.4) Platelet Count 44bil/L (150-400) Neutrophils (%) (Auto) 6.6% (40-74) Lymphocytes (%) (Auto) 80.0% (14-46) Monocytes (%) (Auto) 0% (4-12) Eosinophils (%) (Auto) 6.7% (0-5) Basophils (%) (Auto) 6.7% (0-3) Sodium Level 133mEq/L (134-144) Potassium Level 4.0mEq/L (3.5-5.2) Chloride Level 96mEq/L (97-108) Carbon Dioxide Level 23mmol/L (18-29) Blood Urea Nitrogen 16mg/dL (8-27) Creatinine 0.45mg/dL (0.76-1.27) Estimat Glomerular Filtration Rate 196mL/min (>59) Glucose Level 113mg/dL (60-99) Lactic Acid Level 0.8mmol/L (0.4-2.0) Calcium Level 9.5mg/dL (8.5-10.1) Magnesium Level 1.6mg/dL (1.6-2.6) Total Bilirubin 0.9mg/dL (0.0-1.2) Aspartate Amino Transf (AST/SGOT) 23U/L (0-50) Alanine Aminotransferase (ALT/SGPT) 30U/L (0-44) Alkaline Phosphatase 96U/L (25-160) Troponin T 0.019ug/L (0.0-0.011) Total Protein 5.8g/dL (6.4-8.4) Albumin 4.0g/dL (3.4-5.0) Urine Color Yellow (YELLOW) Urine Appearance Hazy (CLEAR,HAZY) Urine pH 7.0 (5.0-8.0) Urine Specific [place] 1.015 (1.003-1.035) Urine Protein Negativemg/dL (NEG,TRACE) Urine Glucose (UA) Negativemg/dL (NEGATIVE) Urine Ketones Negativemg/dL (NEGATIVE) Urine Occult Blood Negative (NEGATIVE) Urine Nitrite Negative (NEGATIVE) Urine Bilirubin Negative (NEGATIVE) Urine Urobilinogen Normalmg/dL (NORMAL) Urine Leukocyte Esterase Negative (NEGATIVE) Urine RBC 0-2/hpf (0-2) Urine WBC 0-5/hpf (0-5) Urine Epithelial Cells Occasional/hpf (NONE-MOD) Urine Crystals None seen (NONE SEEN) Urine Bacteria Few/hpf (NONE-FEW) Urine Hyaline Casts None/lpf (NONE) Urine Granular Casts Occasional (NONE SEEN) Urine Waxy Casts None seen (NONE SEEN) Urine Red Blood Cell Casts None seen (NONE SEEN) Urine White Blood Cell Casts None seen (NONE SEEN) Urine Mucus Present (None Seen) Urine Trichomonas None seen (NONE SEEN) Urine Yeast None (NONE SEEN) Urinalysis Comment None Urine Culture Reflexed Not indicated Assessment/Plan Assessment/Plan A/ - Very pleasant 71 y/o gentleman required Vancomycin therapy (along with Meropenem) to empirically cover for neutropenic fever. He was diagnosed with AML last September - Febrile, WBC: 0.2; blood cultures, MRSA and virus screen are pending - Dr. Balbuena and Dr. Hackett know well of patient and follow him - Wt: 80 kg, ht: 182.9 cm, SCr: 0.46 mg/dL, estimated clearance (being conservative due to high age) ~75ml/min P/ - Give Vancomycin 1G iv q12h. Trough level ordered before 3rd dose @1630 on . This regimen would produce a trough around 15-16 Pharmacy will continue to follow Thank you for consulting clinical pharmacy Nirmal Hernandez December 24, 2016 16:46
--- NOTE | 2016-12-24 16:56 | NUR ---
Admit Patient arrived to room 1018 from ER being admitted for Neutropenic fever. and possible cellulitis of left nare. Patient does have redness to left side of nose . Patient febrile with temp 102.0 upon arrival to floor. Tylenol was given in . Patient admitted by admit nurse . Patient is familiar with hospital admission as was just discharged 10 days ago .
[2016-12-24] MEDS ORDERED: Vancomycin Inj 1,000 MG in IV Premix 1 EACH IV SCH (17:00)
[2016-12-24] MEDS: Heparin 5,000 Unit/mL Inj SUBQ SCH ×2 (20:30→20:50)
[2016-12-24] MEDS: LORazepam 1 mg Tablet PO SCH (20:50)
[2016-12-24] MEDS: Meropenem Inj 2,000 MG in 0.9% Sodium Chloride 100 ML IV SCH (21:12)
[2016-12-25] VITALS (14 sets, daily range): BP systolic 116–150; BP diastolic 50–72; PULSE 63–92; RESP 12–20; O2SAT 96–100
[2016-12-25] MEDS ORDERED: Vancomycin Inj 1,500 MG in 0.9% Sodium Chloride 500 ML IV ONE (00:30)
--- NOTE | 2016-12-25 03:55 | NUR ---
temperature Pt febrile all shift, at start of shift low grade- 37.9- had rec'd tylenol 975mg from morning shift. Following temps were 38.4, 39.3 and 39.3. MD aware, tylenol 975mg was administered . Pt c/o headache at start of shift which subsided. No other c/o pain. Pt states he feels a sore on the inside of his left nostril and his nose is red and swollen on the left side. Continues on ABO. Care continues
[2016-12-25] MEDS: Meropenem Inj 2,000 MG in 0.9% Sodium Chloride 100 ML IV SCH ×3 (05:20→22:00)
[2016-12-25 05:57] LABS: Mean Corpuscular Hemoglobin 29.6 pg (27.0-35.0); Mean Corpuscular Volume 84.7 fL (81-100); Platelet Count 27 bil/L (150-400)
[2016-12-25 06:27] LABS: Magnesium 1.6 mg/dL (1.6-2.6); Phosphorus 3.4 mg/dL (2.5-4.9)
[2016-12-25] MEDS: Pantoprazole 40 mg ER24 Tablet PO SCH (06:40)
--- NOTE | 2016-12-25 08:15 | PCM.PNMED ---
Subjective Date of Service December 25, 2016 Subjective Patient is seen and examined. He complains of fevers and chills. Nursing mild headache, no vision changes, no back pain. He states that his headaches were much worse yesterday. He is on vancomycin and meropenem per ID. Exam Vital Signs Vital Sign - Last Date Time Temp Pulse Resp B/P Pulse Ox O2 Delivery O2 Flow Rate FiO2 12/25/16 05:41 82 12/25/16 04:53 39.5 12/25/16 02:56 16 137/70 98 Room Air Intake and Output 12/24/16 12/24/16 12/25/16 Cumulative From/Thru 15:00 23:00 07:00 12/24/16 10:16 - 12/25/16 05:36 Intake Total 300 ml 2239 ml 2539 ml Output Total 350 ml 1900 ml 2250 ml Balance -50 ml 339 ml 289 ml Intake Oral 300 ml 1380 ml 1680 ml IV Total 859 ml 859 ml Output Urine Total 350 ml 1900 ml 2250 ml # Bowel Movements 0 0 Exam Gen.: Patient is using a lot of blankets trying to stop warm HEENT: Thin-appearing, tanned white male eyes: PERRLA, normal extraocular movements Heart: Low-grade systolic murmur, regular rate and rhythm lungs: Clear to auscultation, no crackles or wheezes Abdomen nondistended Skin: His PICC line site on his left arm is intact, no visible erythema or infection arthritis Extremities: Negative for edema negative for tenderness Neurological: CN through 2 through 12 are grossly normal, gagging deferred. Withdraws to Babinski is. Patellar reflexes could not be elicited, alert and oriented by 3, no focal deficits Psych: Negative for anxiety IVs and Medications Medications Reviewed: Medications were reviewed in detail Lab and Diagnostics Result Diagram: 12/25/1652912/25/1630 X-Rays, CTs and MRIs PROCEDURE: X-RAY CHEST ONE VIEW, PORTABLE ([id number]) INDICATIONS: neutropenic fever TECHNIQUE: One view of the chest was acquired. COMPARISON: 12/12/2016 FINDINGS: Surgical changes and devices: Left-sided PICC line with tip overlying the SVC. Lungs and pleura: No pleural effusions or pneumothorax. Lungs are clear. Mediastinum: Mediastinal contours appear normal. Heart size is normal. Bones and chest wall: No suspicious bony lesions. Overlying soft tissues appear unremarkable. IMPRESSION: No acute cardiopulmonary abnormality. Left-sided PICC line in place. Dictated by: Yonis Cannon M.D. on 12/24/2016 at 11:39 Approved by: Yonis Cannon M.D. on 12/24/2016 at 11:41 Assessment & Plan Acute, active #neutropenic fever, POA, source of infection: possibley nasal cellulitis, infection related to blood products, possible viral URI. No SIRS, HD stable. UA neg. -will finish routine infectious w/u, resp PCR, BCX: Chest x-ray is negative, respiratory panel negative, we will send UA. Blood cultures still pending -appreciate ID input -trend fever curve, tylenol prn, -continue meropenem 2g q8h for now, vancomycin is added by ID on 12/24. -- ID holding off on and off on those for now, due to concern for granulocytopenia -- We will hold off heparin or enoxaparin, his counts are too low he does not need it. -- We will contact Dr. Hackett regarding an LP if need be #chronic anemia, thrombocytopenia, POA, with AML in remission, s/p consolidation chemo of 5days of idarubicin IV, cytarabine (SIMÓN-C) 12/14. s/p 2units pRBC, 2PLT 12/23 -appreciate for blood products, further management, -PICC in place, dressed 12/23, seemed intact, no signs of infiltration -- Call Dr. Buenrostro who is cork insulation installer for oncology, he states that there is no need to do Neupogen in acute period. It is only used an preventive measures. -- Read through Dr. Balbuena's prev notes, "transfusions with irradiated leuko- poor blood products for hematocrit less than 25% and platelets less than 15,000.": called blood bank about irradiated+leuk reduced and they are aware. -- Will give 2 units of PRBC 12/24 chronic, stable #2 hypertension, continue patient's home medication Cardizem, losartan to 50 mg daily, 4 insomnia chronic, At bedtime melatonin, Ativan PO when necessary home med #5 patient is on cyanocobalamin /B 12: Plan to continue dispo:Patient will be admitted with inpatient status with expectation of inpatient therapy for more than 2 midnights. He will be discharged home and he is stable with respect to his cell counts, and he is afebrile diet:general diet dvt ppx:HSQ Full code Pain Evaluation: Adequate Pain Control VTE Prophylaxis: Other (not indicated, platelets too low) VTE Mechanical Devices: Intermittant Pneumatic CD Resuscitation Status: CPR: Attempt Resuscitation Amanda Currie DO December 25, 2016 08:15
[2016-12-25] MEDS ORDERED: levoFLOXacin 500 mg Tablet PO SCH (08:30)
[2016-12-25] MEDS: Omega-3 Fatty Acids 1,000 mg Capsule PO SCH (08:30)
[2016-12-25] MEDS: Vancomycin Dose per Pharmacist XX SCH (08:30)
[2016-12-25] MEDS: 0.9% Sodium Chloride 250 ML IV SCH (09:00)
[2016-12-25] MEDS: Vancomycin Inj 1,000 MG in IV Premix 1 EACH IV SCH ×2 (09:11→17:50)
[2016-12-25] MEDS: Diltiazem CD 120 mg ER24 Capsule PO SCH (09:14)
[2016-12-25] MEDS ORDERED: MethylprednisoLONE Sodium Succinate 62.5 mg/mL 2 mL Inj IVPUSH ONE (11:45)
--- NOTE | 2016-12-25 12:24 | NUR ---
PRBC / STAPLES / Temp Starting PRBCs 2 units. Pt has been having fluctuating temperatures throughout night and morning. Also c/o headache at this time. WIll continue to monitor as protocol for PRBCs. Care continues
--- NOTE | 2016-12-25 14:35 | NUR ---
Social Work:Initial Assessment Late note- Initial Assessment completed 12/11/16. Data: EMR reviewed/ Pt is a case management readmission. Pt is a 71 year old male admitted 10/24/16 for neutropenic, fever, cellulitis per H&P. Pt's insurance is [employer]. Pt resides at home with his where he receives minimal assistance with his ADLs. [place] and does not drive. Pt has used [facility] in the past, no SNF history. Pt has no VA or LTC benefits. SW confirmed pt has provided a copy of DPOA ppw to the hospital . Pt to discharge home with to transport. SW provided phone number and plan on whiteboard. No anticipated discharge needs. SW will continue to follow if needs arise. Assessment: Pt who is independent at baseline. Plan: Pt to discharge home with to transport via POV. No anticipated discharge needs. SW will continue to follow if needs arise. JAZMIN Carr Addendum: 12/25/16 at 1436 by CHEL SEGOVIA Amended: Links added.
[2016-12-25] MEDS ORDERED: Vancomycin Serum Trough XX ONE (16:30)
[2016-12-25 16:51] LABS: APPEARANCE,URINE CLEAR (CLEAR,HAZY); COLOR,URINE YELLOW (YELLOW); OCCULT BLOOD,URINE TRACE (NEGATIVE)
[2016-12-25] MEDS ORDERED: Sodium Chloride LOK Flush 10 mL Syringe IVFLUSH PRN ×2 (18:05)
--- NOTE | 2016-12-25 18:41 | NUR ---
PRBCs PRBCs 2 units given with no adverse effects. 50mg of Solu-medrol given IV prior to blood admin per MD Balbuena Verbal order. Pt has had fluctuating temperature prior to PRBCs given. Pt more alert and increased energy post PRBC admin. Will continue to monitor.
[2016-12-25] MEDS: LORazepam 1 mg Tablet PO SCH (22:24)
[2016-12-26] VITALS (8 sets, daily range): BP systolic 120–154; BP diastolic 62–71; PULSE 70–92; RESP 16–22; O2SAT 94–98
[2016-12-26] MEDS: Vancomycin Inj 1,000 MG in IV Premix 1 EACH IV SCH ×3 (01:12→17:29)
--- NOTE | 2016-12-26 04:00 | NUR ---
CV; low grade fever this shift. Pt sleeping well. No c/o voiced.
[2016-12-26] MEDS: Meropenem Inj 2,000 MG in 0.9% Sodium Chloride 100 ML IV SCH ×3 (04:52→21:53)
[2016-12-26 06:10] LABS: Mean Corpuscular Hemoglobin 29.8 pg (27.0-35.0); Mean Corpuscular Volume 82.1 fL (81-100)
[2016-12-26] MEDS: Pantoprazole 40 mg ER24 Tablet PO SCH (06:30)
[2016-12-26] MEDS ORDERED: Vancomycin Serum Trough XX ONE ×2 (07:30)
[2016-12-26] MEDS: Vancomycin Dose per Pharmacist XX SCH (08:30)
[2016-12-26] MEDS: Omega-3 Fatty Acids 1,000 mg Capsule PO SCH (08:49)
[2016-12-26] MEDS: Diltiazem CD 120 mg ER24 Capsule PO SCH (08:49)
[2016-12-26] MEDS: 0.9% Sodium Chloride 250 ML IV SCH (09:00)
--- NOTE | 2016-12-26 13:54 | PCM.PHAPRO ---
Progress neutropenic fever Vancomycin trough drawn 3 hours late with a result of 11.1. Trough would have been at or near therapeutic level. New trough to be drawn on 12/27 at 0730. Collin Cohen Pharm.D December 26, 2016 13:54
--- NOTE | 2016-12-26 18:59 | PCM.PNMED ---
Subjective Date of Service December 26, 2016 Subjective Patient is feeling better today in spite of fevers. He is doing a good job of drinking fluids and eating a bit better. He is up and walking today. His says abdomen is a bit distended,, had headaches earlier in the day. He denies back pain, neck pain, urinary symptoms. Exam Vital Signs Vital Sign - Last Date Time Temp Pulse Resp B/P Pulse Ox O2 Delivery O2 Flow Rate FiO2 12/26/16 18:31 36.8 12/26/16 15:22 85 19 134/64 96 Room Air Intake and Output 12/25/16 12/25/16 12/26/16 Cumulative From/Thru 15:00 23:00 07:00 12/24/16 10:16 - 12/26/16 06:43 Intake Total 3250 ml 2222 ml 8011 ml Output Total 1450 ml 750 ml 4450 ml Balance 1800 ml 1472 ml 3561 ml Intake Oral 2400 ml 1200 ml 5280 ml IV Total 250 ml 1022 ml 2131 ml Packed Cells 600 ml 600 ml Output Urine Total 1450 ml 750 ml 4450 ml # Voids 2 2 # Bowel Movements 0 0 Exam General: No acute distress HEENT: Normocephalic, atraumatic Heart: : Regular rate and rhythm without S3-S4 murmurs Lungs clear to auscultation no crackles or wheezes Abdomen: Soft nontender normal bowel sounds, nontender tympanic to percussion Extremities: Negative for edema Neuro: No focal deficits Psych: Negative for agitation and anxiety IVs and Medications IV Fluids NSS 100 cc/hr Medications Reviewed: Medications were reviewed in detail Lab and Diagnostics Result Diagram: 12/26/16 0600 12/26/16 1022 X-Rays, CTs and MRIs PROCEDURE: X-RAY CHEST ONE VIEW, PORTABLE ([id number]) INDICATIONS: neutropenic fever TECHNIQUE: One view of the chest was acquired. COMPARISON: 12/12/2016 FINDINGS: Surgical changes and devices: Left-sided PICC line with tip overlying the SVC. Lungs and pleura: No pleural effusions or pneumothorax. Lungs are clear. Mediastinum: Mediastinal contours appear normal. Heart size is normal. Bones and chest wall: No suspicious bony lesions. Overlying soft tissues appear unremarkable. IMPRESSION: No acute cardiopulmonary abnormality. Left-sided PICC line in place. Dictated by: Yonis Cannon M.D. on 12/24/2016 at 11:39 Approved by: Yonis Cannon M.D. on 12/24/2016 at 11:41 Assessment & Plan Acute, active #neutropenic fever, POA, source of infection: possibly nasal cellulitis, infection related to blood products, possible viral URI. No SIRS, HD stable. UA neg. -will finish routine infectious w/u, resp PCR, BCX: Chest x-ray is negative, respiratory panel negative, we will send UA. Blood cultures still pending --appreciate ID input --continue meropenem 2g q8h for now, vancomycin is added by ID on 12/24. -- We will hold off heparin or enoxaparin, his counts are too low he does not need it. -- Fevers are still ongoing as though, he has had fewer episodes on 12/26 than on 12/25 -- Positive nasal MRSA, negative blood cultures so far, chest x-ray negative, UA negative #chronic anemia, thrombocytopenia, POA, with AML in remission, s/p consolidation chemo of 5days of idarubicin IV, cytarabine (SIMÓN-C) 12/14. s/p 2units pRBC, 2PLT 12/23 -appreciate for blood products, further management, -PICC in place, dressed 12/23, seemed intact, no signs of infiltration -- Called Dr. Buenrostro who is avionics test technician for oncology, he states that there is no need to do Neupogen in acute period. It is only used an preventive measures. -- Read through Dr. Balbuena's prev notes, "transfusions with irradiated leuko- poor blood products for hematocrit less than 25% and platelets less than 15,000. ": called blood bank about irradiated+leuk reduced and they are aware. -- Gave 2 units of PRBC 12/24 -- Holding off platelets as his platelet count was still > 15 on 12/26 Hyponatremia: Likely due to hypovolemia -- Normal saline 100 mL/h -- Ordered urine osmolality, serum muscularity, urine sodium 12/26 chronic, stable #2 hypertension, continue patient's home medication Cardizem 4 insomnia chronic, At bedtime melatonin, Ativan PO when necessary home med #5 patient is on cyanocobalamin /B 12: Plan to continue dispo:Patient will be admitted with inpatient status with expectation of inpatient therapy for more than 2 midnights. He will be discharged home and he is stable with respect to his cell counts, and he is afebrile. diet:general diet dvt ppx:HSQ Full code VTE Prophylaxis: Other (not indicated, platelets too low) VTE Mechanical Devices: Intermittant Pneumatic CD Resuscitation Status: CPR: Attempt Resuscitation Time spent 20 minutes Amanda Currie DO December 26, 2016 18:59
--- NOTE | 2016-12-26 19:15 | NUR ---
Fevers Fevers continue but do seem more controlled. Pt has more energy today and looks much better. Will continue to monitor.
[2016-12-26 20:22] LABS: OSMOLALITY, URINE 253 mOs/kH2O (250-1200)
[2016-12-26] MEDS: LORazepam 1 mg Tablet PO SCH (21:54)
[2016-12-26] MEDS: 0.9% Sodium Chloride 1,000 ML IV SCH (21:55)
[2016-12-27] VITALS (23 sets, daily range): BP systolic 104–150; BP diastolic 56–82; PULSE 47–130; RESP 12–20; O2SAT 96–100
[2016-12-27] MEDS: Vancomycin Inj 1,000 MG in IV Premix 1 EACH IV SCH ×3 (00:25→18:31)
--- NOTE | 2016-12-27 01:43 | NUR ---
CV; afebrile this shift. Sleeping well. Antibiotics continue.
[2016-12-27] MEDS: Meropenem Inj 2,000 MG in 0.9% Sodium Chloride 100 ML IV SCH ×3 (03:38→22:47)
[2016-12-27] MEDS: 0.9% Sodium Chloride 1,000 ML IV SCH ×3 (03:38→17:33)
[2016-12-27 05:22] LABS: BASOPHILS % (AUTO) 0 % (0-3); EOSINOPHILS % (AUTO) 2.8 % (0-5); MONOCYTES % (AUTO) 19.4 % (4-12); Mean Corpuscular Hemoglobin 29.2 pg (27.0-35.0); Mean Corpuscular Volume 83.7 fL (81-100); NEUTROPHILS % (AUTO) 47.2 % (40-74)
[2016-12-27 05:27] LABS: Platelet Count 14 bil/L (150-400)
--- NOTE | 2016-12-27 06:35 | NUR ---
ROLL GRINDER; reports pt now in afib 130's. No h/o noted. Asymptomatic. Febrile. Dr. Lock "[place] paged" at 0630 and telecom coordinator ordered stat ekg.
--- NOTE | 2016-12-27 06:55 | NUR ---
EKG; done. Report given to day shift rn and will follow.
[2016-12-27] MEDS ORDERED: Potassium Chloride 20 mEq SR Tablet PO ONE (07:15)
[2016-12-27] MEDS ORDERED: Diltiazem 5 mg/mL 5 mL Inj IVPUSH ONE (07:15)
[2016-12-27 07:59] LABS: Magnesium 1.6 mg/dL (1.6-2.6); TROPONIN T 0.034 ug/L (0.0-0.011)
[2016-12-27] MEDS: Pantoprazole 40 mg ER24 Tablet PO SCH (08:28)
[2016-12-27] MEDS: Vancomycin Dose per Pharmacist XX SCH (08:30)
[2016-12-27] MEDS: Diltiazem CD 120 mg ER24 Capsule PO SCH (08:31)
[2016-12-27] MEDS: Omega-3 Fatty Acids 1,000 mg Capsule PO SCH (08:40)
--- NOTE | 2016-12-27 08:41 | PROG NOTE ---
[address] [address] PROGRESS NOTE PATIENT: JEFF AMEZCUA : 1945 MR#: [id number] ADMIT: 12/24/2016 JOB ID: [id number] DATE: 12/27/2016 SUBJECTIVE: The patient is a 71-year-old gentleman with acute myelogenous leukemia, in remission. He has previously undergone induction, re-induction, and most recently, consolidation chemotherapy with leonor-C and idarubicin. He was hospitalized on December 24, 2016, with febrile neutropenia. Cultures during this current hospitalization show MRSA from a nasal lesion, but blood cultures are negative. He had a previous Enterococcus faecalis in his urine and in a sample from October 08, 2016, and Pseudomonas aeruginosa in blood from a culture that same date, but no subsequent positive cultures. He is on broad-spectrum antibiotic coverage with meropenem and vancomycin, guided by Dr. Hackett. Additional testing for galactomannan and fungal antibodies are pending. He has been intermittently febrile. He has required transfusion support over the weekend with 2 units packed red blood cells. Earlier this morning, he was noted to be in atrial fibrillation, which is new. He denies any chest pain. He does have dyspnea. OBJECTIVE: Vitals: T 38.5, P 130, R 20, BP 150/72, O2 saturation 96% on room air. HEENT: Conjunctivae pale. Mucous membranes moist. No oral lesions. Prior nasal lesion is improved. Nodes: No adenopathy in the neck or axilla. Chest: Slightly decreased at the bases. Cardiac exam: Tachycardic with occasional irregular beat. Abdomen: Soft, nontender. Normoactive bowel tones. No splenomegaly or masses. Mildly distended. Extremities: No edema. 2+ distal pulses. No calf tenderness. LABORATORIES: WBC 0.4, hemoglobin 8.6, hematocrit 24.7%, platelets 14,000. Sodium 131, potassium 3.6, BUN 14, creatinine 0.43, glucose 112. AST 94, ALT 172, alkaline phosphatase 155. Total protein 4.8, albumin 2.8. TSH 1.08, free T4 of 1.22. ASSESSMENT AND PLAN: 1. Acute myelogenous leukemia, in complete remission following induction and re-induction chemotherapy: The patient received recent consolidation chemotherapy with five days of leonor-C and two days of idarubicin. He has associated pancytopenia. Type and cross. Transfuse 2 units packed red blood cells and 2 units platelets today after premedication with Tylenol 650 mg by mouth and hydrocortisone 50 mg IV. Avoid G-CSF, given the susceptibility to simulating a leukemic clone. Agree with broad-spectrum antibiotics with meropenem and vancomycin. Await results of testing for fungal antibodies, and adjust coverage as indicated. His white cell count is slowly increasing, which should lead to an improved immune system throughout this week and likely to defervescence. 2. Atrial fibrillation with rapid ventricular response: This is a new problem. It could be exacerbated by his anemia and, for this, I do recommend red cell transfusion as above. Thyroid function appears to be normal. Initial treatment with Cardizem has been initiated. The patient has had a hives reaction to ATENOLOL in the past, and should avoid beta blockers as part of his cardiac treatment.
[2016-12-27] MEDS ORDERED: Hydrocortisone 50 mg/mL 2 mL Inj IV ONE (08:55)
[2016-12-27] MEDS: 0.9% Sodium Chloride 250 ML IV SCH (09:00)
[2016-12-27] MEDS ORDERED: Magnesium Sulf 2 Gm/50mL Water 2 GM in IV Premix 1 EACH IV ONE ×2 (10:05→21:35)
--- NOTE | 2016-12-27 10:27 | NUR ---
AFIB Beginning of shift pt was in Afib. Placed pt on MP30 for nurse observation. Pt asymptomatic denying CP, SOB, Nausea, lightheadedness, pain. Diltiazem IV pushed as ordered. Per Telemetry pt converted back to SR @ 0907 this morning. Pt HR at this time 70-80s SR. MP30 removed; telemetry remains in use. Will continue to monitor.
--- NOTE | 2016-12-27 11:31 | NUR ---
Social Work-readiness for discharge: Data:EMR reviewed. Pt is on day 3 of hospitalization for neutropenic fever per h&P. pt is not medically stable anticipate 1-2 more days. Pt resides at home with his , pt has been up independent in his room. Pt's to provide transport home at discharge. No anticipated discharge needs. SW will continue to follow if needs arise. Assessment:Pt who is independent at baseline. Plan:Pt to discharge home when medically stable via POV. No anticipated discharge needs. SW will continue to follow if needs arise. JAZMIN Elizabeth
--- NOTE | 2016-12-27 12:53 | PCM.PNMED ---
Subjective Date of Service December 27, 2016 Subjective Continues to have fever. Had episode of new onset atrial fibrillation with RVR in 130s. cardizem push given. reverted back to NSR in 60's. Continues to have worsening of anemia and thrombocytopenia. Exam Vital Signs Vital Sign - Last Date Time Temp Pulse Resp B/P Pulse Ox O2 Delivery O2 Flow Rate FiO2 12/27/16 12:34 36.8 65 14 105/62 12/27/16 06:20 Room Air 12/27/16 05:07 96 Intake and Output 12/26/16 12/26/16 12/27/16 Cumulative From/Thru 15:00 23:00 07:00 12/24/16 10:16 - 12/27/16 06:30 Intake Total 3760 ml 2076 ml 10388 ml Output Total 1375 ml 1900 ml 7725 ml Balance 2385 ml 176 ml 6122 ml Intake Oral 3100 ml 1200 ml 9580 ml IV Total 660 ml 876 ml 3667 ml Packed Cells 600 ml Output Urine Total 1375 ml 1900 ml 7725 ml # Voids 4 6 # Bowel Movements 1 0 1 Exam General: No acute distress HEENT: Normocephalic, atraumatic Heart: : Regular rate and rhythm without S3-S4 murmurs Lungs clear to auscultation no crackles or wheezes Abdomen: Soft nontender normal bowel sounds, nontender tympanic to percussion Extremities: Negative for edema Neuro: No focal deficits Psych: Negative for agitation and anxiety IVs and Medications Medications Reviewed: Medications were reviewed in detail Lab and Diagnostics Result Diagram: 12/27/1644412/27/16444 X-Rays, CTs and MRIs PROCEDURE: X-RAY CHEST ONE VIEW, PORTABLE ([id number]) INDICATIONS: neutropenic fever TECHNIQUE: One view of the chest was acquired. COMPARISON: 12/12/2016 FINDINGS: Surgical changes and devices: Left-sided PICC line with tip overlying the SVC. Lungs and pleura: No pleural effusions or pneumothorax. Lungs are clear. Mediastinum: Mediastinal contours appear normal. Heart size is normal. Bones and chest wall: No suspicious bony lesions. Overlying soft tissues appear unremarkable. IMPRESSION: No acute cardiopulmonary abnormality. Left-sided PICC line in place. Dictated by: Yonis Cannon M.D. on 12/24/2016 at 11:39 Approved by: Yonis Cannon M.D. on 12/24/2016 at 11:41 Assessment & Plan Acute, active #neutropenic fever, POA, source of infection: possibly nasal cellulitis, infection related to blood products, possible viral URI. HD stable. UA neg. -will finish routine infectious w/u, resp PCR, BCX: Chest x-ray is negative, respiratory panel negative, Blood cultures negative 12/24 .reprat bcx 12/27 sent and pending --appreciate ID input --continue meropenem 2g q8h for now, vancomycin is added by ID on 12/24. -- We will hold off heparin or enoxaparin, his counts are too low he does not need it. -- Positive nasal MRSA, negative blood cultures so far, chest x-ray negative, UA negative # New onset Afib ,resolved -Patient had episode of atrial fibrillation with RVR today on 12/27. Resolved after Cardizem -Patient on Cardizem by mouth for hypertension. No history of atrial fibrillation -TSH requested #chronic anemia, thrombocytopenia, POA, with AML in remission, s/p consolidation chemo of 5days of idarubicin IV, cytarabine (SIMÓN-C) 12/14. s/p 2units pRBC, 2PLT 12/23 -appreciate for blood products, further management, -PICC in place, seemed intact, no signs of infiltration -- Read through Dr. Balbuena's prev notes, "transfusions with irradiated leuko- poor blood products for hematocrit less than 25% and platelets less than 15,000. ": -- Gave 2 units of PRBC 12/24.transfusion of 2PRBC and [address] Balbuena today 12/27 # Hyponatremia: Likely due to hypovolemia -- Normal saline 100 mL/h -- Ordered urine osmolality, serum muscularity, urine sodium 12/26 chronic, stable # hypertension, continue patient's home medication Cardizem # insomnia chronic, At bedtime melatonin, Ativan PO when necessary home med #5 patient is on cyanocobalamin /B 12: Plan to continue dispo:Patient will be admitted with inpatient status with expectation of inpatient therapy for more than 2 midnights. He will be discharged home and he is stable with respect to his cell counts, and he is afebrile. diet:general diet dvt ppx:HSQ Full code VTE Prophylaxis: Other (not indicated, platelets too low) VTE Mechanical Devices: Intermittant Pneumatic CD Resuscitation Status: CPR: Attempt Resuscitation Maksim Miller MD December 27, 2016 12:53
--- NOTE | 2016-12-27 14:19 | PROG NOTE ---
[address] [address] PROGRESS NOTE PATIENT: JEFF AMEZCUA : 1945 MR#: [id number] ADMIT: 12/24/2016 JOB ID: [id number] DATE: 12/27/2016 REASON FOR FOLLOW UP: Neutropenic fevers. INTERVAL HISTORY: Over the weekend, the patient's fevers have moderated and he started to feel better. Today, he tells me he has no fevers, chills or headache. The tenderness that was present around the left portion of his nose is much improved over the last 48 hours. He has had no sores in the mouth. No trouble swallowing. No cough, shortness of breath, chest pain, nausea, vomiting, diarrhea, or dysuria. PHYSICAL EXAMINATION: Reveals an afebrile gentleman, temperature 36.7. His last fever was this morning, 38.5, so he has only been afebrile about 7 hours at this point. Pulse 63, respiratory rate 14, blood pressure 104/61. He is in no acute distress whatsoever. Normal mental status. Eyes without conjunctivitis. Oral cavity without thrush or hairy leukoplakia. No adenopathy in the neck. Lungs are clear. Cardiac tones: Regular rate and rhythm, though we did have a period of AFib earlier but that is resolved. Abdomen soft, nontender, without right lower quadrant tenderness or hepatosplenomegaly. No skin rash noted. PICC line in good position, left upper extremity. LABORATORIES: Include a white count that was down to basically 100 total with neutrophil count of zero or thereabouts on December 25,. Today, he has 400 total white count and neutrophil count 190. Platelets are low at 14,000. Hematocrit 25. Creatinine is 0.43. Albumin 2.8. ALT 172 and that is up considerably from admission when it was 26. Urinalysis without white cells. Vancomycin level 17. Fungitell and galactomannan pending. Micro studies include negative blood cultures. Negative nasopharyngeal multiplex PCR for respiratory pathogens. A nasal MRSA screen positive. Chest x-ray on admission basically normal. IMPRESSION: This patient has improved considerably over the weekend on a combination of vancomycin and meropenem. I suspect that his infection actually was a MRSA vestibulitis as he did have evidence of vestibulitis on admission and MRSA was cultured from his nares on this occasion. He seems to be improving on this antibiotic regimen fairly quickly, which is gratifying. One concern is his liver function tests are rapidly going up again. Late in his 47-day hospitalization earlier this year, his liver function tests started to rise and I was concerned it might be due to an antifungal agent, but he is currently not receiving an antifungal agent and I am quite unclear about what the cause of this recurrent elevation of liver function tests may represent. RECOMMENDATIONS: 1. Will continue with vancomycin and meropenem. 2. I have asked the lab to take the MRSA that was isolated from a nasal swab on Tuesday and regrow it and do full susceptibilities in preparation for discharge on oral therapy. 3. I am hopeful that as the patient's neutrophil count continues to rise, and he will stay afebrile and may be able to go home as early as December 29 or , but time will tell.
[2016-12-27] MEDS: LORazepam 1 mg Tablet PO SCH (21:27)
[2016-12-28] VITALS (9 sets, daily range): BP systolic 137–178; BP diastolic 61–88; PULSE 60–84; RESP 16–17; O2SAT 94–100
[2016-12-28] MEDS: Vancomycin Inj 1,000 MG in IV Premix 1 EACH IV SCH ×3 (03:04→21:39)
--- NOTE | 2016-12-28 05:09 | NUR ---
PICC line / fluid balance blue lumen of PICC line occluded, red line flushes VERY hard, able to get return flash of blood but unable to fill syringe for lab draw. Lab notified to come and draw, message left with IV therapy to assess and declot. Pt is taking in significantly more fluids via IV and PO than has been urinating. Some facial edema, no significant increase elsewhere, left lung clear, right lung with some crackles. Will continue to monitor, hourly rounding ongoing.
[2016-12-28 05:32] LABS: Mean Corpuscular Hemoglobin 30.2 pg (27.0-35.0); Mean Corpuscular Volume 83.6 fL (81-100)
[2016-12-28 05:48] LABS: Platelet Count 39 bil/L (150-400)
[2016-12-28] MEDS: Pantoprazole 40 mg ER24 Tablet PO SCH (06:38)
[2016-12-28] MEDS: Meropenem Inj 2,000 MG in 0.9% Sodium Chloride 100 ML IV SCH ×2 (06:38→17:44)
--- NOTE | 2016-12-28 08:26 | PROG NOTE ---
[address] [address] PROGRESS NOTE PATIENT: JEFF AMEZCUA : 1945 MR#: [id number] ADMIT: 12/24/2016 JOB ID: [id number] DATE: 12/28/2016 SUBJECTIVE: The patient is a 71-year-old gentleman with acute myelogenous leukemia, in remission. Please refer to prior notes for full history. He was hospitalized with febrile neutropenia over the weekend. He is on broad-spectrum antibiotic coverage with meropenem and vancomycin. Upper respiratory culture was positive for MRSA by PCR. Additional culture and sensitivity is pending. He had shaking chills, followed by a fever earlier this morning. He slept poorly. He feels more short of breath, and complains of cough. OBJECTIVE: Vitals: T 38.2, P 83, R 16, BP 168/84. HEENT: Conjunctivae slightly pale. Mucous membranes moist. No oral lesions. Chest: A few basilar crackles. No wheezes. Cardiac exam: Regular rate and rhythm with normal S1, S2. No murmurs appreciated. Abdomen: Soft, nontender. Normoactive bowel tones. Slightly distended. Extremities: Trace pedal edema. 2+ distal pulses. No calf tenderness. LABORATORIES: WBC 0.8, hemoglobin 10.3, hematocrit 28.5%, platelets 39,000. ASSESSMENT AND PLAN: 1. Acute myelogenous leukemia, in complete remission following induction and re-induction chemotherapy: After recent consolidation chemotherapy with five days of leonor-C and two days of idarubicin, the patient developed pancytopenia. He was transfused yesterday with 2 units packed red blood cells and 2 units platelets. No indication for further transfusion support today. His total white cell count has improved to 0.8. Request a differential to assess his absolute neutrophil count at this time. Avoid G-CSF. Continue broad-spectrum antibiotics with meropenem and vancomycin. Await further sensitivity testing on his methicillin-resistant Staphylococcus aureus (MRSA). If he has further shaking chills and/or fevers, recommend repeat blood cultures. He has a worsening cough and some dyspnea with exertion. This could be due to infectious causes, or possibly fluid overload. He is up about 13 pounds (over 6 kg) since his admission. Obtain a chest film PA and lateral today for further assessment. Diurese with Lasix 40 mg IV daily. 2. Atrial fibrillation with rapid ventricular response: The patient's heart rhythm appears to be regular at this time. Continue diltiazem 120 mg by mouth daily, and monitor.
[2016-12-28] MEDS: Vancomycin Dose per Pharmacist XX SCH (08:30)
[2016-12-28] MEDS: 0.9% Sodium Chloride 250 ML IV SCH (09:00)
[2016-12-28] MEDS: Furosemide 10 mg/mL 4 mL Inj IVPUSH SCH (09:28)
[2016-12-28] MEDS: Diltiazem CD 120 mg ER24 Capsule PO SCH (09:29)
[2016-12-28] MEDS: Omega-3 Fatty Acids 1,000 mg Capsule PO SCH (09:34)
--- NOTE | 2016-12-28 10:10 | DRSVH ---
PROCEDURE: X-RAY CHEST, TWO VIEWS ([id number]) INDICATIONS: Cough, fluid overload TECHNIQUE: 2 views of the chest were acquired. COMPARISON: [facility], CR, XR CHEST 1VW (PORTABLE), 12/24/2016, 11:29. FINDINGS: Surgical changes and devices: Stable positioning of left PICC tip projected over the mid superior alvin a cava. Lungs and pleura: Bibasilar airspace opacities and small effusions are noted. Lungs otherwise are cl ear. No pneumothorax. No definite fluid overload. Mediastinum: Mediastinal contours are normal. Heart size is normal. Bones and chest wall: No suspicious bony abnormalities. Soft tissues appear unremarkable. IMPRESSION: 1. Bibasilar atelectasis versus aspiration or pneumonia. Correlate clinically. 2. Small pleural effusions. Dictated by: Jeffrey SINCLAIR Interpreted: Fernanda Gaines MD on 12/28/2016 at 10:08 Transcribed by: MAVIS on 12/28/2016 at 10:09 Approved by: Fernanda Gaines M.D. on 12/28/2016 at 17:04
[2016-12-28 11:34] LABS: BASOPHILS % (AUTO) 0 % (0-3); EOSINOPHILS % (AUTO) 1 % (0-5); MONOCYTES % (AUTO) 13 % (4-12)
[2016-12-28 11:36] LABS: NEUTROPHILS % (AUTO) 62 % (40-74)
--- NOTE | 2016-12-28 11:42 | PROG NOTE ---
[address] [address] PROGRESS NOTE PATIENT: JEFF AMEZCUA : 1945 MR#: [id number] ADMIT: 12/24/2016 JOB ID: [id number] DATE: 12/28/2016 INFECTIOUS DISEASE FOLLOW UP NOTE: REASON FOR FOLLOWUP: Febrile neutropenia. INTERVAL HISTORY: Overnight, the patient has been much worse. He reports impressive chills, sweats and fever throughout the night. He has developed an increasing though largely nonproductive cough and at times has been short of breath though he is not right now. He denies oral lesions, nausea, vomiting, diarrhea or dysuria. He has had no problems with his PICC line. PHYSICAL EXAMINATION: Reveals a gentleman who was febrile to 38.2 earlier this morning. He is now 36.9, pulse around 50, respiratory rate 16, blood pressure 145/73. He is saturating well on room air. Examination of the head reveals no trauma. The eyes without conjunctivitis. Oral cavity: No thrush or pharyngitis. Lungs clearly with rales at the right base which are focal and unilateral. Cardiac tones without change. Left upper extremity PICC is benign. The abdomen is soft and nontender. Does not have a Gill catheter. No skin rash visible. LABORATORIES: Include a white count of 800. A differential is pending but if it is like yesterday's, he may have between 300 and 500 neutrophils. Platelets 39,000. Creatinine is 0.43. Albumin 2.8. His ALT is 172 which is a major increase over his baseline. Fungitell and galactomannan are pending. Micro studies include a MRSA swab positive from the nose. Otherwise all cultures are negative. IMPRESSION: This is a neutropenic host who was admitted with fever and neutropenia. Blood cultures have been negative and initially we had no indication of a pulmonary infection. At this point, the patient is starting to develop a cough and has rales at the right base and I am concerned that he is developing a pneumonia even as his neutrophil count starts to resolve after five days here in the hospital on vanc and Zosyn. He clearly did have a MRSA vestibulitis when he first came in the hospital and his nose is now normal suggesting that that problem has completely resolved. Another concern is his LFTs which are slowly increasing. During his last admission, the patient had an unexplained elevation of his LFTs and I now wonder once again if he could have some degree of drug-induced hepatitis or conceivably acalculous cholecystitis. RECOMMENDATIONS: 1. Will continue with vancomycin and Zosyn. 2. Will repeat a Fungitell and galactomannan. 3. Will repeat the procalcitonin. 4. Ultrasound abdomen right upper quadrant will be done. 5. Will continue with vanc and meropenem for the time being but the addition of antifungal drugs is a possibility going forward. 6. Mupirocin to the nares will be started.
--- NOTE | 2016-12-28 13:06 | DRSVH ---
PROCEDURE: CT CHEST WITHOUT CONTRAST ([id number]) INDICATIONS: new pneumonia-feb neutropenic TECHNIQUE: Noncontrast 5 mm thick sections acquired from the pulmonary apices to the posterior costophrenic angl es. 7 mm thick coronal and sagittal MIP reformats were then acquired. For radiation dose reduction, the following was used: automated exposure control, adjustment of mA and/or kV according to patient size. COMPARISON: [facility], CT, CT CHEST ABD PELVIS W CON, 10/08/2016, 17:40. FINDINGS: Image quality: Excellent. Lungs and pleura: There are small bilateral low density pleural effusions. There is associated compre ssive atelectasis at the bilateral lung bases. Subcentimeter patchy pulmonary opacities are present w ithin the lower lobes, lingula, and right middle lobe. Mediastinum: Heart size is normal. There is a trace pericardial effusion. No mediastinal adenopathy by size criteria. Thoracic aorta and central pulmonary arteries are normal in size. Scattered ather omatous calcifications are present within the aortic arch. A left-sided central venous catheter is p resent with the tip at the confluence of the brachiocephalic veins. Esophagus is normal in caliber. No hiatal hernia. Bones and chest wall: No suspicious bony lesions. No vertebral body compression fractures. No axil levi or supraclavicular adenopathy by size criteria. Thyroid gland is unremarkable. Abdomen: There is a small amount of perihepatic free fluid. Visualized upper abdominal solid organs and bowel loops appear otherwise normal in the absence of contrast. IMPRESSION: 1. Small bilateral low density pleural effusions and partially characterized perihepatic fluid. These findings may be associated with fluid overload. Please correlate clinically. 2. Patchy pulmonary opacities suspicious for postinflammatory residua given history of recent pneumon ia and neutropenia. Short interval (1-2 months) surveillance recommended to ensure resolution of this finding and exclude underlying pulmonary pathology. Dictated by: Val Banks M.D. on 12/28/2016 at 12:52 Approved by: Val Banks M.D. on 12/28/2016 at 13:05
--- NOTE | 2016-12-28 13:39 | DRSVH ---
PROCEDURE: CT SINUSES ([id number]) INDICATIONS: rhinitis, right ear pain TECHNIQUE: Noncontrast 3.0 mm axial images acquired from the frontal sinuses to the mid-sella, with coronal and sagittal reformats. COMPARISON: None. FINDINGS: Image quality: Excellent. Sinuses: There is mild right and minimal left maxillary sinus mucosal thickening. Mild russell sinus the coastal thickening is present within the ethmoid and frontal sinuses with minimal sphenoid sinus muc osal thickening. Ostiomeatal Complexes: Ostiomeatal complexes are patent. No Leon cells. Miscellaneous: Visualized intra-orbital contents are normal. No sherrie bullosa or paradoxical turbi jean marie curvature. Prominent leftward nasal septal deviation., With septal spur IMPRESSION: 1. Russell sinus disease, most prominent within the right maxillary sinus. 2. Ostiomeatal complexes are patent. 3. Internal and external structures of the right internal and external ear are unremarkable. Dictated by: Fernanda Gaines M.D. on 12/28/2016 at 13:35 Approved by: Fernanda Gaines M.D. on 12/28/2016 at 13:38
[2016-12-28] MEDS ORDERED: Alteplase (Cathflo) 1 mg/mL 2 mL Inj IVPUSH ONE ×2 (13:40)
--- NOTE | 2016-12-28 14:42 | NUR ---
JOANNA signed by KATELYN and CaroleToya Zepeda, QUALITY SPECIALIST
--- NOTE | 2016-12-28 17:34 | PCM.PNMED ---
Subjective Date of Service December 28, 2016 Subjective Continues to spike fever once daily with chills. WBC and platelet improving. Lasix given for suspected fluid overload. Exam Vital Signs Vital Sign - Last Date Time Temp Pulse Resp B/P Pulse Ox O2 Delivery O2 Flow Rate FiO2 12/28/16 16:05 38.0 71 16 155/76 96 Room Air Intake and Output 12/27/16 12/27/16 12/28/16 Cumulative From/Thru 15:00 23:00 07:00 12/24/16 10:16 - 12/28/16 05:17 Intake Total 965 ml 3646 ml 2637 ml 37290 ml Output Total 900 ml 750 ml 9375 ml Balance 965 ml 2746 ml 1887 ml 49215 ml Intake Oral 1380 ml 1600 ml 63092 ml IV Total 250 ml 1666 ml 1037 ml 6620 ml Packed Cells 300 ml 600 ml 1500 ml Platelets 415 ml 415 ml Output Urine Total 900 ml 750 ml 9375 ml # Voids 1 7 # Bowel Movements 1 0 2 Exam General: No acute distress HEENT: Normocephalic, atraumatic Heart: : Regular rate and rhythm without S3-S4 murmurs Lungs crackles at lung bases Abdomen: Soft nontender normal bowel sounds, nontender tympanic to percussion Extremities: Negative for edema Neuro: No focal deficits Psych: Negative for agitation and anxiety IVs and Medications Medications Reviewed: Medications were reviewed in detail Lab and Diagnostics Result Diagram: 12/28/16 0515 12/27/16 0445 X-Rays, CTs and MRIs PROCEDURE: X-RAY CHEST ONE VIEW, PORTABLE ([id number]) INDICATIONS: neutropenic fever TECHNIQUE: One view of the chest was acquired. COMPARISON: 12/12/2016 FINDINGS: Surgical changes and devices: Left-sided PICC line with tip overlying the SVC. Lungs and pleura: No pleural effusions or pneumothorax. Lungs are clear. Mediastinum: Mediastinal contours appear normal. Heart size is normal. Bones and chest wall: No suspicious bony lesions. Overlying soft tissues appear unremarkable. IMPRESSION: No acute cardiopulmonary abnormality. Left-sided PICC line in place. Dictated by: Yonis Cannon M.D. on 12/24/2016 at 11:39 Approved by: Yonis Cannon M.D. on 12/24/2016 at 11:41 Assessment & Plan Acute, active #neutropenic fever, POA, source of infection: possibly nasal cellulitis, infection related to blood products, possible viral URI. HD stable. UA neg. -will finish routine infectious w/u, resp PCR, BCX: Chest x-ray is negative, respiratory panel negative, Blood cultures negative 12/24 .repeat bcx 12/27 negative --appreciate ID input --continue meropenem 2g q8h for now, vancomycin is added by ID on 12/24. -- We will hold off heparin or enoxaparin, his counts are too low he does not need it. -- Positive nasal MRSA, negative blood cultures so far, chest x-ray negative, UA negative # Brief New onset Afib on 12/27,resolved -Patient had episode of atrial fibrillation with RVR today on 12/27. Resolved after Cardizem -Patient on Cardizem by mouth for hypertension. No history of atrial fibrillation -TSH WNL #chronic anemia, thrombocytopenia, POA, with AML in remission, s/p consolidation chemo of 5days of idarubicin IV, cytarabine (SIMÓN-C) 12/14. s/p 2units pRBC, 2PLT 12/23 -appreciate for blood products, further management, -PICC in place, -- per Dr. Balbuena's prev notes, "transfusions with irradiated leuko-poor blood products for hematocrit less than 25% and platelets less than 15,000.": -- Gave 2 units of PRBC 12/24.transfusion of 2PRBC and [address] Balbuena today 12/27 # AML # Hyponatremia: Likely due to hypovolemia Improved chronic, stable # hypertension, continue patient's home medication Cardizem # insomnia chronic, At bedtime melatonin, Ativan PO when necessary home med dispo: Continues to spike fever. ID considering adding antifungal. Remains inpatient diet:general diet dvt ppx:HSQ Full code VTE Prophylaxis: Other (not indicated, platelets too low) VTE Mechanical Devices: Intermittant Pneumatic CD Resuscitation Status: CPR: Attempt Resuscitation Maksim Miller MD December 28, 2016 17:34
--- NOTE | 2016-12-28 19:22 | NUR ---
Lasix/fever Pt looking a little puffy this am, had a large fluid difference between intake and output, notified , orders received for Lasix and stop IV fluid. Pt spiked a fever of 38.0, blood cultures taken x2, Tylenol administered, pt feeling much better.
[2016-12-28] MEDS: LORazepam 1 mg Tablet PO SCH (21:37)
[2016-12-28] MEDS: Mupirocin 2% 22 Gm Ointment NASAL SCH (21:39)
[2016-12-29] VITALS (7 sets, daily range): BP systolic 129–156; BP diastolic 72–83; PULSE 55–67; RESP 16–17; O2SAT 94–98
[2016-12-29] MEDS: Meropenem Inj 2,000 MG in 0.9% Sodium Chloride 100 ML IV SCH ×4 (00:35→22:46)
--- NOTE | 2016-12-29 04:14 | NUR ---
Sleep Pt able to get much better sleep tonight than last night per his report. PICC line continues to occlude periodically, appears to be positional. IV therapy aware and will assess in am. All antibiotics able to infuse. Hourly rounding ongoing.
[2016-12-29] MEDS: Vancomycin Inj 1,000 MG in IV Premix 1 EACH IV SCH ×3 (04:31→19:30)
[2016-12-29 04:59] LABS: Mean Corpuscular Volume 85.1 fL (81-100)
[2016-12-29 05:00] LABS: Platelet Count 32 bil/L (150-400)
[2016-12-29 05:14] LABS: BASOPHILS % (AUTO) 0 % (0-3); EOSINOPHILS % (AUTO) 0 % (0-5); MONOCYTES % (AUTO) 9.9 % (4-12); NEUTROPHILS % (AUTO) 70.3 % (40-74)
[2016-12-29 05:18] LABS: Magnesium 1.6 mg/dL (1.6-2.6)
[2016-12-29] MEDS: Pantoprazole 40 mg ER24 Tablet PO SCH (06:41)
[2016-12-29] MEDS ORDERED: Potassium Chloride 20 mEq SR Tablet PO ONE (08:20)
[2016-12-29] MEDS: Vancomycin Dose per Pharmacist XX SCH (08:30)
[2016-12-29] MEDS: 0.9% Sodium Chloride 250 ML IV SCH (09:00)
[2016-12-29] MEDS: Diltiazem CD 120 mg ER24 Capsule PO SCH (11:51)
[2016-12-29] MEDS: Mupirocin 2% 22 Gm Ointment NASAL SCH ×2 (11:52→21:15)
[2016-12-29] MEDS: Furosemide 10 mg/mL 4 mL Inj IVPUSH SCH (11:52)
--- NOTE | 2016-12-29 11:54 | PROG NOTE ---
[address] [address] PROGRESS NOTE PATIENT: JEFF AMEZCUA : 1945 MR#: [id number] ADMIT: 12/24/2016 JOB ID: [id number] DATE: 12/29/2016 INFECTIOUS DISEASE FOLLOW UP NOTE: REASON FOR FOLLOWUP: Febrile neutropenia with possible pneumonia. INTERVAL HISTORY: Recall that yesterday we were concerned about increasing fevers and chills in this complicated 71-year-old gentleman who just finished consolidation therapy for leukemia and developed neutropenic fevers. Today, the patient feels dramatically better. He no longer has any fevers, chills, headaches. He denies any sore throat. Minimal dry cough. No shortness of breath. No nausea, vomiting, diarrhea or abdominal pain. PHYSICAL EXAMINATION: The patient is afebrile, temperature 37.2, pulse 57, respiratory rate 17, blood pressure 144/72, saturating well on room air. In no acute distress. Mental status normal. Oral cavity negative with no thrush. Lungs: A few crackles at the right base as before. Cardiac tones without new murmur. Abdomen benign. LABORATORIES: Include a white count of 1200, neutrophil count is 850. Creatinine 0.46. ALT is 102. AST and ALT are normal. Procalcitonin 0.21. Vanco trough 17. Fungitell, galactomannan pending. Blood cultures from the 8th are negative. Repeats from the 9th are pending but negative so far. The blood cultures from the 5th when he was admitted are negative. Nasal swab was positive for MRSA which was susceptible to vanco. Nasopharyngeal panel negative. Sinus CT showed mild pansinusitis especially in the right maxillary. Chest CT also done yesterday showed small bilateral pleural effusions and patchy pulmonary opacities which may represent pneumonia. Abdominal ultrasound is pending and will be interpreted this morning. IMPRESSION: The patient has improved dramatically with return of his white count. Given that he had impressive fevers just a day or so ago, I would be inclined to keep the patient in the hospital a day or two more while we sort this out as he does have evidence of sinusitis though not severe as well as a patchy pulmonary infiltrate, perhaps worse on the right. We await the ultrasound of the abdomen. RECOMMENDATIONS: 1. Will continue with vanc and meropenem for the time being. 2. Will closely follow his white count, temperature curve and other labs with possible discharge in the next day or two on oral antibiotics.
--- NOTE | 2016-12-29 17:49 | PCM.PNMED ---
Subjective Date of Service December 29, 2016 Subjective No fever overnight. Feeling better overall. Pancytopenia improving. CT scan consistent with sinusitis. Exam Vital Signs Vital Sign - Last Date Time Temp Pulse Resp B/P Pulse Ox O2 Delivery O2 Flow Rate FiO2 12/29/16 16:16 36.8 56 16 140/74 98 Room Air Intake and Output 12/28/16 12/28/16 12/29/16 Cumulative From/Thru 15:00 23:00 07:00 12/24/16 10:16 - 12/29/16 05:51 Intake Total 1436 ml 2582 ml 17593 ml Output Total 3425 ml 1950 ml 25234 ml Balance -1989 ml 632 ml 62283 ml Intake Oral 1436 ml 2000 ml 66755 ml IV Total 582 ml 7202 ml Packed Cells 1500 ml Platelets 415 ml Output Urine Total 3425 ml 1950 ml 36291 ml # Voids 7 # Bowel Movements 0 2 Exam General: No acute distress HEENT: Normocephalic, atraumatic Heart: : Regular rate and rhythm without S3-S4 murmurs Lungs crackles at lung bases Abdomen: Soft nontender normal bowel sounds, nontender tympanic to percussion Extremities: Negative for edema Neuro: No focal deficits Psych: Negative for agitation and anxiety IVs and Medications Medications Reviewed: Medications were reviewed in detail Lab and Diagnostics Result Diagram: 12/29/1642912/29/16 043 X-Rays, CTs and MRIs PROCEDURE: X-RAY CHEST ONE VIEW, PORTABLE ([id number]) INDICATIONS: neutropenic fever TECHNIQUE: One view of the chest was acquired. COMPARISON: 12/12/2016 FINDINGS: Surgical changes and devices: Left-sided PICC line with tip overlying the SVC. Lungs and pleura: No pleural effusions or pneumothorax. Lungs are clear. Mediastinum: Mediastinal contours appear normal. Heart size is normal. Bones and chest wall: No suspicious bony lesions. Overlying soft tissues appear unremarkable. IMPRESSION: No acute cardiopulmonary abnormality. Left-sided PICC line in place. Dictated by: Yonis Cannon M.D. on 12/24/2016 at 11:39 Approved by: Yonis Cannon M.D. on 12/24/2016 at 11:41 Assessment & Plan Acute, active #neutropenic fever due to sinusitis, POA, - resp PCR, BCX: Chest x-ray is negative, respiratory panel negative, Blood cultures negative 12/24 .repeat bcx 12/27 negative --appreciate ID input --continue meropenem 2g q8h for now, vancomycin is added by ID on 12/24. -- We will hold off heparin or enoxaparin, his counts are too low he does not need it. -- Positive nasal MRSA, negative blood cultures so far, chest x-ray negative, UA negative -CT of sinus consistent with sinusitis # Brief New onset Afib on 12/27,resolved -Patient had episode of atrial fibrillation with RVR today on 12/27. Resolved after Cardizem -Patient on Cardizem by mouth for hypertension. No history of atrial fibrillation -TSH WNL #chronic anemia, thrombocytopenia, POA, with AML in remission, s/p consolidation chemo of 5days of idarubicin IV, cytarabine (SIMÓN-C) 12/14. s/p 2units pRBC, 2PLT 12/23 -appreciate for blood products, further management, -PICC in place, -- per Dr. Balbuena's prev notes, "transfusions with irradiated leuko-poor blood products for hematocrit less than 25% and platelets less than 15,000.": -- Gave 2 units of PRBC 12/24.transfusion of 2PRBC and [address] Balbuena today 12/27 # AML # Hyponatremia: Likely due to hypovolemia Improved chronic, stable # hypertension, continue patient's home medication Cardizem # insomnia chronic, At bedtime melatonin, Ativan PO when necessary home med dispo: Continues to spike fever. ID considering adding antifungal. Remains inpatient diet:general diet dvt ppx:HSQ Full code VTE Prophylaxis: Other (not indicated, platelets too low) VTE Mechanical Devices: Intermittant Pneumatic CD Resuscitation Status: CPR: Attempt Resuscitation Maksim Miller MD December 29, 2016 17:49
[2016-12-29] MEDS: Omega-3 Fatty Acids 1,000 mg Capsule PO SCH (18:41)
--- NOTE | 2016-12-29 20:01 | NUR ---
Pain Patient with right hip pain treated with tylenol alternating with ibuprofen . Patient feeling ,much better today no fevers. patient with decreased appetite encouraged to take fluids . Lab values improving.
[2016-12-29] MEDS: LORazepam 1 mg Tablet PO SCH (21:15)
[2016-12-30] VITALS (8 sets, daily range): BP systolic 135–174; BP diastolic 44–79; PULSE 59–92; RESP 16–18; O2SAT 93–99
--- NOTE | 2016-12-30 02:05 | NUR ---
Fever Pt states he is chilled and very uncomfortable, found shivering in bed. Temp of 101.3 / 38.5 this shift, after receiving APAP. MD paged FYI and blood cultures drawn per PRN order. No complaints of hip pain, family in room at start of shift. IV abx infusing- only one port of picc is functional. Care continues
[2016-12-30] MEDS: Vancomycin Inj 1,000 MG in IV Premix 1 EACH IV SCH ×3 (03:52→21:54)
[2016-12-30] MEDS: Meropenem Inj 2,000 MG in 0.9% Sodium Chloride 100 ML IV SCH ×2 (06:37→17:19)
[2016-12-30] MEDS: Pantoprazole 40 mg ER24 Tablet PO SCH (06:39)
[2016-12-30] MEDS ORDERED: Vancomycin Serum Trough XX ONE ×2 (07:30→11:30)
[2016-12-30] MEDS: Furosemide 10 mg/mL 4 mL Inj IVPUSH SCH (08:23)
[2016-12-30] MEDS: Diltiazem CD 120 mg ER24 Capsule PO SCH (08:29)
[2016-12-30] MEDS: Vancomycin Dose per Pharmacist XX SCH (08:30)
[2016-12-30] MEDS: Mupirocin 2% 22 Gm Ointment NASAL SCH ×2 (08:32→21:58)
[2016-12-30 09:00] LABS: BASOPHILS % (AUTO) 0.9 % (0-3); EOSINOPHILS % (AUTO) 0 % (0-5); MONOCYTES % (AUTO) 15.6 % (4-12); Mean Corpuscular Hemoglobin 30.2 pg (27.0-35.0); NEUTROPHILS % (AUTO) 59.7 % (40-74)
[2016-12-30] MEDS: 0.9% Sodium Chloride 250 ML IV SCH (09:00)
[2016-12-30 09:16] LABS: Platelet Count 28 bil/L (150-400)
--- NOTE | 2016-12-30 11:43 | PCM.PHAPRO ---
Progress neutropenic fever Vanco trough returned slightly elevated however trough drawn early. Will continue with current dosing and follow up with new trough. on 01/01@3449. Collin Banks Pharm.D December 30, 2016 11:43
[2016-12-30] MEDS: Omega-3 Fatty Acids 1,000 mg Capsule PO SCH (13:05)
--- NOTE | 2016-12-30 13:51 | PROG NOTE ---
[address] [address] PROGRESS NOTE PATIENT: JEFF AMEZCUA : 1945 MR#: [id number] ADMIT: 12/24/2016 JOB ID: [id number] DATE: 12/30/2016 INFECTIOUS DISEASE FOLLOW UP NOTE: REASON FOR FOLLOWUP: Fever in a febrile neutropenic. INTERVAL HISTORY: The patient has continued to have intermittent significant fevers which are sometimes associated with chills. The most recent of these occurred during the night. Overall, though, he continues to feel better. He specifically denies at this point headache, sinus complaint, sore throat, significant cough, shortness of breath, nausea, vomiting, diarrhea or abdominal pain. He does have some degree of dry cough which has been present through his admission but is not severe. When he does do some coughing, he develops pain in his lower abdominal musculature and this has been a constant for while but when he is not coughing his abdomen is not tender. He has no dysuria, no diarrhea, no soreness or inflammation in his joints and no problem with his left upper extremity PICC line. PHYSICAL EXAMINATION: The patient was febrile to 38.5 at 2 a.m. This continues a series of fevers which started back before he was readmitted back on December 25. His pulse is 67, respiratory rate 16, blood pressure 135/74. He is saturating 99% on room air and appears completely comfortable. Mental status is normal. Sinuses are nontender. Oral cavity: No thrush, pharyngitis or hairy leukoplakia. The neck is supple. There is no adenopathy. His lungs are notable for very few crackles at the right base. Cardiac tones without new murmur. A PICC line in the left upper extremity is benign. The abdomen is soft and nontender. There is no skin rash. LABORATORIES: Include a white count which is 1100 today. 60% of these are neutrophils for a total neutrophil count of about 650, slightly lower than yesterday's 850, but comparable. His hematocrit stable at 28. Platelets stable at 28,000 as well. His creatinine is 0.41. His ALT is slowly declining and peaked at 172 a couple days ago which was completely unexplained and it is now down to 81. Procalcitonin is down to 0.14. Recall that we had two prior values of 0.2 so it is really not much of a change. Urinalysis without pyuria. Vanco trough today is 22, and I am sure pharmacy will be adjusting downward on that. The patient's galactomannan and Fungitell have come back and they are both negative from December 25. Repeat sent on December 28 are still pending. Cultures from this admission include the MRSA which grew from the nose which was vancomycin susceptible and clinda resistant. Recall that when he first came in it appeared he had Staph vestibulitis. Blood cultures are negative. Respiratory viral culture is negative. No new imaging since the sinus, chest and abdominal series. His sinus CT showed minimal pansinusitis especially in the right maxillary area and his chest CT showed some patchy opacities which may represent a residual infection. IMPRESSION: This patient continues to look well though he is also continuing to have these spiking fevers. The source of these fevers is unclear though I suspect sinuses or lung source is most likely. A right upper quadrant ultrasound has not been formally interpreted yet but the preliminary reading is not worrisome. I see no evidence for hepatosplenic candidiasis or other fungal process at this point. RECOMMENDATIONS: 1. Will continue the vanco which is aimed at the MRSA that clearly cause vestibulitis when he first came in the hospital. 2. Will continue with the broad-spectrum meropenem until we have more clarity. 3. Will continue to closely follow his white count. 4. If we have no answer tomorrow, will consider abdomen and pelvis CT scanning but I prefer to hold off on that. 5. This case discussed in person with Dr. Balbuena of Hem/Onc.
--- NOTE | 2016-12-30 14:15 | NUR ---
Social Work-Continued D/C Planning Data: EMR reviewed. Pt is on day 6 of hospitalization for neutropenic fever per h&P. Pt is not medically stable, anticipate multiple more days. Pt continues to have a fever. Pt resides at home with his , pt has been up independent in his room. Pt's to provide transport home at discharge. No anticipated discharge needs. SW will continue to follow if needs arise. Assessment: Pt who is independent at baseline. Plan: Pt to discharge home when medically stable via POV. No anticipated discharge needs. SW will continue to follow if needs arise. JAZMIN Lombardi
[2016-12-30] MEDS ORDERED: Potassium Chloride 20 mEq SR Tablet PO ONE (15:00)
--- NOTE | 2016-12-30 15:16 | PCM.PNMED ---
Subjective Date of Service December 30, 2016 Subjective Continues to spike fever. Blood culture sent last night. Clinically not worsening. Pancytopenia improving. No pain on sinuses or congestion Exam Vital Signs Vital Sign - Last Date Time Temp Pulse Resp B/P Pulse Ox O2 Delivery O2 Flow Rate FiO2 12/30/16 09:25 36.5 67 16 135/74 99 Room Air Intake and Output 12/29/16 12/29/16 12/30/16 Cumulative From/Thru 15:00 23:00 07:00 12/24/16 10:16 - 12/30/16 06:40 Intake Total 2000 ml 3685 ml 14148 ml Output Total 3250 ml 2150 ml 72139 ml Balance -1250 ml 1535 ml 58237 ml Intake Oral 2000 ml 2300 ml 42489 ml IV Total 1385 ml 8587 ml Packed Cells 1500 ml Platelets 415 ml Output Urine Total 3250 ml 2150 ml 57644 ml # Voids 7 # Bowel Movements 0 2 Exam General: No acute distress HEENT: Normocephalic, atraumatic Heart: : Regular rate and rhythm without S3-S4 murmurs Lungs crackles at lung bases Abdomen: Soft nontender normal bowel sounds, nontender tympanic to percussion Extremities: Negative for edema Neuro: No focal deficits Psych: Negative for agitation and anxiety IVs and Medications Medications Reviewed: Medications were reviewed in detail Lab and Diagnostics Result Diagram: 12/30/1684412/30/1645 X-Rays, CTs and MRIs PROCEDURE: X-RAY CHEST ONE VIEW, PORTABLE ([id number]) INDICATIONS: neutropenic fever TECHNIQUE: One view of the chest was acquired. COMPARISON: 12/12/2016 FINDINGS: Surgical changes and devices: Left-sided PICC line with tip overlying the SVC. Lungs and pleura: No pleural effusions or pneumothorax. Lungs are clear. Mediastinum: Mediastinal contours appear normal. Heart size is normal. Bones and chest wall: No suspicious bony lesions. Overlying soft tissues appear unremarkable. IMPRESSION: No acute cardiopulmonary abnormality. Left-sided PICC line in place. Dictated by: Yonis Cannon M.D. on 12/24/2016 at 11:39 Approved by: Yonis Cannon M.D. on 12/24/2016 at 11:41 Assessment & Plan Acute, active #neutropenic fever due to suspected sinusitis, POA, - resp PCR, multiple BCX: Chest x-ray is negative, respiratory panel negative, Blood cultures negative 12/24 .repeat bcx 12/27 negative --appreciate ID input --continue meropenem 2g q8h and vancomycin -- Positive nasal MRSA, negative blood cultures so far, chest x-ray negative, UA negative -CT of sinus consistent with sinusitis -Dr. Hackett considering doing CT abdomen pelvis tomorrow if continues to spike # Brief New onset Afib on 12/27,resolved -Patient had episode of atrial fibrillation with RVR on 12/27. Resolved after Cardizem -Patient on Cardizem by mouth for hypertension. No history of atrial fibrillation -TSH WNL #chronic anemia, thrombocytopenia, POA, with AML in remission, s/p consolidation chemo of 5days of idarubicin IV, cytarabine (SIMÓN-C) 12/14. s/p 2units pRBC, 2PLT 12/23 -appreciate for blood products, further management, -PICC in place, -- per Dr. Balbuena's prev notes, "transfusions with irradiated leuko-poor blood products for hematocrit less than 25% and platelets less than 15,000.": -- Gave 2 units of PRBC 12/24.transfusion of 2PRBC and 2 platelets on 12/27 # AML -Dr Balbuena following chronic, stable # hypertension, continue patient's home medication Cardizem # insomnia chronic, At bedtime melatonin, Ativan PO when necessary home med Prophylaxis:We will hold off heparin or enoxaparin, his counts are too low he does not need it. dispo: Continues to spike fever. Remains inpatient diet:general diet dvt ppx:HSQ Full code VTE Prophylaxis: Other (not indicated, platelets too low) VTE Mechanical Devices: Intermittant Pneumatic CD Resuscitation Status: CPR: Attempt Resuscitation Maksim Miller MD December 30, 2016 15:16
--- NOTE | 2016-12-30 16:07 | PROG NOTE ---
[address] [address] PROGRESS NOTE PATIENT: JEFF AMEZCUA : 1945 MR#: [id number] ADMIT: 12/24/2016 JOB ID: [id number] DATE: 12/30/2016 SUBJECTIVE: The patient is a 71-year-old gentleman with acute myelogenous leukemia in remission. He is hospitalized with febrile neutropenia after recent consolidation chemotherapy with SIMÓN-C plus idarubicin. He remains febrile overnight. He is a little discouraged. OBJECTIVE: Vitals: T 36.5, P 67, R 16, BP 135/74. HEENT: Conjunctivae slightly pale. Mucous membranes moist. No oral lesions. Nodes: No adenopathy in the neck, axilla or groin. Chest: Clear. Cardiac examination: Regular rate and rhythm with normal S1, S2. Abdomen: Soft, nontender with normoactive bowel tones. No splenomegaly or masses. Extremities: Trace pedal edema. 2+ distal pulses. No calf tenderness. LABORATORIES: WBC 1.1 with 60% neutrophils, hemoglobin 9.9, hematocrit 28.2%, platelets 28,000. Sodium 136, potassium 3.6, BUN 13, creatinine 0.41. Glucose 112. AST 26, ALT 81, alkaline phosphatase 150. ASSESSMENT AND PLAN: 1. 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 He has pancytopenia associated with recent chemotherapy. No indication for transfusion support today. White cell count dropped ever so slightly since yesterday, likely as a result of consumption of platelets due to possible underlying infection. Sinus film has shown sinusitis. Abdominal film was stable. For now, continue broad-spectrum antibiotics with meropenem and vancomycin. Recheck daily CBC, differential, and platelets. Atrial fibrillation: Clinically stable. Continue management per hospitalist team.
--- NOTE | 2016-12-30 19:21 | NUR ---
Activity Pt up and walking in hallways, able to go to piano and watch granddaughter play. Temperatures remained stable during shift. Vanco trough drawn early and was elevated, but dosage verified with Collin in pharmacy prior to giving. Pt in good spirits during shift and appropriate behavior.
--- NOTE | 2016-12-30 19:41 | DRSVH ---
PROCEDURE: X-RAY CHEST ONE VIEW ([id number]) INDICATIONS: 71-year-old male with catheter placement. TECHNIQUE: One view of the chest was acquired. COMPARISON: [facility], CR, XR CHEST 2VW, 12/28/2016, 9:43. [facility], CR, XR CHEST 1VW (PORTABLE), 12/24/2016, 11:29. [facility], CR, XR CHEST 1VW (PORTABLE), 12/12, 10:37. FINDINGS: Surgical changes and devices: Left PICC is again noted, with tip in the upper superior vena cava. Rig ht neck surgical clips are again noted. Lungs and pleura: Trace bibasilar subpulmonic pleural effusions are present. Linear left lung base at electasis. Mediastinum: Mediastinal contours appear normal. Heart size is normal. There is aortic atheroscler osis. Bones and chest wall: No suspicious bony lesions. Overlying soft tissues appear unremarkable. IMPRESSION: 1. Left PICC is again noted, with tip in expected position. 2. Persistent trace subpulmonic pleural effusions are of uncertain etiology. Dictated by: Shawn Marcial M.D. on 12/30/2016 at 19:38 Approved by: Shawn Marcial M.D. on 12/30/2016 at 19:39
[2016-12-30] MEDS: LORazepam 1 mg Tablet PO SCH (21:55)
[2016-12-31] MEDS: Meropenem Inj 2,000 MG in 0.9% Sodium Chloride 100 ML IV SCH ×4 (00:40→23:58)
--- NOTE | 2016-12-31 04:18 | NUR ---
Night Fever Fever spiked to 39.3 degrees at approximately midnight, taken orally. Tylenol given. Pt complained of chills, felt extremely warm, blankets were removed and a cool wash cloth applied to forehead. Fever resolving, antibiotics infusing, fluids encouraged. Hourly rounding ongoing.
[2016-12-31 05:05] VITALS: BP 147/75; PULSE 62; RESP 17; O2SAT 94
[2016-12-31] MEDS: Vancomycin Inj 1,000 MG in IV Premix 1 EACH IV SCH ×3 (05:07→22:07)
[2016-12-31 05:29] LABS: BASOPHILS % (AUTO) 0 % (0-3); EOSINOPHILS % (AUTO) 0.9 % (0-5); MONOCYTES % (AUTO) 12.7 % (4-12); Mean Corpuscular Hemoglobin 30.1 pg (27.0-35.0); Mean Corpuscular Volume 86.8 fL (81-100); Platelet Count 49 bil/L (150-400)
[2016-12-31 05:51] LABS: Magnesium 1.6 mg/dL (1.6-2.6)
[2016-12-31] MEDS: Pantoprazole 40 mg ER24 Tablet PO SCH (06:46)
[2016-12-31] MEDS ORDERED: Potassium Chloride 20 mEq SR Tablet PO ONE (07:05)
[2016-12-31] MEDS ORDERED: Magnesium Sulf 2 Gm/50mL Water 2 GM in IV Premix 1 EACH IV ONE (07:05)
--- NOTE | 2016-12-31 07:51 | PROG NOTE ---
[address] [address] PROGRESS NOTE PATIENT: JEFF AMEZCUA : 1945 MR#: [id number] ADMIT: 12/24/2016 JOB ID: [id number] DATE: 12/31/2016 SUBJECTIVE: The patient is a 71-year-old gentleman with acute myelogenous leukemia in remission. He remains hospitalized with febrile neutropenia after recent consolidation chemotherapy with leonor-C plus idarubicin. He again had a high fever overnight with a T-max of 39.3 degrees centigrade. He did not experience shaking chills with this episode. He is feeling good this morning, although he has been a bit discouraged by his slow progress. OBJECTIVE: Vitals: T 37.1, P 62, R 17, BP 147/75, O2 saturation 94% on room air. HEENT: Conjunctivae slightly pale. Mucous membranes moist. No oral lesions. Nodes: No adenopathy in the neck or axilla. Chest: Clear. Cardiac exam: Regular rate and rhythm. Abdomen: Soft, nontender. Normoactive bowel tones. Extremities: No edema. 2+ distal pulses. No calf tenderness. LABORATORIES: WBC 1.1 with 61% neutrophils, 24% lymphocytes, 13% monocytes. Hemoglobin 9.8, hematocrit 28.3%, platelets 49,000. ASSESSMENT AND PLAN: Acute myelogenous leukemia, in complete remission following induction and re-induction chemotherapy: The patient has pancytopenia associated with his consolidation chemotherapy. No indication for transfusion of red cells or platelets today. White cell count is stable, with no evidence of recurrent leukemia. Given the patient's persistent fevers, recommend repeat CT imaging of the abdomen and pelvis to search for any potential source of infection. If this is negative, then I would consider removing his PICC line as a potential source of infection and administering further antibiotics via peripheral IV or a new central catheter. I appreciate further input from Dr. Hackett. I discussed the patient with Dr. Miller this morning. PETRONA
[2016-12-31 08:00] VITALS: PULSE 70
[2016-12-31] MEDS: Omega-3 Fatty Acids 1,000 mg Capsule PO SCH (08:30)
[2016-12-31] MEDS: Mupirocin 2% 22 Gm Ointment NASAL SCH ×2 (08:30→20:58)
[2016-12-31] MEDS: Vancomycin Dose per Pharmacist XX SCH (08:30)
[2016-12-31] MEDS: Diltiazem CD 120 mg ER24 Capsule PO SCH (08:36)
[2016-12-31] MEDS: 0.9% Sodium Chloride 250 ML IV SCH (09:00)
--- NOTE | 2016-12-31 12:48 | PCM.PNMED ---
Subjective Date of Service December 31, 2016 Subjective Patient continues to spike fever. Denies any nasal congestion or facial pain. Denies cough. Denies abdominal pain. Pancytopenia improving. Overall feeling better but continues to have episodes of fever. Exam Vital Signs Vital Sign - Last Date Time Temp Pulse Resp B/P Pulse Ox O2 Delivery O2 Flow Rate FiO2 12/31/16 08:25 38.1 12/31/16 08:00 70 12/31/16 05:05 17 147/75 94 Room Air Intake and Output 12/30/16 12/30/16 12/31/16 Cumulative From/Thru 15:00 23:00 07:00 12/24/16 10:16 - 12/31/16 06:49 Intake Total 2922 ml 3045 ml 91970 ml Output Total 2500 ml 2100 ml 36149 ml Balance 422 ml 945 ml 80407 ml Intake Oral 2460 ml 2400 ml 92019 ml IV Total 462 ml 645 ml 9694 ml Packed Cells 1500 ml Platelets 415 ml Output Urine Total 2500 ml 2100 ml 95626 ml # Voids 7 # Bowel Movements 0 2 Exam General: No acute distress HEENT: Normocephalic, atraumatic Heart: : Regular rate and rhythm without S3-S4 murmurs Lungs clear to auscultation Abdomen: Soft nontender normal bowel sounds, nontender tympanic to percussion Extremities: Negative for edema Neuro: No focal deficits Psych: Negative for agitation and anxiety IVs and Medications Medications Reviewed: Medications were reviewed in detail Lab and Diagnostics Result Diagram: 12/31/1615 12/31/1615 X-Rays, CTs and MRIs PROCEDURE: X-RAY CHEST ONE VIEW, PORTABLE ([id number]) INDICATIONS: neutropenic fever TECHNIQUE: One view of the chest was acquired. COMPARISON: 12/12/2016 FINDINGS: Surgical changes and devices: Left-sided PICC line with tip overlying the SVC. Lungs and pleura: No pleural effusions or pneumothorax. Lungs are clear. Mediastinum: Mediastinal contours appear normal. Heart size is normal. Bones and chest wall: No suspicious bony lesions. Overlying soft tissues appear unremarkable. IMPRESSION: No acute cardiopulmonary abnormality. Left-sided PICC line in place. Dictated by: Yonis Cannon M.D. on 12/24/2016 at 11:39 Approved by: Yonis Cannon M.D. on 12/24/2016 at 11:41 Assessment & Plan Acute, active #Persistent neutropenic fever -Initially thought due to suspected sinusitis based on imaging and nasal cellulitis on presentation. Patient has no symptoms at this point localizing infection source. CT chest unrevealing. CT sinus consistent with sinusitis but no symptoms or sinus tenderness. -Discussed with ID Dr Hackett and oncology ,will CT abdomen and pelvis. will consider removing the PICC line if CT is unrevealing - resp PCR, multiple BCX: Chest x-ray is negative, respiratory panel negative, Blood cultures negative 12/24 .repeat bcx 12/27 negative --appreciate ID input --continue meropenem 2g q8h and vancomycin -- Positive nasal MRSA, negative blood cultures so far, chest x-ray negative, UA negative # Brief New onset Afib on 12/27,resolved -Patient had episode of atrial fibrillation with RVR on 12/27. Resolved after Cardizem -Patient on Cardizem by mouth for hypertension. No history of atrial fibrillation -TSH WNL #chronic anemia, thrombocytopenia, POA, with AML in remission, s/p consolidation chemo of 5days of idarubicin IV, cytarabine (SIMÓN-C) 12/14. s/p 2units pRBC, 2PLT 12/23 -appreciate for blood products, further management, -PICC in place, -- per Dr. Balbuena's prev notes, "transfusions with irradiated leuko-poor blood products for hematocrit less than 25% and platelets less than 15,000.": -- Gave 2 units of PRBC 12/24.transfusion of 2PRBC and 2 platelets on 12/27 # AML -Dr Balbuena following # Fluid overload -Patient had 6 kg weight gain since admission. Diuresed with IV Lasix. Responded well. Discontinue Lasix chronic, stable # hypertension, continue patient's home medication Cardizem # insomnia chronic, At bedtime melatonin, Ativan PO when necessary home med Prophylaxis:We will hold off heparin or enoxaparin, his counts are too low he does not need it. dispo: Continues to spike fever. Remains inpatient diet:general diet dvt ppx:HSQ Full code VTE Prophylaxis: Other (not indicated, platelets too low) VTE Mechanical Devices: Intermittant Pneumatic CD Resuscitation Status: CPR: Attempt Resuscitation Maksim Miller MD December 31, 2016 12:48
--- NOTE | 2016-12-31 13:07 | PROG NOTE ---
[address] [address] PROGRESS NOTE PATIENT: JEFF AMEZCUA : 1945 MR#: [id number] ADMIT: 12/24/2016 JOB ID: [id number] CORRECTED REPORT: DATE: 12/31/2016 INFECTIOUS DISEASE FOLLOW UP NOTE: REASON FOR FOLLOWUP: Persistent fever in a leukemic patient who is recovering his white counts after consolidation chemo. INTERVAL HISTORY: Recall that this is the 71-year-old gentleman who was admitted here now eight days ago when he developed fevers along with neutropenia after consolidation chemo. He has been treated with vanc and meropenem and is clinically improved but his fevers continue and they are spiking above 39 degrees. Despite his high spiking fevers, he has very little in the way of symptoms. He has no significant headache. No significant cough, shortness of breath or chest pain. He does have a minimal amount of nasal discharge but no sinus pain. No nausea, no vomiting, no diarrhea. No dysuria. No significant problems with his left upper extremity PICC line. No skin rash and no localized pain anywhere. PHYSICAL EXAMINATION: Reveals a comfortable enough gentleman sitting in a chair. He is febrile right now 38.1, pulse 70, blood pressure 147/75, saturating well on room air. Respiratory rate about 17. No acute distress. He was as high as 39.3 at midnight which is his highest temperature in really more than a week since admission. The patient's mental status is clear. Sinuses are nontender. Eyes without conjunctivitis. Oral cavity: No thrush, pharyngitis or apparent dental infection. Lungs: Quite clear. Cardiac tones: Regular rate and rhythm. The patient's left upper extremity PICC line looks benign. His abdomen without notable tenderness or abnormality. His extremities without rash or skin breakdown. LABORATORIES: Include white count which is exactly the same as the last couple days, 1100, 60% segs. Platelets are steadily climbing, elevated at 49,000 and his hematocrit is stable at 28. Creatinine 0.41. LFTs are normal with the exception of ALT which was as high as 172 and is now down to 74. His albumin is 2.7. Procalcitonin 0.14 when last checked. Fungitell has been negative twice on December 25 and . Galactomannan was negative on December 25 and the one from the is still pending. Blood cultures x16 bottles since admission all negative. Nasal swab grew MRSA and this occurred in the setting that was clearly a nasal vestibulitis which we thought was the cause of his fevers. IMAGING: Done recently includes a chest x-ray, which shows trace subpulmonic bilateral pleural effusions. Sinus CT showed some mild pansinusitis. The ultrasound of the right upper quadrant showed gallbladder sludge with some minor wall thickening but no evidence of cholecystitis and our chest CT of three days ago showed small pleural effusions as well as some perihepatic fluid compatible with fluid overload. Some patchy infiltrates were seen in the lower lungs. IMPRESSION: This is a perplexing case of a gentleman who had Pseudomonas sepsis during his initial induction for Pseudomonas and additional induction for leukemia but ultimately did well. He came back for consolidation chemo, became neutropenic, and developed new fevers leading to this admission. When he first came back, it was clear that he had vestibulitis and cultures of his nose grew MRSA. His vestibulitis rapidly resolved with a combination of vanco and meropenem and his white count eventually recovered and has been reasonable for the last 3-4 days. Despite the recovery of the white count to at least levels in the 5-750 range, the patient has continued to have high spiking fever and some chills with no clear focality. Sinus CT shows minor disease as does the chest CT and I think the next area to explore is his abdomen. It is possible he has gallbladder disease or an intra-abdominal abscess. Also of concern here would be a fungal infections such as hepatosplenic candidiasis or perhaps more ominously mucor type infection but the patient does not look that toxic. He could also have an infection of his PICC line but it looks benign and it has only been in one month so that would be a bit unlikely. RECOMMENDATIONS: 1. Continue the antibiotics for at least through today. 2. Abdominal pelvic CT with contrast is in order and will be done shortly. 3. Will consider stopping his vanco or switching to daptomycin for additional treatment of his vestibulitis as it could be causing a drug fever but this is quite a severe drug fever and he does not have a rash. 4. Overall the patient's appearance is reassuring as he appears nontoxic even as he has unexplained high fevers. ADDITIONAL INFORMATION: This is our gentleman with persistent fevers even as he recovers his cell counts following consolidation for chemo. This CT scan of the abdomen and pelvis was completed today. It shows multiple lung base nodules which were also seen on the CT scan done a couple days ago. This is of concern to me as this could represent a fungal infection. Recall that during his last hospitalization, which lasted 49 days, we had the patient on antifungal prophylaxis throughout. During this admission, we have not, because he developed some increased LFTs during his last admission, we were concerned might have been due to the azole antifungal. His failure to defervesce during this admission is of concern. We initially thought he had a classic MRSA infection of his nose with severe vestibulitis and that improved dramatically with the vancomycin and meropenem therapy, but now he is having spiking fevers and a bit of a dry cough. His has pulmonary nodules are concerning and could represent a fungal process. RECOMMENDATIONS: 1. I am going to repeat crypto antigen, Fungitell, and galactomannan, even though we already have multiple sets that are negative. 2. I would invite our Pulmonary colleagues to become involved with this case. 3. If his fevers continue, I think we will be forced to give a trial of antifungal therapy. Remember that during the last hospital stay, we were concerned about cholestatic hepatitis which may have been due to posaconazole. If his fevers continue much longer I think we will be forced to add another agent and I would consider Cresemba. Mucor would be of great concern here because the patients' Fungitell and galactomannan are normal and of course these would not be impacted by Mucor. 4. Perhaps bronchoscopy would be helpful if he continues to have fevers, and that is the reason for the Pulmonary consult. Thank you very much. Addenda added by VIVIAN 01/03/17 at 8:26am MTDD
--- NOTE | 2016-12-31 13:17 | DRSVH ---
PROCEDURE: CT ABDOMEN AND PELVIS WITH CONTRAST ([id number]) INDICATIONS: hi fevers in a neutropenic patient TECHNIQUE: After the administration of oral and intravenous contrast, 5 mm thick sections acquired from the diap hragms to the symphysis. 5 mm thick coronal and sagittal reformats were performed. For radiation do se reduction, the following was used: automated exposure control, adjustment of mA and/or kV accordi ng to patient size. COMPARISON: Chest CT from December 28, 2016. Chest abdomen and pelvis CT from October 08, 2016 and [facility] 2008. FINDINGS: Image quality: Excellent. ABDOMEN: Lung bases: Mild/moderate pleural effusions right greater than left improved since the previous study . Multiple bibasilar irregular pulmonary nodules measuring up to 9 mm. Solid organs: Minimal fatty infiltration of an otherwise radiographically normal liver. No hepatic ma sses. Stable low density 1.7 cm nodule in the pancreatic head. There are further small hypodensities in the pancreatic tail. The spleen, adrenal glands and kidneys are normal.. Peritoneum and bowel: Stomach, small bowel, and colon loops are normal in caliber and wall thickness . No free fluid or air. Nodes and vessels: No retroperitoneal or mesenteric adenopathy. Aorta and inferior vena cava are no rmal in caliber. Miscellaneous: Minimal pelvic free fluid stable since the previous study.. PELVIS: Genitourinary: Bladder wall thickness is normal. Miscellaneous: No inguinal hernias or adenopathy. Bones: No suspicious bony lesions. No vertebral body compression fractures. Lumbar spine postopera tive change. Bilateral hip total arthroplasties. With a by a IMPRESSION: 1. Multiple partially visualized bilateral lung base nodules may represent infection given the patien t's neutropenic state. Underlying malignancy cannot be excluded. Recommend a followup chest CT in 3 [facility] to verify resolution. 2. Small bilateral pleural effusions improved since the previous study. 3. Stable low-density pancreatic nodules. Dictated by: Sam Chris M.D. on 12/31/2016 at 12:51 Approved by: Sam Chris M.D. on 12/31/2016 at 13:16
--- NOTE | 2016-12-31 14:08 | DRSVH ---
CORRECTED ACCESSION/PLACER NUMBER ON 12/31/16 PROCEDURE: US ABDOMEN ([id number]) INDICATIONS: Elevated liver function tests and fever TECHNIQUE: Real-time scanning was performed of the abdominal and retroperitoneal organs, with image documentatio n. COMPARISON: [facility], CT, CT CHEST WO CON, 12/28/2016, 12:29. [facility], US, US ABDOMEN, 11/22/2016, 8:31. FINDINGS: Liver: Liver is prominent in size measuring 18.7 cm and demonstrates coarse, diffusely increased ech otexture. Gallbladder: No gallstones. There is mild gallbladder wall thickening and small amount of pericholec ystic fluid. The sonographic Gates's sign is negative. Biliary ducts: Intrahepatic bile ducts are non-dilated. Extrahepatic bile duct caliber measures 1.7 mm. Normal is 6-7 mm or less in diameter, or 10 mm or less post-cholecystectomy. Pancreas: Visualized portions of the pancreas is hypoechoic. Spleen: Spleen is not imaged. Kidneys: Kidneys are not imaged. Aorta: Visualized aorta is not imaged. Iliacs: Proximal common iliac arteries not visualized. IVC: Intrahepatic inferior vena cava is patent. Miscellaneous: There is a small right effusion. IMPRESSION: 1. Mild hepatomegaly and coarse hepatic echotexture. Recommend clinical correlation. 2. No gallstones. There is gallbladder wall thickening and small amount of pericholecystic fluid. No sonographic Gates sign. 3. Diffuse hypoechoic pancreas. 4. Small right effusion. Dictated by: Isaak Soto M.D. on 12/29/2016 at 12:33 Approved by: Isaak Soto M.D. on 12/29/2016 at 12:41
[2016-12-31 16:56] VITALS: BP 139/73; PULSE 68; RESP 16; O2SAT 97
[2016-12-31 20:11] VITALS: BP 165/78; PULSE 82; RESP 18; O2SAT 96
[2016-12-31] MEDS: LORazepam 1 mg Tablet PO SCH (20:53)
[2017-01-01 00:34] VITALS: PULSE 76
--- NOTE | 2017-01-01 01:14 | CONS ---
[address] [address] CONSULTATION REPORT PATIENT: JEFF AMEZCUA : 1945 MR#: [id number] ADMIT: 12/24/2016 JOB ID: [id number] PULMONARY AND CRITICAL CARE CONSULTATION: DATE OF SERVICE: 12/31/2016 REASON FOR CONSULTATION: Fever and abnormal chest x-ray. HISTORY OF PRESENT ILLNESS: Patient is a 71-year-old, never smoker, who was in excellent health until September of this year when he was diagnosed with acute myelogenous leukemia. I do not have records related to that immediately available, but apparently he underwent induction chemotherapy and did well despite an episode of post induction neutropenia and pseudomonas sepsis. He was ultimately discharged to home. He was readmitted several days ago after developing sudden rapidly progressive painful reddish swelling of his nose in association with fevers, rigors, lethargy, and confusion. He was felt to have a staphylococcal vestibulitis and was treated with vancomycin and Zosyn. The erythema and induration of his nose rapidly improved as did his sense of well-being. His fevers have persisted, however, and Pulmonary consultation is now requested to help investigate their cause. He is a never smoker. He has been quite physically active all his life up until the time of his AML diagnosis in September of this year. 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, [place]. He has visited multiple areas throughout the [facility] at various times and has had brief trips to [place] during his lifetime, but no extensive foreign travel. There are no pets in the home. He has had bilateral hip replacements previously, but has not noted any increasing anterior groin pain or other pain which might suggest involvement of his prostheses and infectious process. He has chronic low back pain which is his usual sciatica and has been present for several years. He denies cough, nasal drainage, headache, difficulty swallowing, change in voice, chest discomfort or pain, joint tenderness, rash, lymphadenopathy, nausea, vomiting, or aspiration. PAST MEDICAL HISTORY: 1. AML diagnosed in September of this year, status post induction, now on consolidative therapy with idarubicin. 2. History of Pseudomonas bacteremia following induction chemotherapy. 3. Presumed MRSA vestibulitis this admission with good response to vancomycin and Zosyn. 4. Hypertension. 5. Diverticulitis. 6. Prostatism. SOCIAL HISTORY: He is retired. He is . FAMILY HISTORY: Noncontributory but for unspecified malignancy in his grandmother. REVIEW OF SYSTEMS: As above. Denies rash, arthralgias, muscle or joint pain, headache, vomiting, diarrhea, epistaxis, cough, or dyspnea. CURRENT MEDICATIONS: Include meropenem 2 g q.8 h., vancomycin 1000 mg q.8 h., vitamin D3, clobetasol, B12, diltiazem CD 120 mg p.o. daily, furosemide 20 mg p.o. daily, ibuprofen 400 mg q.6 h., Ativan 1 mg p.o. at h.s., mupirocin 2% ointment to nares b.i.d., Protonix 40 mg p.o. daily, multivitamin. DRUG ALLERGIES: Include AMLODIPINE, ATENOLOL, CETIRIZINE, DOXYCYCLINE, HYDROCHLOROTHIAZIDE, HYDROCODONE, LISINOPRIL, OXYCODONE, and PIROXICAM. PHYSICAL EXAM: This is a tall thin gentleman who appears weak, but comfortable. He speaks in full sentences. His blood pressure is 140/70, heart rate is 68 and regular, respirations 16, O2 saturation is 97% on room air. His T-max within the last 24 hours is 39.3, current temperature 37.1. HEENT: He has whitish exudate throughout his oropharynx without ulceration. Trachea is midline. There is no lymphadenopathy, mass, or crepitus in the neck. There are no bruits. Conjunctivae are pale, but non injected. Sclerae anicteric. Pupils equal and round. Gaze appears conjugate and full. Chest is clear to percussion. On auscultation, he has good air movement in all doan without wheeze, rale, rhonchi, or egophony. Cardiac exam: Regular rhythm with a faint systolic flow murmur right upper sternal border. No gallop or rub. Abdomen is soft and nontender with normal bowel tones. No organomegaly, mass, or bruit. Extremities: No cyanosis, clubbing, synovitis. Trace bilateral lower extremity edema is present. Skin: No rash, ulceration, purpura. DATABASE: Is per the electronic medical record. CBC shows a hemoglobin of 9.8, hematocrit 28%, total WBC of 1.1 with 61% neutrophils, 23% lymphs, 12.7% monocytes, and 0.9% eosinophils. Chemistries show sodium 134, potassium 3.5, chloride 94, total CO2 29, BUN 13, creatinine 0.4, random glucose of 118, total calcium 8.6, magnesium 1.6, alkaline phosphatase 157, ALT 74, down from 102 on admission, and AST only 26. A dedicated chest CT scan dated December 28, 2016 showed small bilateral pleural effusions and very subtle patchy densities in the lower peripheral lung zones. An abdominal CT scan from today which included his lung bases show the interval development of atelectasis with perhaps slight improvement in the size of his bilateral effusions. IMPRESSION: Fever in a patient recovering from neutropenia associated with chemotherapy for recently diagnosed acute myelogenous leukemia. The differential here of course is quite broad. My sense in general is that this is not a pulmonary infection responsible for his ongoing fevers. Both he and his feel that the fever curve is steadily decreasing and his sense of well being is returning. He clearly had a Staphylococcus vestibulitis which led to his admission, but there is no evidence of any metastatic focus of infection although we need to be vigilant for development of such as his hip prostheses. The infectious disease entry level sales consultant would be best to summarize potential agents to consider here, but they could include nocardia actinomyces, various dimorphic fungi, or even mycobacterial disease. He is at risk for a variety of rickettsial and spirochetal illnesses also given his several months in [facility] each year. I do not see any role for bronchoscopy at this point. He is slowly recovering from his neutropenia and he is clinically improving. His chest x-ray and CT abnormalities are quite subtle and he has no hypoxemia or respiratory symptoms for that matter. I would like to continue to observe him in the hospital on continued antibiotics. We will get a repeat chest x-ray in 48 hours or sooner if he should develop any cause for concern about progressive lung involvement. If he develops hypoxemia, respiratory symptoms, or progressive pulmonary infiltrates, we can reconsider his suitability for bronchoscopy and likely a bronchoalveolar lavage. Thank you for requesting Pulmonary and Critical Care consultation. We will continue to follow with you while he remains hospitalized and review his repeat chest x-ray in two days' time. PETRONA
[2017-01-01] MEDS: Vancomycin Inj 1,000 MG in IV Premix 1 EACH IV SCH (04:40)
[2017-01-01 05:00] VITALS: BP 182/76; PULSE 95; RESP 16; O2SAT 97
[2017-01-01 05:59] LABS: BASOPHILS % (AUTO) 0.8 % (0-3); EOSINOPHILS % (AUTO) 0 % (0-5); MONOCYTES % (AUTO) 10.8 % (4-12); Mean Corpuscular Hemoglobin 30.4 pg (27.0-35.0); Mean Corpuscular Volume 87.5 fL (81-100); NEUTROPHILS % (AUTO) 69.2 % (40-74)
--- NOTE | 2017-01-01 06:43 | NUR ---
Fever Patient reports feeling chills, low grade fever, given both Tylenol and Motrin. Double lumen pick red top flushable but unable to draw blood this am. Pain managed effectively. IV therapy notified.
[2017-01-01 07:04] LABS: Platelet Count 24 bil/L (150-400)
--- NOTE | 2017-01-01 07:07 | NUR ---
Critical Lab Critical lab value for platelets of 24. Edgar paged Red team at to notify Awaiting response.
[2017-01-01] MEDS: Vancomycin Dose per Pharmacist XX SCH (07:44)
[2017-01-01] MEDS: Pantoprazole 40 mg ER24 Tablet PO SCH (07:46)
[2017-01-01] MEDS: Omega-3 Fatty Acids 1,000 mg Capsule PO SCH (07:46)
[2017-01-01] MEDS: Meropenem Inj 2,000 MG in 0.9% Sodium Chloride 100 ML IV SCH (07:46)
[2017-01-01] MEDS: Mupirocin 2% 22 Gm Ointment NASAL SCH ×2 (07:47→20:45)
[2017-01-01] MEDS: Diltiazem CD 120 mg ER24 Capsule PO SCH (07:47)
[2017-01-01 07:50] VITALS: BP 149/76; PULSE 69
[2017-01-01] MEDS: 0.9% Sodium Chloride 250 ML IV SCH (08:07)
--- NOTE | 2017-01-01 08:13 | PROG NOTE ---
[address] [address] PROGRESS NOTE PATIENT: JEFF AMEZCUA : 1945 MR#: [id number] ADMIT: 12/24/2016 JOB ID: [id number] DATE: 01/01/2017 SUBJECTIVE: The patient is a 71-year-old gentleman with acute myelogenous leukemia, in remission. He remains hospitalized with febrile neutropenia after recent consolidation chemotherapy with leonor-C plus idarubicin. He had shaking chills last night, with a fever up to 38.4 degrees centigrade. Recent blood cultures have been negative during this hospitalization. He has had prior infection with Pseudomonas aeruginosa and urine culture positive for Enterococcus faecalis during earlier hospitalizations. CT imaging of the abdomen and pelvis yesterday did not show any acute process below the diaphragm, although he had a stable, 1.7 cm nodule in the pancreatic head, but did show multiple bibasilar pulmonary nodules measuring up to 0.9 cm. Serology for cryptococcus fungal antibodies and galactomannan have been negative on December 25 and December 28, 2016, with testing from December 31, 2016, pending. He denies any atypical bleeding or bruising. OBJECTIVE: Vitals: T-max 38.4, P 95, R 16, BP 182/76. O2 saturation 97% on room air. Weight (December 31, 2016) 79.5 kg. HEENT: Conjunctivae slightly pale. Mucous membranes moist. No oral lesions. Chest: Clear. No wheezes or crackles. Cardiac exam: Regular rate and rhythm with normal S1, S2. No murmurs or rubs appreciated. Abdomen: Soft, nontender. Normoactive bowel tones. No splenomegaly or masses. Extremities: No edema, 2+ distal pulses. No calf tenderness. LABORATORIES: WBC 1.3, hemoglobin 10.0, hematocrit 28.8%, platelets 24,000. Sodium 136, potassium 3.6, BUN 12, creatinine 0.44, glucose 148. ASSESSMENT AND PLAN: Acute myelogenous leukemia, status post induction, re-induction, and consolidation chemotherapy with leonor-C and idarubicin. The patient continues to have pancytopenia, but no definite indication for red cell or platelet transfusion at this time. White count is 1.3 with 69% neutrophils, and no evidence of blasts. He is still immunosuppressed, and at risk for infection. Nonetheless, despite his fevers, he has not appeared septic. Blood pressure, if anything, has been somewhat elevated. The pulmonary nodules identified on yesterday's CT imaging do not warrant bronchoscopy or further evaluation at this time per pulmonary consultation, beyond repeat chest film in a couple of days. We will pull his peripherally inserted central catheter line, and administer his antibiotics and other medications via peripheral IV. Dr. Hackett will determine timing for antibiotic discontinuation. His current constellation of symptoms are not typical of drug fever, but this remains a consideration.
[2017-01-01 10:59] VITALS: PULSE 78
[2017-01-01] MEDS ORDERED: Vancomycin Serum Trough XX ONE (11:00)
--- NOTE | 2017-01-01 11:09 | PROG NOTE ---
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 INTERVAL HISTORY: The patient continues to experience episodic fevers which are so far unexplained. He denies any ENT symptoms except some mild right ear fullness which has come and gone throughout this hospital stay. No sore throat. He has a dry cough but that is not significant. No shortness of breath. No chest pain. No nausea, vomiting, diarrhea or dysuria. He says his PICC line often requires flushing and tPA as it has been misfunctioning but otherwise it is nontender. PHYSICAL EXAMINATION: Reveals a currently afebrile gentleman. Temperature 36.7, but he was febrile to 38.4 last night. Pulse 69, respiratory rate 16, blood pressure 149/76. He is saturating well on room air and very comfortable. His eyes without conjunctivitis. Oral cavity without pharyngitis. His external ears are benign appearing. His neck is supple. Lungs quite clear posteriorly. Cardiac tones without murmur. The left upper extremity PICC line appears benign. The abdomen is soft and nontender. No skin rash is present. LABORATORIES: Include a white count of 1300, total neutrophil count 900. Platelets are dipping back to 24,000. His creatinine is 0.44. His current liver function is relatively stable with an ALT 74, albumin 2.7. Last procalcitonin 0.14. Urine without white cells. Vanco trough two days ago was 22. Crypto antigen, as well as Fungitell and galactomannan repeats are pending but note that Fungitell and galactomannan were negative on the and the . Blood cultures are negative from the , , and . These include fungal blood cultures. The only positive from this whole hospital stay which has now gone on for 8-1/2 days is the nasal culture that grew MRSA. Recall that when he first came in he clearly did have MRSA vestibulitis. IMAGING: Includes our abdominal CT we did yesterday. It shows some small nodules in the lung bases. I reviewed this x-ray with pulmonary and they were not impressed that these were significant. There are some small bilateral pleural effusions also noted and some low-density pancreatic nodules which the patient has known about. The patient was seen by Pulmonary yesterday. They felt that the pulmonary process was not the source of his fever. IMPRESSION: The patient seems to be slowly improving and his fevers are starting to moderate. There are numerous possibilities for the causation of this fever. I doubt that this is a pulmonary process and the Pulmonary consult also agrees with this viewpoint. He certainly could have an invasive fungal infection such as mucor, but I would expect him to be much sicker and his Fungitell and galactomannan are negative, which would lower the possibility of non mucor infections as one would expect the Fungitell to be elevated with these infections. Mycobacterial or Nocardia process could look like this as well but I find these unlikely in this patient. Also possibly here would be drug fever, but drug fever tends to be low level and constant rather than high and spiking as in this case. A third possibility would be infection of the PICC line but the PICC line appears completely benign and blood cultures drawn through the PICC line have been very consistently negative. DVT or some other completely obscure cause is also possible but this patient walks almost constantly so I find that unlikely. RECOMMENDATIONS: 1. Without enthusiasm, I would second the idea of pulling the PICC line and culturing its tip. 2. Will use peripheral IVs from here on out. 3. Will change his antibiotics from the current vanc and meropenem to ceftaroline and oral Cipro. 4. I had considered starting Cresemba as an antifungal agent but I think I will hold off a day or two given the patient's nontoxic appearance. Once we start him on an expensive and broad-spectrum antifungal like Cresemba, if he defervesces from some other reason, will be stuck with a long course of this somewhat toxic and very pricey oral antifungal which could come with some significant toxicity and I am not certain we are ready to commit to that as this does not seem typical of a fungal process.
[2017-01-01] MEDS: Ceftaroline Inj 600 MG in Dextrose 5% 250 ML IV SCH ×2 (11:22→20:45)
[2017-01-01 12:58] VITALS: BP 163/75; PULSE 82; RESP 14; O2SAT 92
--- NOTE | 2017-01-01 13:15 | PCM.PNMED ---
Subjective Date of Service January 01, 2017 Subjective Continues to spike fever. Patient remains nontoxic. Exam Vital Signs Vital Sign - Last Date Time Temp Pulse Resp B/P Pulse Ox O2 Delivery O2 Flow Rate FiO2 01/01/17 12:58 37.7 82 14 163/75 92 Room Air Intake and Output 12/31/16 12/31/16 01/01/17 Cumulative From/Thru 14:59 22:59 06:59 12/24/16 10:16 - 01/01/17 05:53 Intake Total 1020 ml 2487 ml 12522 ml Output Total 2800 ml 3200 ml 74475 ml Balance -1780 ml -713 ml 9522 ml Intake Oral 1020 ml 2487 ml 94565 ml IV Total 9694 ml Packed Cells 1500 ml Platelets 415 ml Output Urine Total 2800 ml 3200 ml 81881 ml # Voids 7 # Bowel Movements 0 0 2 Exam General: No acute distress HEENT: Normocephalic, atraumatic Heart: : Regular rate and rhythm without S3-S4 murmurs Lungs clear to auscultation Abdomen: Soft nontender normal bowel sounds, nontender tympanic to percussion Extremities: Negative for edema Neuro: No focal deficits Psych: Negative for agitation and anxiety IVs and Medications Medications Reviewed: Medications were reviewed in detail Lab and Diagnostics Result Diagram: 01/01/1752401/01/17524 X-Rays, CTs and MRIs PROCEDURE: X-RAY CHEST ONE VIEW, PORTABLE ([id number]) INDICATIONS: neutropenic fever IMPRESSION: No acute cardiopulmonary abnormality. Left-sided PICC line in place. Dictated by: Yonis Cannon M.D. on 12/24/2016 at 11:39 Approved by: Yonis Cannon M.D. on 12/24/2016 at 11:41 PROCEDURE: CT CHEST WITHOUT CONTRAST ([id number]) INDICATIONS: new pneumonia-feb neutropenic IMPRESSION: 1. Small bilateral low density pleural effusions and partially characterized perihepatic fluid. These findings may be associated with fluid overload. Please correlate clinically. 2. Patchy pulmonary opacities suspicious for postinflammatory residua given history of recent pneumonia and neutropenia. Short interval (1-2 months) surveillance recommended to ensure resolution of this finding and exclude underlying pulmonary pathology. Dictated by: Val Banks M.D. on 12/28/2016 at 12:52 PROCEDURE: CT ABDOMEN AND PELVIS WITH CONTRAST ([id number]) INDICATIONS: hi fevers in a neutropenic patient IMPRESSION: 1. Multiple partially visualized bilateral lung base nodules may represent infection given the patient's neutropenic state. Underlying malignancy cannot be excluded. Recommend a followup chest CT in 3 months to verify resolution. 2. Small bilateral pleural effusions improved since the previous study. 3. Stable low-density pancreatic nodules. Dictated by: Sam Chris M.D. on 12/31/2016 at 12:51 PROCEDURE: CT SINUSES ([id number]) INDICATIONS: rhinitis, right ear pain TECHNIQUE: Noncontrast 3.0 mm axial images acquired from the frontal sinuses to the mid- sella, with coronal and sagittal reformats. COMPARISON: None. FINDINGS: Image quality: Excellent. Sinuses: There is mild right and minimal left maxillary sinus mucosal thickening. Mild russell sinus the coastal thickening is present within the ethmoid and frontal sinuses with minimal sphenoid sinus mucosal thickening. Ostiomeatal Complexes: Ostiomeatal complexes are patent. No Leon cells. Miscellaneous: Visualized intra-orbital contents are normal. No sherrie bullosa or paradoxical turbinate curvature. Prominent leftward nasal septal deviation., With septal spur IMPRESSION: 1. Russell sinus disease, most prominent within the right maxillary sinus. 2. Ostiomeatal complexes are patent. 3. Internal and external structures of the right internal and external ear are unremarkable. Dictated by: Fernanda Gaines M.D. on 12/28/2016 at 13:35 Assessment & Plan Acute, active #Persistent neutropenic fever -Initially thought due to suspected sinusitis based on imaging and nasal erythema on presentation. Patient has no symptoms at this point localizing infection source. CT chest and abd unrevealing. CT sinus consistent with sinusitis but no symptoms or sinus tenderness.consulted pulmonology and no bronchoscopy indicated, lungs do not seem to be the source -Discussed with ID Dr Hackett and oncology , will remove the PICC line and culture the tip - multiple BCX: Chest x-ray is negative, respiratory panel negative, Positive nasal MRSA, UA negative, Blood cultures negative 12/24 .repeat bcx 12/27 negative --appreciate ID input -- Treated with meropenem 2g q8h and vancomycin for about a week /since admission. ID switched antibiotics to ceftaroline and ciprofloxacin by mouth today 01/01 # Brief New onset Afib on 12/27,resolved -Patient had episode of atrial fibrillation with RVR for 2 hrs on 12/27. Resolved after Cardizem -Patient on Cardizem by mouth for hypertension. No history of atrial fibrillation -TSH WNL #chronic anemia, thrombocytopenia, neutropenia POA, -Pancytopenia improving -with AML in remission, s/p consolidation chemo of 5days of idarubicin IV, cytarabine (SIMÓN-C) 12/14. s/p 2units pRBC, 2PLT 12/23 -appreciate for blood products, further management, -- per Dr. Balbuena's prev notes, "transfusions with irradiated leuko-poor blood products for hematocrit less than 25% and platelets less than 15,000.": -- Gave 2 units of PRBC 12/24.transfusion of 2PRBC and 2 platelets on 12/27 # AML -Dr Balbuena following # Fluid overload, resolved -Patient had 6 kg weight gain since admission. Diuresed with IV Lasix. Responded well. Discontinue Lasix chronic, stable # hypertension, continue patient's home medication Cardizem # insomnia chronic, At bedtime melatonin, Ativan PO when necessary home med Prophylaxis:We will hold off heparin or enoxaparin, his counts are too low he does not need it. dispo: Continues to spike fever. Remains inpatient diet:general diet dvt ppx:HSQ Full code VTE Prophylaxis: Other (not indicated, platelets too low) VTE Mechanical Devices: Intermittant Pneumatic CD Resuscitation Status: CPR: Attempt Resuscitation Maksim Miller MD January 01, 2017 13:15 Maksim Miller MD January 01, 2017 13:15
--- NOTE | 2017-01-01 17:34 | PCM.PNMED ---
Subjective Date of Service January 01, 2017 Subjective Chills with some rigors and fever both last night and again this morning No new culture data Denies new skeletal pain, cough, sore throat, back pain, dysuria, diarrhea, nasal drainage, rash Has slight headache each time his fever spikes. Also noted Lt sided abd pain earlier Exam Vital Signs Vital Sign - Last Date Time Temp Pulse Resp B/P Pulse Ox O2 Delivery O2 Flow Rate FiO2 01/01/17 12:58 37.7 82 14 163/75 92 Room Air Intake and Output 12/31/16 12/31/16 01/01/17 Cumulative From/Thru 15:00 23:00 07:00 12/24/16 10:16 - 01/01/17 05:53 Intake Total 1020 ml 2487 ml 66939 ml Output Total 2800 ml 3200 ml 72060 ml Balance -1780 ml -713 ml 9522 ml Intake Oral 1020 ml 2487 ml 02064 ml IV Total 9694 ml Packed Cells 1500 ml Platelets 415 ml Output Urine Total 2800 ml 3200 ml 29079 ml # Voids 7 # Bowel Movements 0 0 2 Exam Lungs Good air movement, no wheeze, rale, rhonchi CV RRR, no m/g/r Eyes conjunctiva noninjected, sclera clear, PER Neck no GIANNI, mass, crepitus Abd Soft, normal BTs, no HSM Ext no edema Lab and Diagnostics Result Diagram: 01/01/17 0525 01/01/17 0525 X-Rays, CTs and MRIs PROCEDURE: X-RAY CHEST ONE VIEW, PORTABLE ([id number]) INDICATIONS: neutropenic fever IMPRESSION: No acute cardiopulmonary abnormality. Left-sided PICC line in place. Dictated by: Yonis Cannon M.D. on 12/24/2016 at 11:39 Approved by: Yonis Cannon M.D. on 12/24/2016 at 11:41 PROCEDURE: CT CHEST WITHOUT CONTRAST ([id number]) INDICATIONS: new pneumonia-feb neutropenic IMPRESSION: 1. Small bilateral low density pleural effusions and partially characterized perihepatic fluid. These findings may be associated with fluid overload. Please correlate clinically. 2. Patchy pulmonary opacities suspicious for postinflammatory residua given history of recent pneumonia and neutropenia. Short interval (1-2 months) surveillance recommended to ensure resolution of this finding and exclude underlying pulmonary pathology. Dictated by: Val Banks M.D. on 12/28/2016 at 12:52 PROCEDURE: CT ABDOMEN AND PELVIS WITH CONTRAST ([id number]) INDICATIONS: hi fevers in a neutropenic patient IMPRESSION: 1. Multiple partially visualized bilateral lung base nodules may represent infection given the patient's neutropenic state. Underlying malignancy cannot be excluded. Recommend a followup chest CT in 3 months to verify resolution. 2. Small bilateral pleural effusions improved since the previous study. 3. Stable low-density pancreatic nodules. Dictated by: Sam Chris M.D. on 12/31/2016 at 12:51 PROCEDURE: CT SINUSES ([id number]) INDICATIONS: rhinitis, right ear pain TECHNIQUE: Noncontrast 3.0 mm axial images acquired from the frontal sinuses to the mid- sella, with coronal and sagittal reformats. COMPARISON: None. FINDINGS: Image quality: Excellent. Sinuses: There is mild right and minimal left maxillary sinus mucosal thickening. Mild russell sinus the coastal thickening is present within the ethmoid and frontal sinuses with minimal sphenoid sinus mucosal thickening. Ostiomeatal Complexes: Ostiomeatal complexes are patent. No Leon cells. Miscellaneous: Visualized intra-orbital contents are normal. No sherrie bullosa or paradoxical turbinate curvature. Prominent leftward nasal septal deviation., With septal spur IMPRESSION: 1. Russell sinus disease, most prominent within the right maxillary sinus. 2. Ostiomeatal complexes are patent. 3. Internal and external structures of the right internal and external ear are unremarkable. Dictated by: eFrnanda Gaines M.D. on 12/28/2016 at 13:35 Assessment & Plan IMP Persistent fever following episode of neutropenia No evidence that this is a lower respiratory tract infection. He has pansinusitis on recent CT and this could certainly explain his ongoing fevers. I 've added oxymetazoling spray and Dr. Hackett has changed his antibiotics. ENT consult for endoscopic aspiration would be an option if he fails to defervesce in order to exclude unusual or resistant organisms such as fungi nocardia and actino. REC Oxymetazolne spray TID x 5 days Empiric abx per ID Consider ENT consult for endoscopic sampling of sinus drainage if he fails to improve VTE Prophylaxis: Other (not indicated, platelets too low) VTE Mechanical Devices: Intermittant Pneumatic CD Resuscitation Status: CPR: Attempt Resuscitation Eliazar Fortune MD January 01, 2017 17:34 Responded well. Discontinue Lasix chronic, stable # hypertension, continue patient's home medication Cardizem # insomnia chronic, At bedtime melatonin, Ativan PO when necessary home med Prophylaxis:We will hold off heparin or enoxaparin, his counts are too low he does not need it. dispo: Continues to spike fever. Remains inpatient diet:general diet dvt ppx:HSQ Full code VTE Prophylaxis: Other (not indicated, platelets too low) VTE Mechanical Devices: Intermittant Pneumatic CD Resuscitation Status: CPR: Attempt Resuscitation Eliazar Fortune MD January 01, 2017 17:34
--- NOTE | 2017-01-01 18:29 | NUR ---
Pain/Fever Management Pain/Fever managed with 650mg of acetaminophen every 4 hours and 600mg of ibuprofen every 6 hours. Patient denied nausea this shift. Patient up independent in room. at bedside. Call light and tray table within reach. Will continue to monitor patient hourly.
[2017-01-01] MEDS: LORazepam 1 mg Tablet PO SCH (20:46)
[2017-01-01 20:56] VITALS: BP 138/71; PULSE 67; RESP 18; O2SAT 98
--- NOTE | 2017-01-01 23:54 | NUR ---
Activity Patient ambulated in halls for 30+ minutes, denies SOB, steady gait. Tolerating ABX treatment, no noted adverse side effects. Fever managed effectively with alternating Tylenol and Ibuprofen q3h. Sleeping soundly at this time. Bed in low position, call light within reach, and intentional rounding. Will continue plan of care.
[2017-01-02] VITALS (11 sets, daily range): BP systolic 126–199; BP diastolic 64–84; PULSE 68–130; RESP 16–20; O2SAT 96–97
[2017-01-02 05:55] LABS: BASOPHILS % (AUTO) 0.5 % (0-3); EOSINOPHILS % (AUTO) 0.5 % (0-5); MONOCYTES % (AUTO) 12.8 % (4-12); Mean Corpuscular Hemoglobin 30.3 pg (27.0-35.0); Mean Corpuscular Volume 88.9 fL (81-100); NEUTROPHILS % (AUTO) 73.4 % (40-74)
[2017-01-02 06:33] LABS: Platelet Count 23 bil/L (150-400)
[2017-01-02] MEDS: Pantoprazole 40 mg ER24 Tablet PO SCH (06:43)
[2017-01-02] MEDS: Ceftaroline Inj 600 MG in Dextrose 5% 250 ML IV SCH ×2 (08:04→20:44)
[2017-01-02] MEDS: Mupirocin 2% 22 Gm Ointment NASAL SCH ×2 (08:39→20:47)
[2017-01-02] MEDS: Diltiazem CD 120 mg ER24 Capsule PO SCH (08:39)
[2017-01-02] MEDS: 0.9% Sodium Chloride 250 ML IV SCH (09:00)
--- NOTE | 2017-01-02 09:55 | DRSVH ---
PROCEDURE: X-RAY CHEST, TWO VIEWS ([id number]) INDICATIONS: Cough and fever TECHNIQUE: 2 views of the chest were acquired. COMPARISON: [facility], CT, CT CHEST WO CON, 12/28/2016, 12:29. [facility], CR, XR CHEST 1VW, 12/30/2016, 18:01. [facility], CR, XR CHEST 2VW, 12/28/2016, 9:43. FINDINGS: Surgical changes and devices: None. Lungs and pleura: There are persistent small bilateral pleural effusions. There are scattered indist inct small nodular opacities redemonstrated bilaterally, similar in appearance to the prior studies. Mediastinum: Mediastinal contours are normal. Heart size is normal. Bones and chest wall: No suspicious bony abnormalities. Soft tissues appear unremarkable. IMPRESSION: 1. Persistent small pleural effusions and scattered indistinct nodular opacities similar in appearan ce to the prior studies. Dictated by: Steve Brand M.D. on 01/02/2017 at 9:47 Approved by: Steve Brand M.D. on 01/02/2017 at 9:48
--- NOTE | 2017-01-02 10:10 | NUR ---
Social Work- Continued D/C Planning Data: EMR reviewed. Pt is on day 9 of hospitalization for neutropenic fever per H&P. Pt is not medically ready for discharge at this time. Pt's WBC is 2.0. Pt will not discharge until blood count drastically improves. Pt to discharge home with to transport, no anticipated discharge needs. SW will continue to follow as needs arise. Assessment: Pt who is independent at baseline. Plan: Pt to discharge home with to transport, no anticipated discharge needs. SW will continue to follow as needs arise. Caitlin Zepeda, [employer]
[2017-01-02] MEDS: Omega-3 Fatty Acids 1,000 mg Capsule PO SCH (11:08)
--- NOTE | 2017-01-02 12:06 | NUR ---
Energy Pt awoke with a general feeling of malaise and weakness. No fevers noted overnight however pt is currently warm to the touch and feels flushed. Decreased interest in breakfast but denies nausea and refuses any antiemetics. Vitamins delayed until later in the morning and breakfast dispersed. Tylenol/Motrin to be given as ordered to control fevers. assisted with shower. At this time pt reports feeling "more normal" and has been up ambulating in chew. Will continue to monitor closely.
--- NOTE | 2017-01-02 12:24 | PCM.PNMED ---
Subjective Date of Service January 02, 2017 Subjective no overnight event, pt denied any complaints, no STAPLES, sinus tenderness, ANC is going up 1.3zx69% to 2.0x73.4% today last temp 37.7 1pm yesterday, pt does get tylenol frequently PICC tip culture ngtd Exam Vital Signs Vital Sign - Last Date Time Temp Pulse Resp B/P Pulse Ox O2 Delivery O2 Flow Rate FiO2 01/02/17 09:49 37.3 83 16 149/73 97 Room Air Intake and Output 01/01/17 01/01/17 01/02/17 Cumulative From/Thru 15:00 23:00 07:00 12/24/16 10:16 - 01/02/17 05:59 Intake Total 1568 ml 2376 ml 1112 ml 53470 ml Output Total 1400 ml 900 ml 51570 ml Balance 1568 ml 976 ml 212 ml 88743 ml Intake Oral 2376 ml 850 ml 31367 ml IV Total 1568 ml 262 ml 22275 ml Packed Cells 1500 ml Platelets 415 ml Output Urine Total 1400 ml 900 ml 13685 ml # Voids 7 # Bowel Movements 1 0 3 Exam NAD, comfortably laying down on the bed no JVD, MMM, no LAD RRR, nl s1, s2 no mrg CTAB, no w,c S,ND,NT,normoactive BS+ warm, no edema, pulses 2/2 IVs and Medications Medications Reviewed: Medications were reviewed in detail Lab and Diagnostics Result Diagram: 01/02/17 0520 01/02/17 0520 X-Rays, CTs and MRIs PROCEDURE: X-RAY CHEST ONE VIEW, PORTABLE ([id number]) INDICATIONS: neutropenic fever IMPRESSION: No acute cardiopulmonary abnormality. Left-sided PICC line in place. Dictated by: Yonis Cannon M.D. on 12/24/2016 at 11:39 Approved by: Yonis Cannon M.D. on 12/24/2016 at 11:41 PROCEDURE: CT CHEST WITHOUT CONTRAST ([id number]) INDICATIONS: new pneumonia-feb neutropenic IMPRESSION: 1. Small bilateral low density pleural effusions and partially characterized perihepatic fluid. These findings may be associated with fluid overload. Please correlate clinically. 2. Patchy pulmonary opacities suspicious for postinflammatory residua given history of recent pneumonia and neutropenia. Short interval (1-2 months) surveillance recommended to ensure resolution of this finding and exclude underlying pulmonary pathology. Dictated by: Vla Banks M.D. on 12/28/2016 at 12:52 PROCEDURE: CT ABDOMEN AND PELVIS WITH CONTRAST ([id number]) INDICATIONS: hi fevers in a neutropenic patient IMPRESSION: 1. Multiple partially visualized bilateral lung base nodules may represent infection given the patient's neutropenic state. Underlying malignancy cannot be excluded. Recommend a followup chest CT in 3 months to verify resolution. 2. Small bilateral pleural effusions improved since the previous study. 3. Stable low-density pancreatic nodules. Dictated by: Sam Chris M.D. on 12/31/2016 at 12:51 PROCEDURE: CT SINUSES ([id number]) INDICATIONS: rhinitis, right ear pain TECHNIQUE: Noncontrast 3.0 mm axial images acquired from the frontal sinuses to the mid- sella, with coronal and sagittal reformats. COMPARISON: None. FINDINGS: Image quality: Excellent. Sinuses: There is mild right and minimal left maxillary sinus mucosal thickening. Mild russell sinus the coastal thickening is present within the ethmoid and frontal sinuses with minimal sphenoid sinus mucosal thickening. Ostiomeatal Complexes: Ostiomeatal complexes are patent. No Leon cells. Miscellaneous: Visualized intra-orbital contents are normal. No sherrie bullosa or paradoxical turbinate curvature. Prominent leftward nasal septal deviation., With septal spur IMPRESSION: 1. Russell sinus disease, most prominent within the right maxillary sinus. 2. Ostiomeatal complexes are patent. 3. Internal and external structures of the right internal and external ear are unremarkable. Dictated by: Fernanda Gaines M.D. on 12/28/2016 at 13:35 Assessment & Plan Acute, active #Persistent neutropenic fever, POA, Initially thought due to suspected sinusitis based on imaging and nasal erythema on presentation. Patient has no symptoms at this point localizing infection source. CT chest and abd unrevealing. CT sinus consistent with sinusitis but no symptoms or sinus tenderness.consulted pulmonology and no bronchoscopy indicated, lungs do not seem to be the source -pt is clinically stable with currently tx -follow up with ID Dr Hackett and oncology , PICC line discontinued, tip culture in progress - multiple BCX: Chest x-ray is negative, respiratory panel negative, Positive nasal MRSA, UA negative, Blood cultures negative 12/24 .repeat bcx 12/27 negative --appreciate ID input -- Treated with meropenem 2g q8h and vancomycin for about a week /since admission. ID switched antibiotics to ceftaroline and ciprofloxacin by mouth -will consult ENT for sinus sample per pulmonary to exclude atypical sinus infection #chronic anemia, thrombocytopenia, neutropenia POA, -ANC improving, PLT wax and wane, no signs of active bleeding -with AML in remission, s/p consolidation chemo of 5days of idarubicin IV, cytarabine (SIMÓN-C) 12/14. s/p 2units pRBC, 2PLT 12/23 -appreciate for blood products, further management, -- per Dr. Balbuena's prev notes, "transfusions with irradiated leuko-poor blood products for hematocrit less than 25% and platelets less than 15,000.": -- Gave 2 units of PRBC 12/24.transfusion of 2PRBC and 2 platelets on 12/27 chronic, stable, resolved # Brief New onset Afib on 12/27,resolved -Patient had episode of atrial fibrillation with RVR for 2 hrs on 12/27. Resolved after Cardizem -Patient on Cardizem by mouth for hypertension. No history of atrial fibrillation -TSH WNL # AML -Dr Balbuena following # Fluid overload, resolved -Patient had 6 kg weight gain since admission. Diuresed with IV Lasix. Responded well. Discontinue Lasix # hypertension, continue patient's home medication Cardizem # insomnia chronic, At bedtime melatonin, Ativan PO when necessary home med Prophylaxis:We will hold off heparin or enoxaparin, his counts are too low he does not need it. dispo: Continues to spike fever. Remains inpatient diet:general diet dvt ppx:HSQ Full code VTE Prophylaxis: Other (not indicated, platelets too low) VTE Mechanical Devices: Intermittant Pneumatic CD Resuscitation Status: CPR: Attempt Resuscitation Time spent 35min Eben Lucio MD January 02, 2017 12:23
--- NOTE | 2017-01-02 12:30 | PROG NOTE ---
[address] [address] PROGRESS NOTE PATIENT: JEFF AMEZCUA : 1945 MR#: [id number] ADMIT: 12/24/2016 JOB ID: [id number] ONCOLOGY PROGRESS NOTE: DATE: 01/02/2017 SUBJECTIVE: Patient is a 71-year-old gentleman with acute myelogenous leukemia in remission. He remains hospitalized with febrile neutropenia after recent consolidation chemotherapy with SIMÓN-C plus idarubicin. He has not had any significant temperature elevations over night, although he has been on Tylenol every 4 hours the past 24 hours. He did note a mild episode of shaking, but did not mount a high fever early this morning. He is on antibiotic coverage with Ceftaroline 600 mg IV every 12 hours and Cipro 750 mg by mouth twice daily. Blood cultures have been negative. Fungal antibodies and galactomannan have been negative. OBJECTIVE: Vitals: T 37.3, P 83, R 16, BP 149/73, O2 saturation 97% on room air. HEENT: Conjunctivae slightly pale. Chest clear. No wheezes or crackles. Cardiac exam: Regular rate and rhythm with normal S1, S2. Abdomen: Soft, nontender, with normoactive bowel tones. No splenomegaly or masses. Extremities: No edema. 2+ distal pulses. No calf tenderness. LABORATORIES: WBC 2.0 with 73% neutrophils, 12% lymphocytes, 13% monocytes. Hemoglobin 9.5, hematocrit 27.9%, platelets 23,000. BUN 11, creatinine 0.46, glucose 110. ASSESSMENT AND PLAN: Acute myelogenous leukemia, status post induction, re-induction, and consolidation chemotherapy with SIMÓN-C and idarubicin: The patient's white blood cell count is gradually improving. Although he still has pancytopenia, there is no definite indication for transfusion support at this time. Source of shaking chills and fevers remains problematic. Certainly, sinusitis would be a significant consideration. His CT imaging and chest film suggest small nodular opacities in both lungs, which in an immunosuppressed patient, could represent multiple infectious possibilities. His PICC line was removed yesterday, with cultures pending. Drug fever is also a possibility, although the pattern is not typical. Continue to monitor. I recommended he not use his scheduled Tylenol so as to allow us to determine if he is still mounting significant fevers during the next 24 hours.
--- NOTE | 2017-01-02 14:51 | PCM.PNMED ---
Subjective Date of Service January 02, 2017 Subjective Napping this afternoon. No fevers recorded by staff but he did have chills and slight rigors. His measured his temp with her home digital oral thermometer and obtained 101.4. Apparently he is receiving acetaminophen around the clock and his doll dresser has asked staff to stop and only give this PRN fevers so we can monitor more accurately. Denies cough, SOB, sore throat, new STAPLES, nasal drainage, abd painm, diarrhea, joint tenderness, new rash Exam Vital Signs Vital Sign - Last Date Time Temp Pulse Resp B/P Pulse Ox O2 Delivery O2 Flow Rate FiO2 01/02/17 13:22 36.8 72 16 126/64 96 Room Air Intake and Output 01/01/17 01/01/17 01/02/17 Cumulative From/Thru 15:00 23:00 07:00 12/24/16 10:16 - 01/02/17 05:59 Intake Total 1568 ml 2376 ml 1112 ml 57865 ml Output Total 1400 ml 900 ml 36753 ml Balance 1568 ml 976 ml 212 ml 17393 ml Intake Oral 2376 ml 850 ml 06883 ml IV Total 1568 ml 262 ml 37363 ml Packed Cells 1500 ml Platelets 415 ml Output Urine Total 1400 ml 900 ml 35228 ml # Voids 7 # Bowel Movements 1 0 3 Exam Not examined Lab and Diagnostics Result Diagram: 01/02/17 0520 01/02/17 0520 X-Rays, CTs and MRIs 2V CXR 01/02 personally reviewed. Compared to similar film from 12/28 there is slight clearing of Rt basal atelectasis/consolidation and unchanged small bilat effusions Assessment & Plan Previously healthy 71 yo diagnosed with AML, presenting with nonresolving sinus infection. Now s/p induction chemo complicated by pseudomonas bacteremia and recent consolidation with Mariaa-C and Idarubicin. This admission prompted by rapid onset of painful swelling of nose from which MRSA was cultured. This has completely cleared but patient continues to have episodes of chills rigors and fever once or twice daily IMP In the absence of any pulmonary symptoms or altered oxygenation I don't think this is a primary lung infection. While he does have multiple peripheral subcentimeter nodules, there is no progression and his most recent film appears to show some resolution. We could perform bronch with BAL but I think a more useful exam would be for ENT to endoscopically sample his sinus drainage if any to exclude an atypical ( fungal ) or resistant ( pseudomonas ) sinusitis. If this can't be done soon, we could perform the bronch through a transnasal approach and we often are able to visualize the meatal complex with during our procedure and obtain a specimen if there is gross drainage. Before any procedure involving manipulation of his nasal mucosa, I would advise platelet transfusion just prior to the procedure. REC Request ENT to sample sinus drainage if any and submit for fungal and bacterial cultures, including anareobic cultures. If this is difficult to arrange OR if he develops cough, SOB, worsening pulmonary infiltrates or hypoxemia, we would perform a bronch with BAL and hope to obtain sample of sinus drainage at that time. We will follow with you. VTE Prophylaxis: Other (not indicated, platelets too low) VTE Mechanical Devices: Intermittant Pneumatic CD Resuscitation Status: CPR: Attempt Resuscitation Eliazar Fortune MD January 02, 2017 14:51
[2017-01-02] MEDS: LORazepam 1 mg Tablet PO SCH (20:50)
[2017-01-02] MEDS: Acetaminophen IV 1,000 MG in IV Premix 1 EACH IV PRN (22:48)
[2017-01-03] VITALS (8 sets, daily range): BP systolic 131–175; BP diastolic 61–77; PULSE 69–101; RESP 16–18; O2SAT 89–99
[2017-01-03] MEDS: Acetaminophen IV 1,000 MG in IV Premix 1 EACH IV PRN ×2 (04:43→13:19)
--- NOTE | 2017-01-03 05:43 | NUR ---
Fever At start of shift fever and blood pressure were elevated, IV Tylenol hung and positive results were noted. Six hours post tylenol, pt developed chills with no fever. Tylenol infused, resolution of chills within 20 minutes. IV antibiotics continued to be infused per orders. Hourly rounding ongoing.
[2017-01-03 06:21] LABS: BASOPHILS % (AUTO) 0 % (0-3); EOSINOPHILS % (AUTO) 0 % (0-5); MONOCYTES % (AUTO) 9.2 % (4-12); Mean Corpuscular Hemoglobin 30.1 pg (27.0-35.0); Mean Corpuscular Volume 88.6 fL (81-100); NEUTROPHILS % (AUTO) 75.7 % (40-74)
[2017-01-03] MEDS: Pantoprazole 40 mg ER24 Tablet PO SCH (06:40)
[2017-01-03 07:14] LABS: Platelet Count 22 bil/L (150-400)
[2017-01-03] MEDS: Ceftaroline Inj 600 MG in Dextrose 5% 250 ML IV SCH ×2 (08:12→21:23)
[2017-01-03] MEDS: Mupirocin 2% 22 Gm Ointment NASAL SCH ×2 (08:13→21:25)
[2017-01-03] MEDS: Diltiazem CD 120 mg ER24 Capsule PO SCH (08:14)
[2017-01-03] MEDS: Omega-3 Fatty Acids 1,000 mg Capsule PO SCH (08:15)
--- NOTE | 2017-01-03 08:22 | PROG NOTE ---
[address] [address] PROGRESS NOTE PATIENT: JEFF AMEZCUA : 1945 MR#: [id number] ADMIT: 12/24/2016 JOB ID: [id number] DATE: 01/03/2017 SUBJECTIVE: The patient is a 71-year-old gentleman with acute myelogenous leukemia, in remission. He remains hospitalized with febrile neutropenia after recent consolidation chemotherapy with leonor-C plus idarubicin. After holding his scheduled Tylenol, he had shaking chills and fever up to 39.5 degrees last evening. He is now on a Tylenol drip. No cultures were obtained yesterday. Catheter tip cultures are pending. Prior blood cultures have had no evidence of bacterial growth, with fungal cultures still pending. He is on ceftaroline 600 mg IV every 12 hours, and ciprofloxacin 750 mg by mouth twice daily. He denies any sinus pain. He has rare nonproductive cough. No atypical bleeding or bruising. OBJECTIVE: Vitals: T-max 39.5, T 37.4, P 94, R 18, BP 175/63. HEENT: Conjunctivae slightly pale. Mucous membranes moist. No oral lesions. Nodes: No adenopathy in the neck or axilla. Chest: A few basilar crackles. Cardiac exam: Tachycardic during febrile episode but currently normal rhythm with no significant murmurs or rubs. Abdomen: Soft, nontender, with normoactive bowel tones. No splenomegaly or masses. Extremities: Trace pedal edema. 2+ distal pulses. No calf tenderness. LABORATORIES: WBC 1.9, hemoglobin 9.5, hematocrit 28%, platelets 22,000. BUN 11, creatinine 0.5, glucose 133. Blood cultures, fungal cultures are pending, but the bacterial cultures showed no growth at two days. Catheter tip culture-pending. IMAGING: (Chest x-ray) on January 02, 2017, showed small pleural effusions and scattered indistinct nodular opacities. ASSESSMENT AND PLAN: Acute myelogenous leukemia, status post induction, re-induction, and consolidation chemotherapy with leonor-C and idarubicin: White blood cell count is currently 1.9 with 76% neutrophils and 11% lymphocytes. Platelets are decreased, as is hematocrit, but no definite indication for transfusion support unless he is to undergo an invasive procedure, in which case I would recommend transfusion with platelets prior to the procedure. He continues to exhibit extremely high fevers. Await results of fungal cultures. Potential sources of infection would include sinuses and his lungs. Note that imaging on October 08, 2016, did not show any nodular opacities in his lungs, which are currently present. CT of the sinuses on December 28, 2016, shows prominent right maxillary sinus opacification, and minimal left maxillary sinus mucosal thickening. Await further input from Pulmonary, but I would not be opposed to further investigation. Recall that the patient has had prior infection with Pseudomonas aeruginosa from the initial blood cultures and a prior urine culture positive for Enterococcus faecalis. Continue current supportive care.
[2017-01-03] MEDS: 0.9% Sodium Chloride 250 ML IV SCH (09:32)
--- NOTE | 2017-01-03 10:25 | PCM.PNMED ---
Subjective Date of Service January 03, 2017 Subjective pt had recurrent fever of 39.5 yesterday, required tylenol 1g, ibuprofen. pt had weakness, chills, denied SOB, abdominal pain, chest pain, no sinus tenderness Exam Vital Signs Vital Sign - Last Date Time Temp Pulse Resp B/P Pulse Ox O2 Delivery O2 Flow Rate FiO2 01/03/17 10:17 77 01/03/17 08:11 37.2 16 145/75 96 Room Air Intake and Output 01/02/17 01/02/17 01/03/17 Cumulative From/Thru 15:00 23:00 07:00 12/24/16 10:16 - 01/03/17 05:54 Intake Total 250 ml 1900 ml 939 ml 48071 ml Output Total 1250 ml 1300 ml 58113 ml Balance 250 ml 650 ml -361 ml 26248 ml Intake Oral 1900 ml 400 ml 09546 ml IV Total 250 ml 539 ml 34511 ml Packed Cells 1500 ml Platelets 415 ml Output Urine Total 1250 ml 1300 ml 17684 ml # Voids 7 # Bowel Movements 0 3 Exam cachetic middle-aged male, looked weak comfortably laying down on the bed no JVD, MMM, no LAD, no sinus tenderness RRR, nl s1, s2 no mrg CTAB, no w,c S,ND,NT,normoactive BS+ warm, no edema, pulses 2/2 IVs and Medications Medications Reviewed: Medications were reviewed in detail Lab and Diagnostics Result Diagram: 01/03/17 0545 01/03/17 0545 X-Rays, CTs and MRIs 2V CXR 01/02 personally reviewed. Compared to similar film from 12/28 there is slight clearing of Rt basal atelectasis/consolidation and unchanged small bilat effusions Assessment & Plan Acute, active #Persistent neutropenic fever, POA, Initially thought due to suspected sinusitis based on imaging and nasal erythema on presentation. Patient has no symptoms at this point localizing infection source. CT chest and abd unrevealing. CT sinus consistent with sinusitis but no symptoms or sinus tenderness.previously consulted pulmonology and no bronchoscopy indicated, lungs do not seem to be the source although CT abd 12/31 showed Multiple partially visualized bilateral lung base nodules -pt is clinically stable but fever is persistent -follow up with ID Dr Hackett and oncology , PICC line discontinued, tip culture in progress - multiple BCX: Chest x-ray is negative, respiratory panel negative, Positive nasal MRSA, UA negative, Blood cultures negative 12/24 .repeat bcx 12/27 negative -- Treated with meropenem 2g q8h and vancomycin for about a week /since admission. ID switched antibiotics to ceftaroline and ciprofloxacin by mouth , possibly start anti-fungal agent, per ID -non con chest CT to visualize nodules, interval increase in size. if indicated , needs BAL or bronchoscopic bx- but not unlikely feasible given thrombocytopenia. -defer ENT consult for sinus discharge, as pt is not symptomatic, discussed with . #chronic anemia, thrombocytopenia, neutropenia POA, -ANC stable, PLT wax and wane, no signs of active bleeding -with AML in remission, s/p consolidation chemo of 5days of idarubicin IV, cytarabine (SIMÓN-C) 12/14. s/p 2units pRBC, 2PLT 12/23 -appreciate for blood products, further management, -- per Dr. Balbuena's prev notes, "transfusions with irradiated leuko-poor blood products for hematocrit less than 25% and platelets less than 15,000.": -- Gave 2 units of PRBC 12/24.transfusion of 2PRBC and 2 platelets on 12/27 chronic, stable, resolved # Brief New onset Afib on 12/27,resolved -Patient had episode of atrial fibrillation with RVR for 2 hrs on 12/27. Resolved after Cardizem -Patient on Cardizem by mouth for hypertension. No history of atrial fibrillation -TSH WNL # AML -Dr Balbuena following # Fluid overload, resolved -Patient had 6 kg weight gain since admission. Diuresed with IV Lasix. Responded well. Discontinue Lasix # hypertension, continue patient's home medication Cardizem # insomnia chronic, At bedtime melatonin, Ativan PO when necessary home med Prophylaxis:We will hold off heparin or enoxaparin, his counts are too low he does not need it. dispo: Continues to spike fever. Remains inpatient diet:general diet dvt ppx:HSQ Full code VTE Prophylaxis: Other (not indicated, platelets too low) VTE Mechanical Devices: Intermittant Pneumatic CD Resuscitation Status: CPR: Attempt Resuscitation Time spent 35min Eben Lucio MD January 03, 2017 10:25
--- NOTE | 2017-01-03 14:35 | DRSVH ---
PROCEDURE: CT CHEST WITHOUT CONTRAST ([id number]) INDICATIONS: F/U pulm nodules-AML with fever TECHNIQUE: Noncontrast 5 mm thick sections acquired from the pulmonary apices to the posterior costophrenic angl es. 7 mm thick coronal and sagittal MIP reformats were then acquired. For radiation dose reduction, the following was used: automated exposure control, adjustment of mA and/or kV according to patient size. COMPARISON: [facility], CT, CT ABD PEL[facility] W CON[facility], 12/[facility]/2016, 12:29. FINDINGS: Image quality: Excellent. Lungs and pleura: Small bilateral pleural effusions with adjacent atelectasis. Scattered subcentimet er bilateral widespread pulmonary nodules, demonstrating mild surrounding groundglass. There is diffu se, mild interval increase in size and conspicuity since the prior study dated 12/28/16. For example pl eural based nodules on image 27 in the left upper lobe measures 8 mm, previously 2 mm. Mediastinum: Heart size is normal. There is trace pericardial effusion. No mediastinal adenopathy b y size criteria. Thoracic aorta and central pulmonary arteries are normal in size. Esophagus is nor mal in caliber. No hiatal hernia. Bones and chest wall: No suspicious bony lesions. No vertebral body compression fractures. No axil levi or supraclavicular adenopathy by size criteria. Thyroid gland unremarkable. Abdomen: In the visualized liver, there is suggestion of innumerable hypodense ill-defined nodules a t the left and right lobes, however limited evaluation in the absence of IV contrast. Of note, on the prior study dated 12/31/16 these were not present. Similar-appearing lesions are now present in the s pleen IMPRESSION: Interval progression in widespread subcentimeter bilateral pulmonary nodules with surrounding groundg lass attenuation suggesting an infectious or inflammatory etiology. Septic emboli in the differential . Please correlate clinically. Small bilateral pleural effusions with adjacent atelectasis appear stable to mildly decreased. Trace pericardial effusion. Ill-defined nodules within the liver and spleen which appear new since prior study. The rapid develop ment is suggestive of infection, possibly multiple micro-abscesses, such as candidiasis in the immuno compromised setting. Findings were personally telephoned to Dr. Hackett 01/03/17 1434 hours Dictated by: Paulino Joseph M.D. on 01/03/2017 at 13:25 Approved by: Paulino Joseph M.D. on 01/03/2017 at 14:34
[2017-01-03 15:39] LABS: Bilirubin, Direct 0.5 mg/dL (0.0-0.3)
--- NOTE | 2017-01-03 15:41 | NUR ---
ACTIVITY Patient denies pain. Poor appetite. Tolerating liquids PO and his diet well. Denies nausea. No emesis noted. Patient ambulated in the hallway with his . Gait is steady. Patient complained of fever and chills at noon after his CT scan. T-38.6. IV APAP administered. T continues to be elevated at this time. Per Dr. Lucio use IV APAP today and hold off on Ibuprofen. Platelet count 22,000. No transfusion at this time per standing orders. No signs/symptoms of bleeding noted. Dr. Hackett is at the bedside and new orders for PO antibiotic will be entered by MD. Patient continues to be on tele. Per telex operator patient is on sinus rhythm; HR-70's. Will continue to monitor.
--- NOTE | 2017-01-03 18:56 | DRSVH ---
[facility] [address] [facility] [place] [address] Echocardiogram Report Name: JEFF AMEZCUA LStudy Date: 01/03/2017 Height: 72 in Hospital Exam Location: [facility] Weight: 167 lb Gender: Male BSA: 2. 0 m2 : 1945 Age: 71 yrs BP: 140 /61 mmHg Reason For Study: Endocarditis Ordering Physician: HOSPITALIST [facility] Performed By: Yesy Ray Referring Physician: Dr. Addie Bryant Interpretation Summary Normal sinus rhythm. Normal LV size, wall thickness, wall motion and LV systolic function. EF is 60-65%. There is mild biatrial enlargement. Mitral valve leaflets are normal; trace mitral regurgitation. Aortic valve leaflets are normal; trace aortic regurgitation. Tircuspid valve leaflets are normal; there is trace central regurgitation. Estimated PA systolic pressure is 43 mm Hg assuming RA pressure of 8 mm hg. No obvious vegetations seen. Comapred to prior study 10/09/2016 left sided pleural effusion is no longer seen. Otherwise no significant changes have occurred. Procedure: A two-dimensional transthoracic echocardiogram with color flow and Doppler was performed. The study quality was technically good. Comparison is made with the echocardiogram of 10-09-16. The patient was in normal sinus rhythm during the exam. Left Ventricle: The left ventricle is normal in size, wall thickness, and systolic function without any focal wall motion abnormalities. The ejection fraction is estimated to be 60-65%. Assessment of diastolic parameters indicates normal left ventricular diastolic function and normal filling pressures. Right Ventricle: The right ventricle is normal in size, thickness and function. Atria: The left atrium is mildly dilated. The right atrium is mildly dilated. The interatrial septum is intact with no evidence for an atrial septal defect. Mitral Valve: The mitral valve is normal. There is trace mitral regurgitation. Aortic Valve: The aortic valve is trileaflet. The aortic valve opens well. No aortic regurgitation is present. Tricuspid Valve: The tricuspid valve is normal. There is a trace or physiologic amount of tricuspid regurgitation. The right ventricular systolic pressure is estimated at 44 mmHg assuming a right atrial pressure of 8 mm Hg. Pulmonic Valve: The pulmonic valve leaflets are thin and pliable; valve motion is normal. There is no pulmonic valvular regurgitation. Great Vessels: The aortic root is normal size. The ascending aorta is at the upper limits of normal in size. The IVC is dilated (diameter is greater than 2.1 cm) yet it collapses greater than 50% with a sniff. This suggests a right atrial pressure of 8 mm Hg. Pericardium/ Pleura There is no pericardial effusion. There is no pleural effusion. MMode/2D Measurements & Calculations LVIDd: 5.3 cm LA dimension: 4.1 cm RA long axis Ao root diam LVIDs: 3.2 cm FS: 38.7 % LA A2 area: 33.0 cm RA area Aortic Jxn: 2.6 cm IVSd: 0.89 cm LA A4 area: 28.9 cm asc Aorta Diam LVPWd: 0.69 cm LA length (vol) : 24.6 cm RA vol Ao Arch Diam (Prox LA vol: 127.9 ml : 87.2 ml Trans): 3.1 cm LA vol index RA : 44.2 mm/ RVDd major IVC diam: 2.4 cm : 7.0 cm LV orourke. diameter/BSA LV sys. diameter/BSA RVD1 (basal) RVD2 (mid): 3.1 cm (cm/m^2): 2.7 (cm/m^2): 1.6 Doppler Measurements & Calculations Ao V2 max MV E max alfredo MV E/A: 1.1 TR max alfredo : 241.2 cm/sec : 102.6 cm/sec Med Peak E' Alfredo : 298.9 cm/sec Ao max PG MV A max alfredo TR max PG : 23.3 mmHg : 90.7 cm/sec E/E' med: 12.8 : 35.7 mmHg Ao mean PG MV P1/2t: 58.8 msec Lat Peak E' Alfredo PA V2 max : 11.7 mmHg : 91.6 cm/sec E/E' lat: 11.3 PA mean PG E/e' average: 12.1 PA Accel Time : 0.11 sec MV dec time MV P1/2t max alfredo Ao V2 mean PA V2 mean : 0.20 sec : 154.7 cm/sec : 64.2 cm/sec MVA(P1/2t): 3.7 cm2 Ao V2 VTI: 46.6 cm Reading Physician:06:55 PM
--- NOTE | 2017-01-03 19:02 | PROG NOTE ---
[address] [address] PROGRESS NOTE PATIENT: JEFF AMEZCUA : 1945 MR#: [id number] ADMIT: 12/24/2016 JOB ID: [id number] DATE: 01/03/2017 REASON FOR FOLLOWUP: Persistent fevers after recovery of neutropenia. INTERVAL HISTORY: Recall this is a complex, 71-year-old gentleman who was admitted now 10 days ago. At that time, he had febrile neutropenia and he seemed to improve initially with broad-spectrum antibiotics but then has had recrudescent fevers, even as his white count has recovered. This has raise suspicion about an occult fungal infection and/or occult sinus or pulmonary process, an numerous investigations have been conducted. Over the past 48 hours, the patient has had worsening of his fevers and in general has felt increasingly poorly. He reports he is getting weaker and now clearly thinks he is declining rather than improving as he was during much of last week. He is having increasing fevers, sweats, and chills. No real focal symptoms except for some minimal cough. No nausea, vomiting, diarrhea, or dysuria. PHYSICAL EXAMINATION: Reveals a gentleman who is febrile to 38.8 right at this moment. Pulse 83, respiratory rate 16, blood pressure 140/61. He is saturating well on room air. He looks more pale and weaker than he did when I last saw him on Tuesday, two days ago. Examination of the head is unremarkable. Eyes: No change. Oral cavity without change. Lungs relatively clear. Abdomen soft and nontender without appreciable hepatosplenomegaly. Skin color though demonstrates a generalized pallor that was not present before and, in general, the patient just looks weak. No issues with his peripheral IV. His PICC has been pulled. LABORATORIES: Include white count now stable at 4766-3308, 75% segs for a total neutrophil count of 1500. The differential white count is basically normal. Creatinine 0.5. Last LFTs were on December 31, and those were mildly elevated. ALT was 74. Alk phos was normal at 157. Urinalysis negative. The patient's last galactomannan and Fungitell assays are partially back. The galactomannan is negative from December 31. Fungitell is pending. Many blood cultures from this admission are back. They are all negative, including multiple sets of fungal blood cultures drawn over the last week. The PICC line was discontinued on Tuesday, January 01, in an effort to see whether that might contribute to his fever and the culture of the tip has been negative. IMAGING: Is remarkable. Today's chest CT, which I ordered to follow up on his pulmonary nodules, actually showed that there may have been some increase in the pulmonary nodules and septic emboli was in the differential diagnosis, interestingly. Also noted was some small pleural effusions and ill-defined nodules which are new. I discussed this in detail with the radiologist and we both feel that the appearance of the lesions in the liver and spleen is certainly typical of hepatosplenic candidiasis. A chest x-ray done yesterday showed small nodular densities as were seen previously. Interestingly, the abdominal CT done three days ago, looking specifically for hepatosplenic candidiasis did not show any lesions. IMPRESSION: This is a fascinating case of a gentleman who initially presented two or three months ago with Pseudomonas sepsis and the new diagnosis of AML after an almost 50-day long hospitalization. He was discharged in good condition. He then got consolidative chemo, became neutropenic and febrile again and was readmitted. During this admission, unlike the prior admission, he was not given fungal prophylaxis because it appeared that azole antifungal prophylaxis with posaconazole during the last admission had caused an unexplained increase in his liver function tests. During this admission, we have been looking hard for bacterial causes as well as fungal. A CT of the sinus showed some nonspecific sinusitis which was mild, and a CT of the chest has shown some very tiny nodules which seemed to be increasing in size. This prompted concerns about Mucor and a consult to Pulmonary, but no bronchoscopy has been done yet. CT scans on Tuesday showed that his liver and spleen appeared entirely normal, but the CT scan done today clearly shows new nodules. This overall picture is consistent with a fungal infection and it is now time to initiate empiric antifungal therapy. Whether or not such therapy should be directed only at [facility] on the assumption he has hepatosplenic candidiasis or at a broader range of pathogens to include Mucor is a bit unclear. While I feel most likely this is all Sierra, I am still a little worried about Mucor, and therefore, will use Cresemba, the new broad-spectrum azole agent instead of something more narrow such as fluconazole or micafungin. Amphotericin would not be an inappropriate choice here, but I am a bit concerned about toxicity in this elderly gentleman. RECOMMENDATIONS: 1. Repeat fungal blood cultures today. 2. Repeat Fungitell today. 3. Will start therapy with Cresemba with six loading doses today. Due to its excellent absorption and the fact all he has is peripheral IV, will go ahead and use oral Cresemba to start with in this patient. 4. I plan to discuss this case with the pulmonary attending to see if he thinks a bronch is indicated, but my overall sense is we can probably proceed with empiric therapy.
[2017-01-03] MEDS: LORazepam 1 mg Tablet PO SCH (21:29)
[2017-01-04] VITALS (7 sets, daily range): BP systolic 124–176; BP diastolic 68–75; PULSE 65–101; RESP 14–18; O2SAT 96–98
[2017-01-04] MEDS ORDERED: Acetaminophen IV 1,000 MG in IV Premix 1 EACH IV ONE ×2 (00:35→09:00)
--- NOTE | 2017-01-04 04:44 | NUR ---
Fever At about 2100 temperature was 38.2 and andrew steadily until about 0030 when it started descending without medical intervention, cool cloths applied to his head and axillary areas and PO fluids encouraged. At about 2145, he got up to use the restroom and the tele child monitor reported a heart rate of 137. It dropped back down to sinus rhythm about 45 minutes later. IV Tylenol was requested but not received until about 0100 and it was held at this time because his fever was resolving and his liver enzymes are elevated. Pt is now in SR at 64bpm.
[2017-01-04 06:55] LABS: Magnesium 1.9 mg/dL (1.6-2.6); Phosphorus 4.3 mg/dL (2.5-4.9)
[2017-01-04] MEDS: Pantoprazole 40 mg ER24 Tablet PO SCH (07:37)
[2017-01-04 08:09] LABS: Mean Corpuscular Volume 88.7 fL (81-100)
[2017-01-04 08:10] LABS: Mean Corpuscular Hemoglobin 29.6 pg (27.0-35.0); Platelet Count 26 bil/L (150-400)
[2017-01-04 08:11] LABS: BASOPHILS % (AUTO) 0 % (0-3); EOSINOPHILS % (AUTO) 0 % (0-5); MONOCYTES % (AUTO) 7.9 % (4-12); NEUTROPHILS % (AUTO) 76.7 % (40-74)
[2017-01-04] MEDS: 0.9% Sodium Chloride 250 ML IV SCH (09:00)
[2017-01-04] MEDS: Ceftaroline Inj 600 MG in Dextrose 5% 250 ML IV SCH ×2 (10:33→22:32)
--- NOTE | 2017-01-04 10:40 | PCM.PNMED ---
Subjective Date of Service January 04, 2017 Subjective pt was found to have innumerable tiny nodules in liver/spleen, embolic in lungs on CT chest, started on anti-fungal per ID had persistent breakthrough fever overnight pt is weak, poor appetite, denied pain throughout no sinus tenderness, no discharge, no cough or sputum Exam Vital Signs Vital Sign - Last Date Time Temp Pulse Resp B/P Pulse Ox O2 Delivery O2 Flow Rate FiO2 01/04/17 10:08 38.7 01/04/17 09:19 101 176/75 01/04/17 05:13 14 96 Room Air Intake and Output 01/03/17 01/03/17 01/04/17 Cumulative From/Thru 15:00 23:00 07:00 12/24/16 10:16 - 01/04/17 05:20 Intake Total 1700 ml 2000 ml 63107 ml Output Total 2100 ml 2075 ml 49684 ml Balance -400 ml -75 ml 11791 ml Intake Oral 1700 ml 2000 ml 59037 ml IV Total 27371 ml Packed Cells 1500 ml Platelets 415 ml Output Urine Total 2100 ml 2075 ml 42135 ml # Voids 7 # Bowel Movements 0 3 Exam cachetic middle-aged male, looked weak comfortably laying down on the bed no JVD, MMM, no LAD, no sinus tenderness RRR, nl s1, s2 no mrg mild insp crackles throughout S,ND,NT,normoactive BS+ warm, no edema, pulses 2/2 IVs and Medications Medications Reviewed: Medications were reviewed in detail Lab and Diagnostics Result Diagram: 01/04/17 0520 01/04/17 0520 X-Rays, CTs and MRIs PROCEDURE: X-RAY CHEST, TWO VIEWS ([id number]) INDICATIONS: Cough and fever TECHNIQUE: 2 views of the chest were acquired. COMPARISON: [facility], CT, CT CHEST WO CON, 12/28/2016, 12:29. [facility], CR, XR CHEST 1VW, 12/30/2016, 18:01. [facility], CR, XR CHEST 2VW, 12/28/2016, 9:43. FINDINGS: Surgical changes and devices: None. Lungs and pleura: There are persistent small bilateral pleural effusions. There are scattered indistinct small nodular opacities redemonstrated bilaterally, similar in appearance to the prior studies. Mediastinum: Mediastinal contours are normal. Heart size is normal. Bones and chest wall: No suspicious bony abnormalities. Soft tissues appear unremarkable. IMPRESSION: 1. Persistent small pleural effusions and scattered indistinct nodular opacities similar in appearance to the prior studies. Dictated by: Steve Brand M.D. on 01/02/2017 at 9:47 Approved by: Steve Brand M.D. on 01/02/2017 at 9:48 PROCEDURE: CT CHEST WITHOUT CONTRAST ([id number]) INDICATIONS: F/U pulm nodules-AML with fever TECHNIQUE: Noncontrast 5 mm thick sections acquired from the pulmonary apices to the posterior costophrenic angles. 7 mm thick coronal and sagittal MIP reformats were then acquired. For radiation dose reduction, the following was used: automated exposure control, adjustment of mA and/or kV according to patient size. COMPARISON: [facility], CT, CT ABD PELVIS W CON, 12/31/2016, 12:11. [facility], CT, CT CHEST WO CON, 12/28/2016, 12:29. FINDINGS: Image quality: Excellent. Lungs and pleura: Small bilateral pleural effusions with adjacent atelectasis. Scattered subcentimeter bilateral widespread pulmonary nodules, demonstrating mild surrounding groundglass. There is diffuse, mild interval increase in size and conspicuity since the prior study dated 12/28/16. For example pleural based nodules on image 27 in the left upper lobe measures 8 mm, previously 2 mm. Mediastinum: Heart size is normal. There is trace pericardial effusion. No mediastinal adenopathy by size criteria. Thoracic aorta and central pulmonary arteries are normal in size. Esophagus is normal in caliber. No hiatal hernia. Bones and chest wall: No suspicious bony lesions. No vertebral body compression fractures. No axillary or supraclavicular adenopathy by size criteria. Thyroid gland unremarkable. Abdomen: In the visualized liver, there is suggestion of innumerable hypodense ill-defined nodules at the left and right lobes, however limited evaluation in the absence of IV contrast. Of note, on the prior study dated 12/31/16 these were not present. Similar-appearing lesions are now present in the spleen IMPRESSION: Interval progression in widespread subcentimeter bilateral pulmonary nodules with surrounding groundglass attenuation suggesting an infectious or inflammatory etiology. Septic emboli in the differential. Please correlate clinically. Small bilateral pleural effusions with adjacent atelectasis appear stable to mildly decreased. Trace pericardial effusion. Ill-defined nodules within the liver and spleen which appear new since prior study. The rapid development is suggestive of infection, possibly multiple micro -abscesses, such as candidiasis in the immunocompromised setting. Findings were personally telephoned to Dr. Hackett 01/03/17 1434 hours Dictated by: Paulino Joseph M.D. on 01/03/2017 at 13:25 Approved by: Paulino Joseph M.D. on 01/03/2017 at 14:34 Assessment & Plan Acute, active #Persistent neutropenic fever, POA, Initially thought due to suspected sinusitis based on imaging and nasal erythema on presentation. Patient has no symptoms at this point localizing infection source. CT chest and abd unrevealing. CT sinus consistent with sinusitis but no symptoms or sinus tenderness.previously consulted pulmonology and no bronchoscopy indicated, lungs do not seem to be the source although CT abd 12/31, 01/[address] showed newly developed multiple lung, liver, spleen nodules, consistent to systemic fungal infection-dominique, mucor. PICC line discontinued 01/01, tip culture ngtd. serial BCX ngtd. fungal culture/Fungiteil 01/03 sent. -pt is clinically stable but fever is persistent, general condition is very poor. -follow up with ID Dr Hackett and oncology , -- Treated with meropenem 2g q8h and vancomycin for about a week /since admission. ID switched antibiotics to ceftaroline and ciprofloxacin by mouth . Given concern for systemic fungal infection, started Cresemba ( isavuconazonium) for broad coverage. -appreciate Pulmonary input for BAL or bronchoscopic bx although unlikely feasible given thrombocytopenia -defer ENT consult for sinus discharge, as pt is not symptomatic, discussed with . #chronic anemia, thrombocytopenia, neutropenia POA, -ANC stable, PLT wax and wane, no signs of active bleeding -with AML in remission, s/p consolidation chemo of 5days of idarubicin IV, cytarabine (SIMÓN-C) 12/14. s/p 2units pRBC, 2PLT 12/23 -appreciate for blood products, further management, -- per Dr. Balbuena's prev notes, "transfusions with irradiated leuko-poor blood products for hematocrit less than 25% and platelets less than 15,000.": -- Gave 2 units of PRBC 12/24.transfusion of 2PRBC and 2 platelets on 12/27 chronic, stable, resolved # Brief New onset Afib on 12/27,resolved -Patient had episode of atrial fibrillation with RVR for 2 hrs on 12/27. Resolved after Cardizem -Patient on Cardizem by mouth for hypertension. No history of atrial fibrillation -TSH WNL # AML -Dr Balbuena following # Fluid overload, resolved -Patient had 6 kg weight gain since admission. Diuresed with IV Lasix. Responded well. Discontinue Lasix # hypertension, continue patient's home medication Cardizem # insomnia chronic, At bedtime melatonin, Ativan PO when necessary home med Prophylaxis:We will hold off heparin or enoxaparin, his counts are too low he does not need it. dispo: pending, overall prognosis could be very poor with this ongoing infection. emotional/spiritual support encouraged diet:general diet dvt ppx:HSQ Full code VTE Prophylaxis: Other (not indicated, platelets too low) VTE Mechanical Devices: Intermittant Pneumatic CD Resuscitation Status: CPR: Attempt Resuscitation Time spent 35min Eben Lucio MD January 04, 2017 10:40
--- NOTE | 2017-01-04 11:54 | PROG NOTE ---
[address] [address] PROGRESS NOTE PATIENT: EJFF AMEZCUA : 1945 MR#: [id number] ADMIT: 12/24/2016 JOB ID: [id number] DATE: 01/04/2017 SUBJECTIVE: The patient is a 71-year-old gentleman with acute myelogenous leukemia in remission. He remains hospitalized with febrile neutropenia following consolidation chemotherapy with leonor-C plus idarubicin. He again had extensive shaking chills and fevers overnight. His maximum temperature hit a high of 39.3 degrees centigrade last evening, which ultimately responded to Tylenol. Additional blood cultures, including fungal cultures, are pending. His fungal antibody studies, cryptococcus antigen, and galactomannan testing have been negative to date. CT imaging of his chest yesterday showed ill-defined nodules within the liver and spleen which are new, as well as progression of widespread bilateral pulmonary nodules. Dr. Hackett, in conversations with Radiology, thought that findings were quite consistent with [facility]. OBJECTIVE: Vitals: T-max 39.3, P 72, R 14, BP 133/72. HEENT: Conjunctivae pale. Mucous membranes moist. No oral lesions. Nodes: No adenopathy in the neck or axilla. Chest: Basilar crackles. Cardiac exam: Tachycardic but regular with normal S1, S2. Abdomen: Soft, nontender. Normoactive bowel tones. Extremities: Trace pedal edema. 2+ distal pulses. No calf tenderness. LABORATORIES: WBC 2.5 with 77% neutrophils and 14% lymphocytes, hemoglobin 9.2, hematocrit 27.6%, platelets 26,000. Sodium 135, potassium 3.5, BUN 11, creatinine 0.63, glucose 124. AST 25, ALT 52, alkaline phosphatase 172. Total protein 5.4, albumin 2.9. ASSESSMENT AND PLAN: Acute myelogenous leukemia, status post induction, re-induction, and consolidation chemotherapy with leonor-C and idarubicin. No indication for transfusion support today. The patient has had prolonged immunosuppression. Imaging has shown bilateral pulmonary nodules, which have not been fully evaluated. He now has additional new nodules in his liver and spleen. Agree that antifungal coverage is important. He has been started on isavuconazonium (Cresemba), but it should be noted that clinical trials showed that this agent failed compared to caspofungin in the ACTIVE trial. However, it does have excellent coverage for Aspergillus and mucor, for which it is FDA approved. Strongly recommend diagnostic studies to clarify the underlying infectious process. If this cannot be achieved locally, recommend referral to a university setting. Continue additional supportive care.
[2017-01-04] MEDS: Diltiazem CD 120 mg ER24 Capsule PO SCH (12:33)
[2017-01-04 13:12] LABS: Cryptococcal Ag Negative (Negative)
--- NOTE | 2017-01-04 16:15 | NUR ---
NUTRITION FOLLOW-UP: ASSESS: 71 YO male admitted with recurrent neutropenic fevers s/p consolidative chemo. Pt PO intake has been 75-100% of meals. Pt wt was increased on admit likely due to fluid overload, but is now back close to where pt was during his October 2016 admission. PMHX: AML, HTN, Diverticulitis LABS:Reviewed. Cr 0.63, Glu 124, ALT 52, Alk Phos 172,Alb 2.9. MEDS: Reviewed. GI: BM x 1 (01/01) CURRENT WTS: 75.6 kg. Wt appears stable as pt discharge wt was 71.4 on 11/23/16 and fluid overload is resolving per MD notes. DIET: General. PO intake 75-100% of most meals. EST. NEEDS: Wt gain. Kcals: 9100-2717 kcals/day (30-35 kcal/kg Current BW) Pro: 115-150 g/day (1.5-2.0 g/kg current BW) NUTRITION DIAGNOSIS: 1) Increased nutrient needs related to increased demand for nutrients as evidence by wt loss reported on prior admit. NUTRITION INTERVENTION: 1) Will add supplements to all trays to encourage wt maintenance/wt gain. MONITOR / EVAL: PO intake, labs, weights, and nutrition status. Will continue to monitor per low nutrition risk guidelines.
[2017-01-04] MEDS: Mupirocin 2% 22 Gm Ointment NASAL SCH ×2 (16:38→21:45)
--- NOTE | 2017-01-04 16:38 | PROG NOTE ---
[address] [address] PROGRESS NOTE PATIENT: JEFF AMEZCUA : 1945 MR#: [id number] ADMIT: 12/24/2016 JOB ID: [id number] DATE: 01/04/2017 REASON FOR FOLLOWUP: Febrile neutropenia, now with recovery of white cells, and persistent fevers, as well as nodules in the lungs as well as in the liver and spleen. INTERVAL HISTORY: Overnight, the patient has had significant fevers which were especially severe last night and had more fever spikes this morning, though they are of less severity in terms of the fever and chills. In between these paroxysms of fever and chills, he has felt quite well and today feels a bit stronger. He denies any significant cough or shortness of breath. No chest pain. He does not have any abdominal pain either nor does he have diarrhea or skin rash. PHYSICAL EXAMINATION: Reveals a gentleman febrile when last measured 38.7, pulse 73, respiratory rate 14, blood pressure 176/75. He is saturating well on room air and in no acute distress. Examination of the eyes without conjunctivitis. Oral cavity is basically negative. Lungs quite clear to auscultation. Cardiac tones: Regular rate and rhythm. Peripheral IV without evidence of infection at this point. Abdomen without significant tenderness or hepatosplenomegaly. No skin rash. LABORATORIES: Include a white count which has reached 2500, 76% segs now so a total neutrophil count of greater than 1500. His hematocrit stable at about 28. Platelets stuck in the mid 20s at this point. His creatinine 0.63. LFTs, really little change with a mild cholestatic hepatitis. Alk phos 172. ALT is 52. Albumin 2.9. Fungitells are pending from December 31 and January 03. Many fungal blood cultures are negative. The only positive culture from this admission has been a culture of the nose for MRSA which we have been treating. The most recent chest CT was done yesterday. It shows interval progression and widespread small bilateral pulmonary nodules. The radiologist considered septic emboli in the differential diagnosis here. They also noted of course the new nodules and liver and spleen consistent with hepatosplenic candidiasis. IMPRESSION: I have reviewed and discussed this case with Drs. Barr and Naveed and have placed a call to Dr. Balbuena and reviewed his note carefully. It is my opinion that, at this point, the patient has very clear-cut hepatosplenic candidiasis. This can be treated with either fluconazole, an echinocandin like micafungin, or amphotericin, usually with good results. The bigger issue here I think is the nature of the pulmonary nodules. While pulmonary nodules can occasionally be seen in the setting of hepatosplenic candidiasis. Those nodules were visible quite awhile before the ones in the liver and spleen and I am concerned that they may represent some other process which may be fungal. It seems highly unlikely that these are any sort of bacterial process given the long and aggressive courses of antibacterial agents he has received. It is possible I suppose that these represent some allergic or hematologic phenomena, but I suspect they are fungal. I have chosen Cresemba because it has good in vitro activity against Sierra, and also is the only azole which possesses activity against Mucor species. Recall that this patient's Fungitells are consistently negative at least up to this point, which could be consistent with a Mucor type process. I was hoping to provide broad-spectrum antifungal coverage for Sierra as well as Mucor and Aspergillus that would not have the toxicity of amphotericin which would be the alternative in this case. There is a small study which shows that potentially echinocandins are superior to Cresemba in terms of treatment of invasive Sierra infections, and indeed, there are similar studies comparing other azoles to echinocandins, but in this case, I thought it was useful to try and pick an agent which would cover both of these possibilities. There is considerable data about possible synergy between echinocandins and azoles, at least in vitro in the literature, and I think it is probably reasonable to consider adding an echinocandin to the Cresemba as a dual threat against potential Sierra and/or Aspergillus infections. Echinocandins will be of no value if in fact this is Mucor fusarium or some other mold present in his lungs. This case was discussed extensively with Dr. Barr. He feels that a BAL could be done with some platelet transfusions but would be unlikely to yield a diagnosis. Much more likely to yield a diagnosis of course would be some sort of a lung biopsy, obtaining one or more of these nodules but this would be of greater risk to the patient. RECOMMENDATIONS: 1. Will add micafungin to the Cresemba. 2. Will continue to closely monitor this patient and especially his fever curve. 3. I have placed a call to Dr. Balbuena to discuss this case.
[2017-01-04] MEDS: Micafungin Inj 150 MG in 0.9% Sodium Chloride 100 ML IV SCH (17:22)
--- NOTE | 2017-01-04 18:10 | NUR ---
Febrile Patient febrile this am , patient was lying in bed with shaking chills. Tylenol given which help significantly and blood cultures drawn. Patient with poor appetite and energy level very low. Patient unable to take morning meds all at once so spread out through out the day . Patient started on new antifungal meds. Addendum: 01/04/17 at 1845 by FILIBERTO WILSON RN Called to room patient again with shaking chills and temp noted to be rising . Tylenol started .
[2017-01-04] MEDS: Acetaminophen IV 1,000 MG in IV Premix 1 EACH IV PRN (18:38)
[2017-01-04] MEDS: Omega-3 Fatty Acids 1,000 mg Capsule PO SCH (18:40)
--- NOTE | 2017-01-04 20:59 | NUR ---
Fever/ Appetite P: Patient had a temperature of 103 I: Patient was given IV tylenol per primary nurse E: Patients temp had been slowly decreasing, reevaluated and it was down to 101.9 S: Patients bed in lowest position, side rails up, call light within reach. Patient encouraged to call when help is needed
[2017-01-04] MEDS: LORazepam 1 mg Tablet PO SCH (21:45)
[2017-01-05] VITALS (7 sets, daily range): BP systolic 122–163; BP diastolic 67–77; PULSE 72–85; RESP 16–18; O2SAT 95–97
[2017-01-05] MEDS: Acetaminophen IV 1,000 MG in IV Premix 1 EACH IV PRN (04:28)
--- NOTE | 2017-01-05 04:44 | NUR ---
fever per report pt had a temp of 39.4 Celsius around 1800 last night night. temp was retaken at 1920 at start of car shifter and it was 38.8. at that time pt still appeared to look like he felt poorly, he answered minimal questions for the nurse. his however said that he had stopped shivering and seemed like he was "getting back to himself". patient temp continued to decline and gradually pt became more responsive until he was up walking around independent in the room saying he felt relatively well. this AM pt again has a temp of 38.4. he is shivering but otherwise talking coherently and has been given tylenol. will monitor for effectiveness. Addendum: 01/05/17 at 0710 by SONY STEVENS RN pt temp is down to 38.0 celsius at this time. he says the tylenol kicked in quickly and he is feeling better, chills have decreased.
[2017-01-05] MEDS: Pantoprazole 40 mg ER24 Tablet PO SCH (06:22)
[2017-01-05 07:08] LABS: BASOPHILS % (AUTO) 0 % (0-3); EOSINOPHILS % (AUTO) 0 % (0-5); Mean Corpuscular Hemoglobin 29.5 pg (27.0-35.0); Mean Corpuscular Volume 88.5 fL (81-100)
[2017-01-05 07:36] LABS: Magnesium 1.7 mg/dL (1.6-2.6)
[2017-01-05] MEDS: Mupirocin 2% 22 Gm Ointment NASAL SCH ×2 (07:55→20:35)
[2017-01-05] MEDS: Diltiazem CD 120 mg ER24 Capsule PO SCH (07:57)
[2017-01-05] MEDS: Omega-3 Fatty Acids 1,000 mg Capsule PO SCH (07:58)
[2017-01-05] MEDS: 0.9% Sodium Chloride 250 ML IV SCH (08:01)
[2017-01-05 08:05] LABS: Platelet Count 23 bil/L (150-400)
[2017-01-05 08:21] LABS: MONOCYTES % (AUTO) 11 % (4-12); NEUTROPHILS % (AUTO) 76 % (40-74)
--- NOTE | 2017-01-05 11:10 | PCM.PNMED ---
Subjective Date of Service January 05, 2017 Subjective still has persistent fever, no other associated sx denied abdominal pain, SOB, sore throat labs unremarkable. Exam Vital Signs Vital Sign - Last Date Time Temp Pulse Resp B/P Pulse Ox O2 Delivery O2 Flow Rate FiO2 01/05/17 10:11 83 01/05/17 09:45 37.3 17 122/67 96 Room Air Intake and Output 01/04/17 01/04/17 01/05/17 Cumulative From/Thru 15:00 23:00 07:00 12/24/16 10:16 - 01/05/17 03:21 Intake Total 407 ml 900 ml 494 ml 94590 ml Output Total 700 ml 74495 ml Balance 407 ml 200 ml 494 ml 18933 ml Intake Oral 900 ml 79072 ml IV Total 407 ml 494 ml 54277 ml Packed Cells 1500 ml Platelets 415 ml Output Urine Total 700 ml 66439 ml # Voids 7 # Bowel Movements 3 Exam cachetic middle-aged male, looked weak comfortably laying down on the bed no JVD, MMM, no LAD, no sinus tenderness RRR, nl s1, s2 no mrg mild insp crackles throughout S,ND,NT,normoactive BS+ warm, no edema, pulses 2/2 IVs and Medications Medications Reviewed: Medications were reviewed in detail Lab and Diagnostics Result Diagram: 01/05/1761601/05/17616 X-Rays, CTs and MRIs PROCEDURE: X-RAY CHEST, TWO VIEWS ([id number]) INDICATIONS: Cough and fever TECHNIQUE: 2 views of the chest were acquired. COMPARISON: [facility], CT, CT CHEST WO CON, 12/28/2016, 12:29. [facility], CR, XR CHEST 1VW, 12/30/2016, 18:01. [facility], CR, XR CHEST 2VW, 12/28/2016, 9:43. FINDINGS: Surgical changes and devices: None. Lungs and pleura: There are persistent small bilateral pleural effusions. There are scattered indistinct small nodular opacities redemonstrated bilaterally, similar in appearance to the prior studies. Mediastinum: Mediastinal contours are normal. Heart size is normal. Bones and chest wall: No suspicious bony abnormalities. Soft tissues appear unremarkable. IMPRESSION: 1. Persistent small pleural effusions and scattered indistinct nodular opacities similar in appearance to the prior studies. Dictated by: Steve Brand M.D. on 01/02/2017 at 9:47 Approved by: Steve Brand M.D. on 01/02/2017 at 9:48 PROCEDURE: CT CHEST WITHOUT CONTRAST ([id number]) INDICATIONS: F/U pulm nodules-AML with fever TECHNIQUE: Noncontrast 5 mm thick sections acquired from the pulmonary apices to the posterior costophrenic angles. 7 mm thick coronal and sagittal MIP reformats were then acquired. For radiation dose reduction, the following was used: automated exposure control, adjustment of mA and/or kV according to patient size. COMPARISON: [facility], CT, CT ABD PELVIS W CON, 12/31/2016, 12:11. [facility], CT, CT CHEST WO CON, 12/28/2016, 12:29. FINDINGS: Image quality: Excellent. Lungs and pleura: Small bilateral pleural effusions with adjacent atelectasis. Scattered subcentimeter bilateral widespread pulmonary nodules, demonstrating mild surrounding groundglass. There is diffuse, mild interval increase in size and conspicuity since the prior study dated 12/28/16. For example pleural based nodules on image 27 in the left upper lobe measures 8 mm, previously 2 mm. Mediastinum: Heart size is normal. There is trace pericardial effusion. No mediastinal adenopathy by size criteria. Thoracic aorta and central pulmonary arteries are normal in size. Esophagus is normal in caliber. No hiatal hernia. Bones and chest wall: No suspicious bony lesions. No vertebral body compression fractures. No axillary or supraclavicular adenopathy by size criteria. Thyroid gland unremarkable. Abdomen: In the visualized liver, there is suggestion of innumerable hypodense ill-defined nodules at the left and right lobes, however limited evaluation in the absence of IV contrast. Of note, on the prior study dated 12/31/16 these were not present. Similar-appearing lesions are now present in the spleen IMPRESSION: Interval progression in widespread subcentimeter bilateral pulmonary nodules with surrounding groundglass attenuation suggesting an infectious or inflammatory etiology. Septic emboli in the differential. Please correlate clinically. Small bilateral pleural effusions with adjacent atelectasis appear stable to mildly decreased. Trace pericardial effusion. Ill-defined nodules within the liver and spleen which appear new since prior study. The rapid development is suggestive of infection, possibly multiple micro -abscesses, such as candidiasis in the immunocompromised setting. Findings were personally telephoned to Dr. Hackett 01/03/17 1434 hours Dictated by: Paulino Joseph M.D. on 01/03/2017 at 13:25 Approved by: Paulino Joseph M.D. on 01/03/2017 at 14:34 Assessment & Plan Acute, active #Persistent neutropenic fever, POA, Initially thought due to suspected sinusitis based on imaging and nasal erythema on presentation. Patient has no symptoms at this point localizing infection source. CT chest and abd unrevealing. CT sinus consistent with sinusitis but no symptoms or sinus tenderness.previously consulted pulmonology and no bronchoscopy indicated, lungs do not seem to be the source although CT abd 12/31, 01/[address] showed newly developed multiple lung, liver, spleen nodules, consistent to systemic fungal infection-dominique, mucor. PICC line discontinued 01/01, tip culture ngtd. serial BCX ngtd. fungal culture/Fungiteil 01/03 sent. -pt is clinically stable but fever is persistent, general condition is very poor. -follow up with ID Dr Hackett and oncology , -- Treated with meropenem 2g q8h and vancomycin for about a week /since admission. ID switched antibiotics to ceftaroline and ciprofloxacin by mouth . Given concern for systemic fungal infection, started Cresemba ( isavuconazonium) for broad coverage, added micafungin -appreciate Pulmonary input for BAL or bronchoscopic bx although unlikely feasible given thrombocytopenia -defer ENT consult for sinus discharge, as pt is not symptomatic, discussed with . #chronic anemia, thrombocytopenia, neutropenia POA, -ANC stable, PLT wax and wane, no signs of active bleeding -with AML in remission, s/p consolidation chemo of 5days of idarubicin IV, cytarabine (SIMÓN-C) 12/14. s/p 2units pRBC, 2PLT 12/23 -appreciate for blood products, further management, -- per Dr. Balbuena's prev notes, "transfusions with irradiated leuko-poor blood products for hematocrit less than 25% and platelets less than 15,000.": -- Gave 2 units of PRBC 5/5.transfusion of 2PRBC and 2 platelets on 12/27 chronic, stable, resolved # Brief New onset Afib on 12/27,resolved -Patient had episode of atrial fibrillation with RVR for 2 hrs on 12/27. Resolved after Cardizem -Patient on Cardizem by mouth for hypertension. No history of atrial fibrillation -TSH WNL # AML -Dr Balbuena following # Fluid overload, resolved -Patient had 6 kg weight gain since admission. Diuresed with IV Lasix. Responded well. Discontinue Lasix # hypertension, continue patient's home medication Cardizem # insomnia chronic, At bedtime melatonin, Ativan PO when necessary home med Prophylaxis:We will hold off heparin or enoxaparin, his counts are too low he does not need it. dispo: pending, overall prognosis could be very poor with this ongoing infection. emotional/spiritual support encouraged diet:general diet dvt ppx:HSQ Full code VTE Prophylaxis: Other (not indicated, platelets too low) VTE Mechanical Devices: Intermittant Pneumatic CD Resuscitation Status: CPR: Attempt Resuscitation Time spent 35min Eben Lucio MD January 05, 2017 11:10
[2017-01-05] MEDS: Ceftaroline Inj 600 MG in Dextrose 5% 250 ML IV SCH ×2 (11:15→22:37)
--- NOTE | 2017-01-05 11:37 | PROG NOTE ---
[address] [address] PROGRESS NOTE PATIENT: JEFF AMEZCUA : 1945 MR#: [id number] ADMIT: 12/24/2016 JOB ID: [id number] DATE: 01/05/2017 INFECTIOUS DISEASE FOLLOWUP NOTE: REASON FOR FOLLOWUP: Probable hepatosplenic candidiasis with pulmonary nodules in a patient with recovering bone marrow following consolidative treatment for AML. INTERVAL HISTORY: Overnight, the patient noted more fevers, chills and malaise but seemed to be less severe than it was in prior days. This morning he has no fever or chills at the time we interviewed him, though he had just earlier this morning. He is feeling still tired and washed out but without much in the way of focal complaint. No significant headache. No sore throat. No cough at all unless during these paroxysms of fever when he developed some mild dry cough. No nausea, vomiting, diarrhea, or dysuria. PHYSICAL EXAMINATION: Reveals a somewhat fatigued gentleman. His current temperature is 37.3. This morning it was 38.4, and last night he was as high as 38.8. This is somewhat better than in prior days but not dramatically so. Pulse currently 72, respiratory rate 17, blood pressure 102/67, saturating well on room air. Mental status is clear. Eyes without conjunctivitis. Oral cavity without change. Lungs clear. Cardiac tones: Regular rate and rhythm without new murmur. Abdomen benign. No skin rash noted. I think we are using peripheral IVs in this patient, as his central line was pulled recently. LABORATORIES: Include white count 2100 with 76% segs which is relatively stable. Platelets 23. Hematocrit 26. Creatinine 0.64. LFT are normal today. Procalcitonin 1.45, which has increased considerably from a value a week ago for no clear reason. Urinalysis without pyuria. Fungitell from December 31 and Fungitell from January 03 still pending. Micro studies include literally more than a dozen blood cultures drawn during this admission, some routine, some fungal blood cultures, and all negative. The cath tip remains negative which was pulled back on the , and that was a PICC line. Our only positive culture the whole admission is a MRSA PCR of the nose when he had nasal vestibulitis. Our most recent study was a chest CT which showed an increase in the small pulmonary nodules back on the . IMPRESSION: This remains a mysterious case. It would appear that the patient has a classic case of hepatosplenic candidiasis with the problem being that he has pulmonary nodules as well which is rarely reported as part of the hepatosplenic candidiasis syndrome. This raises the possibility of a second perhaps fungal process in the lungs, though we have no proof of that at this point. I have discussed this case extensively with Dr. Balbuena and Dr. Barr in the past [address] Balbuena is of the opinion we should obtain a bronchoalveolar lavage in the hopes of obtaining a fungal or other culture that would explain the pulmonary nodules. Dr. Barr thinks, in view of the low platelets and probable low yield of a bronchoalveolar lavage, we should wait, and I will be speaking to both of them again today about this situation. In the meantime, we are treating the patient with Cresemba, which has pretty good activity against dominique and reasonable activity against mucor, and micafungin, which is strictly a drug for dominique and aspergillus. I anticipate that this dual and hopefully synergistic or at least additive antifungal combination will produce an elimination of the fever within the next 24-48 hours which would tell us we are on the right track. The increasing procalcitonin is somewhat confusing in this no longer neutropenic patient and, of course, brings up the possibility that he has an ongoing bacterial infection, perhaps in his lungs, but will need to closely observe before making any conclusion about that. RECOMMENDATIONS: 1. Will continue with ceftaroline to finish a 14-day course. 2. Continue with Cresemba loading dose, which will end today and then go to maintenance on the Cresemba. 3. Continue with micafungin. 4. Will discuss this case with Dr. Barr.
--- NOTE | 2017-01-05 14:27 | PROG NOTE ---
[address] [address] PROGRESS NOTE PATIENT: JEFF AMEZCUA : 1945 MR#: [id number] ADMIT: 12/24/2016 JOB ID: [id number] DATE: 01/05/2017 SUBJECTIVE: This patient is a 71-year-old gentleman with acute myelogenous leukemia in remission. He is hospitalized with febrile neutropenia following consolidation chemotherapy with leonor-C plus idarubicin. He continues to have shaking chills and high fevers. His anti-infectious regimen has been expanded to include micafungin 150 mg IV daily, and ceftaroline 600 mg IV every 12 hours. OBJECTIVE: Vitals: T-max 38.8, P 85, R 17, BP 129/67. O2 saturation 97% on room air. HEENT: Conjunctivae slightly pale. Chest: Bibasilar crackles. Cardiac exam: Tachycardic but regular. Abdomen: Soft and nontender. Extremities: Trace pedal edema. 1+ distal pulses. LABORATORY DATA: WBC 2.1 with 76% neutrophils, 10% lymphocytes, hemoglobin 8.5, hematocrit 25.5%, platelets 23,000. Sodium 131, potassium 3.1, BUN 11, creatinine 0.61, glucose 141. ASSESSMENT AND PLAN: Acute myelogenous leukemia, status post induction, re-induction, and consolidation chemotherapy with leonor-C and idarubicin: No definite indication for transfusion support today. The patient has had prolonged immunosuppression. Agree with anti-infective regimen as prescribed by Dr. Hackett. I would continue to support additional evaluation up to and including bronchoscopy, as definitive cultures could help to guide ongoing therapy. Continue to monitor carefully.
--- NOTE | 2017-01-05 14:52 | NUR ---
Social Work: Continued Discharge Planning D: EMR reviewed. Pt on day 12 of hospitalization. SW confirmed in multi-discplinary rounds that ENT is not able to do Bronc on pt. Pt's oncologists recommends pt transfer to [place] for when Bronc can be preformed. SW will continue to follow. A: Pt who is independent at baseline. P: Pt to transport home with via POV at discharge. Pt will potentially transfer to [place] for Bronc. SW will continue to follow. JAZMIN Carr
[2017-01-05] MEDS: Micafungin Inj 150 MG in 0.9% Sodium Chloride 100 ML IV SCH (16:34)
--- NOTE | 2017-01-05 18:26 | NUR ---
Activity Pt w/ decreased activity this shift. Encouraged to ambulate x2, only out in hallways x1. Pt feels tired and lethargic. Pt encouraged to use IS and to ambulate in between naps. Bed is down and locked, call light w/in reach.
[2017-01-05] MEDS: LORazepam 1 mg Tablet PO SCH (20:35)
[2017-01-06] VITALS (8 sets, daily range): BP systolic 124–197; BP diastolic 62–88; PULSE 62–109; RESP 14–19; O2SAT 92–98
[2017-01-06 06:19] LABS: BASOPHILS % (AUTO) 0 % (0-3); EOSINOPHILS % (AUTO) 0 % (0-5); Mean Corpuscular Hemoglobin 30.9 pg (27.0-35.0); Mean Corpuscular Volume 88.4 fL (81-100)
[2017-01-06 06:21] LABS: Platelet Count 30 bil/L (150-400)
[2017-01-06] MEDS: Pantoprazole 40 mg ER24 Tablet PO SCH (06:21)
--- NOTE | 2017-01-06 07:37 | NUR ---
fever pt spiked a fever of 102.6 F this morning around 0430. he was given his scheduled tylenol. upon reassessment his temp was 101.2. chills reduced. pt says he feels "awful and very tired" this morning. pt has not been out of bed as often as usual due to fatigue. nurse has encouraged ambulation and use of his IS which is at bedside. care continues.
[2017-01-06 07:40] LABS: MONOCYTES % (AUTO) 9 % (4-12); NEUTROPHILS % (AUTO) 78 % (40-74)
--- NOTE | 2017-01-06 08:46 | PROG NOTE ---
[address] [address] PROGRESS NOTE PATIENT: JEFF AMEZCUA : 1945 MR#: [id number] ADMIT: 12/24/2016 JOB ID: [id number] DATE: 01/06/2017 SUBJECTIVE: The patient is a 71-year-old gentleman with acute myelogenous leukemia in remission. He is hospitalized with febrile neutropenia following consolidation chemotherapy with SIMÓN-C plus idarubicin. He remains on micafungin 150 mg IV daily and ceftaroline 600 mg IV every 12 hours. He had additional shaking chills overnight and high fevers. He has not had any positive blood cultures during this hospitalization, but did have a MRSA from a nasal culture. No bleeding or bruising. Feeling depressed. OBJECTIVE: Vitals: T-max 39.2, P 109, R 19, BP 197/88. O2 saturation 92% on room air. HEENT: Conjunctivae slightly pale. Mucous membranes moist. Chest: Rare crackles. Cardiac exam: Regular rate and rhythm with normal S1, S2. Abdomen soft, nontender. Normoactive bowel tones. Extremities trace pedal edema, 1+ distal pulses. No calf tenderness. LABORATORIES: WBC 2.9 with 78% neutrophils, 9% lymphocytes, hemoglobin 9.6, hematocrit 27.5%, platelets 30,000. Sodium 134, potassium 3.6, BUN 11, creatinine 0.68, glucose 116. AST 20, ALT 41, alkaline phosphatase 168. Chest [id number]. ASSESSMENT AND PLAN: Acute myelogenous leukemia status post induction, re-induction, and consolidation chemotherapy with Simón-C and idarubicin. No indication for transfusion support today. Continue antibiotic/antifungal coverage per Dr. Hackett. Dr. Barr will reportedly determine whether or not to proceed with bronchoscopy based on the patient's chest film which was done earlier today. I spoke briefly with the patient about the bronchoscopy procedure, and he "does not want to know what happens." As for his depression, I prescribed paroxetine (Paxil) 20 mg by mouth daily. Continue to monitor. MTDD
--- NOTE | 2017-01-06 08:58 | DRSVH ---
PROCEDURE: X-RAY CHEST ONE VIEW, PORTABLE ([id number]) INDICATIONS: persistent fever TECHNIQUE: One view of the chest was acquired. COMPARISON: [facility], CR, XR CHEST 1VW, 12/30/2016, 18:01. [facility], CT, CT CHEST WO CON, 01/03/2017, 12:53. FINDINGS: Surgical changes and devices: None. Lungs and pleura: Small bilateral pulmonary nodular densities present seen better on prior CT scan. Pleural effusions have decreased compared to prior examination there is persistent mild airspace opac ity at the lung bases. No pneumothorax. Mediastinum: Mediastinal contours appear normal. Heart size is normal. Bones and chest wall: No suspicious bony lesions. Overlying soft tissues appear unremarkable. IMPRESSION: 1. Widespread bilateral pulmonary nodular densities redemonstrated which are seen better on prior CT scan. 2. Decreasing pleural effusions and persistent basilar opacities consistent with compressive atelecta sis versus pneumonia. Dictated by: Jeffrey SINCLAIR Interpreted: Fernanda Gaines MD on 01/06/2017 at 8:55 Transcribed by: MAVIS on 01/06/2017 at 8:57 Approved by: Fernanda Gaines M.D. on 01/07/2017 at 9:07
[2017-01-06] MEDS: Ceftaroline Inj 600 MG in Dextrose 5% 250 ML IV SCH (09:48)
[2017-01-06] MEDS: Omega-3 Fatty Acids 1,000 mg Capsule PO SCH (09:50)
[2017-01-06] MEDS: Diltiazem CD 120 mg ER24 Capsule PO SCH (09:50)
[2017-01-06] MEDS: Mupirocin 2% 22 Gm Ointment NASAL SCH ×2 (09:50→20:52)
[2017-01-06] MEDS: PARoxetine 20 mg Tablet PO SCH (09:51)
[2017-01-06] MEDS: 0.9% Sodium Chloride 250 ML IV SCH (09:58)
--- NOTE | 2017-01-06 11:09 | PCM.PNMED ---
Subjective Date of Service January 06, 2017 Subjective had persistent high fever 39.2 CXR repeated this AM showed multiple nodules, but decreasing effusion on Left side O2 requirement not changed pt denied SOB, cough, as per , pt looked more alert compared to yesterday pt felt more stronger Exam Vital Signs Vital Sign - Last Date Time Temp Pulse Resp B/P Pulse Ox O2 Delivery O2 Flow Rate FiO2 01/06/17 10:15 36.8 75 16 124/75 98 Room Air Intake and Output 01/05/17 01/05/17 01/06/17 Cumulative From/Thru 15:00 23:00 07:00 12/24/16 10:16 - 01/06/17 05:37 Intake Total 1750 ml 1860 ml 1600 ml 19455 ml Output Total 1925 ml 1450 ml 2250 ml 82960 ml Balance -175 ml 410 ml -650 ml 47613 ml Intake Oral 1750 ml 1400 ml 1600 ml 80195 ml IV Total 460 ml 07875 ml Packed Cells 1500 ml Platelets 415 ml Output Urine Total 1925 ml 1450 ml 2250 ml 33101 ml # Voids 6 13 # Bowel Movements 0 0 0 3 Exam cachetic middle-aged male, looked weak comfortably laying down on the bed no JVD, MMM, no LAD, no sinus tenderness RRR, nl s1, s2 no mrg mild insp crackles throughout S,ND,NT,normoactive BS+ warm, no edema, pulses 2/2 IVs and Medications Medications Reviewed: Medications were reviewed in detail Lab and Diagnostics Result Diagram: 01/06/1752101/06/17521 X-Rays, CTs and MRIs PROCEDURE: X-RAY CHEST, TWO VIEWS ([id number]) INDICATIONS: Cough and fever TECHNIQUE: 2 views of the chest were acquired. COMPARISON: [facility], CT, CT CHEST WO CON, 12/28/2016, 12:29. [facility], CR, XR CHEST 1VW, 12/30/2016, 18:01. [facility], CR, XR CHEST 2VW, 12/28/2016, 9:43. FINDINGS: Surgical changes and devices: None. Lungs and pleura: There are persistent small bilateral pleural effusions. There are scattered indistinct small nodular opacities redemonstrated bilaterally, similar in appearance to the prior studies. Mediastinum: Mediastinal contours are normal. Heart size is normal. Bones and chest wall: No suspicious bony abnormalities. Soft tissues appear unremarkable. IMPRESSION: 1. Persistent small pleural effusions and scattered indistinct nodular opacities similar in appearance to the prior studies. Dictated by: Steve Brand M.D. on 01/02/2017 at 9:47 Approved by: Steve Brand M.D. on 01/02/2017 at 9:48 PROCEDURE: CT CHEST WITHOUT CONTRAST ([id number]) INDICATIONS: F/U pulm nodules-AML with fever TECHNIQUE: Noncontrast 5 mm thick sections acquired from the pulmonary apices to the posterior costophrenic angles. 7 mm thick coronal and sagittal MIP reformats were then acquired. For radiation dose reduction, the following was used: automated exposure control, adjustment of mA and/or kV according to patient size. COMPARISON: [facility], CT, CT ABD PELVIS W CON, 12/31/2016, 12:11. [facility], CT, CT CHEST WO CON, 12/28/2016, 12:29. FINDINGS: Image quality: Excellent. Lungs and pleura: Small bilateral pleural effusions with adjacent atelectasis. Scattered subcentimeter bilateral widespread pulmonary nodules, demonstrating mild surrounding groundglass. There is diffuse, mild interval increase in size and conspicuity since the prior study dated 12/28/16. For example pleural based nodules on image 27 in the left upper lobe measures 8 mm, previously 2 mm. Mediastinum: Heart size is normal. There is trace pericardial effusion. No mediastinal adenopathy by size criteria. Thoracic aorta and central pulmonary arteries are normal in size. Esophagus is normal in caliber. No hiatal hernia. Bones and chest wall: No suspicious bony lesions. No vertebral body compression fractures. No axillary or supraclavicular adenopathy by size criteria. Thyroid gland unremarkable. Abdomen: In the visualized liver, there is suggestion of innumerable hypodense ill-defined nodules at the left and right lobes, however limited evaluation in the absence of IV contrast. Of note, on the prior study dated 12/31/16 these were not present. Similar-appearing lesions are now present in the spleen IMPRESSION: Interval progression in widespread subcentimeter bilateral pulmonary nodules with surrounding groundglass attenuation suggesting an infectious or inflammatory etiology. Septic emboli in the differential. Please correlate clinically. Small bilateral pleural effusions with adjacent atelectasis appear stable to mildly decreased. Trace pericardial effusion. Ill-defined nodules within the liver and spleen which appear new since prior study. The rapid development is suggestive of infection, possibly multiple micro -abscesses, such as candidiasis in the immunocompromised setting. Findings were personally telephoned to Dr. Hackett 01/03/17 1434 hours Dictated by: Paulino Joseph M.D. on 01/03/2017 at 13:25 Approved by: Paulino Joseph M.D. on 01/03/2017 at 14:34 Assessment & Plan Acute, active #Persistent neutropenic fever, POA, Initially thought due to suspected sinusitis based on imaging and nasal erythema on presentation. Patient has no symptoms at this point localizing infection source. CT chest and abd unrevealing. CT sinus consistent with sinusitis but no symptoms or sinus tenderness.previously consulted pulmonology and no bronchoscopy indicated, lungs do not seem to be the source although CT abd 12/31, 01/[address] showed newly developed multiple lung, liver, spleen nodules, consistent to systemic fungal infection-dominique, mucor. PICC line discontinued 01/01, tip culture ngtd. serial BCX ngtd. fungal culture/Fungiteil 01/03 sent. -pt is clinically stable but fever is persistent, general condition slightly better, labs are in right trends as ANC/PLT also increasing, PCT down. -follow up with ID Dr Hackett and oncology , -- Treated with meropenem 2g q8h and vancomycin for about a week /since admission. ID switched antibiotics to ceftaroline and ciprofloxacin by mouth . Given concern for systemic fungal infection, started Cresemba ( isavuconazonium) for broad coverage, added micafungin -appreciate Pulmonary input for BAL or bronchoscopic bx although unlikely feasible given thrombocytopenia -defer ENT consult for sinus discharge, as pt is not symptomatic, discussed with . #chronic anemia, thrombocytopenia, neutropenia POA, -ANC/PLT improving, no signs of active bleeding -with AML in remission, s/p consolidation chemo of 5days of idarubicin IV, cytarabine (SIMÓN-C) 12/14. s/p 2units pRBC, 2PLT 12/23 -appreciate for blood products, further management, -- per Dr. Balbuena's prev notes, "transfusions with irradiated leuko-poor blood products for hematocrit less than 25% and platelets less than 15,000.": -- Gave 2 units of PRBC 12/24.transfusion of 2PRBC and 2 platelets on 12/27 chronic, stable, resolved # Brief New onset Afib on 12/27,resolved -Patient had episode of atrial fibrillation with RVR for 2 hrs on 12/27. Resolved after Cardizem -Patient on Cardizem by mouth for hypertension. No history of atrial fibrillation -TSH WNL # AML -Dr Balbuena following # Fluid overload, resolved -Patient had 6 kg weight gain since admission. Diuresed with IV Lasix. Responded well. Discontinue Lasix # hypertension, continue patient's home medication Cardizem # insomnia chronic, At bedtime melatonin, Ativan PO when necessary home med Prophylaxis:We will hold off heparin or enoxaparin, his counts are too low he does not need it. dispo: pending, overall prognosis could be very poor with this ongoing infection. emotional/spiritual support encouraged diet:general diet dvt ppx:HSQ Full code VTE Prophylaxis: Other (not indicated, platelets too low) VTE Mechanical Devices: Intermittant Pneumatic CD Resuscitation Status: CPR: Attempt Resuscitation Time spent 35min Eben Lucio MD January 06, 2017 11:09
--- NOTE | 2017-01-06 15:43 | PROG NOTE ---
[address] [address] PROGRESS NOTE PATIENT: JEFF AMEZCUA : 1945 MR#: [id number] ADMIT: 12/24/2016 JOB ID: [id number] DATE: 01/06/2017 INFECTIOUS DISEASE FOLLOW UP NOTE: REASON FOR FOLLOWUP: Pulmonary nodules, probable hepatosplenic candidiasis, and persistent fevers in a patient with recovered neutropenia. INTERVAL HISTORY: Overnight, the patient has felt a little bit better from a systemic point of view, but has continued to have periods of fever with somewhat diminished periods of chills. He denies any significant headache, sore throat. No cough, except when he has paroxysms of fever when he has an occasional dry cough. No nausea, vomiting, diarrhea or dysuria. PHYSICAL EXAMINATION: Reveals an afebrile gentleman, but he was febrile to 39.2 early this morning. Pulse 75, respiratory rate 16, blood pressure 124/75, saturating well on room air. He appears a little less toxic than he did yesterday. Eyes without conjunctivitis. There is conjunctival pallor though. Oral cavity negative. His peripheral IV in his right upper extremity is benign appearing. Lungs basically clear to auscultation. Cardiac tones without new murmur. Abdomen: Soft, nontender. No hepatosplenomegaly is appreciated. No skin rash is appreciated. White blood count 2900 which is a dramatic improvement over yesterday. That is 78% segs for a neutrophil count now over 2000. His platelets have climbed also to 30,000 and his crit is stable at 28. Creatinine 0.68. LFTs normal except for an alk phos 168. Procalcitonin has dropped from 1.45 yesterday to 1.18 today. Urinalysis negative. The Fungitell done on the jumped to 45. Previously it had been undetectable. How significant this is unclear. All cultures remain negative except for the MRSA which grew from his nose earlier. Today's chest x-ray continues to show multiple pulmonary nodular densities. There are decreasing pleural effusions and some what appears to be atelectasis. IMPRESSION: This remains an extremely difficult case of a patient who developed febrile neutropenia after consolidation therapy for his AML. He clearly had a MRSA vestibulitis when he came in, as the cause of his fevers and that has resolved with two weeks of anti MRSA therapy, most recently using ceftaroline. Even as his MRSA vestibulitis resolved, the patient evolved worst and higher fevers associated with chills and paroxysmal dry cough. This occurred even as his white count improved. Serial imaging of the chest has shown the development of small non cavitating pulmonary nodules. Serial imaging of the abdomen showed just this week the development of classic lesions of hepatosplenic candidiasis which were not seen as recently as six days ago. The patient was started on Cresemba as an agent that would have coverage against mucor if that were possible in the lungs as well as [place]. Subsequently we added micafungin and he is now on what we hope is an additive combination of Cresemba in its fourth day and micafungin in its third day. Despite the use of antifungal drugs, the patient continues to have spiking fevers, though he does feel a bit better and the fevers may be moderating slightly. RECOMMENDATIONS: 1. Will continue with once a day Cresemba. 2. Will continue with once a day micafungin. 3. Will drop the ceftaroline as he has now finished two weeks of MRSA therapy. 4. If the patient continues despite, will repeat a CT of the chest, abdomen and pelvis and then consider bronchoscopy and/or biopsy of the lung lesions or biopsy of the liver.
[2017-01-06] MEDS: Micafungin Inj 150 MG in 0.9% Sodium Chloride 100 ML IV SCH (16:00)
--- NOTE | 2017-01-06 17:32 | NUR ---
Decreased activity Pt continues to feel lethargic this shift. Encouraged ambulation, however has only been out in hallways once this shift. Pt educated on importance of using incentive spirometer, Bed is down and locked, call light w/in reach
--- NOTE | 2017-01-06 18:33 | NUR ---
Afebrile Pt has remained afebrile since 0600. Tylenol given on schedule, encouraged IS throughout the day. Tele SR 79 per benefits technician. Patient reported mild sciatic pain in his hip. OOB to BR multiple times throughout the shift. is at bedside. Call light w/in reach, bed low/locked, VSS.
[2017-01-06] MEDS ORDERED: Ceftaroline Inj 600 MG in Dextrose 5% 250 ML IV SCH (20:30)
[2017-01-06] MEDS: LORazepam 1 mg Tablet PO SCH (20:52)
[2017-01-07] VITALS (15 sets, daily range): BP systolic 136–160; BP diastolic 64–99; PULSE 62–80; RESP 14–18; O2SAT 94–98
--- NOTE | 2017-01-07 03:41 | NUR ---
Afebrile Pt has remained afebrile up to this time- 0340AM. C/o mild pain to sciatica and rec'd prn motrin. Pt also receives routine tylenol/ at bedside early in shift and provides care. Pt using urinal this shift with good output. Pt states he has had no appetite today, did bring him a soup that he part of. care continues Addendum: 01/07/17 at 0628 by SURYA TURNER RN Pt continues to be afebrile- 06
[2017-01-07 06:10] LABS: BASOPHILS % (AUTO) 0 % (0-3); EOSINOPHILS % (AUTO) 0 % (0-5); MONOCYTES % (AUTO) 12.4 % (4-12); Mean Corpuscular Hemoglobin 30.2 pg (27.0-35.0); Mean Corpuscular Volume 88.3 fL (81-100); NEUTROPHILS % (AUTO) 71.3 % (40-74)
[2017-01-07 06:20] LABS: Magnesium 1.6 mg/dL (1.6-2.6); Phosphorus 4.1 mg/dL (2.5-4.9)
[2017-01-07 06:26] LABS: Platelet Count 19 bil/L (150-400)
[2017-01-07] MEDS: Pantoprazole 40 mg ER24 Tablet PO SCH (06:45)
[2017-01-07] MEDS ORDERED: Magnesium Sulf 2 Gm/50mL Water 2 GM in IV Premix 1 EACH IV ONE (07:25)
[2017-01-07] MEDS ORDERED: Potassium Chloride 20 mEq SR Tablet PO ONE (07:25)
[2017-01-07] MEDS: Omega-3 Fatty Acids 1,000 mg Capsule PO SCH (08:30)
[2017-01-07] MEDS: PARoxetine 20 mg Tablet PO SCH (08:30)
[2017-01-07] MEDS: 0.9% Sodium Chloride 250 ML IV SCH ×2 (09:00→17:30)
[2017-01-07] MEDS: Mupirocin 2% 22 Gm Ointment NASAL SCH ×2 (09:04→21:41)
--- NOTE | 2017-01-07 09:11 | PROG NOTE ---
[address] [address] PROGRESS NOTE PATIENT: JEFF AMEZCUA : 1945 MR#: [id number] ADMIT: 12/24/2016 JOB ID: [id number] DATE: 01/07/2017 SUBJECTIVE: The patient is a 71-year-old gentleman with acute myelogenous leukemia, in remission. He remains hospitalized with febrile neutropenia following consolidation chemotherapy with leonor-C plus idarubicin. Cultures have been negative, but he has had frequent high fevers, although none since about 6 a.m. yesterday. No bleeding. He remains on antibiotic coverage with micafungin 150 mg IV daily and Cresemba per Dr. Hackett. OBJECTIVE: Vitals: T 36.7, P 62, R 18, BP 160/77. HEENT: Conjunctivae pale. Mucous membranes moist. No oral lesions. Nodes: No adenopathy in the neck, axillae, or groin. Chest: A few basilar crackles. Cardiac exam: Regular rate and rhythm. Abdomen: Soft, nontender. Extremities: Trace pedal edema, 1+ distal pulses. LABORATORIES: WBC 2.3 with 71% neutrophils, hemoglobin 8.8, hematocrit 25.7%, platelets 19,000. BUN 11, creatinine 0.54, glucose 112. AST 18, ALT 34, alkaline phosphatase 152. ASSESSMENT AND PLAN: Acute myelogenous leukemia, status post induction, re-induction, and consolidation chemotherapy with leonor-C and idarubicin. The patient is clinically in remission based on prior bone marrow studies and current laboratory findings. However, he does have pancytopenia, although not neutropenic. Continue antifungal coverage per Dr. Hackett. Dr. Farris saw the patient earlier today and is planning bronchoscopy later today. Based on his low platelet count, we will arrange for a transfusion with 1 unit of platelets after premedication with Tylenol 650 mg by mouth and hydrocortisone 50 mg IV. He has recently started paroxetine (Paxil) 20 mg by mouth daily for depression. He is complaining of restless legs, which may be related, but we will continue to monitor for the time being. [facility]
[2017-01-07] MEDS ORDERED: Hydrocortisone 50 mg/mL 2 mL Inj IV ONE (10:15)
[2017-01-07] MEDS: Diltiazem CD 120 mg ER24 Capsule PO SCH (10:33)
--- NOTE | 2017-01-07 11:09 | PCM.PNMED ---
Subjective Date of Service January 07, 2017 Subjective no febrile episode with standing tylenol pt remained stable, still weak, pt opted for BAL after discussion with , planned for today Exam Vital Signs Vital Sign - Last Date Time Temp Pulse Resp B/P Pulse Ox O2 Delivery O2 Flow Rate FiO2 01/07/17 10:57 37.1 68 16 144/73 01/07/17 08:33 98 Room Air Intake and Output 01/06/17 01/06/17 01/07/17 Cumulative From/Thru 15:00 23:00 07:00 12/24/16 10:16 - 01/07/17 06:22 Intake Total 3188 ml 900 ml 86953 ml Output Total 1450 ml 950 ml 32974 ml Balance 1738 ml -50 ml 12109 ml Intake Oral 2425 ml 800 ml 62971 ml IV Total 763 ml 100 ml 09544 ml Packed Cells 1500 ml Platelets 415 ml Output Urine Total 1450 ml 950 ml 02060 ml # Voids 13 # Bowel Movements 1 0 4 Exam cachetic middle-aged male, looked weak comfortably laying down on the bed no JVD, MMM, no LAD, no sinus tenderness RRR, nl s1, s2 no mrg mild insp crackles throughout S,ND,NT,normoactive BS+ warm, no edema, pulses 2/2 IVs and Medications Medications Reviewed: Medications were reviewed in detail Lab and Diagnostics Result Diagram: 01/07/17 0525 01/07/17 0525 X-Rays, CTs and MRIs PROCEDURE: X-RAY CHEST, TWO VIEWS ([id number]) INDICATIONS: Cough and fever TECHNIQUE: 2 views of the chest were acquired. COMPARISON: [facility], CT, CT CHEST WO CON, 12/28/2016, 12:29. [facility], CR, XR CHEST 1VW, 12/30/2016, 18:01. [facility], CR, XR CHEST 2VW, 12/28/2016, 9:43. FINDINGS: Surgical changes and devices: None. Lungs and pleura: There are persistent small bilateral pleural effusions. There are scattered indistinct small nodular opacities redemonstrated bilaterally, similar in appearance to the prior studies. Mediastinum: Mediastinal contours are normal. Heart size is normal. Bones and chest wall: No suspicious bony abnormalities. Soft tissues appear unremarkable. IMPRESSION: 1. Persistent small pleural effusions and scattered indistinct nodular opacities similar in appearance to the prior studies. Dictated by: Steve Brand M.D. on 01/02/2017 at 9:47 Approved by: Steve Brand M.D. on 01/02/2017 at 9:48 PROCEDURE: CT CHEST WITHOUT CONTRAST ([id number]) INDICATIONS: F/U pulm nodules-AML with fever TECHNIQUE: Noncontrast 5 mm thick sections acquired from the pulmonary apices to the posterior costophrenic angles. 7 mm thick coronal and sagittal MIP reformats were then acquired. For radiation dose reduction, the following was used: automated exposure control, adjustment of mA and/or kV according to patient size. COMPARISON: [facility], CT, CT ABD PELVIS W CON, 12/31/2016, 12:11. [facility], CT, CT CHEST WO CON, 12/28/2016, 12:29. FINDINGS: Image quality: Excellent. Lungs and pleura: Small bilateral pleural effusions with adjacent atelectasis. Scattered subcentimeter bilateral widespread pulmonary nodules, demonstrating mild surrounding groundglass. There is diffuse, mild interval increase in size and conspicuity since the prior study dated 12/28/16. For example pleural based nodules on image 27 in the left upper lobe measures 8 mm, previously 2 mm. Mediastinum: Heart size is normal. There is trace pericardial effusion. No mediastinal adenopathy by size criteria. Thoracic aorta and central pulmonary arteries are normal in size. Esophagus is normal in caliber. No hiatal hernia. Bones and chest wall: No suspicious bony lesions. No vertebral body compression fractures. No axillary or supraclavicular adenopathy by size criteria. Thyroid gland unremarkable. Abdomen: In the visualized liver, there is suggestion of innumerable hypodense ill-defined nodules at the left and right lobes, however limited evaluation in the absence of IV contrast. Of note, on the prior study dated 12/31/16 these were not present. Similar-appearing lesions are now present in the spleen IMPRESSION: Interval progression in widespread subcentimeter bilateral pulmonary nodules with surrounding groundglass attenuation suggesting an infectious or inflammatory etiology. Septic emboli in the differential. Please correlate clinically. Small bilateral pleural effusions with adjacent atelectasis appear stable to mildly decreased. Trace pericardial effusion. Ill-defined nodules within the liver and spleen which appear new since prior study. The rapid development is suggestive of infection, possibly multiple micro -abscesses, such as candidiasis in the immunocompromised setting. Findings were personally telephoned to Dr. Hackett 01/03/17 1434 hours Dictated by: Paulino Joseph M.D. on 01/03/2017 at 13:25 Approved by: Paulino Joseph M.D. on 01/03/2017 at 14:34 Assessment & Plan Acute, active #Persistent neutropenic fever, POA, Initially thought due to suspected sinusitis based on imaging and nasal erythema on presentation. Patient has no symptoms at this point localizing infection source. CT chest and abd unrevealing. CT sinus consistent with sinusitis but no symptoms or sinus tenderness.previously consulted pulmonology and no bronchoscopy indicated, lungs do not seem to be the source although CT abd 12/31, 01/[address] showed newly developed multiple lung, liver, spleen nodules, consistent to systemic fungal infection-dominique, mucor. PICC line discontinued 01/01, tip culture ngtd. serial BCX ngtd. fungal culture/Fungiteil 01/03 sent. -pt is clinically stable, fever curves trending down, labs trends are equivocal , PCT down. -follow up with ID Dr Hackett and oncology , -- Treated with meropenem 2g q8h and vancomycin for about a week /since admission. ID switched antibiotics to ceftaroline and ciprofloxacin by mouth . Given concern for systemic fungal infection, started Cresemba ( isavuconazonium) for broad coverage, added micafungin -appreciate for BAL today, -deferred ENT consult for sinus discharge, as pt is not symptomatic, discussed with , stopped standing Afrin bid today. #chronic anemia, thrombocytopenia, neutropenia POA, -ANC mildly worsened, PLT also dropped, no signs of active bleeding -with AML in remission, s/p consolidation chemo of 5days of idarubicin IV, cytarabine (SIMÓN-C) 12/14. s/p 2units pRBC, 2PLT 12/23 -appreciate for blood products, further management, -- per Dr. Balbuena's prev notes, "transfusions with irradiated leuko-poor blood products for hematocrit less than 25% and platelets less than 15,000.": -- Gave 2 units of PRBC 12/24.transfusion of 2PRBC and 2 platelets on 12/27 chronic, stable, resolved # Brief New onset Afib on 12/27,resolved -Patient had episode of atrial fibrillation with RVR for 2 hrs on 12/27. Resolved after Cardizem -Patient on Cardizem by mouth for hypertension. No history of atrial fibrillation -TSH WNL # AML -Dr Balbuena following # Fluid overload, resolved -Patient had 6 kg weight gain since admission. Diuresed with IV Lasix. Responded well. Discontinue Lasix # hypertension, continue patient's home medication Cardizem # insomnia chronic, At bedtime melatonin, Ativan PO when necessary home med Prophylaxis:We will hold off heparin or enoxaparin, his counts are too low he does not need it. dispo: pending, overall prognosis could be very poor with this ongoing infection. emotional/spiritual support encouraged diet:general diet Full code VTE Prophylaxis: Other (not indicated, platelets too low) VTE Mechanical Devices: Intermittant Pneumatic CD Resuscitation Status: CPR: Attempt Resuscitation Time spent 35min Eben Lucio MD January 07, 2017 11:09
--- NOTE | 2017-01-07 12:30 | NUR ---
Transfusion Pt tolerated 1 unit platelets with no s/s of rxn. Care continues.
--- NOTE | 2017-01-07 14:31 | PROG NOTE ---
[address] [address] PROGRESS NOTE PATIENT: JEFF AMEZCUA : 1945 MR#: [id number] ADMIT: 12/24/2016 JOB ID: [id number] PULMONARY PROGRESS NOTE: DATE: 01/07/2017 HISTORY: This patient is a 71-year-old man with AML in remission, admitted to the hospital with febrile neutropenia. I am seeing him in followup regarding pulmonary nodules. INTERVAL HISTORY: His last fever was yesterday morning at 6 a.m., 38.4. He denies any significant sputum, although has an occasional cough. Denies shortness of breath, chills, sweats, chest pain. REVIEW OF SYSTEMS: As above. PHYSICAL EXAMINATION: Vital signs reviewed. T-max 39.2 at 4:30 a.m. yesterday. He is on room air and hemodynamically stable. General: Thin gentleman lying in bed. Chest: Clear to auscultation. Skin: No rashes. LABORATORY DATA: Labs reviewed. WBC 2.3, 71% neutrophils, hemoglobin 8.8, and platelets 19 down from 30 yesterday. Serologies are negative for cryptococcal antigen, fungal antibodies, and Aspergillus, galactomannan. Culture data shows no growth on blood cultures. Respiratory viral PCR from December 24, 2016 was negative. MRSA positive from nasal swab on December 24. IMAGING: CT of the chest from January 03, 2017, reviewed and shows diffuse bilateral pulmonary nodules measuring approximately 1-2 cm at the max. Appearance and distribution is highly concerning for a fungal or atypical infection. No lymphadenopathy. There is also evidence of nodules in the liver and spleen. ASSESSMENT AND RECOMMENDATIONS: 1. Bilateral pulmonary nodules - concerning for opportunistic infection. 2. Immunocompromised patient. 3. Neutropenic fever. 4. Acute myelogenous leukemia, status post chemotherapy, with pancytopenia, in remission. This 71-year-old man is in the hospital with neutropenic fever. He is being treated with antifungals for hepatosplenic candidiasis. He has been in the hospital since December 24. With regards to his pulmonary nodules, the appearance is concerning for fungal infections such as Aspergillus, Mucor, other endemic fungi, and also no cardia or nontuberculous mycobacteria in this severely immunocompromised patient. It is possible that he is afebrile today, but given his persistent fevers on antifungal therapy for greater than four days, I offered the patient and his the option of just doing a bronchoscopy today rather than waiting over the weekend and reassessing. After much thought and discussion, they agreed with proceeding, and both his oncologist and Infectious Disease specialist agreed with this plan. We are going to proceed with a bronchoscopy this afternoon with plan to send the samples for bacterial, fungal, AFB, and viral PCR and cultures. I explained to the patient that most likely all of the tests that are of specific interest to us will not be resulted until mid week or late next week. If we have any positive results over the weekend, I will come back and speak to the patient about it. Discussed with Dr. Balbuena, Dr. Lucio, and Dr. Hackett.
--- NOTE | 2017-01-07 14:50 | NUR ---
Pt off unit Pt off unit to endoscopy.
--- NOTE | 2017-01-07 15:03 | PROG NOTE ---
[address] [address] PROGRESS NOTE PATIENT: JEFF AMEZCUA : 1945 MR#: [id number] ADMIT: 12/24/2016 JOB ID: [id number] DATE: 01/07/2017 INFECTIOUS DISEASE FOLLOW UP NOTE: REASON FOR FOLLOW UP: Probable disseminated candidiasis with possibility of mucor or other invasive organism causing pulmonary nodules in a patient who has recovered from febrile neutropenia due to AML. INTERVAL HISTORY: In the past 24 hours, the patient has been without fever. This is really the first time he has been without fever since his readmission back 15 days ago. This represents a significant milestones. Unfortunately the patient is profoundly fatigued and almost cannot get out of bed today because a SSRI was started yesterday and seems to have sent the patient for a loop. He denies fevers, chills or sweats. No significant increase in cough. No nausea, vomiting, diarrhea. PHYSICAL EXAMINATION: Reveals a gentleman who is thankfully afebrile. Temperature 37.2, pulse 69, respiratory rate 16, blood pressure 155/81. He is in no distress but looks very lethargic. Oral cavity negative. Lungs basically clear. Cardiac tones without new murmur. Abdomen benign. No hepatosplenomegaly appreciated. LABORATORIES: Labs white count 2300 which has been static for the past five days. Platelet count also static today 20,000. Crit 26, creatinine 0.54. LFTs are normal. Procalcitonin stable at 1.2. Urinalysis without white cells. Fungitell 45. Micro studies include negative blood cultures times many sets. IMAGING: No new imaging is available. Our last chest x-ray was done yesterday shows widespread pulmonary nodules. IMPRESSION: This is a difficult case of a gentleman who had acute myeloid leukemia about three months ago and presented with Pseudomonas sepsis as the initial manifestation. He did well after a 50 day hospital stay and then received consolidative chemotherapy, developed profound neutropenia with fevers and had a MRSA infection of his nose. This resolved and the patient seemed to be improving only to fall back into a pattern of recurrent high fevers. Serial imaging showed the development of small pulmonary nodules and eventually on this past Tuesday, January 03, the development of hepatic splenic nodules which had not been seen previously. We are stuck between trying to figure out the nature of the pulmonary nodules and a probable diagnosis of hepatosplenic candidiasis. The patient was initially started on Cresemba and his fevers were slow to resolve so micafungin was added for additional anti Sierra therapy and now on the fourth or fifth day of antifungal therapy the patient has defervesced and is much improved. The operative question now is what we have improved. Are we strictly treating hepatosplenic candidiasis with some pulmonary nodules, which is occasionally reported, or does he have two things or perhaps some other unifying diagnosis which does not even involve Sierra. At this point, it seems fairly clear though that this is a fungal process. RECOMMENDATIONS: 1. Will continue with once a day Cresemba and once a day IV micafungin. 2. I have discussed this case in detail with Dr. Farris and she plans to do bronchoscopy with BAL today. We discussed the appropriate microbiologic studies to be done including bacterial and fungal PCR studies on the bronch wash. 3. Will continue to follow this patient with you. I would not discharge the patient until next week so we can observe him two or three days afebrile before we come up with a final conclusion. The PCR studies and the bronch today will be helpful in that regard.
[2017-01-07] MEDS: 0.9% Sodium Chloride 1,000 ML IV SCH ×3 (15:16→15:58)
[2017-01-07] MEDS ORDERED: Lidocaine Topical 2% 30 mL Jelly ONE (15:17)
[2017-01-07] MEDS ORDERED: Lidocaine PF 2% 10 mL Inj ONE (15:18)
[2017-01-07] MEDS ORDERED: fentaNYL-PF 50 mCg/mL 2 mL Inj IVPUSH PRN ×2 (15:20→15:50)
[2017-01-07] MEDS ORDERED: 0.9% Sodium Chloride 1,000 ML IV ONE (15:47)
[2017-01-07] MEDS ORDERED: Lidocaine Topical 2% 30 mL Jelly TOPICAL ONE (15:50)
[2017-01-07] MEDS ORDERED: Lidocaine PF 2% 10 mL Inj MUC_MEMBRM ONE (15:50)
[2017-01-07] MEDS ORDERED: Lidocaine PF 2% 10 mL Inj MUC_MEMBRM PRN (15:50)
--- NOTE | 2017-01-07 16:53 | NUR ---
Pt back to Unit Pt back from endoscopy. A&Ox3. SHIPMAN. Able to transfer from stretcher to bed. Pt has slight cough. Tolerating clear liquids well. Care continues.
[2017-01-07] MEDS: Micafungin Inj 150 MG in 0.9% Sodium Chloride 100 ML IV SCH (17:33)
[2017-01-07 17:38] LABS: BFWBC 80 /mm3; MONOCYTES,BODY FLUID 27 %; OTHER CELLS,BODY FLUID 63
--- NOTE | 2017-01-07 17:48 | ENDO ---
[address] [address] ENDOSCOPY PROCEDURE PATIENT: JEFF AMEZCUA : 1945 MR#: [id number] ADMIT: 12/24/2016 JOB ID: [id number] DATE OF SERVICE: 01/07/2017 PROCEDURE: Bronchoscopy. SENIOR SOFTWARE QUALITY ANALYST: Jocelyn Farris MD, Pulmonary Medicine. INDICATION: Bilateral pulmonary nodules. CONSENT: Informed consent was obtained from the patient after risks and benefits of the procedure were discussed in detail. DESCRIPTION: The patient was asked to gargle lidocaine and additional lidocaine was administered via atomizer. The scope was then passed through the mouth into the trachea. Trachea and bilateral airways were completely normal in appearance. There was no evidence of mucosal masses or abnormalities. There was some petechiae that were most likely due to coughing in the setting of thrombocytopenia. We then proceeded to do a bronchoalveolar lavage first in the anterior segment of the right upper lobe and then subsequently in the superior segment of the left lower lobe. There was no evidence of valvular hemorrhage based on these lavages. SAMPLES: BAL of the anterior segment right upper lobe and superior segment left lower lobe were both collected and pooled. Samples sent for testing including bacterial fungal AFB cultures, as well as Pneumocystis, Legionella, viral PCR. We also sent them to [facility] for bacterial, fungal, AFB, PCR. I also requested cell count with diff and cytology on these specimens. PATIENT COMPLICATIONS: No bleeding. The patient had a lot of coughing with the procedure but did not have any desaturation. I informed the patient that airway evaluation was completely normal. I do not expect much in the way of results over the weekend and most likely will take nearly a week for the more important results to be back, but we will communicate with him as soon as I see any positive results.
[2017-01-07] MEDS: LORazepam 1 mg Tablet PO SCH (21:41)
[2017-01-08] VITALS (8 sets, daily range): BP systolic 131–165; BP diastolic 63–73; PULSE 72–94; RESP 16–18; O2SAT 95–98
--- NOTE | 2017-01-08 05:07 | NUR ---
Fever Recurrence of fever at about midnight, given Tylenol with good result. Blood cultures taken per standing order for temp>38.[address] Balbuena, last blood culture >3 days ago. Generalized weakness continues, pt has not been ambulating much. Denies pain. Hourly rounding ongoing.
[2017-01-08] MEDS: Pantoprazole 40 mg ER24 Tablet PO SCH (05:36)
[2017-01-08 05:59] LABS: BASOPHILS % (AUTO) 0.3 % (0-3); EOSINOPHILS % (AUTO) 0 % (0-5); MONOCYTES % (AUTO) 8.2 % (4-12); Mean Corpuscular Hemoglobin 29.5 pg (27.0-35.0); Mean Corpuscular Volume 88.8 fL (81-100); NEUTROPHILS % (AUTO) 77.9 % (40-74); Platelet Count 40 bil/L (150-400)
[2017-01-08] MEDS: PARoxetine 20 mg Tablet PO SCH (08:30)
[2017-01-08] MEDS: Diltiazem CD 120 mg ER24 Capsule PO SCH (08:54)
[2017-01-08] MEDS: Mupirocin 2% 22 Gm Ointment NASAL SCH ×2 (08:54→20:43)
[2017-01-08] MEDS: Omega-3 Fatty Acids 1,000 mg Capsule PO SCH (08:55)
--- NOTE | 2017-01-08 11:52 | PROG NOTE ---
[address] [address] PROGRESS NOTE PATIENT: JEFF AMEZCUA : 1945 MR#: [id number] ADMIT: 12/24/2016 JOB ID: [id number] DATE: 01/08/2017 PULMONARY PROGRESS NOTE: The patient is a 71-year-old man seen in followup for neutropenic fevers in the setting of AML in remission, with bilateral pulmonary nodules concerning for opportunistic infection. INTERVAL HISTORY: He underwent uneventful bronchoscopy yesterday afternoon. He had another fever early this morning around midnight to 5 a.m. of 39.2 max. He had some chills associated with it but says they were shorter than previous episodes of chills. REVIEW OF SYSTEMS: As above. Cough improved. No dyspnea. No chest pain. PHYSICAL EXAMINATION: Vital signs reviewed. T-max 39.2, pulse 74, respirations 18, BP 131/66, sats 96% on room air. A thin gentleman sitting up in bed, speaking appropriately. Chest is clear to auscultation. LABORATORIES: Reviewed. WBC 3.5, platelets 40. Chemistry also reviewed and within normal limits. BAL fluid analysis shows 80 WBCs, 1900 RBCs, 2% PMNs, 8% lymphocytes and 27% monocytes. Culture-most of the testing is still pending. Respiratory viral PCR from BAL is completely negative. Gram stain is also negative for organisms. ASSESSMENT AND RECOMMENDATIONS: 1. Neutropenic fevers. 2. Bilateral pulmonary nodules concerning for opportunistic infection. 3. Immunocompromised patient. 4. AML status post chemo with pancytopenia in remission. I explained to the patient again that most of the pertinent results from the bronchoscopy will probably not be back until the middle of next week. Probably the highest utility amongst the tests sent for rule bronchoscopy would be the bacterial, fungal and AFB PCRs. These would help rule out Aspergillus, nocardia, mucor and other organisms that would give this appearance of bilateral pulmonary nodules. Nontuberculous mycobacteria I suppose could also give this appearance but I would think that is less likely. He had a fever early this morning but that could simply be due to inflammation from bronchoscopy. It is not unusual for patients to have a fever within 12 hours post bronchoscopy. We should wait and see how he does over the next couple of days. Dr. Hackett is managing his multitude of antibiotics. Pulmonary service is available for questions, but really at this point, following up on the results is what is pending. Dr. Barr is taking over the pulmonary service on January 10.
--- NOTE | 2017-01-08 11:57 | PCM.PNMED ---
Subjective Date of Service January 08, 2017 Subjective Patient tolerated BAL per , viral studies negative, Patient had another febrile episode, on when necessary Tylenol dosing temp up to 39.2 around MN patient denies any complaints Exam Vital Signs Vital Sign - Last Date Time Temp Pulse Resp B/P Pulse Ox O2 Delivery O2 Flow Rate FiO2 01/08/17 09:04 36.6 74 18 131/66 96 Room Air 01/07/17 16:24 1 Intake and Output 01/07/17 01/07/17 01/08/17 Cumulative From/Thru 15:00 23:00 07:00 12/24/16 10:16 - 01/08/17 06:50 Intake Total 393 ml 550 ml 800 ml 57013 ml Output Total 975 ml 700 ml 02143 ml Balance 393 ml -425 ml 100 ml 32425 ml Intake Oral 400 ml 800 ml 69153 ml IV Total 40 ml 150 ml 41778 ml Packed Cells 1500 ml Platelets 353 ml 768 ml Output Urine Total 975 ml 700 ml 73638 ml # Voids 13 # Bowel Movements 0 4 Exam cachetic middle-aged male, looked weak comfortably laying down on the bed no JVD, MMM, no LAD, no sinus tenderness RRR, nl s1, s2 no mrg mild insp crackles throughout S,ND,NT,normoactive BS+ warm, no edema, pulses 2/2 IVs and Medications Medications Reviewed: Medications were reviewed in detail Lab and Diagnostics Result Diagram: 01/08/1753401/08/17 0535 X-Rays, CTs and MRIs PROCEDURE: X-RAY CHEST, TWO VIEWS ([id number]) INDICATIONS: Cough and fever TECHNIQUE: 2 views of the chest were acquired. COMPARISON: [facility], CT, CT CHEST WO CON, 12/28/2016, 12:29. [facility], CR, XR CHEST 1VW, 12/30/2016, 18:01. [facility], CR, XR CHEST 2VW, 12/28/2016, 9:43. FINDINGS: Surgical changes and devices: None. Lungs and pleura: There are persistent small bilateral pleural effusions. There are scattered indistinct small nodular opacities redemonstrated bilaterally, similar in appearance to the prior studies. Mediastinum: Mediastinal contours are normal. Heart size is normal. Bones and chest wall: No suspicious bony abnormalities. Soft tissues appear unremarkable. IMPRESSION: 1. Persistent small pleural effusions and scattered indistinct nodular opacities similar in appearance to the prior studies. Dictated by: Steve Brand M.D. on 01/02/2017 at 9:47 Approved by: Steve Brand M.D. on 01/02/2017 at 9:48 PROCEDURE: CT CHEST WITHOUT CONTRAST ([id number]) INDICATIONS: F/U pulm nodules-AML with fever TECHNIQUE: Noncontrast 5 mm thick sections acquired from the pulmonary apices to the posterior costophrenic angles. 7 mm thick coronal and sagittal MIP reformats were then acquired. For radiation dose reduction, the following was used: automated exposure control, adjustment of mA and/or kV according to patient size. COMPARISON: [facility], CT, CT ABD PELVIS W CON, 12/31/2016, 12:11. [facility], CT, CT CHEST WO CON, 12/28/2016, 12:29. FINDINGS: Image quality: Excellent. Lungs and pleura: Small bilateral pleural effusions with adjacent atelectasis. Scattered subcentimeter bilateral widespread pulmonary nodules, demonstrating mild surrounding groundglass. There is diffuse, mild interval increase in size and conspicuity since the prior study dated 12/28/16. For example pleural based nodules on image 27 in the left upper lobe measures 8 mm, previously 2 mm. Mediastinum: Heart size is normal. There is trace pericardial effusion. No mediastinal adenopathy by size criteria. Thoracic aorta and central pulmonary arteries are normal in size. Esophagus is normal in caliber. No hiatal hernia. Bones and chest wall: No suspicious bony lesions. No vertebral body compression fractures. No axillary or supraclavicular adenopathy by size criteria. Thyroid gland unremarkable. Abdomen: In the visualized liver, there is suggestion of innumerable hypodense ill-defined nodules at the left and right lobes, however limited evaluation in the absence of IV contrast. Of note, on the prior study dated 12/31/16 these were not present. Similar-appearing lesions are now present in the spleen IMPRESSION: Interval progression in widespread subcentimeter bilateral pulmonary nodules with surrounding groundglass attenuation suggesting an infectious or inflammatory etiology. Septic emboli in the differential. Please correlate clinically. Small bilateral pleural effusions with adjacent atelectasis appear stable to mildly decreased. Trace pericardial effusion. Ill-defined nodules within the liver and spleen which appear new since prior study. The rapid development is suggestive of infection, possibly multiple micro -abscesses, such as candidiasis in the immunocompromised setting. Findings were personally telephoned to Dr. Hackett 01/03/17 1434 hours Dictated by: Paulino Joseph M.D. on 01/03/2017 at 13:25 Approved by: Paulino Joseph M.D. on 01/03/2017 at 14:34 Assessment & Plan Acute, active #Persistent neutropenic fever, POA, Initially thought due to suspected sinusitis based on imaging and nasal erythema on presentation. Patient has no symptoms at this point localizing infection source. CT chest and abd unrevealing. CT sinus consistent with sinusitis but no symptoms or sinus tenderness.previously consulted pulmonology and no bronchoscopy indicated, lungs do not seem to be the source although CT abd 12/31, 01/[address] showed newly developed multiple lung, liver, spleen nodules, consistent to systemic fungal infection-dominique, mucor. PICC line discontinued 01/01, tip culture ngtd. serial BCX ngtd. fungal culture/Fungiteil 01/03 sent. -pt is clinically stable, fever curves wax and wane, labs trends are equivocal, PCT down. -follow up with ID Dr Hackett and oncology , -- Treated with meropenem 2g q8h and vancomycin for about a week /since admission. ID switched antibiotics to ceftaroline and ciprofloxacin by mouth . Given concern for systemic fungal infection, started Cresemba ( isavuconazonium) for broad coverage, added micafungin -appreciate for BAL 01/07, awaits final result of BAL, viral PCR neg. AFB/CMV/PCP pending -deferred ENT consult for sinus discharge, as pt is not symptomatic, discussed with , stopped standing Afrin bid today. #chronic anemia, thrombocytopenia, neutropenia POA, -ANC/PLT overal improvement, no signs of active bleeding -with AML in remission, s/p consolidation chemo of 5days of idarubicin IV, cytarabine (SIMÓN-C) 12/14. s/p 2units pRBC, 2PLT 12/23 -appreciate for blood products, further management, -- per Dr. Balbuena's prev notes, "transfusions with irradiated leuko-poor blood products for hematocrit less than 25% and platelets less than 15,000.": -- Gave 2 units of PRBC 12/24.transfusion of 2PRBC and 2 platelets on 12/27 chronic, stable, resolved # Brief New onset Afib on 12/27,resolved -Patient had episode of atrial fibrillation with RVR for 2 hrs on 12/27. Resolved after Cardizem -Patient on Cardizem by mouth for hypertension. No history of atrial fibrillation -TSH WNL # AML -Dr Balbuena following # Fluid overload, resolved -Patient had 6 kg weight gain since admission. Diuresed with IV Lasix. Responded well. Discontinue Lasix # hypertension, continue patient's home medication Cardizem # insomnia chronic, At bedtime melatonin, Ativan PO when necessary home med Prophylaxis:We will hold off heparin or enoxaparin, his counts are too low he does not need it. dispo: pending, overall prognosis could be very poor with this ongoing infection. emotional/spiritual support encouraged diet:general diet Full code VTE Prophylaxis: Other (not indicated, platelets too low) VTE Mechanical Devices: Intermittant Pneumatic CD Resuscitation Status: CPR: Attempt Resuscitation Time spent 35min Eben Lucio MD January 08, 2017 11:51
[2017-01-08] MEDS: Micafungin Inj 150 MG in 0.9% Sodium Chloride 100 ML IV SCH (15:00)
[2017-01-08] MEDS: 0.9% Sodium Chloride 1,000 ML IV SCH (15:16)
--- NOTE | 2017-01-08 15:20 | NUR ---
Social Work Note: Continued Discharge Planning Data& Assessment: Per pt is not medically ready for discharge at this time. Pt had another fever overnight. ID is following. SW met with pt and pt at bedside to check in and assess for any unmet needs. Pt and pt decline any needs at this time and confirm plant to discharge home via POV when medically ready. SW to continue to follow for medical readiness and in case any discharge needs arise. Plan: Per pt is not medically ready for discharge at this time. Anticipated discharge home via POV when medically ready. Pt and pt decline any needs at this time. SW to continue to follow for medical readiness and in case any discharge needs arise. JAZMIN Toscano
--- NOTE | 2017-01-08 16:07 | NUR ---
fever 38.8 C, with chills and malaise, Tylenol given and was very helpful. denies pain, lungs clear, although does have occas cough. pt had bronchoscopy yesterday
[2017-01-08] MEDS: LORazepam 1 mg Tablet PO SCH (20:42)
[2017-01-09] VITALS (9 sets, daily range): BP systolic 123–182; BP diastolic 65–77; PULSE 72–92; RESP 16–20; O2SAT 95–100
--- NOTE | 2017-01-09 04:39 | NUR ---
Fever Temperature 36.8 at start of shift. However, temp increased to 38.6. Ibuprofen and Tylenol given for fever, and seems to be effective. Will continue to monitor.
[2017-01-09 05:59] LABS: Magnesium 1.6 mg/dL (1.6-2.6); Phosphorus 3.6 mg/dL (2.5-4.9)
[2017-01-09] MEDS: Pantoprazole 40 mg ER24 Tablet PO SCH (06:27)
[2017-01-09 06:47] LABS: Mean Corpuscular Hemoglobin 30.2 pg (27.0-35.0); Mean Corpuscular Volume 89.9 fL (81-100)
[2017-01-09 06:48] LABS: BASOPHILS % (AUTO) 0 % (0-3); EOSINOPHILS % (AUTO) 0 % (0-5); MONOCYTES % (AUTO) 9.6 % (4-12); NEUTROPHILS % (AUTO) 81.7 % (40-74); Platelet Count 27 bil/L (150-400)
[2017-01-09] MEDS: 0.9% Sodium Chloride 1,000 ML IV SCH ×4 (08:54→21:29)
[2017-01-09] MEDS: Mupirocin 2% 22 Gm Ointment NASAL SCH ×2 (08:55→21:28)
[2017-01-09] MEDS: Omega-3 Fatty Acids 1,000 mg Capsule PO SCH (08:56)
[2017-01-09] MEDS: 0.9% Sodium Chloride 250 ML IV SCH (09:00)
[2017-01-09] MEDS: Diltiazem CD 120 mg ER24 Capsule PO SCH (09:12)
--- NOTE | 2017-01-09 10:22 | PCM.PNMED ---
Subjective Date of Service January 09, 2017 Subjective pt had fever >101 this AM, interval>12hrs, general trends is less frequent but eating well with good appetite, denied any pain, Exam Vital Signs Vital Sign - Last Date Time Temp Pulse Resp B/P Pulse Ox O2 Delivery O2 Flow Rate FiO2 01/09/17 08:19 37.1 75 18 123/68 99 Room Air 01/07/17 16:24 1 Intake and Output 01/08/17 01/08/17 01/09/17 Cumulative From/Thru 15:00 23:00 07:00 12/24/16 10:16 - 01/09/17 06:15 Intake Total 2194 ml 900 ml 26813 ml Output Total 1425 ml 2100 ml 43702 ml Balance 769 ml -1200 ml 80168 ml Intake Oral 2194 ml 900 ml 63630 ml IV Total 22177 ml Packed Cells 1500 ml Platelets 768 ml Output Urine Total 1425 ml 2100 ml 56498 ml # Voids 13 # Bowel Movements 0 4 Exam cachetic middle-aged male, looked weak comfortably laying down on the bed no JVD, MMM, no LAD, no sinus tenderness RRR, nl s1, s2 no mrg CTAB, no w,c S,ND,NT,normoactive BS+ warm, no edema, pulses 2/2 IVs and Medications Medications Reviewed: Medications were reviewed in detail Lab and Diagnostics Result Diagram: 01/09/1752401/09/17 05 X-Rays, CTs and MRIs PROCEDURE: X-RAY CHEST, TWO VIEWS ([id number]) INDICATIONS: Cough and fever TECHNIQUE: 2 views of the chest were acquired. COMPARISON: [facility], CT, CT CHEST WO CON, 12/28/2016, 12:29. [facility], CR, XR CHEST 1VW, 12/30/2016, 18:01. [facility], CR, XR CHEST 2VW, 12/28/2016, 9:43. FINDINGS: Surgical changes and devices: None. Lungs and pleura: There are persistent small bilateral pleural effusions. There are scattered indistinct small nodular opacities redemonstrated bilaterally, similar in appearance to the prior studies. Mediastinum: Mediastinal contours are normal. Heart size is normal. Bones and chest wall: No suspicious bony abnormalities. Soft tissues appear unremarkable. IMPRESSION: 1. Persistent small pleural effusions and scattered indistinct nodular opacities similar in appearance to the prior studies. Dictated by: Steve Brand M.D. on 01/02/2017 at 9:47 Approved by: Steve Brand M.D. on 01/02/2017 at 9:48 PROCEDURE: CT CHEST WITHOUT CONTRAST ([id number]) INDICATIONS: F/U pulm nodules-AML with fever TECHNIQUE: Noncontrast 5 mm thick sections acquired from the pulmonary apices to the posterior costophrenic angles. 7 mm thick coronal and sagittal MIP reformats were then acquired. For radiation dose reduction, the following was used: automated exposure control, adjustment of mA and/or kV according to patient size. COMPARISON: [facility], CT, CT ABD PELVIS W CON, 12/31/2016, 12:11. [facility], CT, CT CHEST WO CON, 12/28/2016, 12:29. FINDINGS: Image quality: Excellent. Lungs and pleura: Small bilateral pleural effusions with adjacent atelectasis. Scattered subcentimeter bilateral widespread pulmonary nodules, demonstrating mild surrounding groundglass. There is diffuse, mild interval increase in size and conspicuity since the prior study dated 12/28/16. For example pleural based nodules on image 27 in the left upper lobe measures 8 mm, previously 2 mm. Mediastinum: Heart size is normal. There is trace pericardial effusion. No mediastinal adenopathy by size criteria. Thoracic aorta and central pulmonary arteries are normal in size. Esophagus is normal in caliber. No hiatal hernia. Bones and chest wall: No suspicious bony lesions. No vertebral body compression fractures. No axillary or supraclavicular adenopathy by size criteria. Thyroid gland unremarkable. Abdomen: In the visualized liver, there is suggestion of innumerable hypodense ill-defined nodules at the left and right lobes, however limited evaluation in the absence of IV contrast. Of note, on the prior study dated 12/31/16 these were not present. Similar-appearing lesions are now present in the spleen IMPRESSION: Interval progression in widespread subcentimeter bilateral pulmonary nodules with surrounding groundglass attenuation suggesting an infectious or inflammatory etiology. Septic emboli in the differential. Please correlate clinically. Small bilateral pleural effusions with adjacent atelectasis appear stable to mildly decreased. Trace pericardial effusion. Ill-defined nodules within the liver and spleen which appear new since prior study. The rapid development is suggestive of infection, possibly multiple micro -abscesses, such as candidiasis in the immunocompromised setting. Findings were personally telephoned to Dr. Hackett 01/03/17 1434 hours Dictated by: Paulino Joseph M.D. on 01/03/2017 at 13:25 Approved by: Paulino Joseph M.D. on 01/03/2017 at 14:34 Assessment & Plan Acute, active #Persistent neutropenic fever, POA, Initially thought due to suspected sinusitis based on imaging and nasal erythema on presentation. Patient has no symptoms at this point localizing infection source. CT chest and abd unrevealing. CT sinus consistent with sinusitis but no symptoms or sinus tenderness.previously consulted pulmonology and no bronchoscopy indicated, lungs do not seem to be the source although CT abd 12/31, 01/[address] showed newly developed multiple lung, liver, spleen nodules, consistent to systemic fungal infection-dominique, mucor. PICC line discontinued 01/01, tip culture ngtd. serial BCX ngtd. fungal culture/Fungiteil 01/03 sent. -pt is clinically stable, fever trends are better with less frequent fever, PCT is trending down, clinically looked better. -follow up with ID Dr Hackett and oncology , -- Treated with meropenem 2g q8h and vancomycin for about a week /since admission. ID switched antibiotics to ceftaroline and ciprofloxacin by mouth . Given concern for systemic fungal infection, started Cresemba ( isavuconazonium) for broad coverage, added micafungin -appreciate for BAL 01/07, awaits final result of BAL, viral PCR neg. AFB/CMV/PCP pending -deferred ENT consult for sinus discharge, as pt is not symptomatic, discussed with , stopped standing Afrin bid today. -Please consider repeat CT chest abd pelvis tomorrow to see interval progression /improvement of nodules #chronic anemia, thrombocytopenia, neutropenia POA, -ANC improving, PLT stable, no signs of active bleeding -with AML in remission, s/p consolidation chemo of 5days of idarubicin IV, cytarabine (SIMÓN-C) 12/14. s/p 2units pRBC, 2PLT 12/23 -appreciate for blood products, further management, -- per Dr. Balbuena's prev notes, "transfusions with irradiated leuko-poor blood products for hematocrit less than 25% and platelets less than 15,000.": -- Gave 2 units of PRBC 12/24.transfusion of 2PRBC and 2 platelets on 12/27 s/p [id number] 01/07 #mild hypochloremic hyponatremia, 01/04-, pt seemed mildly hypovolemic, will do trial of IVF, start NS 100cc/hr today, please readjust rate tomorrow based on Na level chronic, stable, resolved # Brief New onset Afib on 12/27,resolved -Patient had episode of atrial fibrillation with RVR for 2 hrs on 12/27. Resolved after Cardizem -Patient on Cardizem by mouth for hypertension. No history of atrial fibrillation -TSH WNL # AML -Dr Balbuena following # Fluid overload, resolved -Patient had 6 kg weight gain since admission. Diuresed with IV Lasix. Responded well. Discontinue Lasix # hypertension, continue patient's home medication Cardizem # insomnia chronic, At bedtime melatonin, Ativan PO when necessary home med Prophylaxis:SCD dispo: pending, likely prolonged, coordinate with ID, Onc diet:general diet Full code VTE Prophylaxis: Other (not indicated, platelets too low) VTE Mechanical Devices: Intermittant Pneumatic CD Resuscitation Status: CPR: Attempt Resuscitation Time spent 35min Eben Lucio MD January 09, 2017 09:36
--- NOTE | 2017-01-09 10:58 | NUR ---
JOANNA Signed JAZMIN Toscano
--- NOTE | 2017-01-09 13:06 | NUR ---
afebrile has not been taking Tylenol this shift and still not febrile, feeling a little better today, he already walked 4 laps, yesterday he only felt like walking about 200ft. Lungs sounds clear, no coughing or congestion noted
--- NOTE | 2017-01-09 14:17 | PROG NOTE ---
[address] [address] PROGRESS NOTE PATIENT: JEFF AMEZCUA : 1945 MR#: [id number] ADMIT: 12/24/2016 JOB ID: [id number] DATE: 01/09/2017 REASON FOR FOLLOWUP: Persistent fevers after recovery from neutropenia. INTERVAL HISTORY: Over the past 48 hours since I last saw the patient, he has continued to have episodic high fever spikes with rigors and generalized malaise. He and his believe that the height and severity of his fevers is diminishing since the institution of the dual antifungal therapy, but the episodes are still quite severe when they occur. Today, he feels a bit washed out and tired but states that his mental clarity seems better than it has been the last couple days when he has felt foggy. He has no headache or sore throat. He denies any significant cough, shortness of breath, chest pain, nausea, vomiting, or diarrhea. His main problem is just the recurrent fevers and the persistent and severe fatigue. PHYSICAL EXAMINATION: The patient defervesced starting on January 06 and was afebrile for about 36 hours but since then has had three or four major temperature spikes including 38.6 earlier this morning. At this moment, he is 37.1. Blood pressure has been stable, 123/68, pulse in the 70s, respiratory rate in the teens. He is saturating well on room air. The patient is in no acute distress but appears exhausted. Eyes: With mild conjunctival pallor. Oral cavity without thrush or hairy leukoplakia. Lungs clear posteriorly. Cardiac tones: Regular rate and rhythm without murmur. Abdomen is soft and nontender and there is no organomegaly. LABORATORIES: Include a white count which has now rallied all the way up to normal, 4500 with 82% segs. Platelets still low, bouncing between 25 and 40,000. Hematocrit stable at 26, creatinine 0.47. LFTs are normal. Procalcitonin 0.73. Urinalysis without white cells. The last Fungitell was 45, which is still in the normal range but higher than the first several we had which were negative, below 31. Micro studies include almost innumerable routine and fungal blood cultures, all negative. The pleural fluid from the bronch wash on January 07 is pending and what is pending is multiple PCRs for bacteria, fungi and AFB as well as the AFB stains, Legionella culture and routine culture. The routine culture on the bronch wash negative. No new imaging in the past three days. IMPRESSION: This is an incredibly complicated gentleman who developed febrile neutropenia after consolidation chemotherapy for his acute myeloid leukemia. This was obviously due to a methicillin-resistant Staphylococcus aureus vestibulitis and nasal infection which was very impressive when he was first admitted and neutropenic. During the early days of his hospital stay, he gradually resolved his neutropenia and with the aid of anti-MRSA antibiotics, his nasal inflammation resolved and he appeared almost ready to go home, but then started spiking high fevers, recrudescent high fevers. The nature of these is unknown but imaging has shown numerous small pulmonary noncavitating nodules as well as now the development of nodules in the liver and spleen. The differential diagnosis includes a course of hepatosplenic candidiasis but the pulmonary nodules may be unrelated or though we may be dealing with some completely different process other than hepatosplenic candidiasis which is responsible for the nodules in the liver, spleen and lung exist. RECOMMENDATIONS: 1. Will continue with Cresemba and IV micafungin. 2. We await the multiple pending studies. 3. I do not see a reason to broaden or change his antibiotics as hopefully will have back PCR results tomorrow or the next day. 4. If the PCR and other studies and the bronch are nondiagnostic, will need to reimage chest, abdomen and pelvis with CT scan to see if the nodules are getting bigger or smaller. If they are bigger or maybe even of they are the same will need to pursue a biopsy of the lung and/or the liver to try and make a definitive diagnosis. If they are improving on our empiric antifungal drugs, I would just continue, but the difficult part will be which drug and for how long. Thank you very much.
--- NOTE | 2017-01-09 14:27 | NUR ---
fever again Pt started having chills, but was afebrile, within 1/2 hour his fever increased to 38.9 from 36.8, Ibuprofen had been given
[2017-01-09] MEDS: Micafungin Inj 150 MG in 0.9% Sodium Chloride 100 ML IV SCH (16:02)
[2017-01-09] MEDS: LORazepam 1 mg Tablet PO SCH (21:29)
[2017-01-10] VITALS (9 sets, daily range): BP systolic 136–172; BP diastolic 72–83; PULSE 67–84; RESP 16–20; O2SAT 96–98
--- NOTE | 2017-01-10 05:34 | NUR ---
Afebrile Has been afebrile all shift, no chills or rigors, Tylenol given at 0100 per pt request for preventive measure. B/P has been elevated, notified. Hourly rounding ongoing.
[2017-01-10] MEDS: Pantoprazole 40 mg ER24 Tablet PO SCH (06:33)
[2017-01-10 06:35] LABS: Mean Corpuscular Hemoglobin 30.1 pg (27.0-35.0); Mean Corpuscular Volume 90.7 fL (81-100); Platelet Count 23 bil/L (150-400)
[2017-01-10 06:36] LABS: Magnesium 1.5 mg/dL (1.6-2.6); Phosphorus 3.6 mg/dL (2.5-4.9)
[2017-01-10 07:52] LABS: BASOPHILS % (AUTO) 0 % (0-3); EOSINOPHILS % (AUTO) 0 % (0-5); MONOCYTES % (AUTO) 12.2 % (4-12); NEUTROPHILS % (AUTO) 75.8 % (40-74)
[2017-01-10] MEDS: 0.9% Sodium Chloride 1,000 ML IV SCH ×3 (08:01→22:20)
[2017-01-10] MEDS: Diltiazem CD 120 mg ER24 Capsule PO SCH (08:47)
[2017-01-10] MEDS: Mupirocin 2% 22 Gm Ointment NASAL SCH ×2 (08:53→20:57)
[2017-01-10] MEDS: 0.9% Sodium Chloride 250 ML IV SCH (09:00)
[2017-01-10] MEDS: Omega-3 Fatty Acids 1,000 mg Capsule PO SCH (10:02)
--- NOTE | 2017-01-10 10:48 | PROG NOTE ---
[address] [address] PROGRESS NOTE PATIENT: JEFF AMEZCUA : 1945 MR#: [id number] ADMIT: 12/24/2016 JOB ID: [id number] DATE: 01/10/2017 REASON FOR FOLLOW UP: Spiking fever in an AML patient who has now recovered from his neutropenia. The patient continues to have debilitating fever and chill paroxysms which occur almost daily. These high spiking fevers leave the patient profoundly fatigued and lethargic. He is currently very tired this morning and prefers to just sleep rather than interact which is unusual for him. He reports that he is fully oriented, but appears withdrawn and perhaps somewhat depressed. He denies this morning focal symptoms except for some mild left upper quadrant pain which is relatively new and this sounds to be mild. It is noted that he does have fevers, chills, headaches, cough, and malaise during this febrile paroxysms, but in between these paroxysms he feels reasonably well though just tired. PHYSICAL EXAMINATION: Reveals temperature 36.6, his last fever spike was yesterday afternoon when he had a sustained spike that went as high as 39.2 and lasted a couple hours. Pulse 82, respiratory rate 18, blood pressure 172/83. He is saturating well on room air. He is lying in bed, appears somewhat depressed, but he can be awakened. He is alert and oriented. Oral cavity negative. Lungs relatively clear. Cardiac tones regular rate and rhythm. Abdomen without hepatosplenomegaly. No real tenderness, but some very mild left upper quadrant tenderness below the level of the spleen. No skin rashes noted. LABORATORIES: Include a white count 3700 today, 75% segs for a total neutrophil count of approximately 3000, platelets low at 23,000 hematocrit 24 and slipping slowly. Creatinine 0.53. LFTs normal except for an alk phos 162. Fungitell from the is still pending. The Fungitell from the was 45. Micro studies include negative blood cultures from the . The studies from the bronch wash are still largely pending including PCRs for AFB fungus and bacteria which we expect the results of tomorrow January 11. The remainder of the many, many blood cultures and other studies we have seen are negative except for the MRSA positive nasal swab. Imaging has not been repeated in a week now, and we have just ordered a CT scan without contrast of the chest, abdomen, and pelvis. IMPRESSION: This remains an extremely perplexing case of a gentleman who became neutropenic with consolidation therapy for his acute myeloid leukemia and then developed fevers while neutropenic. These fevers were initially obviously due to very impressive methicillin resistant Staphylococcus aureus infection of his nose which resolved with appropriate therapy, but he was left with spiking fevers which have now continued more than 10 days beyond the time of recovery of his white count. Initially the source of the fevers was unknown, but we did eventually discover small pulmonary nodules on a CT scan. At that time of that CAT scan there were no liver or splenic nodules, but on a follow-up CT scan of the chest on January 03 we saw not only enlarging, though still small pulmonary nodules, but solid liver and spleen changes consistent with hepatic splenic candidiasis. The patient was started on Cresemba 8 days ago and the next day micafungin was added. The thought was that Cresemba would cover mucor which could be a possibility in the lungs and that micafungin would be a first-line agent for hepatosplenic candidiasis, though of course Cresemba would also have anti-candidal activity. Unfortunately despite the stool antifungal therapy the patient continues to spike high fevers more than a week into the dual treatment. Hepatosplenic candidiasis by itself can produce fevers that can extend for weeks and so we are uncertain as to whether we are having a positive impact or not, but the patient is becoming increasingly debilitated and we have no tissue or blood confirmation of diagnosis. Our last Fungitell level was basically normal. Many fungal blood cultures are negative, and we have no biopsy material. We have pinned our hopes currently on the bronch wash that was done on Tuesday, and we await the PCR studies from that. RECOMMENDATIONS: 1. Will continue with Cresemba and micafungin. 2. CT of the chest, abdomen, and pelvis without contrast will be done. Note that the nodules have been well seen in both the liver, spleen, and lungs without contrast. 3. If the nodules are longer, I think will need to seriously consider either lung or liver biopsy to try and get some material for culture and PCR. If the nodules are smaller than will hold in there with our current therapy while we await the PCR studies. 4. This case is discussed in detail with the patient and his .
--- NOTE | 2017-01-10 14:33 | DRSVH ---
PROCEDURE: CT CHEST, ABDOMEN AND PELVIS WITHOUT CONTRAST ([id number]) INDICATIONS: follow up pulmonary and hepatosplenic nodules TECHNIQUE: After the administration of oral contrast, 5 mm thick sections acquired from the lung apices to the s ymphysis pubis. 5 mm thick coronal and sagittal reformats acquired, with additional 7 mm coronal MIP reformats through the lungs. For radiation dose reduction, the following was used: automated expos ure control, adjustment of mA and/or kV according to patient size. COMPARISON: [facility], CT, CT CHEST WO CON, 01/03/2017, 12:53. [facility], CT, CT ABD PELVIS W CON, 12/31/2016, 12:11. FINDINGS: Image quality: Excellent. CHEST: Lungs and pleura: Previously seen pulmonary nodules have decreased slightly in number and size compar ed to the prior examination. No new pulmonary nodules are present. No pneumothoraces. Small bilateral pleural effusions are present, as before. Central and peripheral airways are patent are normal in ca liber. Mediastinum: Heart size is normal. Slight increase in small pericardial effusion. No mediastinal ad enopathy by CT size criteria. Thoracic aorta and central pulmonary arteries are normal in size. Eso phagus is normal in caliber. No hiatal hernia. Chest wall: No axillary or supraclavicular adenopathy by size criteria. Thyroid gland is within nor mal limits. ABDOMEN: Solid organs: Liver and spleen are normal in size. Multiple low density hepatic lesions are not sig nificantly changed, as visualized. Multiple small low-density splenic lesions are not significantly c hanged. Gallbladder is within normal limits. Pancreas is normal in contours. No adrenal nodules. B oth kidneys are normal in size, without hydronephrosis or nephrolithiasis. Peritoneum and bowel: Small and large bowel loops are normal in caliber and wall thickness. No pneu moperitoneum. There is a small amount of ascites, increased from the prior examination. Nodes and vessels: No retroperitoneal or mesenteric adenopathy by size criteria. Aorta and inferior vena cava are normal in size. Miscellaneous: No ventral hernias. PELVIS: Genitourinary: Bladder wall thickness is normal. Miscellaneous: No inguinal hernias or adenopathy. Bones: No suspicious bony lesions. No vertebral body compression fractures. IMPRESSION: 1. Slight decrease in pulmonary nodules. 2. No significant change in hepatosplenic nodules. 3. No change in small bilateral pleural effusions. 4. Increased, small amount of ascites. 5. Increased, small pericardial effusion. Dictated by: Karen Mccain M.D. on 01/10/2017 at 13:56 Approved by: Karen Mccain M.D. on 01/10/2017 at 14:31
--- NOTE | 2017-01-10 14:37 | PROG NOTE ---
[address] [address] PROGRESS NOTE PATIENT: JEFF AMEZCUA : 1945 MR#: [id number] ADMIT: 12/24/2016 JOB ID: [id number] DATE: 01/10/2017 SUBJECTIVE: The patient is a 71-year-old gentleman with acute myelogenous leukemia, status post induction, re-induction, and consolidation chemotherapy with leonor-C and idarubicin. Post chemotherapy neutropenia has fully resolved. He is hospitalized with ongoing fevers. Blood cultures have been negative during this hospitalization for bacteria or viral infections. Imaging has shown abnormalities in the sinuses and numerous subcentimeter pulmonary nodules and ill-defined liver and spleen nodules. He underwent bronchoscopy last Tuesday, January 07, 2017. Results from that procedure are not yet available. He had significant fevers through the weekend, with a T-max of 39.3 yesterday afternoon. He feels quite fatigued. OBJECTIVE: Vitals: T 37.3, P 80, R 16, BP 171/75. O2 saturation 97% on room air. HEENT: Conjunctivae pale. Mucous membranes moist. No oral lesions. Nodes: No adenopathy in the neck or axilla. Chest: Basilar crackles. Cardiac exam: Regular rate and rhythm with normal S1, S2. Abdomen: Soft, nontender, with normoactive bowel tones. No splenomegaly or masses. Extremities: Trace pedal edema, 1+ distal pulses. LABORATORIES: WBC 3.7 with 76% neutrophils, 12% lymphocytes, 12% monocytes, hemoglobin 7.8, hematocrit 23.5%, platelets 23,000. Sodium 134, potassium 3.2, BUN 11, creatinine 0.53, glucose 129, AST 22, ALT 33, alkaline phosphatase 162. ASSESSMENT AND PLAN: Acute myelogenous leukemia, status post induction, re-induction, and consolidation chemotherapy with leonor-C and idarubicin: The patient is in clinical complete remission. Bone marrow studies after re-induction chemotherapy confirmed remission, and he then received consolidation therapy. He still has pancytopenia but no definite indication for transfusion support today, although I would continue to monitor daily CBC, differential, and platelets. Transfuse if he develops symptomatic anemia/thrombocytopenia. Otherwise, continue to monitor. Ongoing fevers in the setting of resolved neutropenia and numerous bilateral pulmonary nodules and liver/spleen nodules are worrisome for fungal disease in the setting of immunosuppression. Await results of bronchoscopy which was performed by Dr. Farris, on January 07, 2017. The patient remains on Cresemba and micafungin. Repeat CT imaging of chest, abdomen, and pelvis to reassess the status of his nodules. If cultures remain negative, consider biopsy of one two of the most accessible lesions to help guide ongoing therapy.
[2017-01-10] MEDS: Micafungin Inj 150 MG in 0.9% Sodium Chloride 100 ML IV SCH (16:09)
--- NOTE | 2017-01-10 16:50 | NUR ---
Afebrile Pt without a fever throughout shift today. Pt started to get the chills with breakfast and was given Tylenol; chills never turned into him becoming diaphoretic and/or feverish. Pt again began to get the chills at 1400 and was given Motrin and this resolved. Will continue to monitor closely for fevers and chills.
--- NOTE | 2017-01-10 17:32 | PCM.PNMED ---
Subjective Date of Service January 10, 2017 Subjective Very tired, had some fevers overnight, no chest pain or dyspnea no nausea or vomiting Exam Vital Signs Vital Sign - Last Date Time Temp Pulse Resp B/P Pulse Ox O2 Delivery O2 Flow Rate FiO2 01/10/17 16:22 36.8 67 18 136/72 97 Room Air 01/07/17 16:24 1 Intake and Output 01/09/17 01/09/17 01/10/17 Cumulative From/Thru 15:00 23:00 07:00 12/24/16 10:16 - 01/10/17 06:35 Intake Total 1736 ml 2061 ml 92269 ml Output Total 1100 ml 2400 ml 95506 ml Balance 636 ml -339 ml 24772 ml Intake Oral 1736 ml 850 ml 65236 ml IV Total 1211 ml 10097 ml Packed Cells 1500 ml Platelets 768 ml Output Urine Total 1100 ml 2400 ml 13633 ml # Voids 13 # Bowel Movements 0 0 4 Exam Gen.- A+ O 3 no apparent distress. Somewhat drowsy but pleasant Eyes- open conjunctiva clear, pupils equal nonicteric ENT- ears normal, nose normal Neck- supple/trach midline CVS- RRR no murmur or gallop Lungs- CTA GI- NABS/NT soft Musc- moving 4 no obvious deformity Neuro- cranial nerves II through XII intact to gross examination, nonfocal Skin- warm and dry, no rashes/lesions/wounds noted Psych- pleasant and appropriate, Lab and Diagnostics Result Diagram: 01/10/17 0532 01/10/17 0532 X-Rays, CTs and MRIs PROCEDURE: X-RAY CHEST, TWO VIEWS ([id number]) INDICATIONS: Cough and fever TECHNIQUE: 2 views of the chest were acquired. COMPARISON: [facility], CT, CT CHEST WO CON, 12/28/2016, 12:29. [facility], CR, XR CHEST 1VW, 12/30/2016, 18:01. [facility], CR, XR CHEST 2VW, 12/28/2016, 9:43. FINDINGS: Surgical changes and devices: None. Lungs and pleura: There are persistent small bilateral pleural effusions. There are scattered indistinct small nodular opacities redemonstrated bilaterally, similar in appearance to the prior studies. Mediastinum: Mediastinal contours are normal. Heart size is normal. Bones and chest wall: No suspicious bony abnormalities. Soft tissues appear unremarkable. IMPRESSION: 1. Persistent small pleural effusions and scattered indistinct nodular opacities similar in appearance to the prior studies. Dictated by: Steve Brand M.D. on 01/02/2017 at 9:47 Approved by: Steve Brand M.D. on 01/02/2017 at 9:48 PROCEDURE: CT CHEST WITHOUT CONTRAST ([id number]) INDICATIONS: F/U pulm nodules-AML with fever TECHNIQUE: Noncontrast 5 mm thick sections acquired from the pulmonary apices to the posterior costophrenic angles. 7 mm thick coronal and sagittal MIP reformats were then acquired. For radiation dose reduction, the following was used: automated exposure control, adjustment of mA and/or kV according to patient size. COMPARISON: [facility], CT, CT ABD PELVIS W CON, 12/31/2016, 12:11. [facility], CT, CT CHEST WO CON, 12/28/2016, 12:29. FINDINGS: Image quality: Excellent. Lungs and pleura: Small bilateral pleural effusions with adjacent atelectasis. Scattered subcentimeter bilateral widespread pulmonary nodules, demonstrating mild surrounding groundglass. There is diffuse, mild interval increase in size and conspicuity since the prior study dated 12/28/16. For example pleural based nodules on image 27 in the left upper lobe measures 8 mm, previously 2 mm. Mediastinum: Heart size is normal. There is trace pericardial effusion. No mediastinal adenopathy by size criteria. Thoracic aorta and central pulmonary arteries are normal in size. Esophagus is normal in caliber. No hiatal hernia. Bones and chest wall: No suspicious bony lesions. No vertebral body compression fractures. No axillary or supraclavicular adenopathy by size criteria. Thyroid gland unremarkable. Abdomen: In the visualized liver, there is suggestion of innumerable hypodense ill-defined nodules at the left and right lobes, however limited evaluation in the absence of IV contrast. Of note, on the prior study dated 12/31/16 these were not present. Similar-appearing lesions are now present in the spleen IMPRESSION: Interval progression in widespread subcentimeter bilateral pulmonary nodules with surrounding groundglass attenuation suggesting an infectious or inflammatory etiology. Septic emboli in the differential. Please correlate clinically. Small bilateral pleural effusions with adjacent atelectasis appear stable to mildly decreased. Trace pericardial effusion. Ill-defined nodules within the liver and spleen which appear new since prior study. The rapid development is suggestive of infection, possibly multiple micro -abscesses, such as candidiasis in the immunocompromised setting. Findings were personally telephoned to Dr. Hackett 01/03/17 1434 hours Dictated by: Paulino Joseph M.D. on 01/03/2017 at 13:25 Approved by: Paulino Joseph M.D. on 01/03/2017 at 14:34 Assessment & Plan 71-year-old male admitted 12/24 with neutropenic fever. 01/10 eating this medically complex patient at high risk for complications first time during this hospitalization. # fever, Initially thought due to sinusitis. Patient has no symptoms at this point localizing infection source. -CT chest and abd unrevealing. CT sinus consistent with sinusitis but no symptoms or sinus tenderness.previously consulted pulmonology and no bronchoscopy indicated, lungs do not seem to be the source although CT abd 12/31 , 01/[address] showed newly developed multiple lung, liver, spleen nodules, consistent to systemic fungal infection-dominique, mucor. PICC line discontinued 01/01, tip culture ngtd. serial BCX ngtd. fungal culture/Fungiteil 01/03 sent. -follow up with ID Dr Hackett and oncology , -- Treated with meropenem 2g q8h and vancomycin for about a week /since admission. ID switched antibiotics to ceftaroline and ciprofloxacin by mouth . Given concern for systemic fungal infection, started Cresemba ( isavuconazonium) for broad coverage, added micafungin -appreciate for BAL 01/07, awaits final result of BAL, viral PCR neg. AFB/CMV/PCP pending -deferred ENT consult for sinus discharge, as pt is not symptomatic, discussed with , stopped standing Afrin bid today. -repeat CT chest abd pelvis to see interval progression/improvement of nodules #anemia, thrombocytopenia, neutropenia POA, -ANC improving, PLT stable, no signs of active bleeding -with AML in remission, s/p consolidation chemo of 5days of idarubicin IV, cytarabine (SIMÓN-C) 12/14. s/p 2units pRBC, 2PLT 12/23 -appreciate for blood products, further management, -- per Dr. Balbuena's prev notes, "transfusions with irradiated leuko-poor blood products for hematocrit less than 25% and platelets less than 15,000.": -- Gave 2 units of PRBC 12/24.transfusion of 2PRBC and 2 platelets on 12/27 s/p [id number] 01/07 #mild hypochloremic hyponatremia, 01/04-, pt seemed mildly hypovolemic, will do trial of IVF, start NS 100cc/hr today, please readjust rate tomorrow based on Na level # pAfib seen 12/27 none further -Patient had episode of atrial fibrillation with RVR for 2 hrs on 12/27. Resolved after Cardizem -Patient on Cardizem by mouth for hypertension. No history of atrial fibrillation -TSH WNL # AML -Dr Balbuena following # hypertension, continue patient's home medication Cardizem # insomnia chronic, At bedtime melatonin, Ativan PO when necessary home med Prophylaxis:SCD dispo: pending, likely prolonged, coordinate with ID, Onc diet:general diet Full code VTE Prophylaxis: Other (not indicated, platelets too low) VTE Mechanical Devices: Intermittant Pneumatic CD Resuscitation Status: CPR: Attempt Resuscitation Vlad Renner MD January 10, 2017 17:32
[2017-01-10] MEDS: LORazepam 1 mg Tablet PO SCH (20:57)
[2017-01-11] VITALS (9 sets, daily range): BP systolic 132–173; BP diastolic 74–84; PULSE 65–145; RESP 16; O2SAT 97–99
--- NOTE | 2017-01-11 04:34 | NUR ---
Fever / Tele Temp andrew during evening, did not respond very well to Tylenol. Pt did not develop rigors or chills. Tele monitor reported one run of tachycardia which resolved spontaneously; B/Ps have been elevated similar to other times that fever developed. Supportive care given, hourly rounding ongoing.
[2017-01-11] MEDS: Pantoprazole 40 mg ER24 Tablet PO SCH (05:53)
[2017-01-11 06:13] LABS: BASOPHILS % (AUTO) 0.2 % (0-3); EOSINOPHILS % (AUTO) 0 % (0-5); MONOCYTES % (AUTO) 7.8 % (4-12); Mean Corpuscular Hemoglobin 29.9 pg (27.0-35.0); Mean Corpuscular Volume 90.4 fL (81-100); NEUTROPHILS % (AUTO) 77.1 % (40-74)
[2017-01-11 06:17] LABS: Platelet Count 28 bil/L (150-400)
[2017-01-11 06:25] LABS: Magnesium 1.4 mg/dL (1.6-2.6); Phosphorus 3.4 mg/dL (2.5-4.9)
--- NOTE | 2017-01-11 07:45 | PROG NOTE ---
[address] [address] PROGRESS NOTE PATIENT: JEFF AMEZCUA : 1945 MR#: [id number] ADMIT: 12/24/2016 JOB ID: [id number] DATE: 01/11/2017 SUBJECTIVE: The patient is a 71-year-old gentleman with acute myelogenous leukemia, status post induction, re-induction and consolidation chemotherapy with leonor-C and idarubicin. Post chemotherapy neutropenia has resolved, but he continues to have ongoing fevers. Last night his temperature was up to 38.5 degrees centigrade. He did not have any shaking chills. He notes increased cough, which is nonproductive. OBJECTIVE: Vitals: T max 38.5, P 86, R 16, BP 158/83, O2 saturation 97% on room air. HEENT: Conjunctivae are pale. Mucous membranes moist. No oral lesions. Nodes: No adenopathy in the neck, axilla or groin. Chest is clear. Cardiac exam: Regular rate and rhythm with normal S1, S2. Abdomen: Soft, nontender, with normoactive bowel tones. No splenomegaly or masses. Extremities: No edema, 2+ distal pulses. No calf tenderness. LABORATORIES: WBC 4.2, hemoglobin 7.8, hematocrit 23.6%, platelets 28,000. Sodium 133, potassium 3.1, BUN 7, creatinine 0.56, glucose 113. Calcium 8.5, phosphorus 3.4, magnesium 1.4. AST 26, ALT 36, alkaline phosphatase 174. IMAGING: (January 10, 2017) CT of the chest, abdomen and pelvis without contrast shows slight decrease in pulmonary nodules but no change in hepatosplenomegaly nodules. ASSESSMENT AND PLAN: Acute myelogenous leukemia, status post induction, re-induction and consolidation chemotherapy with leonor-C and idarubicin: Clinically, the patient is in complete remission based on bone marrow studies after re-induction chemotherapy. Neutropenia following consolidation therapy has resolved, but he remains pancytopenic. Consider transfusion support with 2 units packed red blood cells if he becomes more symptomatic. However, at this time he does not exhibit any significant shortness of breath, although he is a bit fatigued. Platelets are stable with no indication for platelet transfusion at this time. As for his ongoing fevers in the setting of bilateral pulmonary nodules and hepatosplenomegaly nodules, CT imaging yesterday shows a slight improvement in the pulmonary nodules and stable hepatosplenic nodules. Continue present Cresemba and micafungin per Dr. Hackett. Microbiology evaluation of bronchial washings is negative by PCR for most viral studies. Testing for Legionella, tuberculosis, pneumocystis, varicella-zoster, CMV and fungal cultures are still pending, and could influence subsequent management. MTDD
[2017-01-11] MEDS: 0.9% Sodium Chloride 1,000 ML IV SCH ×2 (10:02→14:57)
[2017-01-11] MEDS: Diltiazem CD 120 mg ER24 Capsule PO SCH (10:09)
[2017-01-11] MEDS: Omega-3 Fatty Acids 1,000 mg Capsule PO SCH (10:09)
[2017-01-11] MEDS: Mupirocin 2% 22 Gm Ointment NASAL SCH ×2 (10:10→21:10)
--- NOTE | 2017-01-11 10:46 | PROG NOTE ---
[address] [address] PROGRESS NOTE PATIENT: JEFF AMEZCUA : 1945 MR#: [id number] ADMIT: 12/24/2016 JOB ID: [id number] DATE: 01/11/2017 REASON FOR FOLLOW UP: Prolonged fever following recovery from chemotherapy-induced neutropenia in an AML patient. INTERVAL HISTORY: Overnight, the patient continued to have fevers but they were of lesser magnitude than previously. He also continues to feel "wiped out" after these fevers but that may be lifting a bit too. This morning, he is without fever or chills, just feeling a bit tired. No sweats. No significant cough. No chest pain, shortness of breath, or abdominal pain. PHYSICAL EXAMINATION: Reveals a gentleman who was febrile to 38.5 during the night, now 37.1, pulse 86, respiratory rate 16, blood pressure 158/83, saturating 97% on room air. In no acute distress. Examination of the mental status reveals it to be clear this morning. Eyes with pale conjunctivae. Oral cavity negative. Lungs relatively clear bilaterally. Cardiac tones without new murmur. Peripheral IV in the right arm appears benign. Abdomen soft and nontender. No hepatosplenomegaly. No rash. LABORATORIES: Include white count 4200, 77% segs, hematocrit 24, platelet count 28,000. Creatinine 0.56. LFTs normal except alk phos 174. Micro studies include more than a dozen negative routine and fungal blood cultures over the last couple of weeks. The PCR on the bronch wash is still pending. The bronch wash cultures from four days ago have some yeast in them, and I have asked the lab to identify these. While yeast are usually and found in the airway, in this case it is possible that he has hepatic splenic candidiasis with Sierra pulmonary nodules. Yesterday's CT scan of the chest, abdomen, and pelvis show that the pulmonary nodules are getting smaller, whereas the liver-spleen nodules are unchanged. There is a small amount of ascites and small pericardial effusion seen as well. IMPRESSION: This patient probably has hepatic splenic candidiasis and is starting to slowly respond to our dual azole/echinocandins therapy. His pulmonary nodules could represent Sierra, but this is unusual and I remain worried that there could be two processes including a remote possibility of Mucor or Nocardia in the lungs. RECOMMENDATIONS: 1. Will continue with the Cresemba once a day and micafungin once a day. 2. Continue to closely follow his vital signs and cultures. 3. We await the final identification of the organisms seen on the bronch wash as well as the PCR studies the bronch wash that was now done four days ago.
--- NOTE | 2017-01-11 15:36 | NUR ---
Fever/HR Pt starting having chills and temperature elevated. Tylenol given, warm blankets on pt and k-pad turned on for warmth too. Tele called that pt's HR was in 140's. MD's notified. Monitor HR and 2 sets of blood cultures ordered. HR decreased to 90's and pt's chills have stopped, resting more comfortably.
[2017-01-11] MEDS: Micafungin Inj 150 MG in 0.9% Sodium Chloride 100 ML IV SCH (15:54)
--- NOTE | 2017-01-11 16:00 | NUR ---
Social Work Note: Continued Discharge Planning Data& Assessment: Per pt is not medically ready for discharge at this time. ID is following. Pt to discharge home with to transport via POV. SW to continue to follow for medical readiness and in case any discharge needs arise. Plan: Per pt is not medically ready for discharge at this time. Anticipated discharge home via POV when medically ready. SW to continue to follow for medical readiness and in case any discharge needs arise. Caitlin Zepeda PLACEMENT MANAGER
--- NOTE | 2017-01-11 16:20 | NUR ---
NUTRITION FOLLOW-UP: ASSESS: 71 YO male admitted with recurrent neutropenic fevers s/p consolidative chemo. Pt with likely hepatic splenic candidiasis per notes. PO intake has declined a little recently with pt only eating 25-100% of meals. PMHX: AML, HTN, Diverticulitis LABS:Reviewed. Na 133, K+ 3.1, BUN 7, Cr .56, Glu 113, Mg 1.4, Alb 2.4. MEDS: Reviewed. GI: BM x 1 (01/10) CURRENT WTS: 76 kg. Wt appears stable as pt discharge wt was 71.4 on 11/23/16 and fluid overload is resolving per MD notes. DIET: General, Ensure all trays. PO intake 25-100% of most meals. EST. NEEDS: Wt gain. Kcals: 5114-4995 kcals/day (30-35 kcal/kg Current BW) Pro: 115-150 g/day (1.5-2.0 g/kg current BW) NUTRITION DIAGNOSIS: 1) Increased nutrient needs related to increased demand for nutrients as evidence by wt loss reported on prior admit-PERSISTS NUTRITION INTERVENTION: 1) Continue to send ensure on all trays to encourage wt maintenance/wt gain. MONITOR / EVAL: PO intake, labs, weights, and nutrition status. Will continue to monitor per low nutrition risk guidelines.
--- NOTE | 2017-01-11 17:25 | PCM.PNMED ---
Subjective Date of Service January 11, 2017 Subjective Feeling well, slept well in morning. No chest pain, no dyspnea, no new nausea vomiting. He and his are hopeful because he seemed to have had a lower fever yesterday and had a good day. Exam Vital Signs Vital Sign - Last Date Time Temp Pulse Resp B/P Pulse Ox O2 Delivery O2 Flow Rate FiO2 01/11/17 17:02 37.2 16 148/75 97 01/11/17 11:29 80 Room Air 01/07/17 16:24 1 Intake and Output 01/10/17 01/10/17 01/11/17 Cumulative From/Thru 14:59 22:59 06:59 12/24/16 10:16 - 01/11/17 05:54 Intake Total 2155 ml 1741 ml 44594 ml Output Total 1900 ml 1950 ml 32742 ml Balance 255 ml -209 ml 28817 ml Intake Oral 1440 ml 450 ml 56296 ml IV Total 715 ml 1291 ml 15203 ml Packed Cells 1500 ml Platelets 768 ml Output Urine Total 1900 ml 1950 ml 54515 ml # Voids 13 # Bowel Movements 1 0 5 Exam Gen.- A+ O 3 no apparent distress. Sitting up in bed Eyes- open conjunctiva clear, pupils equal nonicteric ENT- ears normal, nose normal Neck- supple/trach midline CVS-normal rate Lungs-regular rate no accessory muscle usage no evidence of respiratory distress GI- flat Musc- moving 4 no obvious deformity Neuro- cranial nerves II through XII intact to gross examination, nonfocal Skin- warm and dry, no rashes/lesions/wounds noted Psych- pleasant and appropriate, Lab and Diagnostics Result Diagram: 01/11/17 0535 01/11/17 0535 X-Rays, CTs and MRIs PROCEDURE: X-RAY CHEST, TWO VIEWS ([id number]) INDICATIONS: Cough and fever TECHNIQUE: 2 views of the chest were acquired. COMPARISON: [facility], CT, CT CHEST WO CON, 12/28/2016, 12:29. [facility], CR, XR CHEST 1VW, 12/30/2016, 18:01. [facility], CR, XR CHEST 2VW, 12/28/2016, 9:43. FINDINGS: Surgical changes and devices: None. Lungs and pleura: There are persistent small bilateral pleural effusions. There are scattered indistinct small nodular opacities redemonstrated bilaterally, similar in appearance to the prior studies. Mediastinum: Mediastinal contours are normal. Heart size is normal. Bones and chest wall: No suspicious bony abnormalities. Soft tissues appear unremarkable. IMPRESSION: 1. Persistent small pleural effusions and scattered indistinct nodular opacities similar in appearance to the prior studies. Dictated by: Steve Brand M.D. on 01/02/2017 at 9:47 Approved by: Steve Brand M.D. on 01/02/2017 at 9:48 PROCEDURE: CT CHEST WITHOUT CONTRAST ([id number]) INDICATIONS: F/U pulm nodules-AML with fever TECHNIQUE: Noncontrast 5 mm thick sections acquired from the pulmonary apices to the posterior costophrenic angles. 7 mm thick coronal and sagittal MIP reformats were then acquired. For radiation dose reduction, the following was used: automated exposure control, adjustment of mA and/or kV according to patient size. COMPARISON: [facility], CT, CT ABD PELVIS W CON, 12/31/2016, 12:11. [facility], CT, CT CHEST WO CON, 12/28/2016, 12:29. FINDINGS: Image quality: Excellent. Lungs and pleura: Small bilateral pleural effusions with adjacent atelectasis. Scattered subcentimeter bilateral widespread pulmonary nodules, demonstrating mild surrounding groundglass. There is diffuse, mild interval increase in size and conspicuity since the prior study dated 12/28/16. For example pleural based nodules on image 27 in the left upper lobe measures 8 mm, previously 2 mm. Mediastinum: Heart size is normal. There is trace pericardial effusion. No mediastinal adenopathy by size criteria. Thoracic aorta and central pulmonary arteries are normal in size. Esophagus is normal in caliber. No hiatal hernia. Bones and chest wall: No suspicious bony lesions. No vertebral body compression fractures. No axillary or supraclavicular adenopathy by size criteria. Thyroid gland unremarkable. Abdomen: In the visualized liver, there is suggestion of innumerable hypodense ill-defined nodules at the left and right lobes, however limited evaluation in the absence of IV contrast. Of note, on the prior study dated 12/31/16 these were not present. Similar-appearing lesions are now present in the spleen IMPRESSION: Interval progression in widespread subcentimeter bilateral pulmonary nodules with surrounding groundglass attenuation suggesting an infectious or inflammatory etiology. Septic emboli in the differential. Please correlate clinically. Small bilateral pleural effusions with adjacent atelectasis appear stable to mildly decreased. Trace pericardial effusion. Ill-defined nodules within the liver and spleen which appear new since prior study. The rapid development is suggestive of infection, possibly multiple micro -abscesses, such as candidiasis in the immunocompromised setting. Findings were personally telephoned to Dr. Hackett 01/03/17 1434 hours Dictated by: Paulino Joseph M.D. on 01/03/2017 at 13:25 Approved by: Paulino Joseph M.D. on 01/03/2017 at 14:34 Assessment & Plan 71-year-old male admitted 12/24 with neutropenic fever. 01/10 eating this medically complex patient at high risk for complications first time during this hospitalization. 01/11 patient slowly responding to treatment, thought is he is splenic candidiasis as well. Had a temperature spike with heart rate in the 140s, dose of Cardizem and heart rate improved and went back to normal. Expected timeline for treatment of fevers in this global process is measured in weeks. Hep locking IV fluids patient is 14.5 L fluid plus since admission. I have a low tolerance to transfuse again. #weakness/fatigue- transfuse 1U PRBCs 01/11 #Hypokalemia/hypomagnesemia-replaced/monitor #anemia, thrombocytopenia, neutropenia POA, -ANC improving, PLT stable, no signs of active bleeding -with AML in remission, s/p consolidation chemo of 5days of idarubicin IV, cytarabine (SIMÓN-C) 12/14. s/p 2units pRBC, 2PLT 12/23 -appreciate for blood products, further management, -- per Dr. Balbuena's prev notes, "transfusions with irradiated leuko-poor blood products for hematocrit less than 25% and platelets less than 15,000.": -- Gave 2 units of PRBC 12/24.transfusion of 2PRBC and 2 platelets on 12/27 s/p [id number] 01/07, 3rdU PRBCs 01/11 # fever, Initially thought due to sinusitis. Patient has no symptoms at this point localizing infection source. -CT chest and abd unrevealing. CT sinus consistent with sinusitis but no symptoms or sinus tenderness.previously consulted pulmonology and no bronchoscopy indicated, lungs do not seem to be the source although CT abd 12/31 , 01/[address] showed newly developed multiple lung, liver, spleen nodules, consistent to systemic fungal infection-dominique, mucor. PICC line discontinued 01/01, tip culture ngtd. serial BCX ngtd. fungal culture/Fungiteil 01/03 sent. -follow up with ID Dr Hackett and oncology , -- Treated with meropenem 2g q8h and vancomycin for about a week /since admission. ID switched antibiotics to ceftaroline and ciprofloxacin by mouth . Given concern for systemic fungal infection, started Cresemba ( isavuconazonium) for broad coverage, added micafungin -appreciate for BAL 01/07, awaits final result of BAL, viral PCR neg. AFB/CMV/PCP pending -deferred ENT consult for sinus discharge, as pt is not symptomatic, discussed with , stopped standing Afrin bid 01/09 -repeat CT chest abd pelvis 01/10 showed improvement of lung nodule spot stable liver nodules #mild hypochloremic hyponatremia, 01/04-, pt seemed mildly hypovolemic, will do trial of IVF, start NS 100cc/hr today, please readjust rate tomorrow based on Na level # pAfib seen 12/27 none further -Patient had episode of atrial fibrillation with RVR for 2 hrs on 12/27. Resolved after Cardizem -Patient on Cardizem by mouth for hypertension. No history of atrial fibrillation -TSH WNL # AML -Dr Balbuena following # hypertension, continue patient's home medication Cardizem # insomnia chronic, At bedtime melatonin, Ativan PO when necessary home med Prophylaxis:SCD dispo: pending, likely prolonged, coordinate with ID, Onc diet:general diet Full code VTE Prophylaxis: Other (not indicated, platelets too low) VTE Mechanical Devices: Intermittant Pneumatic CD Resuscitation Status: CPR: Attempt Resuscitation Vlad Renner MD January 11, 2017 17:25
[2017-01-11] MEDS ORDERED: Magnesium Sulf 2 Gm/50mL Water 2 GM in IV Premix 1 EACH IV ONE (17:30)
[2017-01-11] MEDS: LORazepam 1 mg Tablet PO SCH (21:09)
[2017-01-12 00:29] VITALS: BP 149/79; PULSE 69; RESP 16
--- NOTE | 2017-01-12 03:50 | NUR ---
RBC infusion / afebrile Tolerated one unit RBC without incident. Given Motrin and Tylenol as preventive for fever per pt request; has been afebrile this shift. F/u am labs for post transfusion improvement. Hourly rounding ongoing.
[2017-01-12 06:22] VITALS: BP 160/77; PULSE 76; RESP 18; O2SAT 95
[2017-01-12 07:05] LABS: BASOPHILS % (AUTO) 0 % (0-3); EOSINOPHILS % (AUTO) 0 % (0-5); MONOCYTES % (AUTO) 8.6 % (4-12); Mean Corpuscular Volume 88.6 fL (81-100); NEUTROPHILS % (AUTO) 81.3 % (40-74)
[2017-01-12 07:07] LABS: Magnesium 1.7 mg/dL (1.6-2.6)
--- NOTE | 2017-01-12 07:38 | PROG NOTE ---
[address] [address] PROGRESS NOTE PATIENT: JEFF AMEZCUA : 1945 MR#: [id number] ADMIT: 12/24/2016 JOB ID: [id number] DATE: 01/12/2017 SUBJECTIVE: The patient is a 71-year-old gentleman with treated acute myelogenous leukemia, in remission. His current hospitalization began on December 24, 2016, when he was admitted with febrile neutropenia following consolidation chemotherapy with leonor-C and idarubicin. He has been on broad-spectrum antibiotics throughout his hospitalization, currently on antifungal coverage with Cresemba and micafungin. He continues to have fevers, up to 39.5 degrees centigrade yesterday afternoon. He had a positive culture for MRSA from a nasal lesion during this current hospitalization, but blood cultures have been negative. Previous Enterococcus faecalis in his urine and Pseudomonas aeruginosa in blood from cultures in September have not been evident during this current hospitalization. He has undergone bronchoscopy on January 07, 2017, but to date, his results have shown normal johnathan, with several additional fungal cultures, Pneumocystis, varicella, acid-fast bacteria and Legionella cultures pending. He received 1 unit of packed red blood cells last night. He is a bit tired this morning but otherwise comfortable. No shortness of breath. He has a mild nonproductive cough. OBJECTIVE: Vitals: T-max 39.5, P 76, R 18, BP 160/77. HEENT: Conjunctivae slightly pale. Mucous membranes moist. Chest: Basilar crackles. Cardiac exam: Regular rate and rhythm with normal S1, S2. Abdomen: Soft, nontender. Extremities: Trace edema. 2+ distal pulses. No calf tenderness. LABORATORIES: Labs pending. ASSESSMENT AND PLAN: Acute myelogenous leukemia, status post induction, re-induction, and consolidation chemotherapy with leonor-C and idarubicin. The patient's hematologic parameters following consolidation chemotherapy have been recovering, with normalization of his white count. He still requires occasional transfusion support with red cells and/or platelets. Continue to monitor hematologic parameters daily. There has been no evidence of recurrent atrial fibrillation, which affected him early in this hospitalization. He remains on diltiazem 120 mg by mouth daily. The greatest concern is his ongoing fevers. He had a high fever spike to 39.5 degrees yesterday afternoon, after a high fever spike to 39.3 degrees two days earlier. As above, blood cultures during this hospitalization have been negative. Nasal cultures were positive for methicillin-resistant Staphylococcus aureus (MRSA), but he had received a prolonged course of appropriate antibiotic therapy. Imaging has shown lesions in his lungs and spleen, likely fungal. Additional cultures from his bronchoscopy last Tuesday are still pending. Continue antibiotic coverage with micafungin and Cresemba. Appreciate input from Dr. Hackett and the hospitalist team.
[2017-01-12 07:46] LABS: Platelet Count 26 bil/L (150-400)
[2017-01-12] MEDS: Pantoprazole 40 mg ER24 Tablet PO SCH (10:21)
[2017-01-12] MEDS: Diltiazem CD 120 mg ER24 Capsule PO SCH (10:21)
[2017-01-12] MEDS: Omega-3 Fatty Acids 1,000 mg Capsule PO SCH (10:22)
--- NOTE | 2017-01-12 10:47 | PROG NOTE ---
[address] [address] PROGRESS NOTE PATIENT: JEFF AMEZCUA : 1945 MR#: [id number] ADMIT: 12/24/2016 JOB ID: [id number] DATE: 01/12/2017 INFECTIOUS DISEASE FOLLOWUP NOTE: REASON FOR FOLLOWUP: Persistent spiking fevers in a patient with covered neutropenia and liver, spleen and lung lesions. INTERVAL HISTORY: The patient had more high-spiking fevers yesterday afternoon with chills and profound fatigue. This was also accompanied by tachypnea and tachycardia as these episodes usually are. Following the resolution of the fever spike, the patient has felt relatively well. He received a transfusion during the night and this morning, seems to have somewhat increased energy. He has a reasonable appetite this morning and denies fever, chills, or shortness of breath this morning. He does have a minimal headache. No other new complaints. PHYSICAL EXAMINATION: Reveals a gentleman who is afebrile now at 37.2, pulse 76, respiratory rate 18, blood pressure 160/77, saturating well on room air. He looks a bit pale. In fact, his conjunctivae are pale as well. His oral cavity unremarkable. Lungs: Fairly clear. A few crackles at the bases, especially left. Cardiac tones with a 1/6 murmur heard best in the aortic area. We are still using peripheral IVs. He does not have a central line. Abdomen essentially soft and nontender, though he reports occasional twinges of right lower quadrant pain. There is no abnormality in that area. No skin rash noted. LABORATORIES: Include white count 4000, platelet count 26,000. His creatinine 0.42. LFT notable for an alk phos 174, albumin 2.4. Procalcitonin last checked 0.6. Recent crypto antigens negative. Last Fungitell the was 45 which is negative. A repeat is pending from the . Micro studies include negative blood cultures on the and . The bronch wash from Tuesday the is negative so far except for the growth of what appears to be Sierra albicans in the bronch wash. The PCRs on the bronchoscopy will not be available until the according to a call I just made to the [facility]. Other studies on the bronch wash have been negative. IMAGING: No new imaging since our CT of the that showed decreasing pulmonary nodules but continued hepatic and splenic lesions. IMPRESSION: This is an extraordinarily complex case of a gentleman who had acute myeloid leukemia with pseudomonas sepsis earlier this year and recovered normally. Following his consolidation chemotherapy, he developed febrile neutropenia again which was clearly due to methicillin-resistant Staphylococcus aureus infection of his nose. These fevers had briefly resolved and then recurred even as his white count returned to normal levels. This is a typical scenario for hepatosplenic candidiasis and the CT of the abdomen certainly looks like hepatosplenic candidiasis. The confounding factor is that he had pulmonary nodules noted on CT scans of the chest, and this would not be entirely typical of hepatosplenic candidiasis, though it has been reported on occasion. We have been using Cresemba as one antifungal drug for coverage of both mucor and sierra, as well as micafungin for more targeted sierra coverage. At this point, we are waiting on our bronch wash PCR studies, though we do have some Sierra albicans growing in the bronch wash which is not diagnostic of anything but does seem to support the idea that he may have hepatosplenic candidiasis with sierra of pulmonary nodules. RECOMMENDATIONS: 1. Will continue with Cresemba, as well as micafungin. 2. We await the PCR studies. 3. If we do not have a clear-cut answer by Tuesday or if the patient continues to spike high fevers, we may need to give platelets and consider either liver biopsy, lung biopsy or both with appropriate histopathology cultures and PCR.
[2017-01-12 10:52] VITALS: BP 161/81; PULSE 82; RESP 20; O2SAT 97
--- NOTE | 2017-01-12 14:33 | PCM.PNMED ---
Subjective Date of Service January 12, 2017 Subjective No new issues today. Patient and sleeping comfortably they have been seen by both heme/onc and infectious disease I did not wake them. Exam Vital Signs Vital Sign - Last Date Time Temp Pulse Resp B/P Pulse Ox O2 Delivery O2 Flow Rate FiO2 01/12/17 10:52 37.3 82 20 161/81 97 Room Air 01/07/17 16:24 1 Intake and Output 01/11/17 01/11/17 01/12/17 Cumulative From/Thru 15:00 23:00 07:00 12/24/16 10:16 - 01/12/17 06:09 Intake Total 2346 ml 510 ml 26806 ml Output Total 1000 ml 2850 ml 65262 ml Balance 1346 ml -2340 ml 73889 ml Intake Oral 1184 ml 200 ml 01943 ml IV Total 1162 ml 19885 ml Packed Cells 310 ml 1810 ml Platelets 768 ml Output Urine Total 1000 ml 2850 ml 39164 ml # Voids 13 # Bowel Movements 0 5 Exam Gen.-Thin male sleeping Eyes-closed ENT- ears normal, nose normal Neck- supple/trach midline CVS-normal rate Lungs-regular rate no accessory muscle usage no evidence of respiratory distress GI- flat Musc- moving 4 no obvious deformity Neuro- cranial nerves II through XII intact to gross examination, nonfocal Skin- warm and dry, no rashes/lesions/wounds noted Psych-sleeping, Lab and Diagnostics Result Diagram: 01/12/17 0610 01/12/17 0610 X-Rays, CTs and MRIs PROCEDURE: X-RAY CHEST, TWO VIEWS ([id number]) INDICATIONS: Cough and fever TECHNIQUE: 2 views of the chest were acquired. COMPARISON: [facility], CT, CT CHEST WO CON, 12/28/2016, 12:29. [facility], CR, XR CHEST 1VW, 12/30/2016, 18:01. [facility], CR, XR CHEST 2VW, 12/28/2016, 9:43. FINDINGS: Surgical changes and devices: None. Lungs and pleura: There are persistent small bilateral pleural effusions. There are scattered indistinct small nodular opacities redemonstrated bilaterally, similar in appearance to the prior studies. Mediastinum: Mediastinal contours are normal. Heart size is normal. Bones and chest wall: No suspicious bony abnormalities. Soft tissues appear unremarkable. IMPRESSION: 1. Persistent small pleural effusions and scattered indistinct nodular opacities similar in appearance to the prior studies. Dictated by: Steve Brand M.D. on 01/02/2017 at 9:47 Approved by: Steve Brand M.D. on 01/02/2017 at 9:48 PROCEDURE: CT CHEST WITHOUT CONTRAST ([id number]) INDICATIONS: F/U pulm nodules-AML with fever TECHNIQUE: Noncontrast 5 mm thick sections acquired from the pulmonary apices to the posterior costophrenic angles. 7 mm thick coronal and sagittal MIP reformats were then acquired. For radiation dose reduction, the following was used: automated exposure control, adjustment of mA and/or kV according to patient size. COMPARISON: [facility], CT, CT ABD PELVIS W CON, 12/31/2016, 12:11. [facility], CT, CT CHEST WO CON, 12/28/2016, 12:29. FINDINGS: Image quality: Excellent. Lungs and pleura: Small bilateral pleural effusions with adjacent atelectasis. Scattered subcentimeter bilateral widespread pulmonary nodules, demonstrating mild surrounding groundglass. There is diffuse, mild interval increase in size and conspicuity since the prior study dated 12/28/16. For example pleural based nodules on image 27 in the left upper lobe measures 8 mm, previously 2 mm. Mediastinum: Heart size is normal. There is trace pericardial effusion. No mediastinal adenopathy by size criteria. Thoracic aorta and central pulmonary arteries are normal in size. Esophagus is normal in caliber. No hiatal hernia. Bones and chest wall: No suspicious bony lesions. No vertebral body compression fractures. No axillary or supraclavicular adenopathy by size criteria. Thyroid gland unremarkable. Abdomen: In the visualized liver, there is suggestion of innumerable hypodense ill-defined nodules at the left and right lobes, however limited evaluation in the absence of IV contrast. Of note, on the prior study dated 12/31/16 these were not present. Similar-appearing lesions are now present in the spleen IMPRESSION: Interval progression in widespread subcentimeter bilateral pulmonary nodules with surrounding groundglass attenuation suggesting an infectious or inflammatory etiology. Septic emboli in the differential. Please correlate clinically. Small bilateral pleural effusions with adjacent atelectasis appear stable to mildly decreased. Trace pericardial effusion. Ill-defined nodules within the liver and spleen which appear new since prior study. The rapid development is suggestive of infection, possibly multiple micro -abscesses, such as candidiasis in the immunocompromised setting. Findings were personally telephoned to Dr. Hackett 01/03/17 1434 hours Dictated by: Paulino Joseph M.D. on 01/03/2017 at 13:25 Approved by: Paulino Joseph M.D. on 01/03/2017 at 14:34 Assessment & Plan 71-year-old male admitted 12/24 with neutropenic fever. 01/10 eating this medically complex patient at high risk for complications first time during this hospitalization. 01/11 patient slowly responding to treatment, thought is he is splenic candidiasis as well. Had a temperature spike with heart rate in the 140s, dose of Cardizem and heart rate improved and went back to normal. Expected timeline for treatment of fevers in this global process is measured in weeks. Hep locking IV fluids patient is 14.5 L fluid plus since admission. Transfused 1 unit PRBCs, magnesium and potassium continue to be replaced. 01/12 no fevers, some BAL results still pending, no changes to therapy. #weakness/fatigue- transfuse 1U PRBCs 01/11 #Hypokalemia/hypomagnesemia-replaced/monitor, corrected 01/12 we will not check again tomorrow. #anemia, thrombocytopenia, neutropenia POA, -Hg up s/p 1more U PRBCs 01/11 -ANC improving, PLT stable, no signs of active bleeding -with AML in remission, s/p consolidation chemo of 5days of idarubicin IV, cytarabine (SIMÓN-C) 12/14. s/p 2units pRBC, 2PLT 12/23 -appreciate for blood products, further management, -- per Dr. Balbuena's prev notes, "transfusions with irradiated leuko-poor blood products for hematocrit less than 25% and platelets less than 15,000.": -- Gave 2 units of PRBC 12/24.transfusion of 2PRBC and 2 platelets on 12/27 s/p [id number] 01/07, 3rdU PRBCs 01/11 # fever, Initially thought due to sinusitis. - CT abd 12/31, 01/[address] new lung/liver/spleen nodules c/w systemic fungal infection-dominique or mucor. PICC line discontinued 01/01, tip culture ngtd. serial BC ngtd. fungal culture 01/03 pend. - ID Dr Hackett + oncology following, -- Tx himanshu, vanco 1st wk, then ceftaroline/cipro 01/01-01/08ish. tx systemic fungal Cresemba (isavuconazonium)/micafungin 01/03?-present - - BAL 01/07, awaits final result of BAL, viral PCR neg. AFB/CMV/PCP pending -repeat CT chest abd pelvis 01/10 showed improvement of lung nodule spot stable liver nodules #mild hypochloremic hyponatremia, 01/04-, pt seemed mildly hypovolemic, will do trial of IVF, start NS 100cc/hr today, please readjust rate tomorrow based on Na level # HTN/pAfib seen 12/27 none further, sinus tachy to 140s w/ fever 01/11 - episode afib w/ RVR for 2 hrs on 12/27. Resolved after Cardizem -Patient on Cardizem by mouth for hypertension. No history of atrial fibrillation -TSH WNL # AML -Dr Balbuena following s/p induction+ # insomnia chronic, At bedtime melatonin, Ativan PO when necessary home med Prophylaxis:SCD dispo: pending, likely prolonged, coordinate with ID+Onc diet:general diet Full code VTE Prophylaxis: Other (not indicated, platelets too low) VTE Mechanical Devices: Intermittant Pneumatic CD Resuscitation Status: CPR: Attempt Resuscitation Vlad Renner MD January 12, 2017 14:33
[2017-01-12 15:21] VITALS: BP 136/81; PULSE 78; RESP 18; O2SAT 96
[2017-01-12] MEDS: 0.9% Sodium Chloride 250 ML IV PRN (15:37)
[2017-01-12] MEDS: Micafungin Inj 150 MG in Dextrose 5% 100 ML IV SCH (15:39)
[2017-01-12] MEDS: Potassium Chloride 20 mEq SR Tablet PO SCH (17:37)
--- NOTE | 2017-01-12 19:21 | NUR ---
Afebrile Pt remained afebrile throughout the shift; reported feeling warm w/ no c/o chills. Receiving Tylenol Q6H PRN for fever. Patient independent in the room. AAOX3, VSS, IV PEPPER, CAROLINE'd tele today per . Bed low and locked, call light within reach, often at bedside. Addendum: 01/12/17 at 1926 by GABRIEL RAMÍREZ RN Agree w/ above SN2 note
[2017-01-12 19:45] VITALS: BP 151/65; PULSE 74; RESP 17; O2SAT 98
[2017-01-12] MEDS: LORazepam 1 mg Tablet PO SCH (20:36)
[2017-01-13 05:10] VITALS: BP 141/87; PULSE 75; RESP 17; O2SAT 96
[2017-01-13] MEDS: Pantoprazole 40 mg ER24 Tablet PO SCH (06:03)
--- NOTE | 2017-01-13 06:27 | NUR ---
Fever Pt had febrile episode of 38.9 at MN, Tylenol given every 6hrs, effective, pt afebrile in AM. Pt denies any pain all shift.
--- NOTE | 2017-01-13 07:40 | PROG NOTE ---
[address] [address] PROGRESS NOTE PATIENT: JEFF AMEZCUA : 1945 MR#: [id number] ADMIT: 12/24/2016 JOB ID: [id number] DATE: 01/13/2017 SUBJECTIVE: The patient is a 71-year-old gentleman with acute myelogenous leukemia in remission, hospitalized with febrile neutropenia. His neutropenia has resolved, but he continues to have intermittent fevers. He had a good day yesterday, but beginning about 10 p.m. developed shaking chills and spiked a fever to 38.9 degrees around midnight last night. He is quite fatigued this morning. He is somewhat discouraged. No bleeding or rashes. Final results on bronchoscopy from last Tuesday are still pending. OBJECTIVE: Vitals: T 38.9, P 75, R 17, BP 141/87, O2 saturation 96% on room air. HEENT: Conjunctivae slightly pale. Mucous membranes moist. No oral lesions. Nodes: No adenopathy in the neck or axilla. Chest a few basilar crackles. Cardiac exam regular. Abdomen soft, nontender, active bowel tones. Extremities trace edema, 1+ distal pulses. LABORATORIES: Pending. ASSESSMENT AND PLAN: Acute myelogenous leukemia status post induction, re-induction, and consolidation chemotherapy with SIMÓN-C and idarubicin: The patient is in complete remission from his leukemia. Neutropenia has resolved, but he had a prolonged period of immunosuppression due to his underlying leukemia and treatment with chemotherapy. He has imaging with numerous hepatosplenic nodules and pulmonary nodules, suspicious for candidiasis, aspergillosis, mucor, or some other unknown organism. He remains on Cresemba as well as micafungin. Agree with Dr. Hackett's recommendation to strongly consider liver biopsy if we do not have an answer from his bronchoscopy last Tuesday. I would give 2 units of platelets prior to liver or lung biopsy. Otherwise, continue additional supportive care. Correct electrolytes. The patient has had moderate hypokalemia.
[2017-01-13 08:01] LABS: BASOPHILS % (AUTO) 0.4 % (0-3); EOSINOPHILS % (AUTO) 0.2 % (0-5); MONOCYTES % (AUTO) 9.1 % (4-12); Mean Corpuscular Hemoglobin 29.7 pg (27.0-35.0); Mean Corpuscular Volume 85.1 fL (81-100); NEUTROPHILS % (AUTO) 74.3 % (40-74)
[2017-01-13 08:04] LABS: Platelet Count 35 bil/L (150-400)
[2017-01-13 08:27] LABS: Magnesium 1.6 mg/dL (1.6-2.6); Phosphorus 3.9 mg/dL (2.5-4.9)
[2017-01-13] MEDS: Omega-3 Fatty Acids 1,000 mg Capsule PO SCH (10:18)
[2017-01-13] MEDS: Potassium Chloride 20 mEq SR Tablet PO SCH ×2 (10:18→18:15)
[2017-01-13] MEDS: Diltiazem CD 120 mg ER24 Capsule PO SCH (10:18)
[2017-01-13 11:54] LABS: Bilirubin, Direct 0.3 mg/dL (0.0-0.3)
--- NOTE | 2017-01-13 11:57 | PROG NOTE ---
[address] [address] PROGRESS NOTE PATIENT: JEFF AMEZCUA : 1945 MR#: [id number] ADMIT: 12/24/2016 JOB ID: [id number] DATE: 01/13/2017 REASON FOR FOLLOWUP: Persistent fevers in a patient with recovered neutropenia following consolidative chemotherapy for AML. INTERVAL HISTORY: Overnight, the patient reports he has felt a bit better. He once again though had high spiking fever to 38.9 at about midnight. This was associated with chills and malaise, as his fever spikes typically are but, but it was not quite as severe and long lasting as recent episodes. Overall, he thinks this pattern of fevers is becoming more favorable, though they are still occurring. This morning he feels quite well. He notes increased energy. No fevers. No chills. No sweats. He has absolutely no sinus complaint. No cough. No chest pain. No nausea, vomiting, diarrhea. PHYSICAL EXAMINATION: Reveals an afebrile gentleman; was 38.9 at midnight and now 36.9, pulse 75, respiratory rate 17, blood pressure 141/87, saturating well on room air. No acute distress. Eyes with conjunctival pallor. Sinuses are entirely nontender. Neck without abnormality. Lungs quite clear posteriorly. Abdomen is soft, nontender. No hepatosplenomegaly. No skin rashes noted. LABORATORY DATA: Labs include white count 5500, his highest of this hospital stay, and that includes of 4500 or so polys. Platelet count is finally starting to rise; now 35, hematocrit stuck at 24. Creatinine 0.5. Most recent LFTs were normal. They were done two days ago though. Serologic studies are of great interest. Over the course of his two admissions, the patient has had about 10 negative Fungitells; that is less than 31. On January 03, the Fungitell crept up to 45 which was still well within the normal range, but one done January 10 is 109, which is definitely elevated and we do not have another explanation for this increased Fungitell. Many blood cultures including fungal blood cultures done over the past couple of weeks are negative. We do have a bronch wash which is growing Sierra albicans and PCRs from last Tuesday's bronchoscopy are pending and expected out tomorrow. IMAGING: No new imaging has been done since the CT abdomen and pelvis which I reviewed today on the screen with the Pulmonary library sales consultant. IMPRESSION: This patient may be turning the corner, though it may be a little early to tell as he is still having fever, albeit low fevers. We have several lines of evidence that suggest that this is hepatic splenic candidiasis. One is the classic appearance of the liver and spleen lesions as he recovered his white count in association with the fevers. The other is that we have found Sierra at least in the bronchoscopy wash and Fungitell though was normal has recently bumped up considerably. All of these support a fungal etiology and the typical appearance on the CT scan as well as the culture from the bronchoscopy wash would suggest Sierra albicans. That said, finding Sierra in the bronchoscopy wash is not exactly diagnostic of anything and only serves to reinforce our suspicions. RECOMMENDATIONS: 1. Will continue with Cresemba once a day as well as micafungin IV once a day. 2. We await the PCR studies from [facility] tomorrow. 3. I would be inclined to keep the patient on this aggressive dual antifungal therapy until he is afebrile completely for least a couple of days and then will consider discharge. 4. The problem will be discharge on what. If all we have is evidence for Sierra albicans, it may in fact be reasonable to send him on high-dose oral fluconazole with an expected course of 6-12 months. If any other fungus is identified or even strongly suspected, we may need to persist with Cresemba, voriconazole posaconazole, or one of the more broadly active azoles.
[2017-01-13 13:12] VITALS: BP 128/67; PULSE 70; RESP 18; O2SAT 94
--- NOTE | 2017-01-13 14:12 | PCM.PNMED ---
Subjective Date of Service January 13, 2017 Subjective Another rough night with a fever. No chest pain, no dyspnea, no nausea or vomiting. Doing all right at this point in time. Exam Vital Signs Vital Sign - Last Date Time Temp Pulse Resp B/P Pulse Ox O2 Delivery O2 Flow Rate FiO2 01/13/17 13:12 36.8 70 18 128/67 94 Room Air 01/07/17 16:24 1 Intake and Output 01/12/17 01/12/17 01/13/17 Cumulative From/Thru 15:00 23:00 07:00 12/24/16 10:16 - 01/13/17 05:05 Intake Total 1550 ml 800 ml 89686 ml Output Total 850 ml 1050 ml 25790 ml Balance 700 ml -250 ml 84039 ml Intake Oral 1417 ml 800 ml 81006 ml IV Total 133 ml 65333 ml Packed Cells 1810 ml Platelets 768 ml Output Urine Total 850 ml 1050 ml 41282 ml # Voids 13 # Bowel Movements 0 5 Exam Gen.- A+ O 3 no apparent distress. Sitting up in bed Eyes- open conjunctiva clear, pupils equal nonicteric ENT- ears normal, nose normal Neck- supple/trach midline CVS-normal rate Lungs-regular rate no accessory muscle usage no evidence of respiratory distress GI- flat Musc- moving 4 no obvious deformity Neuro- cranial nerves II through XII intact to gross examination, nonfocal Skin- warm and dry, no rashes/lesions/wounds noted Psych- pleasant and appropriate, Lab and Diagnostics Result Diagram: 01/13/17 0745 01/13/17 0745 X-Rays, CTs and MRIs PROCEDURE: X-RAY CHEST, TWO VIEWS ([id number]) INDICATIONS: Cough and fever TECHNIQUE: 2 views of the chest were acquired. COMPARISON: [facility], CT, CT CHEST WO CON, 12/28/2016, 12:29. [facility], CR, XR CHEST 1VW, 12/30/2016, 18:01. [facility], CR, XR CHEST 2VW, 12/28/2016, 9:43. FINDINGS: Surgical changes and devices: None. Lungs and pleura: There are persistent small bilateral pleural effusions. There are scattered indistinct small nodular opacities redemonstrated bilaterally, similar in appearance to the prior studies. Mediastinum: Mediastinal contours are normal. Heart size is normal. Bones and chest wall: No suspicious bony abnormalities. Soft tissues appear unremarkable. IMPRESSION: 1. Persistent small pleural effusions and scattered indistinct nodular opacities similar in appearance to the prior studies. Dictated by: Steve Brand M.D. on 01/02/2017 at 9:47 Approved by: Steve Brand M.D. on 01/02/2017 at 9:48 PROCEDURE: CT CHEST WITHOUT CONTRAST ([id number]) INDICATIONS: F/U pulm nodules-AML with fever TECHNIQUE: Noncontrast 5 mm thick sections acquired from the pulmonary apices to the posterior costophrenic angles. 7 mm thick coronal and sagittal MIP reformats were then acquired. For radiation dose reduction, the following was used: automated exposure control, adjustment of mA and/or kV according to patient size. COMPARISON: [facility], CT, CT ABD PELVIS W CON, 12/31/2016, 12:11. [facility], CT, CT CHEST WO CON, 12/28/2016, 12:29. FINDINGS: Image quality: Excellent. Lungs and pleura: Small bilateral pleural effusions with adjacent atelectasis. Scattered subcentimeter bilateral widespread pulmonary nodules, demonstrating mild surrounding groundglass. There is diffuse, mild interval increase in size and conspicuity since the prior study dated 12/28/16. For example pleural based nodules on image 27 in the left upper lobe measures 8 mm, previously 2 mm. Mediastinum: Heart size is normal. There is trace pericardial effusion. No mediastinal adenopathy by size criteria. Thoracic aorta and central pulmonary arteries are normal in size. Esophagus is normal in caliber. No hiatal hernia. Bones and chest wall: No suspicious bony lesions. No vertebral body compression fractures. No axillary or supraclavicular adenopathy by size criteria. Thyroid gland unremarkable. Abdomen: In the visualized liver, there is suggestion of innumerable hypodense ill-defined nodules at the left and right lobes, however limited evaluation in the absence of IV contrast. Of note, on the prior study dated 12/31/16 these were not present. Similar-appearing lesions are now present in the spleen IMPRESSION: Interval progression in widespread subcentimeter bilateral pulmonary nodules with surrounding groundglass attenuation suggesting an infectious or inflammatory etiology. Septic emboli in the differential. Please correlate clinically. Small bilateral pleural effusions with adjacent atelectasis appear stable to mildly decreased. Trace pericardial effusion. Ill-defined nodules within the liver and spleen which appear new since prior study. The rapid development is suggestive of infection, possibly multiple micro -abscesses, such as candidiasis in the immunocompromised setting. Findings were personally telephoned to Dr. Hackett 01/03/17 1434 hours Dictated by: Paulino Joseph M.D. on 01/03/2017 at 13:25 Approved by: Paulino Joseph M.D. on 01/03/2017 at 14:34 Assessment & Plan 71-year-old male admitted 12/24 with neutropenic fever. 01/10 eating this medically complex patient at high risk for complications first time during this hospitalization. 01/11 patient slowly responding to treatment, thought is he is splenic candidiasis as well. Had a temperature spike with heart rate in the 140s, dose of Cardizem and heart rate improved and went back to normal. Expected timeline for treatment of fevers in this global process is measured in weeks. Hep locking IV fluids patient is 14.5 L fluid plus since admission. Transfused 1 unit PRBCs, magnesium and potassium continue to be replaced. 01/12 no fevers, some BAL results still pending, no changes to therapy. 01/13 medically complex patient. One episode of fever last night around 10 PM lab results still pending. No changes to therapy at this time. #weakness/fatigue- transfuse 1U PRBCs 01/11, improved 01/13 #Hypokalemia/hypomagnesemia-replaced/monitor, c #anemia, thrombocytopenia, neutropenia (resolved), -Hg up -ANC improving, PLT stable, no signs of active bleeding -with AML in remission, s/p consolidation chemo of 5days of idarubicin IV, cytarabine (SIMÓN-C) 12/14. s/p 2units pRBC, 2PLT 12/23 -- per Dr. Balbuena's "transfusions with irradiated leuko-poor blood products for hematocrit less than 25% and platelets less than 15,000.": -- Gave 2 units of PRBC 12/24.transfusion of 2PRBC and 2 platelets on 12/27 s/p [id number] 01/07, 3rdU PRBCs 01/11 # fever, ?tx systemic fungal? still awaiting definitive diagnostic, may need liver bx if fevers persist/nodules not shrinking - ID Dr Hackett + oncology following, -- Tx himanshu, vanco 1st wk, then ceftaroline/cipro 01/01-01/08ish. tx systemic fungal Cresemba (isavuconazonium)/micafungin 01/03?-present - - BAL 01/07, awaits final result of BAL, viral PCR neg. AFB/CMV/PCP pending - CT chest/abd/pelvis 12/31- new nodules, repeat 01/10 improved jenise nodule, stable liver/spleen # HTN/pAfib seen 12/27 none further, sinus tachy to 140s w/ fever 01/11 - episode afib w/ RVR for 2 hrs on 12/27. Resolved after Cardizem -Patient on Cardizem by mouth for hypertension. No history of atrial fibrillation -TSH WNL # AML -Dr Balbuena following s/p induction+ # insomnia chronic, At bedtime melatonin, Ativan PO when necessary home med Prophylaxis:SCD dispo: pending, likely prolonged, coordinate with ID+Onc diet:general diet Full code VTE Prophylaxis: Other (not indicated, platelets too low) VTE Mechanical Devices: Intermittant Pneumatic CD Resuscitation Status: CPR: Attempt Resuscitation Vlad Renner MD January 13, 2017 14:11 Resuscitation Status: CPR: Attempt Resuscitation Vlad Renner MD January 13, 2017 14:11
[2017-01-13] MEDS: 0.9% Sodium Chloride 250 ML IV PRN (14:47)
[2017-01-13] MEDS: Micafungin Inj 150 MG in Dextrose 5% 100 ML IV SCH (14:47)
--- NOTE | 2017-01-13 15:39 | NUR ---
Afebrile Pt has remained afebrile throughout the shift w/ no c/o chills or pain. Patient has had increased energy and a good appetite. Receiving alternating PO Tylenol Q6H PRN and Motrin TID PRN for fever, which has been effective. Patient independent in the room, AAOX3, VSS. Bed low and locked, call light within reach, at bedside. Will continue to monitor V/S for fever. Addendum: 01/13/17 at 1603 by GABRIEL RAMÍREZ RN Agree w/ above SN2 note
[2017-01-13 20:25] VITALS: BP 134/77; PULSE 73; RESP 18; O2SAT 96
[2017-01-13] MEDS: LORazepam 1 mg Tablet PO SCH (21:52)
--- NOTE | 2017-01-14 03:35 | NUR ---
Afebrile Pt. has remained afebrile so far this shift. Staying at 36.7 Celsius. Pt. receiving Tylenol PO and Ibuprofen PO as scheduled to keep temperature down. Pt. has so far had no complaints of malaise. Will continue to monitor.
[2017-01-14 04:45] VITALS: BP 165/86; PULSE 80; RESP 16; O2SAT 97
[2017-01-14] MEDS: Pantoprazole 40 mg ER24 Tablet PO SCH (05:37)
[2017-01-14 06:24] LABS: BASOPHILS % (AUTO) 0.4 % (0-3); EOSINOPHILS % (AUTO) 0.2 % (0-5); MONOCYTES % (AUTO) 8.8 % (4-12); Mean Corpuscular Hemoglobin 30.1 pg (27.0-35.0); Mean Corpuscular Volume 87.3 fL (81-100); NEUTROPHILS % (AUTO) 79.3 % (40-74)
[2017-01-14 06:28] LABS: Magnesium 1.6 mg/dL (1.6-2.6)
[2017-01-14 07:14] LABS: Platelet Count 34 bil/L (150-400)
[2017-01-14] MEDS: Potassium Chloride 20 mEq SR Tablet PO SCH ×2 (09:02→17:47)
[2017-01-14] MEDS: Omega-3 Fatty Acids 1,000 mg Capsule PO SCH (09:02)
[2017-01-14] MEDS: Diltiazem CD 120 mg ER24 Capsule PO SCH (09:02)
[2017-01-14 09:07] VITALS: BP 171/93; PULSE 81; RESP 17; O2SAT 97
--- NOTE | 2017-01-14 10:30 | NUR ---
Social Work Note: Continued Discharge Planning Data& Assessment: Per pt is not medically ready for discharge at this time. ID is following. Pt to discharge home with to transport via POV. SW to continue to follow for medical readiness and in case any discharge needs arise. Lab work pending - will identify sensitivities for antibiotics - anticipate that pt will be in the hospital through the weekend. Plan: Per pt is not medically ready for discharge at this time. Anticipated discharge home via POV when medically ready. SW to continue to follow for medical readiness and in case any discharge needs arise. FREDERIC Yun
--- NOTE | 2017-01-14 13:54 | PCM.PNMED ---
Subjective Date of Service January 14, 2017 Subjective and patient report that he is kind of tired today. He did not have a fever yesterday and that is good. No new issues with chest pain, dyspnea, nausea vomiting Exam Vital Signs Vital Sign - Last Date Time Temp Pulse Resp B/P Pulse Ox O2 Delivery O2 Flow Rate FiO2 01/14/17 09:07 36.8 81 17 171/93 97 Room Air Intake and Output 01/13/17 01/13/17 01/14/17 Cumulative From/Thru 15:00 23:00 07:00 12/24/16 10:16 - 01/14/17 04:45 Intake Total 2011 ml 1200 ml 06649 ml Output Total 1400 ml 1400 ml 32237 ml Balance 611 ml -200 ml 29638 ml Intake Oral 1886 ml 1200 ml 22653 ml IV Total 115 ml 29091 ml Packed Cells 1810 ml Platelets 768 ml Tube Irrigant 10 ml 10 ml Output Urine Total 1400 ml 1400 ml 93154 ml # Voids 13 # Bowel Movements 0 0 5 Exam Gen.- A+ O 3 no apparent distress. Sitting up in bed Eyes- open conjunctiva clear, pupils equal nonicteric ENT- ears normal, nose normal Neck- supple/trach midline CVS-normal rate Lungs-regular rate no accessory muscle usage no evidence of respiratory distress GI- flat Musc- moving 4 no obvious deformity Neuro- cranial nerves II through XII intact to gross examination, nonfocal Skin- warm and dry, no rashes/lesions/wounds noted Psych- pleasant and appropriate, Lab and Diagnostics Result Diagram: 01/14/17 0545 01/14/17 0545 X-Rays, CTs and MRIs PROCEDURE: X-RAY CHEST, TWO VIEWS ([id number]) INDICATIONS: Cough and fever TECHNIQUE: 2 views of the chest were acquired. COMPARISON: [facility], CT, CT CHEST WO CON, 12/28/2016, 12:29. [facility], CR, XR CHEST 1VW, 12/30/2016, 18:01. [facility], CR, XR CHEST 2VW, 12/28/2016, 9:43. FINDINGS: Surgical changes and devices: None. Lungs and pleura: There are persistent small bilateral pleural effusions. There are scattered indistinct small nodular opacities redemonstrated bilaterally, similar in appearance to the prior studies. Mediastinum: Mediastinal contours are normal. Heart size is normal. Bones and chest wall: No suspicious bony abnormalities. Soft tissues appear unremarkable. IMPRESSION: 1. Persistent small pleural effusions and scattered indistinct nodular opacities similar in appearance to the prior studies. Dictated by: Steve Brand M.D. on 01/02/2017 at 9:47 Approved by: Steve Brand M.D. on 01/02/2017 at 9:48 PROCEDURE: CT CHEST WITHOUT CONTRAST ([id number]) INDICATIONS: F/U pulm nodules-AML with fever TECHNIQUE: Noncontrast 5 mm thick sections acquired from the pulmonary apices to the posterior costophrenic angles. 7 mm thick coronal and sagittal MIP reformats were then acquired. For radiation dose reduction, the following was used: automated exposure control, adjustment of mA and/or kV according to patient size. COMPARISON: [facility], CT, CT ABD PELVIS W CON, 12/31/2016, 12:11. [facility], CT, CT CHEST WO CON, 12/28/2016, 12:29. FINDINGS: Image quality: Excellent. Lungs and pleura: Small bilateral pleural effusions with adjacent atelectasis. Scattered subcentimeter bilateral widespread pulmonary nodules, demonstrating mild surrounding groundglass. There is diffuse, mild interval increase in size and conspicuity since the prior study dated 12/28/16. For example pleural based nodules on image 27 in the left upper lobe measures 8 mm, previously 2 mm. Mediastinum: Heart size is normal. There is trace pericardial effusion. No mediastinal adenopathy by size criteria. Thoracic aorta and central pulmonary arteries are normal in size. Esophagus is normal in caliber. No hiatal hernia. Bones and chest wall: No suspicious bony lesions. No vertebral body compression fractures. No axillary or supraclavicular adenopathy by size criteria. Thyroid gland unremarkable. Abdomen: In the visualized liver, there is suggestion of innumerable hypodense ill-defined nodules at the left and right lobes, however limited evaluation in the absence of IV contrast. Of note, on the prior study dated 12/31/16 these were not present. Similar-appearing lesions are now present in the spleen IMPRESSION: Interval progression in widespread subcentimeter bilateral pulmonary nodules with surrounding groundglass attenuation suggesting an infectious or inflammatory etiology. Septic emboli in the differential. Please correlate clinically. Small bilateral pleural effusions with adjacent atelectasis appear stable to mildly decreased. Trace pericardial effusion. Ill-defined nodules within the liver and spleen which appear new since prior study. The rapid development is suggestive of infection, possibly multiple micro -abscesses, such as candidiasis in the immunocompromised setting. Findings were personally telephoned to Dr. Hackett 01/03/17 1434 hours Dictated by: Paulino Joseph M.D. on 01/03/2017 at 13:25 Approved by: Paulino Joseph M.D. on 01/03/2017 at 14:34 Assessment & Plan 71-year-old male admitted 12/24 with neutropenic fever. 01/10 eating this medically complex patient at high risk for complications first time during this hospitalization. 01/11 patient slowly responding to treatment, thought is he is splenic candidiasis as well. Had a temperature spike with heart rate in the 140s, dose of Cardizem and heart rate improved and went back to normal. Expected timeline for treatment of fevers in this global process is measured in weeks. Hep locking IV fluids patient is 14.5 L fluid plus since admission. Transfused 1 unit PRBCs, magnesium and potassium continue to be replaced. 01/12 no fevers, some BAL results still pending, no changes to therapy. 01/13 medically complex patient. One episode of fever last night around 10 PM lab results still pending. No changes to therapy at this time. 01/14 no fevers but patient fatigue today no changes to the regimen. Interval summary Patient was transfused 1 unit of blood this week, had some magnesium/ potassium replacement. We are trying to string together a few days where the patient is afebrile. The BAL results from 01/07 just back 01/14 were nondiagnostic. Working diagnosis is systemic candidiasis treated with Cresemba (isavuconazonium)/micafungin 01/03?-present, repeat imaging 01/17 or to see if there is shrinkage of the nodules and if the patient has been afebrile for 48+ hours. Expected course of this disease process if it is systemic candidiasis with abscesses in is easily 30 days. If the lesions are shrinking the patient may be discharged 01/18 regimen not entirely clear to be decided upon by Dr. Hackett/infectious disease. If lesions are not shrinking likely we will be biopsying and patient will need platelet transfusion. Monitor electrolytes and CBC for when necessary transfusions as outlined below. # fever, ?tx systemic fungal? still awaiting definitive diagnostic, may need liver bx if fevers persist/nodules not shrinking - ID Dr Hackett + oncology following, -- Tx himanshu, vanco 1st wk, then ceftaroline/cipro 01/01-01/08ish. tx systemic fungal Cresemba (isavuconazonium)/micafungin 01/03?-present - - BAL 01/07, awaits final result of BAL, viral PCR neg. AFB/CMV/PCP pending - CT chest/abd/pelvis 12/31- new nodules, repeat 01/10 improved jenise nodule, stable liver/spleen #weakness/fatigue- transfuse 1U PRBCs 01/11, improved 01/13 #Hypokalemia/hypomagnesemia-replaced/monitor, c #anemia, thrombocytopenia, neutropenia (resolved), -Hg up -ANC improving, PLT stable, no signs of active bleeding -with AML in remission, s/p consolidation chemo of 5days of idarubicin IV, cytarabine (SIMÓN-C) 12/14. s/p 2units pRBC, 2PLT 12/23 -- per Dr. Balbuena's "transfusions with irradiated leuko-poor blood products for hematocrit less than 25% and platelets less than 15,000.": -- Gave 2 units of PRBC 12/24.transfusion of 2PRBC and 2 platelets on 12/27 s/p [id number] 01/07, 3rdU PRBCs 01/11 # HTN/pAfib seen 12/27 none further, sinus tachy to 140s w/ fever 01/11 - episode afib w/ RVR for 2 hrs on 12/27. Resolved after Cardizem -Patient on Cardizem by mouth for hypertension. No history of atrial fibrillation -TSH WNL # AML -Dr Balbuena following s/p induction+ # insomnia chronic, At bedtime melatonin, Ativan PO when necessary home med Prophylaxis:SCD dispo: pending, likely prolonged, coordinate with ID+Onc diet:general diet Full code VTE Prophylaxis: Other (not indicated, platelets too low) VTE Mechanical Devices: Intermittant Pneumatic CD Resuscitation Status: CPR: Attempt Resuscitation Vlad Renner MD January 14, 2017 13:54
[2017-01-14 14:26] VITALS: BP 145/72; PULSE 77; O2SAT 97
[2017-01-14] MEDS: Micafungin Inj 150 MG in Dextrose 5% 100 ML IV SCH (15:38)
[2017-01-14 20:55] VITALS: BP 161/80; PULSE 77; RESP 18; O2SAT 99
[2017-01-14] MEDS: LORazepam 1 mg Tablet PO SCH (21:49)
--- NOTE | 2017-01-15 05:18 | NUR ---
Fever Patient ran a slight fever last night 100.5. Tylenol was given and temp came down to 100.1 shortly after. Patient up independent in room. Saline locked. A&OX3. Voiding regularly. Care continues.
[2017-01-15 05:38] LABS: Mean Corpuscular Volume 89.7 fL (81-100)
[2017-01-15 05:39] LABS: Mean Corpuscular Hemoglobin 30.1 pg (27.0-35.0); Platelet Count 32 bil/L (150-400)
[2017-01-15 05:52] LABS: BASOPHILS % (AUTO) 0.4 % (0-3); EOSINOPHILS % (AUTO) 0.2 % (0-5); MONOCYTES % (AUTO) 9.7 % (4-12); NEUTROPHILS % (AUTO) 78.3 % (40-74)
[2017-01-15 05:55] LABS: Magnesium 1.5 mg/dL (1.6-2.6)
[2017-01-15 06:16] VITALS: BP 154/78; PULSE 67; RESP 18; O2SAT 98
[2017-01-15] MEDS: Pantoprazole 40 mg ER24 Tablet PO SCH (06:25)
[2017-01-15 08:07] VITALS: BP 143/73; PULSE 68; RESP 18; O2SAT 98
[2017-01-15] MEDS ORDERED: Magnesium Sulf 4 Gm/100 mL H2O 4 GM in IV Premix 1 EACH IV ONE (11:20)
[2017-01-15] MEDS: Potassium Chloride 20 mEq SR Tablet PO SCH ×2 (11:30→17:44)
[2017-01-15] MEDS: Diltiazem CD 120 mg ER24 Capsule PO SCH (11:32)
[2017-01-15] MEDS: Omega-3 Fatty Acids 1,000 mg Capsule PO SCH (11:32)
--- NOTE | 2017-01-15 11:36 | PCM.PNMED ---
Subjective Date of Service January 15, 2017 Subjective Patient complains of generalized weakness, otherwise he is doing okay. Magnesium level is low, will replace with IV magnesium. Sodium is 132. Hemoglobin 8.2 with platelets 32. Exam Vital Signs Vital Sign - Last Date Time Temp Pulse Resp B/P Pulse Ox O2 Delivery O2 Flow Rate FiO2 01/15/17 08:07 36.8 68 18 143/73 98 Room Air Intake and Output 01/14/17 01/14/17 01/15/17 Cumulative From/Thru 15:00 23:00 07:00 12/24/16 10:16 - 01/15/17 06:51 Intake Total 836 ml 600 ml 42276 ml Output Total 1055 ml 2550 ml 22391 ml Balance -219 ml -1950 ml 71031 ml Intake Oral 836 ml 600 ml 04523 ml IV Total 67271 ml Packed Cells 1810 ml Platelets 768 ml Tube Irrigant 10 ml Output Urine Total 1055 ml 2550 ml 12207 ml # Voids 13 # Bowel Movements 0 5 Exam PHYSICAL EXAM: GENERAL: Alert, not in distress, cooperative HEAD: atraumatic, normocephalic, no bruises. EYES: GARRY, EOMI, anicteric, able to fully open and close eyelids SKIN: Skin color normal, turgor normal/decreased. No visible rashes or lesions. EAR, NOSE, MOUTH, THROAT: Lips, oral mucosa, tongue gums, oropharynx are moist , pink, no lesions. Ears normal appearance, no lesions. NECK: no jugulovenous distention, supple, ROM normal. RESPIRATORY: Lungs clear to auscultation. Good diaphragmatic excursion. CARDIAC: normal S1 and S2; no rubs, murmurs, or gallops; regular rate and rhythm ABDOMEN: Abdomen soft, non-tender. BS normal. No masses or organomegaly. MUSCULOSKELETAL: ROM full, muscles are not tender EXTREMITIES:no pitting edema in LE, no deformities, clubbing or skin discoloration. NEURO: Alert, oriented X 3, Sensation grossly intact., Cranial nerves II-XII intact, Grossly normal motor function. PULSES: 2+ radial,, 2+ carotid REVIEW OF SYSTEMS: GENERAL: +malaise, no fevers., SEE HPI HEENT: Negative for frequent or significant headaches All other reviewed and negative other than HPI. IVs and Medications Medications Reviewed: Medications were reviewed in detail Lab and Diagnostics Result Diagram: 01/15/17 0505 01/15/17 0505 X-Rays, CTs and MRIs PROCEDURE: X-RAY CHEST, TWO VIEWS ([id number]) INDICATIONS: Cough and fever TECHNIQUE: 2 views of the chest were acquired. COMPARISON: [facility], CT, CT CHEST WO CON, 12/28/2016, 12:29. [facility], CR, XR CHEST 1VW, 12/30/2016, 18:01. [facility], CR, XR CHEST 2VW, 12/28/2016, 9:43. FINDINGS: Surgical changes and devices: None. Lungs and pleura: There are persistent small bilateral pleural effusions. There are scattered indistinct small nodular opacities redemonstrated bilaterally, similar in appearance to the prior studies. Mediastinum: Mediastinal contours are normal. Heart size is normal. Bones and chest wall: No suspicious bony abnormalities. Soft tissues appear unremarkable. IMPRESSION: 1. Persistent small pleural effusions and scattered indistinct nodular opacities similar in appearance to the prior studies. Dictated by: Steve Brand M.D. on 01/02/2017 at 9:47 Approved by: Steve Brand M.D. on 01/02/2017 at 9:48 PROCEDURE: CT CHEST WITHOUT CONTRAST ([id number]) INDICATIONS: F/U pulm nodules-AML with fever TECHNIQUE: Noncontrast 5 mm thick sections acquired from the pulmonary apices to the posterior costophrenic angles. 7 mm thick coronal and sagittal MIP reformats were then acquired. For radiation dose reduction, the following was used: automated exposure control, adjustment of mA and/or kV according to patient size. COMPARISON: [facility], CT, CT ABD PELVIS W CON, 12/31/2016, 12:11. [facility], CT, CT CHEST WO CON, 12/28/2016, 12:29. FINDINGS: Image quality: Excellent. Lungs and pleura: Small bilateral pleural effusions with adjacent atelectasis. Scattered subcentimeter bilateral widespread pulmonary nodules, demonstrating mild surrounding groundglass. There is diffuse, mild interval increase in size and conspicuity since the prior study dated 12/28/16. For example pleural based nodules on image 27 in the left upper lobe measures 8 mm, previously 2 mm. Mediastinum: Heart size is normal. There is trace pericardial effusion. No mediastinal adenopathy by size criteria. Thoracic aorta and central pulmonary arteries are normal in size. Esophagus is normal in caliber. No hiatal hernia. Bones and chest wall: No suspicious bony lesions. No vertebral body compression fractures. No axillary or supraclavicular adenopathy by size criteria. Thyroid gland unremarkable. Abdomen: In the visualized liver, there is suggestion of innumerable hypodense ill-defined nodules at the left and right lobes, however limited evaluation in the absence of IV contrast. Of note, on the prior study dated 12/31/16 these were not present. Similar-appearing lesions are now present in the spleen IMPRESSION: Interval progression in widespread subcentimeter bilateral pulmonary nodules with surrounding groundglass attenuation suggesting an infectious or inflammatory etiology. Septic emboli in the differential. Please correlate clinically. Small bilateral pleural effusions with adjacent atelectasis appear stable to mildly decreased. Trace pericardial effusion. Ill-defined nodules within the liver and spleen which appear new since prior study. The rapid development is suggestive of infection, possibly multiple micro -abscesses, such as candidiasis in the immunocompromised setting. Findings were personally telephoned to Dr. Hackett 01/03/17 1434 hours Dictated by: Paulino Joseph M.D. on 01/03/2017 at 13:25 Approved by: Paulino Joseph M.D. on 01/03/2017 at 14:34 Assessment & Plan 71-year-old male admitted 12/24 with neutropenic fever. 01/10 eating this medically complex patient at high risk for complications first time during this hospitalization. 01/11 patient slowly responding to treatment, thought is he is splenic candidiasis as well. Had a temperature spike with heart rate in the 140s, dose of Cardizem and heart rate improved and went back to normal. Expected timeline for treatment of fevers in this global process is measured in weeks. Hep locking IV fluids patient is 14.5 L fluid plus since admission. Transfused 1 unit PRBCs, magnesium and potassium continue to be replaced. 01/12 no fevers, some BAL results still pending, no changes to therapy. 01/13 medically complex patient. One episode of fever last night around 10 PM lab results still pending. No changes to therapy at this time. 01/14 no fevers but patient fatigue today no changes to the regimen. 01/15 patient feels weak, intermittently spikes fever Fever. weakness/fatigue. Probably systemic fungal infection - stable - s/p BAL 01/07 by - CT chest/abd/pelvis 12/31-15 new nodules, repeat 01/10 improved jenise nodule, stable liver/spleen - ID Dr Hackett + oncology following, - Patient was treated with himanshu, vanco 1st wk, then ceftaroline/cipro 01/01-ish Plan - continue treatment of possible systemic fungal infection with Cresemba ( isavuconazonium)/micafungin (01/03-present) - patient may need liver bx if fevers persist/nodules not shrinking Anemia, thrombocytopenia - stab;e - neutropenia (resolved), - s/p 2 units of PRBC 12/24, 2PRBC and 2 platelets on 12/27 s/p [id number] 01/07, 3rdU PRBCs 01/11 - no signs of active bleeding Plan - Dr. 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 s/p 2units pRBC, 2PLT 12/23 DVT Prophylaxis:SCD Disposition: pending Plan of care discussed with the nurse, Labs, radiology tests, reviewed. Plan of care, diagnostic procedures and available alternatives were discussed and reviewed with patient. All questions answered. Patient verbalized understanding, approved and agreed to plan of care. Given patient's current condition, I certify, in my opinion inpatient services greater than two midnights are medically necessary for this patient. Please see H&P and MD progress notes for additional information about patient's course of treatment. VTE Prophylaxis: Other (not indicated, platelets too low) VTE Mechanical Devices: Intermittant Pneumatic CD Resuscitation Status: CPR: Attempt Resuscitation Time spent 35 min Alejo Mendes MD January 15, 2017 11:36
[2017-01-15] MEDS: 0.9% Sodium Chloride 250 ML IV PRN (13:23)
[2017-01-15 14:42] VITALS: BP 154/73; PULSE 81; RESP 18; O2SAT 98
[2017-01-15] MEDS: Micafungin Inj 150 MG in Dextrose 5% 100 ML IV SCH ×2 (15:54→17:33)
[2017-01-15 18:24] LABS: Mean Corpuscular Hemoglobin 29.4 pg (27.0-35.0); Mean Corpuscular Volume 90.4 fL (81-100)
--- NOTE | 2017-01-15 19:25 | NUR ---
Afebrile/Affect Pt was afebrile during shift using Tylenol and IBU alternating. Pt has very flat affect and mood is much more depressed than previous shifts. Pt feels weaker and repeat CBC done, but levels were actually improved. Pt declined to walk in hallways or go outside when offered. No c/o pain. New IV in left wrist. IV infiltrated and has hard indurated area on right arm, hot pack applied twice. Pt sitting in chair, call light in reach.
[2017-01-15 20:11] VITALS: BP 146/73; PULSE 80; RESP 18; O2SAT 99
[2017-01-15] MEDS: LORazepam 1 mg Tablet PO SCH (21:12)
--- NOTE | 2017-01-16 05:09 | NUR ---
Ambulation / Afebrile Pt able to ambulate in evening out to courtyard for fresh air with , Rob. Reported improved mood from this outing. Remained afebrile through night; Tylenol given preventively for fever per pt request. Hourly rounding ongoing.
[2017-01-16 06:29] VITALS: BP 167/88; RESP 16; O2SAT 97
[2017-01-16] MEDS: Pantoprazole 40 mg ER24 Tablet PO SCH (06:31)
[2017-01-16 07:23] LABS: Mean Corpuscular Hemoglobin 30.3 pg (27.0-35.0); Mean Corpuscular Volume 90.8 fL (81-100)
[2017-01-16 07:39] LABS: Magnesium 1.9 mg/dL (1.6-2.6); Phosphorus 4.2 mg/dL (2.5-4.9)
[2017-01-16 07:56] LABS: Platelet Count 34 bil/L (150-400)
[2017-01-16 07:57] LABS: BASOPHILS % (AUTO) 1 % (0-3); EOSINOPHILS % (AUTO) 0 % (0-5); MONOCYTES % (AUTO) 11 % (4-12); NEUTROPHILS % (AUTO) 80 % (40-74)
[2017-01-16] MEDS: Diltiazem CD 120 mg ER24 Capsule PO SCH (09:05)
[2017-01-16] MEDS: Omega-3 Fatty Acids 1,000 mg Capsule PO SCH (09:06)
[2017-01-16] MEDS: Potassium Chloride 20 mEq SR Tablet PO SCH ×2 (09:06→17:16)
--- NOTE | 2017-01-16 14:51 | NUR ---
Pt was sleeping - not able to sign JOANNA
--- NOTE | 2017-01-16 15:46 | NUR ---
Social Work: Continued Discharge Planning D: EMR reviewed. Pt is on day 23 of hospitalization. SW attempted to meet with pt to get JOANNA signed but pt was sleeping and a "do not disturb - patient is sleeping" sign was posted on the door. SW confirmed pt will transport home with spouse when medically stable. A: Pt who is independent at baseline. P: Pt to transport home with spouse via POV. JAZMIN Carr
[2017-01-16] MEDS: Micafungin Inj 150 MG in Dextrose 5% 100 ML IV SCH (16:16)
--- NOTE | 2017-01-16 17:17 | PCM.PNMED ---
Subjective Date of Service January 16, 2017 Subjective Patient is in the chair, had increased temperature today. His is at the bedside. He is feeling overall weak today. Exam Vital Signs Vital Sign - Last Date Time Temp Pulse Resp B/P Pulse Ox O2 Delivery O2 Flow Rate FiO2 01/16/17 06:29 37.2 16 167/88 97 Room Air 01/15/17 20:11 80 Intake and Output 01/15/17 01/15/17 01/16/17 Cumulative From/Thru 15:00 23:00 07:00 12/24/16 10:16 - 01/16/17 06:54 Intake Total 1023 ml 700 ml 70333 ml Output Total 900 ml 2000 ml 23528 ml Balance 123 ml -1300 ml 15238 ml Intake Oral 850 ml 700 ml 21717 ml IV Total 173 ml 75164 ml Packed Cells 1810 ml Platelets 768 ml Tube Irrigant 10 ml Output Urine Total 900 ml 2000 ml 67392 ml # Voids 13 # Bowel Movements 1 6 Exam GENERAL: Alert, not in distress HEAD: atraumatic, normocephalic, no bruises. EYES: GARRY, EOMI, anicteric SKIN: Skin color normal, turgor normal. No visible rashes or lesions. EAR, NOSE, MOUTH, THROAT: Lips, oral mucosa, tongue are moist, pink, no lesions. NECK: no jugulovenous distention, supple, ROM normal. ABDOMEN: Abdomen soft, non-tender. MUSCULOSKELETAL: ROM full, muscles are not tender EXTREMITIES:no pitting edema in LE, no deformities, clubbing or skin discoloration. NEURO: Alert, oriented X 3, Cranial nerves II-XII intact, Grossly normal motor function. PULSES: 2+ radial,, 2+ carotid REVIEW OF SYSTEMS: GENERAL: +malaise, no fevers., SEE HPI HEENT: Negative for frequent or significant headaches All other reviewed and negative other than HPI. IVs and Medications Medications Reviewed: Medications were reviewed in detail Lab and Diagnostics Result Diagram: 01/16/1770401/16/17704 X-Rays, CTs and MRIs PROCEDURE: X-RAY CHEST, TWO VIEWS ([id number]) INDICATIONS: Cough and fever TECHNIQUE: 2 views of the chest were acquired. COMPARISON: [facility], CT, CT CHEST WO CON, 12/28/2016, 12:29. [facility], CR, XR CHEST 1VW, 12/30/2016, 18:01. [facility], CR, XR CHEST 2VW, 12/28/2016, 9:43. FINDINGS: Surgical changes and devices: None. Lungs and pleura: There are persistent small bilateral pleural effusions. There are scattered indistinct small nodular opacities redemonstrated bilaterally, similar in appearance to the prior studies. Mediastinum: Mediastinal contours are normal. Heart size is normal. Bones and chest wall: No suspicious bony abnormalities. Soft tissues appear unremarkable. IMPRESSION: 1. Persistent small pleural effusions and scattered indistinct nodular opacities similar in appearance to the prior studies. Dictated by: Steve Brand M.D. on 01/02/2017 at 9:47 Approved by: Steve Brand M.D. on 01/02/2017 at 9:48 PROCEDURE: CT CHEST WITHOUT CONTRAST ([id number]) INDICATIONS: F/U pulm nodules-AML with fever TECHNIQUE: Noncontrast 5 mm thick sections acquired from the pulmonary apices to the posterior costophrenic angles. 7 mm thick coronal and sagittal MIP reformats were then acquired. For radiation dose reduction, the following was used: automated exposure control, adjustment of mA and/or kV according to patient size. COMPARISON: [facility], CT, CT ABD PELVIS W CON, 12/31/2016, 12:11. [facility], CT, CT CHEST WO CON, 12/28/2016, 12:29. FINDINGS: Image quality: Excellent. Lungs and pleura: Small bilateral pleural effusions with adjacent atelectasis. Scattered subcentimeter bilateral widespread pulmonary nodules, demonstrating mild surrounding groundglass. There is diffuse, mild interval increase in size and conspicuity since the prior study dated 12/28/16. For example pleural based nodules on image 27 in the left upper lobe measures 8 mm, previously 2 mm. Mediastinum: Heart size is normal. There is trace pericardial effusion. No mediastinal adenopathy by size criteria. Thoracic aorta and central pulmonary arteries are normal in size. Esophagus is normal in caliber. No hiatal hernia. Bones and chest wall: No suspicious bony lesions. No vertebral body compression fractures. No axillary or supraclavicular adenopathy by size criteria. Thyroid gland unremarkable. Abdomen: In the visualized liver, there is suggestion of innumerable hypodense ill-defined nodules at the left and right lobes, however limited evaluation in the absence of IV contrast. Of note, on the prior study dated 12/31/16 these were not present. Similar-appearing lesions are now present in the spleen IMPRESSION: Interval progression in widespread subcentimeter bilateral pulmonary nodules with surrounding groundglass attenuation suggesting an infectious or inflammatory etiology. Septic emboli in the differential. Please correlate clinically. Small bilateral pleural effusions with adjacent atelectasis appear stable to mildly decreased. Trace pericardial effusion. Ill-defined nodules within the liver and spleen which appear new since prior study. The rapid development is suggestive of infection, possibly multiple micro -abscesses, such as candidiasis in the immunocompromised setting. Findings were personally telephoned to Dr. Hackett 01/03/17 1434 hours Dictated by: Paulino Joseph M.D. on 01/03/2017 at 13:25 Approved by: Paulino Joseph M.D. on 01/03/2017 at 14:34 Assessment & Plan 71-year-old male admitted 12/24 with neutropenic fever. 01/10 eating this medically complex patient at high risk for complications first time during this hospitalization. 01/11 patient slowly responding to treatment, thought is he is splenic candidiasis as well. Had a temperature spike with heart rate in the 140s, dose of Cardizem and heart rate improved and went back to normal. Expected timeline for treatment of fevers in this global process is measured in weeks. Hep locking IV fluids patient is 14.5 L fluid plus since admission. Transfused 1 unit PRBCs, magnesium and potassium continue to be replaced. 01/12 no fevers, some BAL results still pending, no changes to therapy. 01/13 medically complex patient. One episode of fever last night around 10 PM lab results still pending. No changes to therapy at this time. 01/14 no fevers but patient fatigue today no changes to the regimen. 01/15 patient feels weak, intermittently spikes fever 01/16 patient feels weak, intermittently spikes fever Fever. weakness/fatigue. Probably systemic fungal infection - stable - s/p BAL 01/07 by - CT chest/abd/pelvis 12/31- new nodules, repeat 01/10 improved jenise nodule, stable liver/spleen - ID Dr Hackett + oncology following, - Patient was treated with himanshu, vanco 1st wk, then ceftaroline/cipro 01/01-ish Plan - continue treatment of possible systemic fungal infection with Cresemba ( isavuconazonium)/micafungin (01/03-present) - patient may need liver bx if fevers persist/nodules not shrinking Anemia, thrombocytopenia - stable - neutropenia (resolved), - s/p 2 units of PRBC 12/24, 2PRBC and 2 platelets on 12/27 s/p [id number] 01/07, 3rdU PRBCs 01/11 - no signs of active bleeding Plan - Dr. 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 s/p 2units pRBC, 2PLT 12/23 DVT Prophylaxis:SCD Disposition: pending Plan of care discussed with the nurse, Labs, radiology tests, reviewed. Plan of care, diagnostic procedures and available alternatives were discussed and reviewed with patient. All questions answered. Patient verbalized understanding, approved and agreed to plan of care. Given patient's current condition, I certify, in my opinion inpatient services greater than two midnights are medically necessary for this patient. Please see H&P and MD progress notes for additional information about patient's course of treatment. VTE Prophylaxis: Other (not indicated, platelets too low) VTE Mechanical Devices: Intermittant Pneumatic CD Resuscitation Status: CPR: Attempt Resuscitation Alejo Mendes MD January 16, 2017 17:17
[2017-01-16 18:37] VITALS: BP 150/76; PULSE 72; RESP 17; O2SAT 100
--- NOTE | 2017-01-16 19:18 | NUR ---
Activity/Fever Pt had fever mid-morning, Tylenol already given, so dose of IBU given. Fever not high enough to warrant blood cultures. Pt able to take nap and fever was gone upon awakening. Pt and were able to ambulate to courtyard and sit and have lunch and then walk in hallways. Mood slightly improved today, but pt still has flat affect compared to earlier in admission. Pt sitting in chair, has call light.
[2017-01-16 19:40] VITALS: BP 146/78; PULSE 77; RESP 18; O2SAT 99
[2017-01-16] MEDS: LORazepam 1 mg Tablet PO SCH (21:00)
--- NOTE | 2017-01-17 04:06 | NUR ---
Ambulation / Afebrile Pt able to ambulate in evening out to courtyard. Remained afebrile through night; Tylenol and Motrin given preventively for fever per pt request. Observed sleeping well. Hourly rounding ongoing.
[2017-01-17 05:33] LABS: Mean Corpuscular Hemoglobin 29.4 pg (27.0-35.0); Mean Corpuscular Volume 91.8 fL (81-100)
[2017-01-17 05:36] LABS: NEUTROPHILS % (AUTO) 70.5 % (40-74); Platelet Count 37 bil/L (150-400)
[2017-01-17 05:37] LABS: BASOPHILS % (AUTO) 0.6 % (0-3); EOSINOPHILS % (AUTO) 0.3 % (0-5); MONOCYTES % (AUTO) 1.2 % (4-12)
[2017-01-17 06:01] LABS: Magnesium 1.8 mg/dL (1.6-2.6); Phosphorus 4.2 mg/dL (2.5-4.9)
[2017-01-17 06:20] VITALS: BP 163/76; PULSE 78; RESP 18; O2SAT 99
[2017-01-17] MEDS: Pantoprazole 40 mg ER24 Tablet PO SCH (06:38)
[2017-01-17 08:30] VITALS: BP 153/85; PULSE 80
[2017-01-17] MEDS: Diltiazem CD 120 mg ER24 Capsule PO SCH (08:34)
[2017-01-17] MEDS: Omega-3 Fatty Acids 1,000 mg Capsule PO SCH (08:34)
[2017-01-17] MEDS: Potassium Chloride 20 mEq SR Tablet PO SCH ×2 (08:34→17:55)
--- NOTE | 2017-01-17 10:43 | NUR ---
JOANNA signed @ 9 AM
[2017-01-17 11:46] VITALS: BP 135/75; PULSE 77; RESP 18; O2SAT 97
[2017-01-17] MEDS: Micafungin Inj 150 MG in Dextrose 5% 100 ML IV SCH (15:23)
--- NOTE | 2017-01-17 18:33 | NUR ---
Ambulation Patient ambulated chew and out to the courtyard with . Preventive measures taken for fever with Tylenol and Motrin this shift. Patient denied pain and nausea this shift. Call light and tray table within reach. Will continue to monitor patient hourly.
--- NOTE | 2017-01-17 19:54 | PCM.PNMED ---
Subjective Date of Service January 17, 2017 Subjective Patient is seen and examined. He states that he has no appetite, though at times he enjoys food that is broad and from outside. They are wanting to know today's lab values. No other concerns Exam Vital Signs Vital Sign - Last Date Time Temp Pulse Resp B/P Pulse Ox O2 Delivery O2 Flow Rate FiO2 01/16/17 22:55 36.8 01/16/17 19:40 77 18 146/78 99 Room Air Intake and Output 01/16/17 01/16/17 01/17/17 Cumulative From/Thru 15:00 23:00 07:00 12/24/16 10:16 - 01/16/17 19:17 Intake Total 1807 ml 89876 ml Output Total 1350 ml 93410 ml Balance 457 ml 57349 ml Intake Oral 1700 ml 09654 ml IV Total 107 ml 66223 ml Packed Cells 1810 ml Platelets 768 ml Tube Irrigant 10 ml Output Urine Total 1350 ml 03811 ml # Voids 13 # Bowel Movements 0 6 Exam Gen.: No acute distress thin-appearing HEENT: Normocephalic, atraumatic Heart: Regular rate and rhythm no S3-S4 sounds Lungs: Clear to auscultation no crackles or wheezes Abdomen: Flat and nondistended Extremities: Negative for edema Neuro: No focal deficits Psych: Negative for anxiety IVs and Medications IV Fluids None Medications Reviewed: Medications were reviewed in detail Lab and Diagnostics Laboratory Tests Test 01/17/17 05:16 White Blood Count 3.6th/mm3 (3.8-10.1) Red Blood Count 2.82mil/mm3 (4.40-5.80) Hemoglobin 8.3g/dL (13.8-17.2) Hematocrit 25.9% (41.0-50.0) Mean Corpuscular Volume 91.8fL (81-100) Mean Corpuscular Hemoglobin 29.4pg (27.0-35.0) Mean Corpuscular Hemoglobin Concent 32.0% (32.0-37.0) Red Cell Distribution Width 15.9% (12.3-15.4) Platelet Count 37bil/L (150-400) Neutrophils (%) (Auto) 70.5% (40-74) Lymphocytes (%) (Auto) 12.9% (14-46) Monocytes (%) (Auto) 1.2% (4-12) Eosinophils (%) (Auto) 0.3% (0-5) Basophils (%) (Auto) 0.6% (0-3) Band Neutrophils % 1% (1-5) Sodium Level 134mEq/L (134-144) Potassium Level 4.2mEq/L (3.5-5.2) Chloride Level 96mEq/L (97-108) Carbon Dioxide Level 24mmol/L (18-29) Blood Urea Nitrogen 14mg/dL (8-27) Creatinine 0.52mg/dL (0.76-1.27) Estimat Glomerular Filtration Rate 166mL/min (>59) Glucose Level 120mg/dL (60-99) Calcium Level 9.4mg/dL (8.5-10.1) Phosphorus Level 4.2mg/dL (2.5-4.9) Magnesium Level 1.8mg/dL (1.6-2.6) Microbiology 01/11/17 Blood Culture - Final, Complete NO GROWTH AFTER 5 DAYS 01/07/17 AFB/modified AFB Identification - Final, Complete 01/07/17 - Final, Complete 01/07/17 Bacteria Detection (PCR) - Final, Complete 01/07/17 Cytomegalovirus Culture - Final, Complete 01/01/17 Culture & Sensitivity - Final, Complete No growth. Result Diagram: 01/16/17 0705 01/16/17 07 X-Rays, CTs and MRIs PROCEDURE: X-RAY CHEST, TWO VIEWS ([id number]) INDICATIONS: Cough and fever TECHNIQUE: 2 views of the chest were acquired. COMPARISON: [facility], CT, CT CHEST WO CON, 12/28/2016, 12:29. [facility], CR, XR CHEST 1VW, 12/30/2016, 18:01. [facility], CR, XR CHEST 2VW, 12/28/2016, 9:43. FINDINGS: Surgical changes and devices: None. Lungs and pleura: There are persistent small bilateral pleural effusions. There are scattered indistinct small nodular opacities redemonstrated bilaterally, similar in appearance to the prior studies. Mediastinum: Mediastinal contours are normal. Heart size is normal. Bones and chest wall: No suspicious bony abnormalities. Soft tissues appear unremarkable. IMPRESSION: 1. Persistent small pleural effusions and scattered indistinct nodular opacities similar in appearance to the prior studies. Dictated by: Steve Brand M.D. on 01/02/2017 at 9:47 Approved by: Steve Brand M.D. on 01/02/2017 at 9:48 PROCEDURE: CT CHEST WITHOUT CONTRAST ([id number]) INDICATIONS: F/U pulm nodules-AML with fever TECHNIQUE: Noncontrast 5 mm thick sections acquired from the pulmonary apices to the posterior costophrenic angles. 7 mm thick coronal and sagittal MIP reformats were then acquired. For radiation dose reduction, the following was used: automated exposure control, adjustment of mA and/or kV according to patient size. COMPARISON: [facility], CT, CT ABD PELVIS W CON, 12/31/2016, 12:11. [facility], CT, CT CHEST WO CON, 12/28/2016, 12:29. FINDINGS: Image quality: Excellent. Lungs and pleura: Small bilateral pleural effusions with adjacent atelectasis. Scattered subcentimeter bilateral widespread pulmonary nodules, demonstrating mild surrounding groundglass. There is diffuse, mild interval increase in size and conspicuity since the prior study dated 12/28/16. For example pleural based nodules on image 27 in the left upper lobe measures 8 mm, previously 2 mm. Mediastinum: Heart size is normal. There is trace pericardial effusion. No mediastinal adenopathy by size criteria. Thoracic aorta and central pulmonary arteries are normal in size. Esophagus is normal in caliber. No hiatal hernia. Bones and chest wall: No suspicious bony lesions. No vertebral body compression fractures. No axillary or supraclavicular adenopathy by size criteria. Thyroid gland unremarkable. Abdomen: In the visualized liver, there is suggestion of innumerable hypodense ill-defined nodules at the left and right lobes, however limited evaluation in the absence of IV contrast. Of note, on the prior study dated 12/31/16 these were not present. Similar-appearing lesions are now present in the spleen IMPRESSION: Interval progression in widespread subcentimeter bilateral pulmonary nodules with surrounding groundglass attenuation suggesting an infectious or inflammatory etiology. Septic emboli in the differential. Please correlate clinically. Small bilateral pleural effusions with adjacent atelectasis appear stable to mildly decreased. Trace pericardial effusion. Ill-defined nodules within the liver and spleen which appear new since prior study. The rapid development is suggestive of infection, possibly multiple micro -abscesses, such as candidiasis in the immunocompromised setting. Findings were personally telephoned to Dr. Hackett 01/03/17 1434 hours Dictated by: Paulino Joseph M.D. on 01/03/2017 at 13:25 Approved by: Paulino Joseph M.D. on 01/03/2017 at 14:34 PROCEDURE: CT CHEST, ABDOMEN AND PELVIS WITHOUT CONTRAST ([id number]) INDICATIONS: follow up pulmonary and hepatosplenic nodules IMPRESSION: 1. Slight decrease in pulmonary nodules. 2. No significant change in hepatosplenic nodules. 3. No change in small bilateral pleural effusions. 4. Increased, small amount of ascites. 5. Increased, small pericardial effusion. Dictated by: Karen Mccain M.D. on 01/10/2017 at 13:56 Approved by: Karen Mccain M.D. on 01/10/2017 at 14:31 Assessment & Plan 71-year-old male admitted 12/24 with neutropenic fever. 01/10 eating this medically complex patient at high risk for complications first time during this hospitalization. 01/11 patient slowly responding to treatment, thought is he is splenic candidiasis as well. Had a temperature spike with heart rate in the 140s, dose of Cardizem and heart rate improved and went back to normal. Expected timeline for treatment of fevers in this global process is measured in weeks. Hep locking IV fluids patient is 14.5 L fluid plus since admission. Transfused 1 unit PRBCs, magnesium and potassium continue to be replaced. 01/12 no fevers, some BAL results still pending, no changes to therapy. 01/13 medically complex patient. One episode of fever last night around 10 PM lab results still pending. No changes to therapy at this time. 01/14 no fevers but patient fatigue today no changes to the regimen. 01/15 patient feels weak, intermittently spikes fever 01/16 patient feels weak, intermittently spikes fever Neutropenic fever secondary to systemic fungal infection - stable - s/p BAL 01/07 by : Positive for Sierra albicans - CT chest/abd/pelvis 12/31-15 new nodules, repeat 01/10 improved jenise nodule, stable liver/spleen - ID Dr Hackett + oncology following, - Patient was treated with himanshu, vanco 1st wk, then ceftaroline/cipro 01/01-ish -continue treatment of possible systemic fungal infection with Cresemba ( isavuconazonium)/micafungin (01/03-present) - patient may need liver bx if fevers persist/nodules not shrinking : Follow- up chest CT abdominopelvic on 01/18 Anemia, thrombocytopenia - stable - neutropenia (resolved), - s/p 2 units of PRBC 12/24, 2PRBC and 2 platelets on 12/27 s/p [id number] 01/07, 3rdU PRBCs 01/11 - no signs of active bleeding - Dr. Balbuena advised "transfusions with irradiated leuko-poor blood products for hematocrit less than 25% and platelets less than 15,000.": - monitor CBC daily Paroxysmal, Afib HTN, - stable - resolved after cardizem - c/w curent meds - low Plt and Hb, not a candidate for anticoagulation Hypokalemia/hypomagnesemia - monitor - replace as needed -- stable Insomnia chronic - c/w bedtime melatonin, Ativan PO prn Hypertension: -- Patient was given losartan on last admission, it appears that he has decided along with his PCP that he no longer needed the increase in medication and discontinued -- Based on his current blood pressure readings he could still use a little bit better control of blood pressure medication, will continue the discussion with patient AML -Dr Balbuena following s/p induction -with AML in remission, s/p consolidation chemo of 5days of idarubicin IV, cytarabine (SIMÓN-C) 12/14. s/p 2units pRBC, 2PLT 12/23 DVT Prophylaxis:SCD Disposition: pending improvement in fungal infection with follow-up CT chest abdominopelvic. Plan of care discussed with the nurse, Labs, radiology tests, reviewed. VTE Prophylaxis: Other (not indicated, platelets too low) VTE Mechanical Devices: Intermittant Pneumatic CD Resuscitation Status: CPR: Attempt Resuscitation Time spent 25min Amanda Currie DO January 17, 2017 05:34
[2017-01-17 20:43] VITALS: BP 151/80; PULSE 74; RESP 20; O2SAT 98
[2017-01-17] MEDS: LORazepam 1 mg Tablet PO SCH (21:29)
--- NOTE | 2017-01-18 04:46 | NUR ---
Afebrile Remained afebrile through night; Tylenol given preventively for fever per pt request. Improved mood today related to less fevers and anticipating going home. Hourly rounding ongoing.
[2017-01-18 05:44] LABS: BASOPHILS % (AUTO) 0.6 % (0-3); EOSINOPHILS % (AUTO) 0 % (0-5); MONOCYTES % (AUTO) 9.7 % (4-12); Mean Corpuscular Hemoglobin 30.1 pg (27.0-35.0); Mean Corpuscular Volume 90.9 fL (81-100); NEUTROPHILS % (AUTO) 74.7 % (40-74); Platelet Count 46 bil/L (150-400)
[2017-01-18 06:03] LABS: Magnesium 1.7 mg/dL (1.6-2.6); Phosphorus 4.3 mg/dL (2.5-4.9)
[2017-01-18 06:05] VITALS: BP 171/73; PULSE 82; RESP 20; O2SAT 96
[2017-01-18] MEDS: Pantoprazole 40 mg ER24 Tablet PO SCH (06:17)
--- NOTE | 2017-01-18 08:26 | PROG NOTE ---
[address] [address] PROGRESS NOTE PATIENT: JEFF AMEZCUA : 1945 MR#: [id number] ADMIT: 12/24/2016 JOB ID: [id number] DATE: SUBJECTIVE: The patient is a 71-year-old gentleman who was hospitalized on December 24, 2016, with acute myelogenous leukemia in remission, with febrile neutropenia. Neutropenia resolved. Extensive evaluation revealed pulmonary and hepatosplenic nodules. Sputum sampling was positive for Sierra albicans. All other blood and bronchoscopy specimens have been negative, except for MRSA from a nasal culture at admission. He was initially on broad-spectrum antibiotics, but more recently, this has been narrowed to his antifungal therapy with oral Cresemba and micafungin 150 mg IV daily. He has not had a fever above 38 degrees centigrade since January 14, 2017, and has not had a fever above 37.4 degrees since January 16, 2017. He is a bit depressed. He is becoming deconditioned, but is still able to walk in the halls with his . He is due for repeat CT imaging of the chest, abdomen, and pelvis today to assess the status of his lung and liver nodules. OBJECTIVE: Vitals: T 37.4, P 82, R 20, BP 171/73, O2 saturation 96% on room air. Weight 71.7 kg (down from 80 kg at admission). HEENT: Conjunctivae slightly pale. Mucous membranes moist. He has a slight brown coating over the middle of his tongue. Nodes: No adenopathy in the neck or axilla. Chest: Clear. No wheezes or crackles. Cardiac exam: Regular rate and rhythm with normal S1, S2. Abdomen: Soft, nontender. Normoactive bowel tones. No palpable splenomegaly or masses. Extremities: No edema, 1+ distal pulses. No calf tenderness. LABORATORY DATA: WBC 4.9, hemoglobin 8.3, hematocrit 25.1%, MCV 91, platelets 46,000. Sodium 132, potassium 4.5, BUN 14, creatinine 0.51, glucose 109. ASSESSMENT AND PLAN: Acute myelogenous leukemia status post induction, re-induction, and consolidation chemotherapy with leonor-C and idarubicin. The bone marrow studies following his re-induction chemotherapy confirmed complete remission from leukemia. Following his consolidation chemotherapy, he developed severe pancytopenia. Neutropenia has resolved. He remains anemic and thrombocytopenic, but without indication for transfusion support at this time. Blood cultures have been negative throughout his hospitalization. He had a culture from his nares that was initially positive for methicillin-resistant Staphylococcus aureus, and bronchoscopy that was positive for Sierra albicans. Imaging has shown numerous pulmonary and hepatosplenic nodules. He is being treated with Cresemba and micafungin per Dr. Hackett's recommendations. CT of the chest, abdomen, and pelvis to assess response to therapy is pending later this morning. If this shows significant improvement, then the patient could likely be discharged on an antifungal regimen. However, if pulmonary and/or hepatosplenic nodules are increasing, then he will need a directed biopsy of a selected unresponsive lesion. Hopefully, his imaging will show improvement, in which case, he could be discharged home later today. In that case, please arrange followup [facility] with Dr. Balbuena next week Tuesday with CBC, differential, platelets, and CMP. Additional Infectious Disease follow up will be arranged by Dr. Hackett. Dr. Amanda Currie
--- NOTE | 2017-01-18 10:30 | NUR ---
Off Unit Patient off floor to CT via W/C.
--- NOTE | 2017-01-18 10:49 | NUR ---
Back on Unit Patient back on floor from CT. Denies pain and nausea at this time.
[2017-01-18] MEDS: Potassium Chloride 20 mEq SR Tablet PO SCH (11:13)
[2017-01-18] MEDS: Omega-3 Fatty Acids 1,000 mg Capsule PO SCH (11:14)
[2017-01-18] MEDS: Diltiazem CD 120 mg ER24 Capsule PO SCH (11:14)
[2017-01-18 11:24] VITALS: BP 157/83; PULSE 78
--- NOTE | 2017-01-18 11:45 | NUR ---
NUTRITION FOLLOW-UP: ASSESS: 71 YO male admitted with recurrent neutropenic fevers s/p consolidative chemo. Pt with likely hepatic splenic candidiasis per notes. Pt to have repeat CT of chest to assess status of lung and liver nodules and response to therapy, possible discharge home if good response. PO intake has remained fair to adequate. PMHX: AML, HTN, Diverticulitis LABS:Reviewed. Na 132, Alb 2.4, Glu 109 MEDS: Reviewed. GI: BM x 1 (01/17) CURRENT WTS: 71.7kgWt appears stable as pt discharge wt was 71.4 on 11/23/16 and fluid overload is resolving per MD notes. DIET: General, Ensure all trays. PO intake 25-100% of most meals; generally ~75% EST. NEEDS: Wt gain. Kcals: 5472-1515 kcals/day (30-35 kcal/kg Current BW) Pro: 115-150 g/day (1.5-2.0 g/kg current BW) NUTRITION DIAGNOSIS: 1) Increased nutrient needs related to increased demand for nutrients as evidence by wt loss reported on prior admit-PERSISTS NUTRITION INTERVENTION: 1) Continue to send ensure on all trays to encourage wt maintenance/wt gain. MONITOR / EVAL: PO intake, labs, weights, and nutrition status. Will continue to monitor per low nutrition risk guidelines.
--- NOTE | 2017-01-18 11:50 | DRSVH ---
PROCEDURE: CT CHEST, ABDOMEN AND PELVIS [facility] CONTRAST ([id number]) INDICATIONS: Evaluate lung and liver lesions TECHNIQUE: After the administration of oral and intravenous contrast, 5 mm thick sections acquired from the lung apices to the symphysis. 5 mm coronal and sagittal reformats were performed, with additional 7 mm c oronal MIP reformats through the lungs. For radiation dose reduction, the following was used: autom ated exposure control, adjustment of mA and/or kV according to patient size. COMPARISON: [facility], CT, CT ABD PELVIS W CON, 12/31/2016, 12:11. [facility] al, CT, CT CHEST WO CON, 01/03/2017, 12:53. [facility], CT, CT CHEST ABD PELVIS WO CON, , 13:40. [facility], CT, CT CHEST ABD PELVIS W CON, 10/08/2016, 17:40. FINDINGS: Image quality: There is metallic streak artifact in the hips bilaterally. CHEST: Lungs and pleura: There are persistent small bilateral pleural effusions which appear slightly decre ased compared to the prior study. There are numerous bilateral pulmonary nodules redemonstrated invo lving all lobes with slightly irregular margins. These appear minimally decreased in size compared t o the prior study, with a sales representative electric service right upper lobe nodule on series 3 image 16 now measuring a pproximately 7 mm compared to 9 mm previously. No acute consolidation. Central and peripheral airwa ys appear patent and normal in caliber. Mediastinum: Heart size is normal. There is a small pericardial effusion which appears unchanged. No mediastinal or hilar adenopathy by size criteria. Thoracic aorta and central pulmonary arteries a re normal in size. Esophagus is normal in caliber. No hiatal hernia. Chest wall: No axillary or supraclavicular adenopathy by size criteria. Thyroid gland demonstrates no discrete nodules. ABDOMEN: Solid organs: Numerous small hypoattenuating lesions are redemonstrated within the liver and spleen with progressive increase in size and number compared to the recent prior studies. The largest lesio ns, within the spleen, demonstrate round or ovoid morphology with central hypoattenuation and suggest ion of a thin enhancing wall. These measure up to 9 mm in diameter. The gallbladder is nondistended without calcified gallstones. Biliary system is non dilated. Pancre as enhances normally. No adrenal nodules. Kidneys demonstrate normal size and enhancement, without hydronephrosis. Peritoneum and bowel: Bowel loops demonstrate normal wall thickness and caliber. There is colonic d iverticulosis without acute diverticulitis. There is a small amount of free fluid in the pelvis. Nodes and vessels: No retroperitoneal or mesenteric adenopathy by size criteria. Aorta and inferior vena cava are normal in size. Miscellaneous: No ventral hernias. PELVIS: Genitourinary: Bladder wall thickness is normal. Miscellaneous: No inguinal hernias or adenopathy. Bones: No suspicious bony lesions. No vertebral body compression fractures. IMPRESSION: 1. Progressive increase in size and number of numerous small hypoattenuating lesions throughout live r and spleen compared to recent prior studies. Given the temporal course, imaging appearance, and hi story of neutropenia, the findings are most consistent with microabscesses from atypical infection starr ch as fungal etiologies. Metastatic disease is less likely given the degree of record changer time. 2. Multiple small pulmonary nodules are slightly decreased compared to the recent prior study. The findings also likely represent an infectious or inflammatory etiology and continued followup is recom mended. 3. Slight decrease in size of small bilateral pleural effusions. 4. Colonic diverticulosis. Dictated by: Steve Brand M.D. on 01/18/2017 at 11:37 Approved by: Steve Brand M.D. on 01/18/2017 at 11:49
--- NOTE | 2017-01-18 12:36 | NUR ---
Social Work: Readiness for Discharge D: EMR reviewed. Pt is on day 25 of hospitalization for neutropenic fever per H&P. Pt is not medically stable for discharge at this time, anticipate that pt may be able to discharge in the next few days pending an improved CT scan and ID sign off. ID continues to follow pt. Pt continues to be independent and will discharge home with to transport via POV. No discharge needs identified at this time. SW will continue to follow. A: Pt who is independent at baseline. P: Pt continues to be independent and will discharge home with to transport via POV. No discharge needs identified at this time. SW will continue to follow. JAZMIN Lombardi
--- NOTE | 2017-01-18 14:17 | PROG NOTE ---
[address] [address] PROGRESS NOTE PATIENT: JEFF AMEZCUA : 1945 MR#: [id number] ADMIT: 12/24/2016 JOB ID: [id number] DATE: 01/18/2017 INFECTIOUS DISEASE FOLLOW UP NOTE: REASON FOR FOLLOWUP: Probable hepatosplenic candidiasis with moderating fevers. INTERVAL HISTORY: Over the four days I have not seen the patient, while I was out of town, his fevers have declined considerably and he is now basically afebrile. This represents a first over the past three weeks or so. Recall that when this patient was readmitted with febrile neutropenia he had obvious MRSA infection of his nose which was appropriately treated and resolved. Unfortunately his fevers continued even as his white count rebounded following his consolidation chemotherapy. Eventually, we found he had developed pulmonary nodules. A bronchoscopy yielded only a bit of Sierra and PCR studies were negative. As we are following his pulmonary nodules, the patient developed hepatic and splenic nodules of unknown type. These were never biopsied but they were associated with the development of a positive Fungitell whereas previously it had been negative. He was initially treated with Cresemba and micafungin was added very shortly thereafter. The Cresemba was intended for what we thought could be pulmonary mucor, but that now seems unlikely with the positive Fungitell as mucor does not elevate Fungitell and the patient was never sick enough perhaps to consider pulmonary mucor. The micafungin was added for better treatment of possible hepatosplenic candidiasis. He has been on both these drugs for about 15 days now with gradual resolution of his fevers. REVIEW OF SYSTEMS: Today, the patient is afebrile with no more chills. He feels tired and washed out with a relatively poor appetite but notes that over the past several days his course has been one of slow improvement. He has really no pulmonary symptoms such as shortness of breath or cough and he has some mild right upper quadrant fullness but no pain per se. PHYSICAL EXAMINATION: Reveals an afebrile gentleman, temperature 37.4, pulse 78, respiratory rate 20, blood pressure 157/83. He looks tired and pale but in no acute distress. Conjunctivae are pale. Oral cavity without pharyngitis or thrush. His tongue has a bit of brownish discoloration. Lungs are quite clear. Cardiac tones without murmur. Abdomen with a liver that extends 1 cm below the right costal margin and is nontender. No ascites is present. No skin rash. There is no central line but only a peripheral. LABORATORIES: Include a white count today 4900 which is his best since recovery of his marrow with 75% polys. His platelet count is 46,000, also the best since recovery of his bone marrow and his crit stable at 25. His creatinine is 0.51. Fungitell done the was 109. Blood cultures times many sets have been negative since his admission, now 25 days ago. We did have a MRSA swab from the nose that was positive and Sierra albicans which grew from the bronch wash that has been in terms of positive cultures, serologies or PCRs. Note that the bronch wash was sent for AFB, fungal and bacterial PCR, all of which proved to be negative. IMAGING: Done today includes a chest, abdomen and pelvis CT. It shows that there are increase in the number and size of the small lesions seen through the liver and spleen. The mini pulmonary nodules continue to decrease in size. IMPRESSION: This case was reviewed in detail with Dr. Balbuena and I reviewed the images on the computer screen. 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 The patient was improving with treatment of his MRSA pneumonia during his actual febrile neutropenia, but as his white count started to recover, he actually deteriorated clinically with persistent high spiking fevers and chills. During this time, he initially evolved pulmonary nodules and later added to that hepatosplenic nodules. This would be compatible with hepatosplenic candidiasis though the pulmonary nodules are a bit unusual and they have been reported. At this point, he is steadily improving and is really tired of being in the hospital having spent basically almost three out of the last four months here in the hospital with either his induction therapy for AML or complications of his consolidative therapy. After considerable discussion with Dr. Balbuena and review of the literature, I think it is reasonable to consider allowing the patient to go home on oral fluconazole. He has now received about 15 days of combined Cresemba and micafungin as empiric therapy for this presumably fungal process. The patient will return to Dr. Balbuena's clinic next week and to my clinic in two weeks with plans to do a CT in three weeks. RECOMMENDATIONS: 1. The patient can be discharged today on fluconazole 400 mg once a day for a probable six month course. I would give him a month's worth of fluconazole with multiple refills. 2. He will be seeing Dr. Balbuena next week for CBC and other evaluation. 3. I will see him on February 02 in my clinic, and at that time, plan to obtain a CT scan. 4. If the lesions get bigger over the next two or three weeks, he will surely need a biopsy with histopath PCR and cultures as appropriate. If the lesions slowly fade away, I think we will conclude it was hepatosplenic candidiasis due to Sierra albicans and continue with fluconazole. 5. The patient was instructed to come directly back to the ED or call me on my cell phone immediately if he develops high spiking fevers, chills, nausea, vomiting, or any other new or untoward symptom.
[2017-01-18] MEDS: Micafungin Inj 150 MG in Dextrose 5% 100 ML IV SCH (14:33)
[2017-01-18] MEDS ORDERED: FLUC200T5 PO (14:56)
--- NOTE | 2017-01-18 15:01 | PCM.DIMED ---
Discharge Instructions Date of Service January 18, 2017 Dates of Hospitalization December 24, 2016 at 15:02 Discharge Diagnosis Discharge Diagnosis Neutropenic Fever, Systemic Fungal infection, HTN, AML Medication Instructions Additional med instructions Please take fluconazole as prescribed. Diet Discharge Diet: Heart Healthy Activity Discharge Activity: No restrictions Call your provider Call your provider for: Fever or Chills, Shortness of breath, Bleeding, Chest pain, Vomitting, Excessive diarrhea, Weakness (unilateral), Other Patient Instructions Patient Instructions Please follow up with Dr. Balbuena next week for CBC and other evaluation. Pl follow up with Dr. Hackett on February 02 at his clinic Follow-up plan Please follow up with Dr. Balbuena next week 01/24/17 for CBC and other evaluation. Pl follow up with Dr. Hackett on February 02 at his clinic Please f/u with PCP in 3-4 weeks Repeat CBC with diff, CMP prior to f/u with Dr. Balbuena on 01/24/17 Amanda Currie DO January 18, 2017 15:01
--- NOTE | 2017-01-18 15:28 | NUR ---
Social Work: Discharge D: EMR reviewed. Pt is on day 25 of hospitalization for neutropenic fever per H&P. Pt is medically stable for discharge at this time, discharge orders are active. Pt to discharge on oral abx. Pt will continue outpt follow up with ID and Oncology. Pt continues to be independent. Pt to discharge home with to transport via POV. No discharge needs identified. A: Pt who is independent at baseline. P: Pt to discharge home with to transport via POV. No discharge needs identified. Caitlin Zepeda MSW
--- NOTE | 2017-01-18 17:28 | NUR ---
Discharge Patient discharged home. IV DC'd and intact. Discharge instructions given to both the patient and his . Patient informed to contact Dr. Hackett if fever over 101 and if they have any questions to please call [facility]. RX fluconazole faxed to [facility] in [place] and original sent with patient. gathered all patient belongings. RN escorted patient out via walking.
--- NOTE | 2017-01-21 06:03 | PCM.DC.MED ---
Discharge Summary Date of Service January 18, 2017 Dates of Hospitalization Date of Hospital Admission December 24, 2016 at 15:02 Date of Discharge: January 18, 2017 Providers: Admitting Physician: Eben Lucio MD Primary Care Physician: Bob Velarde MD Attending Physician: Eben Lucio MD Diagnosis at Time of Discharge Diagnosis at Time of Discharge Neutropenic Fever, Systemic Fungal infection, HTN, AML Consultations Oncology, ID Procedures XRay, CTs & MRIs PROCEDURE: X-RAY CHEST, TWO VIEWS ([id number]) INDICATIONS: Cough and fever TECHNIQUE: 2 views of the chest were acquired. COMPARISON: [facility], CT, CT CHEST WO CON, 12/28/2016, 12:29. [facility], CR, XR CHEST 1VW, 12/30/2016, 18:01. [facility], CR, XR CHEST 2VW, 12/28/2016, 9:43. FINDINGS: Surgical changes and devices: None. Lungs and pleura: There are persistent small bilateral pleural effusions. There are scattered indistinct small nodular opacities redemonstrated bilaterally, similar in appearance to the prior studies. Mediastinum: Mediastinal contours are normal. Heart size is normal. Bones and chest wall: No suspicious bony abnormalities. Soft tissues appear unremarkable. IMPRESSION: 1. Persistent small pleural effusions and scattered indistinct nodular opacities similar in appearance to the prior studies. Dictated by: Steve Brand M.D. on 01/02/2017 at 9:47 Approved by: Steve Brand M.D. on 01/02/2017 at 9:48 PROCEDURE: CT CHEST WITHOUT CONTRAST ([id number]) INDICATIONS: F/U pulm nodules-AML with fever TECHNIQUE: Noncontrast 5 mm thick sections acquired from the pulmonary apices to the posterior costophrenic angles. 7 mm thick coronal and sagittal MIP reformats were then acquired. For radiation dose reduction, the following was used: automated exposure control, adjustment of mA and/or kV according to patient size. COMPARISON: [facility], CT, CT ABD PELVIS W CON, 12/31/2016, 12:11. [facility], CT, CT CHEST WO CON, 12/28/2016, 12:29. FINDINGS: Image quality: Excellent. Lungs and pleura: Small bilateral pleural effusions with adjacent atelectasis. Scattered subcentimeter bilateral widespread pulmonary nodules, demonstrating mild surrounding groundglass. There is diffuse, mild interval increase in size and conspicuity since the prior study dated 12/28/16. For example pleural based nodules on image 27 in the left upper lobe measures 8 mm, previously 2 mm. Mediastinum: Heart size is normal. There is trace pericardial effusion. No mediastinal adenopathy by size criteria. Thoracic aorta and central pulmonary arteries are normal in size. Esophagus is normal in caliber. No hiatal hernia. Bones and chest wall: No suspicious bony lesions. No vertebral body compression fractures. No axillary or supraclavicular adenopathy by size criteria. Thyroid gland unremarkable. Abdomen: In the visualized liver, there is suggestion of innumerable hypodense ill-defined nodules at the left and right lobes, however limited evaluation in the absence of IV contrast. Of note, on the prior study dated 12/31/16 these were not present. Similar-appearing lesions are now present in the spleen IMPRESSION: Interval progression in widespread subcentimeter bilateral pulmonary nodules with surrounding groundglass attenuation suggesting an infectious or inflammatory etiology. Septic emboli in the differential. Please correlate clinically. Small bilateral pleural effusions with adjacent atelectasis appear stable to mildly decreased. Trace pericardial effusion. Ill-defined nodules within the liver and spleen which appear new since prior study. The rapid development is suggestive of infection, possibly multiple micro -abscesses, such as candidiasis in the immunocompromised setting. Findings were personally telephoned to Dr. Hackett 01/03/17 1434 hours Dictated by: Paulino Joseph M.D. on 01/03/2017 at 13:25 Approved by: Paulino Joseph M.D. on 01/03/2017 at 14:34 PROCEDURE: CT CHEST, ABDOMEN AND PELVIS WITHOUT CONTRAST ([id number]) INDICATIONS: follow up pulmonary and hepatosplenic nodules IMPRESSION: 1. Slight decrease in pulmonary nodules. 2. No significant change in hepatosplenic nodules. 3. No change in small bilateral pleural effusions. 4. Increased, small amount of ascites. 5. Increased, small pericardial effusion. Dictated by: Karen Mccain M.D. on 01/10/2017 at 13:56 Approved by: Karen Mccain M.D. on 01/10/2017 at 14:31 [facility] Diagnostic Imaging [place] [address] Patient Name: JEFF AMEZCUA MR#: [id number] Location: [facility] Ordering Phys: Sai Balbuena MD Date of Service: 01/18/17 0659 PROCEDURE: CT CHEST, ABDOMEN AND PELVIS WTIH CONTRAST ([id number]) INDICATIONS: Evaluate lung and liver lesions TECHNIQUE: After the administration of oral and intravenous contrast, 5 mm thick sections acquired from the lung apices to the symphysis. 5 mm coronal and sagittal reformats were performed, with additional 7 mm coronal MIP reformats through the lungs. For radiation dose reduction, the following was used: automated exposure control, adjustment of mA and/or kV according to patient size. IMPRESSION: 1. Progressive increase in size and number of numerous small hypoattenuating lesions throughout liver and spleen compared to recent prior studies. Given the temporal course, imaging appearance, and history of neutropenia, the findings are most consistent with microabscesses from atypical infection such as fungal etiologies. Metastatic disease is less likely given the degree of place change roof bolter time. 2. Multiple small pulmonary nodules are slightly decreased compared to the recent prior study. The findings also likely represent an infectious or inflammatory etiology and continued followup is recommended. 3. Slight decrease in size of small bilateral pleural effusions. 4. Colonic diverticulosis. Dictated by: Steve Brand M.D. on 01/18/2017 at 11:37 Approved by: Steve Brand M.D. on 01/18/2017 at 11:49 Brief History 71yo M w/ acute myelogenous leukemia in remission, recent complicated hospitalization in [facility] with neutropenic fever, pseudmonas bactremia, cellulitis. then pt was hospitalized for consolidation chemotherapy with leonor-C and idarubicin, discharged about 10 days ago. pt was seen by while he got transfusion in Cancer center with 2 units packed red blood cells and 2 units of platelets after premedication with Tylenol 650 mg by mouth and hydrocortisone 50 mg IV. After patient went home, pt felt okay, noticed some pain on his nose, pt had dinner well, good appetite, no n/v. pt denied diarrhea , cough, sputum. then pt woke up 3am with fever, 100, pt called oncall Oncologist, who recommended tylenol, pt took 2tab but later in the morning, [id number]. decided to come to hospital. noticed that his nose became more red and tender. Therefore, pt used topical antibiotics twice yesterday for his nose. pt denied pimple any shaving or skin breaks around his nose. pt also had some white, thin watery runny nose this week but was not worsened. Pt otherwise denied neck pain or dysphagia, ear discharge. PICC line was dressed yesterday. denied sick contacts, travel, chest pain, SOB. scrotal swelling. ED VS [id number], 83, 16, 100%on RA, patient had fever 38.3, received one dose meropenem. CBC yesterday was WBC 0.2, hemoglobin 7.4, hematocrit 21.1%, platelets 22,000. today showed WBC0.2, neut6.6%. CXR unremarkable.Dr.Lucas- Mancia spoke to , , recommended meropenem. Hospital Course 71-year-old male admitted 12/24 with neutropenic fever. 01/10 eating this medically complex patient at high risk for complications first time during this hospitalization. 01/11 patient slowly responding to treatment, thought is he is splenic candidiasis as well. Had a temperature spike with heart rate in the 140s, dose of Cardizem and heart rate improved and went back to normal. Expected timeline for treatment of fevers in this global process is measured in weeks. Hep locking IV fluids patient is 14.5 L fluid plus since admission. Transfused 1 unit PRBCs, magnesium and potassium continue to be replaced. 01/12 no fevers, some BAL results still pending, no changes to therapy. 01/13 medically complex patient. One episode of fever last night around 10 PM lab results still pending. No changes to therapy at this time. 01/14 no fevers but patient fatigue today no changes to the regimen. 01/15 patient feels weak, intermittently spikes fever 01/16 patient feels weak, intermittently spikes fever Neutropenic fever secondary to systemic fungal infection - stable - s/p BAL 01/07 by : Positive for Sierra albicans - CT chest/abd/pelvis 12/31-15 new nodules, repeat 01/10 improved jenise nodule, stable liver/spleen - ID Dr Hackett + oncology following, - Patient was treated with himanshu, vanco 1st wk, then ceftaroline/cipro 01/01-ish -continue treatment of possible systemic fungal infection with Cresemba ( isavuconazonium)/micafungin (01/03-present) - patient may need liver bx if fevers persist/nodules not shrinking : Follow- up chest CT abdominopelvic on 01/18 showed worsened liver nodules. -- On the day of d/c, patient is afebrile, tolerating general diet and wanting to go home. His cell counts are stable. -- Patient will be given 1 mo of fluconazole PO 400 mg QD with refills, Dr. Hackett to give additional refills and order follow up CT abd at follow up. Anemia, thrombocytopenia - stable - neutropenia (resolved), - s/p 2 units of PRBC 12/24, 2PRBC and 2 platelets on 12/27 s/p [id number] 01/07, 3rdU PRBCs 01/11 - no signs of active bleeding - Dr. Balbuena advised "transfusions with irradiated leuko-poor blood products for hematocrit less than 25% and platelets less than 15,000.": - monitor CBC daily Paroxysmal, Afib HTN, - stable - resolved after cardizem - c/w curent meds - low Plt and Hb, not a candidate for anticoagulation Hypokalemia/hypomagnesemia - monitor - replace as needed -- stable Insomnia chronic - c/w bedtime melatonin, Ativan PO prn Hypertension: -- Patient was given losartan on last admission, it appears that he has decided along with his PCP that he no longer needed the increase in medication and discontinued -- Based on his current blood pressure readings he could still use a little bit better control of blood pressure medication, we asked patient to reconsider the medication losartan and discuss with PCP. AML -Dr Balbuena following s/p induction -with AML in remission, s/p consolidation chemo of 5days of idarubicin IV, cytarabine (LEONOR-C) 12/14. s/p 2units pRBC, 2PLT 12/23 DVT Prophylaxis:SCD Disposition: pending improvement in fungal infection with follow-up CT chest abdominopelvic. Plan of care discussed with the nurse, Labs, radiology tests, reviewed. Exam Vital Signs (Last) Date Time Temp Pulse Resp B/P Pulse Ox O2 Delivery O2 Flow Rate FiO2 01/18/17 11:24 78 157/83 01/18/17 06:05 37.4 20 96 Room Air Exam Gen.: No acute distress thin-appearing HEENT: Normocephalic, atraumatic Heart: Regular rate and rhythm no S3-S4 sounds Lungs: Clear to auscultation no crackles or wheezes Abdomen: Flat and nondistended Extremities: Negative for edema Neuro: No focal deficits Psych: Negative for anxiety Test 12/24/16 12:04 12/24/16 17:20 12/25/16 16:30 12/26/16 17:10 Urine Culture Reflexed Not indicated Hold Red Top Tube Received (Received) Urine Color Yellow (YELLOW) Urine Appearance Clear (CLEAR,HAZY) Urine pH 6.0 (5.0-8.0) Urine Specific [place] 1.015 (1.003-1.035) Urine Protein Tracemg/dL (NEG,TRACE) Urine Glucose (UA) Negativemg/dL (NEGATIVE) Urine Ketones Negativemg/dL (NEGATIVE) Urine Occult Blood Trace (NEGATIVE) Urine Nitrite Negative (NEGATIVE) Urine Bilirubin Negative (NEGATIVE) Urine Urobilinogen 1.0mg/dL (NORMAL) Urine Leukocyte Esterase Negative (NEGATIVE) Urine RBC 0-2/hpf (0-2) Urine WBC 0-5/hpf (0-5) Urine Epithelial Cells None/hpf (NONE-MOD) Urine Crystals None seen (NONE SEEN) Urine Bacteria Few/hpf (NONE-FEW) Urine Hyaline Casts None/lpf (NONE) Urine Granular Casts None seen (NONE SEEN) Urine Waxy Casts None seen (NONE SEEN) Urine Red Blood Cell Casts None seen (NONE SEEN) Urine White Blood Cell Casts None seen (NONE SEEN) Urine Mucus None seen (None Seen) Urine Trichomonas None seen (NONE SEEN) Urine Yeast None (NONE SEEN) Urinalysis Comment None Urine Osmolality 253mOs/kH2O (250-1200) Urine Random Sodium 10mEq/L Hold Urine Received (Received) Test 12/26/16 19:45 12/27/16 04:45 12/27/16 07:00 12/30/16 08:45 Osmolality 266 (275-300) Troponin T 0.034ug/L (0.0-0.011) Pro-B-Type Natriuretic Peptide 4665pg/mL (0-376) Thyroid Stimulating Hormone (TSH) 1.080uIU/mL (0.450-4.500) Free Thyroxine 1.22ng/dL (0.82-1.77) Lactic Acid Level 1.1mmol/L (0.4-2.0) Vancomycin Level Trough 21.9mcg/mL Test 12/31/16 05:00 01/07/17 16:33 01/08/17 01:20 01/10/17 05:32 Cryptococcus Antigen Negative (Negative) Aspergillus galactomannan Antigen 0.03Index (0.00-0.49) Body Fluid Source Bronchial washing Body Fluid Color [place] (Clear) Body Fluid Appearance Hazy Body Fluid WBC 80/mm3 Body Fluid RBC 1900/mm3 Body Fluid Polynuclear WBCs 2% Body Fluid Lymphocytes 8% Body Fluid Monocytes 27% Body Fluid Eosinophils 0% Body Fluid Basophils 0% Hold [place] Top Tube Received (Received) Prealbumin 8mg/dL (20-40) Procalcitonin 0.60ng/mL (0.00-0.08) Test 01/10/17 10:15 01/13/17 07:45 01/15/17 05:05 01/16/17 07:05 Fungal Antibodies 109pg/mL (<80) Direct Bilirubin 0.3mg/dL (0.0-0.3) Total Bilirubin 0.7mg/dL (0.0-1.2) Aspartate Amino Transf (AST/SGOT) 27U/L (0-50) Alanine Aminotransferase (ALT/SGPT) 34U/L (0-44) Alkaline Phosphatase 206U/L (25-160) Total Protein 5.4g/dL (6.4-8.4) Albumin 2.4g/dL (3.4-5.0) Hematology Comments Rbc Test 01/17/17 05:16 01/18/17 05:25 Band Neutrophils % 1% (1-5) White Blood Count 4.9th/mm3 (3.8-10.1) Red Blood Count 2.76mil/mm3 (4.40-5.80) Hemoglobin 8.3g/dL (13.8-17.2) Hematocrit 25.1% (41.0-50.0) Mean Corpuscular Volume 90.9fL (81-100) Mean Corpuscular Hemoglobin 30.1pg (27.0-35.0) Mean Corpuscular Hemoglobin Concent 33.1% (32.0-37.0) Red Cell Distribution Width 15.8% (12.3-15.4) Platelet Count 46bil/L (150-400) Neutrophils (%) (Auto) 74.7% (40-74) Lymphocytes (%) (Auto) 10.3% (14-46) Monocytes (%) (Auto) 9.7% (4-12) Eosinophils (%) (Auto) 0% (0-5) Basophils (%) (Auto) 0.6% (0-3) Sodium Level 132mEq/L (134-144) Potassium Level 4.5mEq/L (3.5-5.2) Chloride Level 94mEq/L (97-108) Carbon Dioxide Level 24mmol/L (18-29) Blood Urea Nitrogen 14mg/dL (8-27) Creatinine 0.51mg/dL (0.76-1.27) Estimat Glomerular Filtration Rate 169mL/min (>59) Glucose Level 109mg/dL (60-99) Calcium Level 9.6mg/dL (8.5-10.1) Phosphorus Level 4.3mg/dL (2.5-4.9) Magnesium Level 1.7mg/dL (1.6-2.6) Discharge Medications Discharge Medications Cholecalciferol (Vitamin D3) (Vitamin D3) 4,000 Unit Capsule 4,000 UNIT PO DAILY (Reported) Cyanocobalamin (Vitamin B12) 500 Mcg Tablet 1,000 MCG PO DAILY (Reported) Diltiazem ER (Cartia XT) 120 Mg Cap.er.24h 120 MG PO QAM (Reported) Fluconazole (Fluconazole) 200 Mg Tablet 400 MG PO DAILY Prescribed by: AMANDA JASON DO Gluc 2Kcl/Chondr/Ratna Hy/Hy AC (Glucosamine & Chondroitin Cap) 1 Each Capsule 1 EACH PO DAILY (Reported) Lorazepam (Ativan) 1 Mg Tablet 1 MG PO HS Prescribed by: AMANDA JASON DO Magnesium Citrate (Magnesium Citrate) 100 Mg Tablet 100 MG PO DAILY (Reported) Melatonin (Melatonin) 3 Mg Tablet.er 3 MG PO HS (Reported) Multivitamin (Once Daily) 1 Each Tablet 1 EACH PO DAILY (Reported) [place]-3 Fatty Acids (Fish Oil) 300 Mg Capsule 900 MG PO DAILY (Reported) Omeprazole (Omeprazole) 20 Mg Capsule.dr 20 MG PO QAM (Reported) Ubidecarenone (Coq-10) 100 Mg Capsule 100 MG PO DAILY (Reported) As needed Acetaminophen (Tylenol Arthritis) 650 Mg Tablet.er 1,300 MG PO DAILY PRN PRN For Pain (Reported) Clobetasol Propionate (Clobetasol Propionate) 15 Gm Oint...g. 1 APPLIC TOPICAL DAILY PRN PRN scalp itching (Reported) Naproxen Sodium (Aleve) 220 Mg Capsule 220 MG PO BID PRN PRN For Pain (Reported ) Sildenafil Citrate (Viagra) 100 Mg Tablet 50 MG PO DAILY PRN PRN for sexual activity (Reported) Additional med instructions Please take fluconazole as prescribed. Followup Plan Follow-up plan Please follow up with Dr. Balbuena next week 01/24/17 for CBC and other evaluation. Pl follow up with Dr. Hackett on February 02 at his clinic Please f/u with PCP in 3-4 weeks Repeat CBC with diff, CMP prior to f/u with Dr. Balbuena on 01/24/17 Discharge Diet: Heart Healthy Discharge Activity: No restrictions Patient Instructions Please follow up with Dr. Balbuena next week for CBC and other evaluation. Pl follow up with Dr. Hackett on February 02 at his clinic Time spent 35 min Amanda Jason DO January 18, 2017 15:02
[2017-01-31] MEDS ORDERED: ASCO-294 PO (12:29)
[2017-01-31] MEDS ORDERED: VIT1TABL83 PO (12:29)
[2017-01-31] MEDS ORDERED: LORA1TAB PO (17:03)
== END 2017-01-18 17:10 | disposition home or self-care (01) | DRG 808 ==
LOC: SED 10:03 → OSC 15:02
PROVIDERS: ADMIT Internal Medicine; ATTEND Internal Medicine
PROC: 30233N1 Transfusion of Nonautologous Red Blood Cells into Peripheral Vein, Percutaneous Approach (ICD-10-PCS; principal; 2016-12-25)
PROC: 30233R1 Transfusion of Nonautologous Platelets into Peripheral Vein, Percutaneous Approach (ICD-10-PCS; 2016-12-27)
PROC: 30233N1 Transfusion of Nonautologous Red Blood Cells into Peripheral Vein, Percutaneous Approach (ICD-10-PCS; 2016-12-27)
PROC: 0B9B8ZX Drainage of Left Lower Lobe Bronchus, Via Natural or Artificial Opening Endoscopic, Diagnostic (ICD-10-PCS; 2017-01-07)
PROC: 0B948ZX Drainage of Right Upper Lobe Bronchus, Via Natural or Artificial Opening Endoscopic, Diagnostic (ICD-10-PCS; 2017-01-07)
PROC: 30233R1 Transfusion of Nonautologous Platelets into Peripheral Vein, Percutaneous Approach (ICD-10-PCS; 2017-01-07)
PROC: 30233N1 Transfusion of Nonautologous Red Blood Cells into Peripheral Vein, Percutaneous Approach (ICD-10-PCS; 2017-01-11)
DX: D70.3 Neutropenia due to infection (principal); B37.7 Candidal sepsis; C92.Z1 Other myeloid leukemia, in remission; E87.1 Hypo-osmolality and hyponatremia; R50.81 Fever presenting with conditions classified elsewhere; D64.9 Anemia, unspecified; I10 Essential (primary) hypertension; G47.00 Insomnia, unspecified; K21.9 Gastro-esophageal reflux disease without esophagitis; Z87.891 Personal history of nicotine dependence; D69.6 Thrombocytopenia, unspecified; J34.89 Other specified disorders of nose and nasal sinuses; B95.62 Methicillin resistant Staphylococcus aureus infection as the cause of diseases classified elsewhere; T45.1X5A Adverse effect of antineoplastic and immunosuppressive drugs, initial encounter; E87.70 Fluid overload, unspecified; I48.0 Paroxysmal atrial fibrillation

== ENCOUNTER 2017-04-22 19:52 | Emergency (ER) | payer MEDICARE, OTHER ==
[~2017-04-22] VITALS: Ht 182.9 cm; Wt 69.1 kg
[~2017-04-22 19:52] MED LIST changes: +ASCO-294 PO; +FURO-129 PO; -LEVO500T16 PO; -LORA-303 PO; +LORA1TAB PO; -LOSA50TA3 PO; +NAPR220C11 PO; +VIT1TABL83 PO
[2017-04-22 19:56] VITALS: BP 137/72; PULSE 81; RESP 16; O2SAT 100
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
[2017-04-22 20:34] LABS: BASOPHILS % (AUTO) 0.6 % (0-3); EOSINOPHILS % (AUTO) 1.5 % (0-5); MONOCYTES % (AUTO) 9.8 % (4-12); Mean Corpuscular Hemoglobin 31.4 pg (27.0-35.0); Mean Corpuscular Volume 95.7 fL (81-100); NEUTROPHILS % (AUTO) 76.2 % (40-74); Platelet Count 223 bil/L (150-400)
[2017-04-22] MEDS ORDERED: HYDROcodone-APAP 5-325 mg Tablet PO ONE (20:40)
[2017-04-22 20:53] LABS: TROPONIN T < 0.010 ug/L (0.0-0.011)
[2017-04-22 21:03] LABS: Magnesium 1.8 mg/dL (1.6-2.6)
--- NOTE | 2017-04-22 21:13 | DRSVH ---
PROCEDURE: X-RAY CHEST, TWO VIEWS ([id number]) INDICATIONS: Right flank thoracic pain TECHNIQUE: 2 views of the chest were acquired. COMPARISON: None. FINDINGS: Surgical changes and devices: None. Lungs and pleura: No pleural effusions or pneumothorax. Lungs are clear. Mediastinum: Mediastinal contours are normal. Heart size is normal. Bones and chest wall: No suspicious bony abnormalities. Soft tissues appear unremarkable. IMPRESSION: No acute pulmonary process. Dictated by: Fernanda Gaines M.D. on 04/22/2017 at 21:08 Approved by: Fernanda Gaines M.D. on 04/22/2017 at 21:12
[2017-04-22 21:52] LABS: APPEARANCE,URINE CLEAR (CLEAR,HAZY); COLOR,URINE YELLOW (YELLOW); OCCULT BLOOD,URINE NEGATIVE (NEGATIVE); UROBILINOGEN,URINE NORMAL (NORMAL)
--- NOTE | 2017-04-22 21:57 | DRSVH ---
PROCEDURE: CT ANGIO CHEST PULMONARY EMBOLISM ([id number]) INDICATIONS: chest pain TECHNIQUE: After the administration of intravenous contrast, 2 mm thick sections acquired from the pulmonary api anil to the posterior costophrenic angles. 3-dimensional maximum intensity projection (MIP) coronal a nd sagittal reformats were then acquired through the thorax. For radiation dose reduction, the follo wing was used: automated exposure control, adjustment of mA and/or kV according to patient size. COMPARISON: None. FINDINGS: Image quality: Excellent. Pulmonary arteries: Pulmonary arteries are normal in size, and demonstrate no intraluminal filling d efects to suggest central pulmonary embolism. Lungs and pleura: Lungs are clear. No pleural effusions or pneumothorax. Central and peripheral ai rways are patent. Mediastinum: Heart size is normal, without pericardial effusion. No mediastinal or hilar adenopathy . Thoracic aorta is normal in caliber and enhancement. Esophagus is normal in caliber, without hiat al hernia. Bones and chest wall: No suspicious bony lesions. Ribs and thoracic spine appear intact throughout. Thyroid gland is unremarkable. No axillary or supraclavicular adenopathy. Abdomen: Partially visualized hepatic hypodensities are unchanged. Otherwise, visualized upper abdo dru solid organs appear normal in the early arterial phase of enhancement. IMPRESSION: 1. No visualized pulmonary embolism. 2. Unchanged bilateral predominantly subcentimeter pulmonary nodules. Dictated by: Fernanda Gaines M.D. on 04/22/2017 at 21:50 Approved by: Fernanda Gaines M.D. on 04/22/2017 at 21:56
[2017-04-22 22:33] VITALS: BP 150/72; PULSE 79; RESP 18; O2SAT 99
[2017-04-22] MEDS ORDERED: _HYDROcodone/APAP 5-325 mg Tablet PO PRN (23:10)
[2017-04-22 23:54] VITALS: BP 142/87; PULSE 85; RESP 18; O2SAT 98
--- NOTE | 2017-04-23 09:40 | DRSVH ---
PROCEDURE: US ABDOMEN, LIMITED ([id number]) INDICATIONS: ruq tender TECHNIQUE: Real-time focused scanning was performed of the abdomen, with image documentation. COMPARISON: None. FINDINGS: The liver is mildly enlarged with an appearance of steatosis. Focal areas of increased echogenicity a re identified within the gallbladder. Gallbladder is overall contracted and wall thickness is at the upper limits of normal. Sonographic Gates's sign is noted to be present. No pericholecystic fluid. T here is no biliary dilation. Visualized portions of the kidneys are unremarkable. IMPRESSION: Cholelithiasis with wall thickness at the upper limits of normal. Wall thickening could b e secondary to contraction, developing cholecystitis cannot be definitively excluded and recommend in terval clinical and imaging followup. Dictated by: Fernanda Gaines M.D. on 04/23/2017 at 9:36 Approved by: Fernanda Gaines M.D. on 04/23/2017 at 9:39
== END 2017-04-22 23:55 | disposition home or self-care (01) ==
LOC: SED 19:52
DX: K80.20 Calculus of gallbladder without cholecystitis without obstruction (principal); I10 Essential (primary) hypertension; K21.9 Gastro-esophageal reflux disease without esophagitis; Z87.891 Personal history of nicotine dependence; Z88.1 Allergy status to other antibiotic agents; Z88.5 Allergy status to narcotic agent; Z88.8 Allergy status to other drugs, medicaments and biological substances
CPT/HCPCS: 36415; 71020; 71275; 76705; 80053; 81000; 83735; 84484; 85025; 85378; 93005; 99285; Q9967